=== PATIENT | male | born 1950 | race Caucasian/White ===

== ENCOUNTER 2017-03-28 10:54 | Emergency (ER) | payer MEDICARE ==
[~2017-03-28] VITALS: Ht 182.9 cm; Wt 68.0 kg
[2017-03-28 10:55] VITALS: BP 140/77; PULSE 82; RESP 16; TEMP 98.1; O2SAT 98
[2017-03-28] MEDS ORDERED: ALPR.5 PO (11:28)
[2017-03-28] MEDS ORDERED: CITA20TA4 PO (11:28)
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
[2017-03-28] MEDS ORDERED: CEPH-460 PO (12:33)
[2017-03-28] MEDS ORDERED: IBUP-232 PO (12:39)
[2017-03-28] MEDS ORDERED: TETANUS/DIPHTHERIA TOXOID ADULT 0.5 ML VIAL IM ONE (12:45)
== END 2017-03-28 13:09 | disposition home or self-care (01) ==
LOC: NEPK 10:54
DX: S81.811A Laceration without foreign body, right lower leg, initial encounter (principal); X58.XXXA Exposure to other specified factors, initial encounter; Y93.01 Activity, walking, marching and hiking; Y92.832 Beach as the place of occurrence of the external cause; Z23 Encounter for immunization
CPT/HCPCS: 12002; 90471; 90714

== ENCOUNTER 2017-05-21 07:24 | Emergency (ER) | payer MEDICARE ==
[~2017-05-21 07:24] MED LIST: ALPR.5 PO; CEPH-460 PO; CITA20TA4 PO; IBUP-232 PO
[2017-05-21 07:33] VITALS: BP 134/82; PULSE 87; RESP 18; TEMP 98.7; O2SAT 98
[2017-05-21] MEDS ORDERED: ACETAMINOPHEN/HYDROcodone 325 MG/5 MG TAB PO ONE (08:00)
[2017-05-21] MEDS ORDERED: predniSONE 20 MG TAB PO ONE (08:00)
[2017-05-21] MEDS ORDERED: ORPHENADRINE INJ 60 MG/2 ML AMP IM ONE (08:00)
[2017-05-21] MEDS ORDERED: KETOROLAC TROMETHAMINE 60 MG/2 ML (IM) VIAL IM ONE (08:00)
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
[2017-05-21] MEDS ORDERED: ROBA500T PO (08:11)
[2017-05-21] MEDS ORDERED: IBUP-232 PO (08:11)
[2017-05-21] MEDS ORDERED: CEPH-460 PO (08:11)
[2017-05-21] MEDS ORDERED: MEDR4PAK PO (08:12)
[2017-05-21 09:13] VITALS: BP 132/75
== END 2017-05-21 09:15 | disposition home or self-care (01) ==
LOC: NEPD 07:24
DX: L03.113 Cellulitis of right upper limb (principal)
CPT/HCPCS: 96372; 99284; J1885; J2360; J7512

== ENCOUNTER 2017-05-22 04:09 | Inpatient (IN) | payer MEDICARE ==
[2017-05-22] VITALS (15 sets, daily range): BP systolic 91–173; BP diastolic 52–104; PULSE 72–167; RESP 15–20; TEMP 97–99.4; O2SAT 92–100
[~2017-05-22] VITALS: Ht 182.9 cm; Wt 75.0 kg
[~2017-05-22 04:09] MED LIST changes: +MEDR4PAK PO; +ROBA500T PO
[2017-05-22] MEDS ORDERED: SODIUM CHLOR 0.9% 1000 ML INJ 1,000 ML IV SCH ×2 (04:43→05:52)
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
[2017-05-22 05:08] LABS: AUTOMATED NEUTROPHIL # 13.1 TH/MM3 (1.8-7.7); BASOPHIL % 0.2 % (0.0-2.0); HEMATOCRIT 48.1 % (39.0-51.0); HEMOGLOBIN 16.7 GM/DL (13.0-17.0); LYMPH % 1.6 % (9.0-44.0); LYMPHOCYTE # 0.2 TH/MM3 (1.0-4.8); MEAN CELL VOLUME 95.1 FL (80.0-100.0); MEAN CORPUSCULAR HGB CONC 34.7 % (32.0-36.0); MEAN PLATELET VOLUME 8.2 FL (7.0-11.0); MONO % 5.7 % (0.0-8.0); MONOCYTE # 0.8 TH/MM3 (0-0.9); NEUT % 92.5 % (16.0-70.0); PLATELET COUNT 133 TH/MM3 (150-450); RED BLOOD COUNT 5.06 MIL/MM3 (4.50-5.90); RED CELL DISTRIBUTION WIDTH 13.3 % (11.6-17.2); WHITE BLOOD COUNT 14.2 TH/MM3 (4.0-11.0)
[2017-05-22 05:17] LABS: INTERNATIONAL NORMALIZED RATIO 1.2 RATIO; PROTHROMBIN TIME - PATIENT 11.7 SEC (9.8-11.6)
[2017-05-22 05:30] LABS: ALBUMIN 3.9 GM/DL (3.4-5.0); AST (GOT) 62 U/L (15-37); BICARBONATE 23.8 MEQ/L (21.0-32.0); BLOOD UREA NITROGEN 27 MG/DL (7-18); CALCIUM 9.3 MG/DL (8.5-10.1); CHLORIDE 96 MEQ/L (98-107); CREATININE 1.49 MG/DL (0.60-1.30); GLOMERULAR FILTRATION RATE 47 ML/MIN (>89); GLUCOSE,RANDOM 85 MG/DL (74-106); SODIUM (NA) 133 MEQ/L (136-145)
[2017-05-22 05:31] LABS: LACTIC ACID SEPSIS PROTOCOL 3.4 mmol/L (0.4-2.0)
[2017-05-22 05:32] LABS: ALT (GPT) 74 U/L (12-78)
[2017-05-22 05:33] LABS: ALKALINE PHOSPHATASE 118 U/L (45-117); TOTAL BILIRUBIN ADULT 2.5 MG/DL (0.2-1.0); TOTAL PROTEIN 8.4 GM/DL (6.4-8.2)
--- NOTE | 2017-05-22 05:34 | RADRPT ---
EXAM DATE/TIME: 05/22/2017 05:23 [facility] COMPARISON: No previous studies available for comparison. INDICATIONS : Fever. MEDICAL HISTORY : Unable to obtain. SURGICAL HISTORY : Unable to obtain. ENCOUNTER: Initial ACUITY: 1 day PAIN SCORE: Non-responsive. LOCATION: Bilateral chest FINDINGS: Single AP view of the chest. The lungs are clear. Cardiomediastinal silhouette within normal limits. No evidence of pleural effusion or pneumothorax. CONCLUSION: No acute cardiopulmonary disease identified. Scott Morfin MD on May 22, 2017 at 5:32 Board Certified Radiologist. This report was verified electronically.
--- NOTE | 2017-05-22 05:44 | RADRPT ---
EXAM DATE/TIME: 05/22/2017 05:16 [facility] COMPARISON: No previous studies available for comparison. INDICATIONS : Altered mental status. RADIATION DOSE: 52.13 CTDIvol (mGy) MEDICAL HISTORY : Non-responsive. SURGICAL HISTORY : Non-responsive. ENCOUNTER: Initial ACUITY: 1 day PAIN SCALE: Non-responsive LOCATION: cranial TECHNIQUE: Multiple contiguous axial images were obtained of the head. Using automated exposure control and adj ustment of the mA and/or kV according to patient size, radiation dose was kept as low as reasonably a chievable to obtain optimal diagnostic quality images. DICOM format image data is available electro nically for review and comparison. FINDINGS: CEREBRUM: The ventricles are normal for age. No evidence of midline shift, mass lesion, hemorrhage or acute in farction. No extra-axial fluid collections are seen. POSTERIOR FOSSA: The cerebellum and brainstem are intact. The 4th ventricle is midline. The cerebellopontine angle i s unremarkable. EXTRACRANIAL: The visualized portion of the orbits is intact. SKULL: The calvaria is intact. No evidence of skull fracture. CONCLUSION: No acute intracranial findings. Scott Morfin MD on May 22, 2017 at 5:36 Board Certified Radiologist. This report was verified electronically.
[2017-05-22] MEDS ORDERED: PIPERACIL-TAZO 3.375 GM PREMIX 50 ML IV ONE (05:45)
[2017-05-22] MEDS ORDERED: VANCOMYCIN INJ 1,000 MG in SODIUM CHLOR 0.9% 250 ML INJ 250 ML IV ONE (05:45)
[2017-05-22 05:52] LABS: BANDS 16 % (0-6); LYMPHOCYTES 4 % (9-44); METAMYELOCYTES 14 % (0-1); MONOCYTES 3 % (0-8); NEUTROPHIL # MANUAL DIFF 13.2 TH/MM3 (1.8-7.7); POLYS (SEG NEUTROPHILS) 63 % (16-70)
[2017-05-22 05:54] LABS: TOXIC VACUOLATION PRESENT (NONE SEEN)
[2017-05-22] MEDS ORDERED: MAGNESIUM HYDROXIDE SUSP 30 ML CUP PO PRN (06:15)
[2017-05-22] MEDS ORDERED: BISACODYL 10 MG SUPP RECTAL PRN (06:15)
[2017-05-22] MEDS ORDERED: SENNOSIDES 8.6 MG TAB PO PRN (06:15)
[2017-05-22] MEDS ORDERED: ONDANSETRON HCL 4 MG/2 ML VIAL IVP PRN (06:15)
[2017-05-22] MEDS ORDERED: Vancomycin Consult Pharmacy 1 EA OTHER SCH (06:15)
[2017-05-22] MEDS ORDERED: SODIUM CHLORIDE 0.9% FLUSH 10 ML FLUSH IV FLUSH PRN (06:15)
[2017-05-22] MEDS ORDERED: LACTULOSE SYRUP 20 GM/30 ML CUP PO PRN (06:15)
[2017-05-22 06:30] LABS: BILIRUBIN, URINE NEG (NEG); BLOOD, URINE NEG (NEG); GLUCOSE,URINE NEG (NEG); HYALINE CAST, URINE 1 /lpf (RARE); KETONE, URINE 10 mg/dL (NEG); MUCUS URINE FEW /lpf (OCC); NITRITE,URINE NEG (NEG); URINE COLOR YELLOW (YELLW/STRAW); URINE LEUKOCYTE ESTERASE TRACE (NEG)
[2017-05-22] MEDS: SODIUM CHLOR 0.9% 1000 ML INJ 1,000 ML IV SCH ×2 (07:06→18:39)
[2017-05-22] MEDS ORDERED: MIDAZOLAM HCL 2 MG/2 ML VIAL IV PUSH ONE (07:30)
--- NOTE | 2017-05-22 07:35 | PD ---
Physical Exam Date Seen by Provider: May 22, 2017 Narrative 66-year-old male presents to the department with low back pain altered mental status. Patient was evaluated and admitted. While patient was in the emergency department, he became increasingly anxious and began pulling on IV lines and equipment. I decided to administer Versed 2 mg so that patient may go to MRI to rule out epidural abscess. Pt will be monitored. An MRI screen form was not completed secondary to AMS. We attempted to reach the family for any information, however, we were unable to do so. Pt was being transported for admission prior to obtaining this form. Pt left in stable condition, premedicated for the MRI. Data Data Last Documented VS Vital Signs Date Time Temp Pulse Resp B/P (MAP) Pulse Ox O2 Delivery O2 Flow Rate FiO2 05/22/17 06:05 92 16 146/72 (96) 99 Room Air 05/22/17 04:31 98.0 Orders Orders Sepsis Workup Initiated (05/22/17 ) Electrocardiogram (05/22/17 04:43) Complete Blood Count With Diff (05/22/17 04:43) Comprehensive Metabolic Panel (05/22/17 04:43) Lactic Acid Sepsis Protocol (05/22/17 04:43) Urinalysis - C+S If Indicated (05/22/17 04:43) Blood Culture (05/22/17 04:43) Chest, Single Ap (05/22/17 04:43) Blood Glucose (05/22/17 04:43) Ecg Monitoring (05/22/17 04:43) Iv Access Insert/Monitor (05/22/17 04:43) Oximetry (05/22/17 04:43) Oxygen Administration (05/22/17 04:43) Ct Brain W/O Iv Contrast(Rout) (05/22/17 04:43) Mri L Spine W&W/O Contrast (05/22/17 ) Act Partial Throm Time (Ptt) (05/22/17 04:43) Prothrombin Time / Inr (Pt) (05/22/17 04:43) Drug Screen, Random Urine (05/22/17 04:43) Alcohol (Ethanol) (05/22/17 04:43) Sodium Chlor 0.9% 1000 Ml Inj (Ns 1000 M (05/22/17 04:43) Vancomycin Inj (Vancomycin Inj) (05/22/17 05:45) Piperacil-Tazo 3.375 Gm Premix (Zosyn 3. (05/22/17 05:45) Sodium Chlor 0.9% 1000 Ml Inj (Ns 1000 M (05/22/17 05:52) Admit Order (Ed Use Only) (05/22/17 06:15) Labs Laboratory Tests Test 05/22/17 04:50 05/22/17 05:50 White Blood Count 14.2 TH/MM3 Red Blood Count 5.06 MIL/MM3 Hemoglobin 16.7 GM/DL Hematocrit 48.1 % Mean Corpuscular Volume 95.1 FL Mean Corpuscular Hemoglobin 33.0 PG Mean Corpuscular Hemoglobin Concent 34.7 % Red Cell Distribution Width 13.3 % Platelet Count 133 TH/MM3 Mean Platelet Volume 8.2 FL Neutrophils (%) (Auto) 92.5 % Lymphocytes (%) (Auto) 1.6 % Monocytes (%) (Auto) 5.7 % Eosinophils (%) (Auto) 0.0 % Basophils (%) (Auto) 0.2 % Neutrophils # (Auto) 13.1 TH/MM3 Lymphocytes # (Auto) 0.2 TH/MM3 Monocytes # (Auto) 0.8 TH/MM3 Eosinophils # (Auto) 0.0 TH/MM3 Basophils # (Auto) 0.0 TH/MM3 CBC Comment AUTO DIFF Differential Total Cells Counted 100 Neutrophils % (Manual) 63 % Band Neutrophils % 16 % Lymphocytes % 4 % Monocytes % 3 % Neutrophils # (Manual) 13.2 TH/MM3 Metamyelocytes 14 % Differential Comment FINAL DIFF MANUAL Atypical Lymphocytes % Toxic Vacuolation PRESENT Platelet Estimate LOW Platelet Morphology Comment NORMAL Red Cell Morphology Comment NORMAL Prothrombin Time 11.7 SEC Prothromb Time International Ratio 1.2 RATIO Activated Partial Thromboplast Time 32.3 SEC Blood Urea Nitrogen 27 MG/DL Creatinine 1.49 MG/DL Random Glucose 85 MG/DL Total Protein 8.4 GM/DL Albumin 3.9 GM/DL Calcium Level 9.3 MG/DL Alkaline Phosphatase 118 U/L Aspartate Amino Transf (AST/SGOT) 62 U/L Alanine Aminotransferase (ALT/SGPT) 74 U/L Total Bilirubin 2.5 MG/DL Sodium Level 133 MEQ/L Potassium Level 3.9 MEQ/L Chloride Level 96 MEQ/L Carbon Dioxide Level 23.8 MEQ/L Anion Gap 13 MEQ/L Estimat Glomerular Filtration Rate 47 ML/MIN Lactic Acid Level 3.4 mmol/L Ethyl Alcohol Level LESS THAN 3 MG/DL Urine Color YELLOW Urine Turbidity HAZY Urine pH 5.0 Urine Specific [place] 1.012 Urine Protein TRACE mg/dL Urine Glucose (UA) NEG mg/dL Urine Ketones 10 mg/dL Urine Occult Blood NEG Urine Nitrite NEG Urine Bilirubin NEG Urine Urobilinogen LESS THAN 2.0 MG/DL Urine Leukocyte Esterase TRACE Urine RBC 1 /hpf Urine WBC 2 /hpf Urine Hyaline Casts 1 /lpf Urine Granular Casts 1 /lpf Urine Mucus FEW /lpf Urine Yeast (Budding) FEW Microscopic Urinalysis Comment CATH-CULT NOT IND Urine Opiates Screen NEG Urine Barbiturates Screen NEG Urine Amphetamines Screen NEG Urine Benzodiazepines Screen NEG Urine Cocaine Screen POS Urine Cannabinoids Screen NEG MDM Supervised Visit with BIB: Yes Diagnosis Primary Impression: Altered mental status Additional Impressions: Substance abuse Lower back pain Sepsis Jeanne Heard May 22, 2017 07:35
[2017-05-22] MEDS: DOCUSATE SODIUM 50 MG/SENNA 8.6 MG TAB PO SCH ×2 (09:00→21:00)
[2017-05-22] MEDS: SODIUM CHLORIDE 0.9% FLUSH 10 ML FLUSH IV FLUSH SCH ×2 (09:00→21:00)
[2017-05-22] MEDS ORDERED: LORazepam 1 MG TAB PO PRN (11:30)
[2017-05-22] MEDS ORDERED: FLUMAZENIL 0.5 MG/5 ML VIAL IV PUSH PRN (11:30)
--- NOTE | 2017-05-22 11:30 | HHI.HP ---
HPI Service [facility] Primary Care Physician Unknown Admission Diagnosis sepsis, AMS, lower back pain, IV drug abuse Diagnoses: (1) Sepsis (2) Toxic metabolic encephalopathy (3) Bandemia (4) ARF (acute renal failure) (5) Leukocytosis (6) Acidosis, lactic (7) Polysubstance abuse (8) Lower back pain Chief Complaint: Initial presentation with back pain, AMS Travel History International Travel<30 Days: No Contact w/Intl Traveler <30 Da: No Traveled to Known Affected Are: No Sepsis Criteria SIRS Criteria (2 or more): Heart rate over 90, WBC > 77149, < 4000 or > 10% bands Severe Sepsis (+one): Lactate >2 Criteria Outcome: Meets sepsis criteria History of Present Illness 66 years old male with a history of arthritis was brought to the ED initially for complaint of back pain, mentation change of unknown duration, and patient was found to have UDS positive for cocaine. While in the emergency department apparently patient became increasingly anxious and combative and was trying to pull out his IV lines. Initially MRI of the spine was ordered to rule out epidural abscess, however this hasn't been completed secondary to patient's altered mental status change. Patient was then transported on the floor and admitted to medicine team. Patient continue to be restless and attempted to pull out his IV lines despite soft upper restraints in place. Although patient was alert, and oriented to self but not place and date, he was requested that he will be left alone and discharge out of this place. Abnormal labs included WBC 14.2 with bandemia, initial lactic acid 3.4, BUN/abdomen 27/ 1.49 and a UDS positive for cocaine. Head CT with no acute intracranial abnormality findings and a chest x-ray unremarkable. Unable to obtain an accurate review of organ systems as patient denies ANYTHING Review of Systems ROS Limitations: Altered Mental Status, Combative Except as stated in HPI: all other systems reviewed are Neg Past Family Social History Past Medical History Arthritis Anxiety Past Surgical History Denies any prior surgeries Reported Medications Medrol Dosepak (Methylprednisolone) 4 Mg Dspk 4 Mg PO DIRECTED Per Pharmacist direction Ibuprofen 600 Mg Tab 600 Mg PO TID 5 Days Robaxin (Methocarbamol) 500 Mg Tab 500 Mg PO TID 3 Days Keflex (Cephalexin) 500 Mg Cap 500 Mg PO Q8H 7 Days Ibuprofen 600 Mg Tab 600 Mg PO Q8HR PRN Keflex (Cephalexin) 500 Mg Capsule 500 Mg PO Q6H 7 Days Reported Citalopram (Citalopram Hydrobromide) 20 Mg Tab 20 Mg PO DAILY Xanax (Alprazolam) 0.5 Mg Tab 0.5 Mg PO Q4H PRN Allergies: Coded Allergies: No Known Allergies (Unverified Allergy, Unknown, 05/22/17) Family History He reported that he has no family history of heart disease, cancer Social History Alcohol Use: No Tobacco Use: No Substance Use: No Physical Exam Vital Signs Vital Signs Date Time Temp Pulse Resp B/P (MAP) Pulse Ox O2 Delivery O2 Flow Rate FiO2 05/22/17 08:00 97.0 167 20 155/104 (121) 05/22/17 07:42 97.9 78 16 140/83 (102) 98 05/22/17 07:25 78 16 05/22/17 06:05 92 16 146/72 (96) 99 Room Air 05/22/17 04:57 20 05/22/17 04:57 Room Air 05/22/17 04:31 98.0 05/22/17 04:19 98 15 173/95 (121) 99 Room Air Physical Exam GENERAL: This is a well-nourished, well-developed patient, in no apparent distress. SKIN: No rashes, ecchymoses or lesions. Cool and dry. HEAD: Atraumatic. Normocephalic. No temporal or scalp tenderness. EYES: Pupils equal round and reactive. Extraocular motions intact. No scleral icterus. No injection or drainage. ENT: Nose without bleeding, purulent drainage or septal hematoma. Throat without erythema, tonsillar hypertrophy or exudate. Uvula midline. Airway patent. NECK: Trachea midline. No JVD or lymphadenopathy. Supple, nontender, no meningeal signs. CARDIOVASCULAR: Regular rate and rhythm without murmurs, gallops, or rubs. RESPIRATORY: Clear to auscultation. Breath sounds equal bilaterally. No wheezes , rales, or rhonchi. GASTROINTESTINAL: Abdomen soft, non-tender, nondistended. No hepato-splenomegaly , or palpable masses. No guarding. MUSCULOSKELETAL: Extremities without clubbing, cyanosis, or edema. No joint tenderness, effusion, or edema noted. No calf tenderness. Negative Homans sign bilaterally. NEUROLOGICAL: Awake and alert. Cranial nerves II through XII intact. Motor and sensory grossly within normal limits. Five out of 5 muscle strength in all muscle groups. Normal speech. Laboratory Laboratory Tests Test 05/22/17 04:50 05/22/17 05:50 05/22/17 07:06 White Blood Count 14.2 Red Blood Count 5.06 Hemoglobin 16.7 Hematocrit 48.1 Mean Corpuscular Volume 95.1 Mean Corpuscular Hemoglobin 33.0 Mean Corpuscular Hemoglobin Concent 34.7 Red Cell Distribution Width 13.3 Platelet Count 133 Mean Platelet Volume 8.2 Neutrophils (%) (Auto) 92.5 Lymphocytes (%) (Auto) 1.6 Monocytes (%) (Auto) 5.7 Eosinophils (%) (Auto) 0.0 Basophils (%) (Auto) 0.2 Neutrophils # (Auto) 13.1 Lymphocytes # (Auto) 0.2 Monocytes # (Auto) 0.8 Eosinophils # (Auto) 0.0 Basophils # (Auto) 0.0 CBC Comment AUTO DIFF Differential Total Cells Counted 100 Neutrophils % (Manual) 63 Band Neutrophils % 16 Lymphocytes % 4 Monocytes % 3 Neutrophils # (Manual) 13.2 Metamyelocytes 14 Differential Comment FINAL DIFF MANUAL Atypical Lymphocytes Toxic Vacuolation PRESENT Platelet Estimate LOW Platelet Morphology Comment NORMAL Red Cell Morphology Comment NORMAL Prothrombin Time 11.7 Prothromb Time International Ratio 1.2 Activated Partial Thromboplast Time 32.3 Blood Urea Nitrogen 27 Creatinine 1.49 Random Glucose 85 Total Protein 8.4 Albumin 3.9 Calcium Level 9.3 Alkaline Phosphatase 118 Aspartate Amino Transf (AST/SGOT) 62 Alanine Aminotransferase (ALT/SGPT) 74 Total Bilirubin 2.5 Sodium Level 133 Potassium Level 3.9 Chloride Level 96 Carbon Dioxide Level 23.8 Anion Gap 13 Estimat Glomerular Filtration Rate 47 Lactic Acid Level 3.4 2.7 Ethyl Alcohol Level LESS THAN 3 Urine Color YELLOW Urine Turbidity HAZY Urine pH 5.0 Urine Specific [place] 1.012 Urine Protein TRACE Urine Glucose (UA) NEG Urine Ketones 10 Urine Occult Blood NEG Urine Nitrite NEG Urine Bilirubin NEG Urine Urobilinogen LESS THAN 2.0 Urine Leukocyte Esterase TRACE Urine RBC 1 Urine WBC 2 Urine Hyaline Casts 1 Urine Granular Casts 1 Urine Mucus FEW Urine Yeast (Budding) FEW Microscopic Urinalysis Comment CATH-CULT NOT IND Urine Opiates Screen NEG Urine Barbiturates Screen NEG Urine Amphetamines Screen NEG Urine Benzodiazepines Screen NEG Urine Cocaine Screen POS Urine Cannabinoids Screen NEG Date/Time Source Procedure Growth Status 05/22/17 04:50 Blood Peripheral Aerobic Blood Culture Pending Received 05/22/17 04:50 Blood Peripheral Anaerobic Blood Culture Pending Received Result Diagram: 05/22/1744905/22/17449 Imaging Last Impressions Head CT 05/22/17442 Signed Impressions: Service Date/Time: Monday, May 22, 2017 05:16 - CONCLUSION: No acute intracranial findings. Scott Morfin MD Chest X-Ray 05/22/17442 Signed Impressions: Service Date/Time: Monday, May 22, 2017 05:23 - CONCLUSION: No acute cardiopulmonary disease identified. Scott Morfin MD Caprini VTE Risk Assessment Caprini VTE Risk Assessment: Mod/High Risk (score >= 2) Caprini Risk Assessment Model Point Value = 1 Point Value = 2 Point Value = 3 Point Value = 5 Age 41-60 Minor surgery BMI > 25 kg/m2 Swollen legs Varicose veins or History of unexplained or recurrent spontaneous Oral contraceptives or hormone replacement Sepsis (< 1 month) Serious lung disease, including pneumonia (< 1 month) Abnormal pulmonary function Acute myocardial infarction Congestive heart failure (< 1 month) History of inflammatory bowel disease Medical patient at bed rest Age 61-74 Arthroscopic surgery Major open surgery (> 45 min) Laparoscopic surgery (> 45 min) Malignancy Confined to bed (> 72 hours) Immobilizing plaster cast Central venous access Age >= 75 History of VTE Family history of VTE Factor V Leiden Prothrombin [id number] Lupus anticoagulant Anticardiolipin antibodies Elevated serum homocysteine Heparin-induced thrombocytopenia Other congenital or acquired thrombophilia Stroke (< 1 month) Elective arthroplasty Hip, pelvis, or leg fracture Acute spinal cord injury (< 1 month) Prophylaxis Regimen Total Risk Factor Score Risk Level Prophylaxis Regimen 0-1 Low Early ambulation 2 Moderate Order ONE of the following: *Sequential Compression Device (SCD) *Heparin 5000 units SQ BID 3-4 Higher Order ONE of the following medications: *Heparin 5000 units SQ TID *Enoxaparin/Lovenox 40 mg SQ daily (WT < 150 kg, CrCl > 30 mL/min) *Enoxaparin/Lovenox 30 mg SQ daily (WT < 150 kg, CrCl > 10-29 mL/min) *Enoxaparin/Lovenox 30 mg SQ BID (WT < 150 kg, CrCl > 30 mL/min) AND/OR *Sequential Compression Device (SCD) 5 or more Highest Order ONE of the following medications: *Heparin 5000 units SQ TID (Preferred with Epidurals) *Enoxaparin/Lovenox 40 mg SQ daily (WT < 150 kg, CrCl > 30 mL/min) *Enoxaparin/Lovenox 30 mg SQ daily (WT < 150 kg, CrCl > 10-29 mL/min) *Enoxaparin/Lovenox 30 mg SQ BID (WT < 150 kg, CrCl > 30 mL/min) AND *Sequential Compression Device (SCD) Assessment and Plan Problem List: (1) Sepsis ICD Code: A41.9 - Sepsis, unspecified organism Status: Acute (2) Bandemia ICD Code: D72.825 - Bandemia (3) Toxic metabolic encephalopathy ICD Code: G92 - Toxic encephalopathy (4) Leukocytosis ICD Code: D72.829 - Elevated white blood cell count, unspecified (5) Acidosis, lactic ICD Code: E87.2 - Acidosis (6) Polysubstance abuse ICD Code: F19.10 - Other psychoactive substance abuse, uncomplicated (7) ARF (acute renal failure) ICD Code: N17.9 - Acute kidney failure, unspecified (8) Thrombocytopenia ICD Code: D69.6 - Thrombocytopenia, unspecified (9) Hyponatremia ICD Code: E87.1 - Hypo-osmolality and hyponatremia Assessment and Plan 66 yrs old man with Presumed Sepsis of unknown origin Head CT noted and review by me with no intracranial findings Chest x-ray noted and review by me unremarkable UA negative Check Lumbar puncture, ESR, CRP Check 2 D echo to rule endocarditis 2/2 patient h/o PSA as well as current diagnosis Need to Complete Spine MRI to r/o abscess s/p Zosyn IV x 1 in ED and Currently on Cefepime IV; Will Add Vancomycin IV pending culture reports Infectious disease specialist consultation when necessary Leukocytosis with Bandemia Currently on IV abx Check LP, Spine MRIs Monitor WBC, cultures Lactic acidosis Infectious process ? Continue with IV antibiotics as well as aggressive IVF hydration Monitor lactic acid level Toxic metabolic encephalopathy Head CT noted and review by me with no intracranial findings Chest x-ray noted and review by me unremarkable UDS positive for cocaine Check Ammonia, Lumbar puncture Alcohol abuse/withdrawal Start Precedex drip, CIWA, rally pack Consult CCM Mild Hyponatremia 2/2 Beer potomania vs dehydration vs other Gentle IVF hydration Monitor electrolyte Tachycardia likely 2/2 Alcohol withdrawal vs dehydration vs infectious process vs others However will check ACS per protocol with serial cardiac enzyme and EKG Check 2 D echo Acute renal Failure Patient's baseline unknown Continue with aggressive IVF hydration Check Renal US PRN Avoid all nephrotoxic drugs Monitor Bun/Cr Thrombocytopenia likely 2/2 Liver disease d/t alcohol Liver US PRN Monitor plt Mild Transaminitis 2/2 Liver disease However will check Hepatitis profile Monitor LFTs DVT prophylaxis: B-SCD Keep NPO Code Status Full code Physician Certification 2 Midnight Certification Type: Admission for Inpatient Services Order for Inpatient Services The services are ordered in accordance with Medicare regulations or non- Medicare payer requirements, as applicable. In the case of services not specified as inpatient-only, they are appropriately provided as inpatient services in accordance with the 2-midnight benchmark. Estimated LOS (days): 2 days is the estimated time the patient will need to remain in the hospital, assuming treatment plan goals are met and no additional complications. Post-Hospital Plan: Not yet determined Gm Hamilton MD May 22, 2017 11:30
[2017-05-22] MEDS ORDERED: MORPHINE SULFATE 2 MG/ML INJ ONE (11:56)
[2017-05-22] MEDS ORDERED: MIDAZOLAM HCL 5 MG/ML VIAL (1 ML) ONE (11:56)
[2017-05-22] MEDS ORDERED: RESP: ALBUTEROL 2.5 MG/IPRATROPIUM 0.5 MG NEB (PRN) NEB (12:00)
[2017-05-22] MEDS ORDERED: MORPHINE SULFATE 2 MG/ML INJ IV ONE (12:30)
[2017-05-22] MEDS ORDERED: MIDAZOLAM HCL 2 MG/2 ML VIAL IV ONE (12:30)
[2017-05-22] MEDS: DEXMEDETOMIDINE INJ 200 MCG in SODIUM CHLORIDE 0.9% INJ 50 ML IV PRN ×2 (12:30→23:31)
[2017-05-22] MEDS ORDERED: METOPROLOL TARTRATE 5 MG/5 ML VIAL ONE (12:34)
[2017-05-22] MEDS ORDERED: METOPROLOL TARTRATE 5 MG/5 ML VIAL IV PUSH ONE (13:15)
--- NOTE | 2017-05-22 13:33 | PD.CONS ---
[facility] Service Critical Care Medicine Consult Requested By Dr. Hamilton Reason for Consult Substance abuse with severe withdrawal Severe encephalopathy Atrial fibrillation with RVR Acute kidney injury Lactic acidosis Acute rhabdomyolysis UDS positive for cocaine Primary Care Physician Unknown History of Present Illness Patient is a 66-year-old male with history of anxiety, arthritis, substance abuse who was initially admitted to hospitalist service with altered mentation, and back pain. Found to have UDS positive for cocaine. In the ED patient was anxious and combative. Initially admitted to the medical floor. WBC 14.2 with bandemia, lactic acid 3.4, BUN/abdomen 27/1.49. Patient was given IV fluids, started on Cefepime and vanc but he continued to become more combative restless and altered. Patient was moved to the ICU and I immediately evaluated him. Patient is in four point restraints. He was unable to communicate, very agitated. Heart rate is in 160s rhythm appears to be A. fib with RVR. Patient was given 2 mg IV morphine and 2 mg IV Versed. He still intermittently agitated and started him on Precedex infusion. Patient is intermittently apneic but wakes up to painful stimuli. Because of severe agitation and drug withdrawal I am unable to get any additional history Review of Systems ROS Limitations: Altered Mental Status Past Family Social History Allergies: Coded Allergies: No Known Allergies (Unverified Allergy, Unknown, 05/22/17) Past Medical History Unable to get any history due to severe encephalopathy: Per chart: Arthritis Anxiety Substance abuse Past Surgical History Unable to obtain Reported Medications Medrol Dosepak (Methylprednisolone) 4 Mg Dspk 4 Mg PO DIRECTED Ibuprofen 600 Mg Tab 600 Mg PO TID 5 Days Robaxin (Methocarbamol) 500 Mg Tab 500 Mg PO TID 3 Days Keflex (Cephalexin) 500 Mg Cap 500 Mg PO Q8H 7 Days Ibuprofen 600 Mg Tab 600 Mg PO Q8HR PRN Citalopram (Citalopram Hydrobromide) 20 Mg Tab 20 Mg PO DAILY Xanax (Alprazolam) 0.5 Mg Tab 0.5 Mg PO Q4H PRN Active Ordered Medications Reviewed Family History Unable to obtain due to altered mental status Social History Urine drug screen positive for cocaine Physical Exam Vital Signs Vital Signs Date Time Temp Pulse Resp B/P (MAP) Pulse Ox O2 Delivery O2 Flow Rate FiO2 05/22/17 08:00 97.0 167 20 155/104 (121) 05/22/17 07:42 97.9 78 16 140/83 (102) 98 05/22/17 07:25 78 16 05/22/17 06:05 92 16 146/72 (96) 99 Room Air 05/22/17 04:57 20 05/22/17 04:57 Room Air 05/22/17 04:31 98.0 05/22/17 04:19 98 15 173/95 (121) 99 Room Air Physical Exam GENERAL: This is a well-nourished, well-developed patient, severely agitated tachycardic; intermittently apneic after receiving Versed SKIN: No rashes. Cool and dry. HEAD: Atraumatic. Normocephalic. No temporal or scalp tenderness. EYES: Pupils equal round and reactive. ENT: Uvula midline. Airway patent. NECK: Trachea midline. No JVD or lymphadenopathy. CARDIOVASCULAR: Tachycardic in atrial fibrillation with RVR no murmurs RESPIRATORY: Clear to auscultation. Breath sounds equal bilaterally. GASTROINTESTINAL: Abdomen soft, non-tender, nondistended. MUSCULOSKELETAL: Extremities without clubbing, cyanosis, or edema. NEUROLOGICAL: Patient is in four point restraints severely agitated, does not verbalize. Moves all extremities spontaneously Laboratory Laboratory Tests Test 05/22/17 04:50 05/22/17 05:50 05/22/17 07:06 05/22/17 12:40 White Blood Count 14.2 Red Blood Count 5.06 Hemoglobin 16.7 Hematocrit 48.1 Mean Corpuscular Volume 95.1 Mean Corpuscular Hemoglobin 33.0 Mean Corpuscular Hemoglobin Concent 34.7 Red Cell Distribution Width 13.3 Platelet Count 133 Mean Platelet Volume 8.2 Neutrophils (%) (Auto) 92.5 Lymphocytes (%) (Auto) 1.6 Monocytes (%) (Auto) 5.7 Eosinophils (%) (Auto) 0.0 Basophils (%) (Auto) 0.2 Neutrophils # (Auto) 13.1 Lymphocytes # (Auto) 0.2 Monocytes # (Auto) 0.8 Eosinophils # (Auto) 0.0 Basophils # (Auto) 0.0 CBC Comment AUTO DIFF Differential Total Cells Counted 100 Neutrophils % (Manual) 63 Band Neutrophils % 16 Lymphocytes % 4 Monocytes % 3 Neutrophils # (Manual) 13.2 Metamyelocytes 14 Differential Comment FINAL DIFF MANUAL Atypical Lymphocytes Toxic Vacuolation PRESENT Platelet Estimate LOW Platelet Morphology Comment NORMAL Red Cell Morphology Comment NORMAL Erythrocyte Sedimentation Rate 2 Prothrombin Time 11.7 Prothromb Time International Ratio 1.2 Activated Partial Thromboplast Time 32.3 Blood Urea Nitrogen 27 Creatinine 1.49 Random Glucose 85 Total Protein 8.4 Albumin 3.9 Calcium Level 9.3 Alkaline Phosphatase 118 Aspartate Amino Transf (AST/SGOT) 62 Alanine Aminotransferase (ALT/SGPT) 74 Total Bilirubin 2.5 Sodium Level 133 Potassium Level 3.9 Chloride Level 96 Carbon Dioxide Level 23.8 Anion Gap 13 Estimat Glomerular Filtration Rate 47 Lactic Acid Level 3.4 2.7 Ethyl Alcohol Level LESS THAN 3 Urine Color YELLOW Urine Turbidity HAZY Urine pH 5.0 Urine Specific [place] 1.012 Urine Protein TRACE Urine Glucose (UA) NEG Urine Ketones 10 Urine Occult Blood NEG Urine Nitrite NEG Urine Bilirubin NEG Urine Urobilinogen LESS THAN 2.0 Urine Leukocyte Esterase TRACE Urine RBC 1 Urine WBC 2 Urine Hyaline Casts 1 Urine Granular Casts 1 Urine Mucus FEW Urine Yeast (Budding) FEW Microscopic Urinalysis Comment CATH-CULT NOT IND Urine Opiates Screen NEG Urine Barbiturates Screen NEG Urine Amphetamines Screen NEG Urine Benzodiazepines Screen NEG Urine Cocaine Screen POS Urine Cannabinoids Screen NEG Date/Time Source Procedure Growth Status 05/22/17 04:50 Blood Peripheral Aerobic Blood Culture Pending Received 05/22/17 04:50 Blood Peripheral Anaerobic Blood Culture Pending Received Result Diagram: 05/22/17 0450 05/22/[address] of the head, chest x-ray negative for acute findings Septic Shock Reassessment Septic shock perfusion: reassessment completed Assessment and Plan Assessment and Plan ASSESSMENT: Substance abuse with severe withdrawal Severe encephalopathy Atrial fibrillation with RVR Acute kidney injury Lactic acidosis Acute rhabdomyolysis UDS positive for cocaine PLAN: NEURO: - Urine drug screen positive for cocaine - Use Precedex for sedation and withdrawal symptoms - CIWA protocol. Continue thiamine RESP: - Nasal cannula oxygen - Patient was intermittently apneic after low dose Versed - DuoNeb every 6 hours when necessary CV: - Normal saline IV fluids 2L bolus and 100 ml per hour - Trend lactic acid - IV metoprolol 2.5 mg 1, Cardizem bolus and infusion for A. fib rate control - Atrial fibrillation is most likely from drug withdrawal will not anticoagulate at this time - If persistent check 2-D echo GI: - Nothing by mouth until mental status improved, IV famotidine : - Monitor renal function closely. Aggressive fluid resuscitation - Monitor CPK ID: - Possible sepsis had been started on vancomycin and cefepime - Discontinue vancomycin and monitor cultures HEME: - Leukocytosis most likely stress related. Monitor CBC, CMP ENDO: - Electrolyte replacement per protocol PROPH: - Bilateral lower extremity SCDs. Lovenox, Famotidine LINES: - Utilize peripheral IVs, central line if needed CC time 40 min Code Status Full Geovany Davila MD May 22, 2017 13:33
[2017-05-22 13:44] LABS: TROPONIN I 0.06 NG/ML (0.02-0.05)
[2017-05-22] MEDS ORDERED: DILTIAZEM HCL 25 MG/5 ML VIAL IV PUSH ONE (14:00)
[2017-05-22] MEDS: THIAMINE INJ 100 MG in SODIUM CHLORIDE 0.9% INJ 100 ML IV SCH (14:00)
[2017-05-22] MEDS ORDERED: SODIUM CHLOR 0.9% 1000 ML INJ 1,000 ML IV ONE ×2 (14:15)
--- NOTE | 2017-05-22 15:05 | EKG ---
Date Performed: 05/22/2017 Time Performed: 12:04:13 PTAGE: 66 years EKG: ATRIAL FIBRILLATION WITH RAPID VENTRICULAR RESPONSE NONSPECIFIC ST & T-WAVE ABNORMALITY ABN ORMAL RHYTHM ECG PREVIOUS TRACING : 05/22/2017 04.52 Compared to previous tracing, atrial fibrillation has repla pamela Sinus rhythm , heart rate has increased. DOCTOR: Richard Zafar Interpretating Date/Time 05/22/2017 15:03:48
[2017-05-22] MEDS: CEFEPIME INJ 1,000 MG in SODIUM CHLORIDE 0.9% INJ 100 ML IV SCH (18:00)
[2017-05-22 18:18] LABS: TROPONIN I 0.08 NG/ML (0.02-0.05)
[2017-05-22] MEDS: DILTIAZEM INJ 125 MG in SODIUM CHLORIDE 0.9% INJ 100 ML IV PRN (18:20)
--- NOTE | 2017-05-22 21:30 | EKG ---
Date Performed: 05/22/2017 Time Performed: 17:19:35 PTAGE: 66 years EKG: Sinus rhythm NORMAL ECG PREVIOUS TRACING : 05/22/2017 12.04 Compared to previous tracing, sinus rhythm has replaced atr ial fibrillation, heart rate has slowed, T wave amplitude has increased diffusely. DOCTOR: Richard Zafar Interpretating Date/Time 05/22/2017 21:28:37
[2017-05-23] VITALS (9 sets, daily range): BP systolic 90–168; BP diastolic 58–96; PULSE 64–86; RESP 13–28; TEMP 97.2–100; O2SAT 93–100
[2017-05-23 02:19] LABS: TROPONIN I 0.07 NG/ML (0.02-0.05)
[2017-05-23] MEDS: SODIUM CHLOR 0.9% 1000 ML INJ 1,000 ML IV SCH ×2 (03:07→05:54)
[2017-05-23] MEDS: CEFEPIME INJ 1,000 MG in SODIUM CHLORIDE 0.9% INJ 100 ML IV SCH (05:54)
[2017-05-23] MEDS ORDERED: VANCOMYCIN INJ 1,250 MG in SODIUM CHLOR 0.9% 250 ML INJ 250 ML IV SCH (06:00)
[2017-05-23] MEDS ORDERED: Vancomycin Consult Pharmacy 1 EA OTHER SCH (07:30)
--- NOTE | 2017-05-23 07:42 | HHI.CCPN ---
Subjective Remarks/Hospital Course Patient is a 66-year-old male with history of anxiety, arthritis, substance abuse who was initially admitted to hospitalist service with altered mentation, and back pain. Found to have UDS positive for cocaine. In the ED patient was anxious and combative. Initially admitted to the medical floor. WBC 14.2 with bandemia, lactic acid 3.4, BUN/abdomen 27/1.49. Patient was given IV fluids, started on Cefepime and vanc but he continued to become more combative restless and altered. Patient was moved to the ICU and I immediately evaluated him. Patient is in four point restraints. He was unable to communicate, very agitated. Heart rate is in 160s rhythm appears to be A. fib with RVR. Patient was given 2 mg IV morphine and 2 mg IV Versed. He still intermittently agitated and started him on Precedex infusion. Patient is intermittently apneic but wakes up to painful stimuli. Because of severe agitation and drug withdrawal I am unable to get any additional history 05/23/17: Patient remains confused but intermittently oriented to person and somewhat place. Continues to repeat same words (Echolalia). Blood cultures GPC 3/4 bottles. Echo pending, also will proceed with LP. Change Cefepime to Rocephin, Add ampicillin Objective Vital Signs Date Time Temp Pulse Resp B/P (MAP) Pulse Ox O2 Delivery O2 Flow Rate FiO2 05/23/17 04:00 98.8 64 13 168/74 (105) 93 05/22/17 20:28 Nasal Cannula 2.00 Intake and Output 05/23/17 05/23/17 05/24/17 08:00 16:00 00:00 Intake Total 1574 ml Output Total 300 ml Balance 1274 ml Result Diagram: 05/22/17 0450 05/22/[address] of the head, chest x-ray negative for acute findings Objective Remarks GENERAL: This is a well-nourished, well-developed patient, agitated intermittently confused SKIN: No rashes. Cool and dry. HEAD: Atraumatic. Normocephalic. No temporal or scalp tenderness. EYES: Pupils equal round and reactive. ENT: Uvula midline. Airway patent. NECK: Trachea midline. No JVD or lymphadenopathy. Supple NO neck stiffness CARDIOVASCULAR: NSR no murmurs RESPIRATORY: Clear to auscultation. Breath sounds equal bilaterally. GASTROINTESTINAL: Abdomen soft, non-tender, nondistended. MUSCULOSKELETAL: Extremities without clubbing, cyanosis, or edema. NEUROLOGICAL: Patient is restrained, calmer today, repeats words multiple times. Moves all extremities spontaneously, following commands Urinary Catheter: Yes Assessment to: Continue A/P Assessment and Plan ASSESSMENT: Substance abuse with severe withdrawal Severe encephalopathy GPC bacteremia Severe sepsis Source of sepsis ? meningitis vs infective endocarditis Atrial fibrillation with RVR Acute kidney injury Lactic acidosis Acute rhabdomyolysis UDS positive for cocaine PLAN: NEURO: - Delirium and encephalopathy secondary to severe sepsis and drug withdrawal - Urine drug screen positive for cocaine - Use Precedex for sedation and withdrawal symptoms, PRN Versed for procedures - CIWA protocol. Continue thiamine RESP: - Nasal cannula oxygen - Aggressive pulmonary toilet - DuoNeb every 6 hours when necessary CV: - Normal saline IV fluids s/p 2L bolus and 100 ml per hour, give additional 1L bolus - Trend lactic acid - Currently in NSR, wean to DC Cardizem - Atrial fibrillation is most likely from drug withdrawal will not anticoagulate at this time, and patient needs LP - 2-D echo GI: - Nothing by mouth until mental status improved, IV famotidine : - Monitor renal function closely. Aggressive fluid resuscitation - Monitor CPK ID: - Severe sepsis with 3/4 GPC. Was on vancomycin and cefepime - Discontinue cefepime. Continue vancomycin. Start meningitic doses of Rocephin and ampicillin - ID consulted. LP today, 2 D Echo HEME: - Leukocytosis most likely from sepsis. Monitor CBC, CMP ENDO: - Electrolyte replacement per protocol PROPH: - Bilateral lower extremity SCDs. Lovenox- hold for LP, Famotidine LINES: - Utilize peripheral IVs, central line if needed CC time 40 min Geovany Davila MD May 23, 2017 07:42
[2017-05-23 07:44] LABS: HEMATOCRIT 34.6 % (39.0-51.0); HEMOGLOBIN 11.4 GM/DL (13.0-17.0); MEAN CELL VOLUME 97.5 FL (80.0-100.0); MEAN CORPUSCULAR HGB CONC 32.8 % (32.0-36.0); MEAN PLATELET VOLUME 9.4 FL (7.0-11.0); PLATELET COUNT 112 TH/MM3 (150-450); RED BLOOD COUNT 3.55 MIL/MM3 (4.50-5.90); WHITE BLOOD COUNT 11.4 TH/MM3 (4.0-11.0)
[2017-05-23] MEDS ORDERED: VANCOMYCIN INJ 1,250 MG in SODIUM CHLOR 0.9% 250 ML INJ 250 ML IV ONE (08:00)
--- NOTE | 2017-05-23 08:03 | HHI.CCPN ---
History - Height: 182.88 cm Weight: 80.3 kg Allergies: Coded Allergies: No Known Allergies (Unverified Allergy, Unknown, 05/22/17) Major 24 Hour Events Patient is not capacitated for medical decision-making. Patients sons were contacted but could not be reached. He has altered mental status and sepsis and it is in patient's best interest to proceed with lumbar puncture. Exam Patient Data - Vital Signs Date Time Temp Pulse Resp B/P (MAP) Pulse Ox O2 Delivery O2 Flow Rate FiO2 05/23/17 04:00 98.8 64 13 168/74 (105) 93 05/23/17 04:00 64 05/23/17 02:00 83 05/23/17 00:00 98.8 65 20 90/58 (69) 97 05/23/17 00:00 65 05/22/17 22:00 72 05/22/17 20:28 97 Nasal Cannula 2.00 05/22/17 20:00 100 Nasal Cannula 2.00 05/22/17 20:00 75 05/22/17 20:00 99.0 72 20 99/55 (70) 100 05/22/17 18:20 116 05/22/17 18:20 129 97/66 05/22/17 18:00 127 05/22/17 16:27 96 Nasal Cannula 2.00 05/22/17 16:00 90 05/22/17 16:00 99 Nasal Cannula 2.00 05/22/17 16:00 98.9 90 19 106/68 (81) 99 05/22/17 13:00 90 Nasal Cannula 4.00 05/22/17 12:00 165 05/22/17 12:00 99.2 165 20 123/88 (100) 95 05/22/17 08:00 97.0 167 20 155/104 (121) Results CBC/BMP: 05/23/17 0545 05/22/17 0450 Micro/ID Microbiology Date/Time Source Procedure Growth Status 05/22/17 04:50 Blood Peripheral Aerobic Blood Culture - Preliminary Gram Positive Cocci Resulted 05/22/17 04:50 Anaerobic Blood Culture - Preliminary Gram Positive Cocci Resulted Montserrat Blum MD May 23, 2017 08:03
[2017-05-23 08:13] LABS: ALBUMIN 2.2 GM/DL (3.4-5.0); BICARBONATE 14.9 MEQ/L (21.0-32.0); CALCIUM-PROTEIN CORRECTED 7.7 MG/DL (8.5-10.1); CREATININE 1.41 MG/DL (0.60-1.30); MAGNESIUM 1.8 MG/DL (1.5-2.5); TOTAL BILIRUBIN ADULT 1.1 MG/DL (0.2-1.0); TOTAL PROTEIN 5.7 GM/DL (6.4-8.2)
[2017-05-23] MEDS: AMPICILLIN INJ 2,000 MG in SODIUM CHLORIDE 0.9% INJ 100 ML IV SCH ×3 (08:28→16:29)
[2017-05-23] MEDS ORDERED: SODIUM CHLOR 0.9% 1000 ML INJ 1,000 ML IV ONE (08:30)
[2017-05-23] MEDS: DOCUSATE SODIUM 50 MG/SENNA 8.6 MG TAB PO SCH ×2 (08:38→21:00)
[2017-05-23] MEDS: SODIUM CHLORIDE 0.9% FLUSH 10 ML FLUSH IV FLUSH SCH ×2 (08:38→21:00)
[2017-05-23] MEDS ORDERED: MIDAZOLAM HCL 5 MG/ML VIAL (1 ML) ONE (08:40)
[2017-05-23] MEDS ORDERED: DEXTROSE 50% IN WATER 50 ML SYRINGE ONE (08:44)
[2017-05-23] MEDS: DEXT 5%-NACL 0.9% 1000 ML INJ 1,000 ML IV SCH ×2 (08:45→16:45)
[2017-05-23] MEDS ORDERED: DEXT 5%-NACL 0.9% 1000 ML INJ 1,000 ML IV ONE (08:45)
[2017-05-23] MEDS ORDERED: SODIUM BICARBONATE 8.4% INJ 50 MEQ/50 ML SYR IV PUSH ONE (08:45)
[2017-05-23] MEDS ORDERED: MIDAZOLAM HCL 5 MG/5 ML VIAL IV PUSH ONE ×3 (08:45→21:15)
[2017-05-23] MEDS ORDERED: DEXTROSE 50% IN WATER 50 ML VIAL(D50) IV PUSH ONE (08:45)
--- NOTE | 2017-05-23 09:23 | PD.PROCEDR ---
Procedure Note Procedure Indication: Altered Mental Status, GPC in blood Unable to obtain consent from family, procedure emergently needed. A time-out was completed verifying correct patient, procedure, site, positioning, and special equipment if applicable. The patient was placed in the RIGHT lateral decubitus position in a semi- position with help from the nursing staff. The area was cleansed and draped in usual sterile fashion. 1% lidocaine was used anesthetize the surrounding skin area. A 20-gauge 3.5-inch spinal needle was placed in the L3-L4 interspace. Cloudy yellow cerebral spinal fluid was obtained and the opening pressure not performed. Four tubes were filled with 2 mL of CSF. These were sent for the usual tests, including 1 tube to be held for further analysis if needed. Estimated Blood Loss: <1ml The patient tolerated the procedure well and there were no complications. Geovany Davila MD May 23, 2017 09:22
--- NOTE | 2017-05-23 09:39 | EKG ---
Date Performed: 05/22/2017 Time Performed: 04:52:30 PTAGE: 66 years EKG: Sinus rhythm NORMAL ECG PREVIOUS TRACING : 05/22/2017 04.51 DOCTOR: Naif Blackwell Interpretating Date/Time 05/23/2017 09:38:42
[2017-05-23] MEDS: cefTRIAXone INJ 2,000 MG in SODIUM CHLORIDE 0.9% INJ 100 ML IV SCH ×2 (10:05→20:18)
[2017-05-23] MEDS: THIAMINE INJ 100 MG in SODIUM CHLORIDE 0.9% INJ 100 ML IV SCH (10:05)
[2017-05-23 10:11] LABS: TOTAL PROTEIN,CSF 986.2 MG/DL (15.0-45.0)
[2017-05-23 10:41] LABS: BANDS 27 % (0-6); LYMPHOCYTES 5 % (9-44); METAMYELOCYTES 4 % (0-1); MONOCYTES 6 % (0-8); NEUTROPHIL # MANUAL DIFF 10.1 TH/MM3 (1.8-7.7); POLYS (SEG NEUTROPHILS) 58 % (16-70)
[2017-05-23 10:42] LABS: TOXIC GRANULATION 1+ (NORMAL); TOXIC VACUOLATION PRESENT (NONE SEEN)
[2017-05-23 11:07] LABS: CSF LYMPHOCYTES 2 %; CSF MONOCYTES 9 %; CSF NEUTROPHILS 89 %
[2017-05-23 11:16] LABS: RBC TUBE #1 4813 /MM3; SUPERNATE COLOR TUBE #1 XANTHOCHROMIC (CLEAR); WBC TUBE #1 5299 /MM3 (0-10)
--- NOTE | 2017-05-23 13:26 | MB ---
cc: ANABELL ADAMS MD DATE OF CONSULTATION: 05/23/2017 REQUESTING PHYSICIAN: Dr. Adams REASON FOR CONSULTATION: 1. Gram positive for cocci bacteremia. 2. Altered mental status. HISTORY OF PRESENT ILLNESS This is a 56 year-old white male who was admitted to hospital with altered mental status yesterday. The patient was evaluated in the emergency department and he was complaining of lower back pain. This was noted to have started 2 days ago. The patient is currently extremely somnolent and I am unable to get any history from him. He was just given sedation earlier for a lumbar puncture but prior to that he was not very awake and was slurring his speech per RN report. Blood cultures were obtained and 3/4 bottles have gram-positive cocci. The patient had a lumbar puncture and cerebrospinal fluid has a total protein of 986 and glucose of one. Gram stain shows many white cells but no organisms seen. All the patient's white blood cell count is 11.4. Yesterday's white count was only 14.2. The differential of the gram stain today shows 27% bands. The patient opens his eyes to command that is all I can get him to do. His current temperature 97.6. T-max was reported to be 99 per the R.N. report. The patient had positive, screen of the urine for cocaine. He is a CT scan of the head showed no acute intracranial findings. The lactic acid level is 1.4. PAST MEDICAL HISTORY: 1. Past medical history of arthritis 2. Anxiety. 3. Substance abuse. ALLERGIES NO KNOWN DRUG ALLERGIES. MEDICATIONS 1. Vancomycin. 2. Ceftriaxone. 3. Ampicillin. 4. Thiamine. 5. Duoneb. SOCIAL HISTORY Reportedly no tobacco or alcohol. The patient had positive toxicology screen for cocaine in the urine. REVIEW OF SYSTEMS Review of systems unable to obtain. PHYSICAL EXAMINATION: IN GENERAL: This is a well-developed male who is currently very somnolent. He barely awakens. VITAL SIGNS: Include temperature of 98.8, blood pressure 81/74. Respirations 13, heart rate 64. HEAD, EYES, EARS, NOSE, AND THROAT: The head is atraumatic. Extraocular movements cannot be fully assessed. No icterus. No conjunctival erythema. The oropharynx moist mucosa without lesions. NECK: No swelling. No adenopathy. LUNGS: Clear breath sounds. HEART: Regular S1-S2. No audible murmurs or rubs or gallops. ABDOMEN: Bowel sounds present, soft, unable to appreciate tenderness. No masses. GENITOURINARY: Normal genitalia. RECTUM: A rectal was not performed. EXTREMITIES: No clubbing or cyanosis. Both hands with edema at the dorsum of the hands. There is mild erythema at the dorsum of the right hand. No splinter hemorrhages at the nail beds. No calf tenderness appreciated. No palpable cords. SKIN: No diffuse rashes. NEUROLOGIC: Unable to assess. PSYCHIATRIC: Psych unable to assess. LABORATORY DATA WBC 11.4, platelets 112, 68% neutrophils, 27% bands, 5% lymphocytes. Hemoglobin 11.4. Sedimentation rate 2. Cerebrospinal fluid white blood count not yet available. Differential of the CSF shows 89% neutrophils and 2% lymphocytes and 9% monocytes. IMPRESSION 1. Abnormal cerebrospinal fluid suggesting meningitis and very likely bacterial meningitis. 2. Bacteremia due to gram-positive cocci question of etiology. 3. The patient presented with altered mental status and back pain. 4. Positive toxicology screen for cocaine. RECOMMENDATIONS 1. Continue ceftriaxone for meningitis coverage. 2. Continue Vancomycin. 3. Continue Ampicillin 4. Monitor the cerebrospinal fluid cultures. 5. Monitor blood cultures. 6. Monitor clinical response to the treatment. Thank you for this consultation. The patient's progress will be monitored and further recommendations will be made upon followup if necessary. Anabell Adams MD FD/daiana /11:10 AM /12:12 PM [email or web address]
[2017-05-23] MEDS ORDERED: CEFEPIME INJ 1,000 MG in SODIUM CHLORIDE 0.9% INJ 100 ML IV SCH (14:00)
[2017-05-23] MEDS: LORazepam 2 MG TAB PO PRN (22:46)
[2017-05-24] VITALS (8 sets, daily range): BP systolic 114–162; BP diastolic 69–93; PULSE 74–99; RESP 21–32; TEMP 98.1–99.9; O2SAT 93–99
[2017-05-24] MEDS: LORazepam 2 MG TAB PO PRN ×2 (00:14→08:18)
[2017-05-24] MEDS: DEXT 5%-NACL 0.9% 1000 ML INJ 1,000 ML IV SCH ×3 (05:11→16:35)
[2017-05-24 06:08] LABS: BASOPHIL % 0.2 % (0.0-2.0); EOSINOPHIL # 0.1 TH/MM3 (0-0.4); EOSINOPHIL % 0.8 % (0.0-4.0); HEMATOCRIT 34.4 % (39.0-51.0); HEMOGLOBIN 11.7 GM/DL (13.0-17.0); LYMPH % 4.9 % (9.0-44.0); LYMPHOCYTE # 0.5 TH/MM3 (1.0-4.8); MEAN CELL VOLUME 95.9 FL (80.0-100.0); MEAN CORPUSCULAR HEMOGLOBIN 32.7 PG (27.0-34.0); MEAN CORPUSCULAR HGB CONC 34.1 % (32.0-36.0); MEAN PLATELET VOLUME 9.1 FL (7.0-11.0); MONO % 11.4 % (0.0-8.0); MONOCYTE # 1.2 TH/MM3 (0-0.9); NEUT % 82.7 % (16.0-70.0); PLATELET COUNT 84 TH/MM3 (150-450); RED BLOOD COUNT 3.59 MIL/MM3 (4.50-5.90); RED CELL DISTRIBUTION WIDTH 13.9 % (11.6-17.2); WHITE BLOOD COUNT 10.9 TH/MM3 (4.0-11.0)
[2017-05-24 06:33] LABS: ALBUMIN 1.9 GM/DL (3.4-5.0); BICARBONATE 18.1 MEQ/L (21.0-32.0); CALCIUM 7.4 MG/DL (8.5-10.1); CREATININE 0.86 MG/DL (0.60-1.30); MAGNESIUM 1.9 MG/DL (1.5-2.5); PHOSPHORUS 0.7 MG/DL (2.5-4.9)
[2017-05-24 06:34] LABS: CALCIUM-PROTEIN CORRECTED 8.4 MG/DL (8.5-10.1); TOTAL BILIRUBIN ADULT 0.9 MG/DL (0.2-1.0); TOTAL PROTEIN 5.3 GM/DL (6.4-8.2)
[2017-05-24 08:10] LABS: BANDS 19 % (0-6); LYMPHOCYTES 4 % (9-44); MONOCYTES 4 % (0-8); POLYS (SEG NEUTROPHILS) 73 % (16-70); TOXIC GRANULATION 1+ (NORMAL); TOXIC VACUOLATION PRESENT (NONE SEEN)
[2017-05-24] MEDS ORDERED: MAGNESIUM OXIDE 400 MG TAB PO PRN (08:15)
[2017-05-24] MEDS ORDERED: POTASSIUM CHLOR 40 MEQ PREMIX 100 ML IV PRN ×2 (08:15)
[2017-05-24] MEDS ORDERED: POTASSIUM PHOSPHATE MONOBASIC 500 MG TAB PO PRN (08:15)
[2017-05-24] MEDS ORDERED: MAGNESIUM SULFATE INJ 2 GM in SODIUM CHLORIDE 0.9% INJ 96 ML IV PRN (08:15)
[2017-05-24] MEDS ORDERED: MAGNESIUM SULFATE INJ 4 GM in SODIUM CHLORIDE 0.9% INJ 92 ML IV PRN (08:15)
[2017-05-24] MEDS ORDERED: SODIUM PHOSPHATE INJ 30 MMOL in SODIUM CHLOR 0.9% 250 ML INJ 240 ML IV PRN (08:15)
[2017-05-24] MEDS ORDERED: POTASSIUM PHOSPHATE MONOBASIC 500 MG TAB PO/TUBE PRN (08:15)
[2017-05-24] MEDS: cefTRIAXone INJ 2,000 MG in SODIUM CHLORIDE 0.9% INJ 100 ML IV SCH ×2 (08:17→20:16)
[2017-05-24] MEDS: DEXMEDETOMIDINE INJ 200 MCG in SODIUM CHLORIDE 0.9% INJ 50 ML IV PRN ×2 (08:18→09:46)
[2017-05-24] MEDS: DOCUSATE SODIUM 50 MG/SENNA 8.6 MG TAB PO SCH ×2 (08:23→21:00)
[2017-05-24] MEDS: THIAMINE INJ 100 MG in SODIUM CHLORIDE 0.9% INJ 100 ML IV SCH (08:23)
[2017-05-24] MEDS: SODIUM CHLORIDE 0.9% FLUSH 10 ML FLUSH IV FLUSH SCH ×2 (08:23→21:00)
[2017-05-24] MEDS: VANCOMYCIN INJ 1,250 MG in SODIUM CHLOR 0.9% 250 ML INJ 250 ML IV SCH (08:23)
[2017-05-24] MEDS: HALOPERIDOL LACTATE 5 MG/ML AMP IV PRN ×2 (08:23→21:52)
[2017-05-24] MEDS ORDERED: MIDAZOLAM HCL 5 MG/ML VIAL (1 ML) ONE (09:33)
[2017-05-24] MEDS ORDERED: GADODIAMIDE PF 287 MG/ML 20 ML VIAL (for RAD MRI) IVCONTRAST ONE (10:49)
--- NOTE | 2017-05-24 12:25 | RADRPT ---
EXAM DATE/TIME: 05/24/2017 09:12 [facility] COMPARISON: CT BRAIN W/O CONTRAST, May 22, 2017, 5:16. None. INDICATIONS : Altered mental status. CONTRAST: 16 cc Omniscan (gadodiamide) IV MEDICAL HISTORY : IVDA. SURGICAL HISTORY : None. ENCOUNTER: Initial ACUITY: 1 day PAIN SCORE: 0/10 LOCATION: cranial TECHNIQUE: Multiplanar, multisequence MRI of the brain was performed both prior to and following the administrat ion of paramagnetic contrast. FINDINGS: CEREBRUM: The ventricles are normal for age. No evidence of midline shift, mass lesion, hemorrhage or acute in farction. No extraaxial fluid collections are seen. The pituitary gland and suprasellar cistern are normal in configuration. WHITE MATTER: Mild periventricular white matter small vessel ischemic changes are noted bilaterally. POSTERIOR FOSSA: The cerebellum and brainstem are intact. The 4th ventricle is midline. The cerebellopontine angle is unremarkable. The cerebellar tonsils are normal in position. DIFFUSION IMAGING: No focal areas of restricted diffusion are seen. No evidence of acute infarction. EXTRACRANIAL: The visualized portions of the orbits and paranasal sinuses are unremarkable. POST-CONTRAST: No abnormal areas of parenchymal or dural enhancement. No evidence of blood-brain barrier breakdown. CONCLUSION: 1. Mild periventricular white matter small vessel ischemic changes are noted bilaterally. 2. No acute infarct, acute hemorrhage, mass effect or extra-axial fluid collections. 3. No abnormal enhancing mass lesion. Abilio Eastman MD on May 24, 2017 at 12:20 Board Certified Radiologist. This report was verified electronically.
--- NOTE | 2017-05-24 12:39 | HHI.CCPN ---
Subjective Remarks/Hospital Course Patient is a 66-year-old male with history of anxiety, arthritis, substance abuse who was initially admitted to hospitalist service with altered mentation, and back pain. Found to have UDS positive for cocaine. In the ED patient was anxious and combative. Initially admitted to the medical floor. WBC 14.2 with bandemia, lactic acid 3.4, BUN/abdomen 27/1.49. Patient was given IV fluids, started on Cefepime and vanc but he continued to become more combative restless and altered. Patient was moved to the ICU and I immediately evaluated him. Patient is in four point restraints. He was unable to communicate, very agitated. Heart rate is in 160s rhythm appears to be A. fib with RVR. Patient was given 2 mg IV morphine and 2 mg IV Versed. He still intermittently agitated and started him on Precedex infusion. Patient is intermittently apneic but wakes up to painful stimuli. Because of severe agitation and drug withdrawal I am unable to get any additional history 05/23/17: Patient remains confused but intermittently oriented to person and somewhat place. Continues to repeat same words (Echolalia). Blood cultures GPC 3/4 bottles. Echo pending, also will proceed with LP. Change Cefepime to Rocephin, Add ampicillin 05/24/17: Continues to be septic encephalopathy. Blood cultures growing MRSA. Echo pending, but circled limited I did not see any vegetation. LP findings consistent with bacterial meningitis Objective Vital Signs Date Time Temp Pulse Resp B/P (MAP) Pulse Ox O2 Delivery O2 Flow Rate FiO2 05/24/17 08:06 95 Nasal Cannula 2.00 05/24/17 08:00 98.5 98 32 148/90 (109) Intake and Output 05/24/17 05/24/17 05/25/17 08:00 16:00 00:00 Intake Total 990 ml Output Total 800 ml Balance 190 ml Result Diagram: 05/24/17 0539 05/24/17 0539 Other Results Microbiology Date/Time Source Procedure Growth Status 05/22/17 04:50 Blood Peripheral Aerobic Blood Culture - Final S. Aureus Mrsa Complete 05/22/17 04:50 Anaerobic Blood Culture - Final S. Aureus Mrsa Complete 05/22/17 04:45 Blood Peripheral Aerobic Blood Culture - Final S. Aureus Mrsa Complete 05/22/17 04:45 Anaerobic Blood Culture - Final S. Aureus Mrsa Complete Imaging CT of the head, chest x-ray negative for acute findings Objective Remarks GENERAL: This is a well-nourished, well-developed patient, agitated sedated SKIN: No rashes. Cool and dry. HEAD: Atraumatic. Normocephalic. No temporal or scalp tenderness. EYES: Pupils equal round and reactive. ENT: Uvula midline. Airway patent. NECK: Trachea midline. No JVD or lymphadenopathy. Supple No neck stiffness CARDIOVASCULAR: NSR no murmurs RESPIRATORY: Clear to auscultation. Breath sounds equal bilaterally. GASTROINTESTINAL: Abdomen soft, non-tender, nondistended. MUSCULOSKELETAL: Extremities without clubbing, cyanosis, or edema. NEUROLOGICAL: Patient is restrained, sedated with Precedex and received Versed for MRI. Moves all extremities spontaneously, not following commands due to sedation A/P Assessment and Plan ASSESSMENT: Bacterial meningitis MRSA bacteremia Severe sepsis Substance abuse with severe withdrawal Severe encephalopathy R/o infective endocarditis Atrial fibrillation with RVR- now NSR Acute kidney injury Lactic acidosis Acute rhabdomyolysis UDS positive for cocaine PLAN: NEURO: - Delirium and encephalopathy secondary to severe sepsis and drug withdrawal - Urine drug screen positive for cocaine, history of IV opiate abuse - Use Precedex for sedation and withdrawal symptoms, PRN Versed for procedures, LP - CIWA protocol. Continue thiamine - MRI brain no acute finding. MRI spine pending RESP: - Nasal cannula oxygen - Aggressive pulmonary toilet - DuoNeb every 6 hours when necessary CV: - Normal saline IV fluids s/p 3L bolus and 100 ml per hour - Trend lactic acid, now normalized - Currently in NSR, wean to DC Cardizem - Atrial fibrillation is most likely from drug withdrawal will not anticoagulate at this time. s/p LP - 2-D echo GI: - Nothing by mouth until mental status improved, IV famotidine : - Monitor renal function closely. Aggressive fluid resuscitation - Monitor CPK ID: - Severe sepsis with MRSA bacteremia. - Continue meningitic doses of Vancomycin, Rocephin and ampicillin - ID Dr. Hernandez. LP findings consistent with bacterial meningitis - MRI spine, 2 D Echo pending HEME: - Leukocytosis from sepsis. Monitor CBC, CMP ENDO: - Electrolyte replacement per protocol PROPH: - Bilateral lower extremity SCDs. Lovenox- holding post LP, Famotidine LINES: - Utilize peripheral IVs, central line if needed CC time 35 min Geovany Davila MD May 24, 2017 12:39
--- NOTE | 2017-05-24 12:41 | RADRPT ---
EXAM DATE/TIME: 05/24/2017 09:12 [facility] COMPARISON: No previous studies available for comparison. INDICATIONS : Abscess. CONTRAST: 16 cc Omniscan (gadodiamide) IV MEDICAL HISTORY : IVDA. SURGICAL HISTORY : None. ENCOUNTER: Initial ACUITY: 1 day PAIN SCORE: 0/10 LOCATION: Paraspinal TECHNIQUE: Multiplanar multisequence MRI of the lumbar spine was performed with and without contrast. FINDINGS: Diffuse degenerative disc disease is noted from L1-S1. There is loss of disc height and signal at all lumbar disc spaces. Discogenic endplate changes are also noted to throughout the lumbar spine at all levels. No acute compression fracture or spondylolisthesis is noted. No abscess collection is identi fied. T12-L1: The thecal sac has a normal diameter. No evidence of disc bulge or protrusion. The neural foramina are patent bilaterally. L1-L2: Mild circumferential spinal stenosis is noted secondary to disc osteophyte complex, facet joint hyper trophy and ligamentous laxity. Mild bilateral foraminal narrowing is also noted. L2-L3: Mild circumferential spinal stenosis is noted secondary to diffuse disc osteophyte complex, facet eduardo nt hypertrophy and ligamentous laxity. Mild to moderate bilateral foraminal narrowing is noted. L3-L4: Mild circumferential spinal stenosis is noted secondary to diffuse disc osteophyte complex, facet eduardo nt hypertrophy and ligamentous laxity. Mild to moderate bilateral foraminal narrowing is noted. L4-L5: Mild circumferential spinal stenosis is noted secondary to diffuse disc osteophyte complex, facet eduardo nt hypertrophy and ligamentous laxity. Mild to moderate bilateral foraminal narrowing is noted. L5-S1: Mild diffuse disc osteophyte complex is noted. Mild to moderate left neuroforaminal narrowing and mil d right neural foraminal narrowing are noted. Facet joint hypertrophy is noted bilaterally. CONCLUSION: 1. Mild spinal stenosis and mild to moderate bilateral narrowing at L2-3, L3-4 and L4-5. 2. Mild spinal stenosis and mild bilateral foraminal narrowing at L1-2. 3. Diffuse degenerative disease throughout the lumbar spine. 4. No evidence of enhancing abscess. Abilio Eastman MD on May 24, 2017 at 12:23 Board Certified Radiologist. This report was verified electronically.
--- NOTE | 2017-05-24 12:46 | RADRPT ---
EXAM DATE/TIME: 05/24/2017 09:12 [facility] COMPARISON: No previous studies available for comparison. INDICATIONS : Abscess. CONTRAST: 16 cc Omniscan (gadodiamide) IV MEDICAL HISTORY : IVDA. SURGICAL HISTORY : None. ENCOUNTER: Initial ACUITY: 1 day PAIN SCORE: 0/10 LOCATION: Paraspinal TECHNIQUE: Multiplanar multisequence MRI of the thoracic spine was performed. FINDINGS: VERTEBRA: Normal vertebral body height. Homogeneous marrow signal. ALIGNMENT: Normal. CORD: Normal position and configuration. POST CONTRAST: No abnormal areas of contrast enhancement seen. T1-T2: Normal. T2-T3: The thecal sac has a normal diameter. No evidence of disc bulge or protrusion. T3-T4: The thecal sac has a normal diameter. No evidence of disc bulge or protrusion. T4-T5: The thecal sac has a normal diameter. No evidence of disc bulge or protrusion. T5-T6: The thecal sac has a normal diameter. No evidence of disc bulge or protrusion. T6-T7: The thecal sac has a normal diameter. No evidence of disc bulge or protrusion. T7-T8: Minimal diffuse disc osteophyte complex is noted. No spinal stenosis or neural foraminal narrowing is noted T8-T9: Minimal diffuse disc osteophyte complex is noted. No spinal stenosis or neural foraminal narrowing is noted T9-T10: Minimal diffuse disc osteophyte complex is noted. No spinal stenosis or neural foraminal narrowing is noted T10-T11: The thecal sac has a normal diameter. No evidence of disc bulge or protrusion. T11-T12: The thecal sac has a normal diameter. No evidence of disc bulge or protrusion. T12-L1: The thecal sac has a normal diameter. No evidence of disc bulge or protrusion. CONCLUSION: 1. Minimal disc osteophyte complexes at T7-8, T8-9 and T9-10. 2. No spinal stenosis, focal disc herniation or significant neural foraminal narrowing. 3. No enhancing abscess collection. Abilio Eastman MD on May 24, 2017 at 12:39 Board Certified Radiologist. This report was verified electronically.
--- NOTE | 2017-05-24 12:47 | HHI.IDPN ---
Note Infectious Disease Note Patient is sedated. Moaning. Unable to get responses from him. Afebrile. Blood culture has MRSA. CSF culture no growth. Patient admitted to hospital with altered mental status. The patient was evaluated in the emergency department and he was complaining of lower back pain. The patient had positive, screen of the urine for cocaine. PAST MEDICAL HISTORY: 1. Past medical history of arthritis 2. Anxiety. 3. Substance abuse. ALLERGIES NO KNOWN DRUG ALLERGIES. MEDICATIONS 1. Vancomycin. 2. Ceftriaxone. Current Medications Medications (Trade) Dose Ordered Sig/Frandy Route PRN Reason Start Time Stop Time Status Last Admin Dose Admin Sodium Chloride (NS Flush) 2 ml UNSCH PRN IV FLUSH FLUSH AFTER USING IV ACCESS 05/22/17 06:15 Sodium Chloride (NS Flush) 2 ml BID IV FLUSH 05/22/17 09:00 05/24/17 08:23 Ondansetron HCl (Zofran Inj) 4 mg Q6H PRN IVP NAUSEA OR VOMITING 05/22/17 06:15 Acetaminophen (Tylenol) 650 mg Q6H PRN PO FEVER 05/22/17 06:15 Senna/Docusate Sodium (Sabrina-Colace) 1 tab BID PO 05/22/17 09:00 Magnesium Hydroxide (Milk Of Magnesia Liq) 30 ml Q12H PRN PO Mild constipation 05/22/17 06:15 Sennosides (Senokot) 17.2 mg Q12H PRN PO Moderate constipation 05/22/17 06:15 Bisacodyl (Dulcolax Supp) 10 mg DAILY PRN RECTAL SEVERE CONSITIPATION 05/22/17 06:15 Lactulose (Lactulose Liq) 30 ml DAILY PRN PO SEVERE CONSITIPATION 05/22/17 06:15 Flumazenil (Romazicon Inj) 0.2 mg Q1M PRN IV PUSH SEE LABEL COMMENTS 05/22/17 11:30 Lorazepam (Ativan) 1 mg Q4H PRN PO CIWA 8 - 10 05/22/17 11:30 Lorazepam (Ativan) 2 mg Q2H PRN PO CIWA 11-14 05/22/17 11:30 05/24/17 08:18 Dexmedetomidine HCl 200 mcg/ Sodium Chloride 52 ml @ 3.48 mls/hr TITRATE PRN IV SEDATION 05/22/17 11:30 05/24/17 09:46 Thiamine HCl 100 mg/Sodium Chloride 101 ml @ 101 mls/hr DAILY IV 05/22/17 13:00 05/24/17 08:23 Albuterol/ Ipratropium (Duoneb Neb) 1 ampule Q2HR NEB PRN NEB SOB/WHEEZING 05/22/17 12:00 Diltiazem HCl 125 mg/Sodium Chloride 125 ml @ 5 mls/hr TITRATE PRN IV Tachycardia 05/22/17 16:00 05/22/17 18:20 Pharmacy Profile Note 0 ml @ 0 mls/hr UNSCH OTHER 05/23/17 07:30 Ceftriaxone Sodium 2000 mg/ Sodium Chloride 100 ml @ 200 mls/hr Q12H IV 05/23/17 08:15 05/24/17 08:17 Vancomycin HCl 1250 mg/Sodium Chloride 262.5 ml @ 262.5 mls/ hr Q24H IV 05/24/17 09:00 05/24/17 08:23 Miscellaneous Information SPECIFIC LAB TO BE NARDA... ONCE ONCE .XX 05/25/17 08:45 05/25/17 08:46 Dextrose/Sodium Chloride 1,000 ml @ 125 mls/hr Q8H IV 05/23/17 08:45 05/24/17 05:11 Haloperidol Lactate (Haldol Inj) 5 mg Q4H PRN IV agitation 05/24/17 08:15 05/24/17 08:23 Potassium Chloride 100 ml @ 50 mls/hr Q2H PRN IV For Potassium 2.8 - 3.2 mEq/L 05/24/17 08:15 Potassium Chloride 100 ml @ 50 mls/hr Q2H PRN IV For Potassium 2.8 - 3.2 mEq/L 05/24/17 08:15 Potassium Bicarb/ Potassium Chloride (K-Lyte Cl Eff) 50 meq UNSCH PRN PO For Potassium 3.3 - 3.5 mEq/L 05/24/17 08:15 Potassium Chloride 100 ml @ 25 mls/hr UNSCH PRN IV For Potassium 3.3 - 3.5 mEq/L 05/24/17 08:15 Potassium Chloride 100 ml @ 50 mls/hr Q2H PRN IV For Potassium 3.3 - 3.5 mEq/L 05/24/17 08:15 Magnesium Sulfate 4 gm/Sodium Chloride 100 ml @ 50 mls/hr UNSCH PRN IV For Magnesium 0.9 - 1.1 mg/dL 05/24/17 08:15 Magnesium Oxide (Mag-Ox) 800 mg UNSCH PRN PO For Magnesium 1.2 - 1.6 mg/dL 05/24/17 08:15 Magnesium Sulfate 2 gm/Sodium Chloride 100 ml @ 50 mls/hr UNSCH PRN IV For Magnesium 1.2 - 1.6 mg/dL 05/24/17 08:15 Potassium Phosphate (K-Phos) 2,000 mg Q4H PRN PO For Phosphorus < 2.5 mg/dL 05/24/17 08:15 Sodium Phosphate 30 mmol/Sodium Chloride 250 ml @ 42 mls/hr UNSCH PRN IV For Phosphorus < 2.5 mg/dL 05/24/17 08:15 Potassium Phosphate (K-Phos) 2,000 mg UNSCH PRN PO/TUBE SEE LABEL COMMENTS 05/24/17 08:15 Potassium Phosphate 30 mmol/ Sodium Chloride 260 ml @ 42 mls/hr UNSCH PRN IV SEE LABEL COMMENTS 05/24/17 08:15 OBJECTIVE: Vital Signs Date Time Temp Pulse Resp B/P (MAP) Pulse Ox O2 Delivery O2 Flow Rate FiO2 05/24/17 08:06 95 Nasal Cannula 2.00 05/24/17 08:00 98.5 98 32 148/90 (109) 99 05/24/17 07:00 98 Nasal Cannula 2.00 05/24/17 04:00 99.9 99 21 162/93 (116) 93 05/24/17 00:00 99.7 89 25 147/86 (106) 93 05/23/17 20:39 95 Nasal Cannula 2.00 05/23/17 20:00 100.0 86 19 167/96 (119) 97 05/23/17 20:00 98 Nasal Cannula 2.00 05/23/17 16:00 99.3 78 26 156/85 (108) 96 Laboratory Tests Test 05/23/17 05:45 05/24/17 05:39 White Blood Count 11.4 TH/MM3 10.9 TH/MM3 Red Blood Count 3.55 MIL/MM3 3.59 MIL/MM3 Hemoglobin 11.4 GM/DL 11.7 GM/DL Hematocrit 34.6 % 34.4 % Mean Corpuscular Volume 97.5 FL 95.9 FL Mean Corpuscular Hemoglobin 32.0 PG 32.7 PG Mean Corpuscular Hemoglobin Concent 32.8 % 34.1 % Red Cell Distribution Width 14.0 % 13.9 % Platelet Count 112 TH/MM3 84 TH/MM3 Mean Platelet Volume 9.4 FL 9.1 FL CBC Comment AUTO DIFF AUTO DIFF Differential Total Cells Counted 100 100 Neutrophils % (Manual) 58 % 73 % Band Neutrophils % 27 % 19 % Lymphocytes % 5 % 4 % Monocytes % 6 % 4 % Neutrophils # (Manual) 10.1 TH/MM3 10.0 TH/MM3 Metamyelocytes 4 % Differential Comment FINAL DIFF MANUAL FINAL DIFF MANUAL Atypical Lymphocytes % Toxic Granulation 1+ 1+ Toxic Vacuolation PRESENT PRESENT Platelet Estimate LOW LOW Platelet Morphology Comment NORMAL NORMAL Neutrophils (%) (Auto) 82.7 % Lymphocytes (%) (Auto) 4.9 % Monocytes (%) (Auto) 11.4 % Eosinophils (%) (Auto) 0.8 % Basophils (%) (Auto) 0.2 % Neutrophils # (Auto) 9.0 TH/MM3 Lymphocytes # (Auto) 0.5 TH/MM3 Monocytes # (Auto) 1.2 TH/MM3 Eosinophils # (Auto) 0.1 TH/MM3 Basophils # (Auto) 0.0 TH/MM3 Laboratory Tests Test 05/22/17 12:40 05/22/17 14:30 05/22/17 17:25 05/23/17 00:16 Total Creatine Kinase 884 U/L 833 U/L 809 U/L Creatine Kinase MB 9.0 NG/ML 10.0 NG/ML 13.1 NG/ML Creatine Kinase MB % 1.0 % 1.2 % 1.6 % Troponin I 0.06 NG/ML 0.08 NG/ML 0.07 NG/ML C-Reactive Protein 26.00 MG/DL Ammonia LESS THAN 10 MCMOL/L Test 05/23/17 05:45 05/23/17 10:15 05/24/17 05:39 Blood Urea Nitrogen 40 MG/DL 25 MG/DL Creatinine 1.41 MG/DL 0.86 MG/DL Random Glucose 48 MG/DL 112 MG/DL Total Protein 5.7 GM/DL 5.3 GM/DL Albumin 2.2 GM/DL 1.9 GM/DL Calcium Level 7.0 MG/DL 7.4 MG/DL Magnesium Level 1.8 MG/DL 1.9 MG/DL Alkaline Phosphatase 54 U/L 48 U/L Aspartate Amino Transf (AST/SGOT) 122 U/L 76 U/L Alanine Aminotransferase (ALT/SGPT) 62 U/L 54 U/L Total Bilirubin 1.1 MG/DL 0.9 MG/DL Sodium Level 140 MEQ/L 144 MEQ/L Potassium Level 4.2 MEQ/L 2.8 MEQ/L Chloride Level 112 MEQ/L 115 MEQ/L Carbon Dioxide Level 14.9 MEQ/L 18.1 MEQ/L Anion Gap 13 MEQ/L 11 MEQ/L Estimat Glomerular Filtration Rate 50 ML/MIN 88 ML/MIN Protein Corrected Calcium 7.7 MG/DL 8.4 MG/DL Lactic Acid Level 1.4 mmol/L Phosphorus Level 0.7 MG/DL Microbiology Date/Time Source Procedure Growth Status 05/22/17 04:50 Blood Peripheral Aerobic Blood Culture - Final S. Aureus Mrsa Complete 05/22/17 04:50 Anaerobic Blood Culture - Final S. Aureus Mrsa Complete 05/22/17 04:45 Blood Peripheral Aerobic Blood Culture - Final S. Aureus Mrsa Complete 05/22/17 04:45 Anaerobic Blood Culture - Final S. Aureus Mrsa Complete 05/23/17 09:00 Cerebral Spinal Fluid Lumbar Puncture Fungal Smear - Final NO FUNGAL ELEMENTS SEEN. Resulted 05/23/17 09:00 Cerebral Spinal Fluid Lumbar Puncture Fungal Culture Pending Resulted 05/23/17 09:00 Cerebral Spinal Fluid Lumbar Puncture Acid Fast Stain Pending Received 05/23/17 09:00 Cerebral Spinal Fluid Lumbar Puncture Mycobacterial Culture Pending Received 05/23/17 09:00 Cerebral Spinal Fluid Lumbar Puncture Gram Stain - Final Resulted 05/23/17 09:00 Cerebral Spinal Fluid Lumbar Puncture CSF Culture - Preliminary NO GROWTH IN 24 HOURS. Resulted IMAGING: Head CT 05/22/17442 Signed Impressions: Service Date/Time: Monday, May 22, 2017 05:16 - CONCLUSION: No acute intracranial findings. Scott Morfin MD Chest X-Ray 05/22/17442 Signed Impressions: Service Date/Time: Monday, May 22, 2017 05:23 - CONCLUSION: No acute cardiopulmonary disease identified. Scott Morfin MD PHYSICAL EXAM. HEAD, EYES, EARS, NOSE, AND THROAT: The head is atraumatic. Extraocular movements cannot be fully assessed. No icterus. No conjunctival erythema. The oropharynx moist mucosa without lesions. NECK: No swelling. No adenopathy. LUNGS: Clear breath sounds. HEART: Regular S1-S2. No audible murmurs or rubs or gallops. ABDOMEN: Bowel sounds present, soft, unable to appreciate tenderness. No masses. GENITOURINARY: Normal genitalia. EXTREMITIES: No clubbing or cyanosis. Both hands with edema at the dorsum of the hands. There is mild erythema at the dorsum of the right hand. No splinter hemorrhages at the nail beds. No calf tenderness appreciated. No palpable cords. SKIN: No diffuse rashes. NEUROLOGIC: Unable to assess. PSYCHIATRIC: Psych unable to assess. IMPRESSION 1. Abnormal cerebrospinal fluid suggesting meningitis and very likely bacterial meningitis. 2. Bacteremia MRSA. Unclear etiology. ? related to the back pain. 3. The patient presented with altered mental status and back pain. 4. Positive toxicology screen for cocaine. RECOMMENDATIONS 1. Continue ceftriaxone for meningitis coverage. 2. Continue Vancomycin. 3. Monitor the cerebrospinal fluid cultures. 4. Follow MRI. 5. Repeat blood cultures in am. 6. Monitor clinical response to the treatment. Giovanni Hernandez MD May 24, 2017 12:47
--- NOTE | 2017-05-24 13:01 | RADRPT ---
EXAM DATE/TIME: 05/24/2017 09:12 [facility] COMPARISON: No previous studies available for comparison. INDICATIONS : Abscess. CONTRAST: 16 cc Omniscan (gadodiamide) IV MEDICAL HISTORY : IVDA. SURGICAL HISTORY : None. ENCOUNTER: Initial ACUITY: 1 day PAIN SCORE: 0/10 LOCATION: [facility] TECHNIQUE: Multiplanar, multisequence MRI examination of the cervical spine was performed. FINDINGS: Cervical spondylosis is noted at C3-4, C4-5, C5-6 and C6-7. Facet joint hypertrophy is noted bilatera lly at C5-6 and C6-7. There is no acute compression fracture or prevertebral soft tissue swelling. Th e cervical spinal cord is normal signal intensity and morphology. The craniocervical junction is norm al. Mild bilateral foraminal narrowing is noted at C3-4, C4-5, C5-6 and C6-7. Reversal of the normal cervical lordosis is noted. No enhancing abscess collection is noted. C2-C3: The thecal sac has a normal configuration. There is no evidence of disc herniation or spinal canal stenosis. The neural foramina are patent bilaterally. C3-C4: Mild foraminal narrowing is noted secondary to minimal diffuse disc osteophyte complex and uncoverteb ral joint spurring bilaterally. No focal disc herniation is noted. C4-C5: Mild foraminal narrowing is noted secondary to minimal diffuse disc osteophyte complex and uncoverteb ral joint spurring bilaterally. No focal disc herniation is noted. C5-C6: Mild foraminal narrowing is noted secondary to minimal diffuse disc osteophyte complex and uncoverteb ral joint spurring bilaterally. Mild bilateral facet joint hypertrophy is noted. No focal disc hernia tion is noted. C6-C7: Mild foraminal narrowing is noted secondary to minimal diffuse disc osteophyte complex and uncoverteb ral joint spurring bilaterally. Mild bilateral facet joint hypertrophy is noted. No focal disc hernia tion is noted. C7-T1: The thecal sac has a normal configuration. There is no evidence of disc herniation or spinal canal s tenosis. The neural foramina are patent bilaterally. CONCLUSION: 1. Mild bilateral foraminal narrowing at C3-4, C4-5, C5-6 and C6-7. 2. No enhancing abscess. 3. Reversal of the normal cervical lordosis. 4. Diffuse cervical spondylosis from C3-C7. Abilio Eastman MD on May 24, 2017 at 12:52 Board Certified Radiologist. This report was verified electronically.
[2017-05-24] MEDS: RESP: ALBUTEROL 2.5 MG/IPRATROPIUM 0.5 MG NEB (SCH) NEB ×2 (14:01→21:39)
[2017-05-24] MEDS: POTASSIUM CHLOR 20 MEQ PREMIX 100 ML IV PRN ×4 (14:04→18:08)
[2017-05-24] MEDS: POTASSIUM PHOSPHATE INJ 30 MMOL in SODIUM CHLOR 0.9% 250 ML INJ 250 ML IV PRN (15:17)
--- NOTE | 2017-05-24 15:44 | ECHRPT ---
Indication: CONCLUSIONS Normal left ventricular size and wall thickness. The left ventricular systolic function is normal wi th an estimated ejection fraction of 55%. No definite wall motion abnormalities. Trace mitral valve regurgitation. There is mild tricuspid valve regurgitation. The estimated pulmonary arterial pressure is 33 mmHg. BP: / HR: Rhythm: MEASUREMENTS (Male / Female) Normal Values Technical Quality:Fair 2D ECHO LV Diastolic Diameter PLAX 4.2 cm 4.2 - 5.9 / 3.9 - 5.3 cm LV Systolic Diameter PLAX 3.6 cm IVS Diastolic Thickness 1.1 cm 0.6 - 1.0 / 0.6 - 0.9 cm LVPW Diastolic Thickness 1.0 cm 0.6 - 1.0 / 0.6 - 0.9 cm LV Relative Wall Thickness 0.5 RV Internal Dim ED PLAX 3.0 cm M-MODE Aortic Root Diameter MM 3.6 cm LA Systolic Diameter MM 4.4 cm LA Ao Ratio MM 1.2 AV Cusp Separation MM 1.8 cm DOPPLER Mitral E Point Velocity 60.7 cm/s Mitral A Point Velocity 57.3 cm/s Mitral E to A Ratio 1.1 LV E' Lateral Velocity 10.4 cm/s Mitral E to LV E' Lateral Ratio 5.8 LV E' Septal Velocity 7.4 cm/s Mitral E to LV E' Septal Ratio 8.2 TR Peak Velocity 244.0 cm/s TR Peak Gradient 23.8 mmHg Right Atrial Pressure 10.0 mmHg Pulmonary Artery Systolic Pressu 33.8 mmHg Right Ventricular Systolic Press 33.8 mmHg FINDINGS LEFT VENTRICLE Normal left ventricular size and wall thickness. The left ventricular systolic function is normal wi th an estimated ejection fraction of 55%. No definite wall motion abnormalities. RIGHT VENTRICLE Normal right ventricular size and systolic function. LEFT ATRIUM The left atrial size is normal. RIGHT ATRIUM The right atrial size is normal. ATRIAL SEPTUM Normal atrial septal thickness without atrial level shunting by limited color doppler interrogation. AORTA The aortic root and proximal ascending aorta are normal in size on limited imaging. MITRAL VALVE Structurally normal mitral valve. Trace mitral valve regurgitation. AORTIC VALVE Trileaflet aortic valve. No aortic valve regurgitation. No aortic valve stenosis. TRICUSPID VALVE Structurally normal tricuspid valve. There is mild tricuspid valve regurgitation. The estimated pulmonary arterial pressure is 33 mmHg. PULMONARY VALVE No pulmonary valve regurgitation or stenosis. VESSELS The inferior vena cava is normal in size. PERICARDIUM No pericardial effusion. Richard Zafar MD (Electronically Signed) Final Date:24 May 2017 15:43
[2017-05-24] MEDS: DEXMEDETOMIDINE INJ 400 MCG in SODIUM CHLORIDE 0.9% INJ 96 ML IV PRN (22:46)
[2017-05-25] VITALS (9 sets, daily range): BP systolic 126–197; BP diastolic 80–109; PULSE 71–126; RESP 20–28; TEMP 97.5–100; O2SAT 93–100
[2017-05-25] MEDS: LORazepam 2 MG TAB PO PRN ×2 (02:48→19:19)
[2017-05-25] MEDS: HALOPERIDOL LACTATE 5 MG/ML AMP IV PRN ×4 (02:48→23:08)
[2017-05-25] MEDS: DEXMEDETOMIDINE INJ 400 MCG in SODIUM CHLORIDE 0.9% INJ 96 ML IV PRN ×2 (03:33→11:29)
[2017-05-25] MEDS: RESP: ALBUTEROL 2.5 MG/IPRATROPIUM 0.5 MG NEB (SCH) NEB ×4 (04:00→21:25)
[2017-05-25] MEDS ORDERED: PHARMACY ORDERED LAB ONE ×2 (05:45→08:45)
[2017-05-25 07:29] LABS: AUTOMATED NEUTROPHIL # 10.3 TH/MM3 (1.8-7.7); BASOPHIL % 0.3 % (0.0-2.0); EOSINOPHIL # 0.2 TH/MM3 (0-0.4); EOSINOPHIL % 1.4 % (0.0-4.0); HEMATOCRIT 33.9 % (39.0-51.0); HEMOGLOBIN 11.4 GM/DL (13.0-17.0); LYMPH % 6.5 % (9.0-44.0); LYMPHOCYTE # 0.9 TH/MM3 (1.0-4.8); MEAN CORPUSCULAR HEMOGLOBIN 31.6 PG (27.0-34.0); MEAN CORPUSCULAR HGB CONC 33.6 % (32.0-36.0); MEAN PLATELET VOLUME 8.6 FL (7.0-11.0); MONO % 12.8 % (0.0-8.0); MONOCYTE # 1.7 TH/MM3 (0-0.9); PLATELET COUNT 84 TH/MM3 (150-450); RED BLOOD COUNT 3.61 MIL/MM3 (4.50-5.90); RED CELL DISTRIBUTION WIDTH 14.3 % (11.6-17.2); WHITE BLOOD COUNT 13.1 TH/MM3 (4.0-11.0)
[2017-05-25 07:41] LABS: BICARBONATE 24.1 MEQ/L (21.0-32.0); CALCIUM 7.8 MG/DL (8.5-10.1); CREATININE 0.79 MG/DL (0.60-1.30)
[2017-05-25] MEDS: POTASSIUM CHLOR 20 MEQ PREMIX 100 ML IV PRN (08:00)
[2017-05-25 08:02] LABS: BANDS 4 % (0-6); LYMPHOCYTES 7 % (9-44); METAMYELOCYTES 1 % (0-1); MONOCYTES 11 % (0-8); MYELOCYTES 1 % (0-0); NEUTROPHIL # MANUAL DIFF 10.7 TH/MM3 (1.8-7.7); POLYS (SEG NEUTROPHILS) 76 % (16-70)
[2017-05-25] MEDS: SODIUM CHLORIDE 0.9% FLUSH 10 ML FLUSH IV FLUSH SCH ×2 (09:00→21:00)
[2017-05-25] MEDS: VANCOMYCIN INJ 1,250 MG in SODIUM CHLOR 0.9% 250 ML INJ 250 ML IV SCH (09:51)
[2017-05-25] MEDS: THIAMINE INJ 100 MG in SODIUM CHLORIDE 0.9% INJ 100 ML IV SCH (09:51)
[2017-05-25] MEDS: DOCUSATE SODIUM 50 MG/SENNA 8.6 MG TAB PO SCH ×2 (09:51→21:00)
[2017-05-25] MEDS: cefTRIAXone INJ 2,000 MG in SODIUM CHLORIDE 0.9% INJ 100 ML IV SCH ×2 (09:51→19:20)
--- NOTE | 2017-05-25 11:13 | HHI.IDPN ---
Note Infectious Disease Note Patient is somnolent. Awakened to tactile stimuli. Confused. Asking "where did it happen" and swearing briefly then drifts back to sleep. Afebrile. CSF culture no growth. Patient admitted to hospital with altered mental status. The patient was evaluated in the emergency department and he was complaining of lower back pain. The patient had positive, screen of the urine for cocaine. PAST MEDICAL HISTORY: 1. Arthritis 2. Anxiety. 3. Substance abuse. ALLERGIES NO KNOWN DRUG ALLERGIES. MEDICATIONS 1. Vancomycin. 2. Ceftriaxone. Current Medications Medications (Trade) Dose Ordered Sig/Frandy Route PRN Reason Start Time Stop Time Status Last Admin Dose Admin Sodium Chloride (NS Flush) 2 ml UNSCH PRN IV FLUSH FLUSH AFTER USING IV ACCESS 05/22/17 06:15 Sodium Chloride (NS Flush) 2 ml BID IV FLUSH 05/22/17 09:00 05/25/17 09:00 Ondansetron HCl (Zofran Inj) 4 mg Q6H PRN IVP NAUSEA OR VOMITING 05/22/17 06:15 Acetaminophen (Tylenol) 650 mg Q6H PRN PO FEVER 05/22/17 06:15 Senna/Docusate Sodium (Sabrina-Colace) 1 tab BID PO 05/22/17 09:00 Magnesium Hydroxide (Milk Of Magnesia Liq) 30 ml Q12H PRN PO Mild constipation 05/22/17 06:15 Sennosides (Senokot) 17.2 mg Q12H PRN PO Moderate constipation 05/22/17 06:15 Bisacodyl (Dulcolax Supp) 10 mg DAILY PRN RECTAL SEVERE CONSITIPATION 05/22/17 06:15 Lactulose (Lactulose Liq) 30 ml DAILY PRN PO SEVERE CONSITIPATION 05/22/17 06:15 Flumazenil (Romazicon Inj) 0.2 mg Q1M PRN IV PUSH SEE LABEL COMMENTS 05/22/17 11:30 Lorazepam (Ativan) 1 mg Q4H PRN PO CIWA 8 - 10 05/22/17 11:30 Lorazepam (Ativan) 2 mg Q2H PRN PO CIWA 11-14 05/22/17 11:30 05/25/17 02:48 Thiamine HCl 100 mg/Sodium Chloride 101 ml @ 101 mls/hr DAILY IV 05/22/17 13:00 12/18/17 09:51 Albuterol/ Ipratropium (Duoneb Neb) 1 ampule Q2HR NEB PRN NEB SOB/WHEEZING 05/22/17 12:00 Diltiazem HCl 125 mg/Sodium Chloride 125 ml @ 5 mls/hr TITRATE PRN IV Tachycardia 05/22/17 16:00 05/22/17 18:20 Pharmacy Profile Note 0 ml @ 0 mls/hr UNSCH OTHER 05/23/17 07:30 Ceftriaxone Sodium 2000 mg/ Sodium Chloride 100 ml @ 200 mls/hr Q12H IV 05/23/17 08:15 05/25/17 09:51 Vancomycin HCl 1250 mg/Sodium Chloride 262.5 ml @ 262.5 mls/ hr Q24H IV 05/24/17 09:00 05/25/17 09:51 Dextrose/Sodium Chloride 1,000 ml @ 125 mls/hr Q8H IV 05/23/17 08:45 05/24/17 16:35 Haloperidol Lactate (Haldol Inj) 5 mg Q4H PRN IV agitation 05/24/17 08:15 05/25/17 02:48 Potassium Chloride 100 ml @ 50 mls/hr Q2H PRN IV For Potassium 2.8 - 3.2 mEq/L 05/24/17 08:15 Potassium Chloride 100 ml @ 50 mls/hr Q2H PRN IV For Potassium 2.8 - 3.2 mEq/L 05/24/17 08:15 05/24/17 18:08 Potassium Bicarb/ Potassium Chloride (K-Lyte Cl Eff) 50 meq UNSCH PRN PO For Potassium 3.3 - 3.5 mEq/L 05/24/17 08:15 Potassium Chloride 100 ml @ 25 mls/hr UNSCH PRN IV For Potassium 3.3 - 3.5 mEq/L 05/24/17 08:15 Potassium Chloride 100 ml @ 50 mls/hr Q2H PRN IV For Potassium 3.3 - 3.5 mEq/L 05/24/17 08:15 Magnesium Sulfate 4 gm/Sodium Chloride 100 ml @ 50 mls/hr UNSCH PRN IV For Magnesium 0.9 - 1.1 mg/dL 05/24/17 08:15 Magnesium Oxide (Mag-Ox) 800 mg UNSCH PRN PO For Magnesium 1.2 - 1.6 mg/dL 05/24/17 08:15 Magnesium Sulfate 2 gm/Sodium Chloride 100 ml @ 50 mls/hr UNSCH PRN IV For Magnesium 1.2 - 1.6 mg/dL 05/24/17 08:15 Potassium Phosphate (K-Phos) 2,000 mg Q4H PRN PO For Phosphorus < 2.5 mg/dL 05/24/17 08:15 Sodium Phosphate 30 mmol/Sodium Chloride 250 ml @ 42 mls/hr UNSCH PRN IV For Phosphorus < 2.5 mg/dL 05/24/17 08:15 Potassium Phosphate (K-Phos) 2,000 mg UNSCH PRN PO/TUBE SEE LABEL COMMENTS 05/24/17 08:15 Potassium Phosphate 30 mmol/ Sodium Chloride 260 ml @ 42 mls/hr UNSCH PRN IV SEE LABEL COMMENTS 05/24/17 08:15 05/24/17 15:17 Albuterol/ Ipratropium (Duoneb Neb) 1 ampule Q6HR NEB NEB 05/24/17 16:00 05/25/17 10:26 Dexmedetomidine HCl 400 mcg/ Sodium Chloride 100 ml @ 3.35 mls/hr TITRATE PRN IV SEDATION 05/24/17 22:30 05/25/17 03:33 OBJECTIVE: Vital Signs Date Time Temp Pulse Resp B/P (MAP) Pulse Ox O2 Delivery O2 Flow Rate FiO2 05/25/17 10:27 100 Nasal Cannula 4.00 05/25/17 04:00 98.9 93 27 139/84 (102) 95 05/25/17 00:00 100.0 103 28 148/96 (113) 93 05/24/17 21:39 95 Nasal Cannula 2.00 05/24/17 20:00 99.7 92 25 161/92 (115) 97 05/24/17 20:00 98 Nasal Cannula 2.00 05/24/17 16:00 98.1 78 21 114/72 (86) 99 05/24/17 12:00 99.3 74 21 119/69 (86) 99 Laboratory Tests Test 05/24/17 05:39 05/25/17 07:19 White Blood Count 10.9 TH/MM3 13.1 TH/MM3 Red Blood Count 3.59 MIL/MM3 3.61 MIL/MM3 Hemoglobin 11.7 GM/DL 11.4 GM/DL Hematocrit 34.4 % 33.9 % Mean Corpuscular Volume 95.9 FL 94.0 FL Mean Corpuscular Hemoglobin 32.7 PG 31.6 PG Mean Corpuscular Hemoglobin Concent 34.1 % 33.6 % Red Cell Distribution Width 13.9 % 14.3 % Platelet Count 84 TH/MM3 84 TH/MM3 Mean Platelet Volume 9.1 FL 8.6 FL Neutrophils (%) (Auto) 82.7 % 79.0 % Lymphocytes (%) (Auto) 4.9 % 6.5 % Monocytes (%) (Auto) 11.4 % 12.8 % Eosinophils (%) (Auto) 0.8 % 1.4 % Basophils (%) (Auto) 0.2 % 0.3 % Neutrophils # (Auto) 9.0 TH/MM3 10.3 TH/MM3 Lymphocytes # (Auto) 0.5 TH/MM3 0.9 TH/MM3 Monocytes # (Auto) 1.2 TH/MM3 1.7 TH/MM3 Eosinophils # (Auto) 0.1 TH/MM3 0.2 TH/MM3 Basophils # (Auto) 0.0 TH/MM3 0.0 TH/MM3 CBC Comment AUTO DIFF AUTO DIFF Differential Total Cells Counted 100 100 Neutrophils % (Manual) 73 % 76 % Band Neutrophils % 19 % 4 % Lymphocytes % 4 % 7 % Monocytes % 4 % 11 % Neutrophils # (Manual) 10.0 TH/MM3 10.7 TH/MM3 Differential Comment FINAL DIFF MANUAL FINAL DIFF MANUAL Toxic Granulation 1+ Toxic Vacuolation PRESENT Platelet Estimate LOW LOW Platelet Morphology Comment NORMAL NORMAL Metamyelocytes 1 % Myelocytes 1 % Red Cell Morphology Comment NORMAL Laboratory Tests Test 05/24/17 05:39 05/24/17 13:00 05/25/17 07:19 Blood Urea Nitrogen 25 MG/DL 17 MG/DL Creatinine 0.86 MG/DL 0.79 MG/DL Random Glucose 112 MG/DL 119 MG/DL Total Protein 5.3 GM/DL Albumin 1.9 GM/DL Calcium Level 7.4 MG/DL 7.8 MG/DL Phosphorus Level 0.7 MG/DL 1.1 MG/DL Magnesium Level 1.9 MG/DL Alkaline Phosphatase 48 U/L Aspartate Amino Transf (AST/SGOT) 76 U/L Alanine Aminotransferase (ALT/SGPT) 54 U/L Total Bilirubin 0.9 MG/DL Sodium Level 144 MEQ/L 146 MEQ/L Potassium Level 2.8 MEQ/L 3.2 MEQ/L Chloride Level 115 MEQ/L 115 MEQ/L Carbon Dioxide Level 18.1 MEQ/L 24.1 MEQ/L Anion Gap 11 MEQ/L 7 MEQ/L Estimat Glomerular Filtration Rate 88 ML/MIN 98 ML/MIN Protein Corrected Calcium 8.4 MG/DL Microbiology Date/Time Source Procedure Growth Status 05/25/17 05:25 Blood Peripheral Aerobic Blood Culture Pending Received 05/25/17 05:25 Blood Peripheral Anaerobic Blood Culture Pending Received 05/25/17 05:15 Blood Peripheral Aerobic Blood Culture Pending Received 05/25/17 05:15 Blood Peripheral Anaerobic Blood Culture Pending Received 05/23/17 09:00 Cerebral Spinal Fluid Lumbar Puncture Fungal Smear - Final NO FUNGAL ELEMENTS SEEN. Resulted 05/23/17 09:00 Cerebral Spinal Fluid Lumbar Puncture Fungal Culture Pending Resulted 05/23/17 09:00 Cerebral Spinal Fluid Lumbar Puncture Acid Fast Stain - Final NO ACID FAST BACILLI SEEN Resulted 05/23/17 09:00 Cerebral Spinal Fluid Lumbar Puncture Mycobacterial Culture Pending Resulted 05/23/17 09:00 Cerebral Spinal Fluid Lumbar Puncture Gram Stain - Final Resulted 05/23/17 09:00 Cerebral Spinal Fluid Lumbar Puncture CSF Culture - Preliminary NO GROWTH IN 48 HOURS. Resulted IMAGING: Last 72 hours Impressions Thoracic Spine MRI 05/24/17 0000 Signed Impressions: Service Date/Time: Wednesday, May 24, 2017 09:12 - CONCLUSION: 1. Minimal disc osteophyte complexes at T7-8, T8-9 and T9-10. 2. No spinal stenosis, focal disc herniation or significant neural foraminal narrowing. 3. No enhancing abscess collection. Abilio Eastman MD Lumbar Spine MRI 05/24/17 0000 Signed Impressions: Service Date/Time: Wednesday, May 24, 2017 09:12 - CONCLUSION: 1. Mild spinal stenosis and mild to moderate bilateral narrowing at L2-3, L3-4 and L4- 5. 2. Mild spinal stenosis and mild bilateral foraminal narrowing at L1-2. 3. Diffuse degenerative disease throughout the lumbar spine. 4. No evidence of enhancing abscess. Abilio Eastman MD Cervical Spine MRI 05/24/17 0000 Signed Impressions: Service Date/Time: Wednesday, May 24, 2017 09:12 - CONCLUSION: 1. Mild bilateral foraminal narrowing at C3-4, C4-5, C5-6 and C6-7. 2. No enhancing abscess. 3. Reversal of the normal cervical lordosis. 4. Diffuse cervical spondylosis from C3-C7. Abilio Eastman MD Brain MRI 05/24/17 0000 Signed Impressions: Service Date/Time: Wednesday, May 24, 2017 09:12 - CONCLUSION: 1. Mild periventricular white matter small vessel ischemic changes are noted bilaterally. 2. No acute infarct, acute hemorrhage, mass effect or extra- axial fluid collections. 3. No abnormal enhancing mass lesion. Abilio Eastman MD Head CT 05/22/17 0443 Signed Impressions: Service Date/Time: Monday, May 22, 2017 05:16 - CONCLUSION: No acute intracranial findings. Scott Morfin MD Chest X-Ray 05/22/17 0443 Signed Impressions: Service Date/Time: Monday, May 22, 2017 05:23 - CONCLUSION: No acute cardiopulmonary disease identified. Scott Morfin MD PHYSICAL EXAM. GENERAL: On nasal O2. No distress. HEAD, EYES, EARS, NOSE, AND THROAT: The head is atraumatic. No icterus. No conjunctival erythema. The oropharynx moist mucosa without lesions. NECK: No swelling. No adenopathy. LUNGS: Clear breath sounds. HEART: Regular S1-S2. No audible murmurs or rubs or gallops. ABDOMEN: Bowel sounds present, soft, unable to appreciate tenderness. No masses. GENITOURINARY: Normal genitalia. EXTREMITIES: No clubbing or cyanosis. Both hands with edema at the dorsum of the hands. There is mild erythema at the dorsum of the right hand. No splinter hemorrhages at the nail beds. No calf tenderness appreciated. No palpable cords. SKIN: No diffuse rash. NEUROLOGIC: Unable to assess. PSYCHIATRIC: Psych unable to assess. IMPRESSION 1. Abnormal cerebrospinal fluid suggesting meningitis and very likely bacterial meningitis. CSF culture has no growth. 2. Bacteremia MRSA. Unclear etiology. ? related to the back pain. MRI without spinal abscess. 3. Positive toxicology screen for cocaine. RECOMMENDATIONS 1. Continue ceftriaxone.. 2. Continue Vancomycin. 3. Monitor the cerebrospinal fluid cultures. 4. Repeat blood cultures in am. 5. Monitor clinical response to the treatment. Giovanni Hernandez MD May 25, 2017 11:13
[2017-05-25] MEDS: DEXT 5%-NACL 0.9% 1000 ML INJ 1,000 ML IV SCH (11:58)
[2017-05-25 12:15] LABS: HEPATITIS A AB IGM NEGATIVE (NEGATIVE); HEPATITIS B CORE AB IGM NEGATIVE (NEGATIVE); HEPATITIS B SURFACE ANTIGEN NEGATIVE (NEGATIVE); HEPATITIS C AB IgG REACTIVE (NEGATIVE)
[2017-05-25] MEDS ORDERED: MIDAZOLAM HCL 5 MG/5 ML VIAL IV PUSH ONE (12:30)
--- NOTE | 2017-05-25 12:40 | HHI.CCPN ---
Subjective Remarks/Hospital Course Patient is a 66-year-old male with history of anxiety, arthritis, substance abuse who was initially admitted to hospitalist service with altered mentation, and back pain. Found to have UDS positive for cocaine. In the ED patient was anxious and combative. Initially admitted to the medical floor. WBC 14.2 with bandemia, lactic acid 3.4, BUN/abdomen 27/1.49. Patient was given IV fluids, started on Cefepime and vanc but he continued to become more combative restless and altered. Patient was moved to the ICU and I immediately evaluated him. Patient is in four point restraints. He was unable to communicate, very agitated. Heart rate is in 160s rhythm appears to be A. fib with RVR. Patient was given 2 mg IV morphine and 2 mg IV Versed. He still intermittently agitated and started him on Precedex infusion. Patient is intermittently apneic but wakes up to painful stimuli. Because of severe agitation and drug withdrawal I am unable to get any additional history 05/23/17: Patient remains confused but intermittently oriented to person and somewhat place. Continues to repeat same words (Echolalia). Blood cultures GPC 3/4 bottles. Echo pending, also will proceed with LP. Change Cefepime to Rocephin, Add ampicillin 05/24/17: Continues to be septic encephalopathy. Blood cultures growing MRSA. Echo pending, but circled limited I did not see any vegetation. LP findings consistent with bacterial meningitis 05/25/17: Remains critically ill but stable. Encephalopathy slowly improving, on weaning doses of Precedex. Afib with RVR, re start Cardizem. LEXIE today to rule out endocarditis. Objective Vital Signs Date Time Temp Pulse Resp B/P (MAP) Pulse Ox O2 Delivery O2 Flow Rate FiO2 05/25/17 10:27 100 Nasal Cannula 4.00 05/25/17 04:00 98.9 93 27 139/84 (102) Intake and Output 05/25/17 05/25/17 05/26/17 08:00 16:00 00:00 Intake Total 100 ml Output Total 1000 ml Balance -900 ml Result Diagram: 05/25/1771805/25/[address] of the head, chest x-ray negative for acute findings Objective Remarks GENERAL: This is a well-nourished, well-developed patient, sedated with precedex SKIN: No rashes. Cool and dry. HEAD: Atraumatic. Normocephalic. No temporal or scalp tenderness. EYES: Pupils equal round and reactive. ENT: Airway patent. NECK: Trachea midline. No JVD or lymphadenopathy. Supple No neck stiffness CARDIOVASCULAR: Atrial fibrillation with rapid ventricular response. RESPIRATORY: Clear to auscultation. Breath sounds equal bilaterally. GASTROINTESTINAL: Abdomen soft, non-tender, nondistended. MUSCULOSKELETAL: Extremities without clubbing, cyanosis, or edema. NEUROLOGICAL: Patient is restrained, sedated with Precedex. Moves all extremities spontaneously, intermittently following commands Urinary Catheter: Yes Assessment to: Continue A/P Assessment and Plan ASSESSMENT: Bacterial meningitis MRSA bacteremia Severe sepsis Substance abuse with severe withdrawal Severe encephalopathy R/o infective endocarditis Atrial fibrillation with RVR Acute kidney injury Lactic acidosis Acute rhabdomyolysis UDS positive for cocaine PLAN: NEURO: - Delirium and encephalopathy secondary to severe sepsis and drug withdrawal, slowly improving - Urine drug screen positive for cocaine, history of IV opiate abuse - Use Precedex for sedation and withdrawal symptoms, PRN Versed for procedures, - Wean to DC Precedex after LEXIE - CIWA protocol. Continue thiamine - MRI brain no acute finding. MRI spine no evidence of abscess RESP: - Nasal cannula oxygen - Aggressive pulmonary toilet - DuoNeb every 6 hours when necessary CV: - Normal saline IV fluids s/p 3L bolus and 100 ml per hour - Trend lactic acid, now normalized - Currently atrial fibrillation with RVR. Restart Cardizem infusion - Atrial fibrillation is most likely from drug withdrawal will not anticoagulate at this time. s/p LP - 2-D echo NL EF, Dr. An consulted for LEXIE today GI: - Nothing by mouth for LEXIE. until mental status improved, IV famotidine : - Monitor renal function closely. - Aggressive fluid resuscitation - Monitor CPK ID: - Severe sepsis with MRSA bacteremia. - Continue meningitic doses of Vancomycin, Rocephin - ID Dr. Hernandez. LP findings consistent with bacterial meningitis - CSF cx neg to date, but LP was avitia after 24 hours on ABX - MRI spine, 2 D Echo negative. LEXIE today HEME: - Leukocytosis from sepsis. Monitor CBC, CMP ENDO: - Electrolyte replacement per protocol PROPH: - Bilateral lower extremity SCDs. Lovenox- start 40 mg sq daily, Famotidine LINES: - Utilize peripheral IVs, central line if needed CC time 35 min Geovany Davila MD May 25, 2017 12:40
[2017-05-25] MEDS ORDERED: MIDAZOLAM HCL 5 MG/ML VIAL (1 ML) ONE (13:56)
[2017-05-25 14:19] LABS: PHOSPHORUS 1.7 MG/DL (2.5-4.9)
--- NOTE | 2017-05-25 15:21 | ECHRPT ---
Indication: SEPSIS ENDOCARDITIS CONCLUSIONS Normal LV dimensions and function Estimated Ejection Fraction 50% No significant valvulopathies No vegetations or Masses No masses or clots in RIKY No pericardial effusion BP: / HR: Rhythm: Technical Quality: Medications Complications Proc. Components Quinton Mcgee MD (Electronically Signed) Final Date:25 May 2017 15:21
[2017-05-25] MEDS: POTASSIUM CHLORIDE 25 MEQ EFFERVESCENT TAB PO PRN (19:20)
[2017-05-25] MEDS: DILTIAZEM INJ 125 MG in SODIUM CHLORIDE 0.9% INJ 100 ML IV PRN (20:24)
[2017-05-25] MEDS ORDERED: DILTIAZEM HCL 25 MG/5 ML VIAL IV ONE (20:30)
[2017-05-25] MEDS ORDERED: DEXMEDETOMIDINE INJ 1,000 MCG in SODIUM CHLOR 0.9% 250 ML INJ 240 ML IV PRN (20:30)
--- NOTE | 2017-05-25 23:06 | RADRPT ---
EXAM DATE/TIME: 05/25/2017 19:27 [facility] COMPARISON: No previous studies available for comparison. INDICATIONS : Right arm swelling. MEDICAL HISTORY : Methicillin-resistant Staphylococcus aureus. SURGICAL HISTORY : None. ENCOUNTER: Initial ACUITY: 1 day PAIN SCORE: Non-responsive LOCATION: Right arm. FINDINGS: Tunick from seen in the basilic vein and cephalic vein. Intact flow in the subclavian, axillary, and brachial veins. CONCLUSION: Nonocclusive thrombus of the cephalic and basilic veins without evidence of proximal propagation. Armando Peterson MD on May 25, 2017 at 23:02 Board Certified Radiologist. This report was verified electronically.
[2017-05-26] VITALS (11 sets, daily range): BP systolic 116–190; BP diastolic 66–102; PULSE 81–170; RESP 15–30; TEMP 98.5–99; O2SAT 94–99
[2017-05-26] MEDS: RESP: ALBUTEROL 2.5 MG/IPRATROPIUM 0.5 MG NEB (SCH) NEB ×4 (03:40→20:17)
[2017-05-26] MEDS ORDERED: chlordiazePOXIDE 25 MG CAP PO SCH (06:40)
[2017-05-26] MEDS ORDERED: chlordiazePOXIDE 25 MG CAP PO PRN (06:45)
[2017-05-26] MEDS: DOCUSATE SODIUM 50 MG/SENNA 8.6 MG TAB PO SCH ×2 (08:07→21:00)
[2017-05-26] MEDS: cefTRIAXone INJ 2,000 MG in SODIUM CHLORIDE 0.9% INJ 100 ML IV SCH ×2 (08:07→22:14)
[2017-05-26] MEDS: SODIUM CHLORIDE 0.9% FLUSH 10 ML FLUSH IV FLUSH SCH ×2 (08:07→21:00)
[2017-05-26] MEDS: ENOXAPARIN SODIUM 40 MG/0.4 ML SYRINGE SQ SCH (08:08)
[2017-05-26] MEDS ORDERED: PHARMACY ORDERED LAB ONE (08:45)
[2017-05-26] MEDS: MORPHINE SULFATE 2 MG/ML INJ IV PUSH PRN ×2 (09:58→13:20)
[2017-05-26] MEDS ORDERED: IOHEXOL 350 MG/ML 10 ML VIAL (for RAD DIAG) IVCONTRAST ONE (11:16)
--- NOTE | 2017-05-26 11:32 | RADRPT ---
EXAM DATE/TIME: 05/26/2017 10:55 [facility] COMPARISON: MRI LUMBAR SPINE W & W/O CONTRAST, May 24, 2017, 9:12. INDICATIONS : Evaluate for abscess. IV CONTRAST: 90 cc Omnipaque 350 (iohexol) IV ; Cumulative dose for multiple exams. ORAL CONTRAST: No oral contrast ingested. RADIATION DOSE: 14.88 CTDIvol (mGy) ; Combined studies - Thorax/Abdomen/Pelvis MEDICAL HISTORY : None SURGICAL HISTORY : None. ENCOUNTER: Initial ACUITY: 2 days PAIN SCALE: Non-responsive LOCATION: Abdomen TECHNIQUE: Volumetric scanning of the abdomen and pelvis was performed. Using automated exposure control and ad justment of the mA and/or kV according to patient size, radiation dose was kept as low as reasonably achievable to obtain optimal diagnostic quality images. DICOM format image data is available electro nically for review and comparison. FINDINGS: LOWER LUNGS: To large bilateral pleural effusion with extensive passive atelectasis both lung bases. LIVER: Homogeneous density without lesion. There is no dilation of the biliary tree. No calcified gallston es. SPLEEN: Normal size without lesion. PANCREAS: Within normal limits. KIDNEYS: Normal in size and shape. There is no mass, stone or hydronephrosis. ADRENAL GLANDS: Within normal limits. VASCULAR: There is no aortic aneurysm. BOWEL/MESENTERY: The stomach, small bowel, and colon demonstrate no acute abnormality. There is no free intraperitone al air or fluid. There is some fluid down both paracolic gutters right greater than left. I believe w e can see the appendix (series 601 image 42) without dilatation or obstruction ABDOMINAL WALL: Within normal limits. RETROPERITONEUM: There does be some inflammation in and around the abdominal aorta possibly originating from the lumba r spine. There is cystic change at the T3 endplate initially concerning for discitis. It is not obvio us in the recently performed lumbar spine MRI. There are innumerable small lymph nodes scattered arou nd the retroperitonem. There is some edema extending into the posterior pelvis around the iliopsoas m uscles which are symmetric BLADDER: No wall thickening or mass. REPRODUCTIVE: Within normal limits. INGUINAL: There is no lymphadenopathy or hernia. MUSCULOSKELETAL: Within normal limits for patient age. CONCLUSION: Definite retroperitoneal inflammation around the abdominal aorta as well as extensive small lymph nod es throughout the retroperitoneum. There is also free fluid in both paracolic gutters right greater t candelaria left. I was initially concerning about a possible discitis at L2-3 with some cystic change along the endplates, particularly L2-3. Large bilateral pleural effusion with passive atelectasis. Sean Brown MD on May 26, 2017 at 11:23 Board Certified Radiologist. This report was verified electronically.
[2017-05-26] MEDS: THIAMINE INJ 100 MG in SODIUM CHLORIDE 0.9% INJ 100 ML IV SCH (11:41)
[2017-05-26] MEDS: VANCOMYCIN INJ 1,250 MG in SODIUM CHLOR 0.9% 250 ML INJ 250 ML IV SCH (11:42)
--- NOTE | 2017-05-26 11:53 | RADRPT ---
EXAM DATE/TIME: 05/26/2017 10:55 [facility] COMPARISON: CHEST SINGLE AP, May 22, 2017, 5:23. INDICATIONS : Evaluate infiltrate, fluid collection. IV CONTRAST: 90 cc Omnipaque 350 (iohexol) IV ; Cumulative dose for multiple exams. RADIATION DOSE: 14.88 CTDIvol (mGy) ; Combined studies - Thorax/Abdomen/Pelvis MEDICAL HISTORY : None SURGICAL HISTORY : None. ENCOUNTER: Initial ACUITY: 2 days PAIN SCALE: Non-responsive LOCATION: chest TECHNIQUE: Volumetric scanning of the chest was performed. Using automated exposure control and adjustment of t he mA and/or kV according to patient size, radiation dose was kept as low as reasonably achievable to obtain optimal diagnostic quality images. DICOM format image data is available electronically for review and comparison. Follow-up recommendations for detected pulmonary nodules are based at a minimum on nodule size and pa tient risk factors according to Fleischner Society Guidelines. FINDINGS: There are moderate sized posterior layering pleural effusions bilaterally. There is associated passiv e atelectasis with the adjacent lung parenchyma. Patchy areas of intralobular opacification are seen within the aerated portions of the upper lobes and lower lobes. The heart is normal in size. No adeno ling within the mediastinum. Aorta and pulmonary arteries are normal in caliber. No pericardial effu jluis. CONCLUSION: Moderate sized bilateral pleural effusions with small areas of patchy consolidation as well as passiv e atelectasis. This is a new finding from the prior chest x-ray. Noncardiogenic pulmonary edema versu s infectious etiology. Armando Ennis Jr., MD on May 26, 2017 at 11:48 Board Certified Radiologist. This report was verified electronically.
[2017-05-26 12:34] LABS: MAGNESIUM 2.1 MG/DL (1.5-2.5)
[2017-05-26] MEDS: hydrALAZINE HCL 20 MG/ML VIAL IV PUSH PRN (13:21)
[2017-05-26] MEDS: POTASSIUM PHOSPHATE INJ 30 MMOL in SODIUM CHLOR 0.9% 250 ML INJ 250 ML IV PRN (13:23)
[2017-05-26 13:51] LABS: HSV 1,PCR Negative (Negative)
[2017-05-26] MEDS ORDERED: DILTIAZEM HCL 25 MG/5 ML VIAL IV ONE ×2 (14:00→17:00)
[2017-05-26] MEDS ORDERED: METOPROLOL TARTRATE 5 MG/5 ML VIAL ONE (14:01)
[2017-05-26] MEDS: DILTIAZEM INJ 125 MG in SODIUM CHLORIDE 0.9% INJ 100 ML IV PRN ×2 (14:22→22:30)
[2017-05-26] MEDS ORDERED: ROCURONIUM INJ 50 MG/5 ML VIAL IV ONE (14:30)
[2017-05-26] MEDS ORDERED: MIDAZOLAM HCL 5 MG/5 ML VIAL IV PUSH ONE (14:30)
[2017-05-26] MEDS ORDERED: fentaNYL CITRATE 250 MCG/5 ML AMP IV PUSH ONE (14:30)
--- NOTE | 2017-05-26 14:46 | HHI.CCPN ---
Subjective Remarks/Hospital Course Patient is a 66-year-old male with history of anxiety, arthritis, substance abuse who was initially admitted to hospitalist service with altered mentation, and back pain. Found to have UDS positive for cocaine. In the ED patient was anxious and combative. Initially admitted to the medical floor. WBC 14.2 with bandemia, lactic acid 3.4, BUN/abdomen 27/1.49. Patient was given IV fluids, started on Cefepime and vanc but he continued to become more combative restless and altered. Patient was moved to the ICU and I immediately evaluated him. Patient is in four point restraints. He was unable to communicate, very agitated. Heart rate is in 160s rhythm appears to be A. fib with RVR. Patient was given 2 mg IV morphine and 2 mg IV Versed. He still intermittently agitated and started him on Precedex infusion. Patient is intermittently apneic but wakes up to painful stimuli. Because of severe agitation and drug withdrawal I am unable to get any additional history 05/23/17: Patient remains confused but intermittently oriented to person and somewhat place. Continues to repeat same words (Echolalia). Blood cultures GPC 3/4 bottles. Echo pending, also will proceed with LP. Change Cefepime to Rocephin, Add ampicillin 05/24/17: Continues to be septic encephalopathy. Blood cultures growing MRSA. Echo pending, but circled limited I did not see any vegetation. LP findings consistent with bacterial meningitis 05/25/17: Remains critically ill but stable. Encephalopathy slowly improving, on weaning doses of Precedex. Afib with RVR, re start Cardizem. LEXIE today to rule out endocarditis. 05/26/17: Patient remains intermittently agitated tachycardic tachypneic. Weaned off Precedex. In A. fib with RVR Cardizem IV push and Lopressor IV push given without response. Start Cardizem infusion. CT shows bilateral large pleural effusions because of MRSA bacteremia needs to be drained. CT abdomen pelvis probable L2-L3 discitis. Discussed with radiologist Dr. Brown. Discussed with daughter, will proceed with intubation and possible biopsy Objective Vital Signs Date Time Temp Pulse Resp B/P (MAP) Pulse Ox O2 Delivery O2 Flow Rate FiO2 05/26/17 09:20 98 Nasal Cannula 2.00 05/26/17 04:00 98.5 114 25 161/89 (113) Intake and Output 05/26/17 05/26/17 05/27/17 08:00 16:00 00:00 Output Total 1000 ml Balance -1000 ml Result Diagram: 05/25/17 0719 05/26/[address] of the head, chest x-ray negative for acute findings Objective Remarks GENERAL: This is a well-nourished, well-developed patient, intermittently agitated and tachypneic SKIN: No rashes. Cool and dry. HEAD: Atraumatic. Normocephalic. No temporal or scalp tenderness. EYES: Pupils equal round and reactive. ENT: Airway patent. NECK: Trachea midline. No JVD or lymphadenopathy. Supple No neck stiffness CARDIOVASCULAR: Atrial fibrillation with rapid ventricular response. RESPIRATORY: Bilateral course breath sounds and diminished at the bases GASTROINTESTINAL: Abdomen soft, non-tender, nondistended. MUSCULOSKELETAL: Difficult to asses for back tenderness, due to altered mentation NEUROLOGICAL: Patient is restrained, tachypneic intermittently agitated. Moves all extremities spontaneously, intermittently following commands A/P Assessment and Plan ASSESSMENT: Bacterial meningitis Probable L2-L3 discitis MRSA bacteremia Severe sepsis Substance abuse with severe withdrawal Severe encephalopathy Atrial fibrillation with RVR Acute kidney injury Lactic acidosis Acute rhabdomyolysis UDS positive for cocaine PLAN: NEURO: - Delirium and encephalopathy secondary to severe sepsis and drug withdrawal - Urine drug screen positive for cocaine, history of IV opiate abuse - Use Precedex for sedation and withdrawal symptoms, PRN Versed for procedures, - Librium for agitation, morphine for pain control - CIWA protocol. Continue thiamine - MRI brain no acute finding. MRI spine no evidence of abscess RESP: - Nasal cannula oxygen - Patient is tachypneic and has bilateral large pleural effusions - Intubated for respiratory distress and to facilitate lumbar disc biopsy - DuoNeb every 6 hours when necessary CV: - Normal saline IV fluids 100 ml per hour - Trend lactic acid, now normalized - Currently atrial fibrillation with RVR. Restart Cardizem infusion, after 50 mg IV push and 5 mg metoprolol bolus - Atrial fibrillation is most likely from drug withdrawal will not anticoagulate at this time due to thrombocytopenia and anticipated lumbar disc biopsy - 2-D echo NL EF, Dr. An consulted for LEXIE-negative for vegetation GI: - Nothing by mouth for LEXIE. until mental status improved, IV famotidine : - Monitor renal function closely. - Aggressive fluid resuscitation - Monitor CPK ID: - Severe sepsis with MRSA bacteremia. Probable L2-L3 discitis - Continue meningitic doses of Vancomycin, Rocephin - ID Dr. Hernandez. LP findings consistent with bacterial meningitis - CSF cx neg to date, but LP was done after 24 hours on ABX - MRI spine, [address] abd shows ? L2-L3 discitis. Biopsy ordered HEME: - Leukocytosis from sepsis. Monitor CBC, CMP ENDO: - Electrolyte replacement per protocol PROPH: - Bilateral lower extremity SCDs. Lovenox- 40 mg sq daily-hold for invasive procedures, Famotidine LINES: - Utilize peripheral IVs, central line if needed CC time 45 min Critically ill with severe sepsis and ongoing bacteremia with MRSA. Evidence of L2-L3 discitis and large pleural effusions. Intubate to facilitate biopsy, and also due to respiratory distress. Geovany Davila MD May 26, 2017 14:46
--- NOTE | 2017-05-26 15:05 | PD.PROCEDR ---
Procedure Note Procedure After the risks and benefits were discussed the following procedure was performed: INTUBATION: The patient was put in optimal position for the procedure. Rapid sequence intubation was initiated by me using 5 milligrams of Versed IV and 100 milligrams of Fentanyl IV. Rocuronium 50 mg IV for NM paralysis. Dl with Mac 4 blade grade 1 view. The patient was intubated with a 8 cuffed endotracheal tube. Tube placement was confirmed by visualization of the tube and balloon passing through the cords, capnometry and subsequent chest x-ray. Breath sounds were equal and well aerated bilaterally postintubation. No breath sounds over stomach. Patient tolerated procedure well. Geovany Davila MD May 26, 2017 15:05
--- NOTE | 2017-05-26 15:22 | HHI.IDPN ---
Note Infectious Disease Note Patient was intubated. About to go for L2-3 disc space aspirate. MRI felt to have discitis. Afebrile. Blood culture has gram positive cocci on 05/25, MRSA 05/22. CSF culture no growth. Patient admitted to hospital with altered mental status. The patient was evaluated in the emergency department and he was complaining of lower back pain. The patient had positive, screen of the urine for cocaine. PAST MEDICAL HISTORY: 1. Arthritis 2. Anxiety. 3. Substance abuse. ALLERGIES NO KNOWN DRUG ALLERGIES. MEDICATIONS 1. Vancomycin. 2. Ceftriaxone. Current Medications Medications (Trade) Dose Ordered Sig/Frandy Route PRN Reason Start Time Stop Time Status Last Admin Dose Admin Sodium Chloride (NS Flush) 2 ml UNSCH PRN IV FLUSH FLUSH AFTER USING IV ACCESS 05/22/17 06:15 Sodium Chloride (NS Flush) 2 ml BID IV FLUSH 05/22/17 09:00 05/26/17 08:07 Ondansetron HCl (Zofran Inj) 4 mg Q6H PRN IVP NAUSEA OR VOMITING 05/22/17 06:15 Acetaminophen (Tylenol) 650 mg Q6H PRN PO FEVER 05/22/17 06:15 Senna/Docusate Sodium (Sabrina-Colace) 1 tab BID PO 05/22/17 09:00 Magnesium Hydroxide (Milk Of Magnesia Liq) 30 ml Q12H PRN PO Mild constipation 05/22/17 06:15 Sennosides (Senokot) 17.2 mg Q12H PRN PO Moderate constipation 05/22/17 06:15 Bisacodyl (Dulcolax Supp) 10 mg DAILY PRN RECTAL SEVERE CONSITIPATION 05/22/17 06:15 Lactulose (Lactulose Liq) 30 ml DAILY PRN PO SEVERE CONSITIPATION 05/22/17 06:15 Flumazenil (Romazicon Inj) 0.2 mg Q1M PRN IV PUSH SEE LABEL COMMENTS 05/22/17 11:30 Lorazepam (Ativan) 1 mg Q4H PRN PO CIWA 8 - 10 05/22/17 11:30 Lorazepam (Ativan) 2 mg Q2H PRN PO CIWA 11-14 05/22/17 11:30 05/25/17 19:19 Thiamine HCl 100 mg/Sodium Chloride 101 ml @ 101 mls/hr DAILY IV 05/22/17 13:00 05/26/17 11:41 Albuterol/ Ipratropium (Duoneb Neb) 1 ampule Q2HR NEB PRN NEB SOB/WHEEZING 05/22/17 12:00 Diltiazem HCl 125 mg/Sodium Chloride 125 ml @ 5 mls/hr TITRATE PRN IV Tachycardia 05/22/17 16:00 05/26/17 14:22 Pharmacy Profile Note 0 ml @ 0 mls/hr UNSCH OTHER 05/23/17 07:30 Ceftriaxone Sodium 2000 mg/ Sodium Chloride 100 ml @ 200 mls/hr Q12H IV 05/23/17 08:15 05/26/17 08:07 Haloperidol Lactate (Haldol Inj) 5 mg Q4H PRN IV agitation 05/24/17 08:15 05/25/17 23:08 Potassium Chloride 100 ml @ 50 mls/hr Q2H PRN IV For Potassium 2.8 - 3.2 mEq/L 05/24/17 08:15 Potassium Chloride 100 ml @ 50 mls/hr Q2H PRN IV For Potassium 2.8 - 3.2 mEq/L 05/24/17 08:15 05/25/17 08:00 Potassium Bicarb/ Potassium Chloride (K-Lyte Cl Eff) 50 meq UNSCH PRN PO For Potassium 3.3 - 3.5 mEq/L 05/24/17 08:15 05/25/17 19:20 Potassium Chloride 100 ml @ 25 mls/hr UNSCH PRN IV For Potassium 3.3 - 3.5 mEq/L 05/24/17 08:15 Potassium Chloride 100 ml @ 50 mls/hr Q2H PRN IV For Potassium 3.3 - 3.5 mEq/L 05/24/17 08:15 Magnesium Sulfate 4 gm/Sodium Chloride 100 ml @ 50 mls/hr UNSCH PRN IV For Magnesium 0.9 - 1.1 mg/dL 05/24/17 08:15 Magnesium Oxide (Mag-Ox) 800 mg UNSCH PRN PO For Magnesium 1.2 - 1.6 mg/dL 05/24/17 08:15 Magnesium Sulfate 2 gm/Sodium Chloride 100 ml @ 50 mls/hr UNSCH PRN IV For Magnesium 1.2 - 1.6 mg/dL 05/24/17 08:15 Potassium Phosphate (K-Phos) 2,000 mg Q4H PRN PO For Phosphorus < 2.5 mg/dL 05/24/17 08:15 Sodium Phosphate 30 mmol/Sodium Chloride 250 ml @ 42 mls/hr UNSCH PRN IV For Phosphorus < 2.5 mg/dL 05/24/17 08:15 Potassium Phosphate (K-Phos) 2,000 mg UNSCH PRN PO/TUBE SEE LABEL COMMENTS 05/24/17 08:15 Potassium Phosphate 30 mmol/ Sodium Chloride 260 ml @ 42 mls/hr UNSCH PRN IV SEE LABEL COMMENTS 05/24/17 08:15 05/26/17 13:23 Albuterol/ Ipratropium (Duoneb Neb) 1 ampule Q6HR NEB NEB 05/24/17 16:00 05/26/17 09:17 Chlordiazepoxide (Librium) 25 mg Q6H PRN PO WITHDRAWAL 05/26/17 06:45 Enoxaparin Sodium (Lovenox Inj) 40 mg Q24H SQ 05/26/17 09:00 Future Hold 05/26/17 08:08 Morphine Sulfate (Morphine Inj) 4 mg Q3H PRN IV PUSH pain 5-10 05/26/17 09:30 05/26/17 13:20 Hydralazine HCl (Apresoline Inj) 20 mg Q6H PRN IV PUSH SYS BP GREATER THAN 170 MMHG 05/26/17 13:00 05/26/17 13:21 Vancomycin HCl 1500 mg/Sodium Chloride 515 ml @ 257.5 mls/ hr Q12H IV 05/26/17 23:00 Miscellaneous Information SPECIFIC LAB TO BE DRAWN:VANCO TROUGH DATE TO BE DRFeliz.. ONCE ONCE .XX 05/28/17 10:45 05/28/17 10:46 OBJECTIVE: Vital Signs Date Time Temp Pulse Resp B/P (MAP) Pulse Ox O2 Delivery O2 Flow Rate FiO2 05/26/17 14:22 162 181/93 05/26/17 09:20 98 Nasal Cannula 2.00 05/26/17 04:00 98.5 114 25 161/89 (113) 97 05/26/17 00:00 98.9 81 26 133/72 (92) 95 05/25/17 21:27 98 Nasal Cannula 2.00 05/25/17 21:00 95 Nasal Cannula 2.00 05/25/17 20:24 147 150/89 05/25/17 20:00 99.1 102 25 157/80 (105) 99 05/25/17 16:00 99.7 108 24 197/109 (138) 96 Vital Signs Date Time Temp Pulse Resp B/P (MAP) Pulse Ox O2 Delivery O2 Flow Rate FiO2 05/25/17 10:27 100 Nasal Cannula 4.00 05/25/17 04:00 98.9 93 27 139/84 (102) 95 05/25/17 00:00 100.0 103 28 148/96 (113) 93 05/24/17 21:39 95 Nasal Cannula 2.00 05/24/17 20:00 99.7 92 25 161/92 (115) 97 05/24/17 20:00 98 Nasal Cannula 2.00 05/24/17 16:00 98.1 78 21 114/72 (86) 99 05/24/17 12:00 99.3 74 21 119/69 (86) 99 Laboratory Tests Test 05/25/17 07:19 White Blood Count 13.1 TH/MM3 Red Blood Count 3.61 MIL/MM3 Hemoglobin 11.4 GM/DL Hematocrit 33.9 % Mean Corpuscular Volume 94.0 FL Mean Corpuscular Hemoglobin 31.6 PG Mean Corpuscular Hemoglobin Concent 33.6 % Red Cell Distribution Width 14.3 % Platelet Count 84 TH/MM3 Mean Platelet Volume 8.6 FL Neutrophils (%) (Auto) 79.0 % Lymphocytes (%) (Auto) 6.5 % Monocytes (%) (Auto) 12.8 % Eosinophils (%) (Auto) 1.4 % Basophils (%) (Auto) 0.3 % Neutrophils # (Auto) 10.3 TH/MM3 Lymphocytes # (Auto) 0.9 TH/MM3 Monocytes # (Auto) 1.7 TH/MM3 Eosinophils # (Auto) 0.2 TH/MM3 Basophils # (Auto) 0.0 TH/MM3 CBC Comment AUTO DIFF Differential Total Cells Counted 100 Neutrophils % (Manual) 76 % Band Neutrophils % 4 % Lymphocytes % 7 % Monocytes % 11 % Neutrophils # (Manual) 10.7 TH/MM3 Metamyelocytes 1 % Myelocytes 1 % Differential Comment FINAL DIFF MANUAL Platelet Estimate LOW Platelet Morphology Comment NORMAL Red Cell Morphology Comment NORMAL Laboratory Tests Test 05/25/17 07:19 05/25/17 13:25 12/19/17 11:25 Blood Urea Nitrogen 17 MG/DL Creatinine 0.79 MG/DL Random Glucose 119 MG/DL Calcium Level 7.8 MG/DL Sodium Level 146 MEQ/L Potassium Level 3.2 MEQ/L 3.2 MEQ/L Chloride Level 115 MEQ/L Carbon Dioxide Level 24.1 MEQ/L Anion Gap 7 MEQ/L Estimat Glomerular Filtration Rate 98 ML/MIN Phosphorus Level 1.7 MG/DL 2.0 MG/DL Magnesium Level 2.0 MG/DL 2.1 MG/DL Microbiology Date/Time Source Procedure Growth Status 05/25/17 05:25 Blood Peripheral Aerobic Blood Culture - Preliminary NO GROWTH IN 1 DAY Resulted 05/25/17 05:25 Anaerobic Blood Culture - Preliminary Gram Positive Cocci Resulted 05/25/17 05:15 Blood Peripheral Aerobic Blood Culture - Preliminary Gram Positive Cocci Resulted 05/25/17 05:15 Blood Peripheral Anaerobic Blood Culture - Preliminary NO GROWTH IN 1 DAY Resulted IMAGING: Last [address] 05/26/17 0000 Signed Impressions: Service Date/Time: Friday, May 26, 2017 10:55 - CONCLUSION: Moderate sized bilateral pleural effusions with small areas of patchy consolidation as well as passive atelectasis. This is a new finding from the prior chest x-ray. Noncardiogenic pulmonary edema versus infectious etiology. Armando Ennis Jr., MD Abdomen/Pelvis CT 05/26/17 0000 Signed Impressions: Service Date/Time: Friday, May 26, 2017 10:55 - CONCLUSION: Definite retroperitoneal inflammation around the abdominal aorta as well as extensive small lymph nodes throughout the retroperitoneum. There is also free fluid in both paracolic gutters right greater than left. I was initially concerning about a possible discitis at L2-3 with some cystic change along the endplates, particularly L2-3. Large bilateral pleural effusion with passive atelectasis. Sean Brown MD Upper Extremity Ultrasound 05/25/17 0000 Signed Impressions: Service Date/Time: Thursday, May 25, 2017 19:27 - CONCLUSION: Nonocclusive thrombus of the cephalic and basilic veins without evidence of proximal propagation. Armando Peterson MD Thoracic Spine MRI 05/24/17 0000 Signed Impressions: Service Date/Time: Wednesday, May 24, 2017 09:12 - CONCLUSION: 1. Minimal disc osteophyte complexes at T7-8, T8-9 and T9-10. 2. No spinal stenosis, focal disc herniation or significant neural foraminal narrowing. 3. No enhancing abscess collection. Abilio Eastman MD Lumbar Spine MRI 05/24/17 0000 Signed Impressions: Service Date/Time: Wednesday, May 24, 2017 09:12 - CONCLUSION: 1. Mild spinal stenosis and mild to moderate bilateral narrowing at L2-3, L3-4 and L4- 5. 2. Mild spinal stenosis and mild bilateral foraminal narrowing at L1-2. 3. Diffuse degenerative disease throughout the lumbar spine. 4. No evidence of enhancing abscess. Abilio Eastman MD Cervical Spine MRI 05/24/17 0000 Signed Impressions: Service Date/Time: Wednesday, May 24, 2017 09:12 - CONCLUSION: 1. Mild bilateral foraminal narrowing at C3-4, C4-5, C5-6 and C6-7. 2. No enhancing abscess. 3. Reversal of the normal cervical lordosis. 4. Diffuse cervical spondylosis from C3-C7. Abilio Eastman MD Brain MRI 05/24/17 0000 Signed Impressions: Service Date/Time: Wednesday, May 24, 2017 09:12 - CONCLUSION: 1. Mild periventricular white matter small vessel ischemic changes are noted bilaterally. 2. No acute infarct, acute hemorrhage, mass effect or extra- axial fluid collections. 3. No abnormal enhancing mass lesion. Abilio Eastman MD Head CT 05/22/17 0443 Signed Impressions: Service Date/Time: Monday, May 22, 2017 05:16 - CONCLUSION: No acute intracranial findings. Scott Morfin MD Chest X-Ray 05/22/17 0443 Signed Impressions: Service Date/Time: Monday, May 22, 2017 05:23 - CONCLUSION: No acute cardiopulmonary disease identified. Scott Morfin MD PHYSICAL EXAM. GENERAL: On vent. HEAD, EYES, EARS, NOSE, AND THROAT: The head is atraumatic. No icterus. NECK: No swelling. No adenopathy. LUNGS: Clear breath sounds. HEART: Tachycardic. S1-S2. No audible murmurs or rubs or gallops. ABDOMEN: Bowel sounds present, soft, unable to appreciate tenderness. No masses. GENITOURINARY: Normal genitalia. EXTREMITIES: No clubbing or cyanosis. Both hands with edema at the dorsum of the hands. There is mild erythema at the dorsum of the right hand. No splinter hemorrhages at the nail beds. No calf tenderness appreciated. No palpable cords. SKIN: No diffuse rash. NEUROLOGIC: Unable to assess. PSYCHIATRIC: Psych unable to assess. IMPRESSION 1. Abnormal cerebrospinal fluid suggesting meningitis and very likely bacterial meningitis. CSF culture has no growth. 2. Bacteremia MRSA. Unclear etiology. ? related to the back pain. MRI read no spinal abscess However CT abdomen concerning for L2-3 discitis. I think discitis may well explain the positive blood culture. Extensive small lymph nodes in the abdomen ? etiology. May not be related to infection. 3. Positive toxicology screen for cocaine. RECOMMENDATIONS 1. Continue ceftriaxone. 2. Continue Vancomycin. 3. Monitor the cerebrospinal fluid cultures. 4. Follow repeat blood cultures. 5. Monitor spinal biopsy/aspirate culture. Giovanni Hernandez MD May 26, 2017 15:22
[2017-05-26] MEDS: PROPOFOL 1000 MG/100 ML INJ 100 ML IV PRN (15:30)
[2017-05-26] MEDS: fentaNYL DRIP 250 ML IV PRN (15:30)
[2017-05-26 15:46] LABS: AUTOMATED NEUTROPHIL # 11.3 TH/MM3 (1.8-7.7); BASOPHIL # 0.1 TH/MM3 (0-0.2); BASOPHIL % 0.5 % (0.0-2.0); EOSINOPHIL # 0.1 TH/MM3 (0-0.4); EOSINOPHIL % 0.6 % (0.0-4.0); HEMATOCRIT 36.9 % (39.0-51.0); HEMOGLOBIN 12.4 GM/DL (13.0-17.0); LYMPH % 8.3 % (9.0-44.0); LYMPHOCYTE # 1.2 TH/MM3 (1.0-4.8); MEAN CELL VOLUME 94.1 FL (80.0-100.0); MEAN CORPUSCULAR HEMOGLOBIN 31.7 PG (27.0-34.0); MEAN CORPUSCULAR HGB CONC 33.7 % (32.0-36.0); MEAN PLATELET VOLUME 8.6 FL (7.0-11.0); MONO % 8.5 % (0.0-8.0); MONOCYTE # 1.2 TH/MM3 (0-0.9); NEUT % 82.1 % (16.0-70.0); PLATELET COUNT 107 TH/MM3 (150-450); RED BLOOD COUNT 3.92 MIL/MM3 (4.50-5.90); WHITE BLOOD COUNT 13.8 TH/MM3 (4.0-11.0)
--- NOTE | 2017-05-26 15:55 | RADRPT ---
EXAM DATE/TIME: 05/26/2017 15:27 [facility] COMPARISON: CHEST SINGLE AP, May 22, 2017, 5:23. INDICATIONS : Post intubation. MEDICAL HISTORY : Methicillin-resistant Staphylococcus aureus. SURGICAL HISTORY : None. ENCOUNTER: Subsequent ACUITY: 2 days PAIN SCORE: Non-responsive. LOCATION: Bilateral chest FINDINGS: A single view of the chest demonstrates the endotracheal tube is just above the rhona. There is bila teral perihilar vascular congestion. No visible pneumothorax. The cardiomediastinal contours are unr emarkable. Osseous structures are intact. CONCLUSION: Endotracheal tube is in good position. Mild perihilar basilar congestion. Sean Brown MD on May 26, 2017 at 15:52 Board Certified Radiologist. This report was verified electronically.
[2017-05-26 15:58] LABS: INTERNATIONAL NORMALIZED RATIO 1.2 RATIO; PROTHROMBIN TIME - PATIENT 12.2 SEC (9.8-11.6)
[2017-05-26 16:18] LABS: BANDS 2 % (0-6); DOHLE BODIES PRESENT (NONE SEEN); LYMPHOCYTES 8 % (9-44); MONOCYTES 3 % (0-8); MYELOCYTES 1 % (0-0); NEUTROPHIL # MANUAL DIFF 11.9 TH/MM3 (1.8-7.7); POLYS (SEG NEUTROPHILS) 83 % (16-70); TOXIC GRANULATION 1+ (NORMAL)
[2017-05-26 16:20] LABS: ACANTHOCYTES OCC (NORMAL)
--- NOTE | 2017-05-26 16:31 | EKG ---
Date Performed: 05/25/2017 Time Performed: 20:18:26 PTAGE: 66 years EKG: Atrial fibrillation with rapid ventricular response. Septal T wave changes are nonspecific When compared to previous tracing, atrial fibrillation is new, as Are ST changes, suggesting ischemia . Clinical corrolation is suggested. Abnormal ECG PREVIOUS TRACING : 05/22/2017 17.19 DOCTOR: Sanket Schmitt Interpretating Date/Time 05/26/2017 16:30:33
[2017-05-26] MEDS ORDERED: METOPROLOL TARTRATE 5 MG/5 ML VIAL IV PUSH ONE (16:45)
[2017-05-26] MEDS ORDERED: DIGOXIN 0.5 MG/2 ML VIAL IV PUSH ONE (17:00)
[2017-05-26] MEDS: CHLORHEXIDINE 0.12% (ORAL KIT) 15 ML CUP MT SCH (20:00)
[2017-05-26 20:02] LABS: ENTEROVIRUS PCR RESULT Negative (Negative); ENTEROVIRUS PCR SPEC SOURCE CSF
[2017-05-26] MEDS: METOPROLOL TARTRATE 5 MG/5 ML VIAL IV PUSH SCH (22:00)
[2017-05-26] MEDS: VANCOMYCIN 1,500 MG/NS 500 ML IV SCH ×2 (23:00)
[2017-05-27] VITALS (13 sets, daily range): BP systolic 113–190; BP diastolic 59–100; PULSE 76–102; RESP 16–19; TEMP 98.7–99.4; O2SAT 92–100
[2017-05-27] MEDS ORDERED: DEXTROSE 50% IN WATER 50 ML SYRINGE ONE (00:24)
[2017-05-27] MEDS ORDERED: GLUCAGON 1 MG/ML VIAL OTHER PRN (00:45)
[2017-05-27] MEDS ORDERED: DEXT 5%-NACL 0.45% 1000 ML INJ 1,000 ML IV SCH (00:45)
[2017-05-27 01:25] LABS: PHOSPHORUS 4.6 MG/DL (2.5-4.9)
[2017-05-27] MEDS: INSULIN NovoLIN REGULAR SUPPLEMENTAL SCALE SQ SCH ×5 (04:00→20:00)
[2017-05-27] MEDS: METOPROLOL TARTRATE 5 MG/5 ML VIAL IV PUSH SCH ×4 (04:00→21:13)
[2017-05-27] MEDS: RESP: ALBUTEROL 2.5 MG/IPRATROPIUM 0.5 MG NEB (SCH) NEB ×4 (04:43→20:29)
--- NOTE | 2017-05-27 06:00 | RADRPT ---
EXAM DATE/TIME: 05/27/2017 04:48 [facility] COMPARISON: CHEST SINGLE AP, May 26, 2017, 15:27. INDICATIONS : Shortness of breath. MEDICAL HISTORY : MRSA SURGICAL HISTORY : None. ENCOUNTER: Subsequent ACUITY: 3 days PAIN SCORE: Non-responsive. LOCATION: Bilateral chest FINDINGS: ET tube and NG tube are well placed. The left heart border is silhouetted. There is increased density seen throughout the lungs bilaterally. There is silhouetting of the hemidiaphragms. The increased de nsities worse on the left. CONCLUSION: Diffuse increase density likely representing edema which appears worse. Some degree of effusion needs to be considered especially on the left. Giovanni Gomez MD on May 27, 2017 at 5:57 Board Certified Radiologist. This report was verified electronically.
[2017-05-27 06:08] LABS: ALBUMIN 1.5 GM/DL (3.4-5.0); AST (GOT) 32 U/L (15-37); BICARBONATE 23.7 MEQ/L (21.0-32.0); BLOOD UREA NITROGEN 20 MG/DL (7-18); CALCIUM 7.6 MG/DL (8.5-10.1); CHLORIDE 113 MEQ/L (98-107); CREATININE 0.97 MG/DL (0.60-1.30); GLOMERULAR FILTRATION RATE 77 ML/MIN (>89); GLUCOSE,RANDOM 83 MG/DL (74-106); MAGNESIUM 2.1 MG/DL (1.5-2.5); SODIUM (NA) 146 MEQ/L (136-145)
[2017-05-27 06:10] LABS: ALT (GPT) 36 U/L (12-78); PHOSPHORUS 4.1 MG/DL (2.5-4.9)
[2017-05-27 06:11] LABS: ALKALINE PHOSPHATASE 82 U/L (45-117); TOTAL BILIRUBIN ADULT 0.8 MG/DL (0.2-1.0); TOTAL PROTEIN 5.4 GM/DL (6.4-8.2)
[2017-05-27 06:12] LABS: AUTOMATED NEUTROPHIL # 9.1 TH/MM3 (1.8-7.7); BASOPHIL % 0.3 % (0.0-2.0); EOSINOPHIL # 0.2 TH/MM3 (0-0.4); EOSINOPHIL % 1.5 % (0.0-4.0); HEMATOCRIT 30.3 % (39.0-51.0); HEMOGLOBIN 10.2 GM/DL (13.0-17.0); LYMPH % 11.5 % (9.0-44.0); LYMPHOCYTE # 1.4 TH/MM3 (1.0-4.8); MEAN CORPUSCULAR HGB CONC 33.6 % (32.0-36.0); MEAN PLATELET VOLUME 9.3 FL (7.0-11.0); MONO % 9.3 % (0.0-8.0); MONOCYTE # 1.1 TH/MM3 (0-0.9); NEUT % 77.4 % (16.0-70.0); PLATELET COUNT 112 TH/MM3 (150-450); RED BLOOD COUNT 3.18 MIL/MM3 (4.50-5.90); RED CELL DISTRIBUTION WIDTH 14.3 % (11.6-17.2); WHITE BLOOD COUNT 11.8 TH/MM3 (4.0-11.0)
[2017-05-27] MEDS: fentaNYL DRIP 250 ML IV PRN (07:17)
[2017-05-27] MEDS: PROPOFOL 1000 MG/100 ML INJ 100 ML IV PRN ×3 (07:17→20:47)
--- NOTE | 2017-05-27 08:26 | HHI.CCPN ---
Subjective Remarks/Hospital Course Patient is a 66-year-old male with history of anxiety, arthritis, substance abuse who was initially admitted to hospitalist service with altered mentation, and back pain. Found to have UDS positive for cocaine. In the ED patient was anxious and combative. Initially admitted to the medical floor. WBC 14.2 with bandemia, lactic acid 3.4, BUN/abdomen 27/1.49. Patient was given IV fluids, started on Cefepime and vanc but he continued to become more combative restless and altered. Patient was moved to the ICU and I immediately evaluated him. Patient is in four point restraints. He was unable to communicate, very agitated. Heart rate is in 160s rhythm appears to be A. fib with RVR. Patient was given 2 mg IV morphine and 2 mg IV Versed. He still intermittently agitated and started him on Precedex infusion. Patient is intermittently apneic but wakes up to painful stimuli. Because of severe agitation and drug withdrawal I am unable to get any additional history 05/23/17: Patient remains confused but intermittently oriented to person and somewhat place. Continues to repeat same words (Echolalia). Blood cultures GPC 3/4 bottles. Echo pending, also will proceed with LP. Change Cefepime to Rocephin, Add ampicillin 05/24/17: Continues to be septic encephalopathy. Blood cultures growing MRSA. Echo pending, but circled limited I did not see any vegetation. LP findings consistent with bacterial meningitis 05/25/17: Remains critically ill but stable. Encephalopathy slowly improving, on weaning doses of Precedex. Afib with RVR, re start Cardizem. LEXIE today to rule out endocarditis. 05/26/17: Patient remains intermittently agitated tachycardic tachypneic. Weaned off Precedex. In A. fib with RVR Cardizem IV push and Lopressor IV push given without response. Start Cardizem infusion. CT shows bilateral large pleural effusions because of MRSA bacteremia needs to be drained. CT abdomen pelvis probable L2-L3 discitis. Discussed with radiologist Dr. Brown. Discussed with daughter, will proceed with intubation and possible biopsy 05/27/17: Patient was intubated yesterday for worsening agitation respiratory distress and also to facilitate L2-L3, CT-guided needle biopsy to rule out discitis. Blood cultures from 05/25/17 growing GPC most likely MRSA. Recommend bacteremia could be related to the L2-L3 discitis. Patient remains critically ill. Remains in atrial fibrillation with rate controlled. Cannot anticoagulate due to anticipated procedures (lumbar disc biopsy). Started on D5 1/2NS for hypoglycemia Objective Vital Signs Date Time Temp Pulse Resp B/P (MAP) Pulse Ox O2 Delivery O2 Flow Rate FiO2 05/27/17 04:44 94 50 05/27/17 04:00 98.8 82 16 131/59 (83) 05/26/17 19:00 Mechanical Ventilator 05/26/17 09:20 2.00 Intake and Output 05/27/17 05/27/17 05/28/17 08:00 16:00 00:00 Intake Total 1993 ml Output Total 510 ml Balance 1483 ml Result Diagram: 05/27/1744005/27/[address] of the head, chest x-ray negative for acute findings Objective Remarks GENERAL: This is a well-nourished, well-developed patient, intubated heavily sedated SKIN: Erythema, and warmth on dorsum of right hand HEAD: Atraumatic. Normocephalic. No temporal or scalp tenderness. EYES: Pupils equal round and reactive. ENT: Orotracheally intubated NECK: Trachea midline. No JVD or lymphadenopathy. Supple No neck stiffness CARDIOVASCULAR: Atrial fibrillation with controlled rate. RESPIRATORY: Bilateral course breath sounds and diminished at the bases GASTROINTESTINAL: Abdomen soft, non-tender, nondistended. MUSCULOSKELETAL: Difficult to asses for back tenderness, due to altered mentation. Right hand dorsum is warm with erythema NEUROLOGICAL: Patient is intubated heavily sedated. On lightening sedation most all extremities, does not follows commands A/P Assessment and Plan ASSESSMENT: Bacterial meningitis Probable L2-L3 discitis MRSA bacteremia, high grade Severe sepsis Hypoglycemia Severe encephalopathy Atrial fibrillation with RVR Large bilateral pleural effusions Substance abuse with severe withdrawal Acute kidney injury Lactic acidosis Acute rhabdomyolysis UDS positive for cocaine PLAN: NEURO: - Delirium and encephalopathy secondary to severe sepsis and drug withdrawal - Urine drug screen positive for cocaine, history of IV opiate abuse - Postintubation sedated with propofol and fentanyl - Start sedation vacation after lumbar disc biopsy procedure - CIWA protocol once extubated. Continue thiamine - MRI brain no acute finding. MRI spine no evidence of abscess RESP: - Intubated and placed on mechanical ventilation 12/19/17, due to respiratory distress agitation and also to facilitate biopsy procedure - DuoNeb scheduled and every 2 hours when necessary, vent bundle - Moderate to large bilateral pleural effusions, diagnostic and therapeutic thoracentesis today - Intubated for respiratory distress and to facilitate lumbar disc biopsy - DuoNeb every 6 hours when necessary CV: - D5-1/2NS for hypoglycemia. Give IV Lasix 20 mg 1 - Trend lactic acid, now normalized - Currently atrial fibrillation controlled rate. Cardizem infusion- change to PO in 24 hours - Atrial fibrillation is most likely from drug withdrawal will not anticoagulate at this time due to thrombocytopenia and anticipated lumbar disc biopsy - 2-D echo NL EF, Dr. An consulted for LEXIE-negative for vegetation, clot GI: - Nothing by mouth for L2-L3 disc needle bx. IV famotidine : - Monitor renal function closely. - Aggressive fluid resuscitation - Monitor CPK ID: - Severe sepsis with MRSA bacteremia. Probable L2-L3 discitis - Continue meningitic doses of Vancomycin, Rocephin - ML antibiotic regimen should cover for right hand cellulitis/thrombophlebitis - ID Dr. Hernandez. LP findings consistent with bacterial meningitis - CSF cx neg to date, but LP was done after 24 hours on ABX - MRI spine, [address] abd shows ? L2-L3 discitis. Biopsy ordered HEME: - Leukocytosis from sepsis. Monitor CBC, CMP ENDO: - Electrolyte replacement per protocol PROPH: - Bilateral lower extremity SCDs. Lovenox- 40 mg sq daily-holding for invasive procedures, Famotidine LINES: - Utilize peripheral IVs, central line if needed CC time 45 min Critically ill with severe sepsis and ongoing bacteremia with MRSA. Evidence of L2-L3 discitis and large pleural effusions. Intubated for respiratory failure and facilitate biopsy. Geovany Davila MD May 27, 2017 08:26
[2017-05-27] MEDS ORDERED: FUROSEMIDE 20 MG/2 ML VIAL IV PUSH ONE (08:30)
[2017-05-27] MEDS: SODIUM CHLORIDE 0.9% FLUSH 10 ML FLUSH IV FLUSH SCH ×2 (08:31→20:48)
[2017-05-27] MEDS: cefTRIAXone INJ 2,000 MG in SODIUM CHLORIDE 0.9% INJ 100 ML IV SCH (08:31)
[2017-05-27] MEDS: DOCUSATE SODIUM 50 MG/SENNA 8.6 MG TAB PO SCH ×2 (08:32→20:48)
[2017-05-27] MEDS: CHLORHEXIDINE 0.12% (ORAL KIT) 15 ML CUP MT SCH ×2 (08:32→19:43)
[2017-05-27] MEDS: POTASSIUM CHLORIDE 25 MEQ EFFERVESCENT TAB PO SCH (09:00)
[2017-05-27] MEDS ORDERED: SODIUM CHLORIDE 0.9% INJ 10 ML ONE (11:01)
--- NOTE | 2017-05-27 11:23 | PD.RAD ---
Post Procedure Progress Note Pre Procedure Diagnosis: (1) Lower back pain (2) Substance abuse Post Procedure Diagnosis: (1) Substance abuse (2) Lower back pain Procedure Date: May 27, 2017 Supervising Radiologist: Armando Ennis JR Proceduralist/Assist: Leilani Wright, RT(R)(), Aramis Banuelos RT(R) Anesthesia: Other Plan of Activity Patient to Unit: Critical Care Patient Condition: Fair See PACS Report for procedural detail/treatment Spinal Procedure Disc Aspiration L2-L3 Findings: L2-3 disc aspiration yielded no fluid. 5mL of sterile saline instilled with 0.1mL return. Sent for cx. Jr. Raymon,Armando Gao MD May 27, 2017 11:23
--- NOTE | 2017-05-27 12:02 | RADRPT ---
EXAM DATE/TIME: 05/27/2017 12:01 [facility] COMPARISON: No previous studies available for comparison. INDICATIONS : Patient with a history of L2/3 Discitis. MEDICAL HISTORY : IV drug abuse Arthritis Anxiety SURGICAL HISTORY : None ENCOUNTER: Initial ACUITY: 4 - 6days PAIN SCORE: Non-responsive FLUORO TIME: 1.8 minutes IMAGE SERIES: 3 DEVICE(S): 1.) 22 gauge 5" spinal needle Core specimen(s) was obtained and submitted to laboratory for pathologic evaluation. PROCEDURE : 1. Fluoroscopically guided disc aspiration. 2. Conscious sedation with continuous EKG and Oximetry monitoring. The risks, benefits and alternatives to the procedure were explained and verbal and written consent w as obtained. The site was prepped in sterile fashion. Full sterile technique was used, including cap, mask, steri le gloves and gown and a large sterile sheet. Hand hygiene and 2% chlorhexidine and/or betadine/alco hol prep was utilized per protocol for cutaneous antisepsis. The skin and subcutaneous tissues were infiltrated with local anesthetic solution. With fluoroscopic guidance and utilizing a right posterior oblique approach a 22 gauge spinal needle was passed into the L2-L3 disc space. Aspiration yielded no fluid. 5 mL of sterile saline was therefo re instilled and aspiration returned a 0.1 mL. Conscious sedation was performed with the prescribed dosages and duration as above in the presence of an independent trained radiology nurse to assist in the monitoring of the patient. EKG and oximetry remained stable throughout the procedure. CONCLUSION: Uncomplicated L2-L3 disc aspiration as above. Armando Ennis Jr., MD on May 27, 2017 at 11:57 Board Certified Radiologist. This report was verified electronically.
--- NOTE | 2017-05-27 12:33 | PD.PROCEDR ---
Procedure Note Procedure Procedure: Ultrasound-guided left pigtail chest tube placement Indication: large left pleural effusion, MRSA bacteremia Informed consent was obtained from the patient's daughter. A time-out was completed verifying correct patient, procedure, site, positioning, and special equipment if applicable. The patient was positioned appropriately for chest tube placement. US sound was used to jodee the insertion site. The patients left chest was prepped and draped in sterile fashion. 1% Lidocaine was used to anesthetize the surrounding skin area. A small skin incision was made at the insertion site. 18 G access needle was introduced into the pleural fluid and, pleural fluid was withdrawn. Syringe was removed and a guidewire was placed through the access needle. After this the access needle was removed, a dilator was used to dilate the track. Using Seldinger technique 10 [place] pigtail catheter was inserted into the pleural space. 50 ml Pleural fluid was collected for lab studies. Pleural fluid appeared cloudy, slightly yellow tinged, initial output was 650 mL after connection to the PleuroVac and -40 wall suction. A chest x-ray is pending at this time. Estimated Blood Loss: <3 ml The patient tolerated the procedure well and there were no complications. Geovany Davila MD May 27, 2017 12:33
[2017-05-27] MEDS: THIAMINE INJ 100 MG in SODIUM CHLORIDE 0.9% INJ 100 ML IV SCH (12:41)
--- NOTE | 2017-05-27 13:24 | RADRPT ---
EXAM DATE/TIME: 05/27/2017 13:04 [facility] COMPARISON: CHEST SINGLE AP, May 27, 2017, 4:48. INDICATIONS : Post chest tube placement. MEDICAL HISTORY : None. SURGICAL HISTORY : None. ENCOUNTER: Subsequent ACUITY: 1 day PAIN SCORE: Non-responsive. LOCATION: Bilateral chest FINDINGS: A single portable frontal view the chest shows interval placement of a small caliber chest tube on th e left. There is a kink involving the catheter proximal to the distal sideholes. Tip of endotracheal tube 3 cm proximal to rhona. Nasogastric tube courses off the inferior margin of the film. Parenchym al opacity remains within the right lung base. Minimal linear atelectasis within the left base. No pn eumothorax. Heart is normal in size. CONCLUSION: 1. Interval left thoracostomy tube placement. There is a kink involving the catheter proximal to the distal sideholes which could reduce or completely obstruct the drainage capability of the tube. 2. Mild left basilar atelectasis. 3. Unchanged right lower lobe infiltrate/effusion. Armando Ennis Jr., MD on May 27, 2017 at 13:19 Board Certified Radiologist. This report was verified electronically.
[2017-05-27 13:38] LABS: TOTAL PROTEIN,PLEURAL FLUID 1.7 GM/DL
[2017-05-27] MEDS: POTASSIUM CHLOR 20 MEQ PREMIX 100 ML IV PRN ×2 (14:13→16:55)
[2017-05-27 14:36] LABS: PLEURAL FLUID LYMPHS 7 %; PLEURAL FLUID MESOTHELIAL 3 %; PLEURAL FLUID MONOS 5 %; PLEURAL FLUID POLYS (SEGS) 85 %; PLEURAL FLUID RBC 7155 /MM3 (0-0); PLEURAL FLUID WBC 1879 /MM3 (0-10)
--- NOTE | 2017-05-27 14:46 | HHI.IDPN ---
Note Infectious Disease Note Patient on the vent. Post L2-3 disc space aspirate. Had left thoracentesis. Sedated. Afebrile. Blood culture has MRSA 05/25, MRSA 05/22. CSF culture no growth. Patient admitted to hospital with altered mental status. The patient was evaluated in the emergency department and he was complaining of lower back pain. The patient had positive, screen of the urine for cocaine. PAST MEDICAL HISTORY: 1. Arthritis 2. Anxiety. 3. Substance abuse. ALLERGIES NO KNOWN DRUG ALLERGIES. MEDICATIONS 1. Vancomycin. 2. Ceftriaxone. Current Medications Medications (Trade) Dose Ordered Sig/Frandy Route PRN Reason Start Time Stop Time Status Last Admin Dose Admin Sodium Chloride (NS Flush) 2 ml UNSCH PRN IV FLUSH FLUSH AFTER USING IV ACCESS 05/22/17 06:15 Sodium Chloride (NS Flush) 2 ml BID IV FLUSH 05/22/17 09:00 05/27/17 08:31 Ondansetron HCl (Zofran Inj) 4 mg Q6H PRN IVP NAUSEA OR VOMITING 05/22/17 06:15 Acetaminophen (Tylenol) 650 mg Q6H PRN PO FEVER 05/22/17 06:15 Senna/Docusate Sodium (Sabrina-Colace) 1 tab BID PO 05/22/17 09:00 Magnesium Hydroxide (Milk Of Magnesia Liq) 30 ml Q12H PRN PO Mild constipation 05/22/17 06:15 Sennosides (Senokot) 17.2 mg Q12H PRN PO Moderate constipation 05/22/17 06:15 Bisacodyl (Dulcolax Supp) 10 mg DAILY PRN RECTAL SEVERE CONSITIPATION 05/22/17 06:15 Lactulose (Lactulose Liq) 30 ml DAILY PRN PO SEVERE CONSITIPATION 05/22/17 06:15 Flumazenil (Romazicon Inj) 0.2 mg Q1M PRN IV PUSH SEE LABEL COMMENTS 05/22/17 11:30 Lorazepam (Ativan) 1 mg Q4H PRN PO CIWA 8 - 10 05/22/17 11:30 Lorazepam (Ativan) 2 mg Q2H PRN PO CIWA 11-14 05/22/17 11:30 05/25/17 19:19 Thiamine HCl 100 mg/Sodium Chloride 101 ml @ 101 mls/hr DAILY IV 05/22/17 13:00 05/27/17 12:41 Albuterol/ Ipratropium (Duoneb Neb) 1 ampule Q2HR NEB PRN NEB SOB/WHEEZING 05/22/17 12:00 Diltiazem HCl 125 mg/Sodium Chloride 125 ml @ 5 mls/hr TITRATE PRN IV Tachycardia 05/22/17 16:00 05/26/17 22:30 Pharmacy Profile Note 0 ml @ 0 mls/hr UNSCH OTHER 05/23/17 07:30 Ceftriaxone Sodium 2000 mg/ Sodium Chloride 100 ml @ 200 mls/hr Q12H IV 05/23/17 08:15 05/27/17 08:31 Haloperidol Lactate (Haldol Inj) 5 mg Q4H PRN IV agitation 05/24/17 08:15 05/25/17 23:08 Potassium Chloride 100 ml @ 50 mls/hr Q2H PRN IV For Potassium 2.8 - 3.2 mEq/L 05/24/17 08:15 Potassium Chloride 100 ml @ 50 mls/hr Q2H PRN IV For Potassium 2.8 - 3.2 mEq/L 05/24/17 08:15 05/25/17 08:00 Potassium Bicarb/ Potassium Chloride (K-Lyte Cl Eff) 50 meq UNSCH PRN PO For Potassium 3.3 - 3.5 mEq/L 05/24/17 08:15 05/25/17 19:20 Potassium Chloride 100 ml @ 25 mls/hr UNSCH PRN IV For Potassium 3.3 - 3.5 mEq/L 05/24/17 08:15 Potassium Chloride 100 ml @ 50 mls/hr Q2H PRN IV For Potassium 3.3 - 3.5 mEq/L 05/24/17 08:15 05/27/17 14:13 Magnesium Sulfate 4 gm/Sodium Chloride 100 ml @ 50 mls/hr UNSCH PRN IV For Magnesium 0.9 - 1.1 mg/dL 05/24/17 08:15 Magnesium Oxide (Mag-Ox) 800 mg UNSCH PRN PO For Magnesium 1.2 - 1.6 mg/dL 05/24/17 08:15 Magnesium Sulfate 2 gm/Sodium Chloride 100 ml @ 50 mls/hr UNSCH PRN IV For Magnesium 1.2 - 1.6 mg/dL 05/24/17 08:15 Potassium Phosphate (K-Phos) 2,000 mg Q4H PRN PO For Phosphorus < 2.5 mg/dL 05/24/17 08:15 Sodium Phosphate 30 mmol/Sodium Chloride 250 ml @ 42 mls/hr UNSCH PRN IV For Phosphorus < 2.5 mg/dL 05/24/17 08:15 Potassium Phosphate (K-Phos) 2,000 mg UNSCH PRN PO/TUBE SEE LABEL COMMENTS 05/24/17 08:15 Potassium Phosphate 30 mmol/ Sodium Chloride 260 ml @ 42 mls/hr UNSCH PRN IV SEE LABEL COMMENTS 05/24/17 08:15 05/26/17 13:23 Albuterol/ Ipratropium (Duoneb Neb) 1 ampule Q6HR NEB NEB 05/24/17 16:00 05/27/17 09:23 Chlordiazepoxide (Librium) 25 mg Q6H PRN PO WITHDRAWAL 05/26/17 06:45 Enoxaparin Sodium (Lovenox Inj) 40 mg Q24H SQ 05/26/17 09:00 Future Hold 05/26/17 08:08 Morphine Sulfate (Morphine Inj) 4 mg Q3H PRN IV PUSH pain 5-10 05/26/17 09:30 05/26/17 13:20 Hydralazine HCl (Apresoline Inj) 20 mg Q6H PRN IV PUSH SYS BP GREATER THAN 170 MMHG 05/26/17 13:00 05/26/17 13:21 Vancomycin HCl 1500 mg/Sodium Chloride 515 ml @ 257.5 mls/ hr Q12H IV 05/26/17 23:00 05/26/17 23:00 Miscellaneous Information SPECIFIC LAB TO BE DRAWN:CONNIEO TROUGH DATE TO BE DRFeliz.. ONCE ONCE .XX 05/28/17 10:45 05/28/17 10:46 Chlorhexidine Gluconate (Peridex 0.12% Liq) 15 ml BID@08,20 MT 05/26/17 20:00 05/27/17 08:32 Propofol 100 ml @ 2.379 mls/ hr TITRATE PRN IV SEDATION 05/26/17 15:15 05/27/17 12:47 Fentanyl Citrate 250 ml @ 5 mls/hr TITRATE PRN IV SEDATION 05/26/17 15:15 05/27/17 07:17 Metoprolol Tartrate (Lopressor Inj) 2.5 mg Q6H IV PUSH 05/26/17 22:00 05/27/17 08:55 Dextrose (D50w (Vial) Inj) 50 ml UNSCH PRN IV PUSH HYPOGLYCEMIA-SEE COMMENTS 05/27/17 00:45 Glucagon (Glucagon Inj) 1 mg UNSCH PRN OTHER HYPOGLYCEMIA-SEE COMMENTS 05/27/17 00:45 Insulin Human Regular (NovoLIN R SUPPLEMENTAL SCALE) 1 Q4HR SQ 05/27/17 04:00 Potassium Bicarb/ Potassium Chloride (K-Lyte Cl Eff) 25 meq DAILY PO 05/27/17 09:00 Rifampin 600 mg/ Sodium Chloride 100 ml @ 100 mls/hr Q24H IV 05/27/17 15:00 Dextrose/Sodium Chloride 1,000 ml @ 100 mls/hr Q10H IV 05/27/17 14:15 UNV OBJECTIVE: Vital Signs Date Time Temp Pulse Resp B/P (MAP) Pulse Ox O2 Delivery O2 Flow Rate FiO2 05/26/17 14:22 162 181/93 05/26/17 09:20 98 Nasal Cannula 2.00 05/26/17 04:00 98.5 114 25 161/89 (113) 97 05/26/17 00:00 98.9 81 26 133/72 (92) 95 05/25/17 21:27 98 Nasal Cannula 2.00 05/25/17 21:00 95 Nasal Cannula 2.00 05/25/17 20:24 147 150/89 05/25/17 20:00 99.1 102 25 157/80 (105) 99 05/25/17 16:00 99.7 108 24 197/109 (138) 96 Vital Signs Date Time Temp Pulse Resp B/P (MAP) Pulse Ox O2 Delivery O2 Flow Rate FiO2 05/25/17 10:27 100 Nasal Cannula 4.00 05/25/17 04:00 98.9 93 27 139/84 (102) 95 05/25/17 00:00 100.0 103 28 148/96 (113) 93 05/24/17 21:39 95 Nasal Cannula 2.00 05/24/17 20:00 99.7 92 25 161/92 (115) 97 05/24/17 20:00 98 Nasal Cannula 2.00 05/24/17 16:00 98.1 78 21 114/72 (86) 99 05/24/17 12:00 99.3 74 21 119/69 (86) 99 Laboratory Tests Test 05/25/17 07:19 White Blood Count 13.1 TH/MM3 Red Blood Count 3.61 MIL/MM3 Hemoglobin 11.4 GM/DL Hematocrit 33.9 % Mean Corpuscular Volume 94.0 FL Mean Corpuscular Hemoglobin 31.6 PG Mean Corpuscular Hemoglobin Concent 33.6 % Red Cell Distribution Width 14.3 % Platelet Count 84 TH/MM3 Mean Platelet Volume 8.6 FL Neutrophils (%) (Auto) 79.0 % Lymphocytes (%) (Auto) 6.5 % Monocytes (%) (Auto) 12.8 % Eosinophils (%) (Auto) 1.4 % Basophils (%) (Auto) 0.3 % Neutrophils # (Auto) 10.3 TH/MM3 Lymphocytes # (Auto) 0.9 TH/MM3 Monocytes # (Auto) 1.7 TH/MM3 Eosinophils # (Auto) 0.2 TH/MM3 Basophils # (Auto) 0.0 TH/MM3 CBC Comment AUTO DIFF Differential Total Cells Counted 100 Neutrophils % (Manual) 76 % Band Neutrophils % 4 % Lymphocytes % 7 % Monocytes % 11 % Neutrophils # (Manual) 10.7 TH/MM3 Metamyelocytes 1 % Myelocytes 1 % Differential Comment FINAL DIFF MANUAL Platelet Estimate LOW Platelet Morphology Comment NORMAL Red Cell Morphology Comment NORMAL Laboratory Tests Test 05/25/17 07:19 05/25/17 13:25 05/26/17 11:25 Blood Urea Nitrogen 17 MG/DL Creatinine 0.79 MG/DL Random Glucose 119 MG/DL Calcium Level 7.8 MG/DL Sodium Level 146 MEQ/L Potassium Level 3.2 MEQ/L 3.2 MEQ/L Chloride Level 115 MEQ/L Carbon Dioxide Level 24.1 MEQ/L Anion Gap 7 MEQ/L Estimat Glomerular Filtration Rate 98 ML/MIN Phosphorus Level 1.7 MG/DL 2.0 MG/DL Magnesium Level 2.0 MG/DL 2.1 MG/DL Microbiology Date/Time Source Procedure Growth Status 05/25/17 05:25 Blood Peripheral Aerobic Blood Culture - Preliminary NO GROWTH IN 1 DAY Resulted 05/25/17 05:25 Anaerobic Blood Culture - Preliminary Gram Positive Cocci Resulted 05/25/17 05:15 Blood Peripheral Aerobic Blood Culture - Preliminary Gram Positive Cocci Resulted 05/25/17 05:15 Blood Peripheral Anaerobic Blood Culture - Preliminary NO GROWTH IN 1 DAY Resulted IMAGING: Chest X-Ray 05/27/17 0600 Signed Impressions: Service Date/Time: Saturday, May 27, 2017 04:48 - CONCLUSION: Diffuse increase density likely representing edema which appears worse. Some degree of effusion needs to be considered especially on the left. Giovanni Gomez MD Needle Biopsy/Aspiration X-Ray 05/27/17 0000 Signed Impressions: Service Date/Time: Saturday, May 27, 2017 12:01 - CONCLUSION: Uncomplicated L2-L3 disc aspiration as above. Armando Ennis Jr., MD Chest X-Ray 05/27/17 0000 Signed Impressions: Service Date/Time: Saturday, May 27, 2017 13:04 - CONCLUSION: 1. Interval left thoracostomy tube placement. There is a kink involving the catheter proximal to the distal sideholes which could reduce or completely obstruct the drainage capability of the tube. 2. Mild left basilar atelectasis. 3. Unchanged right lower lobe infiltrate/effusion. Armando Ennis Jr., MD Chest CT 05/26/17 0000 Signed Impressions: Service Date/Time: Friday, May 26, 2017 10:55 - CONCLUSION: Moderate sized bilateral pleural effusions with small areas of patchy consolidation as well as passive atelectasis. This is a new finding from the prior chest x-ray. Noncardiogenic pulmonary edema versus infectious etiology. Armando Ennis Jr., MD Abdomen/Pelvis CT 05/26/17 0000 Signed Impressions: Service Date/Time: Friday, May 26, 2017 10:55 - CONCLUSION: Definite retroperitoneal inflammation around the abdominal aorta as well as extensive small lymph nodes throughout the retroperitoneum. There is also free fluid in both paracolic gutters right greater than left. I was initially concerning about a possible discitis at L2-3 with some cystic change along the endplates, particularly L2-3. Large bilateral pleural effusion with passive atelectasis. Sean Brown MD Upper Extremity Ultrasound 05/25/17 0000 Signed Impressions: Service Date/Time: Thursday, May 25, 2017 19:27 - CONCLUSION: Nonocclusive thrombus of the cephalic and basilic veins without evidence of proximal propagation. Armando Peterson MD Thoracic Spine MRI 05/24/17 0000 Signed Impressions: Service Date/Time: Wednesday, May 24, 2017 09:12 - CONCLUSION: 1. Minimal disc osteophyte complexes at T7-8, T8-9 and T9-10. 2. No spinal stenosis, focal disc herniation or significant neural foraminal narrowing. 3. No enhancing abscess collection. Abilio Eastman MD Lumbar Spine MRI 05/24/17 0000 Signed Impressions: Service Date/Time: Wednesday, May 24, 2017 09:12 - CONCLUSION: 1. Mild spinal stenosis and mild to moderate bilateral narrowing at L2-3, L3-4 and L4- 5. 2. Mild spinal stenosis and mild bilateral foraminal narrowing at L1-2. 3. Diffuse degenerative disease throughout the lumbar spine. 4. No evidence of enhancing abscess. Abilio Eastman MD Cervical Spine MRI 05/24/17 0000 Signed Impressions: Service Date/Time: Wednesday, May 24, 2017 09:12 - CONCLUSION: 1. Mild bilateral foraminal narrowing at C3-4, C4-5, C5-6 and C6-7. 2. No enhancing abscess. 3. Reversal of the normal cervical lordosis. 4. Diffuse cervical spondylosis from C3-C7. Abilio Eastman MD Brain MRI 05/24/17 0000 Signed Impressions: Service Date/Time: Wednesday, May 24, 2017 09:12 - CONCLUSION: 1. Mild periventricular white matter small vessel ischemic changes are noted bilaterally. 2. No acute infarct, acute hemorrhage, mass effect or extra- axial fluid collections. 3. No abnormal enhancing mass lesion. Abilio Eastman MD Head CT 05/22/17 0443 Signed Impressions: Service Date/Time: Monday, May 22, 2017 05:16 - CONCLUSION: No acute intracranial findings. Scott Morfin MD Chest X-Ray 05/22/17 0443 Signed Impressions: Service Date/Time: Monday, May 22, 2017 05:23 - CONCLUSION: No acute cardiopulmonary disease identified. Scott Morfin MD PHYSICAL EXAM. GENERAL: On vent. HEENT: The head is atraumatic. No icterus. NECK: No swelling. No adenopathy. LUNGS: Decreased breath sounds. HEART: Tachycardic. S1-S2. No audible murmurs or rubs or gallops. ABDOMEN: Bowel sounds present, soft, unable to appreciate tenderness. GENITOURINARY: Normal genitalia. EXTREMITIES: No clubbing or cyanosis. Both hands with edema at the dorsum of the hands. There is erythema at the dorsum of the right hand. No splinter hemorrhages at the nail beds. No calf tenderness appreciated. No palpable cords. SKIN: No diffuse rash. NEUROLOGIC: Unable to assess. PSYCHIATRIC: Psych unable to assess. IMPRESSION 1. Abnormal cerebrospinal fluid suggesting meningitis and very likely bacterial meningitis. CSF culture has no growth. 2. Bacteremia MRSA. Unclear etiology. ? related to the back pain. 3. discitis lumbar spine L 1 -2. Extensive small lymph nodes in the abdomen ? etiology. May not be related to infection. 4. Positive toxicology screen for cocaine. RECOMMENDATIONS 1. Stop ceftriaxone. 2. Continue Vancomycin. Trough low. Needs higher trough. 3. Add Daptomycin. 4. Stop Rifampin. Interaction with Cardizem levels. 4. Monitor spinal aspirate cultures. 5. Follow repeat blood cultures. 6. Change isolation to contact. Giovanni Hernandez MD May 27, 2017 14:46
[2017-05-27] MEDS ORDERED: RIFAMPIN INJ 600 MG in SODIUM CHLORIDE 0.9% INJ 100 ML IV SCH (15:00)
[2017-05-27] MEDS: hydrALAZINE HCL 20 MG/ML VIAL IV PUSH PRN (15:11)
[2017-05-27] MEDS: DILTIAZEM INJ 125 MG in SODIUM CHLORIDE 0.9% INJ 100 ML IV PRN (15:12)
[2017-05-27] MEDS: DEXT 5%-NACL 0.45% 1000 ML INJ 1,000 ML IV SCH (15:56)
--- NOTE | 2017-05-27 16:25 | PD.PROCEDR ---
Procedure Note Procedure Procedure: Ultrasound-guided right pigtail chest tube placement Indication: large right pleural effusion, MRSA bacteremia Informed consent was obtained from the patient's daughter. A time-out was completed verifying correct patient, procedure, site, positioning, and special equipment if applicable. The patient was positioned appropriately for chest tube placement. US sound was used to jodee the insertion site. The patients right chest was prepped and draped in sterile fashion. 1% Lidocaine was used to anesthetize the surrounding skin area. A small skin incision was made at the insertion site. 18 G access needle was introduced into the pleural fluid and, pleural fluid was withdrawn. Syringe was removed and a guidewire was placed through the access needle. The access needle was removed, a dilator was used to dilate the track. Using Seldinger technique 10 Green[place]ic pigtail catheter was inserted into the pleural space. Again 50 ml Pleural fluid was collected for lab studies. Pleural fluid appeared yellow tinged, but free flowing initial output was 700 mL after connection to the PleuroVac and -40 wall suction. A chest x-ray is pending at this time. Estimated Blood Loss: <1 ml The patient tolerated the procedure well and there were no complications. Geovany Davila MD May 27, 2017 16:25
--- NOTE | 2017-05-27 16:30 | PD.PROCEDR ---
Central Line Procedure REASON FOR PROCEDURE Central venous access PROCEDURE PERFORMED Central line placement: Left subclavian central line CONSENT Informed consent for procedure was obtained from daughter. The risks and benefits of the procedure were discussed to include but limited to bleeding, clot formation, infection, and even . ANESTHESIA Local injection of 1% Lidocaine DESCRIPTION OF THE PROCEDURE The patient was placed in supine, mild Trendelenburg position. The area was exposed and cleansed with ChloraPrep, times two. Large sterile drape was used to cover the patient, with the site exposed, under sterile conditions including cap, face mask, sterile gown, and sterile gloves. On single attempt, the introducer needle was inserted with negative pressure in syringe and venous flash was obtained. The guide wire was then advanced without any restriction and the needle was removed. The dilator was used without any complications. Using Seldinger technique the 20 CM 7F triple lumen catheter was advanced over the guide wire to a depth of 18 centimeters. The guide wire was removed. All ports were aspirated with dark venous blood return and flushed easily with sterile saline. All ports were capped. Antibiotic disc was placed around central line at puncture site. The central line was secured to the skin with two interrupted 2.0 silk sutures. The area was bandaged with sterile see- through central line bandage. COMPLICATIONS: No apparent complications ESTIMATED BLOOD LOSS: Less than 1 cc. Geovany Davila MD May 27, 2017 16:30
[2017-05-27] MEDS: VANCOMYCIN 1,500 MG/NS 500 ML IV SCH ×4 (17:04→22:12)
--- NOTE | 2017-05-27 17:13 | RADRPT ---
EXAM DATE/TIME: 05/27/2017 16:41 [facility] COMPARISON: CHEST SINGLE AP, May 27, 2017, 13:04. INDICATIONS : Right chest tube placement and subclavian line placement. MEDICAL HISTORY : None. SURGICAL HISTORY : None. ENCOUNTER: Subsequent ACUITY: 1 day PAIN SCORE: Non-responsive. LOCATION: Bilateral chest FINDINGS: Stable ETT and NGT coursing to the GE junction. Interval placement of left subclavian central line. T here is also a stable left-sided chest tube in place again, sharply angulated at the pigtail. Interva l placement of a right-sided chest tube in good position. Near interval resolution of right-sided ple ural effusion with minimal residual airspace disease noted in the lower lobes bilaterally. Cardiomedi astinal contours are stable. Remainder of the exam is unchanged. CONCLUSION: 1. Interval placement left subclavian central line without pneumothorax. 2. Stable left-sided chest tube which remains sharply angulated at the pigtail. 3. Interval placement of right sided chest tube in good position. Near resolution of right pleural ef fusion. 4. Minimal bilateral lower lobe airspace disease, likely atelectasis. Michel Dawn MD on May 27, 2017 at 17:09 Board Certified Radiologist. This report was verified electronically.
[2017-05-27 17:51] LABS: TOTAL PROTEIN,PLEURAL FLUID 1.6 GM/DL
[2017-05-27] MEDS ORDERED: DAPTOmycin INJ 500 MG in SODIUM CHLORIDE 0.9% INJ 100 ML IV SCH (18:00)
[2017-05-27 18:33] LABS: PLEURAL FLUID HISTIOCYTES 2 %; PLEURAL FLUID LYMPHS 5 %; PLEURAL FLUID MESOTHELIAL 2 %; PLEURAL FLUID POLYS (SEGS) 91 %; PLEURAL FLUID RBC 320 /MM3 (0-0); PLEURAL FLUID WBC 520 /MM3 (0-10)
[2017-05-27] MEDS ORDERED: DILTIAZEM HCL 25 MG/5 ML VIAL IV ONE (23:45)
[2017-05-28] VITALS (16 sets, daily range): BP systolic 99–169; BP diastolic 56–88; PULSE 74–121; RESP 16–20; TEMP 97.9–99.2; O2SAT 94–100
[2017-05-28] MEDS: DEXT 5%-NACL 0.45% 1000 ML INJ 1,000 ML IV SCH ×2 (00:23→16:59)
--- NOTE | 2017-05-28 01:55 | RADRPT ---
EXAM DATE/TIME: 05/28/2017 01:16 [facility] COMPARISON: CT BRAIN W/O CONTRAST, May 22, 2017, 5:16. INDICATIONS : New onset of unequal pupils. RADIATION DOSE: 43.73 CTDIvol (mGy) MEDICAL HISTORY : Non-responsive. SURGICAL HISTORY : Non-responsive. ENCOUNTER: Initial ACUITY: 1 day PAIN SCALE: Non-responsive LOCATION: cranial TECHNIQUE: Multiple contiguous axial images were obtained of the head. Using automated exposure control and adj ustment of the mA and/or kV according to patient size, radiation dose was kept as low as reasonably a chievable to obtain optimal diagnostic quality images. DICOM format image data is available electro nically for review and comparison. FINDINGS: CEREBRUM: The ventricles are normal for age. No evidence of midline shift, mass lesion, hemorrhage or acute in farction. No extra-axial fluid collections are seen. POSTERIOR FOSSA: The cerebellum and brainstem are intact. The 4th ventricle is midline. The cerebellopontine angle i s unremarkable. EXTRACRANIAL: The visualized portion of the orbits is intact. There is ethmoid and sphenoid sinus disease. SKULL: The calvaria is intact. No evidence of skull fracture. CONCLUSION: 1. No intracranial abnormality is seen. 2. Ethmoid and sphenoid sinus disease. Giovanni Gomez MD on May 28, 2017 at 1:51 Board Certified Radiologist. This report was verified electronically.
[2017-05-28] MEDS: PROPOFOL 1000 MG/100 ML INJ 100 ML IV PRN (02:47)
[2017-05-28] MEDS: fentaNYL DRIP 250 ML IV PRN (02:48)
[2017-05-28] MEDS: RESP: ALBUTEROL 2.5 MG/IPRATROPIUM 0.5 MG NEB (SCH) NEB ×4 (02:49→22:15)
[2017-05-28] MEDS: METOPROLOL TARTRATE 5 MG/5 ML VIAL IV PUSH SCH ×4 (04:00→22:00)
[2017-05-28] MEDS: INSULIN NovoLIN REGULAR SUPPLEMENTAL SCALE SQ SCH ×6 (04:00→20:00)
--- NOTE | 2017-05-28 05:24 | RADRPT ---
EXAM DATE/TIME: 05/28/2017 04:34 [facility] COMPARISON: CHEST SINGLE AP, May 27, 2017, 4:48. CHEST SINGLE AP, May 27, 2017, 13:04. CT THORAX W CO NTRAST, May 26, 2017, 10:55. CHEST SINGLE AP, May 27, 2017, 16:41. INDICATIONS : Respiratory disease. MEDICAL HISTORY : None. SURGICAL HISTORY : None. ENCOUNTER: Subsequent ACUITY: 4 - 6 days PAIN SCORE: Non-responsive. LOCATION: Bilateral chest FINDINGS: The ET tube and NG tube and left subclavian line are well placed. There are bilateral pleural drains in place. The heart size is normal. There is indistinctness of the central pulmonary vessels. CONCLUSION: Bilateral pleural drains. There is indistinctness of the central pulmonary vessels which may represent pulmonary venous hyperte nsion. Giovanni Gomez MD on May 28, 2017 at 5:19 Board Certified Radiologist. This report was verified electronically.
[2017-05-28 06:32] LABS: ALBUMIN 1.6 GM/DL (3.4-5.0); ALT (GPT) 31 U/L (12-78); AST (GOT) 23 U/L (15-37); BICARBONATE 23.4 MEQ/L (21.0-32.0); BLOOD UREA NITROGEN 18 MG/DL (7-18); CALCIUM 7.9 MG/DL (8.5-10.1); CHLORIDE 111 MEQ/L (98-107); CREATININE 0.94 MG/DL (0.60-1.30); GLOMERULAR FILTRATION RATE 80 ML/MIN (>89); GLUCOSE,RANDOM 126 MG/DL (74-106); MAGNESIUM 2.1 MG/DL (1.5-2.5); PHOSPHORUS 3.5 MG/DL (2.5-4.9); SODIUM (NA) 143 MEQ/L (136-145)
[2017-05-28 06:51] LABS: ALKALINE PHOSPHATASE 83 U/L (45-117); TOTAL BILIRUBIN ADULT 0.9 MG/DL (0.2-1.0); TOTAL PROTEIN 5.9 GM/DL (6.4-8.2)
--- NOTE | 2017-05-28 06:58 | HHI.CCPN ---
Subjective Remarks/Hospital Course Patient is a 66-year-old male with history of anxiety, arthritis, substance abuse who was initially admitted to hospitalist service with altered mentation, and back pain. Found to have UDS positive for cocaine. In the ED patient was anxious and combative. Initially admitted to the medical floor. WBC 14.2 with bandemia, lactic acid 3.4, BUN/abdomen 27/1.49. Patient was given IV fluids, started on Cefepime and vanc but he continued to become more combative restless and altered. Patient was moved to the ICU and I immediately evaluated him. Patient is in four point restraints. He was unable to communicate, very agitated. Heart rate is in 160s rhythm appears to be A. fib with RVR. Patient was given 2 mg IV morphine and 2 mg IV Versed. He still intermittently agitated and started him on Precedex infusion. Patient is intermittently apneic but wakes up to painful stimuli. Because of severe agitation and drug withdrawal I am unable to get any additional history 05/23/17: Patient remains confused but intermittently oriented to person and somewhat place. Continues to repeat same words (Echolalia). Blood cultures GPC 3/4 bottles. Echo pending, also will proceed with LP. Change Cefepime to Rocephin, Add ampicillin 05/24/17: Continues to be septic encephalopathy. Blood cultures growing MRSA. Echo pending, but circled limited I did not see any vegetation. LP findings consistent with bacterial meningitis 05/25/17: Remains critically ill but stable. Encephalopathy slowly improving, on weaning doses of Precedex. Afib with RVR, re start Cardizem. LEXIE today to rule out endocarditis. 05/26/17: Patient remains intermittently agitated tachycardic tachypneic. Weaned off Precedex. In A. fib with RVR Cardizem IV push and Lopressor IV push given without response. Start Cardizem infusion. CT shows bilateral large pleural effusions because of MRSA bacteremia needs to be drained. CT abdomen pelvis probable L2-L3 discitis. Discussed with radiologist Dr. Brown. Discussed with daughter, will proceed with intubation and possible biopsy 05/27/17: Patient was intubated yesterday for worsening agitation respiratory distress and also to facilitate L2-L3, CT-guided needle biopsy to rule out discitis. Blood cultures from 05/25/17 growing GPC most likely MRSA. Recommend bacteremia could be related to the L2-L3 discitis. Patient remains critically ill. Remains in atrial fibrillation with rate controlled. Cannot anticoagulate due to anticipated procedures (lumbar disc biopsy). Started on D5 1/2NS for hypoglycemia 05/28/17: Remains intubated sedated, not following commands while on sedation. CT of the head done overnight for unequal pupils-no acute findings. Had bilateral chest tubes placed yesterday 1.6 L output combined. Urine output excellent 3 L. Daptomycin added yesterday by ID, continue vancomycin. WBC count 16.4 today from 11.8. No fever. Repeat blood cultures sent today Objective Vital Signs Date Time Temp Pulse Resp B/P (MAP) Pulse Ox O2 Delivery O2 Flow Rate FiO2 05/28/17 04:05 100 40 05/28/17 04:00 99.0 88 16 117/56 (76) 05/27/17 19:00 Mechanical Ventilator 05/26/17 09:20 2.00 Result Diagram: 05/27/17 0441 05/28/[address] of the head, chest x-ray negative for acute findings Objective Remarks GENERAL: This is a well-nourished, well-developed patient, intubated sedated SKIN: Erythema, and warmth on dorsum of right hand HEAD: Atraumatic. Normocephalic. No temporal or scalp tenderness. EYES: Pupils equal round and reactive. ENT: Orotracheally intubated NECK: Trachea midline. No JVD or lymphadenopathy. Supple No neck stiffness CARDIOVASCULAR: NSR now, intermittent A fib RESPIRATORY: Bilateral course breath sounds and diminished at the bases. Bilateral pigtails with 1.6 L combined output since placement GASTROINTESTINAL: Abdomen soft, non-tender, nondistended. MUSCULOSKELETAL: Difficult to asses for back tenderness, due to altered mentation. Right hand dorsum is warm with erythema NEUROLOGICAL: Patient is intubated heavily sedated. Withdraws lower extremities to pain, does not follows commands. Pupils are equal round reactive Urinary Catheter: Yes Assessment to: Continue Vascular Central Line Catheter: Yes Assessment to: Continue Date of Insertion: May 27, 2017 Line: Central Venous Catheter Side: Left Location: Subclavian A/P Assessment and Plan ASSESSMENT: Bacterial meningitis Severe encephalopathy Probable L2-L3 discitis Persistent MRSA bacteremia, high grade Severe sepsis Acute Respiratory failure Atrial fibrillation with RVR Large bilateral pleural effusions s/p pigtail chest tube placement Hypoglycemia Substance abuse with severe withdrawal Acute kidney injury Lactic acidosis Acute rhabdomyolysis UDS positive for cocaine PLAN: NEURO: - Delirium and encephalopathy secondary to severe sepsis and drug withdrawal - Urine drug screen positive for cocaine, history of IV opiate abuse - Postintubation sedated with propofol and fentanyl - Start Precedex today and start vent weaning - Follow-up on lumbar disc biopsy - CIMT protocol once extubated. Continue thiamine - MRI brain no acute finding. MRI spine no evidence of abscess, but CT abdomen showed possible L2-L3 discitis RESP: - Intubated and placed on mechanical ventilation 05/26/17, due to respiratory distress agitation and also to facilitate biopsy procedure - DuoNeb scheduled q6 and every 2 hours when necessary, vent bundle - Moderate to large bilateral pleural effusions,s/p bilateral chest tube placement 05/27/17, 1.6 L output - After starting Precedex initiate weaning trial - Sputum culture pleural fluid culture negative to date CV: - D5-1/2NS for hypoglycemia, reduce to 30 ml per hour. Give IV Lasix 40 mg 1 - Trend lactic acid, now normalized - Currently atrial fibrillation controlled rate. Cardizem infusion- change to PO in 24 hours - Atrial fibrillation is most likely from drug withdrawal will not anticoagulate due to lumbar disc biopsy 05/27, and patient is a poor candidate for long anticoagulation due to alcohol and drug dependence - Start low-dose aspirin if okay with invasive radiology - 2-D echo NL EF, Dr. An consulted for LEXIE-negative for vegetation, clot GI: - Tube feeds with Jevity, hold for weaning trials. IV famotidine : - Monitor renal function closely. - Aggressive fluid resuscitation - Monitor CPK ID: - Severe sepsis with MRSA bacteremia. Probable L2-L3 discitis - Continue meningitic doses of Vancomycin, Rocephin. Daptomycin added 05/27 due to vanc DASHAWN 2 - ID Dr. Hernandez. LP findings consistent with bacterial meningitis - CSF cx neg to date, but LP was done after 24 hours on ABX - [address] abd shows ? L2-L3 discitis. f/u lumbar disc biopsy, culture HEME: - Leukocytosis from sepsis. Monitor CBC, CMP ENDO: - Electrolyte replacement per protocol PROPH: - Bilateral lower extremity SCDs. Lovenox 40 mg sq daily-restart if ok with IR, Famotidine LINES: - Utilize peripheral IVs, central line if needed CC time 35 min Critically ill with severe sepsis and ongoing bacteremia with MRSA. Evidence of L2-L3 discitis and large pleural effusions. Intubated for respiratory failure and facilitate biopsy. Increasing WBC count concerning. Follow-up on blood cultures to ensure clearance of bacteremia Geovany Davila MD May 28, 2017 06:58
[2017-05-28] MEDS ORDERED: DEXMEDETOMIDINE INJ 200 MCG in SODIUM CHLORIDE 0.9% INJ 50 ML IV PRN (07:00)
[2017-05-28 07:03] LABS: AUTOMATED NEUTROPHIL # 13.5 TH/MM3 (1.8-7.7); BASOPHIL % 0.2 % (0.0-2.0); EOSINOPHIL # 0.3 TH/MM3 (0-0.4); EOSINOPHIL % 1.9 % (0.0-4.0); HEMATOCRIT 33.4 % (39.0-51.0); HEMOGLOBIN 11.1 GM/DL (13.0-17.0); LYMPH % 7.2 % (9.0-44.0); LYMPHOCYTE # 1.2 TH/MM3 (1.0-4.8); MEAN CELL VOLUME 94.6 FL (80.0-100.0); MEAN CORPUSCULAR HEMOGLOBIN 31.6 PG (27.0-34.0); MEAN CORPUSCULAR HGB CONC 33.4 % (32.0-36.0); MEAN PLATELET VOLUME 8.8 FL (7.0-11.0); MONO % 8.6 % (0.0-8.0); MONOCYTE # 1.4 TH/MM3 (0-0.9); NEUT % 82.1 % (16.0-70.0); PLATELET COUNT 129 TH/MM3 (150-450); RED BLOOD COUNT 3.53 MIL/MM3 (4.50-5.90); RED CELL DISTRIBUTION WIDTH 14.4 % (11.6-17.2); WHITE BLOOD COUNT 16.4 TH/MM3 (4.0-11.0)
[2017-05-28] MEDS ORDERED: DEXMEDETOMIDINE INJ 1,000 MCG in SODIUM CHLOR 0.9% 250 ML INJ 240 ML IV PRN (07:30)
[2017-05-28] MEDS ORDERED: POTASSIUM CHLORIDE 25 MEQ EFFERVESCENT TAB PO ONE (07:30)
[2017-05-28] MEDS ORDERED: FUROSEMIDE 40 MG/4 ML VIAL IV PUSH ONE (07:30)
[2017-05-28] MEDS: CHLORHEXIDINE 0.12% (ORAL KIT) 15 ML CUP MT SCH ×2 (08:00→20:00)
[2017-05-28] MEDS: SODIUM CHLORIDE 0.9% FLUSH 10 ML FLUSH IV FLUSH SCH ×2 (08:37→21:00)
[2017-05-28] MEDS: THIAMINE INJ 100 MG in SODIUM CHLORIDE 0.9% INJ 100 ML IV SCH (08:37)
[2017-05-28] MEDS: DOCUSATE SODIUM 50 MG/SENNA 8.6 MG TAB PO SCH ×2 (08:37→21:00)
[2017-05-28] MEDS: POTASSIUM CHLORIDE 25 MEQ EFFERVESCENT TAB PO SCH (08:37)
[2017-05-28] MEDS: DILTIAZEM INJ 125 MG in SODIUM CHLORIDE 0.9% INJ 100 ML IV PRN ×2 (08:38→19:49)
[2017-05-28] MEDS: DILTIAZEM HCL 90 MG TAB PO SCH ×4 (09:00→21:00)
[2017-05-28] MEDS ORDERED: PHARMACY ORDERED LAB ONE (10:45)
[2017-05-28] MEDS: VANCOMYCIN 1,500 MG/NS 500 ML IV SCH ×2 (10:57)
--- NOTE | 2017-05-28 10:58 | HHI.IDPN ---
Note Infectious Disease Note Patient on the vent. Now on CPAP. Eyes open and thrashing around. Post L2-3 disc space aspirate. culture pending. Sedated. Afebrile. Has bilateral chest tubes. Blood culture has MRSA 05/25, MRSA 05/22. CSF culture no growth. WBC elevated. Patient admitted to hospital with altered mental status. The patient was evaluated in the emergency department and he was complaining of lower back pain. The patient had positive, screen of the urine for cocaine. PAST MEDICAL HISTORY: 1. Arthritis 2. Anxiety. 3. Substance abuse. ALLERGIES NO KNOWN DRUG ALLERGIES. MEDICATIONS 1. Vancomycin. 2. Daptomycin. Current Medications Medications (Trade) Dose Ordered Sig/Frandy Route PRN Reason Start Time Stop Time Status Last Admin Dose Admin Sodium Chloride (NS Flush) 2 ml UNSCH PRN IV FLUSH FLUSH AFTER USING IV ACCESS 05/22/17 06:15 Sodium Chloride (NS Flush) 2 ml BID IV FLUSH 05/22/17 09:00 05/28/17 08:37 Ondansetron HCl (Zofran Inj) 4 mg Q6H PRN IVP NAUSEA OR VOMITING 05/22/17 06:15 Acetaminophen (Tylenol) 650 mg Q6H PRN PO FEVER 05/22/17 06:15 Senna/Docusate Sodium (Sabrina-Colace) 1 tab BID PO 05/22/17 09:00 05/28/17 08:37 Magnesium Hydroxide (Milk Of Magnesia Liq) 30 ml Q12H PRN PO Mild constipation 05/22/17 06:15 Sennosides (Senokot) 17.2 mg Q12H PRN PO Moderate constipation 05/22/17 06:15 Bisacodyl (Dulcolax Supp) 10 mg DAILY PRN RECTAL SEVERE CONSITIPATION 05/22/17 06:15 Lactulose (Lactulose Liq) 30 ml DAILY PRN PO SEVERE CONSITIPATION 05/22/17 06:15 Flumazenil (Romazicon Inj) 0.2 mg Q1M PRN IV PUSH SEE LABEL COMMENTS 05/22/17 11:30 Lorazepam (Ativan) 1 mg Q4H PRN PO CIWA 8 - 10 05/22/17 11:30 Lorazepam (Ativan) 2 mg Q2H PRN PO CIWA 11-14 05/22/17 11:30 05/25/17 19:19 Thiamine HCl 100 mg/Sodium Chloride 101 ml @ 101 mls/hr DAILY IV 05/22/17 13:00 05/28/17 08:37 Albuterol/ Ipratropium (Duoneb Neb) 1 ampule Q2HR NEB PRN NEB SOB/WHEEZING 05/22/17 12:00 Diltiazem HCl 125 mg/Sodium Chloride 125 ml @ 5 mls/hr TITRATE PRN IV Tachycardia 05/22/17 16:00 05/28/17 08:38 Pharmacy Profile Note 0 ml @ 0 mls/hr UNSCH OTHER 05/23/17 07:30 Haloperidol Lactate (Haldol Inj) 5 mg Q4H PRN IV agitation 05/24/17 08:15 05/25/17 23:08 Potassium Chloride 100 ml @ 50 mls/hr Q2H PRN IV For Potassium 2.8 - 3.2 mEq/L 05/24/17 08:15 Potassium Chloride 100 ml @ 50 mls/hr Q2H PRN IV For Potassium 2.8 - 3.2 mEq/L 05/24/17 08:15 05/25/17 08:00 Potassium Bicarb/ Potassium Chloride (K-Lyte Cl Eff) 50 meq UNSCH PRN PO For Potassium 3.3 - 3.5 mEq/L 05/24/17 08:15 05/25/17 19:20 Potassium Chloride 100 ml @ 25 mls/hr UNSCH PRN IV For Potassium 3.3 - 3.5 mEq/L 05/24/17 08:15 Potassium Chloride 100 ml @ 50 mls/hr Q2H PRN IV For Potassium 3.3 - 3.5 mEq/L 05/24/17 08:15 05/27/17 16:55 Magnesium Sulfate 4 gm/Sodium Chloride 100 ml @ 50 mls/hr UNSCH PRN IV For Magnesium 0.9 - 1.1 mg/dL 05/24/17 08:15 Magnesium Oxide (Mag-Ox) 800 mg UNSCH PRN PO For Magnesium 1.2 - 1.6 mg/dL 05/24/17 08:15 Magnesium Sulfate 2 gm/Sodium Chloride 100 ml @ 50 mls/hr UNSCH PRN IV For Magnesium 1.2 - 1.6 mg/dL 05/24/17 08:15 Potassium Phosphate (K-Phos) 2,000 mg Q4H PRN PO For Phosphorus < 2.5 mg/dL 05/24/17 08:15 Sodium Phosphate 30 mmol/Sodium Chloride 250 ml @ 42 mls/hr UNSCH PRN IV For Phosphorus < 2.5 mg/dL 05/24/17 08:15 Potassium Phosphate (K-Phos) 2,000 mg UNSCH PRN PO/TUBE SEE LABEL COMMENTS 05/24/17 08:15 Potassium Phosphate 30 mmol/ Sodium Chloride 260 ml @ 42 mls/hr UNSCH PRN IV SEE LABEL COMMENTS 05/24/17 08:15 05/26/17 13:23 Enoxaparin Sodium (Lovenox Inj) 40 mg Q24H SQ 05/26/17 09:00 Future Hold 05/26/17 08:08 Hydralazine HCl (Apresoline Inj) 20 mg Q6H PRN IV PUSH SYS BP GREATER THAN 170 MMHG 05/26/17 13:00 05/27/17 15:11 Vancomycin HCl 1500 mg/Sodium Chloride 515 ml @ 257.5 mls/ hr Q12H IV 05/26/17 23:00 05/27/17 22:12 Chlorhexidine Gluconate (Peridex 0.12% Liq) 15 ml BID@08,20 MT 05/26/17 20:00 05/28/17 08:00 Dextrose (D50w (Vial) Inj) 50 ml UNSCH PRN IV PUSH HYPOGLYCEMIA-SEE COMMENTS 05/27/17 00:45 Glucagon (Glucagon Inj) 1 mg UNSCH PRN OTHER HYPOGLYCEMIA-SEE COMMENTS 05/27/17 00:45 Insulin Human Regular (NovoLIN R SUPPLEMENTAL SCALE) 1 Q4HR SQ 05/27/17 04:00 Potassium Bicarb/ Potassium Chloride (K-Lyte Cl Eff) 25 meq DAILY PO 05/27/17 09:00 05/28/17 08:37 Dextrose/Sodium Chloride 1,000 ml @ 30 mls/hr Q24H IV 05/27/17 15:00 05/28/17 00:23 Daptomycin 500 mg/ Sodium Chloride 100 ml @ 200 mls/hr Q24H IV 05/27/17 18:00 05/27/17 19:42 Albuterol/ Ipratropium (Duoneb Neb) 1 ampule Q6HR NEB NEB 05/27/17 22:00 05/28/17 08:49 Metoprolol Tartrate (Lopressor Inj) 5 mg Q6H IV PUSH 05/28/17 04:00 05/28/17 10:00 Diltiazem HCl (Cardizem) 90 mg QID PO 05/28/17 09:00 Dexmedetomidine HCl 1000 mcg/ Sodium Chloride 250 ml @ 3.92 mls/hr TITRATE PRN IV SEDATION 05/28/17 07:30 05/28/17 08:38 Morphine Sulfate (Morphine Inj) 2 mg Q3H PRN IV PUSH pain 5-10 05/28/17 09:30 OBJECTIVE: Vital Signs Date Time Temp Pulse Resp B/P (MAP) Pulse Ox O2 Delivery O2 Flow Rate FiO2 05/28/17 09:50 40 05/28/17 08:50 100 40 05/28/17 08:38 75 123/70 05/28/17 04:05 100 40 05/28/17 04:00 99.0 88 16 117/56 (76) 100 05/28/17 04:00 40 05/28/17 01:05 100 100 05/28/17 00:00 98.4 74 16 99/59 (72) 98 05/28/17 00:00 40 05/27/17 23:26 99 40 05/27/17 20:25 99 40 05/27/17 20:00 99.4 90 16 156/80 (105) 100 05/27/17 20:00 40 05/27/17 19:00 100 Mechanical Ventilator 40 05/27/17 16:31 97 40 05/27/17 16:00 98.9 100 19 113/61 (78) 93 05/27/17 16:00 50 05/27/17 15:12 19 191/93 05/27/17 13:23 95 40 05/27/17 12:00 99.1 102 16 190/100 (130) 93 05/27/17 12:00 50 Laboratory Tests Test 05/26/17 15:37 05/27/17 04:41 05/28/17 06:35 White Blood Count 13.8 TH/MM3 11.8 TH/MM3 16.4 TH/MM3 Red Blood Count 3.92 MIL/MM3 3.18 MIL/MM3 3.53 MIL/MM3 Hemoglobin 12.4 GM/DL 10.2 GM/DL 11.1 GM/DL Hematocrit 36.9 % 30.3 % 33.4 % Mean Corpuscular Volume 94.1 FL 95.0 FL 94.6 FL Mean Corpuscular Hemoglobin 31.7 PG 32.0 PG 31.6 PG Mean Corpuscular Hemoglobin Concent 33.7 % 33.6 % 33.4 % Red Cell Distribution Width 14.0 % 14.3 % 14.4 % Platelet Count 107 TH/MM3 112 TH/MM3 129 TH/MM3 Mean Platelet Volume 8.6 FL 9.3 FL 8.8 FL Neutrophils (%) (Auto) 82.1 % 77.4 % 82.1 % Lymphocytes (%) (Auto) 8.3 % 11.5 % 7.2 % Monocytes (%) (Auto) 8.5 % 9.3 % 8.6 % Eosinophils (%) (Auto) 0.6 % 1.5 % 1.9 % Basophils (%) (Auto) 0.5 % 0.3 % 0.2 % Neutrophils # (Auto) 11.3 TH/MM3 9.1 TH/MM3 13.5 TH/MM3 Lymphocytes # (Auto) 1.2 TH/MM3 1.4 TH/MM3 1.2 TH/MM3 Monocytes # (Auto) 1.2 TH/MM3 1.1 TH/MM3 1.4 TH/MM3 Eosinophils # (Auto) 0.1 TH/MM3 0.2 TH/MM3 0.3 TH/MM3 Basophils # (Auto) 0.1 TH/MM3 0.0 TH/MM3 0.0 TH/MM3 CBC Comment AUTO DIFF DIFF FINAL DIFF FINAL Differential Total Cells Counted 100 Neutrophils % (Manual) 83 % Band Neutrophils % 2 % Lymphocytes % 8 % Monocytes % 3 % Eosinophils % 3 % Neutrophils # (Manual) 11.9 TH/MM3 Myelocytes 1 % Differential Comment FINAL DIFF MANUAL Toxic Granulation 1+ Dohle Bodies PRESENT Platelet Estimate LOW Platelet Morphology Comment NORMAL Basophilic Stippling FAINT Acanthocytes OCC Laboratory Tests Test 05/26/17 11:25 05/27/17 00:35 05/27/17 04:41 05/28/17 01:40 Potassium Level 3.2 MEQ/L 3.7 MEQ/L 3.3 MEQ/L 3.7 MEQ/L Phosphorus Level 2.0 MG/DL 4.6 MG/DL 4.1 MG/DL Magnesium Level 2.1 MG/DL 2.1 MG/DL Blood Urea Nitrogen 20 MG/DL Creatinine 0.97 MG/DL Random Glucose 83 MG/DL Total Protein 5.4 GM/DL Albumin 1.5 GM/DL Calcium Level 7.6 MG/DL Alkaline Phosphatase 82 U/L Aspartate Amino Transf (AST/SGOT) 32 U/L Alanine Aminotransferase (ALT/SGPT) 36 U/L Total Bilirubin 0.8 MG/DL Sodium Level 146 MEQ/L Chloride Level 113 MEQ/L Carbon Dioxide Level 23.7 MEQ/L Anion Gap 9 MEQ/L Estimat Glomerular Filtration Rate 77 ML/MIN Test 05/28/17 05:22 Blood Urea Nitrogen 18 MG/DL Creatinine 0.94 MG/DL Random Glucose 126 MG/DL Total Protein 5.9 GM/DL Albumin 1.6 GM/DL Calcium Level 7.9 MG/DL Phosphorus Level 3.5 MG/DL Magnesium Level 2.1 MG/DL Alkaline Phosphatase 83 U/L Aspartate Amino Transf (AST/SGOT) 23 U/L Alanine Aminotransferase (ALT/SGPT) 31 U/L Total Bilirubin 0.9 MG/DL Sodium Level 143 MEQ/L Potassium Level 3.6 MEQ/L Chloride Level 111 MEQ/L Carbon Dioxide Level 23.4 MEQ/L Anion Gap 9 MEQ/L Estimat Glomerular Filtration Rate 80 ML/MIN Microbiology Date/Time Source Procedure Growth Status 05/28/17 05:22 Blood Peripheral Aerobic Blood Culture Pending Received 05/28/17 05:22 Blood Peripheral Anaerobic Blood Culture Pending Received 05/28/17 05:15 Blood Peripheral Aerobic Blood Culture Pending Received 05/28/17 05:15 Blood Peripheral Anaerobic Blood Culture Pending Received 05/27/17 15:45 Fluid Pleural Fluid Fungal Smear - Final NO FUNGAL ELEMENTS SEEN. Resulted 05/27/17 15:45 Fluid Pleural Fluid Fungal Culture Pending Resulted 05/27/17 15:45 Fluid Pleural Fluid Acid Fast Stain Pending Received 05/27/17 15:45 Fluid Pleural Fluid Mycobacterial Culture Pending Received 05/27/17 15:45 Fluid Pleural Fluid Gram Stain - Final Resulted 05/27/17 15:45 Fluid Pleural Fluid Body Fluid Culture Pending Resulted 05/27/17 12:30 Fluid Pleural Fluid Fungal Smear - Final NO FUNGAL ELEMENTS SEEN. Resulted 05/27/17 12:30 Fluid Pleural Fluid Fungal Culture Pending Resulted 05/27/17 12:30 Fluid Pleural Fluid Acid Fast Stain Pending Received 05/27/17 12:30 Fluid Pleural Fluid Mycobacterial Culture Pending Received 05/27/17 12:30 Fluid Pleural Fluid Gram Stain - Final Resulted 05/27/17 12:30 Fluid Pleural Fluid Body Fluid Culture Pending Resulted 05/27/17 11:05 Abscess Back Fungal Smear - Final NO FUNGAL ELEMENTS SEEN. Resulted 05/27/17 11:05 Abscess Back Fungal Culture Pending Resulted 05/27/17 11:05 Abscess Back Acid Fast Stain Pending Received 05/27/17 11:05 Abscess Back Mycobacterial Culture Pending Received 05/27/17 11:05 Abscess Back Gram Stain - Final Resulted 05/27/17 11:05 Abscess Back Wound Culture Pending Resulted IMAGING: Chest X-Ray 05/28/17 0600 Signed Impressions: Service Date/Time: May 04:34 - CONCLUSION: Bilateral pleural drains. There is indistinctness of the central pulmonary vessels which may represent pulmonary venous hypertension. Giovanni Gomez MD Head CT 05/28/17 0000 Signed Impressions: Service Date/Time: May 01:16 - CONCLUSION: 1. No intracranial abnormality is seen. 2. Ethmoid and sphenoid sinus disease. Giovanni Gomez MD Chest X-Ray 05/27/17 0600 Signed Impressions: Service Date/Time: Saturday, May 27, 2017 04:48 - CONCLUSION: Diffuse increase density likely representing edema which appears worse. Some degree of effusion needs to be considered especially on the left. Giovanni Gomez MD Needle Biopsy/Aspiration X-Ray 05/27/17 0000 Signed Impressions: Service Date/Time: Saturday, May 27, 2017 12:01 - CONCLUSION: Uncomplicated L2-L3 disc aspiration as above. Armando Ennis Jr., MD Chest X-Ray 05/27/17 0000 Signed Impressions: Service Date/Time: Saturday, May 27, 2017 13:04 - CONCLUSION: 1. Interval left thoracostomy tube placement. There is a kink involving the catheter proximal to the distal sideholes which could reduce or completely obstruct the drainage capability of the tube. 2. Mild left basilar atelectasis. 3. Unchanged right lower lobe infiltrate/effusion. Armando Ennis Jr., MD Chest CT 05/26/17 0000 Signed Impressions: Service Date/Time: Friday, May 26, 2017 10:55 - CONCLUSION: Moderate sized bilateral pleural effusions with small areas of patchy consolidation as well as passive atelectasis. This is a new finding from the prior chest x-ray. Noncardiogenic pulmonary edema versus infectious etiology. Armando Ennis Jr., MD Abdomen/Pelvis CT 05/26/17 0000 Signed Impressions: Service Date/Time: Friday, May 26, 2017 10:55 - CONCLUSION: Definite retroperitoneal inflammation around the abdominal aorta as well as extensive small lymph nodes throughout the retroperitoneum. There is also free fluid in both paracolic gutters right greater than left. I was initially concerning about a possible discitis at L2-3 with some cystic change along the endplates, particularly L2-3. Large bilateral pleural effusion with passive atelectasis. Sean Brown MD Upper Extremity Ultrasound 05/25/17 0000 Signed Impressions: Service Date/Time: Thursday, May 25, 2017 19:27 - CONCLUSION: Nonocclusive thrombus of the cephalic and basilic veins without evidence of proximal propagation. Armando Peterson MD Thoracic Spine MRI 05/24/17 0000 Signed Impressions: Service Date/Time: Wednesday, May 24, 2017 09:12 - CONCLUSION: 1. Minimal disc osteophyte complexes at T7-8, T8-9 and T9-10. 2. No spinal stenosis, focal disc herniation or significant neural foraminal narrowing. 3. No enhancing abscess collection. Abilio Eastman MD Lumbar Spine MRI 05/24/17 0000 Signed Impressions: Service Date/Time: Wednesday, May 24, 2017 09:12 - CONCLUSION: 1. Mild spinal stenosis and mild to moderate bilateral narrowing at L2-3, L3-4 and L4- 5. 2. Mild spinal stenosis and mild bilateral foraminal narrowing at L1-2. 3. Diffuse degenerative disease throughout the lumbar spine. 4. No evidence of enhancing abscess. Abilio Eastman MD Cervical Spine MRI 05/24/17 0000 Signed Impressions: Service Date/Time: Wednesday, May 24, 2017 09:12 - CONCLUSION: 1. Mild bilateral foraminal narrowing at C3-4, C4-5, C5-6 and C6-7. 2. No enhancing abscess. 3. Reversal of the normal cervical lordosis. 4. Diffuse cervical spondylosis from C3-C7. Abilio Eastman MD Brain MRI 05/24/17 0000 Signed Impressions: Service Date/Time: Wednesday, May 24, 2017 09:12 - CONCLUSION: 1. Mild periventricular white matter small vessel ischemic changes are noted bilaterally. 2. No acute infarct, acute hemorrhage, mass effect or extra- axial fluid collections. 3. No abnormal enhancing mass lesion. Abilio Eastman MD PHYSICAL EXAM. GENERAL: On vent. HEENT: The head is atraumatic. No icterus. NECK: No swelling. No adenopathy. LUNGS: Decreased breath sounds. HEART: Tachycardic. S1-S2. No audible murmurs or rubs or gallops. ABDOMEN: Bowel sounds present, soft, no tenderness appreciated. GENITOURINARY: Normal genitalia. EXTREMITIES: No clubbing or cyanosis. Both hands with edema at the dorsum of the hands. There is erythema still present at the dorsum of the right hand. No splinter hemorrhages at the nail beds. No calf tenderness appreciated. No palpable cords. SKIN: No diffuse rash. NEUROLOGIC: Unable to assess. PSYCHIATRIC: Psych unable to assess. IMPRESSION 1. Abnormal cerebrospinal fluid suggesting meningitis and very likely bacterial meningitis. CSF culture has no growth. 2. Bacteremia MRSA. Unclear etiology. ? related to the back pain. ? IV drug use. 3. Discitis lumbar spine L 1 -2. Extensive small lymph nodes in the abdomen ? etiology. May not be related to infection. 4. Positive toxicology screen for cocaine. RECOMMENDATIONS 1. Continue Daptomycin. 2. Continue Vancomycin. Trough low. Needs higher trough. 3. Monitor spinal aspirate cultures. 4. Monitor repeat blood cultures. 5. Follow pleural fluid culture. Addendum: Lumbar disc aspirate culture has MRSA (sensitivity pending). Vancomycin trough level now higher. Bacteremia not yet cleared per cultures. In light of meningitis/discitis I will continue the Vancomycin and stop the Daptomycin and watch for response. Aim for 15- 20 vanco trough. Giovanni Hernandez MD May 28, 2017 10:58
[2017-05-28] MEDS: MORPHINE SULFATE 2 MG/ML INJ IV PUSH PRN ×3 (13:17→22:19)
[2017-05-28] MEDS: hydrALAZINE HCL 20 MG/ML VIAL IV PUSH PRN (14:39)
[2017-05-28 14:50] LABS: AMYLASE BODY FLUID 16 U/L; AMYLASE BODY FLUID TYPE PLEURAL
[2017-05-28] MEDS ORDERED: DIGOXIN 0.5 MG/2 ML VIAL IV PUSH ONE (17:30)
[2017-05-29] VITALS (12 sets, daily range): BP systolic 151–172; BP diastolic 67–86; PULSE 84–114; RESP 20–31; TEMP 98.3–100.4; O2SAT 93–100
[2017-05-29] MEDS: LABETALOL HCL 100 MG/20 ML VIAL IV PRN ×4 (00:25→23:48)
[2017-05-29] MEDS: MORPHINE SULFATE 2 MG/ML INJ IV PUSH PRN ×7 (01:01→23:48)
[2017-05-29] MEDS: DILTIAZEM INJ 125 MG in SODIUM CHLORIDE 0.9% INJ 100 ML IV PRN (03:10)
[2017-05-29 03:51] LABS: HAEMOPHILUS FLU AG TYPE B Not Detected (Not Detected)
[2017-05-29] MEDS: METOPROLOL TARTRATE 5 MG/5 ML VIAL IV PUSH SCH ×4 (04:00→20:58)
[2017-05-29] MEDS: INSULIN NovoLIN REGULAR SUPPLEMENTAL SCALE SQ SCH ×6 (04:00→20:00)
[2017-05-29 04:24] LABS: AUTOMATED NEUTROPHIL # 21.9 TH/MM3 (1.8-7.7); BASOPHIL # 0.1 TH/MM3 (0-0.2); BASOPHIL % 0.4 % (0.0-2.0); EOSINOPHIL # 0.1 TH/MM3 (0-0.4); EOSINOPHIL % 0.5 % (0.0-4.0); HEMATOCRIT 34.5 % (39.0-51.0); HEMOGLOBIN 11.6 GM/DL (13.0-17.0); LYMPH % 5.8 % (9.0-44.0); LYMPHOCYTE # 1.5 TH/MM3 (1.0-4.8); MEAN CELL VOLUME 92.4 FL (80.0-100.0); MEAN CORPUSCULAR HEMOGLOBIN 31.2 PG (27.0-34.0); MEAN CORPUSCULAR HGB CONC 33.7 % (32.0-36.0); MEAN PLATELET VOLUME 8.6 FL (7.0-11.0); NEUT % 85.3 % (16.0-70.0); PLATELET COUNT 185 TH/MM3 (150-450); RED BLOOD COUNT 3.74 MIL/MM3 (4.50-5.90); RED CELL DISTRIBUTION WIDTH 13.8 % (11.6-17.2); WHITE BLOOD COUNT 25.6 TH/MM3 (4.0-11.0)
[2017-05-29] MEDS: RESP: ALBUTEROL 2.5 MG/IPRATROPIUM 0.5 MG NEB (SCH) NEB ×4 (04:44→20:46)
[2017-05-29 04:50] LABS: ALBUMIN 1.8 GM/DL (3.4-5.0); ALKALINE PHOSPHATASE 109 U/L (45-117); ALT (GPT) 25 U/L (12-78); AST (GOT) 25 U/L (15-37); BLOOD UREA NITROGEN 15 MG/DL (7-18); CALCIUM 8.3 MG/DL (8.5-10.1); CHLORIDE 101 MEQ/L (98-107); GLOMERULAR FILTRATION RATE 84 ML/MIN (>89); GLUCOSE,RANDOM 90 MG/DL (74-106); SODIUM (NA) 137 MEQ/L (136-145); TOTAL BILIRUBIN ADULT 1.6 MG/DL (0.2-1.0); TOTAL PROTEIN 6.4 GM/DL (6.4-8.2)
[2017-05-29] MEDS ORDERED: PHARMACY ORDERED LAB ONE ×2 (05:45)
[2017-05-29] MEDS: VANCOMYCIN 1,500 MG/NS 500 ML IV SCH ×4 (05:57→23:47)
[2017-05-29] MEDS ORDERED: VANCOMYCIN 1,500 MG/NS 500 ML IV SCH ×2 (06:00)
--- NOTE | 2017-05-29 06:41 | RADRPT ---
EXAM DATE/TIME: 05/29/2017 04:44 [facility] COMPARISON: CHEST SINGLE AP, May 28, 2017, 4:34. INDICATIONS : Respiratory disease. MEDICAL HISTORY : None. SURGICAL HISTORY : None. ENCOUNTER: Subsequent ACUITY: 1 week PAIN SCORE: Non-responsive. LOCATION: Bilateral chest FINDINGS: There has been interval extubation and removal of nasogastric tube. Left subclavian central catheter is stable in position. Bilateral pigtail thoracostomy tubes are again noted. The lungs are symmetrica lly aerated and grossly clear. Cardiac contours are stable accounting for differences in technique an d projection. CONCLUSION: Interval extubation. Stable aeration. Giovanni Hernandez MD on May 29, 2017 at 6:38 Board Certified Radiologist. This report was verified electronically.
[2017-05-29] MEDS: CHLORHEXIDINE 0.12% (ORAL KIT) 15 ML CUP MT SCH ×2 (08:00→20:00)
[2017-05-29] MEDS: DOCUSATE SODIUM 50 MG/SENNA 8.6 MG TAB PO SCH ×2 (08:52→20:55)
[2017-05-29] MEDS: DILTIAZEM HCL 90 MG TAB PO SCH ×4 (08:52→20:55)
[2017-05-29] MEDS: POTASSIUM CHLORIDE 25 MEQ EFFERVESCENT TAB PO SCH (08:53)
[2017-05-29] MEDS: DIGOXIN 0.5 MG/2 ML VIAL IV PUSH SCH (08:53)
[2017-05-29] MEDS: SODIUM CHLORIDE 0.9% FLUSH 10 ML FLUSH IV FLUSH SCH ×2 (08:53→20:55)
[2017-05-29] MEDS: ENOXAPARIN SODIUM 40 MG/0.4 ML SYRINGE SQ SCH (08:54)
[2017-05-29] MEDS: THIAMINE INJ 100 MG in SODIUM CHLORIDE 0.9% INJ 100 ML IV SCH (08:54)
[2017-05-29] MEDS ORDERED: ASPIRIN 81 MG CHEW TAB CHEW SCH (09:00)
--- NOTE | 2017-05-29 11:22 | HHI.IDPN ---
Note Infectious Disease Note Patient was extubated yesterday. Now on Nasal O2. Calm and responsive. Repeating himself. Post L2-3 disc space aspirate. Culture MRSA Low grade fever. Has bilateral chest tubes. WBC is higher. Blood culture has MRSA 05/25, 05/22. CSF culture no growth. WBC elevated. Patient admitted to hospital with altered mental status. The patient was evaluated in the emergency department and he was complaining of lower back pain. The patient had positive, screen of the urine for cocaine. PAST MEDICAL HISTORY: 1. Arthritis 2. Anxiety. 3. Substance abuse. ALLERGIES NO KNOWN DRUG ALLERGIES. ANTIBIOTICS Vancomycin. Current Medications Medications (Trade) Dose Ordered Sig/Frandy Route PRN Reason Start Time Stop Time Status Last Admin Dose Admin Sodium Chloride (NS Flush) 2 ml UNSCH PRN IV FLUSH FLUSH AFTER USING IV ACCESS 05/22/17 06:15 Sodium Chloride (NS Flush) 2 ml BID IV FLUSH 05/22/17 09:00 05/29/17 08:53 Ondansetron HCl (Zofran Inj) 4 mg Q6H PRN IVP NAUSEA OR VOMITING 05/22/17 06:15 Acetaminophen (Tylenol) 650 mg Q6H PRN PO FEVER 05/22/17 06:15 Senna/Docusate Sodium (Sabrina-Colace) 1 tab BID PO 05/22/17 09:00 05/29/17 08:52 Magnesium Hydroxide (Milk Of Magnesia Liq) 30 ml Q12H PRN PO Mild constipation 05/22/17 06:15 Sennosides (Senokot) 17.2 mg Q12H PRN PO Moderate constipation 05/22/17 06:15 Bisacodyl (Dulcolax Supp) 10 mg DAILY PRN RECTAL SEVERE CONSITIPATION 05/22/17 06:15 Lactulose (Lactulose Liq) 30 ml DAILY PRN PO SEVERE CONSITIPATION 05/22/17 06:15 Flumazenil (Romazicon Inj) 0.2 mg Q1M PRN IV PUSH SEE LABEL COMMENTS 05/22/17 11:30 Lorazepam (Ativan) 1 mg Q4H PRN PO CIWA 8 - 10 05/22/17 11:30 Lorazepam (Ativan) 2 mg Q2H PRN PO CIWA 11-14 05/22/17 11:30 05/25/17 19:19 Thiamine HCl 100 mg/Sodium Chloride 101 ml @ 101 mls/hr DAILY IV 05/22/17 13:00 05/29/17 08:54 Albuterol/ Ipratropium (Duoneb Neb) 1 ampule Q2HR NEB PRN NEB SOB/WHEEZING 05/22/17 12:00 Diltiazem HCl 125 mg/Sodium Chloride 125 ml @ 5 mls/hr TITRATE PRN IV Tachycardia 05/22/17 16:00 05/29/17 03:10 Pharmacy Profile Note 0 ml @ 0 mls/hr UNSCH OTHER 05/23/17 07:30 Future hold Haloperidol Lactate (Haldol Inj) 5 mg Q4H PRN IV agitation 05/24/17 08:15 05/25/17 23:08 Potassium Chloride 100 ml @ 50 mls/hr Q2H PRN IV For Potassium 2.8 - 3.2 mEq/L 05/24/17 08:15 Potassium Chloride 100 ml @ 50 mls/hr Q2H PRN IV For Potassium 2.8 - 3.2 mEq/L 05/24/17 08:15 05/25/17 08:00 Potassium Bicarb/ Potassium Chloride (K-Lyte Cl Eff) 50 meq UNSCH PRN PO For Potassium 3.3 - 3.5 mEq/L 05/24/17 08:15 05/25/17 19:20 Potassium Chloride 100 ml @ 25 mls/hr UNSCH PRN IV For Potassium 3.3 - 3.5 mEq/L 05/24/17 08:15 Potassium Chloride 100 ml @ 50 mls/hr Q2H PRN IV For Potassium 3.3 - 3.5 mEq/L 05/24/17 08:15 05/27/17 16:55 Magnesium Sulfate 4 gm/Sodium Chloride 100 ml @ 50 mls/hr UNSCH PRN IV For Magnesium 0.9 - 1.1 mg/dL 05/24/17 08:15 Magnesium Oxide (Mag-Ox) 800 mg UNSCH PRN PO For Magnesium 1.2 - 1.6 mg/dL 05/24/17 08:15 Magnesium Sulfate 2 gm/Sodium Chloride 100 ml @ 50 mls/hr UNSCH PRN IV For Magnesium 1.2 - 1.6 mg/dL 05/24/17 08:15 Potassium Phosphate (K-Phos) 2,000 mg Q4H PRN PO For Phosphorus < 2.5 mg/dL 05/24/17 08:15 Sodium Phosphate 30 mmol/Sodium Chloride 250 ml @ 42 mls/hr UNSCH PRN IV For Phosphorus < 2.5 mg/dL 05/24/17 08:15 Potassium Phosphate (K-Phos) 2,000 mg UNSCH PRN PO/TUBE SEE LABEL COMMENTS 05/24/17 08:15 Potassium Phosphate 30 mmol/ Sodium Chloride 260 ml @ 42 mls/hr UNSCH PRN IV SEE LABEL COMMENTS 05/24/17 08:15 05/26/17 13:23 Enoxaparin Sodium (Lovenox Inj) 40 mg Q24H SQ 05/26/17 09:00 Future hold 05/29/17 08:54 Hydralazine HCl (Apresoline Inj) 20 mg Q6H PRN IV PUSH SYS BP GREATER THAN 170 MMHG 05/26/17 13:00 05/28/17 14:39 Chlorhexidine Gluconate (Peridex 0.12% Liq) 15 ml BID@08,20 MT 05/26/17 20:00 05/28/17 08:00 Dextrose (D50w (Vial) Inj) 50 ml UNSCH PRN IV PUSH HYPOGLYCEMIA-SEE COMMENTS 05/27/17 00:45 Glucagon (Glucagon Inj) 1 mg UNSCH PRN OTHER HYPOGLYCEMIA-SEE COMMENTS 05/27/17 00:45 Insulin Human Regular (NovoLIN R SUPPLEMENTAL SCALE) 1 Q4HR SQ 05/27/17 04:00 Potassium Bicarb/ Potassium Chloride (K-Lyte Cl Eff) 25 meq DAILY PO 05/27/17 09:00 05/29/17 08:53 Dextrose/Sodium Chloride 1,000 ml @ 30 mls/hr Q24H IV 05/27/17 15:00 05/28/17 16:59 Albuterol/ Ipratropium (Duoneb Neb) 1 ampule Q6HR NEB NEB 05/27/17 22:00 05/29/17 09:04 Metoprolol Tartrate (Lopressor Inj) 5 mg Q6H IV PUSH 05/28/17 04:00 05/29/17 10:02 Diltiazem HCl (Cardizem) 90 mg QID PO 05/28/17 09:00 05/29/17 08:52 Dexmedetomidine HCl 1000 mcg/ Sodium Chloride 250 ml @ 3.92 mls/hr TITRATE PRN IV SEDATION 05/28/17 07:30 05/28/17 08:38 Morphine Sulfate (Morphine Inj) 2 mg Q3H PRN IV PUSH pain 5-10 05/28/17 09:30 05/29/17 07:10 Vancomycin HCl 1500 mg/Sodium Chloride 515 ml @ 257.5 mls/ hr Q18H IV 05/29/17 06:00 05/29/17 05:57 Aspirin (Aspirin Chew) 81 mg DAILY CHEW 05/29/17 09:00 05/29/17 08:52 Digoxin (Lanoxin Inj) 0.125 mg DAILY IV PUSH 05/29/17 09:00 05/29/17 08:53 Labetalol HCl (Trandate Inj) 10 mg Q2H PRN IV SBP > 160 05/28/17 17:45 05/29/17 00:25 Vital Signs Date Time Temp Pulse Resp B/P (MAP) Pulse Ox O2 Delivery O2 Flow Rate FiO2 05/29/17 10:00 114 05/29/17 08:00 100.0 102 23 171/80 (110) 98 05/29/17 08:00 102 05/29/17 08:00 98 Nasal Cannula 2.00 05/29/17 06:00 98 05/29/17 04:00 99.3 106 24 166/72 (103) 100 05/29/17 04:00 92 05/29/17 03:10 95 159/73 05/29/17 02:00 95 05/29/17 00:00 98.3 109 23 162/67 (98) 98 05/29/17 00:00 109 05/28/17 22:15 96 Nasal Cannula 2.00 05/28/17 22:15 94 Nasal Cannula 2.00 05/28/17 22:00 107 05/28/17 20:00 96 Nasal Cannula 2.00 05/28/17 20:00 112 05/28/17 20:00 97.9 121 20 155/88 (110) 96 05/28/17 19:49 112 160/78 05/28/17 18:00 112 05/28/17 17:37 12 05/28/17 16:00 99.2 120 19 166/77 (106) 97 05/28/17 16:00 120 05/28/17 14:00 100 05/28/17 12:00 97 05/28/17 12:00 99.0 97 16 169/80 (109) 98 05/28/17 11:40 99 Nasal Cannula 2.00 Laboratory Tests Test 05/28/17 06:35 05/29/17 04:00 White Blood Count 16.4 TH/MM3 25.6 TH/MM3 Red Blood Count 3.53 MIL/MM3 3.74 MIL/MM3 Hemoglobin 11.1 GM/DL 11.6 GM/DL Hematocrit 33.4 % 34.5 % Mean Corpuscular Volume 94.6 FL 92.4 FL Mean Corpuscular Hemoglobin 31.6 PG 31.2 PG Mean Corpuscular Hemoglobin Concent 33.4 % 33.7 % Red Cell Distribution Width 14.4 % 13.8 % Platelet Count 129 TH/MM3 185 TH/MM3 Mean Platelet Volume 8.8 FL 8.6 FL Neutrophils (%) (Auto) 82.1 % 85.3 % Lymphocytes (%) (Auto) 7.2 % 5.8 % Monocytes (%) (Auto) 8.6 % 8.0 % Eosinophils (%) (Auto) 1.9 % 0.5 % Basophils (%) (Auto) 0.2 % 0.4 % Neutrophils # (Auto) 13.5 TH/MM3 21.9 TH/MM3 Lymphocytes # (Auto) 1.2 TH/MM3 1.5 TH/MM3 Monocytes # (Auto) 1.4 TH/MM3 2.0 TH/MM3 Eosinophils # (Auto) 0.3 TH/MM3 0.1 TH/MM3 Basophils # (Auto) 0.0 TH/MM3 0.1 TH/MM3 CBC Comment DIFF FINAL AUTO DIFF Differential Comment AUTO DIFF CONFIRMED Laboratory Tests Test 05/28/17 01:40 05/28/17 05:22 05/29/17 04:00 Potassium Level 3.7 MEQ/L 3.6 MEQ/L 3.6 MEQ/L Blood Urea Nitrogen 18 MG/DL 15 MG/DL Creatinine 0.94 MG/DL 0.90 MG/DL Random Glucose 126 MG/DL 90 MG/DL Total Protein 5.9 GM/DL 6.4 GM/DL Albumin 1.6 GM/DL 1.8 GM/DL Calcium Level 7.9 MG/DL 8.3 MG/DL Phosphorus Level 3.5 MG/DL Magnesium Level 2.1 MG/DL Alkaline Phosphatase 83 U/L 109 U/L Aspartate Amino Transf (AST/SGOT) 23 U/L 25 U/L Alanine Aminotransferase (ALT/SGPT) 31 U/L 25 U/L Total Bilirubin 0.9 MG/DL 1.6 MG/DL Sodium Level 143 MEQ/L 137 MEQ/L Chloride Level 111 MEQ/L 101 MEQ/L Carbon Dioxide Level 23.4 MEQ/L 28.0 MEQ/L Anion Gap 9 MEQ/L 8 MEQ/L Estimat Glomerular Filtration Rate 80 ML/MIN 84 ML/MIN Microbiology Date/Time Source Procedure Growth Status 05/28/17 05:22 Blood Peripheral Aerobic Blood Culture - Preliminary NO GROWTH IN 1 DAY Resulted 05/28/17 05:22 Blood Peripheral Anaerobic Blood Culture - Preliminary NO GROWTH IN 1 DAY Resulted 05/28/17 05:15 Blood Peripheral Aerobic Blood Culture - Preliminary NO GROWTH IN 1 DAY Resulted 05/28/17 05:15 Blood Peripheral Anaerobic Blood Culture - Preliminary NO GROWTH IN 1 DAY Resulted 05/27/17 15:45 Fluid Pleural Fluid Fungal Smear - Final NO FUNGAL ELEMENTS SEEN. Resulted 05/27/17 15:45 Fluid Pleural Fluid Fungal Culture Pending Resulted 05/27/17 15:45 Fluid Pleural Fluid Acid Fast Stain Pending Received 05/27/17 15:45 Fluid Pleural Fluid Mycobacterial Culture Pending Received 05/27/17 15:45 Fluid Pleural Fluid Gram Stain - Final Resulted 05/27/17 15:45 Fluid Pleural Fluid Body Fluid Culture - Preliminary NO GROWTH IN 48 HOURS. Resulted 05/27/17 12:30 Fluid Pleural Fluid Fungal Smear - Final NO FUNGAL ELEMENTS SEEN. Resulted 05/27/17 12:30 Fluid Pleural Fluid Fungal Culture Pending Resulted 05/27/17 12:30 Fluid Pleural Fluid Acid Fast Stain - Final NO ACID FAST BACILLI SEEN Resulted 05/27/17 12:30 Fluid Pleural Fluid Mycobacterial Culture Pending Resulted 05/27/17 12:30 Fluid Pleural Fluid Gram Stain - Final Resulted 05/27/17 12:30 Fluid Pleural Fluid Body Fluid Culture - Preliminary NO GROWTH IN 48 HOURS. Resulted 05/27/17 11:05 Abscess Back Fungal Smear - Final NO FUNGAL ELEMENTS SEEN. Resulted 05/27/17 11:05 Abscess Back Fungal Culture Pending Resulted 05/27/17 11:05 Abscess Back Acid Fast Stain - Final NO ACID FAST BACILLI SEEN Resulted 05/27/17 11:05 Abscess Back Mycobacterial Culture Pending Resulted 05/27/17 11:05 Abscess Back Gram Stain - Final Resulted 05/27/17 11:05 Wound Culture - Preliminary S. Aureus Mrsa Resulted IMAGING: Chest X-Ray 05/29/17 0600 Signed Impressions: Service Date/Time: Monday, May 29, 2017 04:44 - CONCLUSION: Interval extubation. Stable aeration. Giovanni Hernandez MD Chest X-Ray 05/28/17 0600 Signed Impressions: Service Date/Time: May 04:34 - CONCLUSION: Bilateral pleural drains. There is indistinctness of the central pulmonary vessels which may represent pulmonary venous hypertension. Giovanni Gomez MD Head CT 05/28/17 0000 Signed Impressions: Service Date/Time: May 01:16 - CONCLUSION: 1. No intracranial abnormality is seen. 2. Ethmoid and sphenoid sinus disease. Giovanni Gomez MD Chest X-Ray 05/27/17 0600 Signed Impressions: Service Date/Time: Saturday, May 27, 2017 04:48 - CONCLUSION: Diffuse increase density likely representing edema which appears worse. Some degree of effusion needs to be considered especially on the left. Giovanni Gomez MD Needle Biopsy/Aspiration X-Ray 05/27/17 0000 Signed Impressions: Service Date/Time: Saturday, May 27, 2017 12:01 - CONCLUSION: Uncomplicated L2-L3 disc aspiration as above. Armando Ennis Jr., MD Chest X-Ray 05/27/17 0000 Signed Impressions: Service Date/Time: Saturday, May 27, 2017 13:04 - CONCLUSION: 1. Interval left thoracostomy tube placement. There is a kink involving the catheter proximal to the distal sideholes which could reduce or completely obstruct the drainage capability of the tube. 2. Mild left basilar atelectasis. 3. Unchanged right lower lobe infiltrate/effusion. Armando Ennis Jr., MD Chest CT 05/26/17 0000 Signed Impressions: Service Date/Time: Friday, May 26, 2017 10:55 - CONCLUSION: Moderate sized bilateral pleural effusions with small areas of patchy consolidation as well as passive atelectasis. This is a new finding from the prior chest x-ray. Noncardiogenic pulmonary edema versus infectious etiology. Armando Ennis Jr., MD Abdomen/Pelvis CT 05/26/17 0000 Signed Impressions: Service Date/Time: Friday, May 26, 2017 10:55 - CONCLUSION: Definite retroperitoneal inflammation around the abdominal aorta as well as extensive small lymph nodes throughout the retroperitoneum. There is also free fluid in both paracolic gutters right greater than left. I was initially concerning about a possible discitis at L2-3 with some cystic change along the endplates, particularly L2-3. Large bilateral pleural effusion with passive atelectasis. Sean Bronw MD Upper Extremity Ultrasound 05/25/17 0000 Signed Impressions: Service Date/Time: Thursday, May 25, 2017 19:27 - CONCLUSION: Nonocclusive thrombus of the cephalic and basilic veins without evidence of proximal propagation. Armando Peterson MD Thoracic Spine MRI 05/24/17 0000 Signed Impressions: Service Date/Time: Wednesday, May 24, 2017 09:12 - CONCLUSION: 1. Minimal disc osteophyte complexes at T7-8, T8-9 and T9-10. 2. No spinal stenosis, focal disc herniation or significant neural foraminal narrowing. 3. No enhancing abscess collection. Abilio Eastman MD Lumbar Spine MRI 05/24/17 0000 Signed Impressions: Service Date/Time: Wednesday, May 24, 2017 09:12 - CONCLUSION: 1. Mild spinal stenosis and mild to moderate bilateral narrowing at L2-3, L3-4 and L4- 5. 2. Mild spinal stenosis and mild bilateral foraminal narrowing at L1-2. 3. Diffuse degenerative disease throughout the lumbar spine. 4. No evidence of enhancing abscess. Abilio Eastman MD Cervical Spine MRI 05/24/17 0000 Signed Impressions: Service Date/Time: Wednesday, May 24, 2017 09:12 - CONCLUSION: 1. Mild bilateral foraminal narrowing at C3-4, C4-5, C5-6 and C6-7. 2. No enhancing abscess. 3. Reversal of the normal cervical lordosis. 4. Diffuse cervical spondylosis from C3-C7. Abilio Eastman MD Brain MRI 05/24/17 0000 Signed Impressions: Service Date/Time: Wednesday, May 24, 2017 09:12 - CONCLUSION: 1. Mild periventricular white matter small vessel ischemic changes are noted bilaterally. 2. No acute infarct, acute hemorrhage, mass effect or extra- axial fluid collections. 3. No abnormal enhancing mass lesion. Abilio Eastman MD PHYSICAL EXAM. GENERAL: Awake and alert. HEENT: The head is atraumatic. No icterus. NECK: No swelling. No adenopathy. LUNGS: Clear breath sounds. HEART: Tachycardic. S1-S2. No audible murmurs or rubs or gallops. ABDOMEN: Bowel sounds present, soft, no tenderness. EXTREMITIES: No clubbing or cyanosis. Both hands with edema at the dorsum of the hands. Erythema at the dorsum of the right hand. No splinter hemorrhages at the nail beds. No calf tenderness appreciated. No palpable cords. SKIN: No diffuse rash. NEUROLOGIC: Non focal PSYCHIATRIC: Psych unable to assess. IMPRESSION 1. Abnormal cerebrospinal fluid suggesting meningitis and very likely bacterial meningitis. CSF culture has no growth. 2. Bacteremia MRSA. Unclear etiology. ? related to the back pain. ? IV drug use. Blood culture was persistently positive but vancomycin level was sub therapeutic. 3. Discitis lumbar spine L 1 -2. MRSA. Extensive small lymph nodes in the abdomen ? etiology. May not be related to infection. 4. Positive toxicology screen for cocaine. Appears clinically stable. RECOMMENDATIONS 1. Continue Vancomycin. Aim for 15- 20 vanco trough. 2. Monitor repeat blood cultures. 3. Follow pleural fluid culture. 4. Monitor the WBC. 5. Monitor clinical status. In light of discitis we need to aim for IV antibiotic x 6 to 8 weeks. Giovanni Hernandez MD May 29, 2017 11:22
[2017-05-29] MEDS ORDERED: RESP: ALBUTEROL 2.5 MG/3 ML NEB (PRN) NEB (15:15)
--- NOTE | 2017-05-29 15:24 | HHI.CCPN ---
Subjective Remarks/Hospital Course Patient is a 66-year-old male with history of anxiety, arthritis, substance abuse who was initially admitted to hospitalist service with altered mentation, and back pain. Found to have UDS positive for cocaine. In the ED patient was anxious and combative. Initially admitted to the medical floor. WBC 14.2 with bandemia, lactic acid 3.4, BUN/abdomen 27/1.49. Patient was given IV fluids, started on Cefepime and vanc but he continued to become more combative restless and altered. Patient was moved to the ICU and I immediately evaluated him. Patient is in four point restraints. He was unable to communicate, very agitated. Heart rate is in 160s rhythm appears to be A. fib with RVR. Patient was given 2 mg IV morphine and 2 mg IV Versed. He still intermittently agitated and started him on Precedex infusion. Patient is intermittently apneic but wakes up to painful stimuli. Because of severe agitation and drug withdrawal I am unable to get any additional history 05/23/17: Patient remains confused but intermittently oriented to person and somewhat place. Continues to repeat same words (Echolalia). Blood cultures GPC 3/4 bottles. Echo pending, also will proceed with LP. Change Cefepime to Rocephin, Add ampicillin 05/24/17: Continues to be septic encephalopathy. Blood cultures growing MRSA. Echo pending, but circled limited I did not see any vegetation. LP findings consistent with bacterial meningitis 05/25/17: Remains critically ill but stable. Encephalopathy slowly improving, on weaning doses of Precedex. Afib with RVR, re start Cardizem. LEXIE today to rule out endocarditis. 05/26/17: Patient remains intermittently agitated tachycardic tachypneic. Weaned off Precedex. In A. fib with RVR Cardizem IV push and Lopressor IV push given without response. Start Cardizem infusion. CT shows bilateral large pleural effusions because of MRSA bacteremia needs to be drained. CT abdomen pelvis probable L2-L3 discitis. Discussed with radiologist Dr. Brown. Discussed with daughter, will proceed with intubation and possible biopsy 05/27/17: Patient was intubated yesterday for worsening agitation respiratory distress and also to facilitate L2-L3, CT-guided needle biopsy to rule out discitis. Blood cultures from 05/25/17 growing GPC most likely MRSA. Recommend bacteremia could be related to the L2-L3 discitis. Patient remains critically ill. Remains in atrial fibrillation with rate controlled. Cannot anticoagulate due to anticipated procedures (lumbar disc biopsy). Started on D5 1/2NS for hypoglycemia 05/28/17: Remains intubated sedated, not following commands while on sedation. CT of the head done overnight for unequal pupils-no acute findings. Had bilateral chest tubes placed yesterday 1.6 L output combined. Urine output excellent 3 L. Daptomycin added yesterday by ID, continue vancomycin. WBC count 16.4 today from 11.8. No fever. Repeat blood cultures sent today Subjective 05/29: Extubated without competition. Currently on nasal cannula. Currently vancomycin for MRSA/discitis. Neurosurgery was consulted. Bilateral chest tubes in place Objective Vital Signs Date Time Temp Pulse Resp B/P (MAP) Pulse Ox O2 Delivery O2 Flow Rate FiO2 05/29/17 14:00 94 05/29/17 12:00 99.4 24 153/72 (99) 96 05/29/17 08:00 Nasal Cannula 2.00 05/28/17 11:11 40 Intake and Output 05/29/17 05/29/17 05/30/17 08:00 16:00 00:00 Intake Total 1920 ml Output Total 2750 ml Balance -830 ml Result Diagram: 05/29/17 0400 05/29/17 0400 Other Results Microbiology Date/Time Source Procedure Growth Status 05/28/17 05:22 Blood Peripheral Aerobic Blood Culture - Preliminary NO GROWTH IN 1 DAY Resulted 05/28/17 05:22 Blood Peripheral Anaerobic Blood Culture - Preliminary NO GROWTH IN 1 DAY Resulted 05/27/17 15:45 Fluid Pleural Fluid Fungal Smear - Final NO FUNGAL ELEMENTS SEEN. Resulted 05/27/17 15:45 Fluid Pleural Fluid Fungal Culture Pending Resulted 05/27/17 11:05 Abscess Back Fungal Smear - Final NO FUNGAL ELEMENTS SEEN. Resulted 05/27/17 11:05 Abscess Back Fungal Culture Pending Resulted Imaging Last Impressions Chest X-Ray 05/29/17 0600 Signed Impressions: Service Date/Time: Monday, May 29, 2017 04:44 - CONCLUSION: Interval extubation. Stable aeration. Giovanni Hernandez MD Head CT 05/28/17 0000 Signed Impressions: Service Date/Time: May 01:16 - CONCLUSION: 1. No intracranial abnormality is seen. 2. Ethmoid and sphenoid sinus disease. Giovanni Gomez MD Needle Biopsy/Aspiration X-Ray 05/27/17 0000 Signed Impressions: Service Date/Time: Saturday, May 27, 2017 12:01 - CONCLUSION: Uncomplicated L2-L3 disc aspiration as above. Armando Ennis Jr., MD Chest CT 05/26/17 0000 Signed Impressions: Service Date/Time: Friday, May 26, 2017 10:55 - CONCLUSION: Moderate sized bilateral pleural effusions with small areas of patchy consolidation as well as passive atelectasis. This is a new finding from the prior chest x-ray. Noncardiogenic pulmonary edema versus infectious etiology. Armando Ennis Jr., MD Abdomen/Pelvis CT 05/26/17 0000 Signed Impressions: Service Date/Time: Friday, May 26, 2017 10:55 - CONCLUSION: Definite retroperitoneal inflammation around the abdominal aorta as well as extensive small lymph nodes throughout the retroperitoneum. There is also free fluid in both paracolic gutters right greater than left. I was initially concerning about a possible discitis at L2-3 with some cystic change along the endplates, particularly L2-3. Large bilateral pleural effusion with passive atelectasis. Sean Brown MD Upper Extremity Ultrasound 05/25/17 0000 Signed Impressions: Service Date/Time: Thursday, May 25, 2017 19:27 - CONCLUSION: Nonocclusive thrombus of the cephalic and basilic veins without evidence of proximal propagation. Armando Peterson MD Thoracic Spine MRI 05/24/17 0000 Signed Impressions: Service Date/Time: Wednesday, May 24, 2017 09:12 - CONCLUSION: 1. Minimal disc osteophyte complexes at T7-8, T8-9 and T9-10. 2. No spinal stenosis, focal disc herniation or significant neural foraminal narrowing. 3. No enhancing abscess collection. Abilio Eastman MD Lumbar Spine MRI 05/24/17 0000 Signed Impressions: Service Date/Time: Wednesday, May 24, 2017 09:12 - CONCLUSION: 1. Mild spinal stenosis and mild to moderate bilateral narrowing at L2-3, L3-4 and L4- 5. 2. Mild spinal stenosis and mild bilateral foraminal narrowing at L1-2. 3. Diffuse degenerative disease throughout the lumbar spine. 4. No evidence of enhancing abscess. Abilio Eastman MD Cervical Spine MRI 05/24/17 0000 Signed Impressions: Service Date/Time: Wednesday, May 24, 2017 09:12 - CONCLUSION: 1. Mild bilateral foraminal narrowing at C3-4, C4-5, C5-6 and C6-7. 2. No enhancing abscess. 3. Reversal of the normal cervical lordosis. 4. Diffuse cervical spondylosis from C3-C7. Abilio Eastman MD Brain MRI 05/24/17 0000 Signed Impressions: Service Date/Time: Wednesday, May 24, 2017 09:12 - CONCLUSION: 1. Mild periventricular white matter small vessel ischemic changes are noted bilaterally. 2. No acute infarct, acute hemorrhage, mass effect or extra- axial fluid collections. 3. No abnormal enhancing mass lesion. Abilio Eastman MD Objective Remarks GENERAL: 66-year-old male, currently resting in bed on nasal cannula in no acute distress SKIN: Well-perfused HEAD: Atraumatic. Normocephalic. No temporal or scalp tenderness. EYES: Pupils equal round and reactive about 3 Herrmann's bilaterally and reactive. ENT: Orotracheally intubated NECK: Trachea midline. No JVD or lymphadenopathy. Supple No neck stiffness CARDIOVASCULAR: RRR. S1, S2 no S4. RESPIRATORY: Bilateral course breath sounds and diminished at the bases. Bilateral pigtails with 0.23 L combined overnight GASTROINTESTINAL: Abdomen soft, non-tender, nondistended. MUSCULOSKELETAL: Difficult to asses for back tenderness, due to altered mentation. Right hand dorsum is warm with erythema NEUROLOGICAL: Cranial nerves II through XII grossly intact. Wiggles toes bilateral. Follows commands with upper extremities. Pupils are equal round reactive Vascular Central Line Catheter: Yes Assessment to: Continue Date of Insertion: May 27, 2017 Line: Central Venous Catheter Side: Left Location: Subclavian A/P Assessment and Plan NEURO/PSYCH: Bacterial meningitis Severe encephalopathy UDS positive for cocaine MRSA L2-L3 discitis Substance abuse with severe withdrawal - Delirium and encephalopathy secondary to severe sepsis and drug withdrawal - Urine drug screen positive for cocaine, history of IV opiate abuse - Currently on haloperidol 5 mg IV every 6 hours when necessary agitation - Currently morphine sulfate 2 mg every 3 hours. Pain 6 or 10 Neurosurgery consultation for discitis - [facility] protocol Continue thiamine - MRI brain no acute finding. MRI spine no evidence of abscess, but CT abdomen showed possible L2-L3 discitis RESP: Large bilateral transudative pleural effusions s/p pigtail chest tube placement - Intubated and placed on mechanical ventilation 05/26/17, due to respiratory distress agitation and also to facilitate biopsy procedure. Extubated 05/28 - Nasal cannula to maintain saturations greater than equal to 92% Incentive spirometry while awake -Albuterol/ipratropium aerosols scheduled q6 and albuterol aerosols every 2 hours when necessary dyspnea - Moderate to large bilateral pleural effusions,s/p bilateral chest tube placement 05/27/17, 0.23 L output CV: A. fib with RVR - normal sinus rhythm - D5-1/2NS for hypoglycemia, reduce to 30 ml per hour. - Trend lactic acid, now normalized - Currently on digoxin 0.125 mg IV daily and metoprolol 5 mg IV every 6 hours for rate control. Also diltiazem 60 mg every 6 hours. Intermittently normal sinus rhythm. - Atrial fibrillation is most likely from drug withdrawal will not anticoagulate due to lumbar disc biopsy 05/27, and patient is a poor candidate for long anticoagulation due to alcohol and drug dependence - Start low-dose aspirin when okay with invasive radiology - 2-D echo NL EF, Dr. An consulted for LEXIE-negative for vegetation, clot GI: Hepatitis C antibody positive Hypoalbuminemia Elevated total bilirubin -Clear liquid diet -. IV pantoprazole - Docusate sodium/senna 1 tablet twice a day bowel regimen Renal/: - Monitor renal function closely. - Aggressive fluid resuscitation - Monitor CPK ID: Severe sepsis with MRSA bacteremia. L2-L3 discitis - Continue meningitic doses of Vancomycin, Daptomycin added 05/27 due to vanc DASHAWN 2 - ID Dr. Hernandez. LP findings consistent with bacterial meningitis - CSF cx neg to date, but LP was done after 24 hours on ABX - [address] abd shows ? L2-L3 discitis. f/u lumbar disc biopsy, culture HEME: Leukocytosis Normocytic anemia - Leukocytosis from sepsis. Monitor CBC, CMP ENDO: Hyperglycemia of critical illness SSI with Accu-Cheks every 4 hours to maintain euglycemia/low regimen Novulog Currently on D5 1/2 normal saline - Electrolyte replacement per protocol PROPH: - Bilateral lower extremity SCDs. Enoxaparin 40 mg sq daily-restart if ok with IR, Famotidine LINES: -CVL left subclavian 05/27 Level II follow-up Discussed with Dr. Ennis/anthony. Okay to resume pharmacological prophylaxis for DVT and baby aspirin 81 mg daily Ehsan Holland MD May 29, 2017 15:24
[2017-05-29] MEDS ORDERED: POTASSIUM CHLORIDE 20 MEQ CONTROLLED RELEASE TAB PO ONE (16:00)
--- NOTE | 2017-05-29 18:59 | PD.CONS ---
History of Present Illness Service Neurosurgery Consult Requested By Medicine service Reason for Consult Lumbar Discitis Primary Care Physician Unknown Diagnoses: History of Present Illness 66-year-old male who presented to the emergency room on 2017 with complaint of back pain. He was also noted to have altered mental status and confusion per his significant other which reportedly prompted a call to EMS. There is a note in his initial emergency room record that he may have received a heroin injection in his right arm a couple of days prior to presenting to the emergency room. His drug screen was positive for cocaine. He states that he developed progressive severe back pain approximately 1 week ago. He denies previous history of significant back pain, but does have a history of arthritis. He has not had any neck pain or stiffness. Denies any fevers or chills. Review of his records indicate that he was very agitated upon initial admission. He has remained rather confused during the hospitalization. Review of Systems ROS Limitations: Altered Mental Status Constitutional: DENIES: Fatigue, Fever Eyes: DENIES: Blurred vision, Diplopia Ears, nose, mouth, throat: DENIES: Hearing loss, Throat pain Respiratory: DENIES: Cough, Shortness of breath Cardiovascular: DENIES: Chest pain, Palpitations Gastrointestinal: DENIES: Abdominal pain, Diarrhea, Nausea Musculoskeletal: COMPLAINS OF: Joint pain, Muscle aches, Stiffness, Back pain, DENIES: Neck pain Hematologic/lymphatic: DENIES: Bruising Neurologic: COMPLAINS OF: Headache, Speech Problems, Tremor, DENIES: Abnormal gait, Seizures Psychiatric: COMPLAINS OF: Confusion Past Family Social History Allergies: Coded Allergies: No Known Allergies (Unverified Allergy, Unknown, 05/22/17) Past Medical History Anxiety disorder Arthritis Past Surgical History No major surgeries reported Reported Medications Reported Meds & Active Scripts Active Medrol Dosepak (Methylprednisolone) 4 Mg Dspk 4 Mg PO DIRECTED Per Pharmacist direction Ibuprofen 600 Mg Tab 600 Mg PO TID 5 Days Robaxin (Methocarbamol) 500 Mg Tab 500 Mg PO TID 3 Days Keflex (Cephalexin) 500 Mg Cap 500 Mg PO Q8H 7 Days Ibuprofen 600 Mg Tab 600 Mg PO Q8HR PRN Keflex (Cephalexin) 500 Mg Capsule 500 Mg PO Q6H 7 Days Reported Citalopram (Citalopram Hydrobromide) 20 Mg Tab 20 Mg PO DAILY Xanax (Alprazolam) 0.5 Mg Tab 0.5 Mg PO Q4H PRN Family History States no history of cardiac or pulmonary disease, diabetes or cancer in the family Social History Denies alcohol or tobacco use. Illicit drug use is noted above Physical Exam Vital Signs Vital Signs Date Time Temp Pulse Resp B/P (MAP) Pulse Ox O2 Delivery O2 Flow Rate FiO2 05/29/17 18:00 100 05/29/17 16:00 89 05/29/17 16:00 98.8 89 20 172/86 (114) 93 05/29/17 14:00 94 05/29/17 12:00 84 05/29/17 12:00 99.4 84 24 153/72 (99) 96 05/29/17 10:00 114 05/29/17 08:00 100.0 102 23 171/80 (110) 98 05/29/17 08:00 102 05/29/17 08:00 98 Nasal Cannula 2.00 05/29/17 06:00 98 05/29/17 04:00 99.3 106 24 166/72 (103) 100 05/29/17 04:00 92 05/29/17 03:10 95 159/73 05/29/17 02:00 95 05/29/17 00:00 98.3 109 23 162/67 (98) 98 05/29/17 00:00 109 05/28/17 22:15 96 Nasal Cannula 2.00 05/28/17 22:15 94 Nasal Cannula 2.00 05/28/17 22:00 107 05/28/17 20:00 96 Nasal Cannula 2.00 05/28/17 20:00 112 05/28/17 20:00 97.9 121 20 155/88 (110) 96 05/28/17 19:49 112 160/78 Physical Exam GENERAL: This is a well-nourished, well-developed patient, no apparent distress. SKIN: No abrasions, contusion, rash noted. Skin warm and dry. HEAD: Atraumatic. Normocephalic. No temporal or scalp tenderness. EYES: Sclerae are clear and nonicteric ENT: No facial edema or ecchymosis. No periorbital edema. No CSF otorrhea or rhinorrhea. No palpable facial fracture or deformity. NECK: Trachea midline. No cervical spine tenderness. CARDIOVASCULAR: Regular rate and rhythm without murmurs, gallops, or rubs. RESPIRATORY: Clear to auscultation. Breath sounds equal bilaterally. No wheezes , rales, or rhonchi. GASTROINTESTINAL: Abdomen soft, non-tender, nondistended. No hepato-splenomegaly , or palpable masses. No guarding. MUSCULOSKELETAL: Extremities without cyanosis, or edema. No joint tenderness, or edema noted. No calf tenderness. Dorsalis pedis pulses 2+ bilateral NEUROLOGICAL: Mild lethargy Oriented X person and month. He seems to know that he is in the hospital but cannot tell me what city or which hospital. Speech is slow but clear Conversant and appropriate Follow simple commands well Answers questions appropriately Appears to have diminished judgment and insight Moderately diminished remote and recent memory No evidence of anxiety or depression Pupils are equal and reactive to accommodation. Extra-ocular movements, visual thao to confrontation, facial sensorimotor, tongue, palate, sternocleidomastoid testing, hearing to finger rub testing, and bilateral shoulder shrug are all intact. Sensation is intact to light touch in all extremities Strength is somewhat difficult to accurately test. He has a fine tremor throughout the upper and lower extremities and appears to be giving somewhat poor effort with motor testing. Strength is grossly 4/5 diffuse in the upper extremities, 3/5 in the lower extremities with complaint of some low back pain with lower extremity motor testing.. Lucía's absent bilaterally No ankle clonus Plantar responses absent bilateral Fine motor movements moderately impaired in the upper extremities Laboratory Laboratory Tests Test 05/29/17 04:00 05/29/17 06:00 White Blood Count 25.6 Red Blood Count 3.74 Hemoglobin 11.6 Hematocrit 34.5 Mean Corpuscular Volume 92.4 Mean Corpuscular Hemoglobin 31.2 Mean Corpuscular Hemoglobin Concent 33.7 Red Cell Distribution Width 13.8 Platelet Count 185 Mean Platelet Volume 8.6 Neutrophils (%) (Auto) 85.3 Lymphocytes (%) (Auto) 5.8 Monocytes (%) (Auto) 8.0 Eosinophils (%) (Auto) 0.5 Basophils (%) (Auto) 0.4 Neutrophils # (Auto) 21.9 Lymphocytes # (Auto) 1.5 Monocytes # (Auto) 2.0 Eosinophils # (Auto) 0.1 Basophils # (Auto) 0.1 CBC Comment AUTO DIFF Differential Comment AUTO DIFF CONFIRMED Blood Urea Nitrogen 15 Creatinine 0.90 Random Glucose 90 Total Protein 6.4 Albumin 1.8 Calcium Level 8.3 Alkaline Phosphatase 109 Aspartate Amino Transf (AST/SGOT) 25 Alanine Aminotransferase (ALT/SGPT) 25 Total Bilirubin 1.6 Sodium Level 137 Potassium Level 3.6 Chloride Level 101 Carbon Dioxide Level 28.0 Anion Gap 8 Estimat Glomerular Filtration Rate 84 Vancomycin Level Trough 16.1 Date/Time Source Procedure Growth Status 05/28/17 05:22 Blood Peripheral Aerobic Blood Culture - Preliminary NO GROWTH IN 1 DAY Resulted 05/28/17 05:22 Blood Peripheral Anaerobic Blood Culture - Preliminary NO GROWTH IN 1 DAY Resulted 05/27/17 15:45 Fluid Pleural Fluid Fungal Smear - Final NO FUNGAL ELEMENTS SEEN. Resulted 05/27/17 15:45 Fluid Pleural Fluid Fungal Culture Pending Resulted 05/27/17 11:05 Abscess Back Fungal Smear - Final NO FUNGAL ELEMENTS SEEN. Resulted 05/27/17 11:05 Abscess Back Fungal Culture Pending Resulted Result Diagram: 05/29/17 0400 05/29/17 0400 Imaging The patient's MRI of the brain, cervical/thoracic/lumbar spine images as well as CT scan head images have all been reviewed by the undersigned. He appears to have some inflammatory changes with some endplate changes at the L2-3 level without definite epidural abscess. No significant canal stenosis. Otherwise agree with findings as noted below: Chest X-Ray 05/29/17 0600 Signed Impressions: Service Date/Time: Monday, May 29, 2017 04:44 - CONCLUSION: Interval extubation. Stable aeration. Giovanni Hernandez MD Head CT 05/28/17 0000 Signed Impressions: Service Date/Time: May 01:16 - CONCLUSION: 1. No intracranial abnormality is seen. 2. Ethmoid and sphenoid sinus disease. Giovanni Gomez MD Needle Biopsy/Aspiration X-Ray 05/27/17 0000 Signed Impressions: Service Date/Time: Saturday, May 27, 2017 12:01 - CONCLUSION: Uncomplicated L2-L3 disc aspiration as above. Armando Ennis Jr., MD Chest CT 05/26/17 0000 Signed Impressions: Service Date/Time: Friday, May 26, 2017 10:55 - CONCLUSION: Moderate sized bilateral pleural effusions with small areas of patchy consolidation as well as passive atelectasis. This is a new finding from the prior chest x-ray. Noncardiogenic pulmonary edema versus infectious etiology. Armando Ennis Jr., MD Abdomen/Pelvis CT 05/26/17 0000 Signed Impressions: Service Date/Time: Friday, May 26, 2017 10:55 - CONCLUSION: Definite retroperitoneal inflammation around the abdominal aorta as well as extensive small lymph nodes throughout the retroperitoneum. There is also free fluid in both paracolic gutters right greater than left. I was initially concerning about a possible discitis at L2-3 with some cystic change along the endplates, particularly L2-3. Large bilateral pleural effusion with passive atelectasis. Sean Brown MD Upper Extremity Ultrasound 05/25/17 0000 Signed Impressions: Service Date/Time: Thursday, May 25, 2017 19:27 - CONCLUSION: Nonocclusive thrombus of the cephalic and basilic veins without evidence of proximal propagation. Armando Peterson MD Thoracic Spine MRI 05/24/17 0000 Signed Impressions: Service Date/Time: Wednesday, May 24, 2017 09:12 - CONCLUSION: 1. Minimal disc osteophyte complexes at T7-8, T8-9 and T9-10. 2. No spinal stenosis, focal disc herniation or significant neural foraminal narrowing. 3. No enhancing abscess collection. Abilio Eastman MD Lumbar Spine MRI 05/24/17 0000 Signed Impressions: Service Date/Time: Wednesday, May 24, 2017 09:12 - CONCLUSION: 1. Mild spinal stenosis and mild to moderate bilateral narrowing at L2-3, L3-4 and L4- 5. 2. Mild spinal stenosis and mild bilateral foraminal narrowing at L1-2. 3. Diffuse degenerative disease throughout the lumbar spine. 4. No evidence of enhancing abscess. Abilio Eastman MD Cervical Spine MRI 05/24/17 0000 Signed Impressions: Service Date/Time: Wednesday, May 24, 2017 09:12 - CONCLUSION: 1. Mild bilateral foraminal narrowing at C3-4, C4-5, C5-6 and C6-7. 2. No enhancing abscess. 3. Reversal of the normal cervical lordosis. 4. Diffuse cervical spondylosis from C3-C7. Abilio Eastman MD Brain MRI 05/24/17 0000 Signed Impressions: Service Date/Time: Wednesday, May 24, 2017 09:12 - CONCLUSION: 1. Mild periventricular white matter small vessel ischemic changes are noted bilaterally. 2. No acute infarct, acute hemorrhage, mass effect or extra- axial fluid collections. 3. No abnormal enhancing mass lesion. Abilio Eastman MD Assessment and Plan Assessment and Plan Impression: 1. Findings consistent with MRSA L2-3 discitis. No definite evidence of epidural abscess formation 2. Altered mental status. Possibly related to sepsis, meningitis, substance abuse with secondary encephalopathy. 3. Large bilateral pleural effusions-status post chest tube placement 4. Atrial fibrillation. Recommendations: Findings were discussed with the patient. He appears to have somewhat limited judgment and insight with impaired comprehension. Infectious disease notes reviewed. Continuing intravenous antibiotics for infections as noted above. Cardiac echo without evidence of significant abnormality. LEXIE negative for vegetation per report. No surgical intervention for discitis anticipated at this point. May mobilize out of bed without a brace from neurosurgical standpoint. Plan follow-up imaging studies in the next 7-10 days to monitor evolution of the discitis. No contraindication for anticoagulation from neurosurgery standpoint José Antonio Krause MD May 29, 2017 18:59
[2017-05-29] MEDS: DEXT 5%-NACL 0.45% 1000 ML INJ 1,000 ML IV SCH (20:55)
[2017-05-29] MEDS: HEPARIN SODIUM - SQ 10,000 UNITS/ML VIAL SQ SCH (20:56)
[2017-05-30] VITALS (14 sets, daily range): BP systolic 125–164; BP diastolic 62–84; PULSE 74–100; RESP 15–33; TEMP 98.3–100.4; O2SAT 93–100
[2017-05-30] MEDS: METOPROLOL TARTRATE 5 MG/5 ML VIAL IV PUSH SCH ×4 (04:00→21:46)
[2017-05-30] MEDS: INSULIN NovoLIN REGULAR SUPPLEMENTAL SCALE SQ SCH ×6 (04:00→20:00)
[2017-05-30] MEDS: MORPHINE SULFATE 2 MG/ML INJ IV PUSH PRN ×2 (05:14→17:12)
[2017-05-30] MEDS: HEPARIN SODIUM - SQ 10,000 UNITS/ML VIAL SQ SCH ×4 (05:14→23:43)
[2017-05-30] MEDS: RESP: ALBUTEROL 2.5 MG/IPRATROPIUM 0.5 MG NEB (SCH) NEB ×4 (05:24→20:40)
[2017-05-30 06:24] LABS: AUTOMATED NEUTROPHIL # 15.7 TH/MM3 (1.8-7.7); BASOPHIL % 0.2 % (0.0-2.0); EOSINOPHIL # 0.2 TH/MM3 (0-0.4); EOSINOPHIL % 0.8 % (0.0-4.0); HEMATOCRIT 32.9 % (39.0-51.0); HEMOGLOBIN 10.9 GM/DL (13.0-17.0); LYMPH % 7.8 % (9.0-44.0); LYMPHOCYTE # 1.5 TH/MM3 (1.0-4.8); MEAN CELL VOLUME 92.8 FL (80.0-100.0); MEAN CORPUSCULAR HEMOGLOBIN 30.9 PG (27.0-34.0); MEAN CORPUSCULAR HGB CONC 33.3 % (32.0-36.0); MEAN PLATELET VOLUME 8.3 FL (7.0-11.0); MONO % 10.5 % (0.0-8.0); NEUT % 80.7 % (16.0-70.0); PLATELET COUNT 216 TH/MM3 (150-450); RED BLOOD COUNT 3.55 MIL/MM3 (4.50-5.90); RED CELL DISTRIBUTION WIDTH 14.1 % (11.6-17.2); WHITE BLOOD COUNT 19.4 TH/MM3 (4.0-11.0)
--- NOTE | 2017-05-30 06:25 | RADRPT ---
EXAM DATE/TIME: 05/30/2017 04:45 [facility] COMPARISON: CT THORAX W CONTRAST, May 26, 2017, 10:55. CHEST SINGLE AP, May 29, 2017, 4:44. INDICATIONS : Pneumonia MEDICAL HISTORY : None. SURGICAL HISTORY : None. ENCOUNTER: Subsequent ACUITY: 1 week PAIN SCORE: Non-responsive. LOCATION: Bilateral chest FINDINGS: Left subclavian central line and pigtail thoracostomy tubes remain in place. Minimal basilar parenchy mal opacities persist. Cardiac contour is grossly unchanged. CONCLUSION: Stable chest appearance. Giovanni Hernandez MD on May 30, 2017 at 6:21 Board Certified Radiologist. This report was verified electronically.
[2017-05-30] MEDS: hydrALAZINE HCL 20 MG/ML VIAL IV PUSH PRN (06:42)
[2017-05-30 06:50] LABS: ALBUMIN 1.6 GM/DL (3.4-5.0); AST (GOT) 25 U/L (15-37); BICARBONATE 25.9 MEQ/L (21.0-32.0); BLOOD UREA NITROGEN 19 MG/DL (7-18); CALCIUM 8.2 MG/DL (8.5-10.1); CHLORIDE 99 MEQ/L (98-107); CREATININE 0.92 MG/DL (0.60-1.30); GLOMERULAR FILTRATION RATE 82 ML/MIN (>89); GLUCOSE,RANDOM 75 MG/DL (74-106); MAGNESIUM 2.1 MG/DL (1.5-2.5); SODIUM (NA) 133 MEQ/L (136-145)
[2017-05-30 06:51] LABS: ALT (GPT) 19 U/L (12-78)
[2017-05-30 07:05] LABS: ALKALINE PHOSPHATASE 113 U/L (45-117); DIGOXIN 0.7 NG/ML (0.8-2.0); PHOSPHORUS 3.9 MG/DL (2.5-4.9); TOTAL BILIRUBIN ADULT 1.3 MG/DL (0.2-1.0); TOTAL PROTEIN 6.2 GM/DL (6.4-8.2)
--- NOTE | 2017-05-30 07:28 | HHI.CCPN ---
Subjective Remarks/Hospital Course Patient is a 66-year-old male with history of anxiety, arthritis, substance abuse who was initially admitted to hospitalist service with altered mentation, and back pain. Found to have UDS positive for cocaine. In the ED patient was anxious and combative. Initially admitted to the medical floor. WBC 14.2 with bandemia, lactic acid 3.4, BUN/abdomen 27/1.49. Patient was given IV fluids, started on Cefepime and vanc but he continued to become more combative restless and altered. Patient was moved to the ICU and I immediately evaluated him. Patient is in four point restraints. He was unable to communicate, very agitated. Heart rate is in 160s rhythm appears to be A. fib with RVR. Patient was given 2 mg IV morphine and 2 mg IV Versed. He still intermittently agitated and started him on Precedex infusion. Patient is intermittently apneic but wakes up to painful stimuli. Because of severe agitation and drug withdrawal I am unable to get any additional history 05/23/17: Patient remains confused but intermittently oriented to person and somewhat place. Continues to repeat same words (Echolalia). Blood cultures GPC 3/4 bottles. Echo pending, also will proceed with LP. Change Cefepime to Rocephin, Add ampicillin 05/24/17: Continues to be septic encephalopathy. Blood cultures growing MRSA. Echo pending, but circled limited I did not see any vegetation. LP findings consistent with bacterial meningitis 05/25/17: Remains critically ill but stable. Encephalopathy slowly improving, on weaning doses of Precedex. Afib with RVR, re start Cardizem. LEXIE today to rule out endocarditis. 05/26/17: Patient remains intermittently agitated tachycardic tachypneic. Weaned off Precedex. In A. fib with RVR Cardizem IV push and Lopressor IV push given without response. Start Cardizem infusion. CT shows bilateral large pleural effusions because of MRSA bacteremia needs to be drained. CT abdomen pelvis probable L2-L3 discitis. Discussed with radiologist Dr. Brown. Discussed with daughter, will proceed with intubation and possible biopsy 05/27/17: Patient was intubated yesterday for worsening agitation respiratory distress and also to facilitate L2-L3, CT-guided needle biopsy to rule out discitis. Blood cultures from 05/25/17 growing GPC most likely MRSA. Recommend bacteremia could be related to the L2-L3 discitis. Patient remains critically ill. Remains in atrial fibrillation with rate controlled. Cannot anticoagulate due to anticipated procedures (lumbar disc biopsy). Started on D5 1/2NS for hypoglycemia 05/28/17: Remains intubated sedated, not following commands while on sedation. CT of the head done overnight for unequal pupils-no acute findings. Had bilateral chest tubes placed yesterday 1.6 L output combined. Urine output excellent 3 L. Daptomycin added yesterday by ID, continue vancomycin. WBC count 16.4 today from 11.8. No fever. Repeat blood cultures sent today 05/29: Extubated without competition. Currently on nasal cannula. Currently vancomycin for MRSA/discitis. Neurosurgery was consulted. Bilateral chest tubes in place Subjective 05/30: Resting comfortable in bed in no acute distress. MAXIMUM TEMPERATURE 100.4. White blood cell count decreasing. Neurosurgery recommended no surgical intervention at this time. Okay from a bed. Decreased output from chest tubes. On nasal cannula. More awake and attentive today. Objective Vital Signs Date Time Temp Pulse Resp B/P (MAP) Pulse Ox O2 Delivery O2 Flow Rate FiO2 05/30/17 02:00 90 05/30/17 00:00 100.4 33 163/78 (106) 93 05/29/17 19:00 Room Air 05/29/17 08:00 2.00 05/28/17 11:11 40 Result Diagram: 05/30/17 0600 05/30/17 0600 Other Results Microbiology Date/Time Source Procedure Growth Status 05/28/17 05:22 Blood Peripheral Aerobic Blood Culture - Preliminary NO GROWTH IN 1 DAY Resulted 05/28/17 05:22 Blood Peripheral Anaerobic Blood Culture - Preliminary NO GROWTH IN 1 DAY Resulted 05/27/17 15:45 Fluid Pleural Fluid Fungal Smear - Final NO FUNGAL ELEMENTS SEEN. Resulted 05/27/17 15:45 Fluid Pleural Fluid Fungal Culture Pending Resulted 05/27/17 11:05 Abscess Back Fungal Smear - Final NO FUNGAL ELEMENTS SEEN. Resulted 05/27/17 11:05 Abscess Back Fungal Culture Pending Resulted Imaging Last Impressions Chest X-Ray 05/30/17 0600 Signed Impressions: Service Date/Time: Tuesday, May 30, 2017 04:45 - CONCLUSION: Stable chest appearance. Giovanni Hernandez MD Head CT 05/28/17 0000 Signed Impressions: Service Date/Time: May 01:16 - CONCLUSION: 1. No intracranial abnormality is seen. 2. Ethmoid and sphenoid sinus disease. Giovanni Gomez MD Needle Biopsy/Aspiration X-Ray 05/27/17 0000 Signed Impressions: Service Date/Time: Saturday, May 27, 2017 12:01 - CONCLUSION: Uncomplicated L2-L3 disc aspiration as above. Armando Ennis Jr., MD Chest CT 05/26/17 0000 Signed Impressions: Service Date/Time: Friday, May 26, 2017 10:55 - CONCLUSION: Moderate sized bilateral pleural effusions with small areas of patchy consolidation as well as passive atelectasis. This is a new finding from the prior chest x-ray. Noncardiogenic pulmonary edema versus infectious etiology. Armando Ennis Jr., MD Abdomen/Pelvis CT 05/26/17 0000 Signed Impressions: Service Date/Time: Friday, May 26, 2017 10:55 - CONCLUSION: Definite retroperitoneal inflammation around the abdominal aorta as well as extensive small lymph nodes throughout the retroperitoneum. There is also free fluid in both paracolic gutters right greater than left. I was initially concerning about a possible discitis at L2-3 with some cystic change along the endplates, particularly L2-3. Large bilateral pleural effusion with passive atelectasis. Sean Brown MD Upper Extremity Ultrasound 05/25/17 0000 Signed Impressions: Service Date/Time: Thursday, May 25, 2017 19:27 - CONCLUSION: Nonocclusive thrombus of the cephalic and basilic veins without evidence of proximal propagation. Armando Peterson MD Thoracic Spine MRI 05/24/17 0000 Signed Impressions: Service Date/Time: Wednesday, May 24, 2017 09:12 - CONCLUSION: 1. Minimal disc osteophyte complexes at T7-8, T8-9 and T9-10. 2. No spinal stenosis, focal disc herniation or significant neural foraminal narrowing. 3. No enhancing abscess collection. Abilio Eastman MD Lumbar Spine MRI 05/24/17 0000 Signed Impressions: Service Date/Time: Wednesday, May 24, 2017 09:12 - CONCLUSION: 1. Mild spinal stenosis and mild to moderate bilateral narrowing at L2-3, L3-4 and L4- 5. 2. Mild spinal stenosis and mild bilateral foraminal narrowing at L1-2. 3. Diffuse degenerative disease throughout the lumbar spine. 4. No evidence of enhancing abscess. Abilio Eastman MD Cervical Spine MRI 05/24/17 0000 Signed Impressions: Service Date/Time: Wednesday, May 24, 2017 09:12 - CONCLUSION: 1. Mild bilateral foraminal narrowing at C3-4, C4-5, C5-6 and C6-7. 2. No enhancing abscess. 3. Reversal of the normal cervical lordosis. 4. Diffuse cervical spondylosis from C3-C7. Abilio Eastman MD Brain MRI 05/24/17 0000 Signed Impressions: Service Date/Time: Wednesday, May 24, 2017 09:12 - CONCLUSION: 1. Mild periventricular white matter small vessel ischemic changes are noted bilaterally. 2. No acute infarct, acute hemorrhage, mass effect or extra- axial fluid collections. 3. No abnormal enhancing mass lesion. Abilio Eastman MD Objective Remarks GENERAL: 66-year-old male, currently resting in bed on nasal cannula in no acute distress SKIN: Well-perfused HEAD: Atraumatic. Normocephalic. No temporal or scalp tenderness. EYES: Pupils equal round and reactive about 3 Herrmann's bilaterally and reactive. ENT: Orotracheally intubated NECK: Trachea midline. No JVD or lymphadenopathy. Supple No neck stiffness CARDIOVASCULAR: RRR. S1, S2 no S4. RESPIRATORY: Bilateral course breath sounds and diminished at the bases. Bilateral pigtails with 0.06 L combined overnight GASTROINTESTINAL: Abdomen soft, non-tender, nondistended. MUSCULOSKELETAL: Difficult to asses for back tenderness, due to altered mentation. Right hand dorsum is warm with erythema NEUROLOGICAL: Cranial nerves II through XII grossly intact. Wiggles toes bilateral. Follows commands with upper extremities. Pupils are equal round reactive Urinary Catheter: Yes Assessment to: Continue Beauchamp insert reason: Prolonged Immobilization Vascular Central Line Catheter: Yes Assessment to: Continue Date of Insertion: May 27, 2017 Line: Central Venous Catheter Side: Left Location: Subclavian A/P Assessment and Plan NEURO/PSYCH: Bacterial meningitis Severe encephalopathy UDS positive for cocaine MRSA L2-L3 discitis Substance abuse with severe withdrawal - Delirium and encephalopathy secondary to severe sepsis and drug withdrawal - Urine drug screen positive for cocaine, history of IV opiate abuse - Currently on haloperidol 5 mg IV every 6 hours when necessary agitation - Currently morphine sulfate 2 mg every 3 hours. Pain 6 or 10 Neurosurgery consultation for discitis recommended no surgical intervention. Okay out of bed. - [facility] protocol Continue thiamine - MRI brain no acute finding. MRI spine no evidence of abscess, but CT abdomen showed possible L2-L3 discitis RESP: Large bilateral transudative pleural effusions s/p pigtail chest tube placement - Intubated and placed on mechanical ventilation 05/26/17, due to respiratory distress agitation and also to facilitate biopsy procedure. Extubated 05/28 - Nasal cannula to maintain saturations greater than equal to 92% Incentive spirometry while awake -Albuterol/ipratropium aerosols scheduled q6 and albuterol aerosols every 2 hours when necessary dyspnea - Moderate to large bilateral pleural effusions,s/p bilateral chest tube placement 05/27/17, 0.06 L output CV: A. fib with RVR - normal sinus rhythm - D5-1/2NS for hypoglycemia @ 30 ml per hour. - Currently on digoxin 0.125 mg IV daily and metoprolol 5 mg IV every 6 hours for rate control. Also diltiazem 60 mg every 6 hours. Intermittently normal sinus rhythm.. Level 0.7 this AM - Atrial fibrillation is most likely from drug withdrawal will not anticoagulate due to lumbar disc biopsy 05/27, and patient is a poor candidate for long anticoagulation due to alcohol and drug dependence -Okayed low-dose aspirin per invasive radiology - 2-D echo NL EF, Dr. An consulted for LEXIE-negative for vegetation, clot GI: Hepatitis C antibody positive Hypoalbuminemia Elevated total bilirubin -Clear liquid diet. Advance as tolerated per speech therapy -. IV pantoprazole - Docusate sodium/senna 1 tablet twice a day bowel regimen Renal/: - Monitor renal function closely. - Aggressive fluid resuscitation - Monitor CPK ID: Severe sepsis with MRSA bacteremia. L2-L3 discitis - Continue meningitic doses of Vancomycin, Daptomycin added 05/27 due to vanc DASHAWN 2 - ID Dr. Hernandez. LP findings consistent with bacterial meningitis - CSF cx neg to date, but LP was done after 24 hours on ABX - [address] abd shows ? L2-L3 discitis. f/u lumbar disc biopsy, culture HEME: Leukocytosis Normocytic anemia - Leukocytosis from sepsis. Monitor CBC, CMP ENDO/FEN: Hypoglycemia Hyponatremia SSI with Accu-Cheks every 4 hours to maintain euglycemia/low regimen Novulog Currently on D5 normal saline - Electrolyte replacement per protocol PROPH: - Bilateral lower extremity SCDs. Heparin subcutaneous/pantoprazole LINES: -CVL left subclavian 05/27 Level II follow-up Ehsan Holland MD May 30, 2017 07:28
[2017-05-30] MEDS: CHLORHEXIDINE 0.12% (ORAL KIT) 15 ML CUP MT SCH ×2 (08:00→20:00)
[2017-05-30] MEDS: D5-NS + KCL 20 MEQ INJ 1,000 ML IV SCH (10:06)
[2017-05-30] MEDS: PANTOPRAZOLE SOD 20 MG DELAYED RELEASE TAB PO SCH (10:08)
[2017-05-30] MEDS: DIGOXIN 0.5 MG/2 ML VIAL IV PUSH SCH (10:08)
[2017-05-30] MEDS: DOCUSATE SODIUM 50 MG/SENNA 8.6 MG TAB PO SCH ×2 (10:08→21:40)
[2017-05-30] MEDS: ASPIRIN 81 MG CHEW TAB CHEW SCH (10:08)
[2017-05-30] MEDS: ENOXAPARIN SODIUM 40 MG/0.4 ML SYRINGE SQ SCH (10:09)
[2017-05-30] MEDS: SODIUM CHLORIDE 0.9% FLUSH 10 ML FLUSH IV FLUSH SCH ×2 (10:09→21:46)
[2017-05-30] MEDS: DILTIAZEM HCL 90 MG TAB PO SCH ×4 (10:12→21:40)
[2017-05-30] MEDS: THIAMINE INJ 100 MG in SODIUM CHLORIDE 0.9% INJ 100 ML IV SCH (10:13)
--- NOTE | 2017-05-30 13:42 | PD.PROCEDR ---
Procedure Note Procedure DATE: 05/30/2017 PROCEDURE: Right femoral arterial catheter placement INDICATION: Hemodynamic access DETAILS OF PROCEDURE The patient was placed in supine position. The skin was cleansed with Chloraprep. Additional barrier precautions included large sterile drape, sterile gloves, sterile gown, face mask, and hat. 1% lidocaine was used for local anesthesia. Under direct ultrasound guidance and on the second attempt, the artery was accessed with an introducer needle. The guide wire was advanced. Using Seldinger technique 20 gauge arterial catheter was placed. The guide wire was removed. The catheter was connected to a transducer line and flushed with saline. The video monitor displayed normal arterial wave forms. The catheter was secured with 2-0 silk. A sterile dressing with antibiotic disc was applied. ESTIMATED BLOOD LOSS: minimal COMPLICATIONS: None Ehsan Holland MD May 30, 2017 13:42
[2017-05-30] MEDS: VANCOMYCIN 1,500 MG/NS 500 ML IV SCH ×2 (17:06)
[2017-05-30] MEDS ORDERED: ALTEPLASE RECOMBINANT 2 MG VIAL INTRACATH ONE (17:45)
[2017-05-30] MEDS: LABETALOL HCL 100 MG/20 ML VIAL IV PRN (17:59)
[2017-05-30] MEDS: DEXTROSE 50% IN WATER 50 ML VIAL(D50) IV PUSH PRN (21:41)
[2017-05-31] VITALS (14 sets, daily range): BP systolic 119–173; BP diastolic 58–81; PULSE 70–94; RESP 20–25; TEMP 97.9–101.2; O2SAT 93–97
[2017-05-31] MEDS: RESP: ALBUTEROL 2.5 MG/IPRATROPIUM 0.5 MG NEB (SCH) NEB ×4 (03:06→20:35)
[2017-05-31] MEDS: METOPROLOL TARTRATE 5 MG/5 ML VIAL IV PUSH SCH ×4 (03:46→21:43)
[2017-05-31] MEDS: INSULIN NovoLIN REGULAR SUPPLEMENTAL SCALE SQ SCH ×6 (03:55→20:00)
[2017-05-31 04:18] LABS: AUTOMATED NEUTROPHIL # 12.9 TH/MM3 (1.8-7.7); BASOPHIL # 0.1 TH/MM3 (0-0.2); BASOPHIL % 0.5 % (0.0-2.0); EOSINOPHIL # 0.2 TH/MM3 (0-0.4); EOSINOPHIL % 1.2 % (0.0-4.0); HEMATOCRIT 30.3 % (39.0-51.0); HEMOGLOBIN 10.1 GM/DL (13.0-17.0); LYMPH % 7.9 % (9.0-44.0); LYMPHOCYTE # 1.3 TH/MM3 (1.0-4.8); MEAN CELL VOLUME 93.9 FL (80.0-100.0); MEAN CORPUSCULAR HEMOGLOBIN 31.3 PG (27.0-34.0); MEAN CORPUSCULAR HGB CONC 33.4 % (32.0-36.0); MEAN PLATELET VOLUME 8.4 FL (7.0-11.0); MONO % 12.6 % (0.0-8.0); MONOCYTE # 2.1 TH/MM3 (0-0.9); NEUT % 77.8 % (16.0-70.0); PLATELET COUNT 262 TH/MM3 (150-450); RED BLOOD COUNT 3.23 MIL/MM3 (4.50-5.90); RED CELL DISTRIBUTION WIDTH 13.5 % (11.6-17.2); WHITE BLOOD COUNT 16.5 TH/MM3 (4.0-11.0)
[2017-05-31 04:45] LABS: ALBUMIN 1.5 GM/DL (3.4-5.0); ALKALINE PHOSPHATASE 116 U/L (45-117); ALT (GPT) 17 U/L (12-78); AST (GOT) 27 U/L (15-37); BICARBONATE 26.9 MEQ/L (21.0-32.0); BLOOD UREA NITROGEN 20 MG/DL (7-18); CALCIUM 7.6 MG/DL (8.5-10.1); CHLORIDE 101 MEQ/L (98-107); CREATININE 0.95 MG/DL (0.60-1.30); GLOMERULAR FILTRATION RATE 79 ML/MIN (>89); GLUCOSE,RANDOM 325 MG/DL (74-106); MAGNESIUM 2.2 MG/DL (1.5-2.5); PHOSPHORUS 3.6 MG/DL (2.5-4.9); SODIUM (NA) 135 MEQ/L (136-145); TOTAL BILIRUBIN ADULT 0.9 MG/DL (0.2-1.0)
[2017-05-31] MEDS: D5-NS + KCL 20 MEQ INJ 1,000 ML IV SCH ×2 (05:52→12:37)
[2017-05-31] MEDS: LABETALOL HCL 100 MG/20 ML VIAL IV PRN (06:03)
--- NOTE | 2017-05-31 06:20 | RADRPT ---
EXAM DATE/TIME: 05/31/2017 04:04 [facility] COMPARISON: CHEST SINGLE AP, May 30, 2017, 4:45. INDICATIONS : Respiratory failure. MEDICAL HISTORY : None. SURGICAL HISTORY : None. ENCOUNTER: Subsequent ACUITY: 1 week PAIN SCORE: Non-responsive. LOCATION: Bilateral chest FINDINGS: Bilateral pigtail thoracostomy tubes and left subclavian central line remain in place. Aeration is st able with mild probable atelectasis in the bases. Cardiac contours are unchanged. CONCLUSION: No significant interval change Giovanni Hernandez MD on May 31, 2017 at 6:18 Board Certified Radiologist. This report was verified electronically.
[2017-05-31] MEDS: CHLORHEXIDINE 0.12% (ORAL KIT) 15 ML CUP MT SCH (08:00)
[2017-05-31] MEDS: MORPHINE SULFATE 2 MG/ML INJ IV PUSH PRN ×2 (08:23→12:46)
[2017-05-31] MEDS: DIGOXIN 0.5 MG/2 ML VIAL IV PUSH SCH (08:24)
[2017-05-31] MEDS: DILTIAZEM HCL 90 MG TAB PO SCH ×4 (08:24→20:19)
[2017-05-31] MEDS: ASPIRIN 81 MG CHEW TAB CHEW SCH (08:24)
[2017-05-31] MEDS: SODIUM CHLORIDE 0.9% FLUSH 10 ML FLUSH IV FLUSH SCH ×2 (08:25→20:19)
[2017-05-31] MEDS: DOCUSATE SODIUM 50 MG/SENNA 8.6 MG TAB PO SCH ×2 (08:25→20:19)
[2017-05-31] MEDS: PANTOPRAZOLE SOD 20 MG DELAYED RELEASE TAB PO SCH (08:25)
[2017-05-31] MEDS: THIAMINE INJ 100 MG in SODIUM CHLORIDE 0.9% INJ 100 ML IV SCH (09:09)
[2017-05-31] MEDS ORDERED: PHARMACY ORDERED LAB ONE (11:45)
[2017-05-31] MEDS: VANCOMYCIN 1,500 MG/NS 500 ML IV SCH ×2 (12:37)
[2017-05-31] MEDS: HEPARIN SODIUM - SQ 10,000 UNITS/ML VIAL SQ SCH ×2 (14:40→21:43)
[2017-05-31] MEDS: LORazepam 2 MG TAB PO PRN (14:40)
--- NOTE | 2017-05-31 15:38 | HHI.CCPN ---
Subjective Remarks/Hospital Course Patient is a 66-year-old male with history of anxiety, arthritis, substance abuse who was initially admitted to hospitalist service with altered mentation, and back pain. Found to have UDS positive for cocaine. In the ED patient was anxious and combative. Initially admitted to the medical floor. WBC 14.2 with bandemia, lactic acid 3.4, BUN/abdomen 27/1.49. Patient was given IV fluids, started on Cefepime and vanc but he continued to become more combative restless and altered. Patient was moved to the ICU and I immediately evaluated him. Patient is in four point restraints. He was unable to communicate, very agitated. Heart rate is in 160s rhythm appears to be A. fib with RVR. Patient was given 2 mg IV morphine and 2 mg IV Versed. He still intermittently agitated and started him on Precedex infusion. Patient is intermittently apneic but wakes up to painful stimuli. Because of severe agitation and drug withdrawal I am unable to get any additional history 05/23/17: Patient remains confused but intermittently oriented to person and somewhat place. Continues to repeat same words (Echolalia). Blood cultures GPC 3/4 bottles. Echo pending, also will proceed with LP. Change Cefepime to Rocephin, Add ampicillin 05/24/17: Continues to be septic encephalopathy. Blood cultures growing MRSA. Echo pending, but circled limited I did not see any vegetation. LP findings consistent with bacterial meningitis 05/25/17: Remains critically ill but stable. Encephalopathy slowly improving, on weaning doses of Precedex. Afib with RVR, re start Cardizem. LEXIE today to rule out endocarditis. 05/26/17: Patient remains intermittently agitated tachycardic tachypneic. Weaned off Precedex. In A. fib with RVR Cardizem IV push and Lopressor IV push given without response. Start Cardizem infusion. CT shows bilateral large pleural effusions because of MRSA bacteremia needs to be drained. CT abdomen pelvis probable L2-L3 discitis. Discussed with radiologist Dr. Brown. Discussed with daughter, will proceed with intubation and possible biopsy 05/27/17: Patient was intubated yesterday for worsening agitation respiratory distress and also to facilitate L2-L3, CT-guided needle biopsy to rule out discitis. Blood cultures from 05/25/17 growing GPC most likely MRSA. Recommend bacteremia could be related to the L2-L3 discitis. Patient remains critically ill. Remains in atrial fibrillation with rate controlled. Cannot anticoagulate due to anticipated procedures (lumbar disc biopsy). Started on D5 1/2NS for hypoglycemia 05/28/17: Remains intubated sedated, not following commands while on sedation. CT of the head done overnight for unequal pupils-no acute findings. Had bilateral chest tubes placed yesterday 1.6 L output combined. Urine output excellent 3 L. Daptomycin added yesterday by ID, continue vancomycin. WBC count 16.4 today from 11.8. No fever. Repeat blood cultures sent today 05/29: Extubated without competition. Currently on nasal cannula. Currently vancomycin for MRSA/discitis. Neurosurgery was consulted. Bilateral chest tubes in place 05/30: Resting comfortable in bed in no acute distress. MAXIMUM TEMPERATURE 100.4. White blood cell count decreasing. Neurosurgery recommended no surgical intervention at this time. Okay out of bed. Decreased output from chest tubes. On nasal cannula. More awake and attentive today. Subjective 05/31: Tmax 99.2. Currently afebrile. Head fecal containment device placed due to diarrhea. Elevated blood sugar today. Objective Vital Signs Date Time Temp Pulse Resp B/P (MAP) Pulse Ox O2 Delivery O2 Flow Rate FiO2 05/31/17 13:00 20 05/31/17 12:00 97.9 80 137/67 (90) 97 05/31/17 09:51 21 05/31/17 08:00 Room Air 05/30/17 19:00 2.00 Intake and Output 05/31/17 05/31/17 06/01/17 08:00 16:00 00:00 Intake Total 1000 ml 350 ml Output Total 1710 ml Balance -710 ml 350 ml Result Diagram: 05/31/17 0342 05/31/17 0342 Other Results Microbiology Date/Time Source Procedure Growth Status 05/28/17 05:22 Blood Peripheral Aerobic Blood Culture - Preliminary NO GROWTH IN 3 DAYS Resulted 05/28/17 05:22 Blood Peripheral Anaerobic Blood Culture - Preliminary NO GROWTH IN 3 DAYS Resulted 05/27/17 15:45 Fluid Pleural Fluid Fungal Smear - Final NO FUNGAL ELEMENTS SEEN. Resulted 05/27/17 15:45 Fluid Pleural Fluid Fungal Culture Pending Resulted 05/27/17 11:05 Abscess Back Fungal Smear - Final NO FUNGAL ELEMENTS SEEN. Resulted 05/27/17 11:05 Abscess Back Fungal Culture Pending Resulted Imaging Last Impressions Chest X-Ray 05/31/17 0600 Signed Impressions: Service Date/Time: Wednesday, May 31, 2017 04:04 - CONCLUSION: No significant interval change Giovanni Hernandez MD Head CT 05/28/17 0000 Signed Impressions: Service Date/Time: May 01:16 - CONCLUSION: 1. No intracranial abnormality is seen. 2. Ethmoid and sphenoid sinus disease. Giovanni Gomez MD Needle Biopsy/Aspiration X-Ray 05/27/17 0000 Signed Impressions: Service Date/Time: Saturday, May 27, 2017 12:01 - CONCLUSION: Uncomplicated L2-L3 disc aspiration as above. Armando Ennis Jr., MD Chest CT 05/26/17 0000 Signed Impressions: Service Date/Time: Friday, May 26, 2017 10:55 - CONCLUSION: Moderate sized bilateral pleural effusions with small areas of patchy consolidation as well as passive atelectasis. This is a new finding from the prior chest x-ray. Noncardiogenic pulmonary edema versus infectious etiology. Armando Ennis Jr., MD Abdomen/Pelvis CT 05/26/17 0000 Signed Impressions: Service Date/Time: Friday, May 26, 2017 10:55 - CONCLUSION: Definite retroperitoneal inflammation around the abdominal aorta as well as extensive small lymph nodes throughout the retroperitoneum. There is also free fluid in both paracolic gutters right greater than left. I was initially concerning about a possible discitis at L2-3 with some cystic change along the endplates, particularly L2-3. Large bilateral pleural effusion with passive atelectasis. Sean Brown MD Upper Extremity Ultrasound 05/25/17 0000 Signed Impressions: Service Date/Time: Thursday, May 25, 2017 19:27 - CONCLUSION: Nonocclusive thrombus of the cephalic and basilic veins without evidence of proximal propagation. Armando Peterson MD Thoracic Spine MRI 05/24/17 0000 Signed Impressions: Service Date/Time: Wednesday, May 24, 2017 09:12 - CONCLUSION: 1. Minimal disc osteophyte complexes at T7-8, T8-9 and T9-10. 2. No spinal stenosis, focal disc herniation or significant neural foraminal narrowing. 3. No enhancing abscess collection. Abilio Eastman MD Lumbar Spine MRI 05/24/17 0000 Signed Impressions: Service Date/Time: Wednesday, May 24, 2017 09:12 - CONCLUSION: 1. Mild spinal stenosis and mild to moderate bilateral narrowing at L2-3, L3-4 and L4- 5. 2. Mild spinal stenosis and mild bilateral foraminal narrowing at L1-2. 3. Diffuse degenerative disease throughout the lumbar spine. 4. No evidence of enhancing abscess. Abilio Eastman MD Cervical Spine MRI 05/24/17 0000 Signed Impressions: Service Date/Time: Wednesday, May 24, 2017 09:12 - CONCLUSION: 1. Mild bilateral foraminal narrowing at C3-4, C4-5, C5-6 and C6-7. 2. No enhancing abscess. 3. Reversal of the normal cervical lordosis. 4. Diffuse cervical spondylosis from C3-C7. Abilio Eastman MD Brain MRI 05/24/17 0000 Signed Impressions: Service Date/Time: Wednesday, May 24, 2017 09:12 - CONCLUSION: 1. Mild periventricular white matter small vessel ischemic changes are noted bilaterally. 2. No acute infarct, acute hemorrhage, mass effect or extra- axial fluid collections. 3. No abnormal enhancing mass lesion. Abilio Eastman MD Objective Remarks GENERAL: 66-year-old male, currently resting in bed on nasal cannula in no acute distress SKIN: Well-perfused HEAD: Atraumatic. Normocephalic. No temporal or scalp tenderness. EYES: Pupils equal round and reactive about 3 Herrmann's bilaterally and reactive. ENT: Orotracheally intubated NECK: Trachea midline. No JVD or lymphadenopathy. Supple No neck stiffness CARDIOVASCULAR: RRR. S1, S2 no S4. RESPIRATORY: Bilateral course breath sounds and diminished at the bases. Bilateral pigtails with 0.11 L combined overnight GASTROINTESTINAL: Abdomen soft, non-tender, nondistended. MUSCULOSKELETAL: Difficult to asses for back tenderness, due to altered mentation. Right hand dorsum is warm with erythema NEUROLOGICAL: Cranial nerves II through XII grossly intact. Wiggles toes bilateral. Follows commands with upper extremities. Pupils are equal round reactive Vascular Central Line Catheter: Yes Assessment to: Continue Date of Insertion: May 27, 2017 Line: Central Venous Catheter Side: Left Location: Subclavian A/P Assessment and Plan NEURO/PSYCH: Bacterial meningitis Severe encephalopathy UDS positive for cocaine MRSA L2-L3 discitis Substance abuse with severe withdrawal - Delirium and encephalopathy secondary to severe sepsis and drug withdrawal - Urine drug screen positive for cocaine, history of IV opiate abuse - Currently on haloperidol 5 mg IV every 6 hours when necessary agitation - Currently morphine sulfate 2 mg every 3 hours. Pain 6 or 10 Neurosurgery consultation for discitis recommended no surgical intervention. Okay out of bed. - [facility] protocol Continue thiamine - MRI brain no acute finding. MRI spine no evidence of abscess, but CT abdomen showed possible L2-L3 discitis RESP: Large bilateral transudative pleural effusions s/p pigtail chest tube placement - Intubated and placed on mechanical ventilation 05/26/17, due to respiratory distress agitation and also to facilitate biopsy procedure. Extubated 05/28 - Nasal cannula to maintain saturations greater than equal to 92% Incentive spirometry while awake -Albuterol/ipratropium aerosols scheduled q6 and albuterol aerosols every 2 hours when necessary dyspnea - Moderate to large bilateral pleural effusions,s/p bilateral chest tube placement 05/27/17, 60 cc right, 50 cc left. CV: A. fib with RVR - normal sinus rhythm - D5-1/2NS for hypoglycemia @ 30 ml per hour. Discontinue today. - Currently on digoxin 0.125 mg IV daily and metoprolol 5 mg IV every 6 hours for rate control. Also diltiazem 60 mg every 6 hours. Intermittently normal sinus rhythm.. Level 0.7 this AM - Atrial fibrillation is most likely from drug withdrawal will not anticoagulate due to lumbar disc biopsy 05/27, and patient is a poor candidate for long anticoagulation due to alcohol and drug dependence -Okayed low-dose aspirin per invasive radiology - 2-D echo NL EF, Dr. An consulted for LEXIE-negative for vegetation, clot GI: Hepatitis C antibody positive Hypoalbuminemia Elevated total bilirubin -Clear liquid diet. Advance as tolerated per speech therapy -. IV pantoprazole - Docusate sodium/senna 1 tablet twice a day bowel regimen Renal/: - Monitor renal function closely. - Aggressive fluid resuscitation - Monitor CPK ID: Severe sepsis with MRSA bacteremia. L2-L3 discitis - Continue meningitic doses of Vancomycin, Daptomycin added 05/27 due to vanc DASHAWN 2 - ID Dr. Hernandez. LP findings consistent with bacterial meningitis - CSF cx neg to date, but LP was done after 24 hours on ABX - [address] abd shows ? L2-L3 discitis. f/u lumbar disc biopsy, culture HEME: Leukocytosis Normocytic anemia - Leukocytosis from sepsis. Monitor CBC, CMP ENDO/FEN: Hypoglycemia now hyperglycemic Hyponatremia SSI with Accu-Cheks every 4 hours to maintain euglycemia/low regimen Novulog Currently on D5 normal saline - Electrolyte replacement per protocol PROPH: - Bilateral lower extremity SCDs. Heparin subcutaneous/pantoprazole LINES: -CVL left subclavian 05/27 Level II follow-up Ehsan Holland MD May 31, 2017 15:38
[2017-06-01] VITALS (14 sets, daily range): BP systolic 129–159; BP diastolic 65–105; PULSE 76–99; RESP 11–24; TEMP 98.3–99.7; O2SAT 94–100
[2017-06-01] MEDS: MORPHINE SULFATE 2 MG/ML INJ IV PUSH PRN ×5 (01:46→20:55)
[2017-06-01] MEDS: RESP: ALBUTEROL 2.5 MG/IPRATROPIUM 0.5 MG NEB (SCH) NEB ×4 (03:22→20:28)
[2017-06-01] MEDS: INSULIN NovoLIN REGULAR SUPPLEMENTAL SCALE SQ SCH ×6 (04:00→21:00)
[2017-06-01] MEDS: METOPROLOL TARTRATE 5 MG/5 ML VIAL IV PUSH SCH ×2 (04:08→09:11)
[2017-06-01 04:48] LABS: HEMATOCRIT 28.9 % (39.0-51.0); HEMOGLOBIN 9.9 GM/DL (13.0-17.0); MEAN CORPUSCULAR HGB CONC 34.4 % (32.0-36.0); MEAN PLATELET VOLUME 8.7 FL (7.0-11.0); PLATELET COUNT 299 TH/MM3 (150-450); RED BLOOD COUNT 3.11 MIL/MM3 (4.50-5.90); RED CELL DISTRIBUTION WIDTH 13.9 % (11.6-17.2); WHITE BLOOD COUNT 14.7 TH/MM3 (4.0-11.0)
[2017-06-01 05:26] LABS: BICARBONATE 28.5 MEQ/L (21.0-32.0); CALCIUM 8.7 MG/DL (8.5-10.1); CREATININE 0.94 MG/DL (0.60-1.30); DIGOXIN 0.9 NG/ML (0.8-2.0); RANDOM VANCOMYCIN 18.4 COMMENT
[2017-06-01] MEDS: HEPARIN SODIUM - SQ 10,000 UNITS/ML VIAL SQ SCH ×3 (05:53→20:54)
[2017-06-01] MEDS: SODIUM CHLORIDE 0.9% FLUSH 10 ML FLUSH IV FLUSH SCH ×2 (09:00→21:00)
[2017-06-01] MEDS: THIAMINE INJ 100 MG in SODIUM CHLORIDE 0.9% INJ 100 ML IV SCH (09:10)
[2017-06-01] MEDS: PANTOPRAZOLE SOD 20 MG DELAYED RELEASE TAB PO SCH (09:10)
[2017-06-01] MEDS: ASPIRIN 81 MG CHEW TAB CHEW SCH (09:10)
[2017-06-01] MEDS: DILTIAZEM HCL 90 MG TAB PO SCH ×4 (09:10→20:56)
[2017-06-01] MEDS: DOCUSATE SODIUM 50 MG/SENNA 8.6 MG TAB PO SCH (09:10)
--- NOTE | 2017-06-01 09:57 | HHI.NSPN ---
(Onur [place]) History Chief Complaint: Low back pain, slightly better. (Onur [place]) Interval History 05/29: 66-year-old male who presented to the emergency room on 2016 with complaint of back pain. He was also noted to have altered mental status and confusion per his significant other which reportedly prompted a call to EMS. There is a note in his initial emergency room record that he may have received a heroin injection in his right arm a couple of days prior to presenting to the emergency room. His drug screen was positive for cocaine. He states that he developed progressive severe back pain approximately 1 week ago. He denies previous history of significant back pain, but does have a history of arthritis. He has not had any neck pain or stiffness. Denies any fevers or chills. Review of his records indicate that he was very agitated upon initial admission. He has remained rather confused during the hospitalization. 06/01: This morning the patient is awake and alert, visiting with a friend. He states his low back is painful but better and he feels he is doing better overall. He also states that his family and friends tell him the same thing. (Onur Montana) Exam Results 05/30/17 05/30/17 05/31/17 05/31/17 06/01/17 06/01/17 06:00 18:00 06:00 18:00 06:00 18:00 Intake Total 400 ml 600 ml 1000 ml 2048 ml 200 ml Output Total 2110 ml 1750 ml 1710 ml 1450 ml 1525 ml Balance -1710 ml -1150 ml -710 ml 598 ml -1325 ml Intake Oral 400 ml 600 ml 1060 ml 200 ml IV Total 1000 ml 988 ml Output Urine Total 2000 ml 1650 ml 1700 ml 1300 ml 1425 ml Stool Total 50 ml 50 ml Chest Tube Drainage Total 110 ml 100 ml 10 ml 100 ml 50 ml # Bowel Movements 0 2 1 Vital Signs Date Time Temp Pulse Resp B/P (MAP) Pulse Ox O2 Delivery O2 Flow Rate FiO2 06/01/17 07:43 98 21 06/01/17 06:00 92 06/01/17 04:00 83 06/01/17 04:00 98.3 83 21 129/65 (86) 95 06/01/17 02:00 79 06/01/17 00:00 99.7 80 23 132/65 (87) 95 06/01/17 00:00 80 05/31/17 22:00 76 05/31/17 20:36 97 21 05/31/17 20:00 86 05/31/17 20:00 99.0 91 25 140/71 (94) 96 05/31/17 19:00 95 Room Air 05/31/17 18:00 80 05/31/17 16:00 70 05/31/17 16:00 98.2 70 21 119/58 (78) 94 05/31/17 14:00 88 05/31/17 13:00 20 05/31/17 12:00 97.9 80 20 137/67 (90) 97 05/31/17 12:00 80 05/31/17 10:00 88 05/31/17 09:51 95 21 05/31/17 08:00 93 Room Air 05/31/17 08:00 78 05/31/17 08:00 99.2 78 24 131/80 (97) 93 05/31/17 06:00 92 05/31/17 04:00 90 05/31/17 04:00 99.0 90 25 173/81 (111) 96 05/31/17 02:00 94 05/31/17 00:00 92 05/31/17 00:00 101.2 92 21 162/79 (106) 95 05/30/17 22:00 94 05/30/17 20:40 96 21 05/30/17 20:00 84 05/30/17 20:00 100.4 84 23 158/84 (108) 96 05/30/17 19:00 Nasal Cannula 2.00 05/30/17 18:00 80 05/30/17 16:00 80 05/30/17 16:00 98.3 80 29 164/74 (104) 100 05/30/17 14:00 80 05/30/17 12:00 74 05/30/17 12:00 99.9 74 29 125/62 (83) 100 05/30/17 10:00 90 05/30/17 09:50 96 21 05/30/17 08:00 99.9 78 15 154/72 (99) 98 05/30/17 08:00 78 05/30/17 07:00 94 Nasal Cannula 2.00 05/30/17 06:00 100 05/30/17 04:00 89 05/30/17 04:00 98.6 94 32 150/70 (96) 96 05/30/17 02:00 90 05/30/17 00:00 87 05/30/17 00:00 100.4 98 33 163/78 (106) 93 05/29/17 22:00 102 05/29/17 20:00 99 05/29/17 20:00 100.4 98 31 151/70 (97) 98 05/29/17 19:00 Room Air 05/29/17 18:00 100 05/29/17 16:00 89 05/29/17 16:00 98.8 89 20 172/86 (114) 93 05/29/17 14:00 94 05/29/17 12:00 84 05/29/17 12:00 99.4 84 24 153/72 (99) 96 05/29/17 10:00 114 (Onur Montana) Physical Examination GENERAL: Awake & alert, readily interacts, affect essentially normal, no apparent distress. NECK: Midline cervical spine NTTP, no JVD, trachea midline. MUSCULOSKELETAL: Moves all extremities, no evident clubbing or deformity. Thoracic spine NTTP but lumbar spine is. NEUROLOGICAL: Awake & alert, oriented to person, place and day but not month. Speech is clear & appropriate but slow. Follows simple commands w/o difficulty. Sensation is intact to light touch to all extremities. Strength is 4 to 4+/5 to the upper extremities and 3+ to 4/5 to the lower extremities. Fine motor to hand moderately impaired. (Onur Montana) Lab, Micro, Other Results Recent Impressions Chest X-Ray 05/31/17599 Signed Impressions: Service Date/Time: Wednesday, May 31, 2017 04:04 - CONCLUSION: No significant interval change Giovanni Hernandez MD Chest X-Ray 05/30/17599 Signed Impressions: Service Date/Time: Tuesday, May 30, 2017 04:45 - CONCLUSION: Stable chest appearance. Giovanni Hernandez MD Laboratory Tests Test 05/30/17 05:20 05/30/17 06:00 05/30/17 22:13 05/31/17 01:25 White Blood Count 19.4 TH/MM3 Red Blood Count 3.55 MIL/MM3 Hemoglobin 10.9 GM/DL Hematocrit 32.9 % Mean Corpuscular Volume 92.8 FL Mean Corpuscular Hemoglobin 30.9 PG Mean Corpuscular Hemoglobin Concent 33.3 % Red Cell Distribution Width 14.1 % Platelet Count 216 TH/MM3 Mean Platelet Volume 8.3 FL Neutrophils (%) (Auto) 80.7 % Lymphocytes (%) (Auto) 7.8 % Monocytes (%) (Auto) 10.5 % Eosinophils (%) (Auto) 0.8 % Basophils (%) (Auto) 0.2 % Neutrophils # (Auto) 15.7 TH/MM3 Lymphocytes # (Auto) 1.5 TH/MM3 Monocytes # (Auto) 2.0 TH/MM3 Eosinophils # (Auto) 0.2 TH/MM3 Basophils # (Auto) 0.0 TH/MM3 CBC Comment DIFF FINAL Differential Comment Blood Urea Nitrogen 19 MG/DL Creatinine 0.92 MG/DL Random Glucose 75 MG/DL Total Protein 6.2 GM/DL Albumin 1.6 GM/DL Calcium Level 8.2 MG/DL Phosphorus Level 3.9 MG/DL Magnesium Level 2.1 MG/DL Alkaline Phosphatase 113 U/L Aspartate Amino Transf (AST/SGOT) 25 U/L Alanine Aminotransferase (ALT/SGPT) 19 U/L Total Bilirubin 1.3 MG/DL Sodium Level 133 MEQ/L Potassium Level 3.8 MEQ/L Chloride Level 99 MEQ/L Carbon Dioxide Level 25.9 MEQ/L Anion Gap 8 MEQ/L Estimat Glomerular Filtration Rate 82 ML/MIN Total Creatine Kinase 37 U/L Digoxin Level 0.7 NG/ML Lactic Acid Level 1.3 mmol/L 0.8 mmol/L Test 05/31/17 03:42 05/31/17 12:30 05/31/17 16:00 06/01/17 04:15 White Blood Count 16.5 TH/MM3 14.7 TH/MM3 Red Blood Count 3.23 MIL/MM3 3.11 MIL/MM3 Hemoglobin 10.1 GM/DL 9.9 GM/DL Hematocrit 30.3 % 28.9 % Mean Corpuscular Volume 93.9 FL 93.0 FL Mean Corpuscular Hemoglobin 31.3 PG 32.0 PG Mean Corpuscular Hemoglobin Concent 33.4 % 34.4 % Red Cell Distribution Width 13.5 % 13.9 % Platelet Count 262 TH/MM3 299 TH/MM3 Mean Platelet Volume 8.4 FL 8.7 FL Neutrophils (%) (Auto) 77.8 % Lymphocytes (%) (Auto) 7.9 % Monocytes (%) (Auto) 12.6 % Eosinophils (%) (Auto) 1.2 % Basophils (%) (Auto) 0.5 % Neutrophils # (Auto) 12.9 TH/MM3 Lymphocytes # (Auto) 1.3 TH/MM3 Monocytes # (Auto) 2.1 TH/MM3 Eosinophils # (Auto) 0.2 TH/MM3 Basophils # (Auto) 0.1 TH/MM3 CBC Comment DIFF FINAL Differential Comment Blood Urea Nitrogen 20 MG/DL 19 MG/DL Creatinine 0.95 MG/DL 0.94 MG/DL Random Glucose 325 MG/DL 103 MG/DL Total Protein 6.0 GM/DL Albumin 1.5 GM/DL Calcium Level 7.6 MG/DL 8.7 MG/DL Phosphorus Level 3.6 MG/DL Magnesium Level 2.2 MG/DL Alkaline Phosphatase 116 U/L Aspartate Amino Transf (AST/SGOT) 27 U/L Alanine Aminotransferase (ALT/SGPT) 17 U/L Total Bilirubin 0.9 MG/DL Sodium Level 135 MEQ/L 138 MEQ/L Potassium Level 3.9 MEQ/L 3.6 MEQ/L Chloride Level 101 MEQ/L 103 MEQ/L Carbon Dioxide Level 26.9 MEQ/L 28.5 MEQ/L Anion Gap 7 MEQ/L 7 MEQ/L Estimat Glomerular Filtration Rate 79 ML/MIN 80 ML/MIN Vancomycin Level Trough 23.5 MCG/ML Stool C. difficile Toxin (PCR) NEGATIVE Stl C. difficile Toxin Epiderm 027 PRESUMPTIVE NEGATIVE Random Vancomycin Level 18.4 COMMENT Digoxin Level 0.9 NG/ML (Onur [place]) Medical Decision Making Impression and Plan Impression: 1. Findings consistent with MRSA L2-3 discitis. No definite evidence of epidural abscess formation 2. Altered mental status. Possibly related to sepsis, meningitis, substance abuse with secondary encephalopathy. 3. Large bilateral pleural effusions-status post chest tube placement 4. Atrial fibrillation. Patient is doing well this morning and seems to have some improvement in his motor strength. Reviewed labs for today. Continued improvement in leukocytosis. Haemaglobin stable. Cardiac echo without evidence of significant abnormality. LEXIE negative for vegetation per report. Plan: Antibiotics per Infectious Disease. No surgical intervention for discitis anticipated at this point. May mobilize out of bed without a brace from neurosurgical standpoint. Plan follow-up imaging studies in the next 7-10 days to monitor evolution of the discitis. No contraindication for anticoagulation from neurosurgery standpoint (Onur Montana) Attending Statement Patient remains relatively awake and alert. Mild to moderate confusion and agitation Sensorimotor function mostly intact in the bilateral extremities Stable lower extremity neurologic exam (José Antonio Krause MD) Onur Montana Jun 01, 2017 09:57 José Antonio Krause MD Jun 05, 2017 20:18
--- NOTE | 2017-06-01 10:32 | HHI.IDPN ---
Note Infectious Disease Note Patient is sedated. Received morphine for pain. RN reports he was awake and alert and communicating before the morphine. On Nasal O2. Low grade fever. Has bilateral chest tubes. Post L2-3 disc space aspirate. Culture MRSA Blood culture has MRSA 05/25, 05/22. Blood culture 05/28 - no growth. CSF culture no growth. WBC elevated. Patient admitted to hospital with altered mental status. The patient was evaluated in the emergency department and he was complaining of lower back pain. The patient had positive, screen of the urine for cocaine. PAST MEDICAL HISTORY: 1. Arthritis 2. Anxiety. 3. Substance abuse. ALLERGIES NO KNOWN DRUG ALLERGIES. ANTIBIOTICS Vancomycin. Current Medications Medications (Trade) Dose Ordered Sig/Frandy Route PRN Reason Start Time Stop Time Status Last Admin Dose Admin Sodium Chloride (NS Flush) 2 ml UNSCH PRN IV FLUSH FLUSH AFTER USING IV ACCESS 05/22/17 06:15 Sodium Chloride (NS Flush) 2 ml BID IV FLUSH 05/22/17 09:00 06/01/17 09:00 Ondansetron HCl (Zofran Inj) 4 mg Q6H PRN IVP NAUSEA OR VOMITING 05/22/17 06:15 Acetaminophen (Tylenol) 650 mg Q6H PRN PO FEVER 05/22/17 06:15 Magnesium Hydroxide (Milk Of Magnesia Liq) 30 ml Q12H PRN PO Mild constipation 05/22/17 06:15 Sennosides (Senokot) 17.2 mg Q12H PRN PO Moderate constipation 05/22/17 06:15 Bisacodyl (Dulcolax Supp) 10 mg DAILY PRN RECTAL SEVERE CONSITIPATION 05/22/17 06:15 Lactulose (Lactulose Liq) 30 ml DAILY PRN PO SEVERE CONSITIPATION 05/22/17 06:15 Flumazenil (Romazicon Inj) 0.2 mg Q1M PRN IV PUSH SEE LABEL COMMENTS 05/22/17 11:30 Lorazepam (Ativan) 1 mg Q4H PRN PO CIWA 8 - 10 05/22/17 11:30 Lorazepam (Ativan) 2 mg Q2H PRN PO CIWA 11-14 05/22/17 11:30 05/31/17 14:40 Thiamine HCl 100 mg/Sodium Chloride 101 ml @ 101 mls/hr DAILY IV 05/22/17 13:00 06/01/17 09:10 Diltiazem HCl 125 mg/Sodium Chloride 125 ml @ 5 mls/hr TITRATE PRN IV Tachycardia 05/22/17 16:00 05/29/17 03:10 Pharmacy Profile Note 0 ml @ 0 mls/hr UNSCH OTHER 05/23/17 07:30 Future hold Haloperidol Lactate (Haldol Inj) 5 mg Q4H PRN IV agitation 05/24/17 08:15 05/25/17 23:08 Potassium Chloride 100 ml @ 50 mls/hr Q2H PRN IV For Potassium 2.8 - 3.2 mEq/L 05/24/17 08:15 Potassium Chloride 100 ml @ 50 mls/hr Q2H PRN IV For Potassium 2.8 - 3.2 mEq/L 05/24/17 08:15 05/25/17 08:00 Potassium Bicarb/ Potassium Chloride (K-Lyte Cl Eff) 50 meq UNSCH PRN PO For Potassium 3.3 - 3.5 mEq/L 05/24/17 08:15 05/25/17 19:20 Potassium Chloride 100 ml @ 25 mls/hr UNSCH PRN IV For Potassium 3.3 - 3.5 mEq/L 05/24/17 08:15 Potassium Chloride 100 ml @ 50 mls/hr Q2H PRN IV For Potassium 3.3 - 3.5 mEq/L 05/24/17 08:15 05/27/17 16:55 Magnesium Sulfate 4 gm/Sodium Chloride 100 ml @ 50 mls/hr UNSCH PRN IV For Magnesium 0.9 - 1.1 mg/dL 05/24/17 08:15 Magnesium Oxide (Mag-Ox) 800 mg UNSCH PRN PO For Magnesium 1.2 - 1.6 mg/dL 05/24/17 08:15 Magnesium Sulfate 2 gm/Sodium Chloride 100 ml @ 50 mls/hr UNSCH PRN IV For Magnesium 1.2 - 1.6 mg/dL 05/24/17 08:15 Potassium Phosphate (K-Phos) 2,000 mg Q4H PRN PO For Phosphorus < 2.5 mg/dL 05/24/17 08:15 Sodium Phosphate 30 mmol/Sodium Chloride 250 ml @ 42 mls/hr UNSCH PRN IV For Phosphorus < 2.5 mg/dL 05/24/17 08:15 Potassium Phosphate (K-Phos) 2,000 mg UNSCH PRN PO/TUBE SEE LABEL COMMENTS 05/24/17 08:15 Potassium Phosphate 30 mmol/ Sodium Chloride 260 ml @ 42 mls/hr UNSCH PRN IV SEE LABEL COMMENTS 05/24/17 08:15 05/26/17 13:23 Hydralazine HCl (Apresoline Inj) 20 mg Q6H PRN IV PUSH SYS BP GREATER THAN 170 MMHG 05/26/17 13:00 05/30/17 06:42 Dextrose (D50w (Vial) Inj) 50 ml UNSCH PRN IV PUSH HYPOGLYCEMIA-SEE COMMENTS 05/27/17 00:45 05/30/17 21:41 Glucagon (Glucagon Inj) 1 mg UNSCH PRN OTHER HYPOGLYCEMIA-SEE COMMENTS 05/27/17 00:45 Insulin Human Regular (NovoLIN R SUPPLEMENTAL SCALE) 1 Q4HR SQ 05/27/17 04:00 Metoprolol Tartrate (Lopressor Inj) 5 mg Q6H IV PUSH 05/28/17 04:00 06/01/17 09:11 Diltiazem HCl (Cardizem) 90 mg QID PO 05/28/17 09:00 06/01/17 09:10 Dexmedetomidine HCl 1000 mcg/ Sodium Chloride 250 ml @ 3.92 mls/hr TITRATE PRN IV SEDATION 05/28/17 07:30 05/28/17 08:38 Morphine Sulfate (Morphine Inj) 2 mg Q3H PRN IV PUSH pain 5-10 05/28/17 09:30 06/01/17 09:00 Labetalol HCl (Trandate Inj) 10 mg Q2H PRN IV SBP > 160 05/28/17 17:45 05/31/17 06:03 Albuterol Sulfate (Albuterol Neb) 2.5 mg Q2HR NEB PRN NEB DYSPNEA 05/29/17 15:15 Senna/Docusate Sodium (Sabrina-Colace) 1 tab BID PO 05/29/17 21:00 06/01/17 09:10 Pantoprazole Sodium (Protonix) 20 mg DAILY PO 05/30/17 09:00 06/01/17 09:10 Aspirin (Aspirin Chew) 81 mg DAILY CHEW 05/30/17 09:00 06/01/17 09:10 Heparin Sodium (Porcine) (Heparin Inj) 5,000 units Q8HR SQ 05/29/17 22:00 06/01/17 05:53 Acetaminophen/ Hydrocodone Bitart (Wendel 5-325 Mg) 1 tab Q4H PRN PO pain 1-5 05/30/17 17:30 Vancomycin HCl 1500 mg/Sodium Chloride 515 ml @ 257.5 mls/ hr Q24H IV 06/01/17 12:00 Albuterol/ Ipratropium (Duoneb Neb) 1 ampule Q6HR NEB NEB 05/31/17 16:00 06/01/17 08:41 OBJECTIVE. Vital Signs Date Time Temp Pulse Resp B/P (MAP) Pulse Ox O2 Delivery O2 Flow Rate FiO2 06/01/17 08:00 80 06/01/17 08:00 99.0 92 24 147/105 (119) 99 06/01/17 07:43 98 21 06/01/17 07:00 100 Room Air 06/01/17 06:00 92 06/01/17 04:00 83 06/01/17 04:00 98.3 83 21 129/65 (86) 95 06/01/17 02:00 79 06/01/17 00:00 99.7 80 23 132/65 (87) 95 06/01/17 00:00 80 05/31/17 22:00 76 05/31/17 20:36 97 21 05/31/17 20:00 86 05/31/17 20:00 99.0 91 25 140/71 (94) 96 05/31/17 19:00 95 Room Air 05/31/17 18:00 80 05/31/17 16:00 70 05/31/17 16:00 98.2 70 21 119/58 (78) 94 05/31/17 14:00 88 05/31/17 13:00 20 05/31/17 12:00 97.9 80 20 137/67 (90) 97 05/31/17 12:00 80 Laboratory Tests Test 05/31/17 03:42 06/01/17 04:15 White Blood Count 16.5 TH/MM3 14.7 TH/MM3 Red Blood Count 3.23 MIL/MM3 3.11 MIL/MM3 Hemoglobin 10.1 GM/DL 9.9 GM/DL Hematocrit 30.3 % 28.9 % Mean Corpuscular Volume 93.9 FL 93.0 FL Mean Corpuscular Hemoglobin 31.3 PG 32.0 PG Mean Corpuscular Hemoglobin Concent 33.4 % 34.4 % Red Cell Distribution Width 13.5 % 13.9 % Platelet Count 262 TH/MM3 299 TH/MM3 Mean Platelet Volume 8.4 FL 8.7 FL Neutrophils (%) (Auto) 77.8 % Lymphocytes (%) (Auto) 7.9 % Monocytes (%) (Auto) 12.6 % Eosinophils (%) (Auto) 1.2 % Basophils (%) (Auto) 0.5 % Neutrophils # (Auto) 12.9 TH/MM3 Lymphocytes # (Auto) 1.3 TH/MM3 Monocytes # (Auto) 2.1 TH/MM3 Eosinophils # (Auto) 0.2 TH/MM3 Basophils # (Auto) 0.1 TH/MM3 CBC Comment DIFF FINAL Differential Comment Laboratory Tests Test 05/30/17 22:13 05/31/17 01:25 05/31/17 03:42 06/01/17 04:15 Lactic Acid Level 1.3 mmol/L 0.8 mmol/L Blood Urea Nitrogen 20 MG/DL 19 MG/DL Creatinine 0.95 MG/DL 0.94 MG/DL Random Glucose 325 MG/DL 103 MG/DL Total Protein 6.0 GM/DL Albumin 1.5 GM/DL Calcium Level 7.6 MG/DL 8.7 MG/DL Phosphorus Level 3.6 MG/DL Magnesium Level 2.2 MG/DL Alkaline Phosphatase 116 U/L Aspartate Amino Transf (AST/SGOT) 27 U/L Alanine Aminotransferase (ALT/SGPT) 17 U/L Total Bilirubin 0.9 MG/DL Sodium Level 135 MEQ/L 138 MEQ/L Potassium Level 3.9 MEQ/L 3.6 MEQ/L Chloride Level 101 MEQ/L 103 MEQ/L Carbon Dioxide Level 26.9 MEQ/L 28.5 MEQ/L Anion Gap 7 MEQ/L 7 MEQ/L Estimat Glomerular Filtration Rate 79 ML/MIN 80 ML/MIN Microbiology Date/Time Source Procedure Growth Status 05/28/17 05:22 Blood Peripheral Aerobic Blood Culture - Preliminary NO GROWTH IN 1 DAY Resulted 05/28/17 05:22 Blood Peripheral Anaerobic Blood Culture - Preliminary NO GROWTH IN 1 DAY Resulted 05/28/17 05:15 Blood Peripheral Aerobic Blood Culture - Preliminary NO GROWTH IN 1 DAY Resulted 05/28/17 05:15 Blood Peripheral Anaerobic Blood Culture - Preliminary NO GROWTH IN 1 DAY Resulted 05/27/17 15:45 Fluid Pleural Fluid Fungal Smear - Final NO FUNGAL ELEMENTS SEEN. Resulted 05/27/17 15:45 Fluid Pleural Fluid Fungal Culture Pending Resulted 05/27/17 15:45 Fluid Pleural Fluid Acid Fast Stain Pending Received 05/27/17 15:45 Fluid Pleural Fluid Mycobacterial Culture Pending Received 05/27/17 15:45 Fluid Pleural Fluid Gram Stain - Final Resulted 05/27/17 15:45 Fluid Pleural Fluid Body Fluid Culture - Preliminary NO GROWTH IN 48 HOURS. Resulted 05/27/17 12:30 Fluid Pleural Fluid Fungal Smear - Final NO FUNGAL ELEMENTS SEEN. Resulted 05/27/17 12:30 Fluid Pleural Fluid Fungal Culture Pending Resulted 05/27/17 12:30 Fluid Pleural Fluid Acid Fast Stain - Final NO ACID FAST BACILLI SEEN Resulted 05/27/17 12:30 Fluid Pleural Fluid Mycobacterial Culture Pending Resulted 05/27/17 12:30 Fluid Pleural Fluid Gram Stain - Final Resulted 05/27/17 12:30 Fluid Pleural Fluid Body Fluid Culture - Preliminary NO GROWTH IN 48 HOURS. Resulted 05/27/17 11:05 Abscess Back Fungal Smear - Final NO FUNGAL ELEMENTS SEEN. Resulted 05/27/17 11:05 Abscess Back Fungal Culture Pending Resulted 05/27/17 11:05 Abscess Back Acid Fast Stain - Final NO ACID FAST BACILLI SEEN Resulted 05/27/17 11:05 Abscess Back Mycobacterial Culture Pending Resulted 05/27/17 11:05 Abscess Back Gram Stain - Final Resulted 05/27/17 11:05 Wound Culture - Preliminary S. Aureus Mrsa Resulted IMAGING: Last 72 hours Impressions Chest X-Ray 05/31/17599 Signed Impressions: Service Date/Time: Wednesday, May 31, 2017 04:04 - CONCLUSION: No significant interval change Giovanni Hernandez MD Chest X-Ray [id number]/17599 Signed Impressions: Service Date/Time: Tuesday, May 30, 2017 04:45 - CONCLUSION: Stable chest appearance. Giovanni Hernandez MD Chest X-Ray [id number]/17599 Signed Impressions: Service Date/Time: Saturday, May 27, 2017 04:48 - CONCLUSION: Diffuse increase density likely representing edema which appears worse. Some degree of effusion needs to be considered especially on the left. Giovanni Gomez MD Needle Biopsy/Aspiration X-Ray 05/27/17 0000 Signed Impressions: Service Date/Time: Saturday, May 27, 2017 12:01 - CONCLUSION: Uncomplicated L2-L3 disc aspiration as above. Armando Ennis Jr., MD Chest X-Ray 05/27/17 0000 Signed Impressions: Service Date/Time: Saturday, May 27, 2017 13:04 - CONCLUSION: 1. Interval left thoracostomy tube placement. There is a kink involving the catheter proximal to the distal sideholes which could reduce or completely obstruct the drainage capability of the tube. 2. Mild left basilar atelectasis. 3. Unchanged right lower lobe infiltrate/effusion. Armando Ennis Jr., MD Chest CT 05/26/17 0000 Signed Impressions: Service Date/Time: Friday, May 26, 2017 10:55 - CONCLUSION: Moderate sized bilateral pleural effusions with small areas of patchy consolidation as well as passive atelectasis. This is a new finding from the prior chest x-ray. Noncardiogenic pulmonary edema versus infectious etiology. Armando Ennis Jr., MD Abdomen/Pelvis CT 05/26/17 0000 Signed Impressions: Service Date/Time: Friday, May 26, 2017 10:55 - CONCLUSION: Definite retroperitoneal inflammation around the abdominal aorta as well as extensive small lymph nodes throughout the retroperitoneum. There is also free fluid in both paracolic gutters right greater than left. I was initially concerning about a possible discitis at L2-3 with some cystic change along the endplates, particularly L2-3. Large bilateral pleural effusion with passive atelectasis. Sean Brown MD Upper Extremity Ultrasound 05/25/17 0000 Signed Impressions: Service Date/Time: Thursday, May 25, 2017 19:27 - CONCLUSION: Nonocclusive thrombus of the cephalic and basilic veins without evidence of proximal propagation. Armando Peterson MD Thoracic Spine MRI 05/24/17 0000 Signed Impressions: Service Date/Time: Wednesday, May 24, 2017 09:12 - CONCLUSION: 1. Minimal disc osteophyte complexes at T7-8, T8-9 and T9-10. 2. No spinal stenosis, focal disc herniation or significant neural foraminal narrowing. 3. No enhancing abscess collection. Abilio Eastman MD Lumbar Spine MRI 05/24/17 0000 Signed Impressions: Service Date/Time: Wednesday, May 24, 2017 09:12 - CONCLUSION: 1. Mild spinal stenosis and mild to moderate bilateral narrowing at L2-3, L3-4 and L4- 5. 2. Mild spinal stenosis and mild bilateral foraminal narrowing at L1-2. 3. Diffuse degenerative disease throughout the lumbar spine. 4. No evidence of enhancing abscess. Abilio Eastman MD Cervical Spine MRI 05/24/17 0000 Signed Impressions: Service Date/Time: Wednesday, May 24, 2017 09:12 - CONCLUSION: 1. Mild bilateral foraminal narrowing at C3-4, C4-5, C5-6 and C6-7. 2. No enhancing abscess. 3. Reversal of the normal cervical lordosis. 4. Diffuse cervical spondylosis from C3-C7. Abilio Eastman MD Brain MRI 05/24/17 0000 Signed Impressions: Service Date/Time: Wednesday, May 24, 2017 09:12 - CONCLUSION: 1. Mild periventricular white matter small vessel ischemic changes are noted bilaterally. 2. No acute infarct, acute hemorrhage, mass effect or extra- axial fluid collections. 3. No abnormal enhancing mass lesion. Abilio Eastman MD PHYSICAL EXAM. GENERAL: No acute distress. calm. HEENT: The head is atraumatic. No icterus. NECK: No swelling. No adenopathy. LUNGS: Clear breath sounds. HEART: Tachycardic. S1-S2. No audible murmurs or rubs or gallops. ABDOMEN: Bowel sounds present, soft. EXTREMITIES: No clubbing or cyanosis trace edema at feet. SKIN: No diffuse rash. NEUROLOGIC: Non focal IMPRESSION 1. Abnormal cerebrospinal fluid suggesting meningitis and very likely bacterial meningitis. CSF culture has no growth. 2. Bacteremia MRSA. Persistently positive blood culture now negative. Vancomycin initially was sub therapeutic. 3. Discitis lumbar spine L 1 -2. due to MRSA. probable source of bacteremia. Extensive small lymph nodes in the abdomen ? etiology. May not be related to infection. 4. Positive toxicology screen for cocaine. Appears clinically stable. RECOMMENDATIONS 1. Continue Vancomycin. Aim for 15- 20 vanco trough. 2. Monitor the WBC. 3. Monitor temp. 4. Monitor clinical status. In light of discitis we need to aim for IV antibiotic x 6 to 8 weeks. Giovanni Hernandez MD Jun 01, 2017 10:31
--- NOTE | 2017-06-01 10:49 | HHI.CCPN ---
Subjective Remarks/Hospital Course Patient is a 66-year-old male with history of anxiety, arthritis, substance abuse who was initially admitted to hospitalist service with altered mentation, and back pain. Found to have UDS positive for cocaine. In the ED patient was anxious and combative. Initially admitted to the medical floor. WBC 14.2 with bandemia, lactic acid 3.4, BUN/abdomen 27/1.49. Patient was given IV fluids, started on Cefepime and vanc but he continued to become more combative restless and altered. Patient was moved to the ICU and I immediately evaluated him. Patient is in four point restraints. He was unable to communicate, very agitated. Heart rate is in 160s rhythm appears to be A. fib with RVR. Patient was given 2 mg IV morphine and 2 mg IV Versed. He still intermittently agitated and started him on Precedex infusion. Patient is intermittently apneic but wakes up to painful stimuli. Because of severe agitation and drug withdrawal I am unable to get any additional history 05/23/17: Patient remains confused but intermittently oriented to person and somewhat place. Continues to repeat same words (Echolalia). Blood cultures GPC 3/4 bottles. Echo pending, also will proceed with LP. Change Cefepime to Rocephin, Add ampicillin 05/24/17: Continues to be septic encephalopathy. Blood cultures growing MRSA. Echo pending, but circled limited I did not see any vegetation. LP findings consistent with bacterial meningitis 05/25/17: Remains critically ill but stable. Encephalopathy slowly improving, on weaning doses of Precedex. Afib with RVR, re start Cardizem. LEXIE today to rule out endocarditis. 05/26/17: Patient remains intermittently agitated tachycardic tachypneic. Weaned off Precedex. In A. fib with RVR Cardizem IV push and Lopressor IV push given without response. Start Cardizem infusion. CT shows bilateral large pleural effusions because of MRSA bacteremia needs to be drained. CT abdomen pelvis probable L2-L3 discitis. Discussed with radiologist Dr. Brown. Discussed with daughter, will proceed with intubation and possible biopsy 05/27/17: Patient was intubated yesterday for worsening agitation respiratory distress and also to facilitate L2-L3, CT-guided needle biopsy to rule out discitis. Blood cultures from 05/25/17 growing GPC most likely MRSA. Recommend bacteremia could be related to the L2-L3 discitis. Patient remains critically ill. Remains in atrial fibrillation with rate controlled. Cannot anticoagulate due to anticipated procedures (lumbar disc biopsy). Started on D5 1/2NS for hypoglycemia 05/28/17: Remains intubated sedated, not following commands while on sedation. CT of the head done overnight for unequal pupils-no acute findings. Had bilateral chest tubes placed yesterday 1.6 L output combined. Urine output excellent 3 L. Daptomycin added yesterday by ID, continue vancomycin. WBC count 16.4 today from 11.8. No fever. Repeat blood cultures sent today 05/29: Extubated without competition. Currently on nasal cannula. Currently vancomycin for MRSA/discitis. Neurosurgery was consulted. Bilateral chest tubes in place 05/30: Resting comfortable in bed in no acute distress. MAXIMUM TEMPERATURE 100.4. White blood cell count decreasing. Neurosurgery recommended no surgical intervention at this time. Okay out of bed. Decreased output from chest tubes. On nasal cannula. More awake and attentive today. 05/31: Tmax 99.2. Currently afebrile. Had fecal containment device placed due to diarrhea. Elevated blood sugar today. Subjective 06/01: Tmax 99.7. Currently 99. Still intermittently confused. IV fluids discontinued. Currently resting in bed on nasal cannula in no acute distress. Objective Vital Signs Date Time Temp Pulse Resp B/P (MAP) Pulse Ox O2 Delivery O2 Flow Rate FiO2 06/01/17 10:00 79 06/01/17 08:00 99.0 24 147/105 (119) 99 06/01/17 07:43 21 06/01/17 07:00 Room Air 05/30/17 19:00 2.00 Intake and Output 06/01/17 06/01/17 06/02/17 08:00 16:00 00:00 Intake Total 200 ml Output Total 1525 ml Balance -1325 ml Result Diagram: 06/01/17 0415 06/01/17 0415 Other Results Microbiology Date/Time Source Procedure Growth Status 05/28/17 05:22 Blood Peripheral Aerobic Blood Culture - Preliminary NO GROWTH IN 3 DAYS Resulted 05/28/17 05:22 Blood Peripheral Anaerobic Blood Culture - Preliminary NO GROWTH IN 3 DAYS Resulted 05/27/17 15:45 Fluid Pleural Fluid Fungal Smear - Final NO FUNGAL ELEMENTS SEEN. Resulted 05/27/17 15:45 Fluid Pleural Fluid Fungal Culture Pending Resulted 05/27/17 11:05 Abscess Back Fungal Smear - Final NO FUNGAL ELEMENTS SEEN. Resulted 05/27/17 11:05 Abscess Back Fungal Culture Pending Resulted Imaging Last Impressions Chest X-Ray 05/31/17 0600 Signed Impressions: Service Date/Time: Wednesday, May 31, 2017 04:04 - CONCLUSION: No significant interval change Giovanni Hernandez MD Head CT 05/28/17 0000 Signed Impressions: Service Date/Time: May 01:16 - CONCLUSION: 1. No intracranial abnormality is seen. 2. Ethmoid and sphenoid sinus disease. Giovanni Gomez MD Needle Biopsy/Aspiration X-Ray 05/27/17 0000 Signed Impressions: Service Date/Time: Saturday, May 27, 2017 12:01 - CONCLUSION: Uncomplicated L2-L3 disc aspiration as above. Armando Ennis Jr., MD Chest CT 05/26/17 0000 Signed Impressions: Service Date/Time: Friday, May 26, 2017 10:55 - CONCLUSION: Moderate sized bilateral pleural effusions with small areas of patchy consolidation as well as passive atelectasis. This is a new finding from the prior chest x-ray. Noncardiogenic pulmonary edema versus infectious etiology. Armando Ennis Jr., MD Abdomen/Pelvis CT 05/26/17 0000 Signed Impressions: Service Date/Time: Friday, May 26, 2017 10:55 - CONCLUSION: Definite retroperitoneal inflammation around the abdominal aorta as well as extensive small lymph nodes throughout the retroperitoneum. There is also free fluid in both paracolic gutters right greater than left. I was initially concerning about a possible discitis at L2-3 with some cystic change along the endplates, particularly L2-3. Large bilateral pleural effusion with passive atelectasis. Sean Brown MD Upper Extremity Ultrasound 05/25/17 0000 Signed Impressions: Service Date/Time: Thursday, May 25, 2017 19:27 - CONCLUSION: Nonocclusive thrombus of the cephalic and basilic veins without evidence of proximal propagation. Armando Peterson MD Thoracic Spine MRI 05/24/17 0000 Signed Impressions: Service Date/Time: Wednesday, May 24, 2017 09:12 - CONCLUSION: 1. Minimal disc osteophyte complexes at T7-8, T8-9 and T9-10. 2. No spinal stenosis, focal disc herniation or significant neural foraminal narrowing. 3. No enhancing abscess collection. Abilio Eastman MD Lumbar Spine MRI 05/24/17 0000 Signed Impressions: Service Date/Time: Wednesday, May 24, 2017 09:12 - CONCLUSION: 1. Mild spinal stenosis and mild to moderate bilateral narrowing at L2-3, L3-4 and L4- 5. 2. Mild spinal stenosis and mild bilateral foraminal narrowing at L1-2. 3. Diffuse degenerative disease throughout the lumbar spine. 4. No evidence of enhancing abscess. Abilio Eastman MD Cervical Spine MRI 05/24/17 0000 Signed Impressions: Service Date/Time: Wednesday, May 24, 2017 09:12 - CONCLUSION: 1. Mild bilateral foraminal narrowing at C3-4, C4-5, C5-6 and C6-7. 2. No enhancing abscess. 3. Reversal of the normal cervical lordosis. 4. Diffuse cervical spondylosis from C3-C7. Abilio Eastman MD Brain MRI 05/24/17 0000 Signed Impressions: Service Date/Time: Wednesday, May 24, 2017 09:12 - CONCLUSION: 1. Mild periventricular white matter small vessel ischemic changes are noted bilaterally. 2. No acute infarct, acute hemorrhage, mass effect or extra- axial fluid collections. 3. No abnormal enhancing mass lesion. Abilio Eastman MD Objective Remarks GENERAL: 66-year-old male, currently resting in bed on nasal cannula in no acute distress SKIN: Well-perfused HEAD: Atraumatic. Normocephalic. No temporal or scalp tenderness. EYES: Pupils equal round and reactive about 3 Herrmann's bilaterally and reactive. ENT: Orotracheally intubated NECK: Trachea midline. No JVD or lymphadenopathy. Supple No neck stiffness CARDIOVASCULAR: RRR. S1, S2 no S4. RESPIRATORY: Bilateral course breath sounds and diminished at the bases. Bilateral pigtails with 0.15 L combined overnight GASTROINTESTINAL: Abdomen soft, non-tender, nondistended. MUSCULOSKELETAL: Difficult to asses for back tenderness, due to altered mentation. Right hand dorsum is warm with erythema NEUROLOGICAL: Cranial nerves II through XII grossly intact. Wiggles toes bilateral. Follows commands with upper extremities. Pupils are equal round reactive Urinary Catheter: No Assessment to: Continue Vascular Central Line Catheter: Yes Assessment to: Continue Date of Insertion: May 27, 2017 Line: Central Venous Catheter Side: Left Location: Subclavian A/P Assessment and Plan NEURO/PSYCH: Bacterial meningitis Severe encephalopathy UDS positive for cocaine MRSA L2-L3 discitis Substance abuse with severe withdrawal - Delirium and encephalopathy secondary to severe sepsis and drug withdrawal - Urine drug screen positive for cocaine, history of IV opiate abuse - Currently on haloperidol 5 mg IV every 6 hours when necessary agitation - Currently morphine sulfate 2 mg every 3 hours. Pain 6 or 10 Neurosurgery consultation for discitis recommended no surgical intervention at this time. Okay out of bed. Reimage area of concern within next 3-6 days - CIWA protocol Continue thiamine - MRI brain no acute finding. MRI spine no evidence of abscess, but CT abdomen showed possible L2-L3 discitis RESP: Large bilateral transudative pleural effusions s/p pigtail chest tube placement - Intubated and placed on mechanical ventilation 05/26/17, due to respiratory distress agitation and also to facilitate biopsy procedure. Extubated 05/28 - Nasal cannula to maintain saturations greater than equal to 92% Incentive spirometry while awake -Albuterol/ipratropium aerosols scheduled q6 and albuterol aerosols every 2 hours when necessary dyspnea - Moderate to large bilateral pleural effusions,s/p bilateral chest tube placement 05/27/17, 50 cc right, 100 cc left. CV: A. fib with RVR - normal sinus rhythm - Currently on digoxin 0.125 mg IV daily over to by mouth and metoprolol 5 mg IV every 6 hours for rate control.- -Convert metoprolol 25 every 8- - Also diltiazem 90 mg every 6 hours. Intermittently normal sinus rhythm.. Level 0.9 this AM - Atrial fibrillation is most likely from drug withdrawal will not anticoagulate due to lumbar disc biopsy 05/27, and patient is a poor candidate for long anticoagulation due to alcohol and drug dependence -Okayed low-dose aspirin per invasive radiology - 2-D echo NL EF, Dr. An consulted for LEXIE-negative for vegetation, clot GI: Hepatitis C antibody positive Hypoalbuminemia Elevated total bilirubin -Clear liquid diet. Advance as tolerated per speech therapy -. IV pantoprazole - Docusate sodium/senna 1 tablet twice a day bowel regimen Renal/: - Monitor renal function closely. - Aggressive fluid resuscitation - Monitor CPK ID: Severe sepsis with MRSA bacteremia. L2-L3 discitis - Continue meningitic doses of Vancomycin, Daptomycin added 05/27 due to vanc DASHAWN 2 - ID Dr. Hernandez. LP findings consistent with bacterial meningitis - CSF cx neg to date, but LP was done after 24 hours on ABX - [address] abd shows ? L2-L3 discitis. f/u lumbar disc biopsy, culture HEME: Leukocytosis Normocytic anemia - Leukocytosis from sepsis. Monitor CBC, CMP ENDO/FEN: Hypoglycemia now hyperglycemic Hyponatremia SSI with Accu-Cheks every 4 hours to maintain euglycemia/low regimen Novulog Currently on D5 normal saline - Electrolyte replacement per protocol PROPH: - Bilateral lower extremity SCDs. Heparin subcutaneous/pantoprazole LINES: -CVL left subclavian 05/27 Level II follow-up Ehsan Holland MD Jun 01, 2017 10:49
[2017-06-01] MEDS: VANCOMYCIN 1,500 MG/NS 500 ML IV SCH ×2 (12:00)
[2017-06-01] MEDS: DEXTROSE 50% IN WATER 50 ML VIAL(D50) IV PUSH PRN (12:10)
[2017-06-01] MEDS: ACETAMINOPHEN/HYDROcodone 325 MG/5 MG TAB PO PRN (13:00)
[2017-06-01] MEDS: METOPROLOL TARTRATE 25 MG TAB PO SCH ×2 (13:42→20:53)
[2017-06-01] MEDS: LABETALOL HCL 100 MG/20 ML VIAL IV PRN (13:42)
[2017-06-02] VITALS (14 sets, daily range): BP systolic 120–165; BP diastolic 64–79; PULSE 71–88; RESP 12–20; TEMP 98.6–98.8; O2SAT 95–97
[2017-06-02] MEDS: ACETAMINOPHEN/HYDROcodone 325 MG/5 MG TAB PO PRN ×2 (00:05→08:36)
[2017-06-02] MEDS: MORPHINE SULFATE 2 MG/ML INJ IV PUSH PRN ×6 (00:39→20:39)
[2017-06-02] MEDS: RESP: ALBUTEROL 2.5 MG/IPRATROPIUM 0.5 MG NEB (SCH) NEB ×4 (03:29→20:36)
[2017-06-02 04:23] LABS: AUTOMATED NEUTROPHIL # 8.9 TH/MM3 (1.8-7.7); BASOPHIL % 0.3 % (0.0-2.0); EOSINOPHIL # 0.3 TH/MM3 (0-0.4); EOSINOPHIL % 2.4 % (0.0-4.0); HEMATOCRIT 27.6 % (39.0-51.0); HEMOGLOBIN 9.5 GM/DL (13.0-17.0); LYMPH % 13.8 % (9.0-44.0); LYMPHOCYTE # 1.7 TH/MM3 (1.0-4.8); MEAN CORPUSCULAR HEMOGLOBIN 32.1 PG (27.0-34.0); MEAN CORPUSCULAR HGB CONC 34.5 % (32.0-36.0); MEAN PLATELET VOLUME 8.5 FL (7.0-11.0); MONO % 12.3 % (0.0-8.0); MONOCYTE # 1.5 TH/MM3 (0-0.9); NEUT % 71.2 % (16.0-70.0); PLATELET COUNT 329 TH/MM3 (150-450); RED BLOOD COUNT 2.97 MIL/MM3 (4.50-5.90); RED CELL DISTRIBUTION WIDTH 13.2 % (11.6-17.2); WHITE BLOOD COUNT 12.4 TH/MM3 (4.0-11.0)
[2017-06-02 05:12] LABS: ALBUMIN 1.6 GM/DL (3.4-5.0); ALKALINE PHOSPHATASE 92 U/L (45-117); ALT (GPT) 19 U/L (12-78); AST (GOT) 24 U/L (15-37); BICARBONATE 27.7 MEQ/L (21.0-32.0); BLOOD UREA NITROGEN 19 MG/DL (7-18); CALCIUM 8.4 MG/DL (8.5-10.1); CHLORIDE 99 MEQ/L (98-107); CREATININE 0.86 MG/DL (0.60-1.30); DIGOXIN 0.8 NG/ML (0.8-2.0); GLOMERULAR FILTRATION RATE 88 ML/MIN (>89); GLUCOSE,RANDOM 69 MG/DL (74-106); MAGNESIUM 1.6 MG/DL (1.5-2.5); SODIUM (NA) 134 MEQ/L (136-145); TOTAL BILIRUBIN ADULT 0.7 MG/DL (0.2-1.0); TOTAL PROTEIN 6.3 GM/DL (6.4-8.2)
[2017-06-02] MEDS: METOPROLOL TARTRATE 25 MG TAB PO SCH ×3 (05:53→21:21)
[2017-06-02] MEDS: hydrALAZINE HCL 20 MG/ML VIAL IV PUSH PRN (05:53)
[2017-06-02] MEDS: HEPARIN SODIUM - SQ 10,000 UNITS/ML VIAL SQ SCH ×3 (05:53→21:21)
--- NOTE | 2017-06-02 06:22 | RADRPT ---
EXAM DATE/TIME: 06/02/2017 05:32 [facility] COMPARISON: CHEST SINGLE AP, May 31, 2017, 4:04. INDICATIONS : Short of breath. MEDICAL HISTORY : None. SURGICAL HISTORY : None. ENCOUNTER: Subsequent ACUITY: 1 week PAIN SCORE: Non-responsive. LOCATION: Bilateral chest FINDINGS: The lungs are clear without infiltrate, nodule, or mass except for slight linear atelectasis left low er lung. There is no appreciable pleural effusion for technique. Heart and mediastinum are unremark able. Left subclavian line is present with tip overlapping the expected region of the SVC. Chest tube is present on the right side. No definite pneumothorax is seen for technique. CONCLUSION: Minimal left lung base atelectasis. Liat Hirsch MD on June 02, 2017 at 6:20 Board Certified Radiologist. This report was verified electronically.
[2017-06-02] MEDS: THIAMINE HCL 100 MG TAB PO SCH (08:10)
[2017-06-02] MEDS: MULTIVITAMIN TAB PO SCH (08:10)
[2017-06-02] MEDS: DIGOXIN 0.125 MG TAB PO SCH (08:10)
[2017-06-02] MEDS: FOLIC ACID 1 MG TAB PO SCH (08:10)
[2017-06-02] MEDS: SODIUM CHLORIDE 0.9% FLUSH 10 ML FLUSH IV FLUSH SCH ×2 (08:10→20:43)
[2017-06-02] MEDS: DILTIAZEM HCL 90 MG TAB PO SCH ×4 (08:10→20:43)
[2017-06-02] MEDS: ASPIRIN 81 MG CHEW TAB CHEW SCH (08:10)
[2017-06-02] MEDS: PANTOPRAZOLE SOD 20 MG DELAYED RELEASE TAB PO SCH (08:10)
[2017-06-02] MEDS: INSULIN NovoLIN REGULAR SUPPLEMENTAL SCALE SQ SCH ×4 (08:31→20:58)
--- NOTE | 2017-06-02 11:00 | HHI.CCPN ---
Subjective Remarks/Hospital Course Patient is a 66-year-old male with history of anxiety, arthritis, substance abuse who was initially admitted to hospitalist service with altered mentation, and back pain. Found to have UDS positive for cocaine. In the ED patient was anxious and combative. Initially admitted to the medical floor. WBC 14.2 with bandemia, lactic acid 3.4, BUN/abdomen 27/1.49. Patient was given IV fluids, started on Cefepime and vanc but he continued to become more combative restless and altered. Patient was moved to the ICU and I immediately evaluated him. Patient is in four point restraints. He was unable to communicate, very agitated. Heart rate is in 160s rhythm appears to be A. fib with RVR. Patient was given 2 mg IV morphine and 2 mg IV Versed. He still intermittently agitated and started him on Precedex infusion. Patient is intermittently apneic but wakes up to painful stimuli. Because of severe agitation and drug withdrawal I am unable to get any additional history 05/23/17: Patient remains confused but intermittently oriented to person and somewhat place. Continues to repeat same words (Echolalia). Blood cultures GPC 3/4 bottles. Echo pending, also will proceed with LP. Change Cefepime to Rocephin, Add ampicillin 05/24/17: Continues to be septic encephalopathy. Blood cultures growing MRSA. Echo pending, but circled limited I did not see any vegetation. LP findings consistent with bacterial meningitis 05/25/17: Remains critically ill but stable. Encephalopathy slowly improving, on weaning doses of Precedex. Afib with RVR, re start Cardizem. LEXIE today to rule out endocarditis. 05/26/17: Patient remains intermittently agitated tachycardic tachypneic. Weaned off Precedex. In A. fib with RVR Cardizem IV push and Lopressor IV push given without response. Start Cardizem infusion. CT shows bilateral large pleural effusions because of MRSA bacteremia needs to be drained. CT abdomen pelvis probable L2-L3 discitis. Discussed with radiologist Dr. Brown. Discussed with daughter, will proceed with intubation and possible biopsy 05/27/17: Patient was intubated yesterday for worsening agitation respiratory distress and also to facilitate L2-L3, CT-guided needle biopsy to rule out discitis. Blood cultures from 05/25/17 growing GPC most likely MRSA. Recommend bacteremia could be related to the L2-L3 discitis. Patient remains critically ill. Remains in atrial fibrillation with rate controlled. Cannot anticoagulate due to anticipated procedures (lumbar disc biopsy). Started on D5 1/2NS for hypoglycemia 05/28/17: Remains intubated sedated, not following commands while on sedation. CT of the head done overnight for unequal pupils-no acute findings. Had bilateral chest tubes placed yesterday 1.6 L output combined. Urine output excellent 3 L. Daptomycin added yesterday by ID, continue vancomycin. WBC count 16.4 today from 11.8. No fever. Repeat blood cultures sent today 05/29: Extubated without competition. Currently on nasal cannula. Currently vancomycin for MRSA/discitis. Neurosurgery was consulted. Bilateral chest tubes in place 05/30: Resting comfortable in bed in no acute distress. MAXIMUM TEMPERATURE 100.4. White blood cell count decreasing. Neurosurgery recommended no surgical intervention at this time. Okay out of bed. Decreased output from chest tubes. On nasal cannula. More awake and attentive today. 05/31: Tmax 99.2. Currently afebrile. Had fecal containment device placed due to diarrhea. Elevated blood sugar today. 06/01: Tmax 99.7. Currently 99. Still intermittently confused. IV fluids discontinued. Currently resting in bed on nasal cannula in no acute distress Subjective 06/02: Tmax 99.3. Currently 98.6. Episodic hypoglycemia this morning resolved. Currently placing chested waterseal we'll attempt to remove today. Intermittently confused still. Objective Vital Signs Date Time Temp Pulse Resp B/P (MAP) Pulse Ox O2 Delivery O2 Flow Rate FiO2 06/02/17 10:00 85 06/02/17 08:03 97 21 06/02/17 08:00 98.6 12 134/67 (89) 06/02/17 07:00 Room Air 05/30/17 19:00 2.00 Intake and Output 06/02/17 06/02/17 06/02/17 07:59 15:59 23:59 Intake Total 400 ml Output Total 900 ml Balance -500 ml Result Diagram: 06/02/17 0335 06/02/17 0335 Other Results Microbiology Date/Time Source Procedure Growth Status 05/28/17 05:22 Blood Peripheral Aerobic Blood Culture - Final NO GROWTH IN 5 DAYS Complete 05/28/17 05:22 Blood Peripheral Anaerobic Blood Culture - Final NO GROWTH IN 5 DAYS Complete 05/27/17 15:45 Fluid Pleural Fluid Fungal Smear - Final NO FUNGAL ELEMENTS SEEN. Resulted 05/27/17 15:45 Fluid Pleural Fluid Fungal Culture Pending Resulted 05/27/17 11:05 Abscess Back Fungal Smear - Final NO FUNGAL ELEMENTS SEEN. Resulted 05/27/17 11:05 Abscess Back Fungal Culture Pending Resulted Imaging Last Impressions Chest X-Ray 06/02/17 0600 Signed Impressions: Service Date/Time: Friday, June 02, 2017 05:32 - CONCLUSION: Minimal left lung base atelectasis. Liat Hirsch MD Head CT 05/28/17 0000 Signed Impressions: Service Date/Time: May 01:16 - CONCLUSION: 1. No intracranial abnormality is seen. 2. Ethmoid and sphenoid sinus disease. Giovanni Gomez MD Needle Biopsy/Aspiration X-Ray 05/27/17 0000 Signed Impressions: Service Date/Time: Saturday, May 27, 2017 12:01 - CONCLUSION: Uncomplicated L2-L3 disc aspiration as above. Armando Ennis Jr., MD Chest CT 05/26/17 0000 Signed Impressions: Service Date/Time: Friday, May 26, 2017 10:55 - CONCLUSION: Moderate sized bilateral pleural effusions with small areas of patchy consolidation as well as passive atelectasis. This is a new finding from the prior chest x-ray. Noncardiogenic pulmonary edema versus infectious etiology. Armando Ennis Jr., MD Abdomen/Pelvis CT 05/26/17 0000 Signed Impressions: Service Date/Time: Friday, May 26, 2017 10:55 - CONCLUSION: Definite retroperitoneal inflammation around the abdominal aorta as well as extensive small lymph nodes throughout the retroperitoneum. There is also free fluid in both paracolic gutters right greater than left. I was initially concerning about a possible discitis at L2-3 with some cystic change along the endplates, particularly L2-3. Large bilateral pleural effusion with passive atelectasis. Sean Brown MD Upper Extremity Ultrasound 05/25/17 0000 Signed Impressions: Service Date/Time: Thursday, May 25, 2017 19:27 - CONCLUSION: Nonocclusive thrombus of the cephalic and basilic veins without evidence of proximal propagation. Armando Peterson MD Thoracic Spine MRI 05/24/17 0000 Signed Impressions: Service Date/Time: Wednesday, May 24, 2017 09:12 - CONCLUSION: 1. Minimal disc osteophyte complexes at T7-8, T8-9 and T9-10. 2. No spinal stenosis, focal disc herniation or significant neural foraminal narrowing. 3. No enhancing abscess collection. Abilio Eastman MD Lumbar Spine MRI 05/24/17 0000 Signed Impressions: Service Date/Time: Wednesday, May 24, 2017 09:12 - CONCLUSION: 1. Mild spinal stenosis and mild to moderate bilateral narrowing at L2-3, L3-4 and L4- 5. 2. Mild spinal stenosis and mild bilateral foraminal narrowing at L1-2. 3. Diffuse degenerative disease throughout the lumbar spine. 4. No evidence of enhancing abscess. Abilio Eastman MD Cervical Spine MRI 05/24/17 0000 Signed Impressions: Service Date/Time: Wednesday, May 24, 2017 09:12 - CONCLUSION: 1. Mild bilateral foraminal narrowing at C3-4, C4-5, C5-6 and C6-7. 2. No enhancing abscess. 3. Reversal of the normal cervical lordosis. 4. Diffuse cervical spondylosis from C3-C7. Abilio Eastman MD Brain MRI 05/24/17 0000 Signed Impressions: Service Date/Time: Wednesday, May 24, 2017 09:12 - CONCLUSION: 1. Mild periventricular white matter small vessel ischemic changes are noted bilaterally. 2. No acute infarct, acute hemorrhage, mass effect or extra- axial fluid collections. 3. No abnormal enhancing mass lesion. Abilio Eastman MD Objective Remarks GENERAL: 66-year-old male, currently resting in bed on nasal cannula in no acute distress SKIN: Well-perfused HEAD: Atraumatic. Normocephalic. No temporal or scalp tenderness. EYES: Pupils equal round and reactive about 3 millimeters bilaterally and reactive. ENT: Orotracheally intubated NECK: Trachea midline. No JVD or lymphadenopathy. Supple No neck stiffness CARDIOVASCULAR: RRR. S1, S2 no S4. RESPIRATORY: Bilateral course breath sounds and diminished at the bases. Bilateral pigtails with 0 no output overnight. GASTROINTESTINAL: Abdomen soft, non-tender, nondistended. MUSCULOSKELETAL: Difficult to asses for back tenderness, due to altered mentation. Right hand dorsum is warm with erythema NEUROLOGICAL: Cranial nerves II through XII grossly intact. Moves bilateral lower extremities to command.. Follows commands with upper extremities. Pupils are equal round reactive Vascular Central Line Catheter: Yes Assessment to: Continue Date of Insertion: May 27, 2017 Line: Central Venous Catheter Side: Left Location: Subclavian A/P Assessment and Plan NEURO/PSYCH: Bacterial meningitis Severe encephalopathy UDS positive for cocaine MRSA L2-L3 discitis Substance abuse with severe withdrawal - Delirium and encephalopathy secondary to severe sepsis and drug withdrawal - Urine drug screen positive for cocaine, history of IV opiate abuse - Currently on haloperidol 5 mg IV every 6 hours when necessary agitation - Currently morphine sulfate 2 mg every 3 hours. Pain 6 or 10 Neurosurgery consultation for discitis recommended no surgical intervention at this time. Okay out of bed. Reimage area of concern within next 2-5 days - CIWA protocol Continue thiamine - MRI brain no acute finding. MRI spine no evidence of abscess, but CT abdomen showed possible L2-L3 discitis RESP: Large bilateral transudative pleural effusions s/p pigtail chest tube placement - Intubated and placed on mechanical ventilation 05/26/17, due to respiratory distress agitation and also to facilitate biopsy procedure. Extubated 05/28 - Nasal cannula to maintain saturations greater than equal to 92% Incentive spirometry while awake -Albuterol/ipratropium aerosols scheduled q6 and albuterol aerosols every 2 hours when necessary dyspnea - Moderate to large bilateral pleural effusions,s/p bilateral chest tube placement 05/27/17, no output overnight bilaterally. Will is to waterseal. Recheck x-ray this afternoon removed no pneumothorax CV: A. fib with RVR - normal sinus rhythm - Currently on digoxin 0.125 mg po daily metoprolol 25 every 8- - Also diltiazem 90 mg every 6 hours. Intermittently normal sinus rhythm.. Level 0.9 this AM - Atrial fibrillation is most likely from drug withdrawal will not anticoagulate due to lumbar disc biopsy 05/27, and patient is a poor candidate for long anticoagulation due to alcohol and drug dependence -Okayed low-dose aspirin per invasive radiology - 2-D echo NL EF, Dr. An consulted for LEXIE-negative for vegetation, clot GI: Hepatitis C antibody positive Hypoalbuminemia Elevated total bilirubin -Clear liquid diet. Advance as tolerated per speech therapy -. Pantoprazole 20 mg by mouth daily - Docusate sodium/senna 1 tablet twice a day bowel regimen Renal/: - Monitor renal function closely. - Aggressive fluid resuscitation - Monitor CPK ID: Severe sepsis with MRSA bacteremia. L2-L3 discitis - Continue meningitic doses of Vancomycin, Daptomycin added 05/27 due to vanc DASHAWN 2 - ID Dr. Hernandez. LP findings consistent with bacterial meningitis - CSF cx neg to date, but LP was done after 24 hours on ABX - [address] abd shows ? L2-L3 discitis. f/u lumbar disc biopsy, culture HEME: Leukocytosis Normocytic anemia - Leukocytosis from sepsis. Monitor CBC, CMP ENDO/FEN: Hypoglycemia Hyponatremia Hypo-magnesium SSI with Accu-Cheks every 4 hours to maintain euglycemia/low regimen Novulog - Electrolyte replacement per protocol receiving 2 g mag sulfate IV 1 today. PROPH: - Bilateral lower extremity SCDs. Heparin subcutaneous/pantoprazole LINES: -CVL left subclavian 05/27 Level II follow-up Ehsan Holland MD Jun 02, 2017 10:59
[2017-06-02] MEDS: VANCOMYCIN 1,500 MG/NS 500 ML IV SCH ×2 (12:31)
[2017-06-02] MEDS: MAGNESIUM SULFATE 1 GM PREMIX 100 ML IV SCH ×2 (12:31→13:00)
--- NOTE | 2017-06-02 13:31 | HHI.IDPN ---
Note Infectious Disease Note Patient is very alert and awake. No complaints. Notes very slight SANTANA. Afebrile. Has bilateral chest tubes. Post L2-3 disc space aspirate. Culture MRSA Blood culture has MRSA 05/25, 05/22. Blood culture 05/28 - no growth. CSF culture no growth. WBC elevated. Patient admitted to hospital with altered mental status. The patient was evaluated in the emergency department and he was complaining of lower back pain. The patient had positive, screen of the urine for cocaine. PAST MEDICAL HISTORY: 1. Arthritis 2. Anxiety. 3. Substance abuse. ALLERGIES NO KNOWN DRUG ALLERGIES. ANTIBIOTICS Vancomycin. Current Medications Medications (Trade) Dose Ordered Sig/Frandy Route PRN Reason Start Time Stop Time Status Last Admin Dose Admin Sodium Chloride (NS Flush) 2 ml UNSCH PRN IV FLUSH FLUSH AFTER USING IV ACCESS 05/22/17 06:15 Sodium Chloride (NS Flush) 2 ml BID IV FLUSH 05/22/17 09:00 06/02/17 08:10 Ondansetron HCl (Zofran Inj) 4 mg Q6H PRN IVP NAUSEA OR VOMITING 05/22/17 06:15 06/02/17 06:01 Acetaminophen (Tylenol) 650 mg Q6H PRN PO FEVER 05/22/17 06:15 Magnesium Hydroxide (Milk Of Magnesia Liq) 30 ml Q12H PRN PO Mild constipation 05/22/17 06:15 Sennosides (Senokot) 17.2 mg Q12H PRN PO Moderate constipation 05/22/17 06:15 Bisacodyl (Dulcolax Supp) 10 mg DAILY PRN RECTAL SEVERE CONSITIPATION 05/22/17 06:15 Lactulose (Lactulose Liq) 30 ml DAILY PRN PO SEVERE CONSITIPATION 05/22/17 06:15 Flumazenil (Romazicon Inj) 0.2 mg Q1M PRN IV PUSH SEE LABEL COMMENTS 05/22/17 11:30 Pharmacy Profile Note 0 ml @ 0 mls/hr UNSCH OTHER 05/23/17 07:30 Future hold Haloperidol Lactate (Haldol Inj) 5 mg Q4H PRN IV agitation 05/24/17 08:15 05/25/17 23:08 Potassium Chloride 100 ml @ 50 mls/hr Q2H PRN IV For Potassium 2.8 - 3.2 mEq/L 05/24/17 08:15 Potassium Chloride 100 ml @ 50 mls/hr Q2H PRN IV For Potassium 2.8 - 3.2 mEq/L 05/24/17 08:15 05/25/17 08:00 Potassium Bicarb/ Potassium Chloride (K-Lyte Cl Eff) 50 meq UNSCH PRN PO For Potassium 3.3 - 3.5 mEq/L 05/24/17 08:15 05/25/17 19:20 Potassium Chloride 100 ml @ 25 mls/hr UNSCH PRN IV For Potassium 3.3 - 3.5 mEq/L 05/24/17 08:15 Potassium Chloride 100 ml @ 50 mls/hr Q2H PRN IV For Potassium 3.3 - 3.5 mEq/L 05/24/17 08:15 05/27/17 16:55 Magnesium Sulfate 4 gm/Sodium Chloride 100 ml @ 50 mls/hr UNSCH PRN IV For Magnesium 0.9 - 1.1 mg/dL 05/24/17 08:15 Magnesium Oxide (Mag-Ox) 800 mg UNSCH PRN PO For Magnesium 1.2 - 1.6 mg/dL 05/24/17 08:15 Magnesium Sulfate 2 gm/Sodium Chloride 100 ml @ 50 mls/hr UNSCH PRN IV For Magnesium 1.2 - 1.6 mg/dL 05/24/17 08:15 Potassium Phosphate (K-Phos) 2,000 mg Q4H PRN PO For Phosphorus < 2.5 mg/dL 05/24/17 08:15 Sodium Phosphate 30 mmol/Sodium Chloride 250 ml @ 42 mls/hr UNSCH PRN IV For Phosphorus < 2.5 mg/dL 05/24/17 08:15 Potassium Phosphate (K-Phos) 2,000 mg UNSCH PRN PO/TUBE SEE LABEL COMMENTS 05/24/17 08:15 Potassium Phosphate 30 mmol/ Sodium Chloride 260 ml @ 42 mls/hr UNSCH PRN IV SEE LABEL COMMENTS 05/24/17 08:15 05/26/17 13:23 Hydralazine HCl (Apresoline Inj) 20 mg Q6H PRN IV PUSH SYS BP GREATER THAN 170 MMHG 05/26/17 13:00 06/02/17 05:53 Dextrose (D50w (Vial) Inj) 50 ml UNSCH PRN IV PUSH HYPOGLYCEMIA-SEE COMMENTS 05/27/17 00:45 06/01/17 12:10 Glucagon (Glucagon Inj) 1 mg UNSCH PRN OTHER HYPOGLYCEMIA-SEE COMMENTS 05/27/17 00:45 Diltiazem HCl (Cardizem) 90 mg QID PO 05/28/17 09:00 06/02/17 12:31 Morphine Sulfate (Morphine Inj) 2 mg Q3H PRN IV PUSH pain 5-10 05/28/17 09:30 06/02/17 10:05 Labetalol HCl (Trandate Inj) 10 mg Q2H PRN IV SBP > 160 05/28/17 17:45 06/01/17 13:42 Albuterol Sulfate (Albuterol Neb) 2.5 mg Q2HR NEB PRN NEB DYSPNEA 05/29/17 15:15 Pantoprazole Sodium (Protonix) 20 mg DAILY PO 05/30/17 09:00 06/02/17 08:10 Aspirin (Aspirin Chew) 81 mg DAILY CHEW 05/30/17 09:00 06/02/17 08:10 Heparin Sodium (Porcine) (Heparin Inj) 5,000 units Q8HR SQ 05/29/17 22:00 06/02/17 05:53 Acetaminophen/ Hydrocodone Bitart ([place] 5-325 Mg) 1 tab Q4H PRN PO pain 1-5 05/30/17 17:30 06/02/17 08:36 Vancomycin HCl 1500 mg/Sodium Chloride 515 ml @ 257.5 mls/ hr Q24H IV 06/01/17 12:00 06/02/17 12:31 Albuterol/ Ipratropium (Duoneb Neb) 1 ampule Q6HR NEB NEB 05/31/17 16:00 06/02/17 08:02 Insulin Human Regular (NovoLIN R SUPPLEMENTAL SCALE) 1 ACHS SQ 06/01/17 12:00 Thiamine HCl (Vitamin B1) 100 mg DAILY PO 06/02/17 09:00 06/02/17 08:10 Folic Acid (Folate) 1 mg DAILY PO 06/02/17 09:00 06/02/17 08:10 Multivitamins (Theragran) 1 tab DAILY PO 06/02/17 09:00 06/02/17 08:10 Metoprolol Tartrate (Lopressor) 25 mg Q8HR PO 06/01/17 14:00 06/02/17 05:53 Digoxin (Lanoxin) 0.125 mg DAILY PO 06/02/17 09:00 06/02/17 08:10 Miscellaneous Information SPECIFIC LAB TO BE NARDA... ONCE ONCE .XX 06/03/17 11:45 06/03/17 11:46 Magnesium Sulfate/ Dextrose 100 ml @ 100 mls/hr Q1H IV 06/02/17 12:00 06/02/17 13:59 06/02/17 12:31 OBJECTIVE. Vital Signs Date Time Temp Pulse Resp B/P (MAP) Pulse Ox O2 Delivery O2 Flow Rate FiO2 06/02/17 12:00 86 06/02/17 12:00 98.6 76 15 120/64 (82) 95 06/02/17 10:00 85 06/02/17 08:03 97 21 06/02/17 08:00 86 06/02/17 08:00 98.6 87 12 134/67 (89) 97 06/02/17 07:00 96 Room Air 06/02/17 06:00 88 06/02/17 04:00 77 06/02/17 04:00 98.8 77 15 160/79 (106) 97 06/02/17 02:00 80 06/02/17 00:00 79 06/02/17 00:00 98.8 79 12 136/72 (93) 96 06/01/17 22:00 94 06/01/17 21:00 15 06/01/17 20:28 96 21 06/01/17 20:00 99 06/01/17 20:00 99.0 94 11 149/77 (101) 94 06/01/17 20:00 96 Room Air 06/01/17 18:00 97 06/01/17 16:00 99.3 81 13 134/71 (92) 98 06/01/17 16:00 77 06/01/17 14:00 76 Laboratory Tests Test 06/01/17 04:15 06/02/17 03:35 White Blood Count 14.7 TH/MM3 12.4 TH/MM3 Red Blood Count 3.11 MIL/MM3 2.97 MIL/MM3 Hemoglobin 9.9 GM/DL 9.5 GM/DL Hematocrit 28.9 % 27.6 % Mean Corpuscular Volume 93.0 FL 93.0 FL Mean Corpuscular Hemoglobin 32.0 PG 32.1 PG Mean Corpuscular Hemoglobin Concent 34.4 % 34.5 % Red Cell Distribution Width 13.9 % 13.2 % Platelet Count 299 TH/MM3 329 TH/MM3 Mean Platelet Volume 8.7 FL 8.5 FL Neutrophils (%) (Auto) 71.2 % Lymphocytes (%) (Auto) 13.8 % Monocytes (%) (Auto) 12.3 % Eosinophils (%) (Auto) 2.4 % Basophils (%) (Auto) 0.3 % Neutrophils # (Auto) 8.9 TH/MM3 Lymphocytes # (Auto) 1.7 TH/MM3 Monocytes # (Auto) 1.5 TH/MM3 Eosinophils # (Auto) 0.3 TH/MM3 Basophils # (Auto) 0.0 TH/MM3 CBC Comment DIFF FINAL Differential Comment Laboratory Tests Test 06/01/17 04:15 06/02/17 03:35 Blood Urea Nitrogen 19 MG/DL 19 MG/DL Creatinine 0.94 MG/DL 0.86 MG/DL Random Glucose 103 MG/DL 69 MG/DL Calcium Level 8.7 MG/DL 8.4 MG/DL Sodium Level 138 MEQ/L 134 MEQ/L Potassium Level 3.6 MEQ/L 3.6 MEQ/L Chloride Level 103 MEQ/L 99 MEQ/L Carbon Dioxide Level 28.5 MEQ/L 27.7 MEQ/L Anion Gap 7 MEQ/L 7 MEQ/L Estimat Glomerular Filtration Rate 80 ML/MIN 88 ML/MIN Total Protein 6.3 GM/DL Albumin 1.6 GM/DL Phosphorus Level 4.0 MG/DL Magnesium Level 1.6 MG/DL Alkaline Phosphatase 92 U/L Aspartate Amino Transf (AST/SGOT) 24 U/L Alanine Aminotransferase (ALT/SGPT) 19 U/L Total Bilirubin 0.7 MG/DL Microbiology Date/Time Source Procedure Growth Status 05/28/17 05:22 Blood Peripheral Aerobic Blood Culture - Preliminary NO GROWTH IN 1 DAY Resulted 05/28/17 05:22 Blood Peripheral Anaerobic Blood Culture - Preliminary NO GROWTH IN 1 DAY Resulted 05/28/17 05:15 Blood Peripheral Aerobic Blood Culture - Preliminary NO GROWTH IN 1 DAY Resulted 05/28/17 05:15 Blood Peripheral Anaerobic Blood Culture - Preliminary NO GROWTH IN 1 DAY Resulted 05/27/17 15:45 Fluid Pleural Fluid Fungal Smear - Final NO FUNGAL ELEMENTS SEEN. Resulted 05/27/17 15:45 Fluid Pleural Fluid Fungal Culture Pending Resulted 05/27/17 15:45 Fluid Pleural Fluid Acid Fast Stain Pending Received 05/27/17 15:45 Fluid Pleural Fluid Mycobacterial Culture Pending Received 05/27/17 15:45 Fluid Pleural Fluid Gram Stain - Final Resulted 05/27/17 15:45 Fluid Pleural Fluid Body Fluid Culture - Preliminary NO GROWTH IN 48 HOURS. Resulted 05/27/17 12:30 Fluid Pleural Fluid Fungal Smear - Final NO FUNGAL ELEMENTS SEEN. Resulted 05/27/17 12:30 Fluid Pleural Fluid Fungal Culture Pending Resulted 05/27/17 12:30 Fluid Pleural Fluid Acid Fast Stain - Final NO ACID FAST BACILLI SEEN Resulted 05/27/17 12:30 Fluid Pleural Fluid Mycobacterial Culture Pending Resulted 05/27/17 12:30 Fluid Pleural Fluid Gram Stain - Final Resulted 05/27/17 12:30 Fluid Pleural Fluid Body Fluid Culture - Preliminary NO GROWTH IN 48 HOURS. Resulted 05/27/17 11:05 Abscess Back Fungal Smear - Final NO FUNGAL ELEMENTS SEEN. Resulted 05/27/17 11:05 Abscess Back Fungal Culture Pending Resulted 05/27/17 11:05 Abscess Back Acid Fast Stain - Final NO ACID FAST BACILLI SEEN Resulted 05/27/17 11:05 Abscess Back Mycobacterial Culture Pending Resulted 05/27/17 11:05 Abscess Back Gram Stain - Final Resulted 05/27/17 11:05 Wound Culture - Preliminary S. Aureus Mrsa Resulted IMAGING: Last 72 hours Impressions Chest X-Ray 05/31/17 0600 Signed Impressions: Service Date/Time: Wednesday, May 31, 2017 04:04 - CONCLUSION: No significant interval change Giovanni Hernandez MD Chest X-Ray 05/30/17 0600 Signed Impressions: Service Date/Time: Tuesday, May 30, 2017 04:45 - CONCLUSION: Stable chest appearance. Giovanni Hernandez MD Chest X-Ray 05/27/17 0600 Signed Impressions: Service Date/Time: Saturday, May 27, 2017 04:48 - CONCLUSION: Diffuse increase density likely representing edema which appears worse. Some degree of effusion needs to be considered especially on the left. Giovanni Gomez MD Needle Biopsy/Aspiration X-Ray 05/27/17 0000 Signed Impressions: Service Date/Time: Saturday, May 27, 2017 12:01 - CONCLUSION: Uncomplicated L2-L3 disc aspiration as above. Armando Ennis Jr., MD Chest X-Ray 05/27/17 0000 Signed Impressions: Service Date/Time: Saturday, May 27, 2017 13:04 - CONCLUSION: 1. Interval left thoracostomy tube placement. There is a kink involving the catheter proximal to the distal sideholes which could reduce or completely obstruct the drainage capability of the tube. 2. Mild left basilar atelectasis. 3. Unchanged right lower lobe infiltrate/effusion. Armando Ennis Jr., MD Chest CT 05/26/17 0000 Signed Impressions: Service Date/Time: Friday, May 26, 2017 10:55 - CONCLUSION: Moderate sized bilateral pleural effusions with small areas of patchy consolidation as well as passive atelectasis. This is a new finding from the prior chest x-ray. Noncardiogenic pulmonary edema versus infectious etiology. Armando Ennis Jr., MD Abdomen/Pelvis CT 05/26/17 0000 Signed Impressions: Service Date/Time: Friday, May 26, 2017 10:55 - CONCLUSION: Definite retroperitoneal inflammation around the abdominal aorta as well as extensive small lymph nodes throughout the retroperitoneum. There is also free fluid in both paracolic gutters right greater than left. I was initially concerning about a possible discitis at L2-3 with some cystic change along the endplates, particularly L2-3. Large bilateral pleural effusion with passive atelectasis. Sean Brown MD Upper Extremity Ultrasound 05/25/17 0000 Signed Impressions: Service Date/Time: Thursday, May 25, 2017 19:27 - CONCLUSION: Nonocclusive thrombus of the cephalic and basilic veins without evidence of proximal propagation. Armando Peterson MD Thoracic Spine MRI 05/24/17 0000 Signed Impressions: Service Date/Time: Wednesday, May 24, 2017 09:12 - CONCLUSION: 1. Minimal disc osteophyte complexes at T7-8, T8-9 and T9-10. 2. No spinal stenosis, focal disc herniation or significant neural foraminal narrowing. 3. No enhancing abscess collection. Abilio Eastman MD Lumbar Spine MRI 05/24/17 0000 Signed Impressions: Service Date/Time: Wednesday, May 24, 2017 09:12 - CONCLUSION: 1. Mild spinal stenosis and mild to moderate bilateral narrowing at L2-3, L3-4 and L4- 5. 2. Mild spinal stenosis and mild bilateral foraminal narrowing at L1-2. 3. Diffuse degenerative disease throughout the lumbar spine. 4. No evidence of enhancing abscess. Abilio Eastman MD Cervical Spine MRI 05/24/17 0000 Signed Impressions: Service Date/Time: Wednesday, May 24, 2017 09:12 - CONCLUSION: 1. Mild bilateral foraminal narrowing at C3-4, C4-5, C5-6 and C6-7. 2. No enhancing abscess. 3. Reversal of the normal cervical lordosis. 4. Diffuse cervical spondylosis from C3-C7. Abilio Eastman MD Brain MRI 05/24/17 0000 Signed Impressions: Service Date/Time: Wednesday, May 24, 2017 09:12 - CONCLUSION: 1. Mild periventricular white matter small vessel ischemic changes are noted bilaterally. 2. No acute infarct, acute hemorrhage, mass effect or extra- axial fluid collections. 3. No abnormal enhancing mass lesion. Abilio Eastman MD PHYSICAL EXAM. GENERAL: No acute distress. HEENT: The head is atraumatic. EOMI, No icterus. NECK: No swelling. No adenopathy. LUNGS: Clear breath sounds. HEART: Tachycardic. S1-S2. No audible murmurs or rubs or gallops. ABDOMEN: Bowel sounds present, soft. Non tender. EXTREMITIES: No clubbing or cyanosis or edema. SKIN: No diffuse rash. NEUROLOGIC: Non focal IMPRESSION 1. Abnormal cerebrospinal fluid suggesting meningitis and very likely bacterial meningitis. CSF culture has no growth. 2. Bacteremia MRSA. Persistently positive blood culture now negative. Vancomycin initially was sub therapeutic. 3. Discitis lumbar spine L 1 -2. due to MRSA. probable source of bacteremia. Extensive small lymph nodes in the abdomen ? etiology. May not be related to infection. 4. Positive toxicology screen for cocaine. Appears clinically stable. RECOMMENDATIONS 1. Continue Vancomycin. Aim for 15- 20 vanco trough. 2. Monitor the WBC. decreasing. 3. Monitor temp. 4. Monitor clinical status. In light of discitis we need to aim for IV antibiotic x 6 to 8 weeks. Giovanni Hernandez MD Jun 02, 2017 13:31
--- NOTE | 2017-06-02 16:29 | RADRPT ---
EXAM DATE/TIME: 06/02/2017 16:05 [facility] COMPARISON: CHEST SINGLE AP, June 02, 2017, 5:32. INDICATIONS : Bilateral chest tubes. MEDICAL HISTORY : Methicillin-resistant Staphylococcus aureus. SURGICAL HISTORY : None. ENCOUNTER: Subsequent ACUITY: 2 weeks PAIN SCORE: 5/10 LOCATION: Bilateral chest FINDINGS: Bilateral thoracostomy tubes are stable in position. Left subclavian central catheter is stable. Lung s remain stable with minimal parenchymal opacity in the bases. Cardiac contours are unchanged. CONCLUSION: Stable chest appearance Giovanni Hernandez MD on June 02, 2017 at 16:27 Board Certified Radiologist. This report was verified electronically.
--- NOTE | 2017-06-02 18:27 | RADRPT ---
EXAM DATE/TIME: 06/02/2017 18:04 [facility] COMPARISON: CHEST SINGLE AP, June 02, 2017, 16:05. INDICATIONS : Status post left chest tube removal. MEDICAL HISTORY : Methicillin-resistant Staphylococcus aureus SURGICAL HISTORY : None. ENCOUNTER: Subsequent ACUITY: 2 weeks PAIN SCORE: 6/10 LOCATION: Left chest FINDINGS: Mild patchy atelectasis seen at both bases. Left chest tube has been removed. There is a tiny left ap ical pneumothorax. Small caliber right chest tube remains in place. No pneumothorax. Left subclavian central venous catheter are again noted, tip in the superior vena cava. No significant pleural effusion. Heart size stable, normal. CONCLUSION: Left chest out. Tiny left apical pneumothorax. Giovanni Banda MD on June 02, 2017 at 18:24 Board Certified Radiologist. This report was verified electronically.
[2017-06-03] VITALS (13 sets, daily range): BP systolic 146–172; BP diastolic 77–84; PULSE 79–105; RESP 14–21; TEMP 98.9–99.3; O2SAT 96–100
[2017-06-03] MEDS: HALOPERIDOL LACTATE 5 MG/ML AMP IV PRN ×2 (01:09→23:10)
[2017-06-03] MEDS: MORPHINE SULFATE 2 MG/ML INJ IV PUSH PRN ×4 (03:18→19:59)
--- NOTE | 2017-06-03 03:28 | RADRPT ---
EXAM DATE/TIME: 06/03/2017 02:53 [facility] COMPARISON: CHEST SINGLE AP, June 02, 2017, 18:04. INDICATIONS : Shortness of breath. MEDICAL HISTORY : Methicillin-resistant Staphylococcus aureus SURGICAL HISTORY : None. ENCOUNTER: Subsequent ACUITY: 2 weeks PAIN SCORE: 5/10 LOCATION: Bilateral chest FINDINGS: Chest tube is present on the right side. Left subclavian line is present with tip overlapping the exp ected region of the SVC. Mild left lung base atelectasis and/or infiltrate is seen. Heart and mediast inum are unremarkable for technique. CONCLUSION: Mild left lung base atelectasis and/or infiltrate is seen. Liat Hirsch MD on June 03, 2017 at 3:26 Board Certified Radiologist. This report was verified electronically.
[2017-06-03 05:55] LABS: AUTOMATED NEUTROPHIL # 10.1 TH/MM3 (1.8-7.7); BASOPHIL # 0.1 TH/MM3 (0-0.2); BASOPHIL % 0.6 % (0.0-2.0); EOSINOPHIL # 0.2 TH/MM3 (0-0.4); EOSINOPHIL % 1.3 % (0.0-4.0); HEMATOCRIT 28.5 % (39.0-51.0); HEMOGLOBIN 9.7 GM/DL (13.0-17.0); LYMPHOCYTE # 1.3 TH/MM3 (1.0-4.8); MEAN CELL VOLUME 92.2 FL (80.0-100.0); MEAN CORPUSCULAR HEMOGLOBIN 31.5 PG (27.0-34.0); MEAN CORPUSCULAR HGB CONC 34.2 % (32.0-36.0); MEAN PLATELET VOLUME 7.9 FL (7.0-11.0); MONO % 10.9 % (0.0-8.0); MONOCYTE # 1.4 TH/MM3 (0-0.9); NEUT % 77.2 % (16.0-70.0); PLATELET COUNT 351 TH/MM3 (150-450); RED BLOOD COUNT 3.09 MIL/MM3 (4.50-5.90); RED CELL DISTRIBUTION WIDTH 13.2 % (11.6-17.2); WHITE BLOOD COUNT 13.1 TH/MM3 (4.0-11.0)
[2017-06-03] MEDS: HEPARIN SODIUM - SQ 10,000 UNITS/ML VIAL SQ SCH ×3 (06:02→21:09)
[2017-06-03] MEDS: METOPROLOL TARTRATE 25 MG TAB PO SCH ×3 (06:02→21:09)
[2017-06-03 06:22] LABS: ALBUMIN 1.7 GM/DL (3.4-5.0); ALT (GPT) 16 U/L (12-78); AST (GOT) 24 U/L (15-37); BICARBONATE 26.8 MEQ/L (21.0-32.0); BLOOD UREA NITROGEN 16 MG/DL (7-18); CALCIUM 8.8 MG/DL (8.5-10.1); CHLORIDE 98 MEQ/L (98-107); CREATININE 0.82 MG/DL (0.60-1.30); GLOMERULAR FILTRATION RATE 93 ML/MIN (>89); GLUCOSE,RANDOM 67 MG/DL (74-106); PHOSPHORUS 3.7 MG/DL (2.5-4.9); SODIUM (NA) 133 MEQ/L (136-145)
[2017-06-03 06:36] LABS: ALKALINE PHOSPHATASE 90 U/L (45-117); DIGOXIN 0.7 NG/ML (0.8-2.0); TOTAL BILIRUBIN ADULT 0.6 MG/DL (0.2-1.0); TOTAL PROTEIN 6.7 GM/DL (6.4-8.2)
[2017-06-03] MEDS: POTASSIUM CHLORIDE 25 MEQ EFFERVESCENT TAB PO PRN (06:36)
[2017-06-03] MEDS: INSULIN NovoLIN REGULAR SUPPLEMENTAL SCALE SQ SCH ×4 (08:00→20:18)
[2017-06-03] MEDS: RESP: ALBUTEROL 2.5 MG/IPRATROPIUM 0.5 MG NEB (SCH) NEB ×3 (08:45→21:20)
[2017-06-03] MEDS: SODIUM CHLORIDE 0.9% FLUSH 10 ML FLUSH IV FLUSH SCH ×2 (09:00→19:59)
[2017-06-03] MEDS: THIAMINE HCL 100 MG TAB PO SCH (09:28)
[2017-06-03] MEDS: FOLIC ACID 1 MG TAB PO SCH (09:28)
[2017-06-03] MEDS: PANTOPRAZOLE SOD 20 MG DELAYED RELEASE TAB PO SCH (09:29)
[2017-06-03] MEDS: ASPIRIN 81 MG CHEW TAB CHEW SCH (09:29)
[2017-06-03] MEDS: DIGOXIN 0.125 MG TAB PO SCH (09:29)
[2017-06-03] MEDS: MULTIVITAMIN TAB PO SCH (09:29)
[2017-06-03] MEDS: DILTIAZEM HCL 90 MG TAB PO SCH ×4 (11:04→19:59)
--- NOTE | 2017-06-03 11:37 | HHI.CCPN ---
Subjective Remarks/Hospital Course Patient is a 66-year-old male with history of anxiety, arthritis, substance abuse who was initially admitted to hospitalist service with altered mentation, and back pain. Found to have UDS positive for cocaine. In the ED patient was anxious and combative. Initially admitted to the medical floor. WBC 14.2 with bandemia, lactic acid 3.4, BUN/abdomen 27/1.49. Patient was given IV fluids, started on Cefepime and vanc but he continued to become more combative restless and altered. Patient was moved to the ICU and I immediately evaluated him. Patient is in four point restraints. He was unable to communicate, very agitated. Heart rate is in 160s rhythm appears to be A. fib with RVR. Patient was given 2 mg IV morphine and 2 mg IV Versed. He still intermittently agitated and started him on Precedex infusion. Patient is intermittently apneic but wakes up to painful stimuli. Because of severe agitation and drug withdrawal I am unable to get any additional history 05/23/17: Patient remains confused but intermittently oriented to person and somewhat place. Continues to repeat same words (Echolalia). Blood cultures GPC 3/4 bottles. Echo pending, also will proceed with LP. Change Cefepime to Rocephin, Add ampicillin 05/24/17: Continues to be septic encephalopathy. Blood cultures growing MRSA. Echo pending, but circled limited I did not see any vegetation. LP findings consistent with bacterial meningitis 05/25/17: Remains critically ill but stable. Encephalopathy slowly improving, on weaning doses of Precedex. Afib with RVR, re start Cardizem. LEXIE today to rule out endocarditis. 05/26/17: Patient remains intermittently agitated tachycardic tachypneic. Weaned off Precedex. In A. fib with RVR Cardizem IV push and Lopressor IV push given without response. Start Cardizem infusion. CT shows bilateral large pleural effusions because of MRSA bacteremia needs to be drained. CT abdomen pelvis probable L2-L3 discitis. Discussed with radiologist Dr. Brown. Discussed with daughter, will proceed with intubation and possible biopsy 05/27/17: Patient was intubated yesterday for worsening agitation respiratory distress and also to facilitate L2-L3, CT-guided needle biopsy to rule out discitis. Blood cultures from 05/25/17 growing GPC most likely MRSA. Recommend bacteremia could be related to the L2-L3 discitis. Patient remains critically ill. Remains in atrial fibrillation with rate controlled. Cannot anticoagulate due to anticipated procedures (lumbar disc biopsy). Started on D5 1/2NS for hypoglycemia 05/28/17: Remains intubated sedated, not following commands while on sedation. CT of the head done overnight for unequal pupils-no acute findings. Had bilateral chest tubes placed yesterday 1.6 L output combined. Urine output excellent 3 L. Daptomycin added yesterday by ID, continue vancomycin. WBC count 16.4 today from 11.8. No fever. Repeat blood cultures sent today 05/29: Extubated without competition. Currently on nasal cannula. Currently vancomycin for MRSA/discitis. Neurosurgery was consulted. Bilateral chest tubes in place 05/30: Resting comfortable in bed in no acute distress. MAXIMUM TEMPERATURE 100.4. White blood cell count decreasing. Neurosurgery recommended no surgical intervention at this time. Okay out of bed. Decreased output from chest tubes. On nasal cannula. More awake and attentive today. 05/31: Tmax 99.2. Currently afebrile. Had fecal containment device placed due to diarrhea. Elevated blood sugar today. 06/01: Tmax 99.7. Currently 99. Still intermittently confused. IV fluids discontinued. Currently resting in bed on nasal cannula in no acute distress Subjective 06/02: Tmax 99.3. Currently 98.6. Episodic hypoglycemia this morning resolved. Currently placing chested waterseal we'll attempt to remove today. Intermittently confused still. 06/03: Will remove right chest tube today. Objective Vital Signs Date Time Temp Pulse Resp B/P (MAP) Pulse Ox O2 Delivery O2 Flow Rate FiO2 06/03/17 10:00 105 06/03/17 08:00 99.2 14 156/84 (108) 97 06/03/17 07:00 Room Air 06/02/17 08:03 21 05/30/17 19:00 2.00 Intake and Output 06/03/17 06/03/17 06/04/17 08:00 16:00 00:00 Intake Total 500 ml Output Total 550 ml Balance -50 ml Result Diagram: 06/03/17 0534 06/03/17 0534 Imaging Last Impressions Chest X-Ray 06/02/17 0600 Signed Impressions: Service Date/Time: Friday, June 02, 2017 05:32 - CONCLUSION: Minimal left lung base atelectasis. Liat Hirsch MD Head CT 05/28/17 0000 Signed Impressions: Service Date/Time: May 01:16 - CONCLUSION: 1. No intracranial abnormality is seen. 2. Ethmoid and sphenoid sinus disease. Giovanni Gomez MD Needle Biopsy/Aspiration X-Ray 05/27/17 0000 Signed Impressions: Service Date/Time: Saturday, May 27, 2017 12:01 - CONCLUSION: Uncomplicated L2-L3 disc aspiration as above. Armando Ennis Jr., MD Chest CT 05/26/17 0000 Signed Impressions: Service Date/Time: Friday, May 26, 2017 10:55 - CONCLUSION: Moderate sized bilateral pleural effusions with small areas of patchy consolidation as well as passive atelectasis. This is a new finding from the prior chest x-ray. Noncardiogenic pulmonary edema versus infectious etiology. Armando Ennis Jr., MD Abdomen/Pelvis CT 05/26/17 0000 Signed Impressions: Service Date/Time: Friday, May 26, 2017 10:55 - CONCLUSION: Definite retroperitoneal inflammation around the abdominal aorta as well as extensive small lymph nodes throughout the retroperitoneum. There is also free fluid in both paracolic gutters right greater than left. I was initially concerning about a possible discitis at L2-3 with some cystic change along the endplates, particularly L2-3. Large bilateral pleural effusion with passive atelectasis. Sean Brown MD Upper Extremity Ultrasound 05/25/17 0000 Signed Impressions: Service Date/Time: Thursday, May 25, 2017 19:27 - CONCLUSION: Nonocclusive thrombus of the cephalic and basilic veins without evidence of proximal propagation. Armando Peterson MD Thoracic Spine MRI 05/24/17 0000 Signed Impressions: Service Date/Time: Wednesday, May 24, 2017 09:12 - CONCLUSION: 1. Minimal disc osteophyte complexes at T7-8, T8-9 and T9-10. 2. No spinal stenosis, focal disc herniation or significant neural foraminal narrowing. 3. No enhancing abscess collection. Abilio Eastman MD Lumbar Spine MRI 05/24/17 0000 Signed Impressions: Service Date/Time: Wednesday, May 24, 2017 09:12 - CONCLUSION: 1. Mild spinal stenosis and mild to moderate bilateral narrowing at L2-3, L3-4 and L4- 5. 2. Mild spinal stenosis and mild bilateral foraminal narrowing at L1-2. 3. Diffuse degenerative disease throughout the lumbar spine. 4. No evidence of enhancing abscess. Abilio Eastman MD Cervical Spine MRI 05/24/17 0000 Signed Impressions: Service Date/Time: Wednesday, May 24, 2017 09:12 - CONCLUSION: 1. Mild bilateral foraminal narrowing at C3-4, C4-5, C5-6 and C6-7. 2. No enhancing abscess. 3. Reversal of the normal cervical lordosis. 4. Diffuse cervical spondylosis from C3-C7. Abliio Eastman MD Brain MRI 05/24/17 0000 Signed Impressions: Service Date/Time: Wednesday, May 24, 2017 09:12 - CONCLUSION: 1. Mild periventricular white matter small vessel ischemic changes are noted bilaterally. 2. No acute infarct, acute hemorrhage, mass effect or extra- axial fluid collections. 3. No abnormal enhancing mass lesion. Abilio Eastman MD Objective Remarks GENERAL: 66-year-old male, currently resting in bed on nasal cannula in no acute distress SKIN: Well-perfused HEAD: Atraumatic. Normocephalic. No temporal or scalp tenderness. EYES: Pupils equal round and reactive about 3 millimeters bilaterally and reactive. ENT: Orotracheally intubated NECK: Trachea midline. No JVD or lymphadenopathy. Supple No neck stiffness CARDIOVASCULAR: RRR. S1, S2 no S4. RESPIRATORY: Bilateral course breath sounds and diminished at the bases. Bilateral pigtails with 0 no output overnight. GASTROINTESTINAL: Abdomen soft, non-tender, nondistended. MUSCULOSKELETAL: Difficult to asses for back tenderness, due to altered mentation. Right hand dorsum is warm with erythema NEUROLOGICAL: Cranial nerves II through XII grossly intact. Moves bilateral lower extremities to command.. Follows commands with upper extremities. Pupils are equal round reactive Date of Insertion: May 27, 2017 Line: Central Venous Catheter Side: Left Location: Subclavian A/P Assessment and Plan NEURO/PSYCH: Bacterial meningitis Severe encephalopathy UDS positive for cocaine MRSA L2-L3 discitis Substance abuse with severe withdrawal - Delirium and encephalopathy secondary to severe sepsis and drug withdrawal - Urine drug screen positive for cocaine, history of IV opiate abuse - Currently on haloperidol 5 mg IV every 6 hours when necessary agitation - Currently morphine sulfate 2 mg every 3 hours. Pain 6 or 10 Neurosurgery consultation for discitis recommended no surgical intervention at this time. Okay out of bed. Re-image area of concern within next 2-5 days - CIKS protocol Continue thiamine - MRI brain no acute finding. MRI spine no evidence of abscess, but CT abdomen showed possible L2-L3 discitis RESP: Large bilateral transudative pleural effusions s/p pigtail chest tube placement - Intubated and placed on mechanical ventilation 05/26/17, due to respiratory distress agitation and also to facilitate biopsy procedure. Extubated 05/28 - Nasal cannula to maintain saturations greater than equal to 92% Incentive spirometry while awake -Albuterol/ipratropium aerosols scheduled q6 and albuterol aerosols every 2 hours when necessary dyspnea - Moderate to large bilateral pleural effusions,s/p bilateral chest tube placement 05/27/17, no output overnight bilaterally. Will is to waterseal. Recheck x-ray this afternoon removed no pneumothorax CV: A. fib with RVR - normal sinus rhythm - Currently on digoxin 0.125 mg po daily metoprolol 25 every 8- - Also diltiazem 90 mg every 6 hours. Intermittently normal sinus rhythm.. Level 0.9 this AM - Atrial fibrillation is most likely from drug withdrawal will not anticoagulate due to lumbar disc biopsy 05/27, and patient is a poor candidate for long anticoagulation due to alcohol and drug dependence -Okayed low-dose aspirin per invasive radiology - 2-D echo NL EF, Dr. An consulted for LEXIE-negative for vegetation, clot GI: Hepatitis C antibody positive Hypoalbuminemia Elevated total bilirubin -Clear liquid diet. Advance as tolerated per speech therapy -. Pantoprazole 20 mg by mouth daily - Docusate sodium/senna 1 tablet twice a day bowel regimen Renal/: - Monitor renal function closely. - Aggressive fluid resuscitation - Monitor CPK ID: Severe sepsis with MRSA bacteremia. L2-L3 discitis - Continue meningitic doses of Vancomycin, Daptomycin added 05/27 due to vanc DASHAWN 2 - ID Dr. Hernandez. LP findings consistent with bacterial meningitis - CSF cx neg to date, but LP was done after 24 hours on ABX - [address] abd shows ? L2-L3 discitis. f/u lumbar disc biopsy, culture HEME: Leukocytosis Normocytic anemia - Leukocytosis from sepsis. Monitor CBC, CMP ENDO/FEN: Hypoglycemia Hyponatremia Hypo-magnesium SSI with Accu-Cheks every 4 hours to maintain euglycemia/low regimen Novulog - Electrolyte replacement per protocol receiving 2 g mag sulfate IV 1 today. PROPH: - Bilateral lower extremity SCDs. Heparin subcutaneous/pantoprazole LINES: -CVL left subclavian 05/27 Level II follow-up Choco Harman MD Jun 03, 2017 11:37
[2017-06-03] MEDS ORDERED: PHARMACY ORDERED LAB ONE (11:45)
[2017-06-03] MEDS: VANCOMYCIN 1,500 MG/NS 500 ML IV SCH ×2 (13:52)
[2017-06-04] VITALS (12 sets, daily range): BP systolic 132–182; BP diastolic 66–84; PULSE 71–152; RESP 14–26; TEMP 97.7–98.6; O2SAT 95–98
[2017-06-04] MEDS: ACETAMINOPHEN/HYDROcodone 325 MG/5 MG TAB PO PRN ×2 (00:40→10:46)
[2017-06-04] MEDS: MORPHINE SULFATE 2 MG/ML INJ IV PUSH PRN (00:40)
[2017-06-04] MEDS: LABETALOL HCL 100 MG/20 ML VIAL IV PRN (00:43)
[2017-06-04] MEDS ORDERED: MELATONIN 5 MG TAB PO ONE (01:30)
[2017-06-04 02:05] LABS: AUTOMATED NEUTROPHIL # 7.8 TH/MM3 (1.8-7.7); BASOPHIL # 0.1 TH/MM3 (0-0.2); BASOPHIL % 0.7 % (0.0-2.0); EOSINOPHIL # 0.2 TH/MM3 (0-0.4); EOSINOPHIL % 1.8 % (0.0-4.0); HEMATOCRIT 26.5 % (39.0-51.0); LYMPH % 12.2 % (9.0-44.0); LYMPHOCYTE # 1.4 TH/MM3 (1.0-4.8); MEAN CELL VOLUME 91.8 FL (80.0-100.0); MEAN CORPUSCULAR HEMOGLOBIN 31.4 PG (27.0-34.0); MEAN CORPUSCULAR HGB CONC 34.1 % (32.0-36.0); MEAN PLATELET VOLUME 8.4 FL (7.0-11.0); MONO % 14.8 % (0.0-8.0); MONOCYTE # 1.7 TH/MM3 (0-0.9); NEUT % 70.5 % (16.0-70.0); PLATELET COUNT 395 TH/MM3 (150-450); RED BLOOD COUNT 2.89 MIL/MM3 (4.50-5.90); RED CELL DISTRIBUTION WIDTH 13.3 % (11.6-17.2); WHITE BLOOD COUNT 11.1 TH/MM3 (4.0-11.0)
[2017-06-04 02:15] LABS: BICARBONATE 28.8 MEQ/L (21.0-32.0); CALCIUM 8.9 MG/DL (8.5-10.1); CREATININE 0.85 MG/DL (0.60-1.30); MAGNESIUM 1.9 MG/DL (1.5-2.5)
[2017-06-04] MEDS: RESP: ALBUTEROL 2.5 MG/IPRATROPIUM 0.5 MG NEB (SCH) NEB ×2 (04:33→09:40)
[2017-06-04] MEDS: HEPARIN SODIUM - SQ 10,000 UNITS/ML VIAL SQ SCH ×3 (05:39→21:27)
[2017-06-04] MEDS: METOPROLOL TARTRATE 25 MG TAB PO SCH ×3 (05:39→21:27)
[2017-06-04] MEDS: VANCOMYCIN 1,500 MG/NS 500 ML IV SCH ×2 (06:49)
[2017-06-04] MEDS: INSULIN NovoLIN REGULAR SUPPLEMENTAL SCALE SQ SCH ×4 (08:00→20:17)
[2017-06-04] MEDS: THIAMINE HCL 100 MG TAB PO SCH (08:44)
[2017-06-04] MEDS: MULTIVITAMIN TAB PO SCH (08:44)
[2017-06-04] MEDS: DILTIAZEM HCL 90 MG TAB PO SCH ×4 (08:44→21:27)
[2017-06-04] MEDS: FOLIC ACID 1 MG TAB PO SCH (08:44)
[2017-06-04] MEDS: ASPIRIN 81 MG CHEW TAB CHEW SCH (08:44)
[2017-06-04] MEDS: DIGOXIN 0.125 MG TAB PO SCH (08:45)
[2017-06-04] MEDS: SODIUM CHLORIDE 0.9% FLUSH 10 ML FLUSH IV FLUSH SCH ×2 (08:45→21:00)
[2017-06-04] MEDS: PANTOPRAZOLE SOD 20 MG DELAYED RELEASE TAB PO SCH (08:45)
--- NOTE | 2017-06-04 11:32 | HHI.CCPN ---
Subjective Remarks/Hospital Course Patient is a 66-year-old male with history of anxiety, arthritis, substance abuse who was initially admitted to hospitalist service with altered mentation, and back pain. Found to have UDS positive for cocaine. In the ED patient was anxious and combative. Initially admitted to the medical floor. WBC 14.2 with bandemia, lactic acid 3.4, BUN/abdomen 27/1.49. Patient was given IV fluids, started on Cefepime and vanc but he continued to become more combative restless and altered. Patient was moved to the ICU and I immediately evaluated him. Patient is in four point restraints. He was unable to communicate, very agitated. Heart rate is in 160s rhythm appears to be A. fib with RVR. Patient was given 2 mg IV morphine and 2 mg IV Versed. He still intermittently agitated and started him on Precedex infusion. Patient is intermittently apneic but wakes up to painful stimuli. Because of severe agitation and drug withdrawal I am unable to get any additional history 05/23/17: Patient remains confused but intermittently oriented to person and somewhat place. Continues to repeat same words (Echolalia). Blood cultures GPC 3/4 bottles. Echo pending, also will proceed with LP. Change Cefepime to Rocephin, Add ampicillin 05/24/17: Continues to be septic encephalopathy. Blood cultures growing MRSA. Echo pending, but circled limited I did not see any vegetation. LP findings consistent with bacterial meningitis 05/25/17: Remains critically ill but stable. Encephalopathy slowly improving, on weaning doses of Precedex. Afib with RVR, re start Cardizem. LEXIE today to rule out endocarditis. 05/26/17: Patient remains intermittently agitated tachycardic tachypneic. Weaned off Precedex. In A. fib with RVR Cardizem IV push and Lopressor IV push given without response. Start Cardizem infusion. CT shows bilateral large pleural effusions because of MRSA bacteremia needs to be drained. CT abdomen pelvis probable L2-L3 discitis. Discussed with radiologist Dr. Brown. Discussed with daughter, will proceed with intubation and possible biopsy 05/27/17: Patient was intubated yesterday for worsening agitation respiratory distress and also to facilitate L2-L3, CT-guided needle biopsy to rule out discitis. Blood cultures from 05/25/17 growing GPC most likely MRSA. Recommend bacteremia could be related to the L2-L3 discitis. Patient remains critically ill. Remains in atrial fibrillation with rate controlled. Cannot anticoagulate due to anticipated procedures (lumbar disc biopsy). Started on D5 1/2NS for hypoglycemia 05/28/17: Remains intubated sedated, not following commands while on sedation. CT of the head done overnight for unequal pupils-no acute findings. Had bilateral chest tubes placed yesterday 1.6 L output combined. Urine output excellent 3 L. Daptomycin added yesterday by ID, continue vancomycin. WBC count 16.4 today from 11.8. No fever. Repeat blood cultures sent today 05/29: Extubated without competition. Currently on nasal cannula. Currently vancomycin for MRSA/discitis. Neurosurgery was consulted. Bilateral chest tubes in place 05/30: Resting comfortable in bed in no acute distress. MAXIMUM TEMPERATURE 100.4. White blood cell count decreasing. Neurosurgery recommended no surgical intervention at this time. Okay out of bed. Decreased output from chest tubes. On nasal cannula. More awake and attentive today. 05/31: Tmax 99.2. Currently afebrile. Had fecal containment device placed due to diarrhea. Elevated blood sugar today. 06/01: Tmax 99.7. Currently 99. Still intermittently confused. IV fluids discontinued. Currently resting in bed on nasal cannula in no acute distress Subjective 06/02: Tmax 99.3. Currently 98.6. Episodic hypoglycemia this morning resolved. Currently placing chested waterseal we'll attempt to remove today. Intermittently confused still. 06/03: Will remove right chest tube today. 06/04: On vancomycin for MRSA discitis. Long history of drug abuse. Objective Vital Signs Date Time Temp Pulse Resp B/P (MAP) Pulse Ox O2 Delivery O2 Flow Rate FiO2 06/04/17 10:00 77 06/04/17 09:44 96 06/04/17 08:00 98.3 19 158/82 (107) 06/04/17 07:00 Room Air 06/03/17 21:20 21 Intake and Output 06/04/17 06/04/17 06/05/17 08:00 16:00 00:00 Intake Total 500 ml Output Total 100 ml Balance 400 ml Result Diagram: 06/04/17 0138 06/04/17 0138 Other Results Laboratory Tests Test 12/28/17 01:35 Blood Gas Puncture Site RT RADIAL Blood Gas Patient Temperature 98.6 Blood Gas HCO3 26 mmol/L (22-26) Blood Gas Base Excess 2.9 mmol/L (-2-2) Blood Gas Oxygen Saturation 94 % (90-100) Arterial Blood pH 7.47 (7.380-7.420) Arterial Blood Partial Pressure CO2 37 mmHg (38-42) Arterial Blood Partial Pressure O2 85 mmHg (61-120) Arterial Blood Oxygen Content 12.4 Vol % (12.0-20.0) Arterial Blood Carboxyhemoglobin 1.3 % (0-4) Arterial Blood Methemoglobin 1.1 % (0-2) Blood Gas Hemoglobin 9.2 G/DL (12.0-16.0) Oxygen Delivery Device ROOM AIR Blood Gas Inspired Oxygen 21 % Imaging Last Impressions Chest X-Ray 06/02/17 0600 Signed Impressions: Service Date/Time: Friday, June 02, 2017 05:32 - CONCLUSION: Minimal left lung base atelectasis. KFeliz Hirsch MD Head CT 05/28/17 0000 Signed Impressions: Service Date/Time: May 01:16 - CONCLUSION: 1. No intracranial abnormality is seen. 2. Ethmoid and sphenoid sinus disease. Giovanni Gomez MD Needle Biopsy/Aspiration X-Ray 05/27/17 0000 Signed Impressions: Service Date/Time: Saturday, May 27, 2017 12:01 - CONCLUSION: Uncomplicated L2-L3 disc aspiration as above. Armando Ennis Jr., MD Chest CT 05/26/17 0000 Signed Impressions: Service Date/Time: Friday, May 26, 2017 10:55 - CONCLUSION: Moderate sized bilateral pleural effusions with small areas of patchy consolidation as well as passive atelectasis. This is a new finding from the prior chest x-ray. Noncardiogenic pulmonary edema versus infectious etiology. Armando Ennis Jr., MD Abdomen/Pelvis CT 05/26/17 0000 Signed Impressions: Service Date/Time: Friday, May 26, 2017 10:55 - CONCLUSION: Definite retroperitoneal inflammation around the abdominal aorta as well as extensive small lymph nodes throughout the retroperitoneum. There is also free fluid in both paracolic gutters right greater than left. I was initially concerning about a possible discitis at L2-3 with some cystic change along the endplates, particularly L2-3. Large bilateral pleural effusion with passive atelectasis. Sean Brown MD Upper Extremity Ultrasound 05/25/17 0000 Signed Impressions: Service Date/Time: Thursday, May 25, 2017 19:27 - CONCLUSION: Nonocclusive thrombus of the cephalic and basilic veins without evidence of proximal propagation. Armando Peterson MD Thoracic Spine MRI 05/24/17 0000 Signed Impressions: Service Date/Time: Wednesday, May 24, 2017 09:12 - CONCLUSION: 1. Minimal disc osteophyte complexes at T7-8, T8-9 and T9-10. 2. No spinal stenosis, focal disc herniation or significant neural foraminal narrowing. 3. No enhancing abscess collection. Abilio Eastman MD Lumbar Spine MRI 05/24/17 0000 Signed Impressions: Service Date/Time: Wednesday, May 24, 2017 09:12 - CONCLUSION: 1. Mild spinal stenosis and mild to moderate bilateral narrowing at L2-3, L3-4 and L4- 5. 2. Mild spinal stenosis and mild bilateral foraminal narrowing at L1-2. 3. Diffuse degenerative disease throughout the lumbar spine. 4. No evidence of enhancing abscess. Abilio Eastman MD Cervical Spine MRI 05/24/17 0000 Signed Impressions: Service Date/Time: Wednesday, May 24, 2017 09:12 - CONCLUSION: 1. Mild bilateral foraminal narrowing at C3-4, C4-5, C5-6 and C6-7. 2. No enhancing abscess. 3. Reversal of the normal cervical lordosis. 4. Diffuse cervical spondylosis from C3-C7. Abilio Eastman MD Brain MRI 05/24/17 0000 Signed Impressions: Service Date/Time: Wednesday, May 24, 2017 09:12 - CONCLUSION: 1. Mild periventricular white matter small vessel ischemic changes are noted bilaterally. 2. No acute infarct, acute hemorrhage, mass effect or extra- axial fluid collections. 3. No abnormal enhancing mass lesion. Abilio Eastman MD Objective Remarks GENERAL: 66-year-old male, active when not sleeping. SKIN: Well-perfused HEAD: Atraumatic. Normocephalic. EYES: Pupils equal round and reactive about 3 millimeters bilaterally and reactive. ENT: Airway widely patent. NECK: Trachea midline. Supple. No neck stiffness CARDIOVASCULAR: RRR. S1, S2 no S4. RESPIRATORY: Bilateral course breath sounds and diminished at the bases. Bilateral pigtail drains removed. GASTROINTESTINAL: Abdomen soft, non-tender, nondistended. No guarding, BS active. MUSCULOSKELETAL: Difficult to asses for back tenderness, due to altered mentation. Right hand dorsum is warm with erythema, largely resolved. NEUROLOGICAL: Cranial nerves II through XII grossly intact. Moves bilateral lower extremities to command.. Follows commands with upper extremities. Pupils are equal round reactive Date of Insertion: May 27, 2017 Line: Central Venous Catheter Side: Left Location: Subclavian A/P Assessment and Plan NEURO/PSYCH: Bacterial meningitis Severe encephalopathy UDS positive for cocaine MRSA L2-L3 discitis Substance abuse with severe withdrawal - Delirium and encephalopathy secondary to severe sepsis and drug withdrawal - Urine drug screen positive for cocaine, history of IV opiate abuse - Currently on haloperidol 5 mg IV every 6 hours when necessary agitation - Currently morphine sulfate 2 mg every 3 hours. Pain 6 or 10 Neurosurgery consultation for discitis recommended no surgical intervention at this time. Okay out of bed. Re-image area of concern within next 2-5 days - [facility] protocol Continue thiamine - MRI brain no acute finding. MRI spine no evidence of abscess, but CT abdomen showed possible L2-L3 discitis RESP: Large bilateral transudative pleural effusions s/p pigtail chest tube placement - Intubated and placed on mechanical ventilation 05/26/17, due to respiratory distress agitation and also to facilitate biopsy procedure. Extubated 05/28 - Nasal cannula to maintain saturations greater than equal to 92% Incentive spirometry while awake -Albuterol/ipratropium aerosols scheduled q6 and albuterol aerosols every 2 hours when necessary dyspnea - Moderate to large bilateral pleural effusions,s/p bilateral chest tube placement 05/27/17, no output overnight bilaterally. Will is to waterseal. Recheck x-ray this afternoon removed no pneumothorax CV: A. fib with RVR - normal sinus rhythm - Currently on digoxin 0.125 mg po daily metoprolol 25 every 8- - Also diltiazem 90 mg every 6 hours. Intermittently normal sinus rhythm.. Level 0.9 this AM - Atrial fibrillation is most likely from drug withdrawal will not anticoagulate due to lumbar disc biopsy 05/27, and patient is a poor candidate for long anticoagulation due to alcohol and drug dependence -Okayed low-dose aspirin per invasive radiology - 2-D echo NL EF, Dr. An consulted for LEXIE-negative for vegetation, clot GI: Hepatitis C antibody positive Hypoalbuminemia Elevated total bilirubin -Clear liquid diet. Advance as tolerated per speech therapy -. Pantoprazole 20 mg by mouth daily - Docusate sodium/senna 1 tablet twice a day bowel regimen Renal/: - Monitor renal function closely. - Aggressive fluid resuscitation - Monitor CPK ID: Severe sepsis with MRSA bacteremia. L2-L3 discitis - Continue meningitic doses of Vancomycin, Daptomycin added 05/27 due to vanc DASHAWN 2 - ID Dr. Hernandez. LP findings consistent with bacterial meningitis - CSF cx neg to date, but LP was done after 24 hours on ABX - [address] abd shows ? L2-L3 discitis. f/u lumbar disc biopsy, culture HEME: Leukocytosis Normocytic anemia - Leukocytosis from sepsis. Monitor CBC, CMP ENDO/FEN: Hypoglycemia Hyponatremia Hypo-magnesium SSI with Accu-Cheks every 4 hours to maintain euglycemia/low regimen Novulog - Electrolyte replacement per protocol receiving 2 g mag sulfate IV 1 today. PROPH: - Bilateral lower extremity SCDs. Heparin subcutaneous/pantoprazole LINES: -CVL left subclavian 05/27 Overall impression: Sepsis largely controlled on Vancomycin. Mentation improving , periodically confused. Choco Harman MD Jun 04, 2017 11:32
--- NOTE | 2017-06-04 12:17 | RADRPT ---
EXAM DATE/TIME: 06/04/2017 11:33 [facility] COMPARISON: CHEST SINGLE AP, June 03, 2017, 2:53. INDICATIONS : Evaluate pneumothorax. Post chest tube removal. MEDICAL HISTORY : None. SURGICAL HISTORY : None. ENCOUNTER: Initial ACUITY: 1 day PAIN SCORE: Non-responsive. LOCATION: Bilateral chest FINDINGS: There has been interval removal of a right chest pigtail thoracostomy tube. No evidence of pneumothor ax. Minimal residual apical pleural thickening. Lungs are otherwise symmetrically aerated and grossly clear. Cardiac contours are stable. Left subclavian central line remains in good position. CONCLUSION: Interval right thoracostomy tube removal without complication. Giovanni Hernandez MD on June 04, 2017 at 12:15 Board Certified Radiologist. This report was verified electronically.
--- NOTE | 2017-06-04 14:26 | HHI.IDPN ---
Note Infectious Disease Note Patient is drowsy. No complaints. Notes some back pain. Afebrile. Post L2-3 disc space aspirate. Culture MRSA Blood culture has MRSA 05/25, 05/22. Blood culture 05/28 - no growth. Patient admitted to hospital with altered mental status. The patient was evaluated in the emergency department and he was complaining of lower back pain. The patient had positive screen of the urine for cocaine. PAST MEDICAL HISTORY: 1. Arthritis 2. Anxiety. 3. Substance abuse. ALLERGIES NO KNOWN DRUG ALLERGIES. ANTIBIOTICS Vancomycin. OBJECTIVE. Vital Signs Date Time Temp Pulse Resp B/P (MAP) Pulse Ox O2 Delivery O2 Flow Rate FiO2 06/04/17 12:00 98.5 78 14 139/66 (90) 98 06/04/17 12:00 78 06/04/17 10:00 77 06/04/17 09:44 96 06/04/17 08:00 81 06/04/17 08:00 98.3 88 19 158/82 (107) 98 06/04/17 07:00 98 Room Air 06/04/17 06:00 91 06/04/17 04:00 81 20 160/77 (104) 95 06/04/17 04:00 81 06/04/17 02:00 74 06/04/17 01:30 152 06/04/17 00:00 71 06/04/17 00:00 98.6 71 26 182/84 (116) 97 06/03/17 22:00 91 06/03/17 21:20 98 21 06/03/17 20:00 99.3 91 21 164/81 (108) 100 06/03/17 20:00 91 06/03/17 19:00 Room Air 98 06/03/17 18:00 92 06/03/17 16:00 83 06/03/17 16:00 98.9 84 17 158/77 (104) 98 Laboratory Tests Test 06/03/17 05:34 06/04/17 01:38 White Blood Count 13.1 TH/MM3 11.1 TH/MM3 Red Blood Count 3.09 MIL/MM3 2.89 MIL/MM3 Hemoglobin 9.7 GM/DL 9.0 GM/DL Hematocrit 28.5 % 26.5 % Mean Corpuscular Volume 92.2 FL 91.8 FL Mean Corpuscular Hemoglobin 31.5 PG 31.4 PG Mean Corpuscular Hemoglobin Concent 34.2 % 34.1 % Red Cell Distribution Width 13.2 % 13.3 % Platelet Count 351 TH/MM3 395 TH/MM3 Mean Platelet Volume 7.9 FL 8.4 FL Neutrophils (%) (Auto) 77.2 % 70.5 % Lymphocytes (%) (Auto) 10.0 % 12.2 % Monocytes (%) (Auto) 10.9 % 14.8 % Eosinophils (%) (Auto) 1.3 % 1.8 % Basophils (%) (Auto) 0.6 % 0.7 % Neutrophils # (Auto) 10.1 TH/MM3 7.8 TH/MM3 Lymphocytes # (Auto) 1.3 TH/MM3 1.4 TH/MM3 Monocytes # (Auto) 1.4 TH/MM3 1.7 TH/MM3 Eosinophils # (Auto) 0.2 TH/MM3 0.2 TH/MM3 Basophils # (Auto) 0.1 TH/MM3 0.1 TH/MM3 CBC Comment DIFF FINAL DIFF FINAL Differential Comment Laboratory Tests Test 06/03/17 05:34 06/04/17 01:38 Blood Urea Nitrogen 16 MG/DL 17 MG/DL Creatinine 0.82 MG/DL 0.85 MG/DL Random Glucose 67 MG/DL 87 MG/DL Total Protein 6.7 GM/DL Albumin 1.7 GM/DL Calcium Level 8.8 MG/DL 8.9 MG/DL Phosphorus Level 3.7 MG/DL Magnesium Level 2.0 MG/DL 1.9 MG/DL Alkaline Phosphatase 90 U/L Aspartate Amino Transf (AST/SGOT) 24 U/L Alanine Aminotransferase (ALT/SGPT) 16 U/L Total Bilirubin 0.6 MG/DL Sodium Level 133 MEQ/L 132 MEQ/L Potassium Level 3.5 MEQ/L 3.6 MEQ/L Chloride Level 98 MEQ/L 97 MEQ/L Carbon Dioxide Level 26.8 MEQ/L 28.8 MEQ/L Anion Gap 8 MEQ/L 6 MEQ/L Estimat Glomerular Filtration Rate 93 ML/MIN 90 ML/MIN Microbiology Date/Time Source Procedure Growth Status 05/28/17 05:22 Blood Peripheral Aerobic Blood Culture - Preliminary NO GROWTH IN 1 DAY Resulted 05/28/17 05:22 Blood Peripheral Anaerobic Blood Culture - Preliminary NO GROWTH IN 1 DAY Resulted 05/28/17 05:15 Blood Peripheral Aerobic Blood Culture - Preliminary NO GROWTH IN 1 DAY Resulted 05/28/17 05:15 Blood Peripheral Anaerobic Blood Culture - Preliminary NO GROWTH IN 1 DAY Resulted 05/27/17 15:45 Fluid Pleural Fluid Fungal Smear - Final NO FUNGAL ELEMENTS SEEN. Resulted 05/27/17 15:45 Fluid Pleural Fluid Fungal Culture Pending Resulted 05/27/17 15:45 Fluid Pleural Fluid Acid Fast Stain Pending Received 05/27/17 15:45 Fluid Pleural Fluid Mycobacterial Culture Pending Received 05/27/17 15:45 Fluid Pleural Fluid Gram Stain - Final Resulted 05/27/17 15:45 Fluid Pleural Fluid Body Fluid Culture - Preliminary NO GROWTH IN 48 HOURS. Resulted 05/27/17 12:30 Fluid Pleural Fluid Fungal Smear - Final NO FUNGAL ELEMENTS SEEN. Resulted 05/27/17 12:30 Fluid Pleural Fluid Fungal Culture Pending Resulted 05/27/17 12:30 Fluid Pleural Fluid Acid Fast Stain - Final NO ACID FAST BACILLI SEEN Resulted 05/27/17 12:30 Fluid Pleural Fluid Mycobacterial Culture Pending Resulted 05/27/17 12:30 Fluid Pleural Fluid Gram Stain - Final Resulted 05/27/17 12:30 Fluid Pleural Fluid Body Fluid Culture - Preliminary NO GROWTH IN 48 HOURS. Resulted 05/27/17 11:05 Abscess Back Fungal Smear - Final NO FUNGAL ELEMENTS SEEN. Resulted 05/27/17 11:05 Abscess Back Fungal Culture Pending Resulted 05/27/17 11:05 Abscess Back Acid Fast Stain - Final NO ACID FAST BACILLI SEEN Resulted 05/27/17 11:05 Abscess Back Mycobacterial Culture Pending Resulted 05/27/17 11:05 Abscess Back Gram Stain - Final Resulted 05/27/17 11:05 Wound Culture - Preliminary S. Aureus Mrsa Resulted IMAGING: Chest X-Ray 06/04/17 0000 Signed Impressions: Service Date/Time: May 11:33 - CONCLUSION: Interval right thoracostomy tube removal without complication. Giovanni Hernandez MD Chest X-Ray 06/03/17 0600 Signed Impressions: Service Date/Time: Saturday, June 03, 2017 02:53 - CONCLUSION: Mild left lung base atelectasis and/or infiltrate is seen. Liat Hirsch MD Chest X-Ray 06/02/17 1800 Signed Impressions: Service Date/Time: Friday, June 02, 2017 18:04 - CONCLUSION: Left chest out. Tiny left apical pneumothorax. Giovanni Banda MD Chest X-Ray 06/02/17 1600 Signed Impressions: Service Date/Time: Friday, June 02, 2017 16:05 - CONCLUSION: Stable chest appearance Giovanni Hernandez MD Chest CT 05/26/17 0000 Signed Impressions: Service Date/Time: Friday, May 26, 2017 10:55 - CONCLUSION: Moderate sized bilateral pleural effusions with small areas of patchy consolidation as well as passive atelectasis. This is a new finding from the prior chest x-ray. Noncardiogenic pulmonary edema versus infectious etiology. Armando Ennis Jr., MD Abdomen/Pelvis CT 05/26/17 0000 Signed Impressions: Service Date/Time: Friday, May 26, 2017 10:55 - CONCLUSION: Definite retroperitoneal inflammation around the abdominal aorta as well as extensive small lymph nodes throughout the retroperitoneum. There is also free fluid in both paracolic gutters right greater than left. I was initially concerning about a possible discitis at L2-3 with some cystic change along the endplates, particularly L2-3. Large bilateral pleural effusion with passive atelectasis. Sean Brown MD Upper Extremity Ultrasound 05/25/17 0000 Signed Impressions: Service Date/Time: Thursday, May 25, 2017 19:27 - CONCLUSION: Nonocclusive thrombus of the cephalic and basilic veins without evidence of proximal propagation. Armando Peterson MD Thoracic Spine MRI 05/24/17 0000 Signed Impressions: Service Date/Time: Wednesday, May 24, 2017 09:12 - CONCLUSION: 1. Minimal disc osteophyte complexes at T7-8, T8-9 and T9-10. 2. No spinal stenosis, focal disc herniation or significant neural foraminal narrowing. 3. No enhancing abscess collection. Abilio Eastman MD Lumbar Spine MRI 05/24/17 0000 Signed Impressions: Service Date/Time: Wednesday, May 24, 2017 09:12 - CONCLUSION: 1. Mild spinal stenosis and mild to moderate bilateral narrowing at L2-3, L3-4 and L4- 5. 2. Mild spinal stenosis and mild bilateral foraminal narrowing at L1-2. 3. Diffuse degenerative disease throughout the lumbar spine. 4. No evidence of enhancing abscess. Abilio Eastman MD Cervical Spine MRI 05/24/17 0000 Signed Impressions: Service Date/Time: Wednesday, May 24, 2017 09:12 - CONCLUSION: 1. Mild bilateral foraminal narrowing at C3-4, C4-5, C5-6 and C6-7. 2. No enhancing abscess. 3. Reversal of the normal cervical lordosis. 4. Diffuse cervical spondylosis from C3-C7. Abilio Eastman MD Brain MRI 05/24/17 0000 Signed Impressions: Service Date/Time: Wednesday, May 24, 2017 09:12 - CONCLUSION: 1. Mild periventricular white matter small vessel ischemic changes are noted bilaterally. 2. No acute infarct, acute hemorrhage, mass effect or extra- axial fluid collections. 3. No abnormal enhancing mass lesion. Abilio Eastman MD PHYSICAL EXAM. GENERAL: No acute distress. HEENT: The head is atraumatic. EOMI, No icterus. NECK: No swelling. No adenopathy. LUNGS: Clear decreased breath sounds. HEART: Tachycardic. S1-S2. No audible murmurs or rubs or gallops. ABDOMEN: Bowel sounds present, soft. Non tender. EXTREMITIES: No clubbing or cyanosis or edema. SKIN: No diffuse rash. NEUROLOGIC: Non focal IMPRESSION 1. Abnormal cerebrospinal fluid suggesting meningitis and very likely bacterial meningitis. CSF culture has no growth. 2. Bacteremia MRSA. Persistently positive blood culture now negative. Vancomycin initially was sub therapeutic. 3. Discitis lumbar spine L 1 -2. due to MRSA. probable source of bacteremia. Extensive small lymph nodes in the abdomen ? etiology. May not be related to infection. 4. Positive toxicology screen for cocaine. Appears clinically stable. RECOMMENDATIONS 1. Continue Vancomycin. Aim for 15- 20 vanco trough. 2. Monitor the WBC. decreasing. 3. Monitor temp. 4. Monitor clinical status. In light of discitis we need to aim for IV antibiotic until Jul 20, 2017. He will need arrangement for outpatient and follow up with ID. Giovanni Hernandez MD Jun 04, 2017 14:26
[2017-06-04 15:53] LABS: HCV RNA PCR IU/ML 3290 IU/mL (0-14)
[2017-06-05] VITALS (8 sets, daily range): BP systolic 105–180; BP diastolic 58–77; PULSE 71–110; RESP 17–21; TEMP 98.1–102.6; O2SAT 77–96
[2017-06-05] MEDS: VANCOMYCIN 1,500 MG/NS 500 ML IV SCH ×4 (00:53→17:37)
[2017-06-05] MEDS: HALOPERIDOL LACTATE 5 MG/ML AMP IV PRN (01:29)
[2017-06-05] MEDS: ACETAMINOPHEN 325 MG TAB PO PRN ×2 (04:54→22:21)
[2017-06-05] MEDS: HEPARIN SODIUM - SQ 10,000 UNITS/ML VIAL SQ SCH ×3 (05:03→22:23)
[2017-06-05] MEDS: METOPROLOL TARTRATE 25 MG TAB PO SCH ×3 (05:03→22:21)
--- NOTE | 2017-06-05 06:49 | RADRPT ---
EXAM DATE/TIME: 06/05/2017 06:38 [facility] COMPARISON: CHEST SINGLE AP, June 04, 2017, 11:33. INDICATIONS : Shortness of breath MEDICAL HISTORY : None. SURGICAL HISTORY : None. ENCOUNTER: Subsequent ACUITY: 2 weeks PAIN SCORE: 8/10 LOCATION: Bilateral chest FINDINGS: Single AP view of the chest. Minimal patchy opacity at the left lung base. Lungs otherwise clear. Car diomediastinal silhouette within normal limits. No evidence of pleural effusion or pneumothorax. CONCLUSION: Minimal patchy opacity left lung base likely representing atelectasis. No other acute cardiopulmonary disease identified. Scott Morfin MD on June 05, 2017 at 6:42 Board Certified Radiologist. This report was verified electronically.
[2017-06-05 07:17] LABS: AUTOMATED NEUTROPHIL # 12.1 TH/MM3 (1.8-7.7); BASOPHIL # 0.1 TH/MM3 (0-0.2); BASOPHIL % 0.5 % (0.0-2.0); EOSINOPHIL # 0.2 TH/MM3 (0-0.4); EOSINOPHIL % 1.4 % (0.0-4.0); HEMATOCRIT 29.3 % (39.0-51.0); HEMOGLOBIN 9.9 GM/DL (13.0-17.0); LYMPH % 12.7 % (9.0-44.0); LYMPHOCYTE # 2.1 TH/MM3 (1.0-4.8); MEAN CORPUSCULAR HEMOGLOBIN 31.1 PG (27.0-34.0); MEAN CORPUSCULAR HGB CONC 33.8 % (32.0-36.0); MEAN PLATELET VOLUME 8.5 FL (7.0-11.0); MONO % 13.9 % (0.0-8.0); MONOCYTE # 2.4 TH/MM3 (0-0.9); NEUT % 71.5 % (16.0-70.0); PLATELET COUNT 544 TH/MM3 (150-450); RED BLOOD COUNT 3.18 MIL/MM3 (4.50-5.90); RED CELL DISTRIBUTION WIDTH 13.4 % (11.6-17.2); WHITE BLOOD COUNT 16.9 TH/MM3 (4.0-11.0)
[2017-06-05] MEDS: DILTIAZEM HCL 90 MG TAB PO SCH ×4 (08:14→22:21)
[2017-06-05] MEDS: MULTIVITAMIN TAB PO SCH (08:14)
[2017-06-05] MEDS: ASPIRIN 81 MG CHEW TAB CHEW SCH (08:14)
[2017-06-05] MEDS: PANTOPRAZOLE SOD 20 MG DELAYED RELEASE TAB PO SCH (08:14)
[2017-06-05] MEDS: THIAMINE HCL 100 MG TAB PO SCH (08:14)
[2017-06-05] MEDS: ACETAMINOPHEN/HYDROcodone 325 MG/5 MG TAB PO PRN (08:15)
[2017-06-05] MEDS: INSULIN NovoLIN REGULAR SUPPLEMENTAL SCALE SQ SCH ×4 (08:15→21:00)
[2017-06-05] MEDS: DIGOXIN 0.125 MG TAB PO SCH (08:15)
[2017-06-05] MEDS: FOLIC ACID 1 MG TAB PO SCH (08:15)
[2017-06-05] MEDS: SODIUM CHLORIDE 0.9% FLUSH 10 ML FLUSH IV FLUSH SCH ×2 (08:16→21:00)
[2017-06-05 08:47] LABS: LYMPHOCYTES 6 % (9-44); MONOCYTES 13 % (0-8); NEUTROPHIL # MANUAL DIFF 13.7 TH/MM3 (1.8-7.7); POLYS (SEG NEUTROPHILS) 81 % (16-70)
[2017-06-05] MEDS ORDERED: IOHEXOL 350 MG/ML 10 ML VIAL (for RAD DIAG) IVCONTRAST ONE (09:43)
--- NOTE | 2017-06-05 09:57 | RADRPT ---
EXAM DATE/TIME: 06/05/2017 08:40 [facility] COMPARISON: No previous studies available for comparison. INDICATIONS : Neck pain and stiffness, sepsis; evaluate for abscess. IV CONTRAST: 69 cc Omnipaque 350 (iohexol) IV ; Cumulative dose for multiple exams. RADIATION DOSE: 20.81 CTDIvol (mGy) MEDICAL HISTORY : Methicillin-resistant Staphylococcus aureus. SURGICAL HISTORY : None. ENCOUNTER: Initial ACUITY: 1 week PAIN SCALE: 5/10 LOCATION: Bilateral neck TECHNIQUE: Volumetric scanning of the cervical spine was performed. Multiplanar reconstructions in the sagittal, coronal and oblique axial planes were performed. Using automated exposure control a nd adjustment of the mA and/or kV according to patient size, radiation dose was kept as low as reason ably achievable to obtain optimal diagnostic quality images. DICOM format image data is available el ectronically for review and comparison. FINDINGS: The sagittal reconstructions demonstrate normal vertebral body height and normal prevertebral soft ti ssues. The dens is intact and there is a normal atlantoaxial relationship. There is mild retrolisthes is of C5 on C6 of approximately 3-4 mm with degenerative disc change noted at the C5-6 and C6-7 level s with disc space narrowing and mild hypertrophic change. The axial images demonstrate that the vertebral bodies and posterior elements are intact. The soft ti ssues are within normal limits. There is no evidence of acute fracture. Degenerative changes are note d involving the uncovertebral joints. CONCLUSION: Negative trauma CT. There is mild retrolisthesis of C5 on C6 which appears chron ic. Martin Desouza MD on June 05, 2017 at 9:53 Board Certified Radiologist. This report was verified electronically.
--- NOTE | 2017-06-05 10:50 | RADRPT ---
EXAM DATE/TIME: 06/05/2017 08:45 [facility] COMPARISON: No previous studies available for comparison. INDICATIONS : Back pain, sepsis; evaluate for abscess. IV CONTRAST: 69 cc Omnipaque 350 (iohexol) IV ; Cumulative dose for multiple exams. RADIATION DOSE: 35.53 CTDIvol (mGy) ; Combined studies MEDICAL HISTORY : Methicillin-resistant Staphylococcus aureus. SURGICAL HISTORY : None. ENCOUNTER: Initial ACUITY: 1 week PAIN SCALE: 6/10 LOCATION: thoracic spine. TECHNIQUE: Volumetric scanning of the thoracic spine was performed. Multiplanar reconstructions in the sagittal , coronal and oblique axial planes were performed. Using automated exposure control and adjustment o f the mA and/or kV according to patient size, radiation dose was kept as low as reasonably achievable to obtain optimal diagnostic quality images. DICOM format image data is available electronically fo r review and comparison. FINDINGS: The sagittal and coronal reconstructions demonstrate normal mineralization and alignment. There is mi ld scoliosis. Mild degenerative disc changes are present. The vertebral bodies are intact and in norm al alignment. No destructive changes identified. The axial images demonstrate that the vertebral bodies and posterior elements are intact with no evid ence of fracture. The paraspinous soft tissues appear unremarkable with no evidence of an abscess. Th ere is consolidation noted in the left lower lobe. Visualized portions of the ribs appear intact. CONCLUSION: 1. The thoracic vertebrae are intact with no evidence to suggest osteomyelitis. There is no evidence of an abscess. 2. Mild scoliosis and degenerative change. 3. Consolidation in the left lower lobe. Martin Desouza MD on June 05, 2017 at 10:45 Board Certified Radiologist. This report was verified electronically.
--- NOTE | 2017-06-05 11:24 | HHI.PR ---
Subjective Remarks Follow-up for sepsis, bacteremia, discitis, and acute respiratory failure. Nursing reports that the patient did have some neck stiffness that developed overnight. Patient also did spike a fever. Patient himself denies having any new pain. He says the morphine helps his occasional headaches the best. He denies having any neck pain and claims that he can move his neck around but has obvious limitation on both active and passive range of motion assessment. Objective Vital Signs Date Time Temp Pulse Resp B/P (MAP) Pulse Ox O2 Delivery O2 Flow Rate FiO2 06/05/17 08:23 Room Air 06/05/17 07:45 98.2 71 17 105/58 (74) 93 06/05/17 04:00 101.1 110 20 131/60 (83) 95 06/05/17 00:52 95 Nasal Cannula 2.00 06/05/17 00:51 94 Nasal Cannula 2.00 06/05/17 00:00 98.9 92 18 172/77 (108) 92 06/04/17 20:00 97.7 84 18 152/75 (100) 96 06/04/17 16:00 98.5 82 16 132/67 (88) 97 06/04/17 15:37 97 Room Air 06/04/17 14:00 84 06/04/17 12:00 98.5 78 14 139/66 (90) 98 06/04/17 12:00 78 I/O 06/04/17 06/04/17 06/04/17 06/05/17 06/05/17 06/05/17 07:00 15:00 23:00 07:00 15:00 23:00 Intake Total 500 ml 515 ml Output Total 100 ml 200 ml 1800 ml Balance 400 ml -200 ml 515 ml -1800 ml Intake Oral 500 ml IV Total 515 ml Output Urine Total 100 ml 200 ml 1800 ml Chest Tube Drainage Total 0 ml # Bowel Movements 0 Result Diagram: 06/05/17 0551 06/04/17 0138 Objective Remarks Unable to actively nor passively flex his chin to his neck; able to externally rotate his neck to the left well actively and passively but only has about 45 range of motion on the right side. As 5 out of 5 strength in proximal upper and lower extremities bilaterally Unlabored breathing, clear lungs bilaterally A/P Assessment and Plan Patient is a 66-year-old male with history of anxiety, arthritis, substance abuse who was initially admitted to hospitalist service with altered mentation, and back pain. Found to have UDS positive for cocaine. In the ED patient was anxious and combative. Initially admitted to the medical floor. WBC 14.2 with bandemia, lactic acid 3.4, BUN/abdomen 27/1.49. Patient was given IV fluids, started on Cefepime and vanc but he continued to become more combative restless and altered. Patient was moved to the ICU and I immediately evaluated him. Patient is in four point restraints. Underwent spinal bx for discitis, has confirmed MRSA bacteremia. Afib titrated with cardizem, lopressor , and digoxin. Has possible sepsis again with newly occurring fever and tachycardia and worsening tachycardia - Continue vancomycin, will touch base again with infectious disease before drawing any new cultures New neck stiffness - CT C-spine studies are pending; ? From infection - We'll start PT and OT MRSA Bacteremia and discitis - To receive vancomycin until July. fib - Digoxin, Cardizem and Lopressor Addendum: Discussed with infectious disease, we'll hold off on another lumbar puncture and obtaining blood cultures unless fever becomes more persistent. Has had stiffness could be a manifestation acute dystonia secondary to the Haldol he received - will monitor. Toñito Tejada MD Jun 05, 2017 11:24
[2017-06-05] MEDS ORDERED: MORPHINE SULFATE 2 MG/ML INJ IV PUSH PRN (11:30)
--- NOTE | 2017-06-05 12:07 | RADRPT ---
EXAM DATE/TIME: 06/05/2017 08:45 [facility] COMPARISON: CT ABDOMEN & PELVIS W CONTRAST, May 26, 2017, 10:55. MRI LUMBAR SPINE W & W/O CONTRAST, Norma r 2016, 9:12. DISC ASPIRATION/BIOPSY, May 27, 2017, 12:01. INDICATIONS : Lower back pain, sepsis; evaluate for abscess. IV CONTRAST: 69 cc Omnipaque 350 (iohexol) IV ; Cumulative dose for multiple exams. RADIATION DOSE: 35.53 CTDIvol (mGy) ; Combined studies MEDICAL HISTORY : Methicillin-resistant Staphylococcus aureus. SURGICAL HISTORY : None. ENCOUNTER: Initial ACUITY: 1 week PAIN SCALE: 7/10 LOCATION: Bilateral lower back. TECHNIQUE: Volumetric scanning of the lumbar spine was performed. Multiplanar reconstructions in the sagittal, coronal and oblique axial planes were performed. Using automated exposure control and adjustment of the mA and/or kV according to patient size, radiation dose was kept as low as reasonably achievable t o obtain optimal diagnostic quality images. DICOM format image data is available electronically for review and comparison. FINDINGS: Degenerative disc changes with significant endplate eburnation, subcortical cyst formation along the endplates and significant sclerosis is again identified at the L1-2, L2-3, L3-4 and L4-5 levels. Marginal cortical erosion identified along the endplates at the L2-3 level on the left and along the right anterolateral disc margin are slightly worse compared to the previous study on 05/26/2017. Multiple small low density loculated fluid collections have developed in the psoas muscles especially on the left. Small right-sided psoas collection measuring 1 x 1.3 cm is located at the L3-4 disc int erspace. Multiple collections are present throughout the left psoas muscle with the largest identifie d at the L4-5 level measuring 4 x 1.9 cm in size. Reactive inflammatory tissue is identified surrounding the L2-3 disc space. There is significant epid ural thickening with moderate compression of the thecal sac. CONCLUSION: 1. Slowly progressive erosive/sclerotic endplate changes at the L2-3 level characteristic of progress ing discitis. 2. Interval development of multiple small psoas muscle loculations bilaterally as described character istic of psoas abscesses 3. Significant peridiscal reactive inflammatory changes and epidural fullness at the L2-3 level with suspected compression of the thecal sac. Griffin Gamez MD on June 05, 2017 at 10:26 Board Certified Radiologist. This report was verified electronically.
[2017-06-05 13:44] LABS: BACTERIA, URINE MOD /hpf; BILIRUBIN, URINE NEG (NEG); BLOOD, URINE SMALL (NEG); GLUCOSE,URINE NEG (NEG); HYALINE CAST, URINE 1 /lpf (RARE); KETONE, URINE NEG (NEG); MUCUS URINE FEW /lpf (OCC); NITRITE,URINE NEG (NEG); PH, URINE 7.5 (5.0-8.5); SQUAMOUS EPITHELIAL CELL URINE 5 /hpf (0-5); URINE COLOR YELLOW (YELLW/STRAW); URINE LEUKOCYTE ESTERASE LARGE (NEG)
--- NOTE | 2017-06-05 15:18 | HHI.IDPN ---
Note Infectious Disease Note Patient is very drowsy and confused. Lethargic. Received Haldol. Denies SANTANA. Denies neck or back pain. Fever and increased WBC. Neck appears to be somewhat stiff. Post L2-3 disc space aspirate. Culture MRSA Blood culture has MRSA 05/25, 05/22. Blood culture 05/28 - no growth. Patient admitted to hospital with altered mental status. The patient was evaluated in the emergency department and he was complaining of lower back pain. The patient had positive screen of the urine for cocaine. PAST MEDICAL HISTORY: 1. Arthritis 2. Anxiety. 3. Substance abuse. ALLERGIES NO KNOWN DRUG ALLERGIES. ANTIBIOTICS Vancomycin. OBJECTIVE. Vital Signs Date Time Temp Pulse Resp B/P (MAP) Pulse Ox O2 Delivery O2 Flow Rate FiO2 06/05/17 11:35 98.1 77 18 130/72 (91) 93 06/05/17 08:23 Room Air 06/05/17 07:45 98.2 71 17 105/58 (74) 93 06/05/17 04:00 101.1 110 20 131/60 (83) 95 06/05/17 00:52 95 Nasal Cannula 2.00 06/05/17 00:51 94 Nasal Cannula 2.00 06/05/17 00:00 98.9 92 18 172/77 (108) 92 06/04/17 20:00 97.7 84 18 152/75 (100) 96 06/04/17 16:00 98.5 82 16 132/67 (88) 97 06/04/17 15:37 97 Room Air Laboratory Tests Test 06/04/17 01:38 06/05/17 05:51 White Blood Count 11.1 TH/MM3 16.9 TH/MM3 Red Blood Count 2.89 MIL/MM3 3.18 MIL/MM3 Hemoglobin 9.0 GM/DL 9.9 GM/DL Hematocrit 26.5 % 29.3 % Mean Corpuscular Volume 91.8 FL 92.0 FL Mean Corpuscular Hemoglobin 31.4 PG 31.1 PG Mean Corpuscular Hemoglobin Concent 34.1 % 33.8 % Red Cell Distribution Width 13.3 % 13.4 % Platelet Count 395 TH/MM3 544 TH/MM3 Mean Platelet Volume 8.4 FL 8.5 FL Neutrophils (%) (Auto) 70.5 % 71.5 % Lymphocytes (%) (Auto) 12.2 % 12.7 % Monocytes (%) (Auto) 14.8 % 13.9 % Eosinophils (%) (Auto) 1.8 % 1.4 % Basophils (%) (Auto) 0.7 % 0.5 % Neutrophils # (Auto) 7.8 TH/MM3 12.1 TH/MM3 Lymphocytes # (Auto) 1.4 TH/MM3 2.1 TH/MM3 Monocytes # (Auto) 1.7 TH/MM3 2.4 TH/MM3 Eosinophils # (Auto) 0.2 TH/MM3 0.2 TH/MM3 Basophils # (Auto) 0.1 TH/MM3 0.1 TH/MM3 CBC Comment DIFF FINAL AUTO DIFF Differential Comment FINAL DIFF MANUAL Differential Total Cells Counted 100 Neutrophils % (Manual) 81 % Lymphocytes % 6 % Monocytes % 13 % Neutrophils # (Manual) 13.7 TH/MM3 Platelet Estimate HIGH Platelet Morphology Comment NORMAL Red Cell Morphology Comment NORMAL Laboratory Tests Test 06/04/17 01:38 Blood Urea Nitrogen 17 MG/DL Creatinine 0.85 MG/DL Random Glucose 87 MG/DL Calcium Level 8.9 MG/DL Magnesium Level 1.9 MG/DL Sodium Level 132 MEQ/L Potassium Level 3.6 MEQ/L Chloride Level 97 MEQ/L Carbon Dioxide Level 28.8 MEQ/L Anion Gap 6 MEQ/L Estimat Glomerular Filtration Rate 90 ML/MIN Microbiology Date/Time Source Procedure Growth Status 06/05/17 11:22 Blood Peripheral Aerobic Blood Culture Pending Received 06/05/17 11:22 Blood Peripheral Anaerobic Blood Culture Pending Received 06/05/17 11:15 Blood Peripheral Aerobic Blood Culture Pending Received 06/05/17 11:15 Blood Peripheral Anaerobic Blood Culture Pending Received 06/05/17 13:20 Urine Clean Catch Urine Culture Pending Received IMAGING: Thoracic Spine CT 06/05/17 0000 Signed Impressions: Service Date/Time: Monday, June 05, 2017 08:45 - CONCLUSION: 1. The thoracic vertebrae are intact with no evidence to suggest osteomyelitis. There is no evidence of an abscess. 2. Mild scoliosis and degenerative change. 3. Consolidation in the left lower lobe. Martin Desouza MD Lumbar Spine CT 06/05/17 0000 Signed Impressions: Service Date/Time: Monday, June 05, 2017 08:45 - CONCLUSION: 1. Slowly progressive erosive/sclerotic endplate changes at the L2-3 level characteristic of progressing discitis. 2. Interval development of multiple small psoas muscle loculations bilaterally as described characteristic of psoas abscesses 3. Significant peridiscal reactive inflammatory changes and epidural fullness at the L2-3 level with suspected compression of the thecal sac. Griffin Gamez MD Chest X-Ray 06/05/17 0000 Signed Impressions: Service Date/Time: Monday, June 05, 2017 06:38 - CONCLUSION: Minimal patchy opacity left lung base likely representing atelectasis. No other acute cardiopulmonary disease identified. Scott Morfin MD Cervical Spine CT 06/05/17 0000 Signed Impressions: Service Date/Time: Monday, June 05, 2017 08:40 - CONCLUSION: Negative trauma CT. There is mild retrolisthesis of C5 on C6 which appears chronic. Martin Desouza MD Chest X-Ray 06/04/17 0000 Signed Impressions: Service Date/Time: May 11:33 - CONCLUSION: Interval right thoracostomy tube removal without complication. Giovanni Hernandez MD Chest X-Ray 06/03/17 0600 Signed Impressions: Service Date/Time: Saturday, June 03, 2017 02:53 - CONCLUSION: Mild left lung base atelectasis and/or infiltrate is seen. Liat Hirsch MD Chest X-Ray 06/02/17 1800 Signed Impressions: Service Date/Time: Friday, June 02, 2017 18:04 - CONCLUSION: Left chest out. Tiny left apical pneumothorax. Giovanni Banda MD Chest X-Ray 06/02/17 1600 Signed Impressions: Service Date/Time: Friday, June 02, 2017 16:05 - CONCLUSION: Stable chest appearance Giovanni Hernandez MD IMAGING: Chest X-Ray 06/04/17 0000 Signed Impressions: Service Date/Time: May 11:33 - CONCLUSION: Interval right thoracostomy tube removal without complication. Giovanni Hernandez MD Chest X-Ray 06/03/17 0600 Signed Impressions: Service Date/Time: Saturday, June 03, 2017 02:53 - CONCLUSION: Mild left lung base atelectasis and/or infiltrate is seen. Liat Hirsch MD Chest X-Ray 06/02/17 1800 Signed Impressions: Service Date/Time: Friday, June 02, 2017 18:04 - CONCLUSION: Left chest out. Tiny left apical pneumothorax. Giovanni Banda MD Chest X-Ray 06/02/17 1600 Signed Impressions: Service Date/Time: Friday, June 02, 2017 16:05 - CONCLUSION: Stable chest appearance Giovanni Hernandez MD Chest CT 05/26/17 0000 Signed Impressions: Service Date/Time: Friday, May 26, 2017 10:55 - CONCLUSION: Moderate sized bilateral pleural effusions with small areas of patchy consolidation as well as passive atelectasis. This is a new finding from the prior chest x-ray. Noncardiogenic pulmonary edema versus infectious etiology. Armando Ennis Jr., MD Abdomen/Pelvis CT 05/26/17 0000 Signed Impressions: Service Date/Time: Friday, May 26, 2017 10:55 - CONCLUSION: Definite retroperitoneal inflammation around the abdominal aorta as well as extensive small lymph nodes throughout the retroperitoneum. There is also free fluid in both paracolic gutters right greater than left. I was initially concerning about a possible discitis at L2-3 with some cystic change along the endplates, particularly L2-3. Large bilateral pleural effusion with passive atelectasis. Sean Brown MD Upper Extremity Ultrasound 05/25/17 0000 Signed Impressions: Service Date/Time: Thursday, May 25, 2017 19:27 - CONCLUSION: Nonocclusive thrombus of the cephalic and basilic veins without evidence of proximal propagation. Armando Peterson MD Thoracic Spine MRI 05/24/17 0000 Signed Impressions: Service Date/Time: Wednesday, May 24, 2017 09:12 - CONCLUSION: 1. Minimal disc osteophyte complexes at T7-8, T8-9 and T9-10. 2. No spinal stenosis, focal disc herniation or significant neural foraminal narrowing. 3. No enhancing abscess collection. Abilio Eastman MD Lumbar Spine MRI 05/24/17 0000 Signed Impressions: Service Date/Time: Wednesday, May 24, 2017 09:12 - CONCLUSION: 1. Mild spinal stenosis and mild to moderate bilateral narrowing at L2-3, L3-4 and L4- 5. 2. Mild spinal stenosis and mild bilateral foraminal narrowing at L1-2. 3. Diffuse degenerative disease throughout the lumbar spine. 4. No evidence of enhancing abscess. Abilio Eastman MD Cervical Spine MRI 05/24/17 0000 Signed Impressions: Service Date/Time: Wednesday, May 24, 2017 09:12 - CONCLUSION: 1. Mild bilateral foraminal narrowing at C3-4, C4-5, C5-6 and C6-7. 2. No enhancing abscess. 3. Reversal of the normal cervical lordosis. 4. Diffuse cervical spondylosis from C3-C7. Abilio Eastman MD Brain MRI 05/24/17 0000 Signed Impressions: Service Date/Time: Wednesday, May 24, 2017 09:12 - CONCLUSION: 1. Mild periventricular white matter small vessel ischemic changes are noted bilaterally. 2. No acute infarct, acute hemorrhage, mass effect or extra- axial fluid collections. 3. No abnormal enhancing mass lesion. Abilio Eastman MD PHYSICAL EXAM. GENERAL: No acute distress. Confused. HEENT: The head is atraumatic. EOMI, No icterus. NECK: No swelling. No adenopathy. LUNGS: Clear decreased breath sounds bilaterally. HEART: Nl S1-S2. No audible murmurs or rubs or gallops. ABDOMEN: Bowel sounds present, soft. Non tender. EXTREMITIES: No clubbing or cyanosis or edema. SKIN: No diffuse rash. NEUROLOGIC: Non focal PSYCH: Calm. IMPRESSION 1. Abnormal cerebrospinal fluid suggesting meningitis and very likely bacterial meningitis. CSF culture has no growth. 2. Bacteremia MRSA. Persistently positive blood culture now negative. Vancomycin initially was sub therapeutic. 3. Discitis lumbar spine L 1 -2. due to MRSA. probable source of bacteremia. Extensive small lymph nodes in the abdomen ? etiology. May not be related to infection. 4. Positive toxicology screen for cocaine. 5. Decreased mental status ? meds. Haldol. RECOMMENDATIONS 1. Continue Vancomycin. Aim for 15- 20 vanco trough. 2. Monitor the WBC. 3. Monitor temp. 4. Monitor cultures. Blood and urine. 5. Repeat sed rate. Vancomycin level has been low. I spoke to pharmacy about the vancomycin dosing. In light of discitis we need to aim for IV antibiotic until Jul 20, 2017. He will need arrangement for outpatient and follow up with ID when discharged. Giovanni Hernandez MD Jun 05, 2017 15:18
--- NOTE | 2017-06-05 20:57 | HHI.NSPN ---
History Chief Complaint: Low back pain, slightly better. Interval History Nursing staff states that within approximately 2 hour period time last evening the patient developed significant muscular stiffness, particularly in the neck. He did receive Haldol last evening for agitation. Has been quiet without agitation or combative behavior today. Patient complains of significant neck stiffness with some pain. He has been alert most of the day according to nursing staff was some persistent confusion. Positive temperature to 101.1 early this morning Exam Results Vital Signs Date Time Temp Pulse Resp B/P (MAP) Pulse Ox O2 Delivery O2 Flow Rate FiO2 06/05/17 15:42 98.4 76 18 130/63 (85) 95 06/05/17 08:23 Room Air 06/05/17 00:52 2.00 06/03/17 21:20 21 Intake and Output 06/05/17 06/05/17 06/06/17 08:00 16:00 00:00 Intake Total 515 ml Output Total 1800 ml 300 ml Balance -1285 ml -300 ml Physical Examination GENERAL: Awake & alert, readily interacts, affect essentially normal, no apparent distress. NECK: Neck is turned far to the left. Quite rigid. Complains of significant neck discomfort was slow manual return of neck to the midline. MUSCULOSKELETAL: Moderate neck discomfort. Some stiffness in the upper and lower extremities without significant pain with motion NEUROLOGICAL: He has relatively alert. Speech is clear but soft and somewhat slow. Follows simple commands slowly Sensation is intact to light touch to all extremities. Strength is mostly normal throughout the upper and lower extremities. He is slow to move his right lower extremity Fine motor to hand moderately impaired. Lab, Micro, Other Results Laboratory Tests Test 06/05/17 05:51 06/05/17 13:20 06/05/17 16:46 White Blood Count 16.9 TH/MM3 Red Blood Count 3.18 MIL/MM3 Hemoglobin 9.9 GM/DL Hematocrit 29.3 % Mean Corpuscular Volume 92.0 FL Mean Corpuscular Hemoglobin 31.1 PG Mean Corpuscular Hemoglobin Concent 33.8 % Red Cell Distribution Width 13.4 % Platelet Count 544 TH/MM3 Mean Platelet Volume 8.5 FL Neutrophils (%) (Auto) 71.5 % Lymphocytes (%) (Auto) 12.7 % Monocytes (%) (Auto) 13.9 % Eosinophils (%) (Auto) 1.4 % Basophils (%) (Auto) 0.5 % Neutrophils # (Auto) 12.1 TH/MM3 Lymphocytes # (Auto) 2.1 TH/MM3 Monocytes # (Auto) 2.4 TH/MM3 Eosinophils # (Auto) 0.2 TH/MM3 Basophils # (Auto) 0.1 TH/MM3 CBC Comment AUTO DIFF Differential Total Cells Counted 100 Neutrophils % (Manual) 81 % Lymphocytes % 6 % Monocytes % 13 % Neutrophils # (Manual) 13.7 TH/MM3 Differential Comment FINAL DIFF MANUAL Platelet Estimate HIGH Platelet Morphology Comment NORMAL Red Cell Morphology Comment NORMAL Urine Color YELLOW Urine Turbidity HAZY Urine pH 7.5 Urine Specific [place] 1.032 Urine Protein TRACE mg/dL Urine Glucose (UA) NEG mg/dL Urine Ketones NEG mg/dL Urine Occult Blood SMALL Urine Nitrite NEG Urine Bilirubin NEG Urine Urobilinogen LESS THAN 2.0 MG/DL Urine Leukocyte Esterase LARGE Urine RBC 3 /hpf Urine WBC 16 /hpf Urine Squamous Epithelial Cells 5 /hpf Urine Bacteria MOD /hpf Urine Hyaline Casts 1 /lpf Urine Mucus FEW /lpf Microscopic Urinalysis Comment CULTURE INDICATED Erythrocyte Sedimentation Rate GREATER THAN 140 mm/hr 06/05/17 CT scan cervical, thoracic, lumbar spine images reviewed by the undersigned. Agree with findings as noted below: Thoracic Spine CT 06/05/17 0000 Signed Impressions: Service Date/Time: Monday, June 05, 2017 08:45 - CONCLUSION: 1. The thoracic vertebrae are intact with no evidence to suggest osteomyelitis. There is no evidence of an abscess. 2. Mild scoliosis and degenerative change. 3. Consolidation in the left lower lobe. Martin Desouza MD Lumbar Spine CT 06/05/17 0000 Signed Impressions: Service Date/Time: Monday, June 05, 2017 08:45 - CONCLUSION: 1. Slowly progressive erosive/sclerotic endplate changes at the L2-3 level characteristic of progressing discitis. 2. Interval development of multiple small psoas muscle loculations bilaterally as described characteristic of psoas abscesses 3. Significant peridiscal reactive inflammatory changes and epidural fullness at the L2-3 level with suspected compression of the thecal sac. Griffin Gamez MD Chest X-Ray 06/05/17 0000 Signed Impressions: Service Date/Time: Monday, June 05, 2017 06:38 - CONCLUSION: Minimal patchy opacity left lung base likely representing atelectasis. No other acute cardiopulmonary disease identified. Scott Morfin MD Cervical Spine CT 06/05/17 0000 Signed Impressions: Service Date/Time: Monday, June 05, 2017 08:40 - CONCLUSION: Negative trauma CT. There is mild retrolisthesis of C5 on C6 which appears chronic. Martin Desouza MD Medical Decision Making Impression and Plan Impression: 1. L2-3 discitis. Progressive destruction of the L2-3 disc and vertebral bodies on follow-up CT scan 06/05/17. Possible persistent infection versus evolution of previous destructive changes. 2. Encephalopathy. 3. New onset of increased muscular rigidity, primarily in the neck. Possibly related to persistent sepsis, UTI. Possible secondary to Haldol. Doubt meningitis given his otherwise stable mental status and neurologic exam. Plan: Findings were discussed with the patient Discussed with nursing staff. Hold Haldol unless necessary for severe agitation or combative behavior. Infectious disease notes reviewed. UA C&S pending José Antonio Krause MD Jun 05, 2017 20:56
[2017-06-06] VITALS (10 sets, daily range): BP systolic 106–141; BP diastolic 56–89; PULSE 69–98; RESP 16–20; TEMP 97.3–99; O2SAT 94–98
[2017-06-06] MEDS: METOPROLOL TARTRATE 25 MG TAB PO SCH ×3 (05:10→22:02)
[2017-06-06] MEDS: HEPARIN SODIUM - SQ 10,000 UNITS/ML VIAL SQ SCH ×3 (05:11→22:02)
[2017-06-06] MEDS: INSULIN NovoLIN REGULAR SUPPLEMENTAL SCALE SQ SCH ×4 (07:55→21:00)
[2017-06-06] MEDS: PANTOPRAZOLE SOD 20 MG DELAYED RELEASE TAB PO SCH (08:31)
[2017-06-06] MEDS: MULTIVITAMIN TAB PO SCH (08:31)
[2017-06-06] MEDS: FOLIC ACID 1 MG TAB PO SCH (08:31)
[2017-06-06] MEDS: DILTIAZEM HCL 90 MG TAB PO SCH ×4 (08:31→22:01)
[2017-06-06] MEDS: THIAMINE HCL 100 MG TAB PO SCH (08:31)
[2017-06-06] MEDS: ASPIRIN 81 MG CHEW TAB CHEW SCH (08:31)
[2017-06-06] MEDS: DIGOXIN 0.125 MG TAB PO SCH (08:31)
[2017-06-06] MEDS: SODIUM CHLORIDE 0.9% FLUSH 10 ML FLUSH IV FLUSH SCH ×2 (08:32→21:00)
[2017-06-06] MEDS: ACETAMINOPHEN/HYDROcodone 325 MG/5 MG TAB PO PRN ×3 (08:32→22:02)
[2017-06-06 11:16] LABS: AUTOMATED NEUTROPHIL # 9.7 TH/MM3 (1.8-7.7); BASOPHIL % 0.3 % (0.0-2.0); EOSINOPHIL # 0.3 TH/MM3 (0-0.4); EOSINOPHIL % 2.6 % (0.0-4.0); HEMATOCRIT 28.1 % (39.0-51.0); HEMOGLOBIN 9.5 GM/DL (13.0-17.0); LYMPH % 10.3 % (9.0-44.0); LYMPHOCYTE # 1.3 TH/MM3 (1.0-4.8); MEAN CELL VOLUME 91.1 FL (80.0-100.0); MEAN CORPUSCULAR HEMOGLOBIN 30.8 PG (27.0-34.0); MEAN CORPUSCULAR HGB CONC 33.8 % (32.0-36.0); MEAN PLATELET VOLUME 7.8 FL (7.0-11.0); MONO % 11.5 % (0.0-8.0); MONOCYTE # 1.5 TH/MM3 (0-0.9); NEUT % 75.3 % (16.0-70.0); PLATELET COUNT 447 TH/MM3 (150-450); RED BLOOD COUNT 3.09 MIL/MM3 (4.50-5.90); RED CELL DISTRIBUTION WIDTH 13.2 % (11.6-17.2); WHITE BLOOD COUNT 12.9 TH/MM3 (4.0-11.0)
--- NOTE | 2017-06-06 11:21 | HHI.PR ---
Subjective Remarks Follow-up for sepsis, bacteremia, discitis, and acute respiratory failure. Nursing reports that the patient have another fever overnight with persistent neck stiffness. Yet the patient says he feels okay although nursing states that he is having some confusion and the CLINICAL DATA ABSTRACTOR just told me the patient had a bowel movement in the bed. Nursing related to me that neurosurgery came by and considered performing another lumbar puncture on the patient. Objective Vital Signs Date Time Temp Pulse Resp B/P (MAP) Pulse Ox O2 Delivery O2 Flow Rate FiO2 06/06/17 08:30 97.3 93 20 141/67 (91) 96 06/06/17 07:56 Room Air 06/06/17 03:30 98.2 69 18 118/59 (78) 95 06/06/17 01:29 Room Air 06/06/17 00:00 98.4 79 19 117/56 (76) 94 06/05/17 21:45 102.6 106 21 180/75 (110) 96 06/05/17 15:42 98.4 76 18 130/63 (85) 95 06/05/17 11:35 98.1 77 18 130/72 (91) 93 I/O 06/05/17 06/05/17 06/05/17 06/06/17 06/06/17 06/06/17 07:00 15:00 23:00 07:00 15:00 23:00 Intake Total 515 ml 515 ml 400 ml Output Total 1800 ml 700 ml 500 ml Balance 515 ml -1800 ml -185 ml -100 ml Intake Oral 0 ml 400 ml IV Total 515 ml 515 ml Output Urine Total 1800 ml 700 ml 500 ml # Voids 1 # Bowel Movements 1 0 Result Diagram: 06/06/17 1055 06/04/17 0138 Objective Remarks Lying in bed, Awake, alert, conversive, no facial droop, no slurred speech still patient is Unable to actively nor passively flex his chin to his neck Unlabored breathing, clear lungs bilaterally Is able to slowly move all 4 proximal extremities when prompted A/P Assessment and Plan Patient is a 66-year-old male with history of anxiety, arthritis, substance abuse who was initially admitted to hospitalist service with altered mentation, and back pain. Found to have UDS positive for cocaine. In the ED patient was anxious and combative. Initially admitted to the medical floor. WBC 14.2 with bandemia, lactic acid 3.4, BUN/abdomen 27/1.49. Patient was given IV fluids, started on Cefepime and vanc but he continued to become more combative restless and altered. Patient was moved to the ICU. Had workup involving lumbar LP (negative) and L2-L3 disc aspiration (MRSA discitis). Confirmed to have MRSA bacteremia and discitis. Afib titrated with cardizem, lopressor, and digoxin. Pt transitioned to med-surg floor with initial improvement; however is now spiking fevers again. Afib titrated with cardizem, lopressor, and digoxin. Still having persistent and worsening fevers - still septic with white count elevated - Continue vancomycin; repeat cultures were actually drawn on 06/05 - CT lumbar spine showing new psoas muscle abscess in conjunction with ongoing discitis - Discussed case with radiologist Dr. Pelayo - feels that only the left psoas abscess would be at best only one that could possibly be drained; relayed findings and elevated temp to Dr. Krause who then felt that infectious disease should dictate decision as to whether or not abx should be modified and/or if abscesses should be drained MRSA Bacteremia and discitis - To receive IV vancomycin until July New neck stiffness - CT C-spine studies are pending; ? From infection - PT and OT - minimize Haldol use A. fib - Digoxin, Cardizem and Lopressor heparin Toñito Tejada MD Jun 06, 2017 11:21
[2017-06-06 11:43] LABS: BICARBONATE 28.1 MEQ/L (21.0-32.0); CALCIUM 9.1 MG/DL (8.5-10.1); CREATININE 1.12 MG/DL (0.60-1.30)
[2017-06-06] MEDS ORDERED: PHARMACY ORDERED LAB ONE (11:45)
[2017-06-06] MEDS: VANCOMYCIN 1,500 MG/NS 500 ML IV SCH ×2 (12:17)
--- NOTE | 2017-06-06 14:46 | HHI.IDPN ---
Note Infectious Disease Note ID COVERAGE Patient admitted to hospital with altered mental status. The patient was evaluated in the emergency department and he was complaining of lower back pain. The patient had positive screen of the urine for cocaine. Post L2-3 disc space aspirate. Culture MRSA Blood culture has MRSA 05/25, 05/22. Blood culture 05/28 - no growth. Notes reviewed Patient is up in chair Had fever yesterday, none today UC with PSAE Has condom cath Had some diarrhea CXR with atelectasis Lumbarspine MRI now with psoas abscess PAST MEDICAL HISTORY: 1. Arthritis 2. Anxiety. 3. Substance abuse. ALLERGIES NO KNOWN DRUG ALLERGIES. MEDICATIONS Current Medications Vancomycin Medications (Trade) Dose Ordered Sig/Frandy Route Start Time Stop Time Status Last Admin (NS Flush) 2 ml UNSCH PRN IV FLUSH 05/22/17 06:15 (NS Flush) 2 ml BID IV FLUSH 05/22/17 09:00 06/06/17 08:32 (Zofran Inj) 4 mg Q6H PRN IVP 05/22/17 06:15 06/02/17 06:01 (Tylenol) 650 mg Q6H PRN PO 05/22/17 06:15 06/05/17 22:21 (Milk Of Magnesia Liq) 30 ml Q12H PRN PO 05/22/17 06:15 (Senokot) 17.2 mg Q12H PRN PO 05/22/17 06:15 (Dulcolax Supp) 10 mg DAILY PRN RECTAL 05/22/17 06:15 (Lactulose Liq) 30 ml DAILY PRN PO 05/22/17 06:15 (Romazicon Inj) 0.2 mg Q1M PRN IV PUSH 05/22/17 11:30 Pharmacy Profile Note 0 ml @ 0 mls/hr UNSCH OTHER 05/23/17 07:30 Future hold (Haldol Inj) 5 mg Q4H PRN IV 05/24/17 08:15 06/05/17 01:29 (Apresoline Inj) 20 mg Q6H PRN IV PUSH 05/26/17 13:00 06/02/17 05:53 (D50w (Vial) Inj) 50 ml UNSCH PRN IV PUSH 05/27/17 00:45 06/01/17 12:10 (Glucagon Inj) 1 mg UNSCH PRN OTHER 05/27/17 00:45 (Cardizem) 90 mg QID PO 05/28/17 09:00 06/06/17 12:17 (Morphine Inj) 2 mg Q3H PRN IV PUSH 05/28/17 09:30 06/04/17 00:40 (Trandate Inj) 10 mg Q2H PRN IV 05/28/17 17:45 06/04/17 00:43 (Albuterol Neb) 2.5 mg Q2HR NEB PRN NEB 05/29/17 15:15 06/05/17 00:50 (Protonix) 20 mg DAILY PO 05/30/17 09:00 06/06/17 08:31 (Aspirin Chew) 81 mg DAILY CHEW 05/30/17 09:00 06/06/17 08:31 (Heparin Inj) 5,000 units Q8HR SQ 05/29/17 22:00 06/06/17 14:03 ([place] 5-325 Mg) 1 tab Q4H PRN PO 05/30/17 17:30 06/06/17 12:17 (NovoLIN R SUPPLEMENTAL SCALE) 1 ACHS SQ 06/01/17 12:00 (Vitamin B1) 100 mg DAILY PO 06/02/17 09:00 06/06/17 08:31 (Folate) 1 mg DAILY PO 06/02/17 09:00 06/06/17 08:31 (Theragran) 1 tab DAILY PO 06/02/17 09:00 06/06/17 08:31 (Lopressor) 25 mg Q8HR PO 06/01/17 14:00 06/06/17 14:03 (Lanoxin) 0.125 mg DAILY PO 06/02/17 09:00 06/06/17 08:31 Vancomycin HCl 1500 mg/Sodium Chloride 515 ml @ 257.5 mls/ hr Q18H IV 06/04/17 06:00 06/06/17 12:17 (Morphine Inj) 2 mg Q3H PRN IV PUSH 06/05/17 11:30 OBJECTIVE. Vital Signs Date Time Temp Pulse Resp B/P (MAP) Pulse Ox O2 Delivery O2 Flow Rate FiO2 06/06/17 11:47 98.0 88 20 118/62 (80) 95 06/06/17 08:30 97.3 93 20 141/67 (91) 96 06/06/17 07:56 Room Air 06/06/17 03:30 98.2 69 18 118/59 (78) 95 06/06/17 01:29 Room Air 06/06/17 00:00 98.4 79 19 117/56 (76) 94 06/05/17 21:45 102.6 106 21 180/75 (110) 96 06/05/17 15:42 98.4 76 18 130/63 (85) 95 Vital Signs Date Time Temp Pulse Resp B/P (MAP) Pulse Ox O2 Delivery O2 Flow Rate FiO2 06/05/17 11:35 98.1 77 18 130/72 (91) 93 06/05/17 08:23 Room Air 06/05/17 07:45 98.2 71 17 105/58 (74) 93 06/05/17 04:00 101.1 110 20 131/60 (83) 95 06/05/17 00:52 95 Nasal Cannula 2.00 06/05/17 00:51 94 Nasal Cannula 2.00 06/05/17 00:00 98.9 92 18 172/77 (108) 92 06/04/17 20:00 97.7 84 18 152/75 (100) 96 06/04/17 16:00 98.5 82 16 132/67 (88) 97 06/04/17 15:37 97 Room Air Laboratory Tests Test 06/05/17 05:51 06/05/17 16:46 06/06/17 10:55 White Blood Count 16.9 TH/MM3 12.9 TH/MM3 Red Blood Count 3.18 MIL/MM3 3.09 MIL/MM3 Hemoglobin 9.9 GM/DL 9.5 GM/DL Hematocrit 29.3 % 28.1 % Mean Corpuscular Volume 92.0 FL 91.1 FL Mean Corpuscular Hemoglobin 31.1 PG 30.8 PG Mean Corpuscular Hemoglobin Concent 33.8 % 33.8 % Red Cell Distribution Width 13.4 % 13.2 % Platelet Count 544 TH/MM3 447 TH/MM3 Mean Platelet Volume 8.5 FL 7.8 FL Neutrophils (%) (Auto) 71.5 % 75.3 % Lymphocytes (%) (Auto) 12.7 % 10.3 % Monocytes (%) (Auto) 13.9 % 11.5 % Eosinophils (%) (Auto) 1.4 % 2.6 % Basophils (%) (Auto) 0.5 % 0.3 % Neutrophils # (Auto) 12.1 TH/MM3 9.7 TH/MM3 Lymphocytes # (Auto) 2.1 TH/MM3 1.3 TH/MM3 Monocytes # (Auto) 2.4 TH/MM3 1.5 TH/MM3 Eosinophils # (Auto) 0.2 TH/MM3 0.3 TH/MM3 Basophils # (Auto) 0.1 TH/MM3 0.0 TH/MM3 CBC Comment AUTO DIFF DIFF FINAL Differential Total Cells Counted 100 Neutrophils % (Manual) 81 % Lymphocytes % 6 % Monocytes % 13 % Neutrophils # (Manual) 13.7 TH/MM3 Differential Comment FINAL DIFF MANUAL Platelet Estimate HIGH Platelet Morphology Comment NORMAL Red Cell Morphology Comment NORMAL Erythrocyte Sedimentation Rate GREATER THAN 140 mm/hr Laboratory Tests Test 06/06/17 10:55 Blood Urea Nitrogen 23 MG/DL Creatinine 1.12 MG/DL Random Glucose 104 MG/DL Calcium Level 9.1 MG/DL Sodium Level 137 MEQ/L Potassium Level 3.7 MEQ/L Chloride Level 100 MEQ/L Carbon Dioxide Level 28.1 MEQ/L Anion Gap 9 MEQ/L Estimat Glomerular Filtration Rate 65 ML/MIN Lactic Acid Level 1.3 mmol/L Microbiology Date/Time Source Procedure Growth Status 06/05/17 11:22 Blood Peripheral Aerobic Blood Culture - Preliminary NO GROWTH IN 1 DAY Resulted 06/05/17 11:22 Blood Peripheral Anaerobic Blood Culture - Preliminary NO GROWTH IN 1 DAY Resulted 06/05/17 11:15 Blood Peripheral Aerobic Blood Culture - Preliminary NO GROWTH IN 1 DAY Resulted 06/05/17 11:15 Blood Peripheral Anaerobic Blood Culture - Preliminary NO GROWTH IN 1 DAY Resulted 06/05/17 13:20 Urine Clean Catch Urine Culture - Preliminary Pseudomonas Aeruginosa Resulted IMAGING: Thoracic Spine CT 06/05/17 0000 Signed Impressions: Service Date/Time: Monday, June 05, 2017 08:45 - CONCLUSION: 1. The thoracic vertebrae are intact with no evidence to suggest osteomyelitis. There is no evidence of an abscess. 2. Mild scoliosis and degenerative change. 3. Consolidation in the left lower lobe. Martin Desouza MD Lumbar Spine CT 06/05/17 0000 Signed Impressions: Service Date/Time: Monday, June 05, 2017 08:45 - CONCLUSION: 1. Slowly progressive erosive/sclerotic endplate changes at the L2-3 level characteristic of progressing discitis. 2. Interval development of multiple small psoas muscle loculations bilaterally as described characteristic of psoas abscesses 3. Significant peridiscal reactive inflammatory changes and epidural fullness at the L2-3 level with suspected compression of the thecal sac. Griffin Gamez MD Chest X-Ray 06/05/17 0000 Signed Impressions: Service Date/Time: Monday, June 05, 2017 06:38 - CONCLUSION: Minimal patchy opacity left lung base likely representing atelectasis. No other acute cardiopulmonary disease identified. Scott Morfin MD Cervical Spine CT 06/05/17 0000 Signed Impressions: Service Date/Time: Monday, June 05, 2017 08:40 - CONCLUSION: Negative trauma CT. There is mild retrolisthesis of C5 on C6 which appears chronic. Martin Desouza MD Chest X-Ray 06/04/17 0000 Signed Impressions: Service Date/Time: May 11:33 - CONCLUSION: Interval right thoracostomy tube removal without complication. Giovanni Hernandez MD Chest X-Ray 06/03/17 0600 Signed Impressions: Service Date/Time: Saturday, June 03, 2017 02:53 - CONCLUSION: Mild left lung base atelectasis and/or infiltrate is seen. Liat Hirsch MD Chest X-Ray 06/02/17 1800 Signed Impressions: Service Date/Time: Friday, June 02, 2017 18:04 - CONCLUSION: Left chest out. Tiny left apical pneumothorax. Giovanni Banda MD Chest X-Ray 06/02/17 1600 Signed Impressions: Service Date/Time: Friday, June 02, 2017 16:05 - CONCLUSION: Stable chest appearance Giovanni Hernandez MD IMAGING: Chest X-Ray 06/04/17 0000 Signed Impressions: Service Date/Time: May 11:33 - CONCLUSION: Interval right thoracostomy tube removal without complication. Giovanni Hernandez MD Chest X-Ray 06/03/17 0600 Signed Impressions: Service Date/Time: Saturday, June 03, 2017 02:53 - CONCLUSION: Mild left lung base atelectasis and/or infiltrate is seen. Liat Hirsch MD Chest X-Ray 06/02/17 1800 Signed Impressions: Service Date/Time: Friday, June 02, 2017 18:04 - CONCLUSION: Left chest out. Tiny left apical pneumothorax. Giovanni Banda MD Chest X-Ray 06/02/17 1600 Signed Impressions: Service Date/Time: Friday, June 02, 2017 16:05 - CONCLUSION: Stable chest appearance Giovanni Hernandez MD Chest CT 05/26/17 0000 Signed Impressions: Service Date/Time: Friday, May 26, 2017 10:55 - CONCLUSION: Moderate sized bilateral pleural effusions with small areas of patchy consolidation as well as passive atelectasis. This is a new finding from the prior chest x-ray. Noncardiogenic pulmonary edema versus infectious etiology. Armando Ennis Jr., MD Abdomen/Pelvis CT 05/26/17 0000 Signed Impressions: Service Date/Time: Friday, May 26, 2017 10:55 - CONCLUSION: Definite retroperitoneal inflammation around the abdominal aorta as well as extensive small lymph nodes throughout the retroperitoneum. There is also free fluid in both paracolic gutters right greater than left. I was initially concerning about a possible discitis at L2-3 with some cystic change along the endplates, particularly L2-3. Large bilateral pleural effusion with passive atelectasis. Sean Brown MD Upper Extremity Ultrasound 05/25/17 0000 Signed Impressions: Service Date/Time: Thursday, May 25, 2017 19:27 - CONCLUSION: Nonocclusive thrombus of the cephalic and basilic veins without evidence of proximal propagation. Armando Peterson MD Thoracic Spine MRI 05/24/17 0000 Signed Impressions: Service Date/Time: Wednesday, May 24, 2017 09:12 - CONCLUSION: 1. Minimal disc osteophyte complexes at T7-8, T8-9 and T9-10. 2. No spinal stenosis, focal disc herniation or significant neural foraminal narrowing. 3. No enhancing abscess collection. Abilio Eastman MD Lumbar Spine MRI 05/24/17 0000 Signed Impressions: Service Date/Time: Wednesday, May 24, 2017 09:12 - CONCLUSION: 1. Mild spinal stenosis and mild to moderate bilateral narrowing at L2-3, L3-4 and L4- 5. 2. Mild spinal stenosis and mild bilateral foraminal narrowing at L1-2. 3. Diffuse degenerative disease throughout the lumbar spine. 4. No evidence of enhancing abscess. Abilio Eastman MD Cervical Spine MRI 05/24/17 0000 Signed Impressions: Service Date/Time: Wednesday, May 24, 2017 09:12 - CONCLUSION: 1. Mild bilateral foraminal narrowing at C3-4, C4-5, C5-6 and C6-7. 2. No enhancing abscess. 3. Reversal of the normal cervical lordosis. 4. Diffuse cervical spondylosis from C3-C7. Abilio Eastman MD Brain MRI 05/24/17 0000 Signed Impressions: Service Date/Time: Wednesday, May 24, 2017 09:12 - CONCLUSION: 1. Mild periventricular white matter small vessel ischemic changes are noted bilaterally. 2. No acute infarct, acute hemorrhage, mass effect or extra- axial fluid collections. 3. No abnormal enhancing mass lesion. Abilio Eastman MD PHYSICAL EXAM. GENERAL: No acute distress. Awake and alert HEENT: The head is atraumatic. EOMI, No icterus. No petechia, no injection NECK: No swelling. No adenopathy. LUNGS: Clear decreased breath sounds bilaterally. HEART: Nl S1-S2. No audible murmurs or rubs or gallops. ABDOMEN: Bowel sounds present, soft. Non tender. EXTREMITIES: No clubbing or cyanosis or edema. SKIN: No diffuse rash. NEUROLOGIC: Non focal PSYCH: Calm. IMPRESSION MRSA bacteremia Discitis lumbar spine L 1 -2. due to MRSA. probable source of bacteremia. - showing progression Abnormal cerebrospinal fluid suggesting meningitis, C/S negative, ? parameningeal due to his lumbar discitis Extensive small lymph nodes in the abdomen ? etiology. May not be related to infection. Positive toxicology screen for cocaine. PSAE UTI Fever, prob due to UTI RECOMMENDATIONS Continue Vancomycin. Aim for 15- 20 vanco trough. Add Cefepime to cover PSAE Follow temps Monitor progress Patient had a lot of questions - and I answered all his questions as best as I can Lizbeth Pitt MD Jun 06, 2017 14:46
--- NOTE | 2017-06-06 16:57 | HHI.NSPN ---
History Chief Complaint: Low back pain, slightly better. Interval History Nursing staff states that within approximately 2 hour period time on the evening of 06/04/17 the patient developed significant muscular stiffness, particularly in the neck. He did receive Haldol for agitation. Has been quiet without agitation or combative behavior today. Patient states the pain diminished today compared to 06/05/17 Persistent low back pain. No complaint of pain weakness or numbness in the lower extremities. Occasional low back spasm. Exam Results Vital Signs Date Time Temp Pulse Resp B/P (MAP) Pulse Ox O2 Delivery O2 Flow Rate FiO2 06/06/17 15:58 97.8 80 20 106/62 (77) 96 06/06/17 07:56 Room Air 06/05/17 00:52 2.00 06/03/17 21:20 21 Intake and Output 06/06/17 06/06/17 06/07/17 08:00 16:00 00:00 Intake Total 400 ml 600 ml Output Total 500 ml 725 ml Balance -100 ml -125 ml Physical Examination GENERAL: Sitting up in chair, appears reasonably comfortable NECK: Mild tenderness left cervical paraspinous musculature. Limitation of right cervical rotation with some discomfort in the left side of the neck. No rigidity MUSCULOSKELETAL: No significant spasm or muscle tenderness in the upper and lower extremities NEUROLOGICAL: He has relatively alert. Mild confusion. Somewhat diminished judgment and insight Speech is clear but soft and somewhat slow. Follows simple commands slowly Sensation is intact to light touch to all extremities. Strength is mostly normal throughout the upper and lower extremities. Fine motor to hand moderately impaired. Lab, Micro, Other Results Laboratory Tests Test 06/06/17 10:55 06/06/17 11:55 White Blood Count 12.9 TH/MM3 Red Blood Count 3.09 MIL/MM3 Hemoglobin 9.5 GM/DL Hematocrit 28.1 % Mean Corpuscular Volume 91.1 FL Mean Corpuscular Hemoglobin 30.8 PG Mean Corpuscular Hemoglobin Concent 33.8 % Red Cell Distribution Width 13.2 % Platelet Count 447 TH/MM3 Mean Platelet Volume 7.8 FL Neutrophils (%) (Auto) 75.3 % Lymphocytes (%) (Auto) 10.3 % Monocytes (%) (Auto) 11.5 % Eosinophils (%) (Auto) 2.6 % Basophils (%) (Auto) 0.3 % Neutrophils # (Auto) 9.7 TH/MM3 Lymphocytes # (Auto) 1.3 TH/MM3 Monocytes # (Auto) 1.5 TH/MM3 Eosinophils # (Auto) 0.3 TH/MM3 Basophils # (Auto) 0.0 TH/MM3 CBC Comment DIFF FINAL Differential Comment Blood Urea Nitrogen 23 MG/DL Creatinine 1.12 MG/DL Random Glucose 104 MG/DL Calcium Level 9.1 MG/DL Sodium Level 137 MEQ/L Potassium Level 3.7 MEQ/L Chloride Level 100 MEQ/L Carbon Dioxide Level 28.1 MEQ/L Anion Gap 9 MEQ/L Estimat Glomerular Filtration Rate 65 ML/MIN Lactic Acid Level 1.3 mmol/L Vancomycin Level Trough 18.3 MCG/ML Medical Decision Making Impression and Plan Impression: 1. L2-3 discitis. Progressive destruction of the L2-3 disc and vertebral bodies on follow-up CT scan 06/05/17. Possible persistent infection versus evolution of previous destructive changes. 2. Encephalopathy. 3. Left neck pain and spasm improved compared to 06/05/17. Remained somewhat confused but more alert today. Plan: Findings were discussed with the patient Discussed with medicine service Infectious disease notes reviewed. His neurologic exam in the lower extremities remains stable. Continue close neurologic checks. Plan to repeat MRI of the lumbar spine early this week as long as his clinical status remains stable. At this point no definite indication for surgical intervention. He may require CT-guided aspiration of the left psoas abscess if this continues to progress. No definite epidural abscess on CT scan. José Antonio Krause MD Jun 06, 2017 16:57
[2017-06-06] MEDS ORDERED: SODIUM CHLOR 0.9% 1000 ML INJ 1,000 ML IV ONE (17:00)
[2017-06-06] MEDS: SODIUM CHLOR 0.9% 1000 ML INJ 1,000 ML IV ONE ×2 (17:17→19:52)
[2017-06-06] MEDS: SODIUM CHLOR 0.9% 1000 ML INJ 1,000 ML IV SCH (22:03)
[2017-06-07] VITALS: BP 118/90; PULSE 100; RESP 19; TEMP 98.8; O2SAT 96
[2017-06-07 04:20] VITALS: BP 120/64; PULSE 80; RESP 23; TEMP 97.9; O2SAT 96
[2017-06-07] MEDS: SODIUM CHLOR 0.9% 1000 ML INJ 1,000 ML IV SCH ×2 (04:55→18:00)
[2017-06-07] MEDS: VANCOMYCIN INJ 1,250 MG in SODIUM CHLOR 0.9% 250 ML INJ 250 ML IV SCH ×2 (05:45→23:35)
[2017-06-07] MEDS: METOPROLOL TARTRATE 25 MG TAB PO SCH ×3 (05:45→23:23)
[2017-06-07] MEDS: HEPARIN SODIUM - SQ 10,000 UNITS/ML VIAL SQ SCH ×3 (05:46→23:23)
[2017-06-07 08:17] VITALS: BP 149/74; PULSE 83; RESP 20; TEMP 99.5; O2SAT 97
[2017-06-07] MEDS: INSULIN NovoLIN REGULAR SUPPLEMENTAL SCALE SQ SCH ×5 (08:28→20:21)
[2017-06-07] MEDS: ASPIRIN 81 MG CHEW TAB CHEW SCH (09:35)
[2017-06-07] MEDS: DILTIAZEM HCL 90 MG TAB PO SCH ×4 (09:35→20:22)
[2017-06-07] MEDS: MULTIVITAMIN TAB PO SCH (09:35)
[2017-06-07] MEDS: THIAMINE HCL 100 MG TAB PO SCH (09:35)
[2017-06-07] MEDS: DIGOXIN 0.125 MG TAB PO SCH (09:35)
[2017-06-07] MEDS: FOLIC ACID 1 MG TAB PO SCH (09:35)
[2017-06-07] MEDS: PANTOPRAZOLE SOD 20 MG DELAYED RELEASE TAB PO SCH (09:35)
[2017-06-07] MEDS: SODIUM CHLORIDE 0.9% FLUSH 10 ML FLUSH IV FLUSH SCH ×2 (09:48→20:22)
[2017-06-07 11:55] VITALS: BP 152/78; PULSE 90; RESP 20; TEMP 97.4; O2SAT 95
--- NOTE | 2017-06-07 15:14 | HHI.PR ---
Subjective Remarks Follow-up for sepsis, bacteremia, discitis, and acute respiratory failure. Nursing reports that the patient appears to be somewhat more confused this morning. No other deteriorations overnight. Fever spikes stopped. Patient himself is not oriented this morning. Objective Vital Signs Date Time Temp Pulse Resp B/P (MAP) Pulse Ox O2 Delivery O2 Flow Rate FiO2 06/07/17 11:55 97.4 90 20 152/78 (102) 95 06/07/17 08:17 99.5 83 20 149/74 (99) 97 06/07/17 04:20 97.9 80 23 120/64 (82) 96 06/07/17 00:00 98.8 100 19 118/90 (99) 96 06/06/17 23:45 98.8 88 18 130/73 (92) 94 06/06/17 22:45 98.9 88 16 135/82 (99) 96 06/06/17 21:40 98.4 98 16 122/65 (84) 95 06/06/17 20:35 99.0 89 17 130/89 (103) 98 06/06/17 20:30 Room Air 06/06/17 15:58 97.8 80 20 106/62 (77) 96 I/O 06/06/17 06/06/17 06/06/17 06/07/17 06/07/17 06/07/17 07:00 15:00 23:00 07:00 15:00 23:00 Intake Total 400 ml 600 ml 3250 ml 400 ml Output Total 500 ml 725 ml 800 ml 1200 ml Balance -100 ml -125 ml 2450 ml -800 ml Intake Oral 400 ml 600 ml 800 ml 400 ml IV Total 2450 ml Output Urine Total 500 ml 725 ml 800 ml 1200 ml # Bowel Movements 0 3 0 0 Result Diagram: 06/06/17 1055 06/06/17 1055 Objective Remarks Lying in bed, Awake, alert, conversive, no facial droop, no slurred speech still patient is Unable to actively nor passively flex his chin to his neck - now reports having pain with having his neck manipulated Unlabored breathing, clear lungs bilaterally A/P Assessment and Plan Patient is a 66-year-old male with history of anxiety, arthritis, substance abuse who was initially admitted to hospitalist service with altered mentation, and back pain. Found to have UDS positive for cocaine. In the ED patient was anxious and combative. Initially admitted to the medical floor. WBC 14.2 with bandemia, lactic acid 3.4, BUN/abdomen 27/1.49. Patient was given IV fluids, started on Cefepime and vanc but he continued to become more combative restless and altered. Patient was moved to the ICU. Had workup involving lumbar LP (negative) and L2-L3 disc aspiration (MRSA discitis). Confirmed to have MRSA bacteremia and discitis. Afib titrated with cardizem, lopressor, and digoxin. Pt transitioned to med-surg floor with initial improvement; however is now spiking fevers again. Afib titrated with cardizem, lopressor, and digoxin. No fever recurrence even since cefepime had not been actually added/ administered. - Continue vancomycin; repeat cultures are negative - CT lumbar spine showing new psoas muscle abscess in conjunction with ongoing discitis. PSAE UTI - cefepime per ID MRSA Bacteremia and discitis - IV vancomycin until July neck stiffness - CT C-spine studies are pending; ? From infection. Neurosurgery aware - PT and OT - minimize Haldol use Hep C is + - may 2/2 from possible IV drug use (cocaine in UDS) Confusion - Infectious versus hospital induced delirium - will repeat CMP and ammonia level stacie since Hep C is + A. fib - stable, continue Digoxin, Cardizem and Lopressor heparin Toñito Tejada MD Jun 07, 2017 15:14
[2017-06-07] MEDS: CEFEPIME INJ 1,000 MG in SODIUM CHLORIDE 0.9% INJ 100 ML IV SCH ×2 (16:12→23:00)
[2017-06-07 16:21] VITALS: BP 126/65; PULSE 85; RESP 20; TEMP 97.9; O2SAT 97
[2017-06-07 16:32] LABS: ALBUMIN 1.9 GM/DL (3.4-5.0); AST (GOT) 51 U/L (15-37); BICARBONATE 29.1 MEQ/L (21.0-32.0); BLOOD UREA NITROGEN 19 MG/DL (7-18); CHLORIDE 101 MEQ/L (98-107); GLOMERULAR FILTRATION RATE 60 ML/MIN (>89); GLUCOSE,RANDOM 94 MG/DL (74-106); SODIUM (NA) 136 MEQ/L (136-145)
[2017-06-07 16:33] LABS: ALT (GPT) 26 U/L (12-78)
[2017-06-07 16:35] LABS: ALKALINE PHOSPHATASE 107 U/L (45-117); TOTAL BILIRUBIN ADULT 0.3 MG/DL (0.2-1.0); TOTAL PROTEIN 7.1 GM/DL (6.4-8.2)
[2017-06-07] MEDS: ACETAMINOPHEN/HYDROcodone 325 MG/5 MG TAB PO PRN (20:25)
[2017-06-07 20:30] VITALS: BP 130/57; PULSE 85; RESP 17; TEMP 99.5; O2SAT 97
[2017-06-08] VITALS (7 sets, daily range): BP systolic 112–158; BP diastolic 57–80; PULSE 69–85; RESP 16–18; TEMP 95.1–98.9; O2SAT 95–99
[2017-06-08] MEDS: SODIUM CHLOR 0.9% 1000 ML INJ 1,000 ML IV SCH ×2 (04:45→15:13)
[2017-06-08] MEDS: METOPROLOL TARTRATE 25 MG TAB PO SCH ×3 (05:47→22:15)
[2017-06-08] MEDS: HEPARIN SODIUM - SQ 10,000 UNITS/ML VIAL SQ SCH ×3 (05:48→22:16)
[2017-06-08] MEDS: CEFEPIME INJ 1,000 MG in SODIUM CHLORIDE 0.9% INJ 100 ML IV SCH ×3 (05:48→22:17)
[2017-06-08] MEDS: ACETAMINOPHEN/HYDROcodone 325 MG/5 MG TAB PO PRN ×2 (05:49→10:02)
[2017-06-08 07:50] LABS: AUTOMATED NEUTROPHIL # 4.3 TH/MM3 (1.8-7.7); BASOPHIL % 0.3 % (0.0-2.0); EOSINOPHIL # 0.4 TH/MM3 (0-0.4); EOSINOPHIL % 5.9 % (0.0-4.0); HEMATOCRIT 26.5 % (39.0-51.0); HEMOGLOBIN 9.1 GM/DL (13.0-17.0); LYMPH % 16.3 % (9.0-44.0); LYMPHOCYTE # 1.2 TH/MM3 (1.0-4.8); MEAN CELL VOLUME 91.2 FL (80.0-100.0); MEAN CORPUSCULAR HEMOGLOBIN 31.4 PG (27.0-34.0); MEAN CORPUSCULAR HGB CONC 34.4 % (32.0-36.0); MEAN PLATELET VOLUME 8.1 FL (7.0-11.0); MONO % 17.5 % (0.0-8.0); MONOCYTE # 1.3 TH/MM3 (0-0.9); PLATELET COUNT 348 TH/MM3 (150-450); RED BLOOD COUNT 2.91 MIL/MM3 (4.50-5.90); RED CELL DISTRIBUTION WIDTH 13.5 % (11.6-17.2); WHITE BLOOD COUNT 7.2 TH/MM3 (4.0-11.0)
[2017-06-08] MEDS: INSULIN NovoLIN REGULAR SUPPLEMENTAL SCALE SQ SCH ×4 (08:00→21:00)
[2017-06-08 08:15] LABS: CREATININE 1.02 MG/DL (0.60-1.30)
[2017-06-08] MEDS: PANTOPRAZOLE SOD 20 MG DELAYED RELEASE TAB PO SCH (08:34)
[2017-06-08] MEDS: THIAMINE HCL 100 MG TAB PO SCH (08:34)
[2017-06-08] MEDS: DILTIAZEM HCL 90 MG TAB PO SCH ×4 (08:34→22:15)
[2017-06-08] MEDS: ASPIRIN 81 MG CHEW TAB CHEW SCH (08:34)
[2017-06-08] MEDS: MULTIVITAMIN TAB PO SCH (08:34)
[2017-06-08] MEDS: DIGOXIN 0.125 MG TAB PO SCH (08:35)
[2017-06-08] MEDS: FOLIC ACID 1 MG TAB PO SCH (08:35)
[2017-06-08] MEDS: SODIUM CHLORIDE 0.9% FLUSH 10 ML FLUSH IV FLUSH SCH ×2 (08:35→21:00)
--- NOTE | 2017-06-08 09:01 | HHI.PR ---
Subjective Remarks In the chair. No headache, however reports slow mentation. No fever or chills overnight. No n/v/d/c. Denies chest pain or sob. Objective Vitals Vital Signs Date Time Temp Pulse Resp B/P (MAP) Pulse Ox O2 Delivery O2 Flow Rate FiO2 06/08/17 08:13 97.0 70 18 118/57 (77) 97 06/08/17 05:00 98.9 75 17 145/69 (94) 99 06/08/17 00:40 97.6 69 17 130/63 (85) 99 06/07/17 20:30 99.5 85 17 130/57 (81) 97 06/07/17 16:21 97.9 85 20 126/65 (85) 97 06/07/17 11:55 97.4 90 20 152/78 (102) 95 I/O 06/07/17 06/07/17 06/07/17 06/08/17 06/08/17 06/08/17 06:59 14:59 22:59 06:59 14:59 22:59 Intake Total 400 ml 480 ml 1697.5 ml Output Total 1200 ml 1200 ml 1750 ml Balance -800 ml -720 ml -52.5 ml Intake Oral 400 ml 480 ml 240 ml IV Total 1457.5 ml Output Urine Total 1200 ml 1200 ml 1750 ml # Bowel Movements 0 1 Result Diagram: 06/08/17 0608 06/08/17 0618 Imaging Last Impressions Thoracic Spine CT 06/05/17 0000 Signed Impressions: Service Date/Time: Monday, June 05, 2017 08:45 - CONCLUSION: 1. The thoracic vertebrae are intact with no evidence to suggest osteomyelitis. There is no evidence of an abscess. 2. Mild scoliosis and degenerative change. 3. Consolidation in the left lower lobe. Martin Desouza MD Lumbar Spine CT 06/05/17 0000 Signed Impressions: Service Date/Time: Monday, June 05, 2017 08:45 - CONCLUSION: 1. Slowly progressive erosive/sclerotic endplate changes at the L2-3 level characteristic of progressing discitis. 2. Interval development of multiple small psoas muscle loculations bilaterally as described characteristic of psoas abscesses 3. Significant peridiscal reactive inflammatory changes and epidural fullness at the L2-3 level with suspected compression of the thecal sac. Griffin Gamez MD Chest X-Ray 06/05/17 0000 Signed Impressions: Service Date/Time: Monday, June 05, 2017 06:38 - CONCLUSION: Minimal patchy opacity left lung base likely representing atelectasis. No other acute cardiopulmonary disease identified. Scott Morfin MD Cervical Spine CT 06/05/17 0000 Signed Impressions: Service Date/Time: Monday, June 05, 2017 08:40 - CONCLUSION: Negative trauma CT. There is mild retrolisthesis of C5 on C6 which appears chronic. Martin Desouza MD Head CT 05/28/17 0000 Signed Impressions: Service Date/Time: May 01:16 - CONCLUSION: 1. No intracranial abnormality is seen. 2. Ethmoid and sphenoid sinus disease. Giovanni Gomez MD Needle Biopsy/Aspiration X-Ray 05/27/17 0000 Signed Impressions: Service Date/Time: Saturday, May 27, 2017 12:01 - CONCLUSION: Uncomplicated L2-L3 disc aspiration as above. Armando Ennis Jr., MD Chest CT 05/26/17 0000 Signed Impressions: Service Date/Time: Friday, May 26, 2017 10:55 - CONCLUSION: Moderate sized bilateral pleural effusions with small areas of patchy consolidation as well as passive atelectasis. This is a new finding from the prior chest x-ray. Noncardiogenic pulmonary edema versus infectious etiology. Armando Ennis Jr., MD Abdomen/Pelvis CT 05/26/17 0000 Signed Impressions: Service Date/Time: Friday, May 26, 2017 10:55 - CONCLUSION: Definite retroperitoneal inflammation around the abdominal aorta as well as extensive small lymph nodes throughout the retroperitoneum. There is also free fluid in both paracolic gutters right greater than left. I was initially concerning about a possible discitis at L2-3 with some cystic change along the endplates, particularly L2-3. Large bilateral pleural effusion with passive atelectasis. Sean Brown MD Upper Extremity Ultrasound 05/25/17 0000 Signed Impressions: Service Date/Time: Thursday, May 25, 2017 19:27 - CONCLUSION: Nonocclusive thrombus of the cephalic and basilic veins without evidence of proximal propagation. Armando Peterson MD Thoracic Spine MRI 05/24/17 0000 Signed Impressions: Service Date/Time: Wednesday, May 24, 2017 09:12 - CONCLUSION: 1. Minimal disc osteophyte complexes at T7-8, T8-9 and T9-10. 2. No spinal stenosis, focal disc herniation or significant neural foraminal narrowing. 3. No enhancing abscess collection. Abilio Eastman MD Lumbar Spine MRI 05/24/17 0000 Signed Impressions: Service Date/Time: Wednesday, May 24, 2017 09:12 - CONCLUSION: 1. Mild spinal stenosis and mild to moderate bilateral narrowing at L2-3, L3-4 and L4- 5. 2. Mild spinal stenosis and mild bilateral foraminal narrowing at L1-2. 3. Diffuse degenerative disease throughout the lumbar spine. 4. No evidence of enhancing abscess. Abilio Eastman MD Cervical Spine MRI 05/24/17 0000 Signed Impressions: Service Date/Time: Wednesday, May 24, 2017 09:12 - CONCLUSION: 1. Mild bilateral foraminal narrowing at C3-4, C4-5, C5-6 and C6-7. 2. No enhancing abscess. 3. Reversal of the normal cervical lordosis. 4. Diffuse cervical spondylosis from C3-C7. Abilio Eastman MD Brain MRI 05/24/17 0000 Signed Impressions: Service Date/Time: Wednesday, May 24, 2017 09:12 - CONCLUSION: 1. Mild periventricular white matter small vessel ischemic changes are noted bilaterally. 2. No acute infarct, acute hemorrhage, mass effect or extra- axial fluid collections. 3. No abnormal enhancing mass lesion. Abilio Eastman MD Objective Remarks GENERAL: Lying in bed, Awake, alert, conversive, no facial droop, no slurred speech. SKIN: Warm and dry. HEAD: Atraumatic. Normocephalic. EYES: Pupils equal and round. No scleral icterus. No injection or drainage. ENT: No nasal bleeding or discharge. Mucous membranes pink and moist. NECK: Trachea midline. No JVD. CARDIOVASCULAR: Regular rate and rhythm. RESPIRATORY: No accessory muscle use. Clear to auscultation. Breath sounds equal bilaterally. GASTROINTESTINAL: Abdomen soft, non-tender, nondistended. Hepatic and splenic margins not palpable. MUSCULOSKELETAL: Extremities without clubbing, cyanosis, or edema. No obvious deformities. NEUROLOGICAL: Awake and alert. Patient is unable to actively nor passively flex his chin to his neck due to pain PSYCHIATRIC: Appropriate mood and affect; insight and judgment normal Date of Insertion: May 27, 2017 Line: Central Venous Catheter Side: Left Location: Subclavian A/P Problem List: (1) Sepsis ICD Code: A41.9 - Sepsis, unspecified organism Status: Acute (2) Bandemia ICD Code: D72.825 - Bandemia (3) Toxic metabolic encephalopathy ICD Code: G92 - Toxic encephalopathy (4) Leukocytosis ICD Code: D72.829 - Elevated white blood cell count, unspecified (5) Acidosis, lactic ICD Code: E87.2 - Acidosis (6) Polysubstance abuse ICD Code: F19.10 - Other psychoactive substance abuse, uncomplicated (7) ARF (acute renal failure) ICD Code: N17.9 - Acute kidney failure, unspecified (8) Thrombocytopenia ICD Code: D69.6 - Thrombocytopenia, unspecified (9) Hyponatremia ICD Code: E87.1 - Hypo-osmolality and hyponatremia Assessment and Plan Patient is a 66-year-old male with history of anxiety, arthritis, substance abuse who was initially admitted to hospitalist service with altered mentation, and back pain. Found to have UDS positive for cocaine. In the ED patient was anxious and combative. Initially admitted to the medical floor. WBC 14.2 with bandemia, lactic acid 3.4, BUN/abdomen 27/1.49. Patient was given IV fluids, started on Cefepime and vanc but he continued to become more combative restless and altered. Patient was moved to the ICU. Had workup involving lumbar LP (negative) and L2-L3 disc aspiration (MRSA discitis). Confirmed to have MRSA bacteremia and discitis. Afib titrated with cardizem, lopressor, and digoxin. Pt transitioned to med-surg floor with initial improvement; however is now spiking fevers again. Afib titrated with cardizem, lopressor, and digoxin. PSAE UTI - cefepime per ID MRSA Bacteremia and discitis - IV vancomycin until July Meningitis bacterial CSF consistent with bacterial meningitis, neck stiffness improving - CT C-spine studies are pending; ? From infection. Neurosurgery aware - PT and OT - minimize Haldol use Hep C is + - october 2/2 from possible IV drug use (cocaine in UDS) Encephalopathy acute delirium - Infectious versus hospital induced delirium and meningitis - will repeat CMP and ammonia level stacie since Hep C is + No fever recurrence even since cefepime had not been actually added/ administered. - Continue vancomycin; repeat cultures are negative - CT lumbar spine showing new psoas muscle abscess in conjunction with ongoing discitis. A. fib - stable, continue Digoxin, Cardizem and Lopressor DVT ppx: heparin DVT ppx: SCD DC when improved and cleared by consultants Sumaya Sutherland MD Jun 08, 2017 09:01
--- NOTE | 2017-06-08 12:05 | HHI.IDPN ---
Note Infectious Disease Note Notes reviewed. Patient is very alert and awake. Has back pain. Started on cefepime for UTI. Neck appears to be somewhat stiff. Post L2-3 disc space aspirate. Culture MRSA Blood culture has MRSA 05/25, 05/22. Blood culture 05/28 - no growth. Patient admitted to hospital with altered mental status. The patient was evaluated in the emergency department and he was complaining of lower back pain. The patient had positive screen of the urine for cocaine. PAST MEDICAL HISTORY: 1. Arthritis 2. Anxiety. 3. Substance abuse. ALLERGIES NO KNOWN DRUG ALLERGIES. ANTIBIOTICS Vancomycin. Cefepime. OBJECTIVE. Vital Signs Date Time Temp Pulse Resp B/P (MAP) Pulse Ox O2 Delivery O2 Flow Rate FiO2 06/08/17 08:13 97.0 70 18 118/57 (77) 97 06/08/17 05:00 98.9 75 17 145/69 (94) 99 06/08/17 00:40 97.6 69 17 130/63 (85) 99 06/07/17 20:30 99.5 85 17 130/57 (81) 97 06/07/17 16:21 97.9 85 20 126/65 (85) 97 Laboratory Tests Test 06/08/17 06:08 White Blood Count 7.2 TH/MM3 Red Blood Count 2.91 MIL/MM3 Hemoglobin 9.1 GM/DL Hematocrit 26.5 % Mean Corpuscular Volume 91.2 FL Mean Corpuscular Hemoglobin 31.4 PG Mean Corpuscular Hemoglobin Concent 34.4 % Red Cell Distribution Width 13.5 % Platelet Count 348 TH/MM3 Mean Platelet Volume 8.1 FL Neutrophils (%) (Auto) 60.0 % Lymphocytes (%) (Auto) 16.3 % Monocytes (%) (Auto) 17.5 % Eosinophils (%) (Auto) 5.9 % Basophils (%) (Auto) 0.3 % Neutrophils # (Auto) 4.3 TH/MM3 Lymphocytes # (Auto) 1.2 TH/MM3 Monocytes # (Auto) 1.3 TH/MM3 Eosinophils # (Auto) 0.4 TH/MM3 Basophils # (Auto) 0.0 TH/MM3 CBC Comment DIFF FINAL Differential Comment Laboratory Tests Test 06/07/17 16:00 06/08/17 06:18 Blood Urea Nitrogen 19 MG/DL Creatinine 1.20 MG/DL 1.02 MG/DL Random Glucose 94 MG/DL Total Protein 7.1 GM/DL Albumin 1.9 GM/DL Calcium Level 9.0 MG/DL Alkaline Phosphatase 107 U/L Aspartate Amino Transf (AST/SGOT) 51 U/L Alanine Aminotransferase (ALT/SGPT) 26 U/L Total Bilirubin 0.3 MG/DL Sodium Level 136 MEQ/L Potassium Level 3.9 MEQ/L Chloride Level 101 MEQ/L Carbon Dioxide Level 29.1 MEQ/L Anion Gap 6 MEQ/L Estimat Glomerular Filtration Rate 60 ML/MIN 73 ML/MIN Ammonia 21 MCMOL/L Microbiology Date/Time Source Procedure Growth Status 06/05/17 13:20 Urine Clean Catch Urine Culture - Final Pseudomonas Aeruginosa Complete IMAGING: Thoracic Spine CT 06/05/17 0000 Signed Impressions: Service Date/Time: Monday, June 05, 2017 08:45 - CONCLUSION: 1. The thoracic vertebrae are intact with no evidence to suggest osteomyelitis. There is no evidence of an abscess. 2. Mild scoliosis and degenerative change. 3. Consolidation in the left lower lobe. Martin Desouza MD Lumbar Spine CT 06/05/17 0000 Signed Impressions: Service Date/Time: Monday, June 05, 2017 08:45 - CONCLUSION: 1. Slowly progressive erosive/sclerotic endplate changes at the L2-3 level characteristic of progressing discitis. 2. Interval development of multiple small psoas muscle loculations bilaterally as described characteristic of psoas abscesses 3. Significant peridiscal reactive inflammatory changes and epidural fullness at the L2-3 level with suspected compression of the thecal sac. Griffin Gamez MD Chest X-Ray 06/05/17 0000 Signed Impressions: Service Date/Time: Monday, June 05, 2017 06:38 - CONCLUSION: Minimal patchy opacity left lung base likely representing atelectasis. No other acute cardiopulmonary disease identified. Scott Morfin MD Cervical Spine CT 06/05/17 0000 Signed Impressions: Service Date/Time: Monday, June 05, 2017 08:40 - CONCLUSION: Negative trauma CT. There is mild retrolisthesis of C5 on C6 which appears chronic. Martin Desouza MD Chest X-Ray 06/04/17 0000 Signed Impressions: Service Date/Time: May 11:33 - CONCLUSION: Interval right thoracostomy tube removal without complication. Giovanni Hernandez MD Chest X-Ray 06/03/17 0600 Signed Impressions: Service Date/Time: Saturday, June 03, 2017 02:53 - CONCLUSION: Mild left lung base atelectasis and/or infiltrate is seen. Liat Hirsch MD Chest X-Ray 06/02/17 1800 Signed Impressions: Service Date/Time: Friday, June 02, 2017 18:04 - CONCLUSION: Left chest out. Tiny left apical pneumothorax. Giovanni Banda MD Chest X-Ray 06/02/17 1600 Signed Impressions: Service Date/Time: Friday, June 02, 2017 16:05 - CONCLUSION: Stable chest appearance Giovanni Hernandez MD Chest CT 05/26/17 0000 Signed Impressions: Service Date/Time: Friday, May 26, 2017 10:55 - CONCLUSION: Moderate sized bilateral pleural effusions with small areas of patchy consolidation as well as passive atelectasis. This is a new finding from the prior chest x-ray. Noncardiogenic pulmonary edema versus infectious etiology. Armando Ennis Jr., MD Abdomen/Pelvis CT 05/26/17 0000 Signed Impressions: Service Date/Time: Friday, May 26, 2017 10:55 - CONCLUSION: Definite retroperitoneal inflammation around the abdominal aorta as well as extensive small lymph nodes throughout the retroperitoneum. There is also free fluid in both paracolic gutters right greater than left. I was initially concerning about a possible discitis at L2-3 with some cystic change along the endplates, particularly L2-3. Large bilateral pleural effusion with passive atelectasis. Sean Brown MD Upper Extremity Ultrasound 05/25/17 0000 Signed Impressions: Service Date/Time: Thursday, May 25, 2017 19:27 - CONCLUSION: Nonocclusive thrombus of the cephalic and basilic veins without evidence of proximal propagation. Armando Peterson MD Thoracic Spine MRI 05/24/17 0000 Signed Impressions: Service Date/Time: Wednesday, May 24, 2017 09:12 - CONCLUSION: 1. Minimal disc osteophyte complexes at T7-8, T8-9 and T9-10. 2. No spinal stenosis, focal disc herniation or significant neural foraminal narrowing. 3. No enhancing abscess collection. Abilio Eastman MD Lumbar Spine MRI 05/24/17 0000 Signed Impressions: Service Date/Time: Wednesday, May 24, 2017 09:12 - CONCLUSION: 1. Mild spinal stenosis and mild to moderate bilateral narrowing at L2-3, L3-4 and L4- 5. 2. Mild spinal stenosis and mild bilateral foraminal narrowing at L1-2. 3. Diffuse degenerative disease throughout the lumbar spine. 4. No evidence of enhancing abscess. Abilio Eastman MD Cervical Spine MRI 05/24/17 0000 Signed Impressions: Service Date/Time: Wednesday, May 24, 2017 09:12 - CONCLUSION: 1. Mild bilateral foraminal narrowing at C3-4, C4-5, C5-6 and C6-7. 2. No enhancing abscess. 3. Reversal of the normal cervical lordosis. 4. Diffuse cervical spondylosis from C3-C7. Abilio Eastman MD Brain MRI 05/24/17 0000 Signed Impressions: Service Date/Time: Wednesday, May 24, 2017 09:12 - CONCLUSION: 1. Mild periventricular white matter small vessel ischemic changes are noted bilaterally. 2. No acute infarct, acute hemorrhage, mass effect or extra- axial fluid collections. 3. No abnormal enhancing mass lesion. Abilio Eastman MD PHYSICAL EXAM. GENERAL: No acute distress. HEENT: The head is atraumatic. EOMI, No icterus. NECK: No swelling. No adenopathy. LUNGS: Clear decreased breath sounds. HEART: Nl S1-S2. No audible murmurs or rubs or gallops. ABDOMEN: Bowel sounds present, soft. Non tender. EXTREMITIES: No clubbing or cyanosis or edema. SKIN: No diffuse rash. NEUROLOGIC: Non focal PSYCH: Calm and cooperative. IMPRESSION 1. Abnormal cerebrospinal fluid suggesting meningitis and very likely bacterial meningitis. CSF culture has no growth. 2. Bacteremia MRSA. Persistently positive blood culture now negative. Vancomycin initially was sub therapeutic. 3. Discitis lumbar spine L 1 -2. due to MRSA. probable source of bacteremia. CT shows psoas abscesses, progression of discitis. 4. Positive toxicology screen for cocaine. 5. Decreased mental status ? meds. Haldol. Improved. 6. UTI pseudomonas. RECOMMENDATIONS 1. Continue Vancomycin. Aim for 15- 20 vanco trough. 2. Monitor Sed rate weekly during therapy 3. Monitor temp. Vancomycin level has been low. I spoke to pharmacy about the vancomycin dosing. In light of discitis we need to aim for IV antibiotic until Jul 20, 2017 tentative. He will need arrangement for outpatient and follow up with ID when discharged. Giovanni Hernandez MD Jun 08, 2017 12:05
[2017-06-08] MEDS: VANCOMYCIN INJ 1,250 MG in SODIUM CHLOR 0.9% 250 ML INJ 250 ML IV SCH (16:58)
[2017-06-09] VITALS: BP 136/73; PULSE 76; RESP 18; TEMP 98.5; O2SAT 98
[2017-06-09 04:00] VITALS: BP 137/78; PULSE 96; RESP 18; TEMP 97.5; O2SAT 95
[2017-06-09] MEDS: SODIUM CHLOR 0.9% 1000 ML INJ 1,000 ML IV SCH ×2 (04:45→15:40)
[2017-06-09] MEDS: CEFEPIME INJ 1,000 MG in SODIUM CHLORIDE 0.9% INJ 100 ML IV SCH (06:15)
[2017-06-09] MEDS: METOPROLOL TARTRATE 25 MG TAB PO SCH ×2 (06:15→12:55)
[2017-06-09] MEDS: HEPARIN SODIUM - SQ 10,000 UNITS/ML VIAL SQ SCH ×2 (06:17→12:55)
[2017-06-09] MEDS: INSULIN NovoLIN REGULAR SUPPLEMENTAL SCALE SQ SCH ×3 (07:42→16:25)
[2017-06-09 08:13] VITALS: BP 153/81; PULSE 80; RESP 18; TEMP 99.1; O2SAT 94
[2017-06-09] MEDS: ASPIRIN 81 MG CHEW TAB CHEW SCH (08:37)
[2017-06-09] MEDS: FOLIC ACID 1 MG TAB PO SCH (08:37)
[2017-06-09] MEDS: DILTIAZEM HCL 90 MG TAB PO SCH ×3 (08:37→16:26)
[2017-06-09] MEDS: THIAMINE HCL 100 MG TAB PO SCH (08:38)
[2017-06-09] MEDS: MULTIVITAMIN TAB PO SCH (08:39)
[2017-06-09] MEDS: PANTOPRAZOLE SOD 20 MG DELAYED RELEASE TAB PO SCH (08:40)
[2017-06-09] MEDS: DIGOXIN 0.125 MG TAB PO SCH (08:40)
[2017-06-09] MEDS: SODIUM CHLORIDE 0.9% FLUSH 10 ML FLUSH IV FLUSH SCH (08:40)
[2017-06-09] MEDS ORDERED: PHARMACY ORDERED LAB ONE (11:45)
[2017-06-09] MEDS: ACETAMINOPHEN/HYDROcodone 325 MG/5 MG TAB PO PRN ×2 (11:55→16:26)
[2017-06-09] MEDS ORDERED: DILT90TA PO (12:02)
[2017-06-09] MEDS ORDERED: THERTAB15 PO (12:02)
[2017-06-09] MEDS ORDERED: NORC5TAB PO (12:02)
[2017-06-09] MEDS ORDERED: FOLI1TAB6 PO (12:02)
[2017-06-09] MEDS ORDERED: PANT20 PO (12:02)
[2017-06-09] MEDS ORDERED: DIGO0.12 PO (12:02)
[2017-06-09] MEDS ORDERED: METO25TA3 PO (12:02)
[2017-06-09] MEDS ORDERED: SENN187 PO (12:02)
[2017-06-09] MEDS ORDERED: ASPI81 CHEW (12:02)
[2017-06-09] MEDS ORDERED: THIA100 PO (12:02)
--- NOTE | 2017-06-09 12:03 | HHI.DS ---
Discharge Summary Admission Date May 22, 2017 at 06:18 Discharge Date: Jun 09, 2017 Admitting Diagnosis sepsis, AMS, lower back pain, IV drug abuse (1) Sepsis ICD Code: A41.9 - Sepsis, unspecified organism Status: Acute (2) Bandemia ICD Code: D72.825 - Bandemia Status: Resolved (3) Toxic metabolic encephalopathy ICD Code: G92 - Toxic encephalopathy Status: Acute (4) Leukocytosis ICD Code: D72.829 - Elevated white blood cell count, unspecified Status: Acute (5) Acidosis, lactic ICD Code: E87.2 - Acidosis Status: Resolved (6) Polysubstance abuse ICD Code: F19.10 - Other psychoactive substance abuse, uncomplicated Status: Chronic (7) ARF (acute renal failure) ICD Code: N17.9 - Acute kidney failure, unspecified Status: Resolved (8) Thrombocytopenia ICD Code: D69.6 - Thrombocytopenia, unspecified (9) Hyponatremia ICD Code: E87.1 - Hypo-osmolality and hyponatremia Procedures none Brief History - From Admission 66 years old male with a history of arthritis was brought to the ED initially for complaint of back pain, mentation change of unknown duration, and patient was found to have UDS positive for cocaine. While in the emergency department apparently patient became increasingly anxious and combative and was trying to pull out his IV lines. Initially MRI of the spine was ordered to rule out epidural abscess, however this hasn't been completed secondary to patient's altered mental status change. Patient was then transported on the floor and admitted to medicine team. Patient continue to be restless and attempted to pull out his IV lines despite soft upper restraints in place. Although patient was alert, and oriented to self but not place and date, he was requested that he will be left alone and discharge out of this place. Abnormal labs included WBC 14.2 with bandemia, initial lactic acid 3.4, BUN/abdomen 27/ 1.49 and a UDS positive for cocaine. Head CT with no acute intracranial abnormality findings and a chest x-ray unremarkable. Unable to obtain an accurate review of organ systems as patient denies ANYTHING CBC/BMP: 06/08/17 0608 06/08/17 0618 Significant Findings Laboratory Tests Test 06/07/17 16:00 06/08/17 06:08 06/08/17 06:18 Blood Urea Nitrogen 19 MG/DL (7-18) Albumin 1.9 GM/DL (3.4-5.0) Aspartate Amino Transf (AST/SGOT) 51 U/L (15-37) Estimat Glomerular Filtration Rate 60 ML/MIN (>89) 73 ML/MIN (>89) Red Blood Count 2.91 MIL/MM3 (4.50-5.90) Hemoglobin 9.1 GM/DL (13.0-17.0) Hematocrit 26.5 % (39.0-51.0) Monocytes (%) (Auto) 17.5 % (0.0-8.0) Eosinophils (%) (Auto) 5.9 % (0.0-4.0) Monocytes # (Auto) 1.3 TH/MM3 (0-0.9) Imaging Last Impressions Chest X-Ray 06/09/17 0000 Signed Impressions: Service Date/Time: Friday, June 09, 2017 16:15 - CONCLUSION: Uncomplicated PICC line placement. Baljit Rojo MD Thoracic Spine CT 06/05/17 0000 Signed Impressions: Service Date/Time: Monday, June 05, 2017 08:45 - CONCLUSION: 1. The thoracic vertebrae are intact with no evidence to suggest osteomyelitis. There is no evidence of an abscess. 2. Mild scoliosis and degenerative change. 3. Consolidation in the left lower lobe. Martin Desouza MD Lumbar Spine CT 06/05/17 0000 Signed Impressions: Service Date/Time: Monday, June 05, 2017 08:45 - CONCLUSION: 1. Slowly progressive erosive/sclerotic endplate changes at the L2-3 level characteristic of progressing discitis. 2. Interval development of multiple small psoas muscle loculations bilaterally as described characteristic of psoas abscesses 3. Significant peridiscal reactive inflammatory changes and epidural fullness at the L2-3 level with suspected compression of the thecal sac. Griffin Gamez MD Cervical Spine CT 06/05/17 0000 Signed Impressions: Service Date/Time: Monday, June 05, 2017 08:40 - CONCLUSION: Negative trauma CT. There is mild retrolisthesis of C5 on C6 which appears chronic. Martin Desouza MD Head CT 05/28/17 0000 Signed Impressions: Service Date/Time: May 01:16 - CONCLUSION: 1. No intracranial abnormality is seen. 2. Ethmoid and sphenoid sinus disease. Giovanni Gomez MD Needle Biopsy/Aspiration X-Ray 05/27/17 0000 Signed Impressions: Service Date/Time: Saturday, May 27, 2017 12:01 - CONCLUSION: Uncomplicated L2-L3 disc aspiration as above. Armando Ennis Jr., MD Chest CT 05/26/17 0000 Signed Impressions: Service Date/Time: Friday, May 26, 2017 10:55 - CONCLUSION: Moderate sized bilateral pleural effusions with small areas of patchy consolidation as well as passive atelectasis. This is a new finding from the prior chest x-ray. Noncardiogenic pulmonary edema versus infectious etiology. Armando Ennis Jr., MD Abdomen/Pelvis CT 05/26/17 0000 Signed Impressions: Service Date/Time: Friday, May 26, 2017 10:55 - CONCLUSION: Definite retroperitoneal inflammation around the abdominal aorta as well as extensive small lymph nodes throughout the retroperitoneum. There is also free fluid in both paracolic gutters right greater than left. I was initially concerning about a possible discitis at L2-3 with some cystic change along the endplates, particularly L2-3. Large bilateral pleural effusion with passive atelectasis. Sean Brown MD Upper Extremity Ultrasound 05/25/17 0000 Signed Impressions: Service Date/Time: Thursday, May 25, 2017 19:27 - CONCLUSION: Nonocclusive thrombus of the cephalic and basilic veins without evidence of proximal propagation. Armando Peterson MD Thoracic Spine MRI 05/24/17 0000 Signed Impressions: Service Date/Time: Wednesday, May 24, 2017 09:12 - CONCLUSION: 1. Minimal disc osteophyte complexes at T7-8, T8-9 and T9-10. 2. No spinal stenosis, focal disc herniation or significant neural foraminal narrowing. 3. No enhancing abscess collection. Abilio Eastman MD Lumbar Spine MRI 05/24/17 0000 Signed Impressions: Service Date/Time: Wednesday, May 24, 2017 09:12 - CONCLUSION: 1. Mild spinal stenosis and mild to moderate bilateral narrowing at L2-3, L3-4 and L4- 5. 2. Mild spinal stenosis and mild bilateral foraminal narrowing at L1-2. 3. Diffuse degenerative disease throughout the lumbar spine. 4. No evidence of enhancing abscess. Abilio Eastman MD Cervical Spine MRI 05/24/17 0000 Signed Impressions: Service Date/Time: Wednesday, May 24, 2017 09:12 - CONCLUSION: 1. Mild bilateral foraminal narrowing at C3-4, C4-5, C5-6 and C6-7. 2. No enhancing abscess. 3. Reversal of the normal cervical lordosis. 4. Diffuse cervical spondylosis from C3-C7. Abilio Eastman MD Brain MRI 05/24/17 0000 Signed Impressions: Service Date/Time: Wednesday, May 24, 2017 09:12 - CONCLUSION: 1. Mild periventricular white matter small vessel ischemic changes are noted bilaterally. 2. No acute infarct, acute hemorrhage, mass effect or extra- axial fluid collections. 3. No abnormal enhancing mass lesion. Abilio Eastman MD PE at Discharge GENERAL: Lying in bed, Awake, alert, conversive, no facial droop, no slurred speech. SKIN: Warm and dry. HEAD: Atraumatic. Normocephalic. EYES: Pupils equal and round. No scleral icterus. No injection or drainage. ENT: No nasal bleeding or discharge. Mucous membranes pink and moist. NECK: Trachea midline. No JVD. CARDIOVASCULAR: Regular rate and rhythm. RESPIRATORY: No accessory muscle use. Clear to auscultation. Breath sounds equal bilaterally. GASTROINTESTINAL: Abdomen soft, non-tender, nondistended. Hepatic and splenic margins not palpable. MUSCULOSKELETAL: Extremities without clubbing, cyanosis, or edema. No obvious deformities. NEUROLOGICAL: Awake and alert. Patient is unable to actively nor passively flex his chin to his neck due to pain PSYCHIATRIC: Appropriate mood and affect; insight and judgment normal Hospital Course Patient is a 66-year-old male with history of anxiety, arthritis, substance abuse who was initially admitted to hospitalist service with altered mentation, and back pain. Found to have UDS positive for cocaine. In the ED patient was anxious and combative. Initially admitted to the medical floor. WBC 14.2 with bandemia, lactic acid 3.4, BUN/abdomen 27/1.49. Patient was given IV fluids, started on Cefepime and vanc but he continued to become more combative restless and altered. Patient was moved to the ICU. Had workup involving lumbar LP (negative) and L2-L3 disc aspiration (MRSA discitis). Confirmed to have MRSA bacteremia and discitis. Afib titrated with cardizem, lopressor, and digoxin. Pt transitioned to med-surg floor with initial improvement; however is now spiking fevers again. Afib titrated with cardizem, lopressor, and digoxin. PSAE UTI - cefepime per ID finished course of abx MRSA Bacteremia and discitis - IV vancomycin until July Meningitis bacterial CSF consistent with bacterial meningitis, neck stiffness improving - CT C-spine studies are pending; ? From infection. Neurosurgery aware - PT and OT - minimize Haldol use Hep C is + - october 2/2 from possible IV drug use (cocaine in UDS) Encephalopathy acute delirium - Infectious versus hospital induced delirium and meningitis - will repeat CMP and ammonia level stacie since Hep C is + No fever recurrence even since cefepime had not been actually added/ administered. - Continue vancomycin; repeat cultures are negative - CT lumbar spine showing new psoas muscle abscess in conjunction with ongoing discitis. A. fib - stable, continue Digoxin, Cardizem and Lopressor DVT ppx: heparin DVT ppx: SCD DC to [facility] inpatient rehabilitation. Plan to discharge to rehabilitation discussed with neurosurgeon, infectious disease and family Laury his daughter also updated per patient request. Antibiotics at discharge: vancomycin 1200 every 18 hours stop date 07/26/17. Per Dr. Krause patient can be discharged to rehabilitation, to have MRI as outpatient ordered by him. Patient to follow-up as outpatient in 1 week. Also patient to follow-up follow-up with infectious disease as outpatient, PCP and other consultants. Antibiotic at DC; Vancomycin 1250mg IV Q18 hours. Stop Treatment: Jul 26, 2017 PICC Line placed 06/09/17 Weekly Labs: SED Rate, Vancomycin Trough, BMP Q 3 days while on vancomycin. Call with creatinine > 2.0 or vancomycin level > 20.[address] Hernandez. [phone] Hernandez [phone]. Pt Condition on Discharge: Stable Discharge Disposition: Rehab Inpatient Discharge Time: > 30 minutes Discharge Instructions DIET: Follow Instructions for: Heart Healthy Diet Activities you can perform: Regular-No Restrictions Follow up Referrals: Infectious Disease - 1 Week Neurosurgery - 1 Week with José Antonio Krause MD PCP Follow-up - 2-3 Days New Medications: Hydrocodone-Acetaminophen ([place]) 5 Mg-325 Mg Tab 1 TAB PO Q4H PRN for PAIN, #20 TAB 0 Refills Vancomycin Inj (Vancomycin Inj) 1 Gram Inj 1200 MG IV Q18 hrs for Infection for 46 Days, BAG 0 Refills stop date 07/26/17 Aspirin (Tgt Aspirin) 81 Mg Chw 81 MG CHEW DAILY for Blood Clot Prevention, #30 EA Digoxin (Digoxin) 0.125 Mg Tab 0.125 MG PO DAILY for arrhythmia , #30 TAB Diltiazem (Diltiazem) 90 Mg Tab 90 MG PO QID for arrhythmia , #90 TAB Folic Acid (Folic Acid) 1 Mg Tablet 1 MG PO DAILY for mvt, #30 MG Metoprolol Tartrate (Metoprolol Tartrate) 25 Mg Tab 25 MG PO Q8HR for Blood Pressure Management, #90 TAB Multivitamin with Folic Acid (Thera Tablet) 400 Mcg Tablet 1 TAB PO DAILY for Nutritional Supplement, #30 MG Pantoprazole (Protonix) 20 Mg Tab 20 MG PO DAILY for Dyspepsia, #30 TAB Sennosides (Senna-Lax) 8.6 Mg Tab 17.2 MG PO Q12H PRN for CONSTIPATION, #30 TAB Thiamine HCl (Gnp Vitamin B-1) 100 Mg Tab 100 MG PO DAILY for mvt, #30 TAB Continued Medications: Alprazolam (Xanax) 0.5 Mg Tab 0.5 MG PO Q4H PRN for ANXIETY, TAB 0 Refills Citalopram (Citalopram) 20 Mg Tab 20 MG PO DAILY for Control Depression, #30 TAB 0 Refills Methocarbamol (Robaxin) 500 Mg Tab 500 MG PO TID for Muscle Spasm for 3 Days, TAB 0 Refills Discontinued Medications: Cephalexin (Keflex) 500 Mg Capsule 500 MG PO Q6H for Infection for 7 Days, #28 CAP 0 Refills Cephalexin (Keflex) 500 Mg Cap 500 MG PO Q8H for Infection for 7 Days, #21 CAP 0 Refills Ibuprofen (Ibuprofen) 600 Mg Tab 600 MG PO Q8HR PRN for PAIN, #15 TAB 0 Refills Ibuprofen (Ibuprofen) 600 Mg Tab 600 MG PO TID for Arthritis Pain for 5 Days, TAB 0 Refills Methylprednisolone Dosepak (Medrol Dosepak) 4 Mg Dspk 4 MG PO DIRECTED, #1 DSPK 0 Refills Per Pharmacist direction Sumaya Sutherland MD Jun 09, 2017 12:03
[2017-06-09 12:14] VITALS: BP 115/69; PULSE 85; RESP 18; TEMP 97.5; O2SAT 98
[2017-06-09] MEDS: VANCOMYCIN INJ 1,250 MG in SODIUM CHLOR 0.9% 250 ML INJ 250 ML IV SCH (12:55)
--- NOTE | 2017-06-09 13:50 | HHI.IDPN ---
Note Infectious Disease Note Patient is very drowsy and sleepy. No pain. Denies SANTANA. Afebrile. Post L2-3 disc space aspirate. Culture MRSA Blood culture has MRSA 05/25, 05/22. Blood culture 05/28 - no growth. Patient admitted to hospital with altered mental status. The patient was evaluated in the emergency department and he was complaining of lower back pain. The patient had positive screen of the urine for cocaine. PAST MEDICAL HISTORY: 1. Arthritis 2. Anxiety. 3. Substance abuse. ALLERGIES NO KNOWN DRUG ALLERGIES. ANTIBIOTICS Vancomycin. Cefepime. OBJECTIVE. Vital Signs Date Time Temp Pulse Resp B/P (MAP) Pulse Ox O2 Delivery O2 Flow Rate FiO2 06/09/17 12:14 97.5 85 18 115/69 (84) 98 06/09/17 08:13 99.1 80 18 153/81 (105) 94 06/09/17 04:00 97.5 96 18 137/78 (97) 95 06/09/17 00:00 98.5 76 18 136/73 (94) 98 06/08/17 20:00 98.9 85 18 158/80 (106) 95 06/08/17 17:49 99 21 06/08/17 16:25 96.9 79 16 146/73 (97) 99 Laboratory Tests Test 06/08/17 06:08 White Blood Count 7.2 TH/MM3 Red Blood Count 2.91 MIL/MM3 Hemoglobin 9.1 GM/DL Hematocrit 26.5 % Mean Corpuscular Volume 91.2 FL Mean Corpuscular Hemoglobin 31.4 PG Mean Corpuscular Hemoglobin Concent 34.4 % Red Cell Distribution Width 13.5 % Platelet Count 348 TH/MM3 Mean Platelet Volume 8.1 FL Neutrophils (%) (Auto) 60.0 % Lymphocytes (%) (Auto) 16.3 % Monocytes (%) (Auto) 17.5 % Eosinophils (%) (Auto) 5.9 % Basophils (%) (Auto) 0.3 % Neutrophils # (Auto) 4.3 TH/MM3 Lymphocytes # (Auto) 1.2 TH/MM3 Monocytes # (Auto) 1.3 TH/MM3 Eosinophils # (Auto) 0.4 TH/MM3 Basophils # (Auto) 0.0 TH/MM3 CBC Comment DIFF FINAL Differential Comment Laboratory Tests Test 06/07/17 16:00 06/08/17 06:18 Blood Urea Nitrogen 19 MG/DL Creatinine 1.20 MG/DL 1.02 MG/DL Random Glucose 94 MG/DL Total Protein 7.1 GM/DL Albumin 1.9 GM/DL Calcium Level 9.0 MG/DL Alkaline Phosphatase 107 U/L Aspartate Amino Transf (AST/SGOT) 51 U/L Alanine Aminotransferase (ALT/SGPT) 26 U/L Total Bilirubin 0.3 MG/DL Sodium Level 136 MEQ/L Potassium Level 3.9 MEQ/L Chloride Level 101 MEQ/L Carbon Dioxide Level 29.1 MEQ/L Anion Gap 6 MEQ/L Estimat Glomerular Filtration Rate 60 ML/MIN 73 ML/MIN Ammonia 21 MCMOL/L Microbiology Date/Time Source Procedure Growth Status 06/05/17 13:20 Urine Clean Catch Urine Culture - Final Pseudomonas Aeruginosa Complete IMAGING: Thoracic Spine CT 06/05/17 0000 Signed Impressions: Service Date/Time: Monday, June 05, 2017 08:45 - CONCLUSION: 1. The thoracic vertebrae are intact with no evidence to suggest osteomyelitis. There is no evidence of an abscess. 2. Mild scoliosis and degenerative change. 3. Consolidation in the left lower lobe. Martin Desouza MD Lumbar Spine CT 06/05/17 0000 Signed Impressions: Service Date/Time: Monday, June 05, 2017 08:45 - CONCLUSION: 1. Slowly progressive erosive/sclerotic endplate changes at the L2-3 level characteristic of progressing discitis. 2. Interval development of multiple small psoas muscle loculations bilaterally as described characteristic of psoas abscesses 3. Significant peridiscal reactive inflammatory changes and epidural fullness at the L2-3 level with suspected compression of the thecal sac. Griffin Gamez MD Chest X-Ray 06/05/17 0000 Signed Impressions: Service Date/Time: Monday, June 05, 2017 06:38 - CONCLUSION: Minimal patchy opacity left lung base likely representing atelectasis. No other acute cardiopulmonary disease identified. Scott Morfin MD Cervical Spine CT 06/05/17 0000 Signed Impressions: Service Date/Time: Monday, June 05, 2017 08:40 - CONCLUSION: Negative trauma CT. There is mild retrolisthesis of C5 on C6 which appears chronic. Martin Desouza MD Chest X-Ray 06/04/17 0000 Signed Impressions: Service Date/Time: May 11:33 - CONCLUSION: Interval right thoracostomy tube removal without complication. Giovanni Hernandez MD Chest X-Ray 06/03/17 0600 Signed Impressions: Service Date/Time: Saturday, June 03, 2017 02:53 - CONCLUSION: Mild left lung base atelectasis and/or infiltrate is seen. Liat Hirsch MD Chest X-Ray 06/02/17 1800 Signed Impressions: Service Date/Time: Friday, June 02, 2017 18:04 - CONCLUSION: Left chest out. Tiny left apical pneumothorax. Giovanni Banda MD Chest X-Ray 06/02/17 1600 Signed Impressions: Service Date/Time: Friday, June 02, 2017 16:05 - CONCLUSION: Stable chest appearance Giovanni Hernandez MD Chest CT 05/26/17 0000 Signed Impressions: Service Date/Time: Friday, May 26, 2017 10:55 - CONCLUSION: Moderate sized bilateral pleural effusions with small areas of patchy consolidation as well as passive atelectasis. This is a new finding from the prior chest x-ray. Noncardiogenic pulmonary edema versus infectious etiology. Armando Ennis Jr., MD Abdomen/Pelvis CT 05/26/17 0000 Signed Impressions: Service Date/Time: Friday, May 26, 2017 10:55 - CONCLUSION: Definite retroperitoneal inflammation around the abdominal aorta as well as extensive small lymph nodes throughout the retroperitoneum. There is also free fluid in both paracolic gutters right greater than left. I was initially concerning about a possible discitis at L2-3 with some cystic change along the endplates, particularly L2-3. Large bilateral pleural effusion with passive atelectasis. Sean Brown MD Upper Extremity Ultrasound 05/25/17 0000 Signed Impressions: Service Date/Time: Thursday, May 25, 2017 19:27 - CONCLUSION: Nonocclusive thrombus of the cephalic and basilic veins without evidence of proximal propagation. Armando Peterson MD Thoracic Spine MRI 05/24/17 0000 Signed Impressions: Service Date/Time: Wednesday, May 24, 2017 09:12 - CONCLUSION: 1. Minimal disc osteophyte complexes at T7-8, T8-9 and T9-10. 2. No spinal stenosis, focal disc herniation or significant neural foraminal narrowing. 3. No enhancing abscess collection. Abilio Eastman MD Lumbar Spine MRI 05/24/17 0000 Signed Impressions: Service Date/Time: Wednesday, May 24, 2017 09:12 - CONCLUSION: 1. Mild spinal stenosis and mild to moderate bilateral narrowing at L2-3, L3-4 and L4- 5. 2. Mild spinal stenosis and mild bilateral foraminal narrowing at L1-2. 3. Diffuse degenerative disease throughout the lumbar spine. 4. No evidence of enhancing abscess. Abilio Eastman MD Cervical Spine MRI 05/24/17 0000 Signed Impressions: Service Date/Time: Wednesday, May 24, 2017 09:12 - CONCLUSION: 1. Mild bilateral foraminal narrowing at C3-4, C4-5, C5-6 and C6-7. 2. No enhancing abscess. 3. Reversal of the normal cervical lordosis. 4. Diffuse cervical spondylosis from C3-C7. Abilio Eastman MD Brain MRI 05/24/17 0000 Signed Impressions: Service Date/Time: Wednesday, May 24, 2017 09:12 - CONCLUSION: 1. Mild periventricular white matter small vessel ischemic changes are noted bilaterally. 2. No acute infarct, acute hemorrhage, mass effect or extra- axial fluid collections. 3. No abnormal enhancing mass lesion. Abilio Eastman MD PHYSICAL EXAM. GENERAL: No acute distress. Somnolent. HEENT: The head is atraumatic. EOMI, No icterus. NECK: No swelling. No adenopathy. LUNGS: Clear breath sounds. HEART: Nl S1-S2. No audible murmurs or rubs or gallops. ABDOMEN: Bowel sounds present, soft. EXTREMITIES: No clubbing or cyanosis or edema. SKIN: No diffuse rash. NEUROLOGIC: Non focal PSYCH: Calm. IMPRESSION 1. Abnormal cerebrospinal fluid suggesting meningitis and very likely bacterial meningitis. CSF culture has no growth. 2. Bacteremia MRSA. Persistently positive blood culture now negative. Vancomycin initially was sub therapeutic. 3. Discitis lumbar spine L 1 -2. due to MRSA. probable source of bacteremia. CT shows psoas abscesses, progression of discitis. 4. Positive toxicology screen for cocaine. 5. Decreased mental status fluctuating. 6. UTI pseudomonas. RECOMMENDATIONS 1. Continue Vancomycin. Aim for 15- 20 vanco trough. 2. Monitor Sed rate weekly during therapy 3. Monitor temp. 4. In light of discitis we need to aim for IV Vancomycin until Jul 20, 2017. 5. Change Cefepime to Levaquin x 3 more days. He will need arrangement for outpatient follow up with ID when discharged. Additional 10 mins spent filling out antibiotic forms. Giovanni Hernandez MD Jun 09, 2017 13:49
--- NOTE | 2017-06-09 13:56 | HHI.FF ---
Infusion Therapy Location of Infusion Therapy: [facility] Infusion Therapy Order Patient Information Patient Weight 75 kg Diagnosis: (1) Diskitis Coded Allergies: No Known Allergies (Unverified Allergy, Unknown, 05/22/17) Administer Medication Vancomycin 1250mg IV Q18 hours Stop Treatment: Jul 26, 2017 Additional Information Venous access: PICC Line Additional Instructions [x] Peripheral flush and dressing changes per protocol [x] Implanted port and central lineman a class: * Implanted port: 10 ml Normal Saline followed by 5 ml Heparin 100 units/ml Heparin flush after each use and monthly to maintain. [] May leave port accessed during therapy. [] May leave peripheral site accessed for duration of therapy. [x] If patient has SOB or respiratory distress, check oxygen saturation. If less than 90% or clinical signs of respiratory distress, administer oxygen at 2 L/min. via nasal cannula and notify physician. [x] Anaphylaxis/Reaction orders: * Stop infusion. * Keep IV line open with saline flush. * Notify physician. * Monitor vital signs every 15 minutes until symptoms resolve. * Check Oxygen saturation; Oxygen at 2 L/min. via nasal cannula if less than 90% or clinical signs of respiratory distress. * Administer diphenhydramine (Benadryl) 25 mg IV STAT, (unless patient has received as pre-med). May repeat once, if necessary. * Solu-Cortef 250 mg IVP over 30-60 seconds, use 100 mg vials for each dissolution. * Epinephrine (1mg/1 ml) 0.3 mg subcutaneously or IVP now with any signs of respiratory distress. * Check with physician for new additional pre-med orders if patient is re- challenged or re-treated. [x] May remove PICC line when treatment complete, after confirming with Physician. [x] If the patient is admitted to the hospital, the ED, or transferred via [facility] , complete transfer form including medication reconciliation order sheet. Laboratory Tests Weekly Labs: SED Rate, Vancomycin Trough Additional Information BMP Q 3 days while on vancomycin. Call with creatinine > 2.0 or vancomycin level > 20.[address] Hernandez. Fax labs to Dr. Hernandez [phone]. Schedule follow up with Dr Kiki Snyder upon discharge. Giovanni Hernandez MD Jun 09, 2017 13:55
[2017-06-09] MEDS ORDERED: LEVOFLOXACIN 500 MG TAB PO SCH (14:00)
[2017-06-09] MEDS ORDERED: SODIUM CHLORIDE 0.9% FLUSH 10 ML FLUSH IV FLUSH PRN (15:30)
--- NOTE | 2017-06-09 16:41 | RADRPT ---
EXAM DATE/TIME: 06/09/2017 16:15 [facility] COMPARISON: CHEST SINGLE AP, June 05, 2017, 6:38. INDICATIONS : PICC line placement MEDICAL HISTORY : MRSA SURGICAL HISTORY : None. ENCOUNTER: Subsequent ACUITY: 1 day PAIN SCORE: Non-responsive. LOCATION: Right chest FINDINGS: The cardiac silhouette is normal in transverse diameter. There is left lower lobe atelectasis versus pneumonia. A PICC line is in place via right-sided approach with its tip in the region of the right b rachiocephalic vein. No pleural effusions are identified. CONCLUSION: Uncomplicated PICC line placement. Baljit oRjo MD on June 09, 2017 at 16:38 Board Certified Radiologist. This report was verified electronically.
--- NOTE | 2017-06-09 17:25 | HHI.PR ---
Subjective Remarks The patient was seen earlier today. She feels sleepy. No fever or chills overnight. Says he would like to do more physical therapy. Back Pain is fairly controlled by medications. No nausea or vomiting no diarrhea or constipation. Denies chest pain or shortness of breath. One do more physical therapy. Plan to discharge to rehabilitation discussed with neurosurgeon, infectious disease and family also updated. Objective Vitals Vital Signs Date Time Temp Pulse Resp B/P (MAP) Pulse Ox O2 Delivery O2 Flow Rate FiO2 06/09/17 12:14 97.5 85 18 115/69 (84) 98 06/09/17 08:13 99.1 80 18 153/81 (105) 94 06/09/17 04:00 97.5 96 18 137/78 (97) 95 06/09/17 00:00 98.5 76 18 136/73 (94) 98 06/08/17 20:00 98.9 85 18 158/80 (106) 95 06/08/17 17:49 99 21 I/O 06/08/17 06/08/17 06/08/17 06/09/17 06/09/17 06/09/17 07:00 15:00 23:00 07:00 15:00 23:00 Intake Total 1697.5 ml 340 ml 710.5 ml 652 ml 502.5 ml Output Total 1750 ml 750 ml 1100 ml 750 ml 1000 ml Balance -52.5 ml -410 ml -389.5 ml -98 ml -497.5 ml Intake Oral 240 ml 240 ml 240 ml IV Total 1457.5 ml 100 ml 710.5 ml 652 ml 262.5 ml Output Urine Total 1750 ml 750 ml 1100 ml 750 ml 1000 ml # Bowel Movements 1 0 1 1 Result Diagram: 06/08/17 0608 06/08/17 0618 Objective Remarks GENERAL: Lying in bed, Awake, alert, conversive, no facial droop, no slurred speech. SKIN: Warm and dry. HEAD: Atraumatic. Normocephalic. EYES: Pupils equal and round. No scleral icterus. No injection or drainage. ENT: No nasal bleeding or discharge. Mucous membranes pink and moist. NECK: Trachea midline. No JVD. CARDIOVASCULAR: Regular rate and rhythm. RESPIRATORY: No accessory muscle use. Clear to auscultation. Breath sounds equal bilaterally. GASTROINTESTINAL: Abdomen soft, non-tender, nondistended. Hepatic and splenic margins not palpable. MUSCULOSKELETAL: Extremities without clubbing, cyanosis, or edema. No obvious deformities. NEUROLOGICAL: Awake and alert. Patient is unable to actively nor passively flex his chin to his neck due to pain PSYCHIATRIC: Appropriate mood and affect; insight and judgment normal Date of Insertion: May 27, 2017 Line: Central Venous Catheter Side: Left Location: Subclavian A/P Problem List: (1) Sepsis ICD Code: A41.9 - Sepsis, unspecified organism Status: Acute (2) Bandemia ICD Code: D72.825 - Bandemia (3) Toxic metabolic encephalopathy ICD Code: G92 - Toxic encephalopathy (4) Leukocytosis ICD Code: D72.829 - Elevated white blood cell count, unspecified (5) Acidosis, lactic ICD Code: E87.2 - Acidosis (6) Polysubstance abuse ICD Code: F19.10 - Other psychoactive substance abuse, uncomplicated (7) ARF (acute renal failure) ICD Code: N17.9 - Acute kidney failure, unspecified (8) Thrombocytopenia ICD Code: D69.6 - Thrombocytopenia, unspecified (9) Hyponatremia ICD Code: E87.1 - Hypo-osmolality and hyponatremia Assessment and Plan Patient is a 66-year-old male with history of anxiety, arthritis, substance abuse who was initially admitted to hospitalist service with altered mentation, and back pain. Found to have UDS positive for cocaine. In the ED patient was anxious and combative. Initially admitted to the medical floor. WBC 14.2 with bandemia, lactic acid 3.4, BUN/abdomen 27/1.49. Patient was given IV fluids, started on Cefepime and vanc but he continued to become more combative restless and altered. Patient was moved to the ICU. Had workup involving lumbar LP (negative) and L2-L3 disc aspiration (MRSA discitis). Confirmed to have MRSA bacteremia and discitis. Afib titrated with cardizem, lopressor, and digoxin. Pt transitioned to med-surg floor with initial improvement; however is now spiking fevers again. Afib titrated with cardizem, lopressor, and digoxin. PSAE UTI - cefepime per ID finished course of abx MRSA Bacteremia and discitis - IV vancomycin until July Meningitis bacterial CSF consistent with bacterial meningitis, neck stiffness improving - CT C-spine studies are pending; ? From infection. Neurosurgery aware - PT and OT - minimize Haldol use Hep C is + - may 2/2 from possible IV drug use (cocaine in UDS) Encephalopathy acute delirium - Infectious versus hospital induced delirium and meningitis - will repeat CMP and ammonia level stacie since Hep C is + No fever recurrence even since cefepime had not been actually added/ administered. - Continue vancomycin; repeat cultures are negative - CT lumbar spine showing new psoas muscle abscess in conjunction with ongoing discitis. A. fib - stable, continue Digoxin, Cardizem and Lopressor DVT ppx: heparin DVT ppx: SCD DC to [place] inpatient rehabilitation. Plan to discharge to rehabilitation discussed with neurosurgeon, infectious disease and family Laury his daughter also updated per patient request. Antibiotics at discharge: vancomycin 1200 every 18 hours stop date 07/26/17. Per Dr. Krause patient can be discharged to rehabilitation, to have MRI as outpatient ordered by him. Patient to follow-up as outpatient in 1 week. Also patient to follow-up follow-up with infectious disease as outpatient, PCP and other consultants. Sumaya Sutherland MD Jun 09, 2017 17:25
[2017-06-09] MEDS ORDERED: VANC1000P IV (17:30)
[2017-06-10] MEDS ORDERED: SODIUM CHLORIDE 0.9% FLUSH 10 ML FLUSH IV FLUSH SCH (09:00)
== END 2017-06-09 17:54 | DRG 871 ==
LOC: NEPD 04:09 → NEDA 06:18 → N07A 07:53 → N03A 11:49 → N05B 06-04 15:30
PROVIDERS: ADMIT Hospitalist; ATTEND Hospitalist
PROC: 009U3ZX Drainage of Spinal Canal, Percutaneous Approach, Diagnostic (ICD-10-PCS; 2017-05-23)
PROC: B246ZZ4 Ultrasonography of Right and Left Heart, Transesophageal (ICD-10-PCS; 2017-05-25)
PROC: 5A1945Z Respiratory Ventilation, 24-96 Consecutive Hours (ICD-10-PCS; 2017-05-26)
PROC: 0BH17EZ Insertion of Endotracheal Airway into Trachea, Via Natural or Artificial Opening (ICD-10-PCS; 2017-05-26)
PROC: 0SB23ZX Excision of Lumbar Vertebral Disc, Percutaneous Approach, Diagnostic (ICD-10-PCS; principal; 2017-05-27)
PROC: 0W9B30Z Drainage of Left Pleural Cavity with Drainage Device, Percutaneous Approach (ICD-10-PCS; 2017-05-27)
PROC: 0W9930Z Drainage of Right Pleural Cavity with Drainage Device, Percutaneous Approach (ICD-10-PCS; 2017-05-27)
PROC: 05H633Z Insertion of Infusion Device into Left Subclavian Vein, Percutaneous Approach (ICD-10-PCS; 2017-05-27)
PROC: 04HY32Z Insertion of Monitoring Device into Lower Artery, Percutaneous Approach (ICD-10-PCS; 2017-05-30)
PROC: 4A133B1 Monitoring of Arterial Pressure, Peripheral, Percutaneous Approach (ICD-10-PCS; 2017-05-30)
PROC: 4A133J1 Monitoring of Arterial Pulse, Peripheral, Percutaneous Approach (ICD-10-PCS; 2017-05-30)
DX: A41.02 Sepsis due to Methicillin resistant Staphylococcus aureus (principal); J96.00 Acute respiratory failure, unspecified whether with hypoxia or hypercapnia; G00.9 Bacterial meningitis, unspecified; N17.9 Acute kidney failure, unspecified; J90 Pleural effusion, not elsewhere classified; G92 Toxic encephalopathy; E87.2 Acidosis; K68.12 Psoas muscle abscess; M62.82 Rhabdomyolysis; E87.1 Hypo-osmolality and hyponatremia; F10.239 Alcohol dependence with withdrawal, unspecified; F19.239 Other psychoactive substance dependence with withdrawal, unspecified; N39.0 Urinary tract infection, site not specified; M46.46 Discitis, unspecified, lumbar region; R65.20 Severe sepsis without septic shock; D69.6 Thrombocytopenia, unspecified; Z78.1 Physical restraint status; M19.90 Unspecified osteoarthritis, unspecified site; F14.90 Cocaine use, unspecified, uncomplicated; F41.9 Anxiety disorder, unspecified; E16.2 Hypoglycemia, unspecified; E88.09 Other disorders of plasma-protein metabolism, not elsewhere classified; R00.0 Tachycardia, unspecified; I48.91 Unspecified atrial fibrillation; B19.20 Unspecified viral hepatitis C without hepatic coma; B96.5 Pseudomonas (aeruginosa) (mallei) (pseudomallei) as the cause of diseases classified elsewhere; R19.7 Diarrhea, unspecified; M62.830 Muscle spasm of back
CPT/HCPCS: 31500; 32551; 36556; 36569; 36600; 62267; 70450; 70553; 71010; 71045; 71260; 72126; 72129; 72132; 72156; 72157; 72158; 74177; 76937; 77003; 80048; 80053; 80074; 80162; 80202; 80307; 81001; 82140; 82150; 82550; 82552; 82565; 82805; 82945; 82948; 83605; 83615; 83735; 83986; 84100; 84132; 84157; 84484; 85007; 85025; 85027; 85610; 85652; 85730; 86140; 86403; 87015; 87040; 87070; 87077; 87086; 87102; 87116; 87147; 87176; 87186; 87205; 87206; 87493; 87498; 87522; 87529; 87536; 87902; 88108; 88112; 88305; 89051; 93005; 93306; 93312; 93320; 93325; 93971; 94002; 94003; 94150; 94640; 94664; 96361; 96374; 96375; A9579; J0290; J0360; J0692; J0696; J0878; J1160; J1630; J1644; J1650; J1940; J2250; J2270; J2405; J2543; J2997; J3010; J3370; J3411; J3475; J3480; J7030; J7040; J7042; J7050; J7613; Q9967

== ENCOUNTER 2017-06-16 10:03 | Inpatient (IN) | payer MEDICARE ==
[~2017-06-16] VITALS: Ht 182.9 cm; Wt 61.9 kg
[~2017-06-16 10:03] MED LIST changes: -ALPR.5 PO; +ASPI81 CHEW; -CEPH-460 PO; +DIGO0.12 PO; +DILT90TA PO; +FOLI1TAB6 PO; -IBUP-232 PO; -MEDR4PAK PO; +METO25TA3 PO; +NORC5TAB PO; +PANT20 PO; +THERTAB15 PO; +THIA100 PO; +VANC1000P IV
[2017-06-16] MEDS ORDERED: CELE20TA PO (11:18)
[2017-06-16] MEDS ORDERED: THIA100 PO (11:18)
[2017-06-16] MEDS ORDERED: METH500T3 PO (11:18)
[2017-06-16] MEDS ORDERED: ACET325T15 PO (11:18)
[2017-06-16] MEDS ORDERED: PANT20 PO (11:18)
[2017-06-16] MEDS ORDERED: DILT90TA PO (11:18)
[2017-06-16] MEDS ORDERED: THERTAB15 PO (11:18)
[2017-06-16] MEDS ORDERED: Petrolat-Zinc Barrier Oint TOPICAL (11:18)
[2017-06-16] MEDS ORDERED: METO25TA3 PO (11:18)
[2017-06-16] MEDS ORDERED: LIDO1ADH4 T-DERMAL (11:18)
[2017-06-16] MEDS ORDERED: FERR325T20 PO (11:18)
[2017-06-16] MEDS ORDERED: Albuterol-Ipratropium Neb NEB (11:18)
[2017-06-16] MEDS ORDERED: DIGO0.12 PO (11:18)
[2017-06-16] MEDS ORDERED: FOLI1TAB6 PO (11:18)
[2017-06-16 14:15] VITALS: BP 138/73; PULSE 64; RESP 18; O2SAT 98
[2017-06-16 14:45] VITALS: BP 122/47; PULSE 65; RESP 18; O2SAT 97
[2017-06-16 15:15] VITALS: BP 138/74; PULSE 62; RESP 20; O2SAT 97
[2017-06-16 16:15] VITALS: BP 138/71; PULSE 66; RESP 16; O2SAT 97
--- NOTE | 2017-06-16 18:28 | HHI.PR ---
Subjective Remarks Patient is a 66-year-old male with primary medical history of arthritis, anxiety , hep C, EtOH, history of IVDA came into the hospital initially for complaints of back pain with altered mental status. Patient was diagnosed with septic encephalopathy with white cell count of 14.2, lactic acid 3.4, bandemia. Patient required ICU admission secondary to intubation and sedation due to agitation and combativeness related to withdrawals. Patient also found to have an A. fib with RVR was treated with Cardizem and IV metoprolol. CT showed L2 to L3 discitis, blood cultures were positive for MRSA. Status post LP culture negative, status post CT-guided needle biopsy on May 27 the L2 to L3 disc space aspirate grew MRSA. He was followed by infectious disease DrFeliz Hernandez started him on IV vancomycin (stop date July 20, 2017. Vanco trough goal is 15-20), patient was also treated with IV cefepime and ampicillin. He was also found to have a left psoas abscess and was being followed by Dr. Krause, neurosurgery. He went to [place] for comprehensive rehabilitation. MRI of the lumbar spine showed 1. In comparison with prior study there is significant worsening of the marrow edema no involvement from L1 to L4 with small epidural abscess L2 to L3. 2. There is no enhancement as well as nerve root enhancement characteristic of infectious radiculitis. 3. Multilocular left psoas abscess. As per recommendation of neurosurgery patient need CT-guided abscess drainage. Plan is to transfer to inpatient for closer monitoring. Seen this AM in rehab. Follow-up visit L2 to L3 discitis, meningitis, MRSA bacteremia, A. fib with RVR. Patient seen and examined today sitting in chair. TLSO brace in place. States he is going to do the procedure today possibly at noontime. Discussed with patient nothing by mouth as recommended by neurosurgery. Denies fevers, chills, nausea, vomiting, diarrhea. Denies any chest pain, headaches, dizziness, palpitations, shortness of breath or dyspnea. Objective Vitals Vital Signs Date Time Temp Pulse Resp B/P (MAP) Pulse Ox O2 Delivery O2 Flow Rate FiO2 06/16/17 16:15 66 16 138/71 (93) 97 06/16/17 15:15 62 20 138/74 (95) 97 06/16/17 14:45 65 18 122/47 (72) 97 06/16/17 14:15 64 18 138/73 (24) 98 Objective Remarks GENERAL: This is a well-nourished, well-developed patient, in no apparent distress. SKIN: Warm and dry HEENT: Normocephalic. Pupils equal round and reactive. Nose without bleeding. Airway patent. NECK: Trachea midline. No JVD. Supple. CARDIOVASCULAR: Regular rate and rhythm without murmurs, gallops, or rubs. RESPIRATORY: Clear to auscultation. Breath sounds equal bilaterally. No wheezes , rales, or rhonchi. GASTROINTESTINAL: Abdomen soft, non-tender, nondistended. Bowel Sounds normoactive x4. MUSCULOSKELETAL: Extremities without clubbing, cyanosis, or edema. TLSO brace in place NEUROLOGICAL: Awake and alert. Oriented to place, person. Moves all extremities. Normal speech. A/P Problem List: (1) Major neurocognitive disorder due to another medical condition ICD Code: F02.80 - Dementia in other diseases classified elsewhere without behavioral disturbance (2) Toxic metabolic encephalopathy ICD Code: G92 - Toxic encephalopathy Status: Acute (3) Decubitus ulcer of buttock, stage 2 ICD Code: L89.302 - Pressure ulcer of unspecified buttock, stage 2 Status: Acute (4) MRSA bacteremia ICD Code: R78.81 - Bacteremia Status: Acute (5) Depression ICD Code: F32.9 - Major depressive disorder, single episode, unspecified Status: Chronic (6) Stage II pressure ulcer of buttock ICD Code: L89.302 - Pressure ulcer of unspecified buttock, stage 2 Status: Acute (7) Polysubstance abuse ICD Code: F19.10 - Other psychoactive substance abuse, uncomplicated Status: Chronic (8) Septic discitis of lumbar region ICD Code: M46.46 - Discitis, unspecified, lumbar region Status: Acute (9) Psoas abscess, left ICD Code: K68.12 - Psoas muscle abscess Status: Acute Assessment and Plan Patient is a 66-year-old recently hospitalized and treated for L2-L3 discitis, meningitis, MRSA bacteremia, A. fib with RVR, and respiratory failure. Patient has been admitted to [place] rehab and medical team consulted for ongoing medical management. Mobility secondary to discitis/prolonged hospitalization - Rehabilitation by primary team L3-L3 discitis with MRSA bacteremia Bacterial meningitis - Patient with a history of IV heroin use prior to hospitalization - Echo negative for vegetation - MRSA L2-L3 discitis positive on biopsy - Bacterial meningitis proven by CSF studies. CSF cultures are negative since patient was treated on antibiotics 24 hours prior to CSF studies. - Severe encephalopathy secondary to drug withdrawal/meningitis. Improving although has some trouble with memory impairment. - Continue recommendations from ID. Continue IV vancomycin aim for 15-20 trough, monitor said rate weekly during therapy, temps, will need IV Vanco until 07/20/17 - Continue Levaquin with end date 06/14/17 - Continue neuro checks - Patient continues to be afebrile, WBC count stable. - Lidoderm patch ordered by primary team, when necessary [place]. - MRI of the lumbar spine showed 1. In comparison with a prior study there is a significant worsening of the marrow edema and no involvement from L1 to L4 with small epidural abscess L2 to L3. 2. There is dural enhancement as well as nerve root enhancement characteristic of infectious radiculitis. 3. Multilocular left psoas abscess. Neurosurgery is following patient. Recommend CT drainage of the abscess. This has been discussed with patient. Continues to have pain on his lumbar area. - TLSO brace when out of bed to chair recommended by neurosurgery. - Plan for CT drainage of the abscess today. NPO. Discuss with Dr. raza and Dr. Saxena patient will be transferred out to the inpatient unit as per recommendation of MD. patient will need closer monitoring post CT drainage. Plan for transfer to inpatient. A. fib with RVR - Continue metoprolol 25 mg Q8hrs, diltiazem 90 mg 4 times a day, and digoxin 0.125mg daily - No full anticoagulation as A. fib is most likely due to drug withdrawal. - Continue ASA - Monitor trend. Controlled rate. Anemia/ANA - Hemoglobin 9.9, hematocrit 26.4 - Iron studies with iron 21, TIBC 175, percent saturation 12.0 - Continue iron supplements. Alcohol/Xanax withdrawal - Patient also with history of IV heroin use, toxicology positive for cocaine on admission - Respiratory failure due to withdrawal intubated from 05/26-05/29 - No acute withdrawal symptoms noted. Hepatitis C - Patient will need outpatient treatment once discharged DVT prophylaxis SCD, restart heparin subcutaneous post procedure Chin Dumont Jun 16, 2017 18:28
[2017-06-16] MEDS ORDERED: Vancomycin Consult Pharmacy 1 EA OTHER SCH (18:45)
[2017-06-16 20:00] VITALS: BP 134/77; PULSE 79; RESP 16; TEMP 96.3; O2SAT 98
[2017-06-16] MEDS: PETROLATUM 49%/ZINC OXIDE 15% 4 OUNCE TUBE TOPICAL SCH (21:00)
[2017-06-16] MEDS ORDERED: VANCOMYCIN INJ 1,250 MG in SODIUM CHLOR 0.9% 250 ML INJ 250 ML IV SCH (22:00)
[2017-06-16] MEDS: METOPROLOL TARTRATE 25 MG TAB PO SCH (22:25)
[2017-06-16] MEDS: DILTIAZEM HCL 90 MG TAB PO SCH (22:25)
[2017-06-16] MEDS: METHOCARBAMOL 500 MG TAB PO PRN (22:25)
[2017-06-17] VITALS: BP 131/69; PULSE 73; RESP 16; TEMP 97.2; O2SAT 96
[2017-06-17] MEDS: METHOCARBAMOL 500 MG TAB PO PRN (04:26)
[2017-06-17] MEDS: METOPROLOL TARTRATE 25 MG TAB PO SCH ×3 (06:23→21:47)
[2017-06-17 08:00] VITALS: BP 147/80; PULSE 69; RESP 19; TEMP 98.2; O2SAT 98
--- NOTE | 2017-06-17 08:53 | RADRPT ---
EXAM DATE/TIME: 06/16/2017 13:16 [facility] COMPARISON: No previous studies available for comparison. INDICATIONS : Paraspinal abscess. SEDATION TIME: 30 minutes MEDICATION(S): 1.) 3 mg midazolam (Versed) IV 2.) 150 mcg fentanyl (Sublimaze) IV DEVICE(S): 1.) 8 Austrian locking skater pigtail FLUID: Total volume of 3 cc of cloudy, yellow fluid was removed. Fluid was sent for laboratory ordered studies. MEDICAL HISTORY : Hypertension. SURGICAL HISTORY : None. ENCOUNTER: Initial ACUITY: 1 day PAIN SCORE: 6/10 LOCATION: lower back PROCEDURE: 1.) Conscious sedation with continuous EKG and oximetry monitoring. 2.) EKG and oximetry remained stable throughout the procedure. PROCEDURE : 1. CT guided drainage of the left iliopsoas abscess 2. Conscious sedation with continuous EKG and oximetry monitoring. The risks, benefits and alternatives to the procedure were explained and verbal and written consent w as obtained. Using automated exposure control and adjustment of the mA and/or kV according to patient size, radiation dose was kept as low as reasonably achievable to obtain optimal diagnostic quality i mages. The site was prepped in sterile fashion. Full sterile technique was used, including cap, ma sk, sterile gloves and gown and a large sterile sheet. Hand hygiene and 2% chlorhexidine and/or beta dine/alcohol prep was utilized per protocol for cutaneous antisepsis. The skin and subcutaneous tiss ues were infiltrated with local anesthetic solution. DICOM format image data is available electronic ally for review and comparison. Using CT guidance the prescribed site was localized. Drainage was performed using the prescribed cat heter The patient tolerated the procedure well and there were no complications. Conscious sedation was per formed with the prescribed dosages and duration as above in the presence of an independent trained ra diology nurse to assist in the monitoring of the patient. EKG and oximetry remained stable throughou t the procedure. The patient tolerated the procedure well and there were no complications. The patient was sent to pos t anesthesia recovery in stable condition. CONCLUSION: Uncomplicated CT guided drainage. Giovanni Hernandez MD on June 16, 2017 at 14:26 Board Certified Radiologist. This report was verified electronically.
[2017-06-17] MEDS: CITALOPRAM HYDROBROMIDE 20 MG TAB PO SCH (09:00)
[2017-06-17] MEDS: PETROLATUM 49%/ZINC OXIDE 15% 4 OUNCE TUBE TOPICAL SCH ×2 (09:00→21:00)
[2017-06-17] MEDS: MULTIVITAMIN TAB PO SCH (09:00)
[2017-06-17] MEDS: THIAMINE HCL 100 MG TAB PO SCH (09:01)
[2017-06-17] MEDS: FOLIC ACID 1 MG TAB PO SCH (09:01)
[2017-06-17] MEDS: PANTOPRAZOLE SOD 20 MG DELAYED RELEASE TAB PO SCH (09:01)
[2017-06-17] MEDS: DILTIAZEM HCL 90 MG TAB PO SCH ×4 (09:02→21:47)
[2017-06-17] MEDS: ASPIRIN 81 MG CHEW TAB CHEW SCH (09:02)
[2017-06-17] MEDS: DIGOXIN 0.125 MG TAB PO SCH (09:02)
[2017-06-17 09:17] LABS: HEMATOCRIT 28.1 % (39.0-51.0); HEMOGLOBIN 9.4 GM/DL (13.0-17.0); MEAN CELL VOLUME 89.5 FL (80.0-100.0); MEAN CORPUSCULAR HEMOGLOBIN 30.1 PG (27.0-34.0); MEAN CORPUSCULAR HGB CONC 33.6 % (32.0-36.0); MEAN PLATELET VOLUME 7.1 FL (7.0-11.0); PLATELET COUNT 328 TH/MM3 (150-450); RED BLOOD COUNT 3.13 MIL/MM3 (4.50-5.90); RED CELL DISTRIBUTION WIDTH 13.7 % (11.6-17.2); WHITE BLOOD COUNT 10.6 TH/MM3 (4.0-11.0)
[2017-06-17 09:47] LABS: ALBUMIN 2.5 GM/DL (3.4-5.0); ALKALINE PHOSPHATASE 82 U/L (45-117); ALT (GPT) 14 U/L (12-78); AST (GOT) 16 U/L (15-37); BICARBONATE 24.8 MEQ/L (21.0-32.0); BLOOD UREA NITROGEN 16 MG/DL (7-18); CALCIUM 9.6 MG/DL (8.5-10.1); CHLORIDE 98 MEQ/L (98-107); CREATININE 1.79 MG/DL (0.60-1.30); GLOMERULAR FILTRATION RATE 38 ML/MIN (>89); SODIUM (NA) 135 MEQ/L (136-145); TOTAL BILIRUBIN ADULT 0.6 MG/DL (0.2-1.0); TOTAL PROTEIN 7.2 GM/DL (6.4-8.2)
[2017-06-17 09:52] LABS: GLUCOSE,RANDOM 40 MG/DL (74-106)
[2017-06-17 12:00] VITALS: BP 121/65; PULSE 61; RESP 17; TEMP 98.4; O2SAT 97
[2017-06-17] MEDS ORDERED: MAGNESIUM HYDROXIDE SUSP 30 ML CUP PO PRN (12:15)
[2017-06-17] MEDS: oxyCODONE/ACETAMINOPHEN 10 MG/325 MG TAB PO PRN ×3 (13:23→23:08)
[2017-06-17] MEDS: FERROUS SULFATE 325 MG (65 MG ELEMENTAL IRON) TAB PO SCH ×2 (13:23→18:42)
[2017-06-17] MEDS: LACTOBACILLUS ACIDOPHILUS TAB PO SCH ×2 (13:23→18:42)
--- NOTE | 2017-06-17 15:18 | HHI.HP ---
[facility] Admission Diagnosis Diagnoses: (1) Major neurocognitive disorder due to another medical condition (2) Toxic metabolic encephalopathy (3) Decubitus ulcer of buttock, stage 2 (4) MRSA bacteremia (5) Depression (6) Stage II pressure ulcer of buttock (7) Polysubstance abuse (8) Septic discitis of lumbar region (9) Psoas abscess, left Travel History International Travel<30 Days: No Contact w/Intl Traveler <30 Da: No History of Present Illness Mr. Hamlin is a 66-year-old male. He has a medical history of osteoarthritis, anxiety, hepatitis C, alcohol use, and history of IV drug abuse. He originally came into the hospital with back pain and altered mental status. At that time he was diagnosed with sepsis and encephalopathy. His condition was treated with start of treatment in the ICU. He developed agitation and combativeness related to withdrawals. A. fib RVR was also present and transient responded to Cardizem and metoprolol. CT showed discitis at L2 and L3. Blood cultures were positive for MRSA. LP culture was negative. Needle biopsy performed at L2 to L3 disc space grew MRSA. IV vancomycin was selected by ID as a treatment. IV vancomycin was in addition to the IV cefepime and ampicillin. He also was found to have a psoas abscess at the left. Once treatments caused him to improve he transitioned to [place] inpatient rehabilitation. Follow-up imaging after he was at [place] showed recurrence of psoas abscess. He is transitioned back to inpatient hospital care. Psoas muscle has had a drain placed into the abscess. Presently patient' s primary complaint is pain. No other complaints. Review of Systems Constitutional: DENIES: Fever, Chills, Night Sweats Eyes: DENIES: Blurred vision, Diplopia, Eye inflammation, Eye pain Ears, nose, mouth, throat: DENIES: Tinnitus, Hearing loss, Vertigo Respiratory: DENIES: Cough, Wheezing, Shortness of breath Cardiovascular: DENIES: Chest pain, Palpitations, Syncope Gastrointestinal: DENIES: Abdominal pain, Black stools, Bloody stools, Constipation, Diarrhea, Nausea Musculoskeletal: COMPLAINS OF: Back pain, DENIES: Joint pain, Muscle aches, Stiffness Integumentary: DENIES: Abnormal pigmentation, Nail changes, Pruritus, Rash Hematologic/lymphatic: DENIES: Bruising, Lymphadenopathy Immunologic/allergic: DENIES: Eczema, Urticaria Neurologic: DENIES: Abnormal gait, Headache, Paresthesias Psychiatric: DENIES: Anxiety, Confusion, Hallucinations Past Family Social History Past Medical History Osteoarthritis Gen. anxiety disorder Hepatitis C Past Surgical History No prior history of surgeries Reported Medications Reported Meds & Active Scripts Active Thera Tablet (Multivitamin with Folic Acid) 400 Mcg Tablet 1 Tab PO DAILY 30 Days Gnp Vitamin B-1 (Thiamine HCl) 100 Mg Tab 100 Mg PO DAILY 30 Days Folic Acid 1 Mg Tablet 1 Mg PO DAILY 30 Days Lidoderm (Lidocaine) 5 % Adh..patch 1 Patch T-DERMAL DAILY 30 Days Protonix (Pantoprazole Sodium) 20 Mg Tab 20 Mg PO DAILY 30 Days [Petrolat-Zinc Barrier Oint] 120 APPLIC/120 GM Oint 1 Applic TOPICAL BID 30 Days Celexa (Citalopram Hydrobromide) 20 Mg Tab 20 Mg PO DAILY 30 Days Eq Acetaminophen (Acetaminophen) 325 Mg Tab 650 Mg PO Q4H PRN 30 Days Diltiazem (Diltiazem HCl) 90 Mg Tab 90 Mg PO QID 30 Days Metoprolol Tartrate 25 Mg Tab 25 Mg PO Q8HR 30 Days Digoxin 0.125 Mg Tab 0.125 Mg PO DAILY 30 Days Ferosul (Ferrous Sulfate) 325 Mg (65 Mg Iron) Tablet 325 Mg PO BID@12,17 30 Days Methocarbamol 500 Mg Tab 500 Mg PO TID PRN 30 Days [Albuterol-Ipratropium Neb] 1 AMPULE Nebu 1 Ampule NEB Q4HR NEB PRN 30 Days Vancomycin Inj (Vancomycin HCl) 1 Gram Inj 1,200 Mg IV Q18 HRS 46 Days stop date 07/26/17 [place] (Hydrocodone-Acetaminophen) 5 Mg-325 Mg Tab 1 Tab PO Q4H PRN Thera Tablet (Multivitamin with Folic Acid) 400 Mcg Tablet 1 Tab PO DAILY Gnp Vitamin B-1 (Thiamine HCl) 100 Mg Tab 100 Mg PO DAILY Folic Acid 1 Mg Tablet 1 Mg PO DAILY Protonix (Pantoprazole Sodium) 20 Mg Tab 20 Mg PO DAILY Tgt Aspirin (Aspirin) 81 Mg Chw 81 Mg CHEW DAILY Diltiazem (Diltiazem HCl) 90 Mg Tab 90 Mg PO QID Metoprolol Tartrate 25 Mg Tab 25 Mg PO Q8HR Digoxin 0.125 Mg Tab 0.125 Mg PO DAILY Robaxin (Methocarbamol) 500 Mg Tab 500 Mg PO TID 3 Days Reported Citalopram (Citalopram Hydrobromide) 20 Mg Tab 20 Mg PO DAILY Allergies: Coded Allergies: No Known Allergies (Unverified Allergy, Unknown, 05/22/17) Active Ordered Medications Administered Medications Medications (Trade) Dose Ordered Sig/Frandy Route PRN Reason Start Time Stop Time Status Last Admin Dose Admin Aspirin (Aspirin Chew) 81 mg DAILY CHEW 06/17/17 09:00 06/17/17 09:02 Citalopram Hydrobromide (CeleXA) 20 mg DAILY PO 06/17/17 09:00 06/17/17 09:00 Digoxin (Lanoxin) 0.125 mg DAILY PO 06/17/17 09:00 06/17/17 09:02 Diltiazem HCl (Cardizem) 90 mg QID PO 06/16/17 21:00 06/17/17 09:02 Ferrous Sulfate (Ferrous Sulfate) 325 mg BID@12,17 PO 06/17/17 12:00 06/17/17 13:23 Folic Acid (Folate) 1 mg DAILY PO 06/17/17 09:00 06/17/17 09:01 Methocarbamol (Robaxin) 500 mg TID PRN PO MUSCLE SPASM 06/16/17 18:30 06/17/17 04:26 Metoprolol Tartrate (Lopressor) 25 mg Q8HR PO 06/16/17 22:00 06/17/17 13:23 Multivitamins (Theragran) 1 tab DAILY PO 06/17/17 09:00 06/17/17 09:00 Pantoprazole Sodium (Protonix) 20 mg DAILY PO 06/17/17 09:00 06/17/17 09:01 Thiamine HCl (Vitamin B1) 100 mg DAILY PO 06/17/17 09:00 06/17/17 09:01 Vancomycin HCl 1250 mg/Sodium Chloride 262.5 ml @ 262.5 mls/ hr Q24H IV 06/16/17 22:00 06/16/17 22:33 Oxycodone/ Acetaminophen (Percocet 10-325 Mg) 1 tab Q4H PRN PO Pain 7 to 10 06/17/17 12:15 06/17/17 13:23 Lactobacillus Acidophilus (Lactinex) 1 tab TID PO 06/17/17 13:00 06/17/17 13:23 Family History Coronary artery disease and cancer runs in his family Social History History of alcohol abuse History of IV drug abuse No reports of smoking Physical Exam Vital Signs Vital Signs Date Time Temp Pulse Resp B/P (MAP) Pulse Ox O2 Delivery O2 Flow Rate FiO2 06/17/17 12:00 98.4 61 17 121/65 (83) 97 06/17/17 08:00 98.2 69 19 147/80 (102) 98 06/17/17 00:00 97.2 06/17/17 00:00 97.2 73 16 131/69 (89) 96 06/16/17 20:00 96.3 79 16 134/77 (96) 98 06/16/17 16:15 66 16 138/71 (93) 97 06/16/17 15:15 62 20 138/74 (95) 97 Physical Exam GENERAL: NAD, A&Ox3 HEAD: Normocephalic. NECK: Supple, trachea midline. No lymphadenopathy. EYES: No scleral icterus. No injection or drainage. CARDIOVASCULAR: Regular rate and rhythm without murmurs, gallops, or rubs. RESPIRATORY: Breath sounds equal bilaterally. No accessory muscle use. GASTROINTESTINAL: Abdomen soft, non-tender, nondistended. MUSCULOSKELETAL: No cyanosis, or edema. Patient's left back has psoas muscle abscess drain present SKIN: Warm and dry. NEURO: No focal neurological deficitis. Laboratory Laboratory Tests Test 06/17/17 07:20 White Blood Count 10.6 Red Blood Count 3.13 Hemoglobin 9.4 Hematocrit 28.1 Mean Corpuscular Volume 89.5 Mean Corpuscular Hemoglobin 30.1 Mean Corpuscular Hemoglobin Concent 33.6 Red Cell Distribution Width 13.7 Platelet Count 328 Mean Platelet Volume 7.1 Blood Urea Nitrogen 16 Creatinine 1.79 Random Glucose 40 Total Protein 7.2 Albumin 2.5 Calcium Level 9.6 Alkaline Phosphatase 82 Aspartate Amino Transf (AST/SGOT) 16 Alanine Aminotransferase (ALT/SGPT) 14 Total Bilirubin 0.6 Sodium Level 135 Potassium Level 4.1 Chloride Level 98 Carbon Dioxide Level 24.8 Anion Gap 12 Estimat Glomerular Filtration Rate 38 Date/Time Source Procedure Growth Status 06/16/17 14:05 Fluid Other Gram Stain - Final Resulted 06/16/17 14:05 Body Fluid Culture - Preliminary Staphylococcus Species Resulted Result Diagram: 06/17/1771906/17/1720 Nancy VTE Risk Assessment Caprini VTE Risk Assessment: Mod/High Risk (score >= 2) Caprini Risk Assessment Model Point Value = 1 Point Value = 2 Point Value = 3 Point Value = 5 Age 41-60 Minor surgery BMI > 25 kg/m2 Swollen legs Varicose veins or History of unexplained or recurrent spontaneous Oral contraceptives or hormone replacement Sepsis (< 1 month) Serious lung disease, including pneumonia (< 1 month) Abnormal pulmonary function Acute myocardial infarction Congestive heart failure (< 1 month) History of inflammatory bowel disease Medical patient at bed rest Age 61-74 Arthroscopic surgery Major open surgery (> 45 min) Laparoscopic surgery (> 45 min) Malignancy Confined to bed (> 72 hours) Immobilizing plaster cast Central venous access Age >= 75 History of VTE Family history of VTE Factor V Leiden Prothrombin [id number] Lupus anticoagulant Anticardiolipin antibodies Elevated serum homocysteine Heparin-induced thrombocytopenia Other congenital or acquired thrombophilia Stroke (< 1 month) Elective arthroplasty Hip, pelvis, or leg fracture Acute spinal cord injury (< 1 month) Prophylaxis Regimen Total Risk Factor Score Risk Level Prophylaxis Regimen 0-1 Low Early ambulation 2 Moderate Order ONE of the following: *Sequential Compression Device (SCD) *Heparin 5000 units SQ BID 3-4 Higher Order ONE of the following medications: *Heparin 5000 units SQ TID *Enoxaparin/Lovenox 40 mg SQ daily (WT < 150 kg, CrCl > 30 mL/min) *Enoxaparin/Lovenox 30 mg SQ daily (WT < 150 kg, CrCl > 10-29 mL/min) *Enoxaparin/Lovenox 30 mg SQ BID (WT < 150 kg, CrCl > 30 mL/min) AND/OR *Sequential Compression Device (SCD) 5 or more Highest Order ONE of the following medications: *Heparin 5000 units SQ TID (Preferred with Epidurals) *Enoxaparin/Lovenox 40 mg SQ daily (WT < 150 kg, CrCl > 30 mL/min) *Enoxaparin/Lovenox 30 mg SQ daily (WT < 150 kg, CrCl > 10-29 mL/min) *Enoxaparin/Lovenox 30 mg SQ BID (WT < 150 kg, CrCl > 30 mL/min) AND *Sequential Compression Device (SCD) Assessment and Plan Problem List: (1) Major neurocognitive disorder due to another medical condition ICD Code: F02.80 - Dementia in other diseases classified elsewhere without behavioral disturbance (2) Toxic metabolic encephalopathy ICD Code: G92 - Toxic encephalopathy Status: Acute (3) Decubitus ulcer of buttock, stage 2 ICD Code: L89.302 - Pressure ulcer of unspecified buttock, stage 2 Status: Acute (4) MRSA bacteremia ICD Code: R78.81 - Bacteremia Status: Acute (5) Depression ICD Code: F32.9 - Major depressive disorder, single episode, unspecified Status: Chronic (6) Stage II pressure ulcer of buttock ICD Code: L89.302 - Pressure ulcer of unspecified buttock, stage 2 Status: Acute (7) Polysubstance abuse ICD Code: F19.10 - Other psychoactive substance abuse, uncomplicated Status: Chronic (8) Septic discitis of lumbar region ICD Code: M46.46 - Discitis, unspecified, lumbar region Status: Acute (9) Psoas abscess, left ICD Code: K68.12 - Psoas muscle abscess Status: Acute Assessment and Plan 66-year-old recently hospitalized and treated for L2-L3 discitis, meningitis, MRSA bacteremia, A. fib with RVR, and respiratory failure. Patient has returned from inpatient rehabilitation secondary to recurrence of psoas abscess. Psoas muscle abscess, left Subacute L3-L3 discitis with MRSA bacteremia Subacute Bacterial meningitis Interventional radiology has placed to drain Follow cultures Continue to monitor output History of MRSA discitis recently would place MRSA as a grade is suspect Patient previously completed treatment with Levaquin Follow CBC TLSO brace Mobility secondary to discitis/prolonged hospitalization Continue physical therapy A. fib with RVR Continue metoprolol Continue diltiazem Continue digoxin Continue aspirin Patient is presently rate controlled Anemia Continue iron supplement Follow hemoglobin and hematocrit Alcohol abuse History of IV heroin drug abuse History of cocaine abuse No active withdrawal Outpatient therapy recommended Hepatitis C Standard precautions Consider treatment as an outpatient DVT prophylaxis SCDs Heparin Physician Certification 2 Midnight Certification Type: Admission for Inpatient Services Order for Inpatient Services The services are ordered in accordance with Medicare regulations or non- Medicare payer requirements, as applicable. In the case of services not specified as inpatient-only, they are appropriately provided as inpatient services in accordance with the 2-midnight benchmark. Estimated LOS (days): 4 days is the estimated time the patient will need to remain in the hospital, assuming treatment plan goals are met and no additional complications. Post-Hospital Plan: SNF Greyson Herrmann MD Jun 17, 2017 15:18
[2017-06-17 16:00] VITALS: BP 117/67; PULSE 57; RESP 20; TEMP 98; O2SAT 98
[2017-06-17] MEDS: ENOXAPARIN SODIUM 40 MG/0.4 ML SYRINGE SQ SCH (18:42)
[2017-06-17 20:00] VITALS: BP 128/70; PULSE 59; RESP 14; TEMP 97.1; O2SAT 96
[2017-06-17] MEDS ORDERED: VANCOMYCIN 1,000 MG/NS 250 ML IV ONE ×2 (21:00)
[2017-06-17] MEDS: DOCUSATE SODIUM 100 MG CAP PO SCH (21:47)
[2017-06-18] VITALS (7 sets, daily range): BP systolic 117–142; BP diastolic 60–72; PULSE 49–64; RESP 17–21; TEMP 96–97.8; O2SAT 95–99
[2017-06-18] MEDS: METOPROLOL TARTRATE 25 MG TAB PO SCH ×3 (05:40→21:15)
[2017-06-18] MEDS: oxyCODONE/ACETAMINOPHEN 10 MG/325 MG TAB PO PRN ×4 (08:35→21:13)
[2017-06-18] MEDS: FOLIC ACID 1 MG TAB PO SCH (08:35)
[2017-06-18] MEDS: DOCUSATE SODIUM 100 MG CAP PO SCH ×2 (08:35→21:14)
[2017-06-18] MEDS: CITALOPRAM HYDROBROMIDE 20 MG TAB PO SCH (08:35)
[2017-06-18] MEDS: DILTIAZEM HCL 90 MG TAB PO SCH ×4 (08:35→21:13)
[2017-06-18] MEDS: MULTIVITAMIN TAB PO SCH (08:36)
[2017-06-18] MEDS: ASPIRIN 81 MG CHEW TAB CHEW SCH (08:36)
[2017-06-18] MEDS: LACTOBACILLUS ACIDOPHILUS TAB PO SCH ×3 (08:36→18:37)
[2017-06-18] MEDS: DIGOXIN 0.125 MG TAB PO SCH (08:37)
[2017-06-18] MEDS: THIAMINE HCL 100 MG TAB PO SCH (08:42)
[2017-06-18] MEDS: PANTOPRAZOLE SOD 20 MG DELAYED RELEASE TAB PO SCH (08:42)
[2017-06-18 09:00] LABS: AUTOMATED NEUTROPHIL # 6.4 TH/MM3 (1.8-7.7); BASOPHIL # 0.1 TH/MM3 (0-0.2); BASOPHIL % 0.5 % (0.0-2.0); EOSINOPHIL # 0.3 TH/MM3 (0-0.4); EOSINOPHIL % 3.4 % (0.0-4.0); HEMATOCRIT 28.2 % (39.0-51.0); HEMOGLOBIN 9.8 GM/DL (13.0-17.0); LYMPH % 12.5 % (9.0-44.0); LYMPHOCYTE # 1.2 TH/MM3 (1.0-4.8); MEAN CELL VOLUME 88.8 FL (80.0-100.0); MEAN CORPUSCULAR HEMOGLOBIN 30.9 PG (27.0-34.0); MEAN CORPUSCULAR HGB CONC 34.8 % (32.0-36.0); MEAN PLATELET VOLUME 7.2 FL (7.0-11.0); MONO % 15.5 % (0.0-8.0); MONOCYTE # 1.5 TH/MM3 (0-0.9); NEUT % 68.1 % (16.0-70.0); PLATELET COUNT 329 TH/MM3 (150-450); RED BLOOD COUNT 3.17 MIL/MM3 (4.50-5.90); RED CELL DISTRIBUTION WIDTH 13.6 % (11.6-17.2); WHITE BLOOD COUNT 9.4 TH/MM3 (4.0-11.0)
[2017-06-18 09:14] LABS: ALBUMIN 2.5 GM/DL (3.4-5.0); AST (GOT) 17 U/L (15-37); BICARBONATE 23.8 MEQ/L (21.0-32.0); BLOOD UREA NITROGEN 16 MG/DL (7-18); CALCIUM 9.3 MG/DL (8.5-10.1); CHLORIDE 97 MEQ/L (98-107); CREATININE 1.77 MG/DL (0.60-1.30); GLOMERULAR FILTRATION RATE 38 ML/MIN (>89); GLUCOSE,RANDOM 63 MG/DL (74-106); SODIUM (NA) 131 MEQ/L (136-145)
[2017-06-18 09:15] LABS: ALT (GPT) 14 U/L (12-78)
[2017-06-18 09:18] LABS: ALKALINE PHOSPHATASE 83 U/L (45-117); TOTAL BILIRUBIN ADULT 0.6 MG/DL (0.2-1.0); TOTAL PROTEIN 7.3 GM/DL (6.4-8.2)
[2017-06-18] MEDS: FERROUS SULFATE 325 MG (65 MG ELEMENTAL IRON) TAB PO SCH ×2 (13:11→18:38)
--- NOTE | 2017-06-18 14:25 | HHI.PR ---
Subjective Remarks No new complaints from the patient today. Cultures are growing staph aureus thus far. Hypoglycemia present again this morning but not as severe as previous morning. Objective Vital Signs Date Time Temp Pulse Resp B/P (MAP) Pulse Ox O2 Delivery O2 Flow Rate FiO2 06/18/17 12:00 96.2 53 19 118/65 (82) 99 06/18/17 08:00 97.8 54 17 130/72 (91) 95 06/18/17 05:42 64 06/18/17 00:00 97.7 53 17 127/60 (82) 96 06/17/17 20:00 97.1 59 14 128/70 (89) 96 06/17/17 16:00 98.0 57 20 117/67 (84) 98 I/O 06/17/17 06/17/17 06/17/17 06/18/17 06/18/17 06/18/17 07:00 15:00 23:00 07:00 15:00 23:00 Intake Total 262.5 ml 195 ml 830 ml Output Total 1000 ml 300 ml 800 ml Balance -737.5 ml -105 ml 30 ml Intake Oral 195 ml 580 ml IV Total 262.5 ml 250 ml Output Urine Total 1000 ml 300 ml 800 ml # Voids 1 # Bowel Movements 0 Result Diagram: 06/18/1708 06/18/17 0808 Objective Remarks GENERAL: NAD, A&Ox3 HEAD: Normocephalic. NECK: Supple, trachea midline. No lymphadenopathy. EYES: No scleral icterus. No injection or drainage. CARDIOVASCULAR: Regular rate and rhythm without murmurs, gallops, or rubs. RESPIRATORY: Breath sounds equal bilaterally. No accessory muscle use. GASTROINTESTINAL: Abdomen soft, non-tender, nondistended. MUSCULOSKELETAL: No cyanosis, or edema. Left middle back has drain present. SKIN: Warm and dry. NEURO: No focal neurological deficitis. A/P Problem List: (1) Psoas abscess, left ICD Code: K68.12 - Psoas muscle abscess Status: Acute Assessment and Plan 66-year-old recently hospitalized and treated for L2-L3 discitis, meningitis, MRSA bacteremia, A. fib with RVR, and respiratory failure. Patient has returned from inpatient rehabilitation secondary to recurrence of psoas abscess. Symptoms are clinically improving. Staph aureus is growing out on cultures thus far. We'll continue to monitor cultures until final culture present. Continue to monitor blood work to check blood sugars and renal function. Labs ordered for further monitoring. Psoas muscle abscess, left Subacute L3-L3 discitis with MRSA bacteremia Subacute Bacterial meningitis Interventional radiology has placed to drain Follow cultures Continue to monitor output History of MRSA discitis recently would place MRSA as a grade is suspect Patient previously completed treatment with Levaquin Follow CBC TLSO brace Mobility secondary to discitis/prolonged hospitalization Continue physical therapy A. fib with RVR Continue metoprolol Continue diltiazem Continue digoxin Continue aspirin Patient is presently rate controlled Anemia Continue iron supplement Follow hemoglobin and hematocrit Alcohol abuse History of IV heroin drug abuse History of cocaine abuse No active withdrawal Outpatient therapy recommended Hepatitis C Standard precautions Consider treatment as an outpatient DVT prophylaxis SCDs Heparin Greyson Herrmann MD Jun 18, 2017 14:25
[2017-06-18] MEDS: ENOXAPARIN SODIUM 40 MG/0.4 ML SYRINGE SQ SCH (18:41)
[2017-06-18] MEDS: PETROLATUM 49%/ZINC OXIDE 15% 4 OUNCE TUBE TOPICAL SCH (19:26)
[2017-06-19] VITALS: BP 139/52; PULSE 59; RESP 17; TEMP 97.9; O2SAT 98
[2017-06-19] MEDS: oxyCODONE/ACETAMINOPHEN 10 MG/325 MG TAB PO PRN ×4 (02:54→18:10)
[2017-06-19 05:05] VITALS: BP 126/63; PULSE 58; RESP 17; TEMP 95.8; O2SAT 96
[2017-06-19] MEDS: METOPROLOL TARTRATE 25 MG TAB PO SCH ×3 (05:11→22:00)
[2017-06-19 06:03] LABS: CALCIUM 9.2 MG/DL (8.5-10.1); CREATININE 1.96 MG/DL (0.60-1.30)
[2017-06-19 08:00] VITALS: BP 119/66; PULSE 51; RESP 17; TEMP 96.4; O2SAT 96
[2017-06-19] MEDS: PETROLATUM 49%/ZINC OXIDE 15% 4 OUNCE TUBE TOPICAL SCH ×2 (09:00→21:00)
[2017-06-19] MEDS: LACTOBACILLUS ACIDOPHILUS TAB PO SCH ×3 (09:02→18:10)
[2017-06-19] MEDS: MULTIVITAMIN TAB PO SCH (09:02)
[2017-06-19] MEDS: PANTOPRAZOLE SOD 20 MG DELAYED RELEASE TAB PO SCH (09:02)
[2017-06-19] MEDS: DOCUSATE SODIUM 100 MG CAP PO SCH (09:02)
[2017-06-19] MEDS: THIAMINE HCL 100 MG TAB PO SCH (09:03)
[2017-06-19] MEDS: DILTIAZEM HCL 90 MG TAB PO SCH ×3 (09:03→18:10)
[2017-06-19] MEDS: CITALOPRAM HYDROBROMIDE 20 MG TAB PO SCH (09:03)
[2017-06-19] MEDS: ASPIRIN 81 MG CHEW TAB CHEW SCH (09:03)
[2017-06-19] MEDS: DIGOXIN 0.125 MG TAB PO SCH (09:03)
[2017-06-19] MEDS: FOLIC ACID 1 MG TAB PO SCH (09:03)
[2017-06-19 12:00] VITALS: BP 121/60; PULSE 52; RESP 16; TEMP 96.3; O2SAT 100
--- NOTE | 2017-06-19 12:20 | HHI.PR ---
Subjective Remarks Cultures have been finalized and showed MRSA as the cause of his psoas abscess. This matches his L-spine discitis infection. No significant output at the drain for the past 2 days. Drain in process of removal today. PT evaluation pending. IV therapy has really been arranged and he has approximately 36 days left of vancomycin IV. Possibility for discharge soon, location will be based on physical therapy evaluation. Objective Vital Signs Date Time Temp Pulse Resp B/P (MAP) Pulse Ox O2 Delivery O2 Flow Rate FiO2 06/19/17 12:00 96.3 52 16 121/60 (80) 100 06/19/17 08:00 96.4 51 17 119/66 (83) 96 06/19/17 00:00 97.9 59 17 139/52 (81) 98 06/18/17 21:16 62 06/18/17 20:00 96.0 58 17 142/68 (92) 99 06/18/17 16:00 97.5 49 21 117/61 (79) 96 I/O 06/18/17 06/18/17 06/18/17 06/19/17 06/19/17 06/19/17 06:59 14:59 22:59 06:59 14:59 22:59 Intake Total 830 ml 375 ml 240 ml Output Total 800 ml 300 ml 400 ml Balance 30 ml 75 ml 240 ml -400 ml Intake Oral 580 ml 375 ml 240 ml IV Total 250 ml Output Urine Total 800 ml 300 ml 400 ml # Voids 3 1 # Bowel Movements 0 0 Result Diagram: 06/18/17 0808 06/19/17 0505 Objective Remarks GENERAL: NAD, A&Ox3 HEAD: Normocephalic. NECK: Supple, trachea midline. No lymphadenopathy. EYES: No scleral icterus. No injection or drainage. CARDIOVASCULAR: Regular rate and rhythm without murmurs, gallops, or rubs. RESPIRATORY: Breath sounds equal bilaterally. No accessory muscle use. GASTROINTESTINAL: Abdomen soft, non-tender, nondistended. MUSCULOSKELETAL: No cyanosis, or edema. Left middle back has drain present. SKIN: Warm and dry. NEURO: No focal neurological deficitis. A/P Problem List: (1) Psoas abscess, left ICD Code: K68.12 - Psoas muscle abscess Status: Acute Assessment and Plan 66-year-old recently hospitalized and treated for L2-L3 discitis, meningitis, MRSA bacteremia, A. fib with RVR, and respiratory failure. Patient has returned from inpatient rehabilitation secondary to recurrence of psoas abscess. Symptoms are clinically improving. Cultures positive for MRSA. Coverage with vancomycin is already present. Approximately 36 more days of vancomycin remains on his previous treatment plan. Psoas muscle abscess, left (MRSA) Subacute L3-L3 discitis with MRSA bacteremia Subacute Bacterial meningitis Interventional radiology has placed to drain Final cultures show MRSA Continue to monitor output Continue Vancomycin Follow CBC TLSO brace Mobility secondary to discitis/prolonged hospitalization Continue physical therapy A. fib with RVR Continue metoprolol Continue diltiazem Continue digoxin Continue aspirin Patient is presently rate controlled Anemia Continue iron supplement Follow hemoglobin and hematocrit Alcohol abuse History of IV heroin drug abuse History of cocaine abuse No active withdrawal Outpatient therapy recommended Hepatitis C Standard precautions Consider treatment as an outpatient DVT prophylaxis SCDs Heparin Greyson Herrmann MD Jun 19, 2017 12:20
[2017-06-19] MEDS: METHOCARBAMOL 500 MG TAB PO PRN (13:58)
[2017-06-19] MEDS: FERROUS SULFATE 325 MG (65 MG ELEMENTAL IRON) TAB PO SCH ×2 (13:59→18:10)
[2017-06-19 16:00] VITALS: BP 125/61; PULSE 55; RESP 18; TEMP 96; O2SAT 97
[2017-06-19] MEDS: VANCOMYCIN 1,000 MG/NS 250 ML IV SCH ×2 (18:09)
[2017-06-19] MEDS: ENOXAPARIN SODIUM 40 MG/0.4 ML SYRINGE SQ SCH (18:10)
[2017-06-19 20:00] VITALS: BP 146/78; PULSE 57; RESP 17; TEMP 96.7; O2SAT 98
[2017-06-19] MEDS ORDERED: VANCOMYCIN HCL 1000 MG VIAL IV SCH (21:00)
[2017-06-20] MEDS: DILTIAZEM HCL 90 MG TAB PO SCH ×5 (00:03→19:56)
[2017-06-20] MEDS: oxyCODONE/ACETAMINOPHEN 10 MG/325 MG TAB PO PRN ×3 (00:05→23:56)
[2017-06-20] MEDS: DOCUSATE SODIUM 100 MG CAP PO SCH ×3 (00:06→19:57)
[2017-06-20 00:07] VITALS: BP 125/62; PULSE 50; RESP 17; TEMP 95.8; O2SAT 96
[2017-06-20] MEDS: METOPROLOL TARTRATE 25 MG TAB PO SCH ×4 (06:00→22:29)
[2017-06-20 06:58] LABS: AUTOMATED NEUTROPHIL # 5.3 TH/MM3 (1.8-7.7); BASOPHIL % 0.3 % (0.0-2.0); EOSINOPHIL # 0.3 TH/MM3 (0-0.4); EOSINOPHIL % 3.7 % (0.0-4.0); HEMATOCRIT 26.2 % (39.0-51.0); HEMOGLOBIN 9.3 GM/DL (13.0-17.0); LYMPH % 15.1 % (9.0-44.0); LYMPHOCYTE # 1.3 TH/MM3 (1.0-4.8); MEAN CELL VOLUME 87.7 FL (80.0-100.0); MEAN CORPUSCULAR HEMOGLOBIN 31.1 PG (27.0-34.0); MEAN CORPUSCULAR HGB CONC 35.4 % (32.0-36.0); MEAN PLATELET VOLUME 7.4 FL (7.0-11.0); MONO % 16.8 % (0.0-8.0); MONOCYTE # 1.4 TH/MM3 (0-0.9); NEUT % 64.1 % (16.0-70.0); PLATELET COUNT 326 TH/MM3 (150-450); RED BLOOD COUNT 2.98 MIL/MM3 (4.50-5.90); RED CELL DISTRIBUTION WIDTH 13.5 % (11.6-17.2); WHITE BLOOD COUNT 8.3 TH/MM3 (4.0-11.0)
[2017-06-20] MEDS: oxyCODONE/ACETAMINOPHEN 5 MG/325 MG TAB PO PRN ×3 (07:14→16:12)
[2017-06-20 07:31] LABS: ALBUMIN 2.5 GM/DL (3.4-5.0); AST (GOT) 16 U/L (15-37); BICARBONATE 28.2 MEQ/L (21.0-32.0); BLOOD UREA NITROGEN 17 MG/DL (7-18); CHLORIDE 97 MEQ/L (98-107); CREATININE 1.83 MG/DL (0.60-1.30); GLOMERULAR FILTRATION RATE 37 ML/MIN (>89); GLUCOSE,RANDOM 70 MG/DL (74-106); SODIUM (NA) 133 MEQ/L (136-145)
[2017-06-20 07:32] LABS: ALT (GPT) 12 U/L (12-78)
[2017-06-20 07:34] LABS: ALKALINE PHOSPHATASE 86 U/L (45-117); TOTAL BILIRUBIN ADULT 0.5 MG/DL (0.2-1.0); TOTAL PROTEIN 7.1 GM/DL (6.4-8.2)
[2017-06-20 08:00] VITALS: BP 137/68; PULSE 64; RESP 18; TEMP 96.9; O2SAT 100
[2017-06-20] MEDS: PETROLATUM 49%/ZINC OXIDE 15% 4 OUNCE TUBE TOPICAL SCH ×2 (09:00→20:02)
[2017-06-20] MEDS: PANTOPRAZOLE SOD 20 MG DELAYED RELEASE TAB PO SCH (10:41)
[2017-06-20] MEDS: LACTOBACILLUS ACIDOPHILUS TAB PO SCH ×3 (10:41→16:13)
[2017-06-20] MEDS: CITALOPRAM HYDROBROMIDE 20 MG TAB PO SCH (10:42)
[2017-06-20] MEDS: DIGOXIN 0.125 MG TAB PO SCH (10:42)
[2017-06-20] MEDS: MULTIVITAMIN TAB PO SCH (10:42)
[2017-06-20] MEDS: ASPIRIN 81 MG CHEW TAB CHEW SCH (10:42)
[2017-06-20] MEDS: FOLIC ACID 1 MG TAB PO SCH (10:42)
[2017-06-20] MEDS: THIAMINE HCL 100 MG TAB PO SCH (10:43)
[2017-06-20] MEDS: METHOCARBAMOL 500 MG TAB PO PRN ×2 (11:00→22:29)
[2017-06-20] MEDS: FERROUS SULFATE 325 MG (65 MG ELEMENTAL IRON) TAB PO SCH ×2 (11:55→16:12)
[2017-06-20 12:00] VITALS: BP 143/79; PULSE 66; RESP 18; TEMP 97.7; O2SAT 95
[2017-06-20] MEDS ORDERED: METH500T3 PO (14:27)
[2017-06-20] MEDS ORDERED: OXYC1TAB63 PO (14:27)
[2017-06-20] MEDS ORDERED: LACT PO (14:27)
[2017-06-20] MEDS ORDERED: VANC1000P IV (14:27)
--- NOTE | 2017-06-20 14:32 | HHI.DS ---
Discharge Summary Admission Date Jun 16, 2017 at 14:24 Discharge Date: Jun 21, 2017 Admitting Diagnosis (1) Major neurocognitive disorder due to another medical condition ICD Code: F02.80 - Dementia in other diseases classified elsewhere without behavioral disturbance Diagnosis: Secondary (2) Toxic metabolic encephalopathy ICD Code: G92 - Toxic encephalopathy Diagnosis: Secondary Status: Acute (3) Decubitus ulcer of buttock, stage 2 ICD Code: L89.302 - Pressure ulcer of unspecified buttock, stage 2 Diagnosis: Secondary Status: Acute (4) MRSA bacteremia ICD Code: R78.81 - Bacteremia Diagnosis: Principal Status: Acute (5) Depression ICD Code: F32.9 - Major depressive disorder, single episode, unspecified Diagnosis: Secondary Status: Chronic (6) Stage II pressure ulcer of buttock ICD Code: L89.302 - Pressure ulcer of unspecified buttock, stage 2 Diagnosis: Secondary Status: Acute (7) Polysubstance abuse ICD Code: F19.10 - Other psychoactive substance abuse, uncomplicated Diagnosis: Secondary Status: Chronic (8) Septic discitis of lumbar region ICD Code: M46.46 - Discitis, unspecified, lumbar region Diagnosis: Principal Status: Acute (9) Psoas abscess, left ICD Code: K68.12 - Psoas muscle abscess Status: Acute (10) Psoas abscess, left ICD Code: K68.12 - Psoas muscle abscess Diagnosis: Principal Procedures IR Drainage of Left Psoas Muscle Abscess Brief History - From Admission Mr. Hamlin is a 66-year-old male. He has a medical history of osteoarthritis, anxiety, hepatitis C, alcohol use, and history of IV drug abuse. He originally came into the hospital with back pain and altered mental status. At that time he was diagnosed with sepsis and encephalopathy. His condition was treated with start of treatment in the ICU. He developed agitation and combativeness related to withdrawals. A. fib RVR was also present and transient responded to Cardizem and metoprolol. CT showed discitis at L2 and L3. Blood cultures were positive for MRSA. LP culture was negative. Needle biopsy performed at L2 to L3 disc space grew MRSA. IV vancomycin was selected by ID as a treatment. IV vancomycin was in addition to the IV cefepime and ampicillin. He also was found to have a psoas abscess at the left. Once treatments caused him to improve he transitioned to [facility] inpatient rehabilitation. Follow-up imaging after he was at [facility] showed recurrence of psoas abscess. He is transitioned back to inpatient hospital care. Psoas muscle has had a drain placed into the abscess. Presently patient' s primary complaint is pain. No other complaints. CBC/BMP: 06/20/17 0506 06/20/17 0506 Significant Findings Laboratory Tests Test 06/18/17 08:08 06/19/17 05:05 06/20/17 05:06 Red Blood Count 3.17 MIL/MM3 (4.50-5.90) 2.98 MIL/MM3 (4.50-5.90) Hemoglobin 9.8 GM/DL (13.0-17.0) 9.3 GM/DL (13.0-17.0) Hematocrit 28.2 % (39.0-51.0) 26.2 % (39.0-51.0) Monocytes (%) (Auto) 15.5 % (0.0-8.0) 16.8 % (0.0-8.0) Monocytes # (Auto) 1.5 TH/MM3 (0-0.9) 1.4 TH/MM3 (0-0.9) Creatinine 1.77 MG/DL (0.60-1.30) 1.96 MG/DL (0.60-1.30) 1.83 MG/DL (0.60-1.30) Random Glucose 63 MG/DL (74-106) 70 MG/DL (74-106) 70 MG/DL (74-106) Albumin 2.5 GM/DL (3.4-5.0) 2.5 GM/DL (3.4-5.0) Sodium Level 131 MEQ/L (136-145) 134 MEQ/L (136-145) 133 MEQ/L (136-145) Chloride Level 97 MEQ/L (98-107) 97 MEQ/L (98-107) Estimat Glomerular Filtration Rate 38 ML/MIN (>89) 34 ML/MIN (>89) 37 ML/MIN (>89) PE at Discharge GENERAL: This is a well-nourished, well-developed patient, in no apparent distress. SKIN: Warm and dry HEENT: Normocephalic. Pupils equal round and reactive. Nose without bleeding. Airway patent. NECK: Trachea midline. No JVD. Supple. CARDIOVASCULAR: Regular rate and rhythm without murmurs, gallops, or rubs. RESPIRATORY: Clear to auscultation. Breath sounds equal bilaterally. No wheezes , rales, or rhonchi. GASTROINTESTINAL: Abdomen soft, non-tender, nondistended. Bowel Sounds normoactive x4. MUSCULOSKELETAL: Extremities without clubbing, cyanosis, or edema. TLSO brace in place NEUROLOGICAL: Awake and alert. Oriented to place, person. Moves all extremities. Normal speech. Hospital Course Mr. Hamlin is a 66 year old male. He was readmitted to this hospital with cell last muscle abscess of the left. He had been admitted for encephalopathy, MRSA bacteremia, and an L-spine discitis at last admit. Global debility resulted in him being discharged to inpatient rehabilitation. Discovery of the psoas muscle abscess prompted readmission and treatment. During this stay he has had the abscess drained. Good initial output and resolution of drainage prior to removal of drain. Drain has now been removed. Patient is slowly recovering but will need continued physical therapy. Hemoglobin are qualifies for inpatient rehabilitation. Medically [facility], in process of antibiotic arrangements which are to continue for 36 more days, specifically regarding his MRSA spinal discitis, but also covering his psoas muscle abscess which also grew MRSA. Pt Condition on Discharge: Stable Discharge Disposition: Discharge to SNF Discharge Time: > 30 minutes Discharge Instructions DIET: Follow Instructions for: As Tolerated, No Restrictions Activities you can perform: Regular-No Restrictions Follow up Referrals: PCP Follow-up - 2 Weeks New Medications: Lactobacillus Acidophilus (Acidophilus/l-Sporogenes) 35 Million Cell-25 Million Cell Tab 1 TAB PO TID for Probiotic, #180 TAB Oxycodone HCl/Acetaminophen (Oxycodone-Acetaminophen 5-325) 5 Mg-325 Mg Tablet 1 TAB PO Q6H PRN for Pain, #60 TAB Continued Medications: Aspirin (Tgt Aspirin) 81 Mg Chw 81 MG CHEW DAILY for Blood Clot Prevention, #30 EA Citalopram (Celexa) 20 Mg Tab 20 MG PO DAILY for 30 Days, TAB Digoxin (Digoxin) 0.125 Mg Tab 0.125 MG PO DAILY for 30 Days, TAB Diltiazem (Diltiazem) 90 Mg Tab 90 MG PO QID for 30 Days, TAB Ferrous Sulfate (Ferosul) 325 Mg (65 Mg Iron) Tablet 325 MG PO BID@12,17 for 30 Days Folic Acid (Folic Acid) 1 Mg Tablet 1 MG PO DAILY for 30 Days Methocarbamol (Methocarbamol) 500 Mg Tab 500 MG PO TID PRN for MUSCLE SPASM, #60 TAB (This prescription has been renewed) Metoprolol Tartrate (Metoprolol Tartrate) 25 Mg Tab 25 MG PO Q8HR for 30 Days, TAB Multivitamin with Folic Acid (Thera Tablet) 400 Mcg Tablet 1 TAB PO DAILY for 30 Days Pantoprazole (Protonix) 20 Mg Tab 20 MG PO DAILY for 30 Days, TAB Thiamine HCl (Gnp Vitamin B-1) 100 Mg Tab 100 MG PO DAILY for 30 Days, TAB Vancomycin Inj (Vancomycin Inj) 1 Gram Inj 1200 MG IV Q18 hrs for Infection, #36 BAG 0 Refills (This prescription has been renewed) stop date 07/26/17 [Albuterol-Ipratropium Neb] () 1 AMPULE NEBU 1 AMPULE NEB Q4HR NEB PRN for SHORTNESS OF BREATH for 30 Days [Petrolat-Zinc Barrier Oint] () 120 APPLIC/120 GM OINT 1 APPLIC TOPICAL BID for 30 Days Discontinued Medications: Acetaminophen (Eq Acetaminophen) 325 Mg Tab 650 MG PO Q4H PRN for Fever for 30 Days, #360 TAB Citalopram (Citalopram) 20 Mg Tab 20 MG PO DAILY for Control Depression, #30 TAB 0 Refills Digoxin (Digoxin) 0.125 Mg Tab 0.125 MG PO DAILY for arrhythmia , #30 TAB Diltiazem (Diltiazem) 90 Mg Tab 90 MG PO QID for arrhythmia , #90 TAB Folic Acid (Folic Acid) 1 Mg Tablet 1 MG PO DAILY for mvt, #30 MG Hydrocodone-Acetaminophen ([place]) 5 Mg-325 Mg Tab 1 TAB PO Q4H PRN for PAIN, #20 TAB 0 Refills Lidocaine (Lidoderm) 5 % Adh..patch 1 PATCH T-DERMAL DAILY for 30 Days Methocarbamol (Robaxin) 500 Mg Tab 500 MG PO TID for Muscle Spasm for 3 Days, TAB 0 Refills Metoprolol Tartrate (Metoprolol Tartrate) 25 Mg Tab 25 MG PO Q8HR for Blood Pressure Management, #90 TAB Multivitamin with Folic Acid (Thera Tablet) 400 Mcg Tablet 1 TAB PO DAILY for Nutritional Supplement, #30 MG Pantoprazole (Protonix) 20 Mg Tab 20 MG PO DAILY for Dyspepsia, #30 TAB Thiamine HCl (Gnp Vitamin B-1) 100 Mg Tab 100 MG PO DAILY for mvt, #30 TAB Greyson Herrmann MD Jun 20, 2017 14:32
[2017-06-20 16:00] VITALS: BP 118/64; PULSE 55; RESP 19; TEMP 97; O2SAT 96
[2017-06-20] MEDS: ENOXAPARIN SODIUM 40 MG/0.4 ML SYRINGE SQ SCH (16:13)
[2017-06-20] MEDS ORDERED: PHARMACY ORDERED LAB ONE (17:45)
[2017-06-20] MEDS: VANCOMYCIN 1,000 MG/NS 250 ML IV SCH ×2 (17:54)
[2017-06-20 20:00] VITALS: BP 129/63; PULSE 58; RESP 19; TEMP 96; O2SAT 96
[2017-06-21 00:02] VITALS: BP 143/74; PULSE 62; RESP 19; TEMP 96.7; O2SAT 97
[2017-06-21] MEDS: METOPROLOL TARTRATE 25 MG TAB PO SCH ×3 (06:10→20:05)
[2017-06-21] MEDS: oxyCODONE/ACETAMINOPHEN 10 MG/325 MG TAB PO PRN ×4 (06:10→20:05)
[2017-06-21 08:00] VITALS: BP 115/61; PULSE 60; RESP 20; TEMP 97.2; O2SAT 96
[2017-06-21] MEDS: PETROLATUM 49%/ZINC OXIDE 15% 4 OUNCE TUBE TOPICAL SCH ×2 (09:00→19:24)
[2017-06-21] MEDS: FOLIC ACID 1 MG TAB PO SCH (09:30)
[2017-06-21] MEDS: LACTOBACILLUS ACIDOPHILUS TAB PO SCH ×3 (09:30→18:01)
[2017-06-21] MEDS: DILTIAZEM HCL 90 MG TAB PO SCH ×4 (09:30→19:23)
[2017-06-21] MEDS: PANTOPRAZOLE SOD 20 MG DELAYED RELEASE TAB PO SCH (09:30)
[2017-06-21] MEDS: DOCUSATE SODIUM 100 MG CAP PO SCH ×2 (09:30→19:23)
[2017-06-21] MEDS: CITALOPRAM HYDROBROMIDE 20 MG TAB PO SCH (09:30)
[2017-06-21] MEDS: DIGOXIN 0.125 MG TAB PO SCH (09:31)
[2017-06-21] MEDS: THIAMINE HCL 100 MG TAB PO SCH (09:31)
[2017-06-21] MEDS: MULTIVITAMIN TAB PO SCH (09:31)
[2017-06-21] MEDS: ASPIRIN 81 MG CHEW TAB CHEW SCH (09:31)
[2017-06-21 12:00] VITALS: BP 131/72; PULSE 62; RESP 20; TEMP 97.2; O2SAT 95
[2017-06-21] MEDS: FERROUS SULFATE 325 MG (65 MG ELEMENTAL IRON) TAB PO SCH ×2 (12:45→17:20)
--- NOTE | 2017-06-21 14:33 | HHI.PR ---
Subjective Remarks Plan for discharge to care home facility today. 36 more days of vancomycin plan. Arrangements for outpatient IV antibiotics and PT at a care home facility are in process today. Objective Vital Signs Date Time Temp Pulse Resp B/P (MAP) Pulse Ox O2 Delivery O2 Flow Rate FiO2 06/21/17 12:00 97.2 62 20 131/72 (91) 95 06/21/17 08:00 97.2 60 20 115/61 (79) 96 06/21/17 00:02 96.7 62 19 143/74 (97) 97 06/20/17 20:00 96.0 58 19 129/63 (85) 96 06/20/17 16:00 97.0 55 19 118/64 (82) 96 I/O 06/20/17 06/20/17 06/20/17 06/21/17 06/21/17 06/21/17 07:00 15:00 23:00 07:00 15:00 23:00 Intake Total 240 ml 240 ml 1210 ml 600 ml 970 ml Output Total 125 ml 900 ml 4 ml 600 ml Balance 115 ml 240 ml 310 ml 596 ml 370 ml Intake Oral 240 ml 240 ml 960 ml 600 ml 970 ml IV Total 250 ml Output Urine Total 125 ml 900 ml 4 ml 600 ml Result Diagram: 06/20/17 0506 06/20/17 0506 Objective Remarks GENERAL: NAD, A&Ox3 HEAD: Normocephalic. NECK: Supple, trachea midline. No lymphadenopathy. EYES: No scleral icterus. No injection or drainage. CARDIOVASCULAR: Regular rate and rhythm without murmurs, gallops, or rubs. RESPIRATORY: Breath sounds equal bilaterally. No accessory muscle use. GASTROINTESTINAL: Abdomen soft, non-tender, nondistended. MUSCULOSKELETAL: No cyanosis, or edema. Left middle back has drain present. SKIN: Warm and dry. NEURO: No focal neurological deficitis. A/P Problem List: (1) Psoas abscess, left ICD Code: K68.12 - Psoas muscle abscess Status: Acute Assessment and Plan 66-year-old recently hospitalized and treated for L2-L3 discitis, meningitis, MRSA bacteremia, A. fib with RVR, and respiratory failure. Patient has returned from inpatient rehabilitation secondary to recurrence of psoas abscess. Symptoms are clinically improving. Cultures positive for MRSA. Coverage with vancomycin is already present. Approximately 36 more days of vancomycin remains on his previous treatment plan. Psoas muscle abscess, left (MRSA) Subacute L3-L3 discitis with MRSA bacteremia Subacute Bacterial meningitis Interventional radiology has placed to drain Final cultures show MRSA Continue to monitor output Continue Vancomycin Follow CBC TLSO brace Mobility secondary to discitis/prolonged hospitalization Continue physical therapy A. fib with RVR Continue metoprolol Continue diltiazem Continue digoxin Continue aspirin Patient is presently rate controlled Anemia Continue iron supplement Follow hemoglobin and hematocrit Alcohol abuse History of IV heroin drug abuse History of cocaine abuse No active withdrawal Outpatient therapy recommended Hepatitis C Standard precautions Consider treatment as an outpatient DVT prophylaxis SCDs Heparin Greyson Herrmann MD Jun 21, 2017 14:33
[2017-06-21] MEDS: ENOXAPARIN SODIUM 40 MG/0.4 ML SYRINGE SQ SCH (15:18)
[2017-06-21 16:00] VITALS: BP 122/62; PULSE 50; RESP 19; TEMP 97.6; O2SAT 96
[2017-06-21] MEDS ORDERED: PHARMACY ORDERED LAB ONE (17:45)
[2017-06-21] MEDS: VANCOMYCIN 1,000 MG/NS 250 ML IV SCH ×2 (18:01)
[2017-06-21 20:00] VITALS: BP 126/66; PULSE 55; RESP 20; TEMP 96; O2SAT 98
[2017-06-22] VITALS: BP 109/57; PULSE 52; RESP 17; TEMP 96.1; O2SAT 96
[2017-06-22] MEDS: oxyCODONE/ACETAMINOPHEN 10 MG/325 MG TAB PO PRN ×4 (05:46→22:03)
[2017-06-22] MEDS: METOPROLOL TARTRATE 25 MG TAB PO SCH ×2 (05:46→12:57)
[2017-06-22 08:00] VITALS: BP 129/69; PULSE 60; RESP 16; TEMP 96.8; O2SAT 97
[2017-06-22] MEDS: PETROLATUM 49%/ZINC OXIDE 15% 4 OUNCE TUBE TOPICAL SCH ×2 (09:00→21:00)
[2017-06-22] MEDS: MULTIVITAMIN TAB PO SCH (09:00)
[2017-06-22] MEDS: DIGOXIN 0.125 MG TAB PO SCH (09:52)
[2017-06-22] MEDS: CITALOPRAM HYDROBROMIDE 20 MG TAB PO SCH (09:52)
[2017-06-22] MEDS: LACTOBACILLUS ACIDOPHILUS TAB PO SCH ×3 (09:53→17:43)
[2017-06-22] MEDS: FOLIC ACID 1 MG TAB PO SCH (09:53)
[2017-06-22] MEDS: THIAMINE HCL 100 MG TAB PO SCH (09:53)
[2017-06-22] MEDS: DOCUSATE SODIUM 100 MG CAP PO SCH ×2 (09:53→22:03)
[2017-06-22] MEDS: PANTOPRAZOLE SOD 20 MG DELAYED RELEASE TAB PO SCH (09:53)
[2017-06-22] MEDS: DILTIAZEM HCL 90 MG TAB PO SCH ×4 (09:53→22:03)
[2017-06-22] MEDS: ASPIRIN 81 MG CHEW TAB CHEW SCH (09:53)
[2017-06-22 12:00] VITALS: BP 113/54; PULSE 56; RESP 14; TEMP 97.3; O2SAT 98
--- NOTE | 2017-06-22 12:05 | HHI.NSPN ---
History Chief Complaint: back pain Interval History 66-year-old male, history IV drug abuse, presented with L2-3 osteomyelitis, discitis, paraspinous abscess formation. Discharge recently to inpatient rehabilitation, readmitted after follow-up spinal imaging studies revealed progression of discitis to the L1 and L4 vertebral bodies with progressive so as abscess formation, focal epidural abscess without significant mass effect. 06/16/2017: CT-guided drain placement into the left psoas abscess. Exam Results Vital Signs Date Time Temp Pulse Resp B/P (MAP) Pulse Ox O2 Delivery O2 Flow Rate FiO2 06/22/17 11:33 20 06/22/17 08:00 96.8 60 129/69 (89) 97 Intake and Output 06/22/17 06/22/17 06/23/17 08:00 16:00 00:00 Intake Total 600 ml Output Total 400 ml Balance 200 ml Physical Examination Awake and alert Continues to have at least mild confusion. Question regarding his baseline mental status and overall judgment and insight. Sensation intact to light touch all extremities Strength within normal limits major flexion and extension groups all extremities Lucía's absent bilateral No ankle clonus Lab, Micro, Other Results Last Impressions Abscess Drainage CT 06/16/17 0000 Signed Impressions: Service Date/Time: Friday, June 16, 2017 13:16 - CONCLUSION: Uncomplicated CT guided drainage. Giovanni Hernandez MD Medical Decision Making Impression and Plan Impression: 1. Stable neurologic exam and patient with progressive osteomyelitis, so as abscess despite intravenous antibiotic. Plan: Discussed with the patient Continue out of bed with LSO brace Antibiotics per infectious disease Plan follow-up MRI lumbar spine in approximately 1 week as long as his neurologic exam remained stable. José Antonio Krause MD Jun 22, 2017 12:05
[2017-06-22] MEDS: FERROUS SULFATE 325 MG (65 MG ELEMENTAL IRON) TAB PO SCH ×2 (12:57→17:43)
--- NOTE | 2017-06-22 15:39 | HHI.FF ---
Infusion Therapy Location of Infusion Therapy: [facility] Infusion Therapy Order Patient Information Patient Weight 64 kg Diagnosis: (1) Septic discitis of lumbar region (2) Psoas abscess, left (3) ARF (acute renal failure) Coded Allergies: No Known Allergies (Unverified Allergy, Unknown, 05/22/17) Administer Medication Daptomycin 300mg IV q 24 hours Stop Treatment: Jul 26, 2017 Additional Information Venous access: PICC Line Additional Instructions [x] Peripheral flush and dressing changes per protocol [x] Implanted port and central offline cutter: * Implanted port: 10 ml Normal Saline followed by 5 ml Heparin 100 units/ml Heparin flush after each use and monthly to maintain. [] May leave port accessed during therapy. [] May leave peripheral site accessed for duration of therapy. [x] If patient has SOB or respiratory distress, check oxygen saturation. If less than 90% or clinical signs of respiratory distress, administer oxygen at 2 L/min. via nasal cannula and notify physician. [x] Anaphylaxis/Reaction orders: * Stop infusion. * Keep IV line open with saline flush. * Notify physician. * Monitor vital signs every 15 minutes until symptoms resolve. * Check Oxygen saturation; Oxygen at 2 L/min. via nasal cannula if less than 90% or clinical signs of respiratory distress. * Administer diphenhydramine (Benadryl) 25 mg IV STAT, (unless patient has received as pre-med). May repeat once, if necessary. * Solu-Cortef 250 mg IVP over 30-60 seconds, use 100 mg vials for each dissolution. * Epinephrine (1mg/1 ml) 0.3 mg subcutaneously or IVP now with any signs of respiratory distress. * Check with physician for new additional pre-med orders if patient is re- challenged or re-treated. [x] May remove PICC line when treatment complete, after confirming with Physician. [x] If the patient is admitted to the hospital, the ED, or transferred via [facility] , complete transfer form including medication reconciliation order sheet. Laboratory Tests Weekly Labs: BMP, CBC w/diff, SED Rate, Serum CK Levels Additional Information Follow up with Dr Kiki Snyder in 2 weeks. fax lab results to Dr. Hernandez [phone]. Giovanni Hernandez MD Jun 22, 2017 15:39
--- NOTE | 2017-06-22 15:57 | HHI.PR ---
Subjective Remarks Follow-up for psoas abscess. Patient is currently doing well. No fever or chills. Objective Vitals Vital Signs Date Time Temp Pulse Resp B/P (MAP) Pulse Ox O2 Delivery O2 Flow Rate FiO2 06/22/17 12:00 97.3 56 14 113/54 (73) 98 06/22/17 11:33 20 06/22/17 08:00 96.8 60 16 129/69 (89) 97 06/22/17 00:00 96.1 52 17 109/57 (74) 96 06/21/17 20:00 96.0 55 20 126/66 (86) 98 06/21/17 16:00 97.6 50 19 122/62 (82) 96 I/O 06/21/17 06/21/17 06/21/17 06/22/17 06/22/17 06/22/17 07:00 15:00 23:00 07:00 15:00 23:00 Intake Total 600 ml 970 ml 960 ml 600 ml Output Total 4 ml 600 ml 1000 ml 400 ml Balance 596 ml 370 ml -40 ml 200 ml Intake Oral 600 ml 970 ml 960 ml 600 ml Output Urine Total 4 ml 600 ml 1000 ml 400 ml # Voids 2 # Bowel Movements 1 Result Diagram: 06/20/17 0506 06/20/17 0506 Imaging Last Impressions Abscess Drainage CT 06/16/17 0000 Signed Impressions: Service Date/Time: Friday, June 16, 2017 13:16 - CONCLUSION: Uncomplicated CT guided drainage. Giovanni Hernandez MD Objective Remarks GENERAL: Alert, oriented 3, NAD. SKIN: Warm and dry. HEAD: Normocephalic. EYES: No scleral icterus. No injection or drainage. NECK: Supple, trachea midline. No JVD or lymphadenopathy. CARDIOVASCULAR: Regular rate and rhythm without murmurs, gallops, or rubs. RESPIRATORY: Breath sounds equal bilaterally. No accessory muscle use. GASTROINTESTINAL: Abdomen soft, non-tender, nondistended. MUSCULOSKELETAL: No cyanosis, or edema. BACK: Nontender without obvious deformity. No CVA tenderness. Procedures IR Drainage of Left Psoas Muscle Abscess A/P Problem List: (1) Major neurocognitive disorder due to another medical condition ICD Code: F02.80 - Dementia in other diseases classified elsewhere without behavioral disturbance (2) Toxic metabolic encephalopathy ICD Code: G92 - Toxic encephalopathy Status: Acute (3) Decubitus ulcer of buttock, stage 2 ICD Code: L89.302 - Pressure ulcer of unspecified buttock, stage 2 Status: Acute (4) MRSA bacteremia ICD Code: R78.81 - Bacteremia Status: Acute (5) Depression ICD Code: F32.9 - Major depressive disorder, single episode, unspecified Status: Chronic (6) Stage II pressure ulcer of buttock ICD Code: L89.302 - Pressure ulcer of unspecified buttock, stage 2 Status: Acute (7) Polysubstance abuse ICD Code: F19.10 - Other psychoactive substance abuse, uncomplicated Status: Chronic (8) Septic discitis of lumbar region ICD Code: M46.46 - Discitis, unspecified, lumbar region Status: Acute (9) Psoas abscess, left ICD Code: K68.12 - Psoas muscle abscess Status: Acute (10) Psoas abscess, left ICD Code: K68.12 - Psoas muscle abscess Assessment and Plan 66-year-old recently hospitalized and treated for L2-L3 discitis, meningitis, MRSA bacteremia, A. fib with RVR, and respiratory failure. Patient has returned from inpatient rehabilitation secondary to recurrence of psoas abscess. Psoas muscle abscess, left (MRSA) Subacute L3-L3 discitis with MRSA bacteremia (bacteremia in previous admission) Subacute Bacterial meningitis - Per ID, Vancomycin until 07/26/2017. - Consulted ID again on 06/22/2017 to provide post hospital infusion orders and appropriate follow ups. - If abx arranged, patient can be discharged today. Atrial fibrillation - Continue digoxin 0.125 mg daily, diltiazem 90 mg by mouth 4 times a day, metoprolol 25 mg every 12 hours (reduced from every 8 hours) - [id number] score 1 (Age) - continue aspirin 81 mg daily. Alcohol abuse History of IV heroin drug abuse History of cocaine abuse - Patient has received counseling. Hepatitis C - outpatient treatment Full code. Lovenox. Discussed with Infectious Disease. Marissa Saxena DO Jun 22, 2017 3:57 pm
[2017-06-22 16:00] VITALS: BP 118/56; PULSE 54; RESP 14; TEMP 96.9; O2SAT 96
--- NOTE | 2017-06-22 17:19 | MB ---
cc: ANABELL ADAMS MD DATE OF CONSULTATION 06/22/[address] Mohini Saxena REASON FOR CONSULTATION Epidural abscess. HISTORY OF PRESENT ILLNESS This is a 66-year-old white male who has been treated for epidural abscess. The patient was previously admitted on May 22 with lower back pain and he was diagnosed with sepsis and spinal epidural abscess due to MRSA. The patient had the epidural abscess involving the L2-L3 disc. He was also treated for sepsis due to MRSA. He was discharged to [facility] on June 09. He was subsequently noted to have a psoas abscess on the left and this was drained on 06/16/2017. He was transferred to [facility] on 06/16 and is currently receiving continued IV antibiotics via a PIC line in the right upper extremity. He is afebrile. He has no chills or shortness of breath. He does note that he gets pain when he ambulates but is moving more except for certain movements causing pain. He sometimes gets occasional pain as high as a 8/10 scale. Otherwise he is alert and he is in no distress. This consultation is requested for antibiotic recommendations and to order antibiotics for discharge to a custodial facility for continued treatment. PAST MEDICAL HISTORY Significant for: 1. Arthritis. 2. Anxiety disorder. 3. Spinal epidural abscess at the L1-L2. 4. MRSA bacteremia. ALLERGIES NO KNOWN DRUG ALLERGIES. MEDICATIONS 1. Vancomycin. 2. Colace. 3. Lovenox. 4. Lactinex. 5. Percocet 5 p.r.n. 6. Aspirin. 7. Celexa. 8. Lanoxin. 9. Folate. 10. Theragran. 11. Protonix. 12. Vitamin B1. 13. Lopressor. 14. Cardizem. SOCIAL HISTORY No tobacco, no alcohol. Positive for substance abuse. REVIEW OF SYSTEMS Significant for pain in the lower back. Otherwise negative on 10-point review. PHYSICAL EXAMINATION GENERAL: This is a slender male who is in no acute distress. He is awake and alert and oriented. VITAL SIGNS: Include temperature 97.3, BP 113/54, respirations 14, heart rate 56. HEENT: The head is atraumatic. Extraocular movements grossly intact, pupils reactive to light. No icterus. Oropharynx moist mucosa without lesions. NECK: Supple without adenopathy. LUNGS: Decreased clear breath sounds throughout. HEART: Regular S1-S2 without murmurs, rubs or gallops. ABDOMEN: Bowel sounds present, soft, nontender. BACK: No tenderness appreciated. RECTAL: Not performed. EXTREMITIES: No clubbing or cyanosis or edema. The patient has a PIC at the right upper extremity which appears intact. SKIN: No rash. NEUROLOGIC: Nonfocal. PSYCHIATRIC: The patient is pleasant, calm and cooperative. LABORATORY DATA WBC 8.3, platelets 326, hemoglobin 9.3, 64% neutrophils, 15% lymphocytes, 60% monocytes. Creatinine 1.83, BUN 17, estimated GFR 37, sodium 133. Vancomycin trough on 06/21 was 19.2. IMPRESSION 1. Epidural abscess due to MRSA. 2. Psoas abscess due to MRSA. Status post drainage. 3. Acute kidney disease with current estimated GFR of 37. RECOMMENDATIONS 1. Discontinue vancomycin in light of the patient's worsening renal function and the DASHAWN to vancomycin being equal to 2.0. 2. Begin daptomycin 300 milligrams IV q 24h and continue IV treatment until July 26, 2017. 3. Follow sedimentation rate and CPK and white blood cell count and kidney function weekly while on antibiotics. 4. Arrange followup with Dr. Kiki Brewer upon discharge from the custodial facility. See also antibiotic instructions written on the infusion form which will be filled out for the patient's IV antibiotics. Thank you for this consultation. The patient is also due to follow up with Dr. Krause from neurology neurosurgery. Anabell Adams MD FD/NIDA /3:08 PM /4:46 PM FROY
[2017-06-22] MEDS: VANCOMYCIN 1,000 MG/NS 250 ML IV SCH ×2 (17:43)
[2017-06-22] MEDS: ENOXAPARIN SODIUM 40 MG/0.4 ML SYRINGE SQ SCH (17:43)
[2017-06-22 20:00] VITALS: BP 130/61; PULSE 53; RESP 18; TEMP 96.5; O2SAT 100
[2017-06-23] VITALS: BP 124/62; PULSE 55; RESP 18; TEMP 96.9; O2SAT 99
[2017-06-23] MEDS: METOPROLOL TARTRATE 25 MG TAB PO SCH ×2 (02:00→12:18)
[2017-06-23] MEDS: oxyCODONE/ACETAMINOPHEN 10 MG/325 MG TAB PO PRN ×3 (02:24→12:59)
[2017-06-23 08:00] VITALS: BP 142/70; PULSE 55; RESP 18; TEMP 96.9; O2SAT 97
[2017-06-23] MEDS: MULTIVITAMIN TAB PO SCH (08:57)
[2017-06-23] MEDS: DOCUSATE SODIUM 100 MG CAP PO SCH (08:57)
[2017-06-23] MEDS: ASPIRIN 81 MG CHEW TAB CHEW SCH (08:58)
[2017-06-23] MEDS: LACTOBACILLUS ACIDOPHILUS TAB PO SCH ×2 (08:58→12:18)
[2017-06-23] MEDS: THIAMINE HCL 100 MG TAB PO SCH (08:58)
[2017-06-23] MEDS: PETROLATUM 49%/ZINC OXIDE 15% 4 OUNCE TUBE TOPICAL SCH (08:58)
[2017-06-23] MEDS: DIGOXIN 0.125 MG TAB PO SCH (08:58)
[2017-06-23] MEDS: FOLIC ACID 1 MG TAB PO SCH (08:58)
[2017-06-23] MEDS: CITALOPRAM HYDROBROMIDE 20 MG TAB PO SCH (08:58)
[2017-06-23] MEDS: PANTOPRAZOLE SOD 20 MG DELAYED RELEASE TAB PO SCH (08:58)
--- NOTE | 2017-06-23 10:05 | HHI.PR ---
Subjective Remarks Follow-up for psoas abscess. Patient is doing well. No acute concerns. No fever , chills. Objective Vitals Vital Signs Date Time Temp Pulse Resp B/P (MAP) Pulse Ox O2 Delivery O2 Flow Rate FiO2 06/23/17 08:00 96.9 55 18 142/70 (94) 97 06/23/17 00:00 96.9 55 18 124/62 (82) 99 06/22/17 20:00 96.5 53 18 130/61 (84) 100 06/22/17 16:00 96.9 54 14 118/56 (76) 96 06/22/17 12:00 97.3 56 14 113/54 (73) 98 06/22/17 11:33 20 I/O 06/22/17 06/22/17 06/22/17 06/23/17 06/23/17 06/23/17 07:00 15:00 23:00 07:00 15:00 23:00 Intake Total 600 ml 1200 ml 360 ml 120 ml Output Total 400 ml 950 ml 450 ml Balance 200 ml 250 ml -90 ml 120 ml Intake Oral 600 ml 1200 ml 360 ml 120 ml Output Urine Total 400 ml 950 ml 450 ml # Voids 2 # Bowel Movements 0 0 Result Diagram: 06/20/17 0506 06/20/17 0506 Objective Remarks GENERAL: Alert, oriented 3, NAD. SKIN: Warm and dry. HEAD: Normocephalic. EYES: No scleral icterus. No injection or drainage. NECK: Supple, trachea midline. No JVD or lymphadenopathy. CARDIOVASCULAR: Regular rate and rhythm without murmurs, gallops, or rubs. RESPIRATORY: Breath sounds equal bilaterally. No accessory muscle use. GASTROINTESTINAL: Abdomen soft, non-tender, nondistended. MUSCULOSKELETAL: No cyanosis, or edema. BACK: Nontender without obvious deformity. No CVA tenderness. Procedures IR Drainage of Left Psoas Muscle Abscess A/P Problem List: (1) Major neurocognitive disorder due to another medical condition ICD Code: F02.80 - Dementia in other diseases classified elsewhere without behavioral disturbance (2) Toxic metabolic encephalopathy ICD Code: G92 - Toxic encephalopathy Status: Acute (3) Decubitus ulcer of buttock, stage 2 ICD Code: L89.302 - Pressure ulcer of unspecified buttock, stage 2 Status: Acute (4) MRSA bacteremia ICD Code: R78.81 - Bacteremia Status: Acute (5) Depression ICD Code: F32.9 - Major depressive disorder, single episode, unspecified Status: Chronic (6) Stage II pressure ulcer of buttock ICD Code: L89.302 - Pressure ulcer of unspecified buttock, stage 2 Status: Acute (7) Polysubstance abuse ICD Code: F19.10 - Other psychoactive substance abuse, uncomplicated Status: Chronic (8) Septic discitis of lumbar region ICD Code: M46.46 - Discitis, unspecified, lumbar region Status: Acute (9) Psoas abscess, left ICD Code: K68.12 - Psoas muscle abscess Status: Acute (10) Psoas abscess, left ICD Code: K68.12 - Psoas muscle abscess Assessment and Plan 66-year-old recently hospitalized and treated for L2-L3 discitis, meningitis, MRSA bacteremia, A. fib with RVR, and respiratory failure. Patient has returned from inpatient rehabilitation secondary to recurrence of psoas abscess. Psoas muscle abscess, left (MRSA) Subacute L3-L3 discitis with MRSA bacteremia (bacteremia in previous admission) Subacute Bacterial meningitis - Per ID, Daptomycin until 07/26/2017. - Consulted ID again on 06/22/2017 to provide post hospital infusion orders and appropriate follow ups. - Likely discharge today. Atrial fibrillation - Continue digoxin 0.125 mg daily, diltiazem 90 mg by mouth 4 times a day, metoprolol 25 mg every 12 hours (reduced from every 8 hours) - [id number] score 1 (Age) - continue aspirin 81 mg daily. Alcohol abuse History of IV heroin drug abuse History of cocaine abuse - Patient has received counseling. Hepatitis C - outpatient treatment Full code. Jorge A. Marissa Saxena DO Jun 23, 2017 10:05
[2017-06-23 12:00] VITALS: BP 143/70; PULSE 58; RESP 19; TEMP 96.9; O2SAT 98
[2017-06-23] MEDS: FERROUS SULFATE 325 MG (65 MG ELEMENTAL IRON) TAB PO SCH (12:18)
[2017-06-23] MEDS: DILTIAZEM HCL 90 MG TAB PO SCH (12:18)
[2017-06-23] MEDS ORDERED: PHARMACY ORDERED LAB ONE (17:45)
== END 2017-06-23 14:43 | DRG 373 ==
LOC: N07B 14:24
PROVIDERS: ADMIT Hospitalist; ATTEND Hospitalist
PROC: 0K9 Muscles, Drainage (ICD-10-PCS; principal; 2017-06-16)
DX: K68.12 Psoas muscle abscess (principal); B95.62 Methicillin resistant Staphylococcus aureus infection as the cause of diseases classified elsewhere; I48.91 Unspecified atrial fibrillation; F41.9 Anxiety disorder, unspecified; B19.20 Unspecified viral hepatitis C without hepatic coma; D64.9 Anemia, unspecified; F10.10 Alcohol abuse, uncomplicated
CPT/HCPCS: 75989; 80048; 80053; 80202; 82948; 85025; 85027; 87070; 87077; 87186; 87205; C1729; C1769; J1650; J3370; J7050

== ENCOUNTER 2017-09-12 18:33 | Inpatient (IN) | payer MEDICARE ==
[~2017-09-12] VITALS: Ht 182.9 cm; Wt 64.0 kg
[~2017-09-12 18:33] MED LIST changes: +Albuterol-Ipratropium Neb NEB; +CELE20TA PO; -CITA20TA4 PO; +FERR325T20 PO; +LACT PO; +METH500T3 PO; -NORC5TAB PO; +OXYC1TAB63 PO; +Petrolat-Zinc Barrier Oint TOPICAL; -ROBA500T PO; -VANC1000P IV
[2017-09-12 19:09] VITALS: BP 152/86; PULSE 93; RESP 16; TEMP 98.6; O2SAT 99
[2017-09-12] MEDS ORDERED: SODIUM CHLORIDE 0.9% FLUSH 10 ML FLUSH IV FLUSH PRN (21:15)
[2017-09-12] MEDS ORDERED: SODIUM CHLOR 0.9% 1000 ML INJ 1,000 ML IV SCH (21:15)
[2017-09-12 22:01] LABS: AUTOMATED NEUTROPHIL # 14.1 TH/MM3 (1.8-7.7); BASOPHIL # 0.1 TH/MM3 (0-0.2); BASOPHIL % 0.4 % (0.0-2.0); EOSINOPHIL # 0.1 TH/MM3 (0-0.4); EOSINOPHIL % 0.3 % (0.0-4.0); HEMOGLOBIN 11.5 GM/DL (13.0-17.0); LYMPH % 12.4 % (9.0-44.0); LYMPHOCYTE # 2.4 TH/MM3 (1.0-4.8); MEAN CELL VOLUME 91.3 FL (80.0-100.0); MEAN CORPUSCULAR HEMOGLOBIN 31.7 PG (27.0-34.0); MEAN CORPUSCULAR HGB CONC 34.7 % (32.0-36.0); MEAN PLATELET VOLUME 8.2 FL (7.0-11.0); MONO % 12.7 % (0.0-8.0); MONOCYTE # 2.4 TH/MM3 (0-0.9); NEUT % 74.2 % (16.0-70.0); PLATELET COUNT 189 TH/MM3 (150-450); RED BLOOD COUNT 3.62 MIL/MM3 (4.50-5.90); RED CELL DISTRIBUTION WIDTH 15.2 % (11.6-17.2)
[2017-09-12 22:11] LABS: INTERNATIONAL NORMALIZED RATIO 1.1 RATIO; PROTHROMBIN TIME - PATIENT 10.9 SEC (9.8-11.6)
[2017-09-12 22:17] LABS: ALBUMIN 3.4 GM/DL (3.4-5.0); AST (GOT) 89 U/L (15-37); BICARBONATE 26.1 MEQ/L (21.0-32.0); BLOOD UREA NITROGEN 29 MG/DL (7-18); CALCIUM 8.9 MG/DL (8.5-10.1); CHLORIDE 102 MEQ/L (98-107); CREATININE 1.48 MG/DL (0.60-1.30); GLOMERULAR FILTRATION RATE 47 ML/MIN (>89); GLUCOSE,RANDOM 134 MG/DL (74-106); SODIUM (NA) 135 MEQ/L (136-145)
[2017-09-12 22:18] LABS: ALT (GPT) 85 U/L (12-78)
[2017-09-12 22:21] LABS: ALKALINE PHOSPHATASE 108 U/L (45-117); TOTAL PROTEIN 7.2 GM/DL (6.4-8.2)
[2017-09-12 22:33] LABS: BACTERIA, URINE RARE /hpf; BILIRUBIN, URINE NEG (NEG); BLOOD, URINE TRACE (NEG); GLUCOSE,URINE NEG (NEG); KETONE, URINE NEG (NEG); MUCUS URINE FEW /lpf (OCC); NITRITE,URINE NEG (NEG); PH, URINE 5.5 (5.0-8.5); SQUAMOUS EPITHELIAL CELL URINE <1 /hpf (0-5); URINE COLOR YELLOW (YELLW/STRAW); URINE LEUKOCYTE ESTERASE SMALL (NEG)
[2017-09-12] MEDS ORDERED: CEFEPIME INJ 2,000 MG in SODIUM CHLORIDE 0.9% INJ 100 ML IV ONE (22:45)
[2017-09-12] MEDS ORDERED: CLINDAMYCIN 600 MG/NS PREMIX 50 ML IV ONE (22:45)
[2017-09-12] MEDS ORDERED: VANCOMYCIN INJ 1,750 MG in SODIUM CHLORID 0.9% 500 ML INJ 500 ML IV ONE (22:45)
--- NOTE | 2017-09-12 22:54 | PD ---
HPI Chief Complaint: Pain: Acute or Chronic Time Seen by Provider: 20:54 Travel History International Travel<30 days: No Contact w/Intl Traveler<30days: No Traveled to known affect area: No History of Present Illness HPI 66-year-old male presents emergency department for evaluation of worsening back pain that has occurred over the last several days. Says he had 'bad legs' with trouble walking this morning and decided to come into the ED today. Patient is a poor historian but states that he was here May 22 for MRSA of the low back. Says he was admitted and then went to rehab for approximately 1 month. Says he has been following up with a neurologist and infectious disease. Says he followed up with infectious disease physician approximately 2 weeks ago and had "normal labs" and was due to follow-up with labs Thursday with an MRI on Thursday. Patient says that he went to his primary care physician Dr. Hwang' s office on Thursday for reevaluation of his pain medication and he was placed on tramadol in lieu of Percocet. States this medication has not helped with his low back pain and did try to call his primary care physician this morning but was unable to get ahold of them. As a side, patient states that he has some right flank pain that radiates to the groin but is not extremely concerned about this pain. He does not characterize this pain further. Denies fever, chills, loss of bowel or bladder function, weakness, saddle anesthesia, cancer, recent IV drug use. States last time he used IV drugs was in May 2017. PFSH Past Medical History Arthritis: Yes Asthma: No Atrial Fibrillation: Yes Autoimmune Disease: No Anxiety: Yes Depression: Yes Heart Rhythm Problems: Yes Cancer: No Cardiovascular Problems: No Chemotherapy: No Chest Pain: No Congestive Heart Failure: No COPD: No Cerebrovascular Accident: No Diabetes: No Diminished Hearing: No Endocrine: No GERD: No Genitourinary: No Hiatal Hernia: No Hypertension: Yes Immune Disorder: No Kidney Stones: No Musculoskeletal: No Neurologic: No Psychiatric: Yes Reproductive: No Respiratory: No Immunizations Current: Yes Migraines: No Radiation Therapy: No Renal Failure: Yes Seizures: No Sickle Cell Disease: No Sleep Apnea: No Thyroid Disease: No Ulcer: No Tetanus Vaccination: < 5 Years Influenza Vaccination: Yes Past Surgical History Surgical History: No Previous Surgery Abdominal Surgery: No AICD: No Arteriovenous Shunt: No Cardiac Surgery: No Ear Surgery: No Endocrine Surgery: No Eye Surgery: No Genitourinary Surgery: No Gynecologic Surgery: No Insulin Pump: No Joint Replacement: No Oral Surgery: No Pacemaker: No Thoracic Surgery: No Social History Alcohol Use: Yes (DAILY) Tobacco Use: No Substance Use: Yes (cocaine and heroin) Allergies-Medications (Allergen,Severity, Reaction): Coded Allergies: No Known Allergies (Unverified Allergy, Unknown, 09/12/17) Reported Meds & Prescriptions Reported Meds & Active Scripts Active Acidophilus/l-Sporogenes (Lactobacillus Acidophilus) 35 Million Cell-25 Million Cell Tab 1 Tab PO TID Oxycodone-Acetaminophen 5-325 (Oxycodone HCl/Acetaminophen) 5 Mg-325 Mg Tablet 1 Tab PO Q6H PRN Methocarbamol 500 Mg Tab 500 Mg PO TID PRN Thera Tablet (Multivitamin with Folic Acid) 400 Mcg Tablet 1 Tab PO DAILY 30 Days Gnp Vitamin B-1 (Thiamine HCl) 100 Mg Tab 100 Mg PO DAILY 30 Days Folic Acid 1 Mg Tablet 1 Mg PO DAILY 30 Days Protonix (Pantoprazole Sodium) 20 Mg Tab 20 Mg PO DAILY 30 Days [Petrolat-Zinc Barrier Oint] 120 APPLIC/120 GM Oint 1 Applic TOPICAL BID 30 Days Celexa (Citalopram Hydrobromide) 20 Mg Tab 20 Mg PO DAILY 30 Days Diltiazem (Diltiazem HCl) 90 Mg Tab 90 Mg PO QID 30 Days Metoprolol Tartrate 25 Mg Tab 25 Mg PO Q8HR 30 Days Digoxin 0.125 Mg Tab 0.125 Mg PO DAILY 30 Days Ferosul (Ferrous Sulfate) 325 Mg (65 Mg Iron) Tablet 325 Mg PO BID@12,17 30 Days [Albuterol-Ipratropium Neb] 1 AMPULE Nebu 1 Ampule NEB Q4HR NEB PRN 30 Days Tgt Aspirin (Aspirin) 81 Mg Chw 81 Mg CHEW DAILY Review of Systems Except as stated in HPI: all other systems reviewed are Neg Physical Exam Narrative GENERAL: WD, WN in NAD SKIN: Focused skin assessment warm/dry. HEAD: Atraumatic. Normocephalic. EYES: Pupils equal and round. No scleral icterus. No injection or drainage. ENT: No nasal bleeding or discharge. Mucous membranes pink and moist. NECK: Trachea midline. No JVD. No lymphadenopathy CARDIOVASCULAR: Regular rate and rhythm. No murmur appreciated. RESPIRATORY: No accessory muscle use. Clear to auscultation. Breath sounds equal bilaterally. GASTROINTESTINAL: Abdomen soft, non-tender, nondistended. Hepatic and splenic margins not palpable. MUSCULOSKELETAL: No obvious deformities. No clubbing. No cyanosis. No edema. BACK: No CVA tenderness. No rash. No point tenderness on palpation of the spine. No erythema. NEUROLOGICAL: Awake and alert. No obvious cranial nerve deficits. Motor grossly within normal limits. Normal speech. Bilateral lower extremities-grade 5/5 strength, DTRs 2+, Homans sign negative, neurovascularly intact PSYCHIATRIC: Appropriate mood and affect; insight and judgment normal. Data Data Last Documented VS Vital Signs Date Time Temp Pulse Resp B/P (MAP) Pulse Ox O2 Delivery O2 Flow Rate FiO2 09/13/17 02:00 95 16 165/94 (117) 98 Room Air 09/12/17 19:09 98.6 Orders Orders Complete Blood Count With Diff (09/12/17 21:15) Comprehensive Metabolic Panel (09/12/17 21:15) Prothrombin Time / Inr (Pt) (09/12/17 21:15) Act Partial Throm Time (Ptt) (09/12/17 21:15) Urinalysis - C+S If Indicated (09/12/17 21:15) Ct Abd/Pel W/O Iv Contrast (09/12/17 21:15) Iv Access Insert/Monitor (09/12/17 21:15) Ecg Monitoring (09/12/17 21:15) Oximetry (09/12/17 21:15) Sodium Chlor 0.9% 1000 Ml Inj (Ns 1000 M (09/12/17 21:15) Sodium Chloride 0.9% Flush (Ns Flush) (09/12/17 21:15) Electrocardiogram (09/12/17 ) Lactic Acid Sepsis Protocol (09/12/17 22:33) Blood Culture (09/12/17 22:33) Mri L Spine W&W/O Contrast (09/12/17 ) Mri T Spine W & W/O Contrast (09/12/17 ) Vancomycin Inj (Vancomycin Inj) (09/12/17 22:45) Clindamycin 600 Mg/Ns Premix (Cleocin 60 (09/12/17 22:45) Cefepime Inj (Maxipime Inj) (09/12/17 22:45) Morphine Inj (Morphine Inj) (09/12/17 23:30) Gadodiamide Pf Inj (Omniscan Pf Inj) (09/13/17 00:30) Oxycodone-Acetamin 5-325 Mg (Percocet (09/13/17 01:15) Alprazolam (Xanax) (09/13/17 02:00) Admit Order (Ed Use Only) (09/13/17 ) Labs Laboratory Tests Test 09/12/17 21:20 09/12/17 21:30 09/12/17 22:40 White Blood Count 19.0 TH/MM3 Red Blood Count 3.62 MIL/MM3 Hemoglobin 11.5 GM/DL Hematocrit 33.0 % Mean Corpuscular Volume 91.3 FL Mean Corpuscular Hemoglobin 31.7 PG Mean Corpuscular Hemoglobin Concent 34.7 % Red Cell Distribution Width 15.2 % Platelet Count 189 TH/MM3 Mean Platelet Volume 8.2 FL Neutrophils (%) (Auto) 74.2 % Lymphocytes (%) (Auto) 12.4 % Monocytes (%) (Auto) 12.7 % Eosinophils (%) (Auto) 0.3 % Basophils (%) (Auto) 0.4 % Neutrophils # (Auto) 14.1 TH/MM3 Lymphocytes # (Auto) 2.4 TH/MM3 Monocytes # (Auto) 2.4 TH/MM3 Eosinophils # (Auto) 0.1 TH/MM3 Basophils # (Auto) 0.1 TH/MM3 CBC Comment DIFF FINAL Differential Comment Prothrombin Time 10.9 SEC Prothromb Time International Ratio 1.1 RATIO Activated Partial Thromboplast Time 35.7 SEC Blood Urea Nitrogen 29 MG/DL Creatinine 1.48 MG/DL Random Glucose 134 MG/DL Total Protein 7.2 GM/DL Albumin 3.4 GM/DL Calcium Level 8.9 MG/DL Alkaline Phosphatase 108 U/L Aspartate Amino Transf (AST/SGOT) 89 U/L Alanine Aminotransferase (ALT/SGPT) 85 U/L Total Bilirubin 1.0 MG/DL Sodium Level 135 MEQ/L Potassium Level 3.4 MEQ/L Chloride Level 102 MEQ/L Carbon Dioxide Level 26.1 MEQ/L Anion Gap 7 MEQ/L Estimat Glomerular Filtration Rate 47 ML/MIN Urine Color YELLOW Urine Turbidity HAZY Urine pH 5.5 Urine Specific [place] 1.031 Urine Protein 30 mg/dL Urine Glucose (UA) NEG mg/dL Urine Ketones NEG mg/dL Urine Occult Blood TRACE Urine Nitrite NEG Urine Bilirubin NEG Urine Urobilinogen 2.0 MG/DL Urine Leukocyte Esterase SMALL Urine RBC 6 /hpf Urine WBC 6 /hpf Urine Squamous Epithelial Cells <1 /hpf Urine Bacteria RARE /hpf Urine Mucus FEW /lpf Microscopic Urinalysis Comment CULT NOT INDICATED Lactic Acid Level 0.7 mmol/L MDM Medical Decision Making Medical Screen Exam Complete: Yes Emergency Medical Condition: Yes Differential Diagnosis Epidural abscess, urinary tract infection, pyelonephritis, sepsis Narrative Course 66-year-old male presents emergency department for evaluation of worsening back pain that has occurred over the last several days. Says he had 'bad legs' with trouble walking this morning and decided to come into the ED today. Patient is a poor historian but states that he was here May 22 for MRSA of the low back. Says he was admitted and then went to rehab for approximately 1 month. Says he has been following up with a neurologist and infectious disease. Says he followed up with infectious disease physician approximately 2 weeks ago and had "normal labs" and was due to follow-up with labs Thursday with an MRI on Thursday. Patient says that he went to his primary care physician Dr. Hwang' s office on Thursday for reevaluation of his pain medication and he was placed on tramadol in lieu of Percocet. States this medication has not helped with his low back pain and did try to call his primary care physician this morning but was unable to get ahold of them. As a side, patient states that he has some right flank pain that radiates to the groin but is not extremely concerned about this pain. He does not characterize this pain further. Denies fever, chills, loss of bowel or bladder function, weakness, saddle anesthesia, cancer, recent IV drug use. States last time he used IV drugs was in May 2017. vital signs stable. Labs and imaging studies ordered. Review the EMR: Patient had an epidural abscess and psoas abscess that required admission with IV antibiotic use. Staph aureus abscess. Patient had a Pseudomonas urinary tract infection in May 2017. After initial labs returned, initiated sepsis workup. Pt will receive vancomycin , clindamycin for abscess coverage, based off of previous C&S. Cefepime for UTI/ potential pseudomonas UTI, based off of previous C&S. Abdominal CT suggestive of acute process along lumbar spine. Lumbar and Thoracic MRI ordered. Imaging pending as of transfer of care to Dr. Padilla. Condition: Stable Jeanne Heard Sep 12, 2017 22:54
--- NOTE | 2017-09-12 23:06 | RADRPT ---
EXAM DATE/TIME: 09/12/2017 22:42 [facility] COMPARISON: CT LUMBAR SPINE W CONTRAST, June 05, 2017, 8:45. CT THORACIC SPINE W CONTRAST, June 05, 2017 , 8:45. INDICATIONS : Right flank and groin pain. History of paraspinal abscess. ORAL CONTRAST: No oral contrast ingested. RADIATION DOSE: 5.98 CTDIvol (mGy) MEDICAL HISTORY : Cardiovascular disease. Hypertension. Hepatitis C.Renal failure Substance abuse SURGICAL HISTORY : None. ENCOUNTER: Initial ACUITY: 1 day PAIN SCALE: 10/10 LOCATION: Right flank TECHNIQUE: Volumetric scanning of the abdomen and pelvis was performed. Using automated exposure control and ad justment of the mA and/or kV according to patient size, radiation dose was kept as low as reasonably achievable to obtain optimal diagnostic quality images. DICOM format image data is available electro nically for review and comparison. FINDINGS: LOWER LUNGS: The visualized lower lungs are clear. LIVER: Homogeneous density without lesion. There is no dilation of the biliary tree. No calcified gallston es. SPLEEN: Normal size without lesion. PANCREAS: Within normal limits. KIDNEYS: Normal in size and shape. There is no mass, stone, or hydronephrosis. ADRENAL GLANDS: Within normal limits. VASCULAR: There is no aortic aneurysm. BOWEL/MESENTERY: There are colonic diverticula without inflammatory change. ABDOMINAL WALL: Within normal limits. RETROPERITONEUM: There is hazy density seen in the retroperitoneum surrounding the aorta and IVC at the level of the u pper lumbar spine in the region of the destructive endplate changes. Retroperitoneal adenopathy is se en. There is inflammatory change extending into the left pelvic sidewall. BLADDER: No wall thickening or mass. REPRODUCTIVE: Within normal limits. INGUINAL: There is no lymphadenopathy or hernia. MUSCULOSKELETAL: There is progressive destruction at the L2-L3 and L3at L4 disc spaces. There is increased density in the paraspinous and psoas regions in this area. There is some endplate changes seen at the left L1-L2 level. CONCLUSION: Progressive endplate and vertebral body destruction at the L2-L3 and L3-L4 levels with increased soft tissue density in the paraspinous regions and retroperitoneum with adenopathy all concerning for on going infection and discitis. The patient is scheduled for MRI examinations of the thoracic and lumba r spines. Giovanni Gomez MD on September 12, 2017 at 22:57 Board Certified Radiologist. This report was verified electronically.
[2017-09-12] MEDS ORDERED: MORPHINE SULFATE 2 MG/ML SYRINGE IV PUSH ONE (23:30)
[2017-09-13] VITALS (9 sets, daily range): BP systolic 119–170; BP diastolic 59–94; PULSE 67–95; RESP 16–18; TEMP 97.8–100; O2SAT 97–99
[2017-09-13] MEDS ORDERED: GADODIAMIDE PF 287 MG/ML 5 ML VIAL (for RAD MRI) IVCONTRAST ONE (00:30)
--- NOTE | 2017-09-13 00:53 | RADRPT ---
EXAM DATE/TIME: 09/13/2017 00:02 [facility] COMPARISON: MRI THORACIC SPINE W & W/O CONTRAST, May 24, 2017, 9:12. INDICATIONS : Abscess. Back pain. CONTRAST: 13 cc Omniscan (gadodiamide) IV MEDICAL HISTORY : IVDU SURGICAL HISTORY : Drain in lumbar area for prior abscess. ENCOUNTER: Subsequent ACUITY: 1 day PAIN SCORE: 8/10 LOCATION: back. TECHNIQUE: Multiplanar multisequence MRI of the thoracic spine was performed. FINDINGS: VERTEBRA: Normal vertebral body height. Homogeneous marrow signal. ALIGNMENT: Normal. CORD: Normal position and configuration. POST CONTRAST: No abnormal areas of contrast enhancement seen. Minimal disc bulges at T3-4, T7-8, T8-9, T9-T10, and T10-11. Central canal diameter within normal villa its at all levels. Neural foraminal diameters within normal limits at all levels. CONCLUSION: No significant interval change. No evidence of abscess in the thoracic spine region. Scott Morfin MD on September 13, 2017 at 0:48 Board Certified Radiologist. This report was verified electronically.
[2017-09-13] MEDS ORDERED: oxyCODONE/ACETAMINOPHEN 5 MG/325 MG TAB PO ONE (01:15)
--- NOTE | 2017-09-13 01:18 | RADRPT ---
EXAM DATE/TIME: 09/13/2017 00:02 [facility] COMPARISON: MRI LUMBAR SPINE W & W/O CONTRAST, June 12, 2017, 16:15. INDICATIONS : Abscess. Back pain. CONTRAST: 13 cc Omniscan (gadodiamide) IV MEDICAL HISTORY : IVDU. SURGICAL HISTORY : Drain in lumbar area for prior abscess. ENCOUNTER: Subsequent ACUITY: 1 day PAIN SCORE: 8/10 LOCATION: low back. TECHNIQUE: Multiplanar multisequence MRI of the lumbar spine was performed with and without contrast. FINDINGS: Ill-defined bony edema and enhancement is again identified in the lumbar spine from the inferior endp late of L1to the superior half of L4 with paravertebral soft tissue enhancement circumferentially at these levels. There is also circumferential soft tissue enhancement about the thecal sac from L1-2 t o L3-4. Nonenhancing fluid is again seen within the L1-2, L2-3, and L3-4 discs indicating discitis. T he nonenhancing fluid component of epidural abscess L2-3 anterior to the thecal sac is less prominent than on the comparison study. However the thickness of the enhancing soft tissue at the anterior asp ect of the thecal sac is more prominent resulting in increased severity of central canal narrowing at L2-3. Thecal sac measures 4 mm in AP diameter at this level. There is increased circumferential enha ncement about the thecal sac at L3-4 resulting in mild central canal narrowing. Thecal sac measures 7 mm in AP dimension at this level. There is also increased size in contiguous left-sided psoas abscess, now measuring 2.9 x 1.3 cm in ax ial dimensions compared to 2.1 x 1.1 cm on the prior study. There is also now a right-sided psoas abs cess at L2-3 level measuring 1.7 x 0.9 cm on the axial images. Conus medullaris within normal limits. L4-5 and L5-S1 levels are unchanged. CONCLUSION: Evidence of osteomyelitis/discitis of the lumbar spine again seen. The defined anterior epidural flui d collection/abscess at L2-3 has decreased in size. However the ill-defined circumferential epidural soft tissue enhancement has increased in severity and extent. This results in increased central canal stenosis, most severe at L2-3. Slight increase in size of left psoas abscess and new small right pso as abscess also noted. Scott Morfin MD on September 13, 2017 at 1:03 Board Certified Radiologist. This report was verified electronically.
--- NOTE | 2017-09-13 01:45 | PD ---
Physical Exam Narrative I, Dr. Padilla, have reviewed the advance practice practitioner's documentation and am in agreement, met with the patient face to face, made the diagnosis, and the medical decision making was done by me. *My assessment and Findings: Patient is a 66 year old male who comes in complaining of back pain. He has history of discitis and psoas muscle abscess. He completed a long coarse of antibiotics about 1-2 weeks ago. He is moving his lower extremities without issue. Data Data Last Documented VS Vital Signs Date Time Temp Pulse Resp B/P (MAP) Pulse Ox O2 Delivery O2 Flow Rate FiO2 09/13/17 02:00 95 16 165/94 (117) 98 Room Air 09/12/17 19:09 98.6 Orders Orders Complete Blood Count With Diff (09/12/17 21:15) Comprehensive Metabolic Panel (09/12/17 21:15) Prothrombin Time / Inr (Pt) (09/12/17 21:15) Act Partial Throm Time (Ptt) (09/12/17 21:15) Urinalysis - C+S If Indicated (09/12/17 21:15) Ct Abd/Pel W/O Iv Contrast (09/12/17 21:15) Iv Access Insert/Monitor (09/12/17 21:15) Ecg Monitoring (09/12/17 21:15) Oximetry (09/12/17 21:15) Sodium Chlor 0.9% 1000 Ml Inj (Ns 1000 M (09/12/17 21:15) Sodium Chloride 0.9% Flush (Ns Flush) (09/12/17 21:15) Electrocardiogram (09/12/17 ) Lactic Acid Sepsis Protocol (09/12/17 22:33) Blood Culture (09/12/17 22:33) Mri L Spine W&W/O Contrast (09/12/17 ) Mri T Spine W & W/O Contrast (09/12/17 ) Vancomycin Inj (Vancomycin Inj) (09/12/17 22:45) Clindamycin 600 Mg/Ns Premix (Cleocin 60 (09/12/17 22:45) Cefepime Inj (Maxipime Inj) (09/12/17 22:45) Morphine Inj (Morphine Inj) (09/12/17 23:30) Gadodiamide Pf Inj (Omniscan Pf Inj) (09/13/17 00:30) Oxycodone-Acetamin 5-325 Mg (Percocet (09/13/17 01:15) Alprazolam (Xanax) (09/13/17 02:00) Admit Order (Ed Use Only) (09/13/17 ) Labs Laboratory Tests Test 09/12/17 21:20 09/12/17 21:30 09/12/17 22:40 White Blood Count 19.0 TH/MM3 Red Blood Count 3.62 MIL/MM3 Hemoglobin 11.5 GM/DL Hematocrit 33.0 % Mean Corpuscular Volume 91.3 FL Mean Corpuscular Hemoglobin 31.7 PG Mean Corpuscular Hemoglobin Concent 34.7 % Red Cell Distribution Width 15.2 % Platelet Count 189 TH/MM3 Mean Platelet Volume 8.2 FL Neutrophils (%) (Auto) 74.2 % Lymphocytes (%) (Auto) 12.4 % Monocytes (%) (Auto) 12.7 % Eosinophils (%) (Auto) 0.3 % Basophils (%) (Auto) 0.4 % Neutrophils # (Auto) 14.1 TH/MM3 Lymphocytes # (Auto) 2.4 TH/MM3 Monocytes # (Auto) 2.4 TH/MM3 Eosinophils # (Auto) 0.1 TH/MM3 Basophils # (Auto) 0.1 TH/MM3 CBC Comment DIFF FINAL Differential Comment Prothrombin Time 10.9 SEC Prothromb Time International Ratio 1.1 RATIO Activated Partial Thromboplast Time 35.7 SEC Blood Urea Nitrogen 29 MG/DL Creatinine 1.48 MG/DL Random Glucose 134 MG/DL Total Protein 7.2 GM/DL Albumin 3.4 GM/DL Calcium Level 8.9 MG/DL Alkaline Phosphatase 108 U/L Aspartate Amino Transf (AST/SGOT) 89 U/L Alanine Aminotransferase (ALT/SGPT) 85 U/L Total Bilirubin 1.0 MG/DL Sodium Level 135 MEQ/L Potassium Level 3.4 MEQ/L Chloride Level 102 MEQ/L Carbon Dioxide Level 26.1 MEQ/L Anion Gap 7 MEQ/L Estimat Glomerular Filtration Rate 47 ML/MIN Urine Color YELLOW Urine Turbidity HAZY Urine pH 5.5 Urine Specific [place] 1.031 Urine Protein 30 mg/dL Urine Glucose (UA) NEG mg/dL Urine Ketones NEG mg/dL Urine Occult Blood TRACE Urine Nitrite NEG Urine Bilirubin NEG Urine Urobilinogen 2.0 MG/DL Urine Leukocyte Esterase SMALL Urine RBC 6 /hpf Urine WBC 6 /hpf Urine Squamous Epithelial Cells <1 /hpf Urine Bacteria RARE /hpf Urine Mucus FEW /lpf Microscopic Urinalysis Comment CULT NOT INDICATED Lactic Acid Level 0.7 mmol/L MDM Supervised Visit with BIB: Yes Narrative Course MRI shows worsening discitis and psoas muscle abscesses. Given antibiotics and pain medicine. Dr. Freeman of neurosurgery consulted, suggests medical management. Admitted for further management. Diagnosis Primary Impression: Septic discitis of lumbar region Additional Impression: Psoas abscess Admitting Information Admitting Physician Requests: Admit Condition: Stable Luz Padilla MD Sep 13, 2017 01:45
[2017-09-13] MEDS ORDERED: ALPRAZolam 0.5 MG TAB PO ONE (02:00)
[2017-09-13] MEDS ORDERED: ACETAMINOPHEN/HYDROcodone 325 MG/5 MG TAB PO PRN (02:30)
[2017-09-13] MEDS ORDERED: LACTULOSE SYRUP 20 GM/30 ML CUP PO PRN (02:30)
[2017-09-13] MEDS ORDERED: Vancomycin Consult Pharmacy 1 EA OTHER SCH (02:30)
[2017-09-13] MEDS ORDERED: ONDANSETRON HCL 4 MG/2 ML VIAL IVP PRN (02:30)
[2017-09-13] MEDS ORDERED: ACETAMINOPHEN 325 MG TAB PO PRN (02:30)
[2017-09-13] MEDS ORDERED: BISACODYL 10 MG SUPP RECTAL PRN (02:30)
[2017-09-13] MEDS ORDERED: MAGNESIUM HYDROXIDE SUSP 30 ML CUP PO PRN (02:30)
[2017-09-13] MEDS ORDERED: RESP: ALBUTEROL 2.5 MG/IPRATROPIUM 0.5 MG NEB (PRN) NEB (03:00)
[2017-09-13] MEDS: SODIUM CHLOR 0.9% 1000 ML INJ 1,000 ML IV SCH ×3 (03:50→15:34)
--- NOTE | 2017-09-13 04:09 | HHI.HP ---
[facility] Quan Hwang, DO Admission Diagnosis discitis, psoas muscle abscess Diagnoses: (1) Discitis of lumbar region Diagnosis: Principal (2) Psoas abscess Diagnosis: Principal (3) Intractable pain Diagnosis: Principal (4) Renal insufficiency Diagnosis: Principal (5) IVDU (intravenous drug user) Diagnosis: Principal (6) A-fib Diagnosis: Principal Travel History International Travel<30 Days: No Contact w/Intl Traveler <30 Da: No Traveled to Known Affected Are: No History of Present Illness This is a 66-year-old male with a PMH of Anxiety, Depression, IVDU and h/o L- Spine Discitis w/ Psoas Abscess who presented to the ER w/ complaints of severe back pain x1 wk. Notes pain is constant, severe, 10/10, worse w/ movement, radiation down right leg. Denies incontinence or weakness. Previous admit 2017 w/ prolonged hospitalization for L-Spine Discitis and Left Psoas Abscess s/ p CT-guided drainage, followed by Dr. Hernandez and Dr. Krause. States he completed antibiotics recently and was seen by ID approx 2wks ago w/ normal lab work. Presented to PCP's office earlier this week for pain complaints and given Tramadol which he states has given him no relief, was told to return to office on Thursday, however states pain was too severe and decided to come to the ER. Denies fever, chills, chest pain or cough. Denies recent IVDU, last use was May 2017. On arrival, BP 152/86, HR 93, O2 sat 99% RA, Afebrile. WBC 19.0. Chemistry essentially at baseline. LFTs mildly elevated in comparison to previous labs from 06/20/2017. INR 1.1. UA with small LE, mild bacteriuria. CT Abdomen/Pelvis with progressive endplate and vertebral body destruction at L2-L3 and L3-L4 with increased soft tissue density paraspinous regions and retroperitoneum with adenopathy concerning for ongoing infection and discitis. MRI T-spine with no significant change, no evidence of abscess in thoracic spine region. MRI L-spine with evidence of osteomyelitis/discitis of lumbar spine, L2-L3 collection decreased in size however epidural soft tissue enhancement has increased in severity and extent, with increased central canal stenosis. Slight increase in size of left psoas abscess and new small right psoas abscess. s/p Blood Cultures and Vanco/Clinda/Cefepime in ER. Review of Systems Except as stated in HPI: all other systems reviewed are Neg ROS: 14 point review of systems otherwise negative. Past Family Social History Past Medical History PMH: Anxiety, Depression, IVDU and h/o L-Spine Discitis w/ Psoas Abscess Past Surgical History PAST SURGICAL HISTORY: None Allergies: Coded Allergies: No Known Allergies (Unverified Allergy, Unknown, 09/12/17) Family History PAST FAMILY HISTORY: Reviewed. No h/o DM or CAD Social History PAST SOCIAL HISTORY: Positive for alcohol. Negative for tobacco. +IVDU w/ Cocaine and Heroin, denies recent use. Physical Exam Vital Signs Vital Signs Date Time Temp Pulse Resp B/P (MAP) Pulse Ox O2 Delivery O2 Flow Rate FiO2 09/13/17 03:10 09/13/17 02:00 95 16 165/94 (117) 98 Room Air 09/13/17 00:55 90 16 170/90 (116) 97 Room Air 09/12/17 19:09 98.6 93 16 152/86 (108) 99 Physical Exam GENERAL: This is a well-nourished, well-developed patient, in no apparent distress. SKIN: No rashes, ecchymoses or lesions. Cool and dry. HEAD: Atraumatic. Normocephalic. No temporal or scalp tenderness. EYES: Pupils equal round and reactive. Extraocular motions intact. No scleral icterus. No injection or drainage. ENT: Nose without bleeding, purulent drainage or septal hematoma. Throat without erythema, tonsillar hypertrophy or exudate. Uvula midline. Airway patent. NECK: Trachea midline. No JVD or lymphadenopathy. Supple, nontender, no meningeal signs. CARDIOVASCULAR: Regular rate and rhythm without murmurs, gallops, or rubs. RESPIRATORY: Clear to auscultation. Breath sounds equal bilaterally. No wheezes , rales, or rhonchi. GASTROINTESTINAL: Abdomen soft, non-tender, nondistended. No hepato-splenomegaly , or palpable masses. No guarding. MUSCULOSKELETAL: Extremities without clubbing, cyanosis, or edema. No joint tenderness, effusion, or edema noted. No calf tenderness. Negative Homans sign bilaterally. NEUROLOGICAL: Awake and alert. Cranial nerves II through XII intact. Motor and sensory grossly within normal limits. Five out of 5 muscle strength in all muscle groups. Normal speech. Laboratory Laboratory Tests Test 09/12/17 21:20 09/12/17 21:30 09/12/17 22:40 White Blood Count 19.0 Red Blood Count 3.62 Hemoglobin 11.5 Hematocrit 33.0 Mean Corpuscular Volume 91.3 Mean Corpuscular Hemoglobin 31.7 Mean Corpuscular Hemoglobin Concent 34.7 Red Cell Distribution Width 15.2 Platelet Count 189 Mean Platelet Volume 8.2 Neutrophils (%) (Auto) 74.2 Lymphocytes (%) (Auto) 12.4 Monocytes (%) (Auto) 12.7 Eosinophils (%) (Auto) 0.3 Basophils (%) (Auto) 0.4 Neutrophils # (Auto) 14.1 Lymphocytes # (Auto) 2.4 Monocytes # (Auto) 2.4 Eosinophils # (Auto) 0.1 Basophils # (Auto) 0.1 CBC Comment DIFF FINAL Differential Comment Prothrombin Time 10.9 Prothromb Time International Ratio 1.1 Activated Partial Thromboplast Time 35.7 Blood Urea Nitrogen 29 Creatinine 1.48 Random Glucose 134 Total Protein 7.2 Albumin 3.4 Calcium Level 8.9 Alkaline Phosphatase 108 Aspartate Amino Transf (AST/SGOT) 89 Alanine Aminotransferase (ALT/SGPT) 85 Total Bilirubin 1.0 Sodium Level 135 Potassium Level 3.4 Chloride Level 102 Carbon Dioxide Level 26.1 Anion Gap 7 Estimat Glomerular Filtration Rate 47 Urine Color YELLOW Urine Turbidity HAZY Urine pH 5.5 Urine Specific [place] 1.031 Urine Protein 30 Urine Glucose (UA) NEG Urine Ketones NEG Urine Occult Blood TRACE Urine Nitrite NEG Urine Bilirubin NEG Urine Urobilinogen 2.0 Urine Leukocyte Esterase SMALL Urine RBC 6 Urine WBC 6 Urine Squamous Epithelial Cells <1 Urine Bacteria RARE Urine Mucus FEW Microscopic Urinalysis Comment CULT NOT INDICATED Lactic Acid Level 0.7 Date/Time Source Procedure Growth Status 09/12/17 22:40 Blood Peripheral Aerobic Blood Culture Pending Received 09/12/17 22:40 Blood Peripheral Anaerobic Blood Culture Pending Received Result Diagram: 09/12/17211909/12/172119 Caprini VTE Risk Assessment Caprini VTE Risk Assessment: No/Low Risk (score <= 1) Caprini Risk Assessment Model Point Value = 1 Point Value = 2 Point Value = 3 Point Value = 5 Age 41-60 Minor surgery BMI > 25 kg/m2 Swollen legs Varicose veins or History of unexplained or recurrent spontaneous Oral contraceptives or hormone replacement Sepsis (< 1 month) Serious lung disease, including pneumonia (< 1 month) Abnormal pulmonary function Acute myocardial infarction Congestive heart failure (< 1 month) History of inflammatory bowel disease Medical patient at bed rest Age 61-74 Arthroscopic surgery Major open surgery (> 45 min) Laparoscopic surgery (> 45 min) Malignancy Confined to bed (> 72 hours) Immobilizing plaster cast Central venous access Age >= 75 History of VTE Family history of VTE Factor V Leiden Prothrombin [id number] Lupus anticoagulant Anticardiolipin antibodies Elevated serum homocysteine Heparin-induced thrombocytopenia Other congenital or acquired thrombophilia Stroke (< 1 month) Elective arthroplasty Hip, pelvis, or leg fracture Acute spinal cord injury (< 1 month) Prophylaxis Regimen Total Risk Factor Score Risk Level Prophylaxis Regimen 0-1 Low Early ambulation 2 Moderate Order ONE of the following: *Sequential Compression Device (SCD) *Heparin 5000 units SQ BID 3-4 Higher Order ONE of the following medications: *Heparin 5000 units SQ TID *Enoxaparin/Lovenox 40 mg SQ daily (WT < 150 kg, CrCl > 30 mL/min) *Enoxaparin/Lovenox 30 mg SQ daily (WT < 150 kg, CrCl > 10-29 mL/min) *Enoxaparin/Lovenox 30 mg SQ BID (WT < 150 kg, CrCl > 30 mL/min) AND/OR *Sequential Compression Device (SCD) 5 or more Highest Order ONE of the following medications: *Heparin 5000 units SQ TID (Preferred with Epidurals) *Enoxaparin/Lovenox 40 mg SQ daily (WT < 150 kg, CrCl > 30 mL/min) *Enoxaparin/Lovenox 30 mg SQ daily (WT < 150 kg, CrCl > 10-29 mL/min) *Enoxaparin/Lovenox 30 mg SQ BID (WT < 150 kg, CrCl > 30 mL/min) AND *Sequential Compression Device (SCD) Assessment and Plan Problem List: (1) Discitis of lumbar region ICD Code: M46.46 - Discitis, unspecified, lumbar region (2) Psoas abscess ICD Code: K68.12 - Psoas muscle abscess (3) Intractable pain ICD Code: R52 - Pain, unspecified (4) Renal insufficiency ICD Code: N28.9 - Disorder of kidney and ureter, unspecified (5) A-fib ICD Code: I48.91 - Unspecified atrial fibrillation (6) IVDU (intravenous drug user) ICD Code: F19.90 - Other psychoactive substance use, unspecified, uncomplicated Assessment and Plan A/P: 1. L-Spine Discitis/Osteomyelitis: Recurrent. H/o similar findings 06/2017, s/ p eval by ID and Dr. Krause, recently completed antibiotics, now w/ worsening back pain. Denies recent IVDU. L-Spine MRI w/ osteomyelitis/discitis of the lumbar spine with increased central canal stenosis most severe at L2-L3, images reviewed by me. S/p Blood Cultures and IV Abx. Follow up cultures, continue IV Abx. 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 Consult ID for further evaluation/recommendations. Will also consult NxSx for eval and possible intervention. 2. Psoas Abscess: Previous Left Psoas Abscess s/p CT-guided drainage, now increase in size w/ new small right psoas abscess. NxSx eval, likely IR for CT- Guided drainage 3. Intractable Pain: secondary to above, reports no relief w/ Tramadol, will continue PO/IV as needed, caution w/ h/o drug-seeking behavior/drug abuse. 4. Renal Insufficiency: Creatinine 1.48, previously one-point 01/08 and 06/20/17. IVF for hydration, repeat labs in a.m. 5. A. fib: Resume home Digoxin, Metoprolol and Diltiazem. 6. IVDU: Denies recent use, last use May 2017 per patient, Ativan prn if needed. 7. DVT Prophylaxis: SCD/Teds 8. Social work for d/c planning as needed. 9. Case discussed w/ ER physician at length, labs/records/imaging reviewed by me. Physician Certification 2 Midnight Certification Type: Admission for Inpatient Services Order for Inpatient Services The services are ordered in accordance with Medicare regulations or non- Medicare payer requirements, as applicable. In the case of services not specified as inpatient-only, they are appropriately provided as inpatient services in accordance with the 2-midnight benchmark. Estimated LOS (days): 2 days is the estimated time the patient will need to remain in the hospital, assuming treatment plan goals are met and no additional complications. Post-Hospital Plan: Not yet determined Sarah Beach MD Sep 13, 2017 04:09
[2017-09-13] MEDS: METOPROLOL TARTRATE 25 MG TAB PO SCH ×3 (06:04→21:16)
[2017-09-13] MEDS: SENNOSIDES 8.6 MG TAB PO PRN (06:04)
[2017-09-13] MEDS: THIAMINE HCL 100 MG TAB PO SCH (08:16)
[2017-09-13] MEDS: PANTOPRAZOLE SOD 20 MG DELAYED RELEASE TAB PO SCH (08:16)
[2017-09-13] MEDS: FOLIC ACID 1 MG TAB PO SCH (08:16)
[2017-09-13] MEDS: DOCUSATE SODIUM 50 MG/SENNA 8.6 MG TAB PO SCH ×2 (08:16→21:17)
[2017-09-13] MEDS: DIGOXIN 0.125 MG TAB PO SCH (08:17)
[2017-09-13] MEDS: SODIUM CHLORIDE 0.9% FLUSH 10 ML FLUSH IV FLUSH SCH ×2 (08:17→21:17)
[2017-09-13] MEDS: MULTIVITAMIN TAB PO SCH (08:17)
[2017-09-13] MEDS: CITALOPRAM HYDROBROMIDE 20 MG TAB PO SCH (08:17)
[2017-09-13] MEDS: MORPHINE SULFATE 2 MG/ML SYRINGE IV PUSH PRN ×4 (08:18→23:11)
[2017-09-13] MEDS ORDERED: CEFEPIME INJ 1,000 MG in SODIUM CHLORIDE 0.9% INJ 100 ML IV SCH (09:00)
--- NOTE | 2017-09-13 09:21 | PD.ID.CON ---
History of Present Illness Service Infectious disease Consult Requested By Dr. Beach - Hospitalist service Reason for Consult Lumbar osteomyelitis/discitis Primary Care Physician Quan Hwang, Diagnoses: History of Present Illness Patient seen and examined with Dr. Del Real This is a 66-year-old male past medical history significant for IVDU, MRSA bacteremia, MRSA L2-L3 discitis, Hep C and A. fib with RVR secondary to withdrawal who was admitted May 22, 2017 with altered mental status and complaints of left-sided back pain. MRI of the thoracic and lumbar spine revealed degenerative changes but no evidence for abscess or fluid collection.. Blood cultures were obtained at that time and 4/4 bottles grew MRSA. Patient was seen in consultation by Dr. Hernandez. Patient had a lumbar puncture and CSF revealed total protein of 986 and glucose of 1. Gram stain revealed many white cells but no organisms were seen. Additionally, patient's drug screen was positive for cocaine. Due to concern for possible bacterial meningitis, patient was treated with IV ceftriaxone, vancomycin and ampicillin. CSF culture failed to show any growth. CT of the chest revealed moderate size bilateral pleural effusions with small areas of patchy consolidation concerning for infection. He underwent bilateral chest tube placement with pleural fluid analysis suggestive of transudative effusion. CT of abdomen and pelvis showed retroperitoneal inflammation around the abdominal aorta as well as extensive small lymph nodes throughout the retroperitoneum free fluid in both pericolic gutters right greater than left possible discitis at L2-3 with cystic changes noted in the endplates. He underwent a CT guided needle biopsy Dec 20 of the L2L3 disc space aspirate grew MRSA which was resistant to penicillin and ceftriaxone but sensitive to vancomycin therefore, patient was continued on vancomycin alone. ESR was 140 and CRP was 26. CT thoracic and lumbar spine obtained June 05 revealed progression of L2-3 discitis and interval development of multiple small psoas muscle loculations bilaterally characteristic abscesses with compression of the thecal sac. Patient was seen in consultation by Dr. Krause of neurosurgery who did not feel surgical intervention was warranted at that time. On 06/09/17, patient was admitted to [facility] for comprehensive rehabilitation. On 06/12/17, repeat MRI lumbar spine revealed worsening of marrow edema now involving L1 to L4 and a small epidural abscess at L2 to L3 as well as dural enhancement and nerve root enhancement character significant infectious radiculitis and multi-locular left psoas abscess. On 06/16/17, patient underwent CT-guided aspiration of left psoas abscess which was positive for MRSA. Repeat blood cultures 05/28 and 06/05 were negative. Patient underwent echocardiogram and LEXIE which failed to show any evidence of infectious endocarditis. Patient also had Pseudomonas UTI that was treated with IV cefepime and changed to Levaquin. Patient developed acute renal failure likely due to vancomycin which was discontinued and he was treated with daptomycin with an end date of 07/26/17. Patient was discharged from [facility] to [facility] where he continued another month of IV antibiotic treatment. He then followed with Dr. Snyder as an outpatient and continued to be managed with oral antibiotics the names of which he is not sure of but thinks one may have been Bactrim. He was seen in Dr. Snyder's office two weeks ago and was told he had normal labs and had completed his antibiotic treatment course. This past Thursday, patient went to see his PCP Dr. Hwang with complaints of "not feeling well" and increased low back pain. Patient states that Thursday he began having new right- sided back pain with extension into the right buttock and right inguinal area as well as numbness and tingling down the front of the right leg and an increase in left-sided back pain prompting him to come into the ED for further evaluation. Patient states he last used IV drugs May 2017. In the ED, patient is afebrile. White count is elevated at 19. Lactic acid is 0.7. He is tachycardic with heart rate of 95. Blood cultures are pending. MRI thoracic and lumbar spine shows evidence of osteomyelitis/discitis of lumbar spine, anterior epidural fluid collection/abscess at L2-3 that has decreased in size however circumferential epidural soft tissue enhancement has increased in severity and extent resulting in increased central canal stenosis most severe at L2-3. Also noted is a slight increase in size of left psoas abscess and new small right psoas abscess. CT of abdomen and pelvis reveals progressive endplate vertebral body destruction at L2-3 and L3 4 with increased soft tissue density paraspinous regions and retroperitoneum with adenopathy concerning for ongoing infections and discitis. Infectious disease has been consulted for evaluation and management of lumbar osteomyelitis/discitis. He was evaluated in CDU. He is asleep but easily awakens to voice. Appears comfortable while lying supine. He has no complaints of fever, chills, nausea, vomiting, dysuria or diarrhea. He denies any weakness of bilateral lower extremities, bowel or bladder incontinence or saddle anesthesia. He does report difficulty sitting up and turning over secondary to increase back and buttock pain. Neurosurgery has been consulted as well. (Sarai Larson) Review of Systems Except as stated in HPI: all other systems reviewed are Neg (Sarai Larson) Past Family Social History Allergies: Coded Allergies: No Known Allergies (Unverified Allergy, Unknown, 09/12/17) Past Medical History IVDU MRSA bacteremia MRSA discitis/osteomyelitis L23 L34 MRSA left psoas abscess Hep C History of A. fib with RVR while going through withdrawal Past Surgical History Removal of knee cyst at the age of 3 Reported Medications Acidophilus/l-Sporogenes (Lactobacillus Acidophilus) 35 Million Cell-25 Million Cell Tab 1 Tab PO TID Oxycodone-Acetaminophen 5-325 (Oxycodone HCl/Acetaminophen) 5 Mg-325 Mg Tablet 1 Tab PO Q6H PRN Methocarbamol 500 Mg Tab 500 Mg PO TID PRN Thera Tablet (Multivitamin with Folic Acid) 400 Mcg Tablet 1 Tab PO DAILY 30 Days Gnp Vitamin B-1 (Thiamine HCl) 100 Mg Tab 100 Mg PO DAILY 30 Days Folic Acid 1 Mg Tablet 1 Mg PO DAILY 30 Days Protonix (Pantoprazole Sodium) 20 Mg Tab 20 Mg PO DAILY 30 Days [Petrolat-Zinc Barrier Oint] 120 APPLIC/120 GM Oint 1 Applic TOPICAL BID 30 Days Celexa (Citalopram Hydrobromide) 20 Mg Tab 20 Mg PO DAILY 30 Days Diltiazem (Diltiazem HCl) 90 Mg Tab 90 Mg PO QID 30 Days Metoprolol Tartrate 25 Mg Tab 25 Mg PO Q8HR 30 Days Digoxin 0.125 Mg Tab 0.125 Mg PO DAILY 30 Days Ferosul (Ferrous Sulfate) 325 Mg (65 Mg Iron) Tablet 325 Mg PO BID@12,17 30 Days [Albuterol-Ipratropium Neb] 1 AMPULE Nebu 1 Ampule NEB Q4HR NEB PRN 30 Days Tgt Aspirin (Aspirin) 81 Mg Chw 81 Mg CHEW DAILY Active Ordered Medications Current Medications Medications (Trade) Dose Ordered Sig/Frandy Route Start Time Stop Time Status Last Admin Pharmacy Profile Note 0 ml @ 0 mls/hr UNSCH OTHER 09/13/17 02:30 Cefepime HCl 1000 mg/Sodium Chloride 100 ml @ 200 mls/hr Q12H IV 09/13/17 09:00 Sodium Chloride 1,000 ml @ 100 mls/hr Q10H IV 09/13/17 02:24 09/13/17 03:50 (NS Flush) 2 ml UNSCH PRN IV FLUSH 09/13/17 02:30 (NS Flush) 2 ml BID IV FLUSH 09/13/17 09:00 (Zofran Inj) 4 mg Q6H PRN IVP 09/13/17 02:30 (Tylenol) 650 mg Q6H PRN PO 09/13/17 02:30 ([place] 5-325 Mg) 1 tab Q4H PRN PO 09/13/17 02:30 (Morphine Inj) 2 mg Q3H PRN IV PUSH 09/13/17 02:30 (Sabrina-Colace) 1 tab BID PO 09/13/17 09:00 (Milk Of Magnesia Liq) 30 ml Q12H PRN PO 09/13/17 02:30 (Senokot) 17.2 mg Q12H PRN PO 09/13/17 02:30 09/13/17 06:04 (Dulcolax Supp) 10 mg DAILY PRN RECTAL 09/13/17 02:30 (Lactulose Liq) 30 ml DAILY PRN PO 09/13/17 02:30 (CeleXA) 20 mg DAILY PO 09/13/17 09:00 (Lanoxin) 0.125 mg DAILY PO 09/13/17 09:00 (Cardizem) 90 mg QID PO 09/13/17 09:00 (Folate) 1 mg DAILY PO 09/13/17 09:00 (Robaxin) 500 mg TID PRN PO 09/13/17 02:30 (Lopressor) 25 mg Q8HR PO 09/13/17 06:00 09/13/17 06:04 (Theragran) 1 tab DAILY PO 09/13/17 09:00 (Protonix) 20 mg DAILY PO 09/13/17 09:00 (Vitamin B1) 100 mg DAILY PO 09/13/17 09:00 (Duoneb Neb) 1 ampule Q4HR NEB PRN NEB 09/13/17 03:00 (Xanax) 0.5 mg Q8H PRN PO 09/13/17 03:00 Family History Mother at age 93, no medical issues. Father at age 61, specifics unknown Social History Patient has a previous history of tobacco use but quit at the age of 28. Admits to daily alcohol use. Has a previous IV drug use history of cocaine and heroin but states he has not used since May 2017. (Sarai Larson) Physical Exam Vital Signs Vital Signs Date Time Temp Pulse Resp B/P (MAP) Pulse Ox O2 Delivery O2 Flow Rate FiO2 09/13/17 04:53 87 09/13/17 04:09 97.8 79 18 123/65 (84) 98 09/13/17 03:10 09/13/17 02:00 95 16 165/94 (117) 98 Room Air 09/13/17 00:55 90 16 170/90 (116) 97 Room Air 09/12/17 19:09 98.6 93 16 152/86 (108) 99 Physical Exam GENERAL: This is a well-nourished, well-developed male patient, in no apparent distress. SKIN: No rashes, ecchymoses or lesions. Cool and dry. HEAD: Atraumatic. Normocephalic. No temporal or scalp tenderness. EYES: Pupils equal round and reactive. Extraocular motions intact. No scleral icterus. No injection or drainage. ENT: Nose without bleeding or purulent drainage. Throat without erythema, tonsillar hypertrophy or exudate. Uvula midline. Airway patent. No oral thrush. NECK: Trachea midline. No lymphadenopathy. Supple, nontender, no meningeal signs. CARDIOVASCULAR: Regular rate and rhythm without murmurs, gallops, or rubs. RESPIRATORY: Clear to auscultation. Breath sounds equal bilaterally. No wheezes , rales, or rhonchi. GASTROINTESTINAL: Abdomen soft, non-tender, nondistended. No hepato-splenomegaly , or palpable masses. No guarding. MUSCULOSKELETAL: Extremities without clubbing, cyanosis, or edema. No joint tenderness, effusion, or edema noted. No calf tenderness. Thoracic and lumbar spine nontender to palpation. Decreased range of motion lumbar spine surgery to pain. Pain elicited in the back and right inguinal area with knee flexion. NEUROLOGICAL: Awake and. Cranial nerves II through XII grossly intact. Motor and sensory grossly within normal limits. Five out of 5 muscle strength in all muscle groups. Normal speech. Laboratory Laboratory Tests Test 09/12/17 21:20 09/12/17 21:30 09/12/17 22:40 White Blood Count 19.0 Red Blood Count 3.62 Hemoglobin 11.5 Hematocrit 33.0 Mean Corpuscular Volume 91.3 Mean Corpuscular Hemoglobin 31.7 Mean Corpuscular Hemoglobin Concent 34.7 Red Cell Distribution Width 15.2 Platelet Count 189 Mean Platelet Volume 8.2 Neutrophils (%) (Auto) 74.2 Lymphocytes (%) (Auto) 12.4 Monocytes (%) (Auto) 12.7 Eosinophils (%) (Auto) 0.3 Basophils (%) (Auto) 0.4 Neutrophils # (Auto) 14.1 Lymphocytes # (Auto) 2.4 Monocytes # (Auto) 2.4 Eosinophils # (Auto) 0.1 Basophils # (Auto) 0.1 CBC Comment DIFF FINAL Differential Comment Prothrombin Time 10.9 Prothromb Time International Ratio 1.1 Activated Partial Thromboplast Time 35.7 Blood Urea Nitrogen 29 Creatinine 1.48 Random Glucose 134 Total Protein 7.2 Albumin 3.4 Calcium Level 8.9 Alkaline Phosphatase 108 Aspartate Amino Transf (AST/SGOT) 89 Alanine Aminotransferase (ALT/SGPT) 85 Total Bilirubin 1.0 Sodium Level 135 Potassium Level 3.4 Chloride Level 102 Carbon Dioxide Level 26.1 Anion Gap 7 Estimat Glomerular Filtration Rate 47 Urine Color YELLOW Urine Turbidity HAZY Urine pH 5.5 Urine Specific [place] 1.031 Urine Protein 30 Urine Glucose (UA) NEG Urine Ketones NEG Urine Occult Blood TRACE Urine Nitrite NEG Urine Bilirubin NEG Urine Urobilinogen 2.0 Urine Leukocyte Esterase SMALL Urine RBC 6 Urine WBC 6 Urine Squamous Epithelial Cells <1 Urine Bacteria RARE Urine Mucus FEW Microscopic Urinalysis Comment CULT NOT INDICATED Lactic Acid Level 0.7 Date/Time Source Procedure Growth Status 09/12/17 22:40 Blood Peripheral Aerobic Blood Culture Pending Received 09/12/17 22:40 Blood Peripheral Anaerobic Blood Culture Pending Received (Sarai Larson) Result Diagram: 09/12/17211909/12/172119 Imaging Last Impressions Abdomen/Pelvis CT 09/12/172114 Signed Impressions: Service Date/Time: Tuesday, September 12, 2017 22:42 - CONCLUSION: Progressive endplate and vertebral body destruction at the L2-L3 and L3-L4 levels with increased soft tissue density in the paraspinous regions and retroperitoneum with adenopathy all concerning for ongoing infection and discitis. The patient is scheduled for MRI examinations of the thoracic and lumbar spines. Giovanni Gomez MD Thoracic Spine MRI 09/12/17 0000 Signed Impressions: Service Date/Time: Wednesday, September 13, 2017 00:02 - CONCLUSION: No significant interval change. No evidence of abscess in the thoracic spine region. Scott Morfin MD Lumbar Spine MRI 09/12/17 0000 Signed Impressions: Service Date/Time: Wednesday, September 13, 2017 00:02 - CONCLUSION: Evidence of osteomyelitis/discitis of the lumbar spine again seen. The defined anterior epidural fluid collection/abscess at L2-3 has decreased in size. However the ill-defined circumferential epidural soft tissue enhancement has increased in severity and extent. This results in increased central canal stenosis, most severe at L2-3. Slight increase in size of left psoas abscess and new small right psoas abscess also noted. Scott Morfin MD (Sarai Larson) Assessment and Plan Assessment and Plan ASSESSMENT: Discitis/osteomyelitis L2 - L4 with subsequent central canal stenosis most severe L23 Hx of MRSA bacteremia Hx of MRSA discitis Hx of MRSA left psoas abscess Hep C Hx of IVDU Atrial fibrillation Daily EtOH use Hx of renal failure while on Vancomycin RECOMMENDATIONS: Follow up on blood culture results Will discuss with Neurosurgery Will hold systemic antibiotics for now Further recommendations to follow (Sarai Larson) Assessment and Plan The exam, history, and the medical decision-making described in the above note were completed with the assistance of the mid-level provider. I reviewed and agree with the findings presented. I attest that I had a [id number] encounter with the patient on the same day, and personally performed and documented my assessment and findings in the medical record. Patient seen,examined, history obtained. Reviewed chart. Patient seen by in May 2017. Assessment/Plan: Discitis: H/o MRSA Psoas muscle abscess. Acute renal failure: prerenal, sepsis. Abnormal LFts: Hepatitis, sepsis. Hyperglycemia uncontrolled DM, sepsis related. Elevated CRP Now with recurrence of back pain. Imaging reviewed by me. Surgery by Patient wanted to wait for opinion. Informed him that source control is essential and needs to be done at the earliest. Continue Cefepime IV DC Vanco IV Start Daptomycin IV (ASP: failed Vanco, was on Dapto, may need further change based on cultures) (Felicia Del Real MD) Sarai Larson Sep 13, 2017 09:14 Felicia Del Real MD Sep 13, 2017 17:06
[2017-09-13] MEDS: DILTIAZEM HCL 90 MG TAB PO SCH ×4 (09:29→21:16)
--- NOTE | 2017-09-13 10:43 | HHI.PR ---
Subjective Remarks Patient reports pain in right side of back with radiation down right lower extremity Objective Vitals Vital Signs Date Time Temp Pulse Resp B/P (MAP) Pulse Ox O2 Delivery O2 Flow Rate FiO2 09/13/17 08:00 97.9 88 16 163/92 (115) 98 09/13/17 04:53 87 09/13/17 04:09 97.8 79 18 123/65 (84) 98 09/13/17 03:10 09/13/17 02:00 95 16 165/94 (117) 98 Room Air 09/13/17 00:55 90 16 170/90 (116) 97 Room Air 09/12/17 19:09 98.6 93 16 152/86 (108) 99 09/13/17 09/13/17 09/14/17 15:00 23:00 07:00 Intake Total 100 ml Balance 100 ml Intake IV Total 100 ml Result Diagram: 09/12/17211909/12/172119 Other Results Laboratory Tests Test 09/12/17 21:20 09/12/17 21:30 09/12/17 22:40 White Blood Count 19.0 TH/MM3 Red Blood Count 3.62 MIL/MM3 Hemoglobin 11.5 GM/DL Hematocrit 33.0 % Mean Corpuscular Volume 91.3 FL Mean Corpuscular Hemoglobin 31.7 PG Mean Corpuscular Hemoglobin Concent 34.7 % Red Cell Distribution Width 15.2 % Platelet Count 189 TH/MM3 Mean Platelet Volume 8.2 FL Neutrophils (%) (Auto) 74.2 % Lymphocytes (%) (Auto) 12.4 % Monocytes (%) (Auto) 12.7 % Eosinophils (%) (Auto) 0.3 % Basophils (%) (Auto) 0.4 % Neutrophils # (Auto) 14.1 TH/MM3 Lymphocytes # (Auto) 2.4 TH/MM3 Monocytes # (Auto) 2.4 TH/MM3 Eosinophils # (Auto) 0.1 TH/MM3 Basophils # (Auto) 0.1 TH/MM3 CBC Comment DIFF FINAL Differential Comment Prothrombin Time 10.9 SEC Prothromb Time International Ratio 1.1 RATIO Activated Partial Thromboplast Time 35.7 SEC Blood Urea Nitrogen 29 MG/DL Creatinine 1.48 MG/DL Random Glucose 134 MG/DL Total Protein 7.2 GM/DL Albumin 3.4 GM/DL Calcium Level 8.9 MG/DL Alkaline Phosphatase 108 U/L Aspartate Amino Transf (AST/SGOT) 89 U/L Alanine Aminotransferase (ALT/SGPT) 85 U/L Total Bilirubin 1.0 MG/DL Sodium Level 135 MEQ/L Potassium Level 3.4 MEQ/L Chloride Level 102 MEQ/L Carbon Dioxide Level 26.1 MEQ/L Anion Gap 7 MEQ/L Estimat Glomerular Filtration Rate 47 ML/MIN Urine Color YELLOW Urine Turbidity HAZY Urine pH 5.5 Urine Specific [place] 1.031 Urine Protein 30 mg/dL Urine Glucose (UA) NEG mg/dL Urine Ketones NEG mg/dL Urine Occult Blood TRACE Urine Nitrite NEG Urine Bilirubin NEG Urine Urobilinogen 2.0 MG/DL Urine Leukocyte Esterase SMALL Urine RBC 6 /hpf Urine WBC 6 /hpf Urine Squamous Epithelial Cells <1 /hpf Urine Bacteria RARE /hpf Urine Mucus FEW /lpf Microscopic Urinalysis Comment CULT NOT INDICATED Lactic Acid Level 0.7 mmol/L Imaging Last Impressions Abdomen/Pelvis CT 09/12/172114 Signed Impressions: Service Date/Time: Tuesday, September 12, 2017 22:42 - CONCLUSION: Progressive endplate and vertebral body destruction at the L2-L3 and L3-L4 levels with increased soft tissue density in the paraspinous regions and retroperitoneum with adenopathy all concerning for ongoing infection and discitis. The patient is scheduled for MRI examinations of the thoracic and lumbar spines. Giovanni Gomez MD Thoracic Spine MRI 09/12/17 0000 Signed Impressions: Service Date/Time: Wednesday, September 13, 2017 00:02 - CONCLUSION: No significant interval change. No evidence of abscess in the thoracic spine region. Scott Morfin MD Lumbar Spine MRI 09/12/17 Signed Impressions: Service Date/Time: Wednesday, September 13, 2017 00:02 - CONCLUSION: Evidence of osteomyelitis/discitis of the lumbar spine again seen. The defined anterior epidural fluid collection/abscess at L2-3 has decreased in size. However the ill-defined circumferential epidural soft tissue enhancement has increased in severity and extent. This results in increased central canal stenosis, most severe at L2-3. Slight increase in size of left psoas abscess and new small right psoas abscess also noted. Scott Morfin MD Objective Remarks GENERAL: This is a well-nourished, well-developed patient, in no apparent distress. CARDIOVASCULAR: Regular rate and rhythm RESPIRATORY: Clear to auscultation. Breath sounds equal bilaterally. GASTROINTESTINAL: Abdomen soft, non-tender, nondistended. Normal active bowel sounds MUSCULOSKELETAL: Extremities without clubbing, cyanosis, or edema. Thoracic and lumbar spine nontender to palpation NEURO: Alert & Oriented x4 to person, place, time, situation. Moves all ext x4 A/P Problem List: (1) Discitis of lumbar region ICD Codes: M46.46 - Discitis, unspecified, lumbar region Plan: 1. L-Spine Discitis/Osteomyelitis: Recurrent. Patient was recently admitted 06/2017, followed by ID and Dr. Krause, recently completed antibiotics, presented again to ER 09/12 with worsening back pain. L-Spine MRI w/ osteomyelitis/discitis of the lumbar spine with increased central canal stenosis most severe at L2-L3. Blood Cultures obtained and pending IV Abx initially Cefepime and Vancomycin - DC 'd by ID 09/13 Follow up cultures, continue IV Abx. H/o MRSA from previous cultures Consult ID for further evaluation/recommendations. recommending holding systemic abx and follow cultures consult NxSx for eval and possible intervention. 2. Psoas Abscess: Previous Left Psoas Abscess s/p CT-guided drainage, now increase in size w/ new small right psoas abscess. Neurosurgery consulted for evaluation 3. Intractable Pain: secondary to above, reports no relief w/ Tramadol, will continue PO/IV as needed, caution with h/o drug-seeking behavior/drug abuse. 4. Renal Insufficiency: Creatinine 1.48. IVF for hydration, repeat labs in a.m. 5. A. fib: Resume home Digoxin, Metoprolol and Diltiazem. 6. IVDU: Denies recent use, last use May 2017 per patient, Ativan prn if needed. 7. DVT Prophylaxis: SCD/Teds 8. Social work for d/c planning as needed. Case discussed with Dr. Gómez (2) Psoas abscess ICD Codes: K68.12 - Psoas muscle abscess (3) Intractable pain ICD Codes: R52 - Pain, unspecified (4) Renal insufficiency ICD Codes: N28.9 - Disorder of kidney and ureter, unspecified (5) A-fib ICD Codes: I48.91 - Unspecified atrial fibrillation (6) IVDU (intravenous drug user) ICD Codes: F19.90 - Other psychoactive substance use, unspecified, uncomplicated Aranza Braga Sep 13, 2017 10:43
--- NOTE | 2017-09-13 13:34 | PD.CONS ---
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 He has been followed by Dr. Krause from neurosurgery and infectious disease on inpatient and outpatient setting. Complains of recurrent and worsening back pain with intermittent pain rating down to the right leg and thigh and calf with intermittent numbness. Denies any weakness or incontinence. It is placed on tramadol but states this is not helping control his pain and therefore was scheduled to see a pain specialist later next week as well as a follow-up MRI scan. His back pain worsened and he presented to the emergency room last evening and MRI scan of the thoracic and lumbar spine obtained reveals extensive L1-2, L2-3 and L3-4 discitis with osteomyelitis along with a moderate spinal stenosis from epidural abscess along with psoas abscesses. When compared to the MRI scan in June of the stenosis appears to have progressed especially at the L2-3 level. He has been receiving Percocet and morphine for pain and appears to be comfortable with this regimen. Review of Systems Constitutional: DENIES: Diaphoretic episodes, Fatigue, Fever, Weight gain, Weight loss, Chills, Dizziness, Change in appetite, Night Sweats Endocrine: DENIES: Heat/cold intolerance, Polydipsia, Polyuria, Polyphagia Eyes: DENIES: Blurred vision, Diplopia, Eye inflammation, Eye pain, Vision loss , Photosensitivity, Double Vision Ears, nose, mouth, throat: DENIES: Tinnitus, Hearing loss, Vertigo, Nasal discharge, Oral lesions, Throat pain, Hoarseness, Ear Pain, Running Nose, Epistaxis, Sinus Pain, Toothache, Odynophagia Respiratory: DENIES: Apneas, Cough, Snoring, Wheezing, Hemoptysis, Sputum production, Shortness of breath Cardiovascular: DENIES: Chest pain, Palpitations, Syncope, Dyspnea on Exertion , PND, Lower Extremity Edema, Orthopnea, Claudication Gastrointestinal: DENIES: Abdominal pain, Black stools, Bloody stools, Constipation, Diarrhea, Nausea, Vomiting, Difficulty Swallowing, Anorexia Genitourinary: DENIES: Sexual dysfunction, Urinary frequency, Urinary incontinence, Urgency, Hematuria, Dysuria, Nocturia, Penile Discharge, Testicular Pain, Testicular Swelling Musculoskeletal: COMPLAINS OF: Joint pain, Muscle aches, Stiffness, Back pain, DENIES: Joint Swelling, Neck pain Integumentary: DENIES: Abnormal pigmentation, Nail changes, Pruritus, Rash Hematologic/lymphatic: DENIES: Bruising, Lymphadenopathy Immunologic/allergic: DENIES: Eczema, Urticaria Neurologic: COMPLAINS OF: Paresthesias Psychiatric: DENIES: Anxiety, Confusion, Mood changes, Depression, Hallucinations, Agitation, Suicidal Ideation, Homicidal Ideation, Delusions Past Family Social History Allergies: Coded Allergies: No Known Allergies (Unverified Allergy, Unknown, 09/12/17) Past Medical History MRSA bacteremia with MRSA discitis/osteomyelitis L23 L34 MRSA left psoas abscess Hep C History of A. fib with RVR History of IV drug abuse Reported Medications Acidophilus/l-Sporogenes (Lactobacillus Acidophilus) 35 Million Cell-25 Million Cell Tab 1 Tab PO TID Oxycodone-Acetaminophen 5-325 (Oxycodone HCl/Acetaminophen) 5 Mg-325 Mg Tablet 1 Tab PO Q6H PRN Methocarbamol 500 Mg Tab 500 Mg PO TID PRN Thera Tablet (Multivitamin with Folic Acid) 400 Mcg Tablet 1 Tab PO DAILY 30 Days Gnp Vitamin B-1 (Thiamine HCl) 100 Mg Tab 100 Mg PO DAILY 30 Days Folic Acid 1 Mg Tablet 1 Mg PO DAILY 30 Days Protonix (Pantoprazole Sodium) 20 Mg Tab 20 Mg PO DAILY 30 Days [Petrolat-Zinc Barrier Oint] 120 APPLIC/120 GM Oint 1 Applic TOPICAL BID 30 Days Celexa (Citalopram Hydrobromide) 20 Mg Tab 20 Mg PO DAILY 30 Days Diltiazem (Diltiazem HCl) 90 Mg Tab 90 Mg PO QID 30 Days Metoprolol Tartrate 25 Mg Tab 25 Mg PO Q8HR 30 Days Digoxin 0.125 Mg Tab 0.125 Mg PO DAILY 30 Days Ferosul (Ferrous Sulfate) 325 Mg (65 Mg Iron) Tablet 325 Mg PO BID@12,17 30 Days [Albuterol-Ipratropium Neb] 1 AMPULE Nebu 1 Ampule NEB Q4HR NEB PRN 30 Days Tgt Aspirin (Aspirin) 81 Mg Chw 81 Mg CHEW DAILY Social History He is single and drinks about 4 out of a rigid a day. Former smoker. Relates to me that he has stopped IV drug abuse since this infection. Physical Exam Vital Signs Vital Signs Date Time Temp Pulse Resp B/P (MAP) Pulse Ox O2 Delivery O2 Flow Rate FiO2 09/13/17 12:00 99.1 86 16 156/88 (110) 99 09/13/17 08:00 97.9 88 16 163/92 (115) 98 09/13/17 04:53 87 09/13/17 04:09 97.8 79 18 123/65 (84) 98 09/13/17 03:10 09/13/17 02:00 95 16 165/94 (117) 98 Room Air 09/13/17 00:55 90 16 170/90 (116) 97 Room Air 09/12/17 19:09 98.6 93 16 152/86 (108) 99 Physical Exam GENERAL: This is a well-nourished, well-developed elderly patient, in no apparent distress. SKIN: No rashes, ecchymoses or lesions. Cool and dry. HEAD: Atraumatic. Normocephalic. No temporal or scalp tenderness. EYES: Pupils equal round and reactive. Extraocular motions intact. No scleral icterus. No injection or drainage. ENT: Nose without bleeding, purulent drainage or septal hematoma. Throat without erythema, tonsillar hypertrophy or exudate. Uvula midline. Airway patent. NECK: Trachea midline. No JVD or lymphadenopathy. Supple, nontender, no meningeal signs. CARDIOVASCULAR: Regular rate and rhythm without murmurs, gallops, or rubs. RESPIRATORY: Clear to auscultation. Breath sounds equal bilaterally. No wheezes , rales, or rhonchi. GASTROINTESTINAL: Abdomen soft, non-tender, nondistended. No hepato-splenomegaly , or palpable masses. No guarding. MUSCULOSKELETAL: Extremities without clubbing, cyanosis, or edema. Complains of low back pain with elevation and hip flexion legs. No effusion, or edema noted. No calf tenderness. Negative Homans sign bilaterally. NEUROLOGICAL: Awake and alert. Cranial nerves II through XII intact. Motor and sensory grossly within normal limits. Five out of 5 muscle strength in all muscle groups. Normal speech. Laboratory Laboratory Tests Test 09/12/17 21:20 09/12/17 21:30 09/12/17 22:40 09/13/17 10:24 White Blood Count 19.0 Red Blood Count 3.62 Hemoglobin 11.5 Hematocrit 33.0 Mean Corpuscular Volume 91.3 Mean Corpuscular Hemoglobin 31.7 Mean Corpuscular Hemoglobin Concent 34.7 Red Cell Distribution Width 15.2 Platelet Count 189 Mean Platelet Volume 8.2 Neutrophils (%) (Auto) 74.2 Lymphocytes (%) (Auto) 12.4 Monocytes (%) (Auto) 12.7 Eosinophils (%) (Auto) 0.3 Basophils (%) (Auto) 0.4 Neutrophils # (Auto) 14.1 Lymphocytes # (Auto) 2.4 Monocytes # (Auto) 2.4 Eosinophils # (Auto) 0.1 Basophils # (Auto) 0.1 CBC Comment DIFF FINAL Differential Comment Prothrombin Time 10.9 Prothromb Time International Ratio 1.1 Activated Partial Thromboplast Time 35.7 Blood Urea Nitrogen 29 Creatinine 1.48 Random Glucose 134 Total Protein 7.2 Albumin 3.4 Calcium Level 8.9 Alkaline Phosphatase 108 Aspartate Amino Transf (AST/SGOT) 89 Alanine Aminotransferase (ALT/SGPT) 85 Total Bilirubin 1.0 Sodium Level 135 Potassium Level 3.4 Chloride Level 102 Carbon Dioxide Level 26.1 Anion Gap 7 Estimat Glomerular Filtration Rate 47 Urine Color YELLOW Urine Turbidity HAZY Urine pH 5.5 Urine Specific [place]ron 1.031 Urine Protein 30 Urine Glucose (UA) NEG Urine Ketones NEG Urine Occult Blood TRACE Urine Nitrite NEG Urine Bilirubin NEG Urine Urobilinogen 2.0 Urine Leukocyte Esterase SMALL Urine RBC 6 Urine WBC 6 Urine Squamous Epithelial Cells <1 Urine Bacteria RARE Urine Mucus FEW Microscopic Urinalysis Comment CULT NOT INDICATED Lactic Acid Level 0.7 Erythrocyte Sedimentation Rate 44 C-Reactive Protein 21.90 Date/Time Source Procedure Growth Status 09/12/17 22:40 Blood Peripheral Aerobic Blood Culture - Preliminary NO GROWTH IN 1 DAY Resulted 09/12/17 22:40 Blood Peripheral Anaerobic Blood Culture - Preliminary NO GROWTH IN 1 DAY Resulted Result Diagram: 09/12/17211909/12/172119 Imaging Last Impressions Abdomen/Pelvis CT 09/12/172114 Signed Impressions: Service Date/Time: Tuesday, September 12, 2017 22:42 - CONCLUSION: Progressive endplate and vertebral body destruction at the L2-L3 and L3-L4 levels with increased soft tissue density in the paraspinous regions and retroperitoneum with adenopathy all concerning for ongoing infection and discitis. The patient is scheduled for MRI examinations of the thoracic and lumbar spines. Giovanni Gomez MD Thoracic Spine MRI 09/12/17 0000 Signed Impressions: Service Date/Time: Wednesday, September 13, 2017 00:02 - CONCLUSION: No significant interval change. No evidence of abscess in the thoracic spine region. Scott Morfin MD Lumbar Spine MRI 09/12/17 Signed Impressions: Service Date/Time: Wednesday, September 13, 2017 00:02 - CONCLUSION: Evidence of osteomyelitis/discitis of the lumbar spine again seen. The defined anterior epidural fluid collection/abscess at L2-3 has decreased in size. However the ill-defined circumferential epidural soft tissue enhancement has increased in severity and extent. This results in increased central canal stenosis, most severe at L2-3. Slight increase in size of left psoas abscess and new small right psoas abscess also noted. Scott Morfin MD Assessment and Plan Assessment and Plan Recurrent and persistent lumbar discitis/osteomyelitis/epidural abscess with moderate spinal stenosis from L2-L4 levels with associated psoas abscesses. He' s undergone MRSA IV treatment since May 22, 2017 until mid-July and subsequent oral antibiotics until a couple weeks ago under the direction of infectious disease. Treatment options were discussed including lumbar laminectomy versus a CT-guided aspiration to obtain new cultures to ensure if the persistent/recurrent infection is MRSA or another organism. Patient relates that he's been followed by Dr. Krause and would prefer his opinion also in this aspect. Accordingly Dr. Krause will evaluate the patient tomorrow morning and will defer further neurosurgical management to him. Meantime continue with pain control along with increasing activity with physical therapy involvement to prevent deconditioning and DVT prophylaxis. Jacob Freeman MD Sep 13, 2017 13:34
--- NOTE | 2017-09-13 16:14 | HHI.PR ---
Subjective Remarks Patient reports pain in right side of back with radiation down right lower extremity Objective Vital Signs Date Time Temp Pulse Resp B/P (MAP) Pulse Ox O2 Delivery O2 Flow Rate FiO2 09/13/17 12:00 99.1 86 16 156/88 (110) 99 09/13/17 08:00 97.9 88 16 163/92 (115) 98 09/13/17 04:53 87 09/13/17 04:09 97.8 79 18 123/65 (84) 98 09/13/17 03:10 09/13/17 02:00 95 16 165/94 (117) 98 Room Air 09/13/17 00:55 90 16 170/90 (116) 97 Room Air 09/12/17 19:09 98.6 93 16 152/86 (108) 99 I/O 09/12/17 09/12/17 09/12/17 09/13/17 09/13/17 09/13/17 07:00 15:00 23:00 07:00 15:00 23:00 Intake Total 1667.5 ml 1100 ml Balance 1667.5 ml 1100 ml Intake IV Total 1667.5 ml 1100 ml Result Diagram: 09/12/17211909/12/172119 Imaging Last Impressions Abdomen/Pelvis CT 09/12/172114 Signed Impressions: Service Date/Time: Tuesday, September 12, 2017 22:42 - CONCLUSION: Progressive endplate and vertebral body destruction at the L2-L3 and L3-L4 levels with increased soft tissue density in the paraspinous regions and retroperitoneum with adenopathy all concerning for ongoing infection and discitis. The patient is scheduled for MRI examinations of the thoracic and lumbar spines. Giovanni Gomez MD Thoracic Spine MRI 09/12/17 0000 Signed Impressions: Service Date/Time: Wednesday, September 13, 2017 00:02 - CONCLUSION: No significant interval change. No evidence of abscess in the thoracic spine region. Scott Morfin MD Lumbar Spine MRI 09/12/17 0000 Signed Impressions: Service Date/Time: Wednesday, September 13, 2017 00:02 - CONCLUSION: Evidence of osteomyelitis/discitis of the lumbar spine again seen. The defined anterior epidural fluid collection/abscess at L2-3 has decreased in size. However the ill-defined circumferential epidural soft tissue enhancement has increased in severity and extent. This results in increased central canal stenosis, most severe at L2-3. Slight increase in size of left psoas abscess and new small right psoas abscess also noted. Scott Morfin MD Objective Remarks GENERAL: This is a well-nourished, well-developed patient, in no apparent distress. CARDIOVASCULAR: Regular rate and rhythm RESPIRATORY: Clear to auscultation. Breath sounds equal bilaterally. GASTROINTESTINAL: Abdomen soft, non-tender, nondistended. Normal active bowel sounds MUSCULOSKELETAL: Extremities without clubbing, cyanosis, or edema. Thoracic and lumbar spine nontender to palpation NEURO: Alert & Oriented x4 to person, place, time, situation. Moves all ext x4 A/P Assessment and Plan 1. L-Spine Discitis/Osteomyelitis: Recurrent. Patient was recently admitted 06/2017, followed by ID and Dr. Krause, recently completed antibiotics, presented again to ER 09/12 with worsening back pain. L-Spine MRI w/ osteomyelitis/discitis of the lumbar spine with increased central canal stenosis most severe at L2-L3. Blood Cultures obtained and pending IV Abx initially Cefepime and Vancomycin - DC 'd by ID 09/13 Follow up cultures, continue IV Abx. H/o MRSA from previous cultures Consult ID for further evaluation/recommendations. recommending holding systemic abx and follow cultures consult NxSx for eval and possible intervention. 2. Psoas Abscess: Previous Left Psoas Abscess s/p CT-guided drainage, now increase in size w/ new small right psoas abscess. Neurosurgery consulted for evaluation 3. Intractable Pain: secondary to above, reports no relief w/ Tramadol, will continue PO/IV as needed, caution with h/o drug-seeking behavior/drug abuse. 4. Renal Insufficiency: Creatinine 1.48. IVF for hydration, repeat labs in a.m. 5. A. fib: Resume home Digoxin, Metoprolol and Diltiazem. 6. IVDU: Denies recent use, last use May 2017 per patient, Ativan prn if needed. 7. DVT Prophylaxis: SCD/Teds 8. Social work for d/c planning as needed. Case discussed with Aranza Alberto Sep 13, 2017 16:14
[2017-09-13] MEDS: DAPTOmycin INJ 650 MG in SODIUM CHLORIDE 0.9% INJ 100 ML IV SCH (18:11)
--- NOTE | 2017-09-13 20:05 | EKG ---
Date Performed: 09/12/2017 Time Performed: 22:21:28 PTAGE: 66 years EKG: Sinus rhythm WITH OCCASIONAL VENTRICULAR PREMATURE COMPLEXES Compared to previous tracing, rhythm has changed fro m atrial fibrillation with rapid ventricular response to sinus rhythm. BORDERLINE ECG PREVIOUS TRACING : 05/25/17 @ 2018 DOCTOR: Owen Stephen Interpretating Date/Time 09/13/2017 20:04:16
[2017-09-13] MEDS: ALPRAZolam 0.5 MG TAB PO PRN (23:32)
[2017-09-14] VITALS (9 sets, daily range): BP systolic 100–134; BP diastolic 62–69; PULSE 16–70; RESP 16–19; TEMP 97.1–98.4; O2SAT 95–98
[2017-09-14] MEDS ORDERED: VANCOMYCIN 1,000 MG/NS 250 ML IV SCH ×2 (01:00)
[2017-09-14 07:31] LABS: AUTOMATED NEUTROPHIL # 8.8 TH/MM3 (1.8-7.7); BASOPHIL % 0.3 % (0.0-2.0); EOSINOPHIL # 0.2 TH/MM3 (0-0.4); EOSINOPHIL % 1.5 % (0.0-4.0); HEMATOCRIT 31.6 % (39.0-51.0); HEMOGLOBIN 10.5 GM/DL (13.0-17.0); LYMPH % 11.2 % (9.0-44.0); LYMPHOCYTE # 1.4 TH/MM3 (1.0-4.8); MEAN CELL VOLUME 92.5 FL (80.0-100.0); MEAN CORPUSCULAR HEMOGLOBIN 30.8 PG (27.0-34.0); MEAN CORPUSCULAR HGB CONC 33.3 % (32.0-36.0); MEAN PLATELET VOLUME 8.2 FL (7.0-11.0); MONO % 16.1 % (0.0-8.0); NEUT % 70.9 % (16.0-70.0); PLATELET COUNT 160 TH/MM3 (150-450); RED BLOOD COUNT 3.41 MIL/MM3 (4.50-5.90); RED CELL DISTRIBUTION WIDTH 15.5 % (11.6-17.2); WHITE BLOOD COUNT 12.5 TH/MM3 (4.0-11.0)
[2017-09-14 07:55] LABS: ALBUMIN 2.4 GM/DL (3.4-5.0); ALKALINE PHOSPHATASE 89 U/L (45-117); ALT (GPT) 74 U/L (12-78); AST (GOT) 86 U/L (15-37); BICARBONATE 21.3 MEQ/L (21.0-32.0); BLOOD UREA NITROGEN 16 MG/DL (7-18); CALCIUM 8.6 MG/DL (8.5-10.1); CHLORIDE 107 MEQ/L (98-107); CREATININE 1.01 MG/DL (0.60-1.30); GLOMERULAR FILTRATION RATE 73 ML/MIN (>89); GLUCOSE,RANDOM 82 MG/DL (74-106); SODIUM (NA) 138 MEQ/L (136-145); TOTAL BILIRUBIN ADULT 0.8 MG/DL (0.2-1.0); TOTAL PROTEIN 5.9 GM/DL (6.4-8.2)
[2017-09-14] MEDS: METOPROLOL TARTRATE 25 MG TAB PO SCH ×3 (08:17→23:56)
[2017-09-14] MEDS: MORPHINE SULFATE 2 MG/ML SYRINGE IV PUSH PRN ×4 (08:17→23:53)
[2017-09-14] MEDS: CITALOPRAM HYDROBROMIDE 20 MG TAB PO SCH (09:02)
[2017-09-14] MEDS: DIGOXIN 0.125 MG TAB PO SCH (09:02)
[2017-09-14] MEDS: FOLIC ACID 1 MG TAB PO SCH (09:02)
[2017-09-14] MEDS: THIAMINE HCL 100 MG TAB PO SCH (09:02)
[2017-09-14] MEDS: PANTOPRAZOLE SOD 20 MG DELAYED RELEASE TAB PO SCH (09:02)
[2017-09-14] MEDS: DILTIAZEM HCL 90 MG TAB PO SCH ×4 (09:03→20:26)
[2017-09-14] MEDS: MULTIVITAMIN TAB PO SCH (09:03)
[2017-09-14] MEDS: SODIUM CHLOR 0.9% 1000 ML INJ 1,000 ML IV SCH (09:03)
[2017-09-14] MEDS: SODIUM CHLORIDE 0.9% FLUSH 10 ML FLUSH IV FLUSH SCH ×2 (09:03→20:27)
[2017-09-14] MEDS: DOCUSATE SODIUM 50 MG/SENNA 8.6 MG TAB PO SCH ×2 (09:04→20:26)
--- NOTE | 2017-09-14 11:55 | HHI.PR ---
Subjective Remarks Follow up Discitis/Osteo 09/14/17-patient seen and examined; complains of Back pain but denies any lower extremities weakness or numbness. Afebrile. Seen by NSG Objective Vitals Vital Signs Date Time Temp Pulse Resp B/P (MAP) Pulse Ox O2 Delivery O2 Flow Rate FiO2 09/14/17 08:14 97.1 16 16 107/62 (77) 98 09/14/17 04:32 56 09/14/17 04:00 97.4 65 18 118/64 (82) 95 09/14/17 00:36 98.3 56 18 100/62 (75) 98 09/14/17 00:19 58 09/13/17 21:11 100.0 67 18 119/59 (79) 97 09/13/17 20:00 72 09/13/17 16:00 99.0 84 16 158/77 (104) 98 09/13/17 12:00 99.1 86 16 156/88 (110) 99 I/O 09/13/17 09/13/17 09/13/17 09/14/17 09/14/17 09/14/17 07:00 15:00 23:00 07:00 15:00 23:00 Intake Total 1667.5 ml 1100 ml 2000 ml Output Total 1350 ml 400 ml Balance 1667.5 ml 1100 ml 650 ml -400 ml Intake Oral 1250 ml IV Total 1667.5 ml 1100 ml 750 ml Output Urine Total 1350 ml 400 ml Result Diagram: 09/14/17 0655 09/14/17 0655 Imaging Last Impressions Abdomen/Pelvis CT 09/12/172114 Signed Impressions: Service Date/Time: Tuesday, September 12, 2017 22:42 - CONCLUSION: Progressive endplate and vertebral body destruction at the L2-L3 and L3-L4 levels with increased soft tissue density in the paraspinous regions and retroperitoneum with adenopathy all concerning for ongoing infection and discitis. The patient is scheduled for MRI examinations of the thoracic and lumbar spines. Giovanni Gomez MD Thoracic Spine MRI 09/12/17 0000 Signed Impressions: Service Date/Time: Wednesday, September 13, 2017 00:02 - CONCLUSION: No significant interval change. No evidence of abscess in the thoracic spine region. Scott Morfin MD Lumbar Spine MRI 09/12/17 0000 Signed Impressions: Service Date/Time: Wednesday, September 13, 2017 00:02 - CONCLUSION: Evidence of osteomyelitis/discitis of the lumbar spine again seen. The defined anterior epidural fluid collection/abscess at L2-3 has decreased in size. However the ill-defined circumferential epidural soft tissue enhancement has increased in severity and extent. This results in increased central canal stenosis, most severe at L2-3. Slight increase in size of left psoas abscess and new small right psoas abscess also noted. Scott Morfin MD Objective Remarks GENERAL: NAD SKIN: Warm and dry. HEAD: Normocephalic. EYES: No scleral icterus. No injection or drainage. NECK: Supple, trachea midline. No JVD or lymphadenopathy. CARDIOVASCULAR: Regular rate and rhythm without murmurs, gallops, or rubs. RESPIRATORY: Breath sounds equal bilaterally. No accessory muscle use. GASTROINTESTINAL: Abdomen soft, non-tender, nondistended. MUSCULOSKELETAL: No cyanosis, or edema. BACK: Nontender without obvious deformity. No CVA tenderness. A/P Problem List: (1) Discitis of lumbar region ICD Code: M46.46 - Discitis, unspecified, lumbar region (2) Psoas abscess ICD Code: K68.12 - Psoas muscle abscess (3) Intractable pain ICD Code: R52 - Pain, unspecified (4) Renal insufficiency ICD Code: N28.9 - Disorder of kidney and ureter, unspecified (5) A-fib ICD Code: I48.91 - Unspecified atrial fibrillation (6) IVDU (intravenous drug user) ICD Code: F19.90 - Other psychoactive substance use, unspecified, uncomplicated Assessment and Plan 66-year-old man with 1. L-Spine Discitis/Osteomyelitis: Recurrent. Appreciate input from neurosurgery and plan for surgical intervention this week Continue with Cubicin per ID and monitor culture report Pain management accordingly 2. Psoas Abscess: Previous Left Psoas Abscess s/p CT-guided drainage, now increase in size w/ new small right psoas abscess. appreciate input from neurosurgery 3. Intractable Pain: secondary to above, reports no relief w/ Tramadol, Continue PO/IV as needed, caution with h/o drug-seeking behavior/drug abuse. 4. Renal Insufficiency: resolved with IV fluid hydration 5. A. fib: continue home Digoxin, Metoprolol and Diltiazem. 6. IVDU: Denies recent use, last use May 2017 per patient, Ativan prn if needed. 7. DVT Prophylaxis: SCD/Teds Gm Hamilton MD Sep 14, 2017 11:55
--- NOTE | 2017-09-14 12:49 | HHI.NSPN ---
History Chief Complaint: back pain Interval History No significant change in back pain overnight. No ongoing pain and weakness or numbness in the lower extremities today. No complaints of bowel or bladder dysfunction. He states that his pain in the back, worse last week, with intermittent pain radiating to the lower extremities with ambulation. No neck pain or upper extremity pain weakness or numbness. Exam Results Vital Signs Date Time Temp Pulse Resp B/P (MAP) Pulse Ox O2 Delivery O2 Flow Rate FiO2 09/14/17 12:09 97.3 51 16 122/66 (84) 98 09/13/17 02:00 Room Air Intake and Output 09/14/17 09/14/17 09/15/17 08:00 16:00 00:00 Output Total 400 ml Balance -400 ml Physical Examination No apparent distress Respirations clear, nonlabored Abdomen soft, nontender Moderate lumbar tenderness Sensation intact light touch throughout the lower extremities Strength normal all major flexion extension good, inversion/eversion of the foot right and left lower extremity except for possible mild weakness left hamstrings but complains of low back pain with testing. No ankle clonus Plantar neutral bilateral Lab, Micro, Other Results Laboratory Tests Test 09/14/17 06:55 09/14/17 09:00 White Blood Count 12.5 TH/MM3 Red Blood Count 3.41 MIL/MM3 Hemoglobin 10.5 GM/DL Hematocrit 31.6 % Mean Corpuscular Volume 92.5 FL Mean Corpuscular Hemoglobin 30.8 PG Mean Corpuscular Hemoglobin Concent 33.3 % Red Cell Distribution Width 15.5 % Platelet Count 160 TH/MM3 Mean Platelet Volume 8.2 FL Neutrophils (%) (Auto) 70.9 % Lymphocytes (%) (Auto) 11.2 % Monocytes (%) (Auto) 16.1 % Eosinophils (%) (Auto) 1.5 % Basophils (%) (Auto) 0.3 % Neutrophils # (Auto) 8.8 TH/MM3 Lymphocytes # (Auto) 1.4 TH/MM3 Monocytes # (Auto) 2.0 TH/MM3 Eosinophils # (Auto) 0.2 TH/MM3 Basophils # (Auto) 0.0 TH/MM3 CBC Comment DIFF FINAL Differential Comment Blood Urea Nitrogen 16 MG/DL Creatinine 1.01 MG/DL Random Glucose 82 MG/DL Total Protein 5.9 GM/DL Albumin 2.4 GM/DL Calcium Level 8.6 MG/DL Alkaline Phosphatase 89 U/L Aspartate Amino Transf (AST/SGOT) 86 U/L Alanine Aminotransferase (ALT/SGPT) 74 U/L Total Bilirubin 0.8 MG/DL Sodium Level 138 MEQ/L Potassium Level 3.4 MEQ/L Chloride Level 107 MEQ/L Carbon Dioxide Level 21.3 MEQ/L Anion Gap 10 MEQ/L Estimat Glomerular Filtration Rate 73 ML/MIN Urine Opiates Screen POS Urine Barbiturates Screen NEG Urine Amphetamines Screen NEG Urine Benzodiazepines Screen POS Urine Cocaine Screen NEG Urine Cannabinoids Screen NEG Medical Decision Making Impression and Plan Impression: 1. Lumbar discitis and osteomyelitis. His most recent MRI imaging and CT scan of the abdomen images are reviewed by the undersigned today. There appears to be healing of the L3 4 disc space with possible spontaneous fusion across this level. At the L1-L2 level, there is diminished epidural abscess component compared to his previous MRI. At the L2-L3 level, there is significant destruction of the vertebral endplates and vertebral body adjacent to the L2-3 disc space. Previous epidural abscess component is resolved at this level, but there is increased granulation tissue with moderately severe canal stenosis. Significant bilateral psoas muscle abscess persists with a fluid component bilaterally, somewhat worse compared to the previous MRI scan. Recommendations: Findings were explained at length with the patient. Options of further conservative treatment versus surgical intervention discussed. Since he appears to have persistent significant psoas abscess with some persistent disc space involvement at the L2-3 level, now having had extensive treatment with intravenous and oral antibiotics, it is felt that he will require debridement of the L2-3 level with stabilization. Options of posterior versus lateral trans-psoas approach explained to the patient along with pros and cons of each. In order to avoid significant posterior element disruption and have better access to debride this psoas abscess bilaterally, a lateral trans-psoas approach would be reasonable. The risk of the surgery including risk of radiculopathy, nerve palsy, spinal fluid leak, failure of instrumentation or fusion, need for further surgery including possible revision if prolonged infection of the instrumented site occurs have all been discussed. Since he is neurologically stable with chronic infection, this will be scheduled on elective basis. Discussed with infectious disease José Antonio Krause MD Sep 14, 2017 12:49
--- NOTE | 2017-09-14 16:27 | HHI.IDPN ---
Subjective Subjective Remarks This is a 66-year-old male past medical history significant for IVDU, MRSA bacteremia, MRSA L2-L3 discitis, Hep C and A. fib with RVR secondary to withdrawal who was admitted May 22, 2017 with altered mental status and complaints of left-sided back pain. MRI of the thoracic and lumbar spine revealed degenerative changes but no evidence for abscess or fluid collection.. Blood cultures were obtained at that time and 4/4 bottles grew MRSA. Patient was seen in consultation by Dr. Hernandez. Patient had a lumbar puncture and CSF revealed total protein of 986 and glucose of 1. Gram stain revealed many white cells but no organisms were seen. Additionally, patient's drug screen was positive for cocaine. Due to concern for possible bacterial meningitis, patient was treated with IV ceftriaxone, vancomycin and ampicillin. CSF culture failed to show any growth. CT of the chest revealed moderate size bilateral pleural effusions with small areas of patchy consolidation concerning for infection. He underwent bilateral chest tube placement with pleural fluid analysis suggestive of transudative effusion. CT of abdomen and pelvis showed retroperitoneal inflammation around the abdominal aorta as well as extensive small lymph nodes throughout the retroperitoneum free fluid in both pericolic gutters right greater than left possible discitis at L2-3 with cystic changes noted in the endplates. He underwent a CT guided needle biopsy Dec of the L2L3 disc space aspirate grew MRSA which was resistant to penicillin and ceftriaxone but sensitive to vancomycin therefore, patient was continued on vancomycin alone. ESR was 140 and CRP was 26. [address] thoracic and lumbar spine obtained June 05 revealed progression of L2-3 discitis and interval development of multiple small psoas muscle loculations bilaterally characteristic abscesses with compression of the thecal sac. Patient was seen in consultation by Dr. Krause of neurosurgery who did not feel surgical intervention was warranted at that time. On 06/09/17, patient was admitted to [facility] for comprehensive rehabilitation. On 06/12/17, repeat MRI lumbar spine revealed worsening of marrow edema now involving L1 to L4 and a small epidural abscess at L2 to L3 as well as dural enhancement and nerve root enhancement character significant infectious radiculitis and multi-locular left psoas abscess. On 06/16/17, patient underwent CT-guided aspiration of left psoas abscess which was positive for MRSA. Repeat blood cultures 05/28 and 06/05 were negative. Patient underwent echocardiogram and LEXIE which failed to show any evidence of infectious endocarditis. Patient also had Pseudomonas UTI that was treated with IV cefepime and changed to Levaquin. Patient developed acute renal failure likely due to vancomycin which was discontinued and he was treated with daptomycin with an end date of 07/26/17. Patient was discharged from [facility] to [facility] where he continued another month of IV antibiotic treatment. He then followed with Dr. Snyder as an outpatient and continued to be managed with oral antibiotics the names of which he is not sure of but thinks one may have been Bactrim. He was seen in Dr. Snyder's office two weeks ago and was told he had normal labs and had completed his antibiotic treatment course. This past Thursday, patient went to see his PCP Dr. Hwang with complaints of "not feeling well" and increased low back pain. Patient states that Thursday he began having new right- sided back pain with extension into the right buttock and right inguinal area as well as numbness and tingling down the front of the right leg and an increase in left-sided back pain prompting him to come into the ED for further evaluation. Patient states he last used IV drugs May 2017. In the ED, patient is afebrile. White count is elevated at 19. Lactic acid is 0.7. He is tachycardic with heart rate of 95. Blood cultures are pending. MRI thoracic and lumbar spine shows evidence of osteomyelitis/discitis of lumbar spine, anterior epidural fluid collection/abscess at L2-3 that has decreased in size however circumferential epidural soft tissue enhancement has increased in severity and extent resulting in increased central canal stenosis most severe at L2-3. Also noted is a slight increase in size of left psoas abscess and new small right psoas abscess. CT of abdomen and pelvis reveals progressive endplate vertebral body destruction at L2-3 and L3 4 with increased soft tissue density paraspinous regions and retroperitoneum with adenopathy concerning for ongoing infections and discitis. Infectious disease has been consulted for evaluation and management of lumbar osteomyelitis/discitis. He was evaluated in CDU. He is asleep but easily awakens to voice. Appears comfortable while lying supine. He has no complaints of fever, chills, nausea, vomiting, dysuria or diarrhea. He denies any weakness of bilateral lower extremities, bowel or bladder incontinence or saddle anesthesia. He does report difficulty sitting up and turning over secondary to increase back and buttock pain. Neurosurgery has been consulted as well. Overnight events reviewed No fevers No rash No diarrhea. Antibiotics Cefepime IV Dapto IV Lines Line sites with no e.o infection Past Medical History reviewed Allergies: Coded Allergies: No Known Allergies (Unverified Allergy, Unknown, 09/12/17) Objective . Vital Signs Date Time Temp Pulse Resp B/P (MAP) Pulse Ox O2 Delivery O2 Flow Rate FiO2 09/14/17 12:09 97.3 51 16 122/66 (84) 98 09/14/17 08:14 97.1 16 16 107/62 (77) 98 09/14/17 04:32 56 09/14/17 04:00 97.4 65 18 118/64 (82) 95 09/14/17 00:36 98.3 56 18 100/62 (75) 98 09/14/17 00:19 58 09/13/17 21:11 100.0 67 18 119/59 (79) 97 09/13/17 20:00 72 . Laboratory Tests Test 09/12/17 21:20 09/13/17 10:24 09/14/17 06:55 White Blood Count 19.0 TH/MM3 12.5 TH/MM3 Red Blood Count 3.62 MIL/MM3 3.41 MIL/MM3 Hemoglobin 11.5 GM/DL 10.5 GM/DL Hematocrit 33.0 % 31.6 % Mean Corpuscular Volume 91.3 FL 92.5 FL Mean Corpuscular Hemoglobin 31.7 PG 30.8 PG Mean Corpuscular Hemoglobin Concent 34.7 % 33.3 % Red Cell Distribution Width 15.2 % 15.5 % Platelet Count 189 TH/MM3 160 TH/MM3 Mean Platelet Volume 8.2 FL 8.2 FL Neutrophils (%) (Auto) 74.2 % 70.9 % Lymphocytes (%) (Auto) 12.4 % 11.2 % Monocytes (%) (Auto) 12.7 % 16.1 % Eosinophils (%) (Auto) 0.3 % 1.5 % Basophils (%) (Auto) 0.4 % 0.3 % Neutrophils # (Auto) 14.1 TH/MM3 8.8 TH/MM3 Lymphocytes # (Auto) 2.4 TH/MM3 1.4 TH/MM3 Monocytes # (Auto) 2.4 TH/MM3 2.0 TH/MM3 Eosinophils # (Auto) 0.1 TH/MM3 0.2 TH/MM3 Basophils # (Auto) 0.1 TH/MM3 0.0 TH/MM3 CBC Comment DIFF FINAL DIFF FINAL Differential Comment Erythrocyte Sedimentation Rate 44 mm/hr Laboratory Tests Test 09/12/17 21:20 09/12/17 22:40 09/13/17 10:24 09/14/17 06:55 Blood Urea Nitrogen 29 MG/DL 16 MG/DL Creatinine 1.48 MG/DL 1.01 MG/DL Random Glucose 134 MG/DL 82 MG/DL Total Protein 7.2 GM/DL 5.9 GM/DL Albumin 3.4 GM/DL 2.4 GM/DL Calcium Level 8.9 MG/DL 8.6 MG/DL Alkaline Phosphatase 108 U/L 89 U/L Aspartate Amino Transf (AST/SGOT) 89 U/L 86 U/L Alanine Aminotransferase (ALT/SGPT) 85 U/L 74 U/L Total Bilirubin 1.0 MG/DL 0.8 MG/DL Sodium Level 135 MEQ/L 138 MEQ/L Potassium Level 3.4 MEQ/L 3.4 MEQ/L Chloride Level 102 MEQ/L 107 MEQ/L Carbon Dioxide Level 26.1 MEQ/L 21.3 MEQ/L Anion Gap 7 MEQ/L 10 MEQ/L Estimat Glomerular Filtration Rate 47 ML/MIN 73 ML/MIN Lactic Acid Level 0.7 mmol/L C-Reactive Protein 21.90 MG/DL Microbiology Date/Time Source Procedure Growth Status 09/12/17 22:40 Blood Peripheral Aerobic Blood Culture - Preliminary NO GROWTH IN 2 DAYS Resulted 09/12/17 22:40 Blood Peripheral Anaerobic Blood Culture - Preliminary NO GROWTH IN 2 DAYS Resulted 09/12/17 22:35 Blood Peripheral Aerobic Blood Culture - Preliminary NO GROWTH IN 2 DAYS Resulted 09/12/17 22:35 Blood Peripheral Anaerobic Blood Culture - Preliminary NO GROWTH IN 2 DAYS Resulted Imaging Last Impressions Abdomen/Pelvis CT 09/12/172114 Signed Impressions: Service Date/Time: Tuesday, September 12, 2017 22:42 - CONCLUSION: Progressive endplate and vertebral body destruction at the L2-L3 and L3-L4 levels with increased soft tissue density in the paraspinous regions and retroperitoneum with adenopathy all concerning for ongoing infection and discitis. The patient is scheduled for MRI examinations of the thoracic and lumbar spines. Giovanni Gomez MD Thoracic Spine MRI 09/12/17 Signed Impressions: Service Date/Time: Wednesday, September 13, 2017 00:02 - CONCLUSION: No significant interval change. No evidence of abscess in the thoracic spine region. Scott Morfin MD Lumbar Spine MRI 09/12/17 Signed Impressions: Service Date/Time: Wednesday, September 13, 2017 00:02 - CONCLUSION: Evidence of osteomyelitis/discitis of the lumbar spine again seen. The defined anterior epidural fluid collection/abscess at L2-3 has decreased in size. However the ill-defined circumferential epidural soft tissue enhancement has increased in severity and extent. This results in increased central canal stenosis, most severe at L2-3. Slight increase in size of left psoas abscess and new small right psoas abscess also noted. Scott Morfin MD Physical Exam GENERAL: This is a well-nourished, well-developed male patient, in no apparent distress. SKIN: No rashes, ecchymoses or lesions. Cool and dry. HEAD: Atraumatic. Normocephalic. No temporal or scalp tenderness. EYES: Pupils equal round and reactive. Extraocular motions intact. No scleral icterus. No injection or drainage. ENT: Nose without bleeding or purulent drainage. Throat without erythema, tonsillar hypertrophy or exudate. Uvula midline. Airway patent. No oral thrush. NECK: Trachea midline. No lymphadenopathy. Supple, nontender, no meningeal signs. CARDIOVASCULAR: Regular rate and rhythm without murmurs, gallops, or rubs. RESPIRATORY: Clear to auscultation. Breath sounds equal bilaterally. No wheezes , rales, or rhonchi. GASTROINTESTINAL: Abdomen soft, non-tender, nondistended. No hepato-splenomegaly , or palpable masses. No guarding. MUSCULOSKELETAL: Extremities without clubbing, cyanosis, or edema. No joint tenderness, effusion, or edema noted. No calf tenderness. Thoracic and lumbar spine nontender to palpation. Decreased range of motion lumbar spine surgery to pain. Pain elicited in the back and right inguinal area with knee flexion. NEUROLOGICAL: Awake and. Cranial nerves II through XII grossly intact. Motor and sensory grossly within normal limits. Five out of 5 muscle strength in all muscle groups. Normal speech. Psych cooperative Assessment & Plan Remarks Discitis/osteomyelitis L2 - L4 with subsequent central canal stenosis most severe L2-3 Psoas R muscle abscess. Acute renal failure: prerenal, sepsis. Abnormal LFts: Hepatitis, sepsis. Hyperglycemia uncontrolled DM, sepsis related. Elevated CRP Hx of MRSA bacteremia Hx of MRSA discitis Hx of MRSA left psoas abscess Hep C Hx of IVDU Atrial fibrillation Daily EtOH use Hx of renal failure while on Vancomycin Recs: Continue Cefepime IV Continue Daptomycin IV (ASP: failed Vanco, was on Dapto, may need further change based on cultures) diaz Waldron: Surgery on Thursday may have to team up with General Surgery. Follow cultures Follow clinically. Felicia Del Real MD Sep 14, 2017 16:27
[2017-09-14] MEDS: DAPTOmycin INJ 650 MG in SODIUM CHLORIDE 0.9% INJ 100 ML IV SCH (18:47)
[2017-09-14] MEDS: ALPRAZolam 0.5 MG TAB PO PRN (23:52)
[2017-09-15] VITALS (7 sets, daily range): BP systolic 129–151; BP diastolic 70–83; PULSE 66–77; RESP 16–18; TEMP 97.5–99.3; O2SAT 95–98
[2017-09-15] MEDS: METOPROLOL TARTRATE 25 MG TAB PO SCH ×3 (06:45→20:50)
[2017-09-15] MEDS: MORPHINE SULFATE 2 MG/ML SYRINGE IV PUSH PRN ×4 (06:52→19:22)
[2017-09-15] MEDS: MULTIVITAMIN TAB PO SCH (08:45)
[2017-09-15] MEDS: FOLIC ACID 1 MG TAB PO SCH (08:45)
[2017-09-15] MEDS: DIGOXIN 0.125 MG TAB PO SCH (08:45)
[2017-09-15] MEDS: CITALOPRAM HYDROBROMIDE 20 MG TAB PO SCH (08:45)
[2017-09-15] MEDS: DILTIAZEM HCL 90 MG TAB PO SCH ×4 (08:46→20:46)
[2017-09-15] MEDS: DOCUSATE SODIUM 50 MG/SENNA 8.6 MG TAB PO SCH ×2 (08:46→20:47)
[2017-09-15] MEDS: SODIUM CHLORIDE 0.9% FLUSH 10 ML FLUSH IV FLUSH SCH ×2 (08:46→20:46)
[2017-09-15] MEDS: PANTOPRAZOLE SOD 20 MG DELAYED RELEASE TAB PO SCH (08:46)
[2017-09-15] MEDS: THIAMINE HCL 100 MG TAB PO SCH (08:46)
[2017-09-15] MEDS: SODIUM CHLORIDE 0.9% FLUSH 10 ML FLUSH IV FLUSH PRN ×2 (10:18→19:22)
--- NOTE | 2017-09-15 11:21 | HHI.PR ---
Subjective Remarks Follow up Discitis/Osteo 09/14/17-patient seen and examined; complains of Back pain but denies any lower extremities weakness or numbness. Afebrile. Seen by NSG 09/15/17-patient seen and examined; still with back pain , but denies any bladder or bowel dysfunction. Objective Vitals Vital Signs Date Time Temp Pulse Resp B/P (MAP) Pulse Ox O2 Delivery O2 Flow Rate FiO2 09/15/17 08:54 68 09/15/17 08:21 97.5 77 17 145/73 (97) 95 09/15/17 04:00 99.3 72 18 135/76 (95) 96 09/15/17 00:00 99.2 66 18 129/70 (89) 96 09/14/17 20:00 98.4 70 19 134/69 (90) 96 09/14/17 16:23 97.5 57 18 130/66 (87) 97 09/14/17 12:09 97.3 51 16 122/66 (84) 98 09/14/17 12:00 52 I/O 09/14/17 09/14/17 09/14/17 09/15/17 09/15/17 09/15/17 07:00 15:00 23:00 07:00 15:00 23:00 Intake Total 240 ml Output Total 400 ml 350 ml 350 ml 650 ml Balance -400 ml -110 ml -350 ml -650 ml Intake Oral 240 ml Output Urine Total 400 ml 350 ml 350 ml 650 ml # Voids 1 # Bowel Movements 1 0 1 Result Diagram: 09/14/17 0655 09/14/17 0655 Imaging Last Impressions Abdomen/Pelvis CT 09/12/172114 Signed Impressions: Service Date/Time: Tuesday, September 12, 2017 22:42 - CONCLUSION: Progressive endplate and vertebral body destruction at the L2-L3 and L3-L4 levels with increased soft tissue density in the paraspinous regions and retroperitoneum with adenopathy all concerning for ongoing infection and discitis. The patient is scheduled for MRI examinations of the thoracic and lumbar spines. Giovanni Gomez MD Thoracic Spine MRI 09/12/17 0000 Signed Impressions: Service Date/Time: Wednesday, September 13, 2017 00:02 - CONCLUSION: No significant interval change. No evidence of abscess in the thoracic spine region. Scott Morfin MD Lumbar Spine MRI 09/12/17 0000 Signed Impressions: Service Date/Time: Wednesday, September 13, 2017 00:02 - CONCLUSION: Evidence of osteomyelitis/discitis of the lumbar spine again seen. The defined anterior epidural fluid collection/abscess at L2-3 has decreased in size. However the ill-defined circumferential epidural soft tissue enhancement has increased in severity and extent. This results in increased central canal stenosis, most severe at L2-3. Slight increase in size of left psoas abscess and new small right psoas abscess also noted. Scott Morfin MD Objective Remarks GENERAL: NAD SKIN: Warm and dry. HEAD: Normocephalic. EYES: No scleral icterus. No injection or drainage. NECK: Supple, trachea midline. No JVD or lymphadenopathy. CARDIOVASCULAR: Regular rate and rhythm without murmurs, gallops, or rubs. RESPIRATORY: Breath sounds equal bilaterally. No accessory muscle use. GASTROINTESTINAL: Abdomen soft, non-tender, nondistended. MUSCULOSKELETAL: No cyanosis, or edema. BACK: Nontender without obvious deformity. No CVA tenderness. A/P Problem List: (1) Discitis of lumbar region ICD Code: M46.46 - Discitis, unspecified, lumbar region (2) Psoas abscess ICD Code: K68.12 - Psoas muscle abscess (3) Intractable pain ICD Code: R52 - Pain, unspecified (4) Renal insufficiency ICD Code: N28.9 - Disorder of kidney and ureter, unspecified (5) A-fib ICD Code: I48.91 - Unspecified atrial fibrillation (6) IVDU (intravenous drug user) ICD Code: F19.90 - Other psychoactive substance use, unspecified, uncomplicated Assessment and Plan 66-year-old man with 1. L-Spine Discitis/Osteomyelitis: Recurrent. Appreciate input from neurosurgery and plan for surgical intervention this week Continue with Cubicin per ID and monitor culture report Pain management accordingly 2. Psoas Abscess: Previous Left Psoas Abscess s/p CT-guided drainage, now increase in size w/ new small right psoas abscess. appreciate input from neurosurgery 3. Intractable Pain: secondary to above, reports no relief w/ Tramadol, Continue PO/IV as needed 4. Renal Insufficiency: resolved 5. A. fib: continue home Digoxin, Metoprolol and Diltiazem. 6. IVDU: Denies recent use, last use May 2017 per patient, Ativan prn if needed. 7. DVT Prophylaxis: REY/Gm David MD Sep 15, 2017 11:21
--- NOTE | 2017-09-15 12:15 | HHI.NSPN ---
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 He has been followed by Dr. Krause from neurosurgery and infectious disease on inpatient and outpatient setting. Complains of recurrent and worsening back pain with intermittent pain rating down to the right leg and thigh and calf with intermittent numbness. Denies any weakness or incontinence. It is placed on tramadol but states this is not helping control his pain and therefore was scheduled to see a pain specialist later next week as well as a follow-up MRI scan. His back pain worsened and he presented to the emergency room last evening and MRI scan of the thoracic and lumbar spine obtained reveals extensive L1-2, L2-3 and L3-4 discitis with osteomyelitis along with a moderate spinal stenosis from epidural abscess along with psoas abscesses. When compared to the MRI scan in June of the stenosis appears to have progressed especially at the L2-3 level. He has been receiving Percocet and morphine for pain and appears to be comfortable with this regimen. 09/14: No significant change in back pain overnight. No ongoing pain and weakness or numbness in the lower extremities today. No complaints of bowel or bladder dysfunction. He states that his pain in the back, worse last week, with intermittent pain radiating to the lower extremities with ambulation. No neck pain or upper extremity pain weakness or numbness. 09/15: The patient is awake and alert in bed visiting with a friend when seen. He says he has pain to the back with movement. He did say last night he had some numbness and tingling going into the right lower extremity down to the toes after he came out of the MRI. He had severe pain to the back secondary to having to lay flat for the MRI. At present he has no numbness or tingling to the lower extremities and minimal back pain. His neuro exam is unchanged from yesterday. (Onur Montana) Exam Results 09/13/17 09/13/17 09/14/17 09/14/17 09/15/17 09/15/17 06:00 18:00 06:00 18:00 06:00 18:00 Intake Total 1667.5 ml 2500 ml 600 ml 240 ml Output Total 900 ml 450 ml 400 ml 350 ml 1000 ml Balance 1667.5 ml 1600 ml 150 ml -160 ml -350 ml -1000 ml Intake Oral 750 ml 500 ml 240 ml IV Total 1667.5 ml 1750 ml 100 ml Output Urine Total 900 ml 450 ml 400 ml 350 ml 1000 ml # Voids 1 # Bowel Movements 1 0 1 Vital Signs Date Time Temp Pulse Resp B/P (MAP) Pulse Ox O2 Delivery O2 Flow Rate FiO2 09/15/17 12:04 98.0 72 18 151/83 (105) 97 09/15/17 08:54 68 09/15/17 08:21 97.5 77 17 145/73 (97) 95 09/15/17 04:00 99.3 72 18 135/76 (95) 96 09/15/17 00:00 99.2 66 18 129/70 (89) 96 09/14/17 20:00 98.4 70 19 134/69 (90) 96 09/14/17 16:23 97.5 57 18 130/66 (87) 97 09/14/17 12:09 97.3 51 16 122/66 (84) 98 09/14/17 12:00 52 09/14/17 08:14 97.1 16 16 107/62 (77) 98 09/14/17 04:32 56 09/14/17 04:00 97.4 65 18 118/64 (82) 95 09/14/17 00:36 98.3 56 18 100/62 (75) 98 09/14/17 00:19 58 09/13/17 21:11 100.0 67 18 119/59 (79) 97 09/13/17 20:00 72 09/13/17 16:00 99.0 84 16 158/77 (104) 98 09/13/17 12:00 99.1 86 16 156/88 (110) 99 09/13/17 08:00 97.9 88 16 163/92 (115) 98 09/13/17 04:53 87 09/13/17 04:09 97.8 79 18 123/65 (84) 98 09/13/17 03:10 09/13/17 02:00 95 16 165/94 (117) 98 Room Air 09/13/17 00:55 90 16 170/90 (116) 97 Room Air 09/12/17 19:09 98.6 93 16 152/86 (108) 99 (Onur Montana) Physical Examination GENERAL: Awake & alert visiting with a friend. Normal affect. Readily interacts. No apparent distress. HEENT: Normocephalic. Atraumatic. MUSCULOSKELETAL: MCKEON spontaneously & purposefully w/o any difficulty. No evident clubbing or deformity. Midline thoracolumbar spine NTTP. NEUORLOGICAL: AAOx3. Speech clear & appropriate. Follow commands w/o difficulty. Sensation intact to light touch to the lower extremities. Muscle strength strong to all major flexion & extension muscle groups except for mild weakness to the left hamstring. (Onur Montana) Lab, Micro, Other Results Recent Impressions Abdomen/Pelvis CT 09/12/172114 Signed Impressions: Service Date/Time: Tuesday, September 12, 2017 22:42 - CONCLUSION: Progressive endplate and vertebral body destruction at the L2-L3 and L3-L4 levels with increased soft tissue density in the paraspinous regions and retroperitoneum with adenopathy all concerning for ongoing infection and discitis. The patient is scheduled for MRI examinations of the thoracic and lumbar spines. Giovanni Gomez MD Laboratory Tests Test 09/12/17 21:20 09/12/17 21:30 09/12/17 22:40 09/13/17 10:24 White Blood Count 19.0 TH/MM3 Red Blood Count 3.62 MIL/MM3 Hemoglobin 11.5 GM/DL Hematocrit 33.0 % Mean Corpuscular Volume 91.3 FL Mean Corpuscular Hemoglobin 31.7 PG Mean Corpuscular Hemoglobin Concent 34.7 % Red Cell Distribution Width 15.2 % Platelet Count 189 TH/MM3 Mean Platelet Volume 8.2 FL Neutrophils (%) (Auto) 74.2 % Lymphocytes (%) (Auto) 12.4 % Monocytes (%) (Auto) 12.7 % Eosinophils (%) (Auto) 0.3 % Basophils (%) (Auto) 0.4 % Neutrophils # (Auto) 14.1 TH/MM3 Lymphocytes # (Auto) 2.4 TH/MM3 Monocytes # (Auto) 2.4 TH/MM3 Eosinophils # (Auto) 0.1 TH/MM3 Basophils # (Auto) 0.1 TH/MM3 CBC Comment DIFF FINAL Differential Comment Prothrombin Time 10.9 SEC Prothromb Time International Ratio 1.1 RATIO Activated Partial Thromboplast Time 35.7 SEC Blood Urea Nitrogen 29 MG/DL Creatinine 1.48 MG/DL Random Glucose 134 MG/DL Total Protein 7.2 GM/DL Albumin 3.4 GM/DL Calcium Level 8.9 MG/DL Alkaline Phosphatase 108 U/L Aspartate Amino Transf (AST/SGOT) 89 U/L Alanine Aminotransferase (ALT/SGPT) 85 U/L Total Bilirubin 1.0 MG/DL Sodium Level 135 MEQ/L Potassium Level 3.4 MEQ/L Chloride Level 102 MEQ/L Carbon Dioxide Level 26.1 MEQ/L Anion Gap 7 MEQ/L Estimat Glomerular Filtration Rate 47 ML/MIN Urine Color YELLOW Urine Turbidity HAZY Urine pH 5.5 Urine Specific Darby 1.031 Urine Protein 30 mg/dL Urine Glucose (UA) NEG mg/dL Urine Ketones NEG mg/dL Urine Occult Blood TRACE Urine Nitrite NEG Urine Bilirubin NEG Urine Urobilinogen 2.0 MG/DL Urine Leukocyte Esterase SMALL Urine RBC 6 /hpf Urine WBC 6 /hpf Urine Squamous Epithelial Cells <1 /hpf Urine Bacteria RARE /hpf Urine Mucus FEW /lpf Microscopic Urinalysis Comment CULT NOT INDICATED Lactic Acid Level 0.7 mmol/L Erythrocyte Sedimentation Rate 44 mm/hr C-Reactive Protein 21.90 MG/DL Test 09/14/17 06:55 09/14/17 09:00 White Blood Count 12.5 TH/MM3 Red Blood Count 3.41 MIL/MM3 Hemoglobin 10.5 GM/DL Hematocrit 31.6 % Mean Corpuscular Volume 92.5 FL Mean Corpuscular Hemoglobin 30.8 PG Mean Corpuscular Hemoglobin Concent 33.3 % Red Cell Distribution Width 15.5 % Platelet Count 160 TH/MM3 Mean Platelet Volume 8.2 FL Neutrophils (%) (Auto) 70.9 % Lymphocytes (%) (Auto) 11.2 % Monocytes (%) (Auto) 16.1 % Eosinophils (%) (Auto) 1.5 % Basophils (%) (Auto) 0.3 % Neutrophils # (Auto) 8.8 TH/MM3 Lymphocytes # (Auto) 1.4 TH/MM3 Monocytes # (Auto) 2.0 TH/MM3 Eosinophils # (Auto) 0.2 TH/MM3 Basophils # (Auto) 0.0 TH/MM3 CBC Comment DIFF FINAL Differential Comment Blood Urea Nitrogen 16 MG/DL Creatinine 1.01 MG/DL Random Glucose 82 MG/DL Total Protein 5.9 GM/DL Albumin 2.4 GM/DL Calcium Level 8.6 MG/DL Alkaline Phosphatase 89 U/L Aspartate Amino Transf (AST/SGOT) 86 U/L Alanine Aminotransferase (ALT/SGPT) 74 U/L Total Bilirubin 0.8 MG/DL Sodium Level 138 MEQ/L Potassium Level 3.4 MEQ/L Chloride Level 107 MEQ/L Carbon Dioxide Level 21.3 MEQ/L Anion Gap 10 MEQ/L Estimat Glomerular Filtration Rate 73 ML/MIN Urine Opiates Screen POS Urine Barbiturates Screen NEG Urine Amphetamines Screen NEG Urine Benzodiazepines Screen POS Urine Cocaine Screen NEG Urine Cannabinoids Screen NEG (Onur Montana) Medical Decision Making Impression and Plan Impression: 1. Lumbar discitis and osteomyelitis. His most recent MRI imaging and CT scan of the abdomen images are reviewed by the undersigned today. There appears to be healing of the L3 4 disc space with possible spontaneous fusion across this level. At the L1-L2 level, there is diminished epidural abscess component compared to his previous MRI. At the L2-L3 level, there is significant destruction of the vertebral endplates and vertebral body adjacent to the L2-3 disc space. Previous epidural abscess component is resolved at this level, but there is increased granulation tissue with moderately severe canal stenosis. Significant bilateral psoas muscle abscess persists with a fluid component bilaterally, somewhat worse compared to the previous MRI scan. Patient is doing well. His pain is controlled on his current pain medication regimen. His neuro exam is stable. Plan: Primary management per Hospitalist. Antibiotics per Infectious Disease. Neuro checks. Plan to take the patient to the operating room on for debridement of the L2-3 level with stabilization. (Onur Montana) Attending Statement The exam, history, and the medical decision-making described in the above note were completed with the assistance of the mid-level provider. I reviewed and agree with the findings presented. I attest that I had a [id number] encounter with the patient on the same day, and personally performed and documented my assessment and findings in the medical record. After discussion with infectious disease yesterday, and considering the significant persistent paraspinous muscle abscess and persistent granulation tissue with stenosis at the primarily L2-3 level, I have recommended proceeding with L2-3 disc space debridement and intraoperative drainage of the psoas abscess. I discussed with him pros and cons of a posterior versus a lateral approach. He would like to proceed with surgery. Discussed with general surgery today. Plan is for surgery on 09/17/2017. Preoperative CT scan of the lumbar spine will be obtained. (José Antonio Krause MD) Onur Montana Sep 15, 2017 12:15 José Antonio Krause MD Sep 15, 2017 15:49
[2017-09-15] MEDS: DAPTOmycin INJ 650 MG in SODIUM CHLORIDE 0.9% INJ 100 ML IV SCH (17:36)
--- NOTE | 2017-09-15 20:17 | RADRPT ---
EXAM DATE/TIME: 09/15/2017 19:04 [facility] COMPARISON: MRI LUMBAR SPINE W & W/O CONTRAST, September 13, 2017, 0:02. INDICATIONS : Lower back pain, followup known osteomyelitis last discitis. RADIATION DOSE: 19.03 CTDIvol (mGy) MEDICAL HISTORY : Hypertension. Renal failure. Hep C. Substance abuse. Left psoas muscle abscess. SURGICAL HISTORY : None. ENCOUNTER: Subsequent ACUITY: 3 days PAIN SCALE: 10/10 LOCATION: Par[facility]inal TECHNIQUE: Volumetric scanning of the lumbar spine was performed. Multiplanar reconstructions in the sagittal, coronal and oblique axial planes were performed. Using automated exposure control and adjustment of the mA and/or kV according to patient size, radiation dose was kept as low as reasonably achievable t o obtain optimal diagnostic quality images. DICOM format image data is available electronically for review and comparison. FINDINGS: The sagittal reconstructions demonstrate mild reversal of the normal lumbar lordosis. Destructive harsh nges are again noted involving the L2, L3 and L4 vertebral bodies with patchy sclerosis, irregularity and apparent destructive change involving the endplates. Milder irregularity and sclerosis is noted involving the inferior endplate of L1 and the anterior superior aspect of L5. There is a mild scolios is again noted. The axial images again demonstrate a destructive change, sclerosis and irregularity. This is not appe ar significantly changed when compared to the recent MRI from 2 days ago. Paraspinal soft tissue swel ling is noted at the L2-L4 levels. There is a mild disc bulge at the L1-2 level with mild flattening of the anterior thecal sac. The L2 vertebral body is expanded with mass effect and flattening of the anterior thecal sac which is poorly defined. The anterior epidural fluid collection/abscess at the L2 -3 level on the MRI is not visualized.. At the L3-4 level there is a diffuse moderate disc bulge with apparent flattening of the thecal sac which is poorly defined. There are milder disc bulges at the L 4-5 and L5-S1 levels. The left psoas abscess is not well delineated The upper sacrum is intact. CONCLUSION: Osteomyelitis/discitis again noted which does not appear significantly changed from t he recent MRI but is not as well-visualized. This is greatest at the L2-3 level with mass effect on t he thecal sac which is poorly defined. On the MRI there was an anterior epidural fluid collection/abs cess at this level with mass effect on the thecal sac. Martin Desouza MD on September 15, 2017 at 20:02 Board Certified Radiologist. This report was verified electronically.
[2017-09-16] VITALS (8 sets, daily range): BP systolic 140–180; BP diastolic 76–94; PULSE 66–80; RESP 17–20; TEMP 97.2–99; O2SAT 96–99
[2017-09-16] MEDS ORDERED: PHARMACY ORDERED LAB ONE (00:45)
[2017-09-16] MEDS: PANTOPRAZOLE SOD 20 MG DELAYED RELEASE TAB PO SCH (08:45)
[2017-09-16] MEDS: METOPROLOL TARTRATE 25 MG TAB PO SCH ×3 (08:45→22:02)
[2017-09-16] MEDS: CITALOPRAM HYDROBROMIDE 20 MG TAB PO SCH (08:45)
[2017-09-16] MEDS: MORPHINE SULFATE 2 MG/ML SYRINGE IV PUSH PRN ×4 (08:46→22:05)
[2017-09-16] MEDS: MULTIVITAMIN TAB PO SCH (08:46)
[2017-09-16] MEDS: DIGOXIN 0.125 MG TAB PO SCH (08:46)
[2017-09-16] MEDS: DILTIAZEM HCL 90 MG TAB PO SCH ×4 (08:46→22:02)
[2017-09-16] MEDS: FOLIC ACID 1 MG TAB PO SCH (08:46)
[2017-09-16] MEDS: DOCUSATE SODIUM 50 MG/SENNA 8.6 MG TAB PO SCH ×2 (08:46→22:02)
[2017-09-16] MEDS: THIAMINE HCL 100 MG TAB PO SCH (08:46)
[2017-09-16] MEDS: SODIUM CHLORIDE 0.9% FLUSH 10 ML FLUSH IV FLUSH SCH ×3 (08:47→22:24)
--- NOTE | 2017-09-16 10:12 | HHI.PR ---
Subjective Remarks Follow up Discitis/Osteo 09/14/17-patient seen and examined; complains of Back pain but denies any lower extremities weakness or numbness. Afebrile. Seen by NSG 09/15/17-patient seen and examined; still with back pain , but denies any bladder or bowel dysfunction. 09/16/17-patient seen and examined; no change in the level of back pain. afebrile. States he is waiting to go to the OR tomorrow Objective Vitals Vital Signs Date Time Temp Pulse Resp B/P (MAP) Pulse Ox O2 Delivery O2 Flow Rate FiO2 09/16/17 09:28 97.2 78 20 180/94 (122) 98 09/16/17 04:00 97.4 74 18 169/86 (113) 96 09/16/17 00:17 99.0 66 18 146/77 (100) 97 09/15/17 20:44 18 09/15/17 20:00 98.4 68 18 146/71 (96) 97 09/15/17 16:39 98.7 69 16 141/80 (100) 98 09/15/17 12:04 98.0 72 18 151/83 (105) 97 I/O 09/15/17 09/15/17 09/15/17 09/16/17 09/16/17 09/16/17 07:00 15:00 23:00 07:00 15:00 23:00 Output Total 350 ml 650 ml 350 ml 200 ml Balance -350 ml -650 ml -350 ml -200 ml Output Urine Total 350 ml 650 ml 350 ml 200 ml # Bowel Movements 0 1 0 0 Result Diagram: 09/14/17 0655 09/14/17 0655 Objective Remarks GENERAL: NAD SKIN: Warm and dry. HEAD: Normocephalic. EYES: No scleral icterus. No injection or drainage. NECK: Supple, trachea midline. No JVD or lymphadenopathy. CARDIOVASCULAR: Regular rate and rhythm without murmurs, gallops, or rubs. RESPIRATORY: Breath sounds equal bilaterally. No accessory muscle use. GASTROINTESTINAL: Abdomen soft, non-tender, nondistended. MUSCULOSKELETAL: No cyanosis, or edema. BACK: Nontender without obvious deformity. No CVA tenderness. A/P Problem List: (1) Discitis of lumbar region ICD Code: M46.46 - Discitis, unspecified, lumbar region (2) Psoas abscess ICD Code: K68.12 - Psoas muscle abscess (3) Intractable pain ICD Code: R52 - Pain, unspecified (4) Renal insufficiency ICD Code: N28.9 - Disorder of kidney and ureter, unspecified (5) A-fib ICD Code: I48.91 - Unspecified atrial fibrillation (6) IVDU (intravenous drug user) ICD Code: F19.90 - Other psychoactive substance use, unspecified, uncomplicated Assessment and Plan 66-year-old man with 1. L-Spine Discitis/Osteomyelitis: Recurrent. Appreciate input from neurosurgery and plan for debridement of the L2-3 level with stabilization tomorrow 09/17/17 Continue with Cubicin per ID and monitor culture report Pain management accordingly 2. Psoas Abscess: Previous Left Psoas Abscess s/p CT-guided drainage, now increase in size w/ new small right psoas abscess. appreciate input from neurosurgery 3. Intractable Pain: secondary to above, reports no relief w/ Tramadol, Continue PO/IV as needed 4. Renal Insufficiency: resolved 5. A. fib: continue home Digoxin, Metoprolol and Diltiazem. 6. IVDU: Denies recent use, last use May 2017 per patient, Ativan prn if needed. 7. DVT Prophylaxis: SCD/Gm David MD Sep 16, 2017 10:12
--- NOTE | 2017-09-16 12:01 | HHI.NSPN ---
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 He has been followed by Dr. Krause from neurosurgery and infectious disease on inpatient and outpatient setting. Complains of recurrent and worsening back pain with intermittent pain rating down to the right leg and thigh and calf with intermittent numbness. Denies any weakness or incontinence. It is placed on tramadol but states this is not helping control his pain and therefore was scheduled to see a pain specialist later next week as well as a follow-up MRI scan. His back pain worsened and he presented to the emergency room last evening and MRI scan of the thoracic and lumbar spine obtained reveals extensive L1-2, L2-3 and L3-4 discitis with osteomyelitis along with a moderate spinal stenosis from epidural abscess along with psoas abscesses. When compared to the MRI scan in June of the stenosis appears to have progressed especially at the L2-3 level. He has been receiving Percocet and morphine for pain and appears to be comfortable with this regimen. 09/14: No significant change in back pain overnight. No ongoing pain and weakness or numbness in the lower extremities today. No complaints of bowel or bladder dysfunction. He states that his pain in the back, worse last week, with intermittent pain radiating to the lower extremities with ambulation. No neck pain or upper extremity pain weakness or numbness. 09/15: The patient is awake and alert in bed visiting with a friend when seen. He says he has pain to the back with movement. He did say last night he had some numbness and tingling going into the right lower extremity down to the toes after he came out of the MRI. He had severe pain to the back secondary to having to lay flat for the MRI. At present he has no numbness or tingling to the lower extremities and minimal back pain. His neuro exam is unchanged from yesterday. 09/16: This morning the patient continues to do well. He has low back pain with movement. He says he feels he is getting weaker. He denies any pain, numbness or tingling to the extremities. Upon examination he does seem slightly weaker to the left lower extremity. (Onur Montana) Exam Results 09/14/17 09/14/17 09/15/17 09/15/17 09/16/17 09/16/17 06:00 18:00 06:00 18:00 06:00 18:00 Intake Total 600 ml 240 ml Output Total 450 ml 400 ml 350 ml 1000 ml 550 ml Balance 150 ml -160 ml -350 ml -1000 ml -550 ml Intake Oral 500 ml 240 ml IV Total 100 ml Output Urine Total 450 ml 400 ml 350 ml 1000 ml 550 ml # Voids 1 # Bowel Movements 1 0 1 0 Vital Signs Date Time Temp Pulse Resp B/P (MAP) Pulse Ox O2 Delivery O2 Flow Rate FiO2 09/16/17 09:28 97.2 78 20 180/94 (122) 98 09/16/17 04:00 97.4 74 18 169/86 (113) 96 09/16/17 00:17 99.0 66 18 146/77 (100) 97 09/15/17 20:44 18 09/15/17 20:00 98.4 68 18 146/71 (96) 97 09/15/17 16:39 98.7 69 16 141/80 (100) 98 09/15/17 12:04 98.0 72 18 151/83 (105) 97 09/15/17 08:54 68 09/15/17 08:21 97.5 77 17 145/73 (97) 95 09/15/17 04:00 99.3 72 18 135/76 (95) 96 09/15/17 00:00 99.2 66 18 129/70 (89) 96 09/14/17 20:00 98.4 70 19 134/69 (90) 96 09/14/17 16:23 97.5 57 18 130/66 (87) 97 09/14/17 12:09 97.3 51 16 122/66 (84) 98 09/14/17 12:00 52 09/14/17 08:14 97.1 16 16 107/62 (77) 98 09/14/17 04:32 56 09/14/17 04:00 97.4 65 18 118/64 (82) 95 09/14/17 00:36 98.3 56 18 100/62 (75) 98 09/14/17 00:19 58 09/13/17 21:11 100.0 67 18 119/59 (79) 97 09/13/17 20:00 72 09/13/17 16:00 99.0 84 16 158/77 (104) 98 09/13/17 12:00 99.1 86 16 156/88 (110) 99 (Onur Montana) Physical Examination GENERAL: Awake & alert in bed. Affect slightly flat. Readily interacts. No apparent distress. HEENT: Normocephalic. Atraumatic. MUSCULOSKELETAL: MCKEON spontaneously & purposefully w/o any difficulty. No evident clubbing or deformity. Midline thoracolumbar spine NTTP. NEUORLOGICAL: AAOx3. Speech clear & appropriate. Follow commands w/o difficulty. Sensation intact to light touch to the lower extremities. Muscle strength 4 to 4+/5 to left hamstring & quadriceps o/w 5/5 to all major flexion & extension muscle groups of the lower extremities. (Onur Montana) Lab, Micro, Other Results Recent Impressions Lumbar Spine CT 09/15/17 0000 Signed Impressions: Service Date/Time: Friday, September 15, 2017 19:04 - CONCLUSION: Osteomyelitis/discitis again noted which does not appear significantly changed from the recent MRI but is not as well-visualized. This is greatest at the L2- 3 level with mass effect on the thecal sac which is poorly defined. On the MRI there was an anterior epidural fluid collection/abscess at this level with mass effect on the thecal sac. Martin Desouza MD Laboratory Tests Test 09/14/17 06:55 09/14/17 09:00 White Blood Count 12.5 TH/MM3 Red Blood Count 3.41 MIL/MM3 Hemoglobin 10.5 GM/DL Hematocrit 31.6 % Mean Corpuscular Volume 92.5 FL Mean Corpuscular Hemoglobin 30.8 PG Mean Corpuscular Hemoglobin Concent 33.3 % Red Cell Distribution Width 15.5 % Platelet Count 160 TH/MM3 Mean Platelet Volume 8.2 FL Neutrophils (%) (Auto) 70.9 % Lymphocytes (%) (Auto) 11.2 % Monocytes (%) (Auto) 16.1 % Eosinophils (%) (Auto) 1.5 % Basophils (%) (Auto) 0.3 % Neutrophils # (Auto) 8.8 TH/MM3 Lymphocytes # (Auto) 1.4 TH/MM3 Monocytes # (Auto) 2.0 TH/MM3 Eosinophils # (Auto) 0.2 TH/MM3 Basophils # (Auto) 0.0 TH/MM3 CBC Comment DIFF FINAL Differential Comment Blood Urea Nitrogen 16 MG/DL Creatinine 1.01 MG/DL Random Glucose 82 MG/DL Total Protein 5.9 GM/DL Albumin 2.4 GM/DL Calcium Level 8.6 MG/DL Alkaline Phosphatase 89 U/L Aspartate Amino Transf (AST/SGOT) 86 U/L Alanine Aminotransferase (ALT/SGPT) 74 U/L Total Bilirubin 0.8 MG/DL Sodium Level 138 MEQ/L Potassium Level 3.4 MEQ/L Chloride Level 107 MEQ/L Carbon Dioxide Level 21.3 MEQ/L Anion Gap 10 MEQ/L Estimat Glomerular Filtration Rate 73 ML/MIN Urine Opiates Screen POS Urine Barbiturates Screen NEG Urine Amphetamines Screen NEG Urine Benzodiazepines Screen POS Urine Cocaine Screen NEG Urine Cannabinoids Screen NEG (Onur Montana) Medical Decision Making Impression and Plan Impression: 1. Lumbar discitis and osteomyelitis. His most recent MRI imaging and CT scan of the abdomen images are reviewed by the undersigned today. There appears to be healing of the L3 4 disc space with possible spontaneous fusion across this level. At the L1-L2 level, there is diminished epidural abscess component compared to his previous MRI. At the L2-L3 level, there is significant destruction of the vertebral endplates and vertebral body adjacent to the L2-3 disc space. Previous epidural abscess component is resolved at this level, but there is increased granulation tissue with moderately severe canal stenosis. Significant bilateral psoas muscle abscess persists with a fluid component bilaterally, somewhat worse compared to the previous MRI scan. Patient continues to do well. His pain remains controlled. Slight weakness to hamstring & quadriceps on left o/w stable exam. CT lumbar spine demonstrated osteomyelitis/discitis w/o significant change. Greatest at L2-3 level w/mass effect poorly defined on the thecal sac. Plan: Primary management per Hospitalist. Antibiotics per Infectious Disease. Neuro checks. Plan to take the patient to the operating room on for L2-3 disc space debridement and intraoperative drainage of the psoas abscess. (Onur Montana) Attending Statement The exam, history, and the medical decision-making described in the above note were completed with the assistance of the mid-level provider. I reviewed and agree with the findings presented. I attest that I had a [id number] encounter with the patient on the same day, and personally performed and documented my assessment and findings in the medical record. (Peter Calix MD) Onur Montana Sep 16, 2017 12:01 Peter Calix MD Sep 20, 2017 20:35
[2017-09-16] MEDS: SODIUM CHLORIDE 0.9% FLUSH 10 ML FLUSH IV FLUSH PRN (12:38)
--- NOTE | 2017-09-16 12:52 | PD.CAR.PN ---
CVT Progress Note Subjective/Hospital Course: 09/16/2017 Patient evaluated Full consult dictated We will be available for surgery tomorrow Thanks J Objective: Vital Signs Date Time Temp Pulse Resp B/P (MAP) Pulse Ox O2 Delivery O2 Flow Rate FiO2 09/16/17 12:17 97.7 73 20 152/89 (110) 99 09/16/17 09:28 97.2 78 20 180/94 (122) 98 09/16/17 04:00 97.4 74 18 169/86 (113) 96 09/16/17 00:17 99.0 66 18 146/77 (100) 97 09/15/17 20:44 18 09/15/17 20:00 98.4 68 18 146/71 (96) 97 09/15/17 16:39 98.7 69 16 141/80 (100) 98 Result Diagram: 09/14/17 0655 09/14/17 0655 Caden Morales MD Sep 16, 2017 12:52
[2017-09-16] MEDS: DAPTOmycin INJ 650 MG in SODIUM CHLORIDE 0.9% INJ 100 ML IV SCH (18:11)
[2017-09-16] MEDS: ALPRAZolam 0.5 MG TAB PO PRN ×2 (22:23→22:24)
[2017-09-17] VITALS (7 sets, daily range): BP systolic 110–158; BP diastolic 64–90; PULSE 66–100; RESP 16–20; TEMP 97.6–98.2; O2SAT 97–98
[2017-09-17] MEDS: SODIUM CHLORIDE 0.9% FLUSH 10 ML FLUSH IV FLUSH PRN (02:41)
[2017-09-17] MEDS: MORPHINE SULFATE 2 MG/ML SYRINGE IV PUSH PRN ×2 (02:41→11:00)
[2017-09-17] MEDS ORDERED: CHLORHEXIDINE GLUCONATE 2 % 1 PACK (2 CLOTHS) TOPICAL PRN (05:15)
[2017-09-17] MEDS ORDERED: SODIUM CHLORID 0.9% 500 ML IV PRN (05:15)
[2017-09-17] MEDS ORDERED: LACTATED RINGER'S 1000 ML IV PRN (05:15)
[2017-09-17] MEDS ORDERED: POVIDONE IODINE 5% (ANTISEPSIS KIT) 4 APPLICATIONS EACH NARE PRN (05:15)
[2017-09-17] MEDS: METOPROLOL TARTRATE 25 MG TAB PO SCH ×2 (06:42→22:35)
[2017-09-17] MEDS: SODIUM CHLORIDE 0.9% FLUSH 10 ML FLUSH IV FLUSH SCH ×2 (09:00→22:47)
--- NOTE | 2017-09-17 10:24 | HHI.PR ---
Subjective Remarks Follow up Discitis/Osteo 09/14/17-patient seen and examined; complains of Back pain but denies any lower extremities weakness or numbness. Afebrile. Seen by NSG 09/15/17-patient seen and examined; still with back pain , but denies any bladder or bowel dysfunction. 09/16/17-patient seen and examined; no change in the level of back pain. afebrile. States he is waiting to go to the OR tomorrow 09/17/17-Patient seen and examined, NPO pending surgical intervention today. Still with back pain Objective Vitals Vital Signs Date Time Temp Pulse Resp B/P (MAP) Pulse Ox O2 Delivery O2 Flow Rate FiO2 09/17/17 08:09 98.1 66 20 139/79 (99) 98 09/17/17 04:15 98.2 68 16 123/66 (85) 97 09/17/17 00:00 97.6 74 17 110/64 (79) 97 09/16/17 23:57 68 09/16/17 20:45 98.2 80 17 140/79 (99) 98 09/16/17 20:00 78 09/16/17 15:40 97.6 74 20 148/76 (100) 97 09/16/17 12:17 97.7 73 20 152/89 (110) 99 I/O 09/16/17 09/16/17 09/16/17 09/17/17 09/17/17 09/17/17 07:00 15:00 23:00 07:00 15:00 23:00 Intake Total 1270 ml 600 ml Output Total 200 ml 300 ml 375 ml 625 ml Balance -200 ml -300 ml 895 ml -25 ml Intake Oral 1270 ml 500 ml IV Total 100 ml Output Urine Total 200 ml 300 ml 375 ml 625 ml # Bowel Movements 0 0 0 Result Diagram: 09/14/17 0655 09/14/17 0655 Imaging Last Impressions Lumbar Spine CT 09/15/17 0000 Signed Impressions: Service Date/Time: Friday, September 15, 2017 19:04 - CONCLUSION: Osteomyelitis/discitis again noted which does not appear significantly changed from the recent MRI but is not as well-visualized. This is greatest at the L2- 3 level with mass effect on the thecal sac which is poorly defined. On the MRI there was an anterior epidural fluid collection/abscess at this level with mass effect on the thecal sac. Martin Desouza MD Abdomen/Pelvis CT [id number] Signed Impressions: Service Date/Time: Tuesday, September 12, 2017 22:42 - CONCLUSION: Progressive endplate and vertebral body destruction at the L2-L3 and L3-L4 levels with increased soft tissue density in the paraspinous regions and retroperitoneum with adenopathy all concerning for ongoing infection and discitis. The patient is scheduled for MRI examinations of the thoracic and lumbar spines. Giovanni Gomez MD Thoracic Spine MRI 09/12/17 0000 Signed Impressions: Service Date/Time: Wednesday, September 13, 2017 00:02 - CONCLUSION: No significant interval change. No evidence of abscess in the thoracic spine region. Scott Morfin MD Lumbar Spine MRI 09/12/17 0000 Signed Impressions: Service Date/Time: Wednesday, September 13, 2017 00:02 - CONCLUSION: Evidence of osteomyelitis/discitis of the lumbar spine again seen. The defined anterior epidural fluid collection/abscess at L2-3 has decreased in size. However the ill-defined circumferential epidural soft tissue enhancement has increased in severity and extent. This results in increased central canal stenosis, most severe at L2-3. Slight increase in size of left psoas abscess and new small right psoas abscess also noted. Scott Morfin MD Objective Remarks GENERAL: NAD SKIN: Warm and dry. HEAD: Normocephalic. EYES: No scleral icterus. No injection or drainage. NECK: Supple, trachea midline. No JVD or lymphadenopathy. CARDIOVASCULAR: Regular rate and rhythm without murmurs, gallops, or rubs. RESPIRATORY: Breath sounds equal bilaterally. No accessory muscle use. GASTROINTESTINAL: Abdomen soft, non-tender, nondistended. MUSCULOSKELETAL: No cyanosis, or edema. BACK: Nontender without obvious deformity. No CVA tenderness. A/P Problem List: (1) Discitis of lumbar region ICD Code: M46.46 - Discitis, unspecified, lumbar region (2) Psoas abscess ICD Code: K68.12 - Psoas muscle abscess (3) Intractable pain ICD Code: R52 - Pain, unspecified (4) Renal insufficiency ICD Code: N28.9 - Disorder of kidney and ureter, unspecified (5) A-fib ICD Code: I48.91 - Unspecified atrial fibrillation (6) IVDU (intravenous drug user) ICD Code: F19.90 - Other psychoactive substance use, unspecified, uncomplicated Assessment and Plan 66-year-old man with 1. L-Spine Discitis/Osteomyelitis: Recurrent. Appreciate input from neurosurgery and plan for surgical intervention today 05/25 Continue with Cubicin per ID and monitor culture report Pain management accordingly 2. Psoas Abscess: Previous Left Psoas Abscess s/p CT-guided drainage, now increase in size w/ new small right psoas abscess. appreciate input from neurosurgery 3. Intractable Pain: secondary to above, reports no relief w/ Tramadol, Continue PO/IV as needed 4. Renal Insufficiency: resolved 5. A. fib: continue home Digoxin, Metoprolol and Diltiazem. 6. IVDU: Denies recent use, last use May 2017 per patient, Ativan prn if needed. 7. DVT Prophylaxis: SCD/Gm David MD Sep 17, 2017 10:24
[2017-09-17] MEDS: FOLIC ACID 1 MG TAB PO SCH (10:57)
[2017-09-17] MEDS: THIAMINE HCL 100 MG TAB PO SCH (10:57)
[2017-09-17] MEDS: MULTIVITAMIN TAB PO SCH (10:57)
[2017-09-17] MEDS: CITALOPRAM HYDROBROMIDE 20 MG TAB PO SCH (10:57)
[2017-09-17] MEDS: DOCUSATE SODIUM 50 MG/SENNA 8.6 MG TAB PO SCH ×2 (10:58→22:35)
[2017-09-17] MEDS: DIGOXIN 0.125 MG TAB PO SCH (10:58)
[2017-09-17] MEDS: PANTOPRAZOLE SOD 20 MG DELAYED RELEASE TAB PO SCH (10:58)
[2017-09-17] MEDS: DILTIAZEM HCL 90 MG TAB PO SCH ×2 (10:58→22:35)
[2017-09-17] MEDS ORDERED: ARTIFICIAL TEARS OPTH OINT 3.5 APPLIC/3.5 GM TUBO ONE (11:17)
[2017-09-17] MEDS ORDERED: BUPIVACAINE LIPOSOME PF 1.3% 20 ML VIAL ONE (11:50)
[2017-09-17] MEDS ORDERED: LACTATED RINGER'S 1000 ML INJ 5,000 ML IV ONE (12:00)
[2017-09-17] MEDS ORDERED: ePHEDrine/NS 25 MG/5 ML SYRINGE IV ONE (12:00)
[2017-09-17] MEDS ORDERED: ceFAZolin INJ 1,000 MG VIAL IV ONE (12:00)
[2017-09-17] MEDS ORDERED: PHENYLEPH/NS 1000 MCG/10 ML SYR IV ONE (12:00)
[2017-09-17] MEDS ORDERED: DEXAMETHASONE SOD PHOS 4 MG/ML VIAL IV ONE (12:00)
[2017-09-17] MEDS ORDERED: PROPOFOL 200 MG/20 ML AMP IV ONE (12:00)
[2017-09-17] MEDS ORDERED: LIDOCAINE HCL 1% PF 5 ML SYRINGE OTHER ONE (12:00)
[2017-09-17] MEDS ORDERED: ROCURONIUM INJ 50 MG/5 ML SYRINGE IV PUSH ONE (12:00)
[2017-09-17] MEDS ORDERED: GLYCOPYRROLATE 1 MG/5 ML SYRINGE IV PUSH ONE (12:00)
[2017-09-17] MEDS ORDERED: NEOSTIGMINE 5 MG/5 ML SYRINGE IV PUSH ONE (12:00)
[2017-09-17] MEDS ORDERED: LIDOCAINE 1%/EPINEPHrine 1:100,000 SOLN 30 ML VIAL ONE (12:08)
[2017-09-17] MEDS ORDERED: GELFOAM SIZE 100 ONE (12:08)
[2017-09-17] MEDS ORDERED: THROMBIN (TOPICAL) 5,000 UNIT VIAL ONE (12:08)
[2017-09-17] MEDS ORDERED: GENTAMICIN SULFATE 80 MG/2 ML VIAL ONE (12:08)
[2017-09-17] MEDS ORDERED: VANCOMYCIN HCL 1000 MG VIAL ONE (15:20)
[2017-09-17] MEDS ORDERED: PROPOFOL 500 MG/50 ML INJ 0 ML ONE (16:55)
[2017-09-17] MEDS ORDERED: fentaNYL CITRATE 250 MCG/5 ML AMP ONE (16:55)
[2017-09-17] MEDS ORDERED: MIDAZOLAM HCL 2 MG/2 ML VIAL ONE (17:08)
[2017-09-17] MEDS ORDERED: MORPHINE SULFATE 4 MG/ML INJ ONE (17:09)
[2017-09-17] MEDS: DAPTOmycin INJ 650 MG in SODIUM CHLORIDE 0.9% INJ 100 ML IV SCH (18:10)
[2017-09-17] MEDS ORDERED: DO NOT ADM ANY ANTICOAGULANT DRUGS PRN (20:04)
[2017-09-17] MEDS ORDERED: ONDANSETRON HCL 4 MG/2 ML VIAL IV PUSH PRN (20:30)
[2017-09-17] MEDS ORDERED: NALOXONE HCL 0.4 MG/ML AMP IV PUSH PRN (20:45)
[2017-09-17] MEDS ORDERED: MORPHINE SULFATE 2 MG/ML SYRINGE IV PUSH PRN (20:45)
[2017-09-17] MEDS ORDERED: *morphine SULFATE 4 MG/ML PERIprocedure ONLY ONE (21:22)
--- NOTE | 2017-09-17 21:30 | PD.OP ---
Operative Report Date of Surgery: Sep 17, 2017 Preoperative Diagnosis: (1) Septic discitis of lumbar region (2) Psoas abscess Lumbar discitis, residual at L2-L3 level Bilateral L2-3 level psoas muscle abscess Postoperative Diagnosis: (1) Septic discitis of lumbar region (2) Psoas abscess Lumbar discitis, residual at L2-L3 level Bilateral L2-3 level psoas muscle abscess Procedure: Procedure #1: 1. Extreme lateral, trans-psoas approach with left T11 rib resection, debridement [id number]-osteomyelitis 2. Extreme lateral approach to bilateral psoas muscle abscess evacuation. 3. L2-3 interbody fusion with PEEK lateral cage, left T11 rib autograft Procedure #2, via separate incision following repositionin. Bilateral L2-L4 posterior spinal instrumentation with percutaneous pedicle screw fixation. Anesthesia: General Surgeon: José Antonio Morales Stock Puller(s): Bijal Lo Operation and Findings: Findings: Large amount of loculated abscess bilateral L2-3 level psoas muscle Procedure in detail: Patient brought to the operating room general endotracheal anesthesia induced without difficulty. Lines were established for anesthesia SANA hose and sequential compression devices placed Beauchamp catheter in place Procedure #1: Patient was placed in lateral decubitus position with the right side down on the Sylvain table. The patient was secured to the operating room table with the hips flexed, and the bed flexed at the upper lumbar region to allow better access to the L2-3 level. The left back flank and abdomen were prepped and draped in a sterile fashion. Timeout procedure was performed with all personnel present in agreement. The intraoperative c arm was used to determine the midpoint of the C2-3 interspace on the lateral lumbar spine view and this was marked on the skin. Incision was made over this jodee. Dr Morales assisted with the initial rib removal and dissection down to the lateral left psoas muscle at the L2-3 level. The fibers of the superficial and deep oblique muscles and transversus abdominis were . The distal aspect of the 11th rib was obscuring the trajectory and was freed up from the surrounding tissue and removed and saved for allograft bone. Finger dissection through the retroperitoneal adipose tissue was utilized to expose the lateral margin of the left psoas muscle. The fibers were . At the mid to deep aspect of the muscle the capsule of the abscess was encountered and once opened a very large amount of purulent abscess drainage was encountered and removed with suction and irrigation. This was sent for routine microbiology specimen. The microscope was brought into place and use for direct visualization of the left psoas muscle dissection. Direct intraoperative EMG was utilized during the dissection to make certain that no motor nerve fibers were compromised. The lateral initial dilator was then docked at the midpoint of the lateral left L2-3 interspace and the dilators used to dilate the surrounding tissue followed by placement of the far lateral retractor which was secured with the mechanical arm. The retractor position was checked with AP and lateral C-arm imaging. Microscope was utilized to visualize the clean out extensive amount of debris at the L2-3 interspace including necrotic appearing disc tissue and bone fragments. This was performed with straight and angled curettes and disc space preparation tools. This was performed with C-arm visualization to determine the extent of the debridement. Once the disc space was cleaned of any debris, the right medial psoas muscle was dissected and additional portion of abscess evacuated with suction and irrigation until clear. The 12 mm by 45 x 18 Abacus PEEK cage filled with morcellated left 11th rib repaired in the bone mineral with additional vancomycin powder was then placed at the L2-3 interspace with AP and lateral C-arm imaging. Additional vancomycin powder was placed at the area of the left psoas muscle abscess. All structures were carefully checked. There is no evidence of violation of the peritoneum or the pleura. The region was closed with 2-0 Vicryl interrupted for the deep and superficial fascia, 3-0 Vicryl subcutaneous closure, 4-0 Vicryl running septicum closure. Dressing of sterile benzoin Steri-Strips Primapore applied. Procedure #2, via separate incision and positioning: The patient was repositioned, turned into prone position on the concentric Sylvain table with the side bolsters, all extremities appropriately padded. Lumbar region was prepped and draped in a sterile fashion 1% Xylocaine was used for local infiltration over the incision site which remained approximately 3-4 cm lateral to the midline at the bilateral L2 and L4 levels. The right L2 pedicle was very small, but an initial trajectory staying towards the lateral aspect of the pedicle was utilized to place a screw at this level. Using AP and lateral C-arm imaging, the Jamshidi needles were placed through the bilateral L2 and L4 pedicles. The guidewires were placed and the needle cannula removed. The pedicle was prepared with the 4 mm tap at each level. The 4.5 x 35 mm and 4.5 x 40 mm screws were placed at the L2 level with the 4.5 and 5.5 x 40 mm screws at the L4 level. 75 mm percutaneous indy was then placed across the pedicle screws at each level and the locking cap secured and final tightened with the torque ross carrier driver and antitorque device. The incisions were closed with 2-0 Vicryl for the deep and superficial fascia, 3 -0 Vicryl subcutaneous, 4-0 Vicryl running subcuticular. Dressings sterile Mastisol, Steri-Strips, bacteriocidal dressing applied. Patient was taken to recovery room in stable condition All counts correct at the end of the case Estimated blood loss 300 cc Specimen of the psoas abscess sent for routine microbiology. Intraoperative neuro monitoring including stimulation of the pedicle screws was satisfactory during the procedure. José Antonio Krause MD Sep 17, 2017 21:30
[2017-09-17] MEDS: 1/2 NS + KCL 20 MEQ INJ 1,000 ML IV SCH (22:46)
[2017-09-18] VITALS: BP 145/81; PULSE 83; RESP 18; TEMP 97.6; O2SAT 97
[2017-09-18] MEDS: ALPRAZolam 0.5 MG TAB PO PRN (00:59)
[2017-09-18] MEDS: MORPHINE SULFATE 2 MG/ML SYRINGE IV PUSH PRN (00:59)
[2017-09-18] MEDS: HYDROmorphone HCL 2 MG TAB PO PRN ×4 (03:37→20:44)
[2017-09-18 04:00] VITALS: BP 133/70; PULSE 88; RESP 18; TEMP 97.1; O2SAT 99
[2017-09-18] MEDS: METHOCARBAMOL 500 MG TAB PO PRN ×2 (05:46→20:44)
[2017-09-18] MEDS: METOPROLOL TARTRATE 25 MG TAB PO SCH ×3 (05:46→20:43)
[2017-09-18] MEDS: 1/2 NS + KCL 20 MEQ INJ 1,000 ML IV SCH ×2 (05:48→13:30)
[2017-09-18] MEDS: CEFEPIME INJ 1,000 MG in SODIUM CHLORIDE 0.9% INJ 100 ML IV SCH ×2 (05:52→16:29)
--- NOTE | 2017-09-18 07:00 | RADRPT ---
EXAM DATE/TIME: 09/17/2017 13:34 [facility] COMPARISON: CT LUMBAR SPINE W/O CONTRAST, September 15, 2017, 19:04. INDICATIONS : Abscess removal in operating room. MEDICAL HISTORY : Hypertension. Renal failure. Hep C. Substance abuse. Left psoas muscle abscess. SURGICAL HISTORY : None. ENCOUNTER: Initial ACUITY: 1 day PAIN SCORE: Non-responsive. LOCATION: L-spine FINDINGS: 2 spot intraoperative fluoroscopic views of the lumbar spine demonstrate cage hardware at the interve rtebral disc space level at the expected location of L2-3 with endplate irregularity corresponding to the findings on prior CT examination. CONCLUSION: Intervertebral fusion hardware placement. Bro Guo MD on September 18, 2017 at 6:58 Board Certified Radiologist. This report was verified electronically.
--- NOTE | 2017-09-18 07:01 | RADRPT ---
EXAM DATE/TIME: 09/17/2017 18:07 [facility] COMPARISON: No previous studies available for comparison. INDICATIONS : L2-L3 fusion in done operating room. MEDICAL HISTORY : Hypertension. Renal failure. Hep C. Substance abuse. Left psoas muscle abscess. SURGICAL HISTORY : None. ENCOUNTER: Initial ACUITY: 1 day PAIN SCORE: Non-responsive. LOCATION: L-spine FINDINGS: Posterior indy and transpedicular screw fixation hardware placement is noted at the expected location of L2 and L4 with intervertebral fusion hardware at L2-3. CONCLUSION: Postsurgical changes are Bro Guo MD on September 18, 2017 at 6:59 Board Certified Radiologist. This report was verified electronically.
[2017-09-18 08:00] VITALS: BP 132/70; PULSE 87; RESP 18; TEMP 97.2; O2SAT 97
[2017-09-18 08:06] LABS: AUTOMATED NEUTROPHIL # 11.1 TH/MM3 (1.8-7.7); BASOPHIL % 0.1 % (0.0-2.0); HEMATOCRIT 30.2 % (39.0-51.0); HEMOGLOBIN 10.4 GM/DL (13.0-17.0); LYMPH % 9.4 % (9.0-44.0); LYMPHOCYTE # 1.3 TH/MM3 (1.0-4.8); MEAN CELL VOLUME 89.1 FL (80.0-100.0); MEAN CORPUSCULAR HEMOGLOBIN 30.8 PG (27.0-34.0); MEAN CORPUSCULAR HGB CONC 34.6 % (32.0-36.0); MONO % 9.2 % (0.0-8.0); MONOCYTE # 1.3 TH/MM3 (0-0.9); NEUT % 81.3 % (16.0-70.0); PLATELET COUNT 272 TH/MM3 (150-450); RED BLOOD COUNT 3.39 MIL/MM3 (4.50-5.90); RED CELL DISTRIBUTION WIDTH 14.7 % (11.6-17.2); WHITE BLOOD COUNT 13.6 TH/MM3 (4.0-11.0)
[2017-09-18 08:44] LABS: CALCIUM 8.2 MG/DL (8.5-10.1)
[2017-09-18 08:55] LABS: BICARBONATE 24.4 MEQ/L (21.0-32.0); CREATININE 0.92 MG/DL (0.60-1.30)
[2017-09-18] MEDS: SODIUM CHLORIDE 0.9% FLUSH 10 ML FLUSH IV FLUSH SCH ×2 (09:55→20:42)
[2017-09-18] MEDS: DOCUSATE SODIUM 50 MG/SENNA 8.6 MG TAB PO SCH ×2 (09:59→20:43)
[2017-09-18] MEDS: DILTIAZEM HCL 90 MG TAB PO SCH ×4 (10:00→20:43)
[2017-09-18] MEDS: THIAMINE HCL 100 MG TAB PO SCH (10:01)
[2017-09-18] MEDS: FOLIC ACID 1 MG TAB PO SCH (10:01)
[2017-09-18] MEDS: MULTIVITAMIN TAB PO SCH (10:01)
[2017-09-18] MEDS: CITALOPRAM HYDROBROMIDE 20 MG TAB PO SCH (10:02)
[2017-09-18] MEDS: DIGOXIN 0.125 MG TAB PO SCH (10:02)
[2017-09-18] MEDS: PANTOPRAZOLE SOD 20 MG DELAYED RELEASE TAB PO SCH (10:03)
--- NOTE | 2017-09-18 10:16 | HHI.PR ---
Subjective Remarks Follow up Discitis/Osteo 09/14/17-patient seen and examined; complains of Back pain but denies any lower extremities weakness or numbness. Afebrile. Seen by NSG 09/15/17-patient seen and examined; still with back pain , but denies any bladder or bowel dysfunction. 09/16/17-patient seen and examined; no change in the level of back pain. afebrile. States he is waiting to go to the OR tomorrow 09/17/17-Patient seen and examined, NPO pending surgical intervention today. Still with back pain 09/18/17-Patient seen and examined, patient had a surgical procedure performed yesterday however states he is still having back pain. Afebrile Objective Vitals Vital Signs Date Time Temp Pulse Resp B/P (MAP) Pulse Ox O2 Delivery O2 Flow Rate FiO2 09/18/17 08:00 97.2 87 18 132/70 (90) 97 09/18/17 04:00 97.1 88 18 133/70 (91) 99 09/18/17 00:00 97.6 83 18 145/81 (102) 97 09/18/17 00:00 97.6 83 18 145/81 (102) 97 09/17/17 23:51 86 09/17/17 23:20 98.0 100 18 158/90 (112) 97 09/17/17 22:30 97 09/17/17 22:00 96 18 163/89 (113) 100 Nasal Cannula 2 09/17/17 21:30 94 22 138/82 (100) 100 Nasal Cannula 2 09/17/17 21:00 97 20 138/83 (101) 99 Nasal Cannula 2 09/17/17 20:45 85 16 127/77 (94) 96 Nasal Cannula 2 09/17/17 20:30 83 16 132/76 (94) 96 Nasal Cannula 2 09/17/17 20:15 83 16 111/65 (80) 96 Nasal Cannula 2 09/17/17 20:03 98.1 84 16 104/61 (75) 96 Nasal Cannula 4 09/17/17 11:39 98.2 78 20 135/72 (93) 98 I/O 09/17/17 09/17/17 09/17/17 09/18/17 09/18/17 09/18/17 07:00 15:00 23:00 07:00 15:00 23:00 Intake Total 600 ml 4200 ml 1000 ml Output Total 625 ml 250 ml 450 ml 800 ml Balance -25 ml -250 ml 3750 ml 1000 ml -800 ml Intake Oral 500 ml IV Total 100 ml 1000 ml Other 4200 ml Output Urine Total 625 ml 250 ml 150 ml 800 ml Estimated Blood Loss 300 ml # Bowel Movements 0 Result Diagram: 09/18/17 0553 09/18/17 0556 Imaging Last Impressions Lumbar Spine X-Ray 09/17/17 0000 Signed Impressions: Service Date/Time: September 13:34 - CONCLUSION: Intervertebral fusion hardware placement. Bro Guo MD Lumbar Spine CT 09/15/17 Signed Impressions: Service Date/Time: Friday, September 15, 2017 19:04 - CONCLUSION: Osteomyelitis/discitis again noted which does not appear significantly changed from the recent MRI but is not as well-visualized. This is greatest at the L2- 3 level with mass effect on the thecal sac which is poorly defined. On the MRI there was an anterior epidural fluid collection/abscess at this level with mass effect on the thecal sac. Martin Desouza MD Abdomen/Pelvis CT [id number]/12/[id number] Signed Impressions: Service Date/Time: Tuesday, September 12, 2017 22:42 - CONCLUSION: Progressive endplate and vertebral body destruction at the L2-L3 and L3-L4 levels with increased soft tissue density in the paraspinous regions and retroperitoneum with adenopathy all concerning for ongoing infection and discitis. The patient is scheduled for MRI examinations of the thoracic and lumbar spines. Giovanni Gomez MD Thoracic Spine MRI 09/12/17 Signed Impressions: Service Date/Time: Wednesday, September 13, 2017 00:02 - CONCLUSION: No significant interval change. No evidence of abscess in the thoracic spine region. Scott Morfin MD Lumbar Spine MRI 09/12/17 Signed Impressions: Service Date/Time: Wednesday, September 13, 2017 00:02 - CONCLUSION: Evidence of osteomyelitis/discitis of the lumbar spine again seen. The defined anterior epidural fluid collection/abscess at L2-3 has decreased in size. However the ill-defined circumferential epidural soft tissue enhancement has increased in severity and extent. This results in increased central canal stenosis, most severe at L2-3. Slight increase in size of left psoas abscess and new small right psoas abscess also noted. Scott Morfin MD Objective Remarks GENERAL: NAD SKIN: Warm and dry. HEAD: Normocephalic. EYES: No scleral icterus. No injection or drainage. NECK: Supple, trachea midline. No JVD or lymphadenopathy. CARDIOVASCULAR: Regular rate and rhythm without murmurs, gallops, or rubs. RESPIRATORY: Breath sounds equal bilaterally. No accessory muscle use. GASTROINTESTINAL: Abdomen soft, non-tender, nondistended. MUSCULOSKELETAL: No cyanosis, or edema. BACK: Nontender without obvious deformity. No CVA tenderness.dressing over inc Procedures 09/17/17 1. Extreme lateral, trans-psoas approach with left T11 rib resection, debridement [id number]-osteomyelitis 2. Extreme lateral approach to bilateral psoas muscle abscess evacuation. 3. L2-3 interbody fusion with PEEK lateral cage, left T11 rib autograft 4. Bilateral L2-L4 posterior spinal instrumentation with percutaneous pedicle screw fixation. A/P Problem List: (1) Discitis of lumbar region ICD Code: M46.46 - Discitis, unspecified, lumbar region (2) Psoas abscess ICD Code: K68.12 - Psoas muscle abscess (3) Intractable pain ICD Code: R52 - Pain, unspecified (4) Renal insufficiency ICD Code: N28.9 - Disorder of kidney and ureter, unspecified (5) A-fib ICD Code: I48.91 - Unspecified atrial fibrillation (6) IVDU (intravenous drug user) ICD Code: F19.90 - Other psychoactive substance use, unspecified, uncomplicated Assessment and Plan 66-year-old man with 1. L-Spine Discitis/Osteomyelitis: Recurrent. Appreciate input from neurosurgery and s/p I&D 09/17/17 Continue with Cubicin per ID and monitor culture report Pain management accordingly PT to treat and eval 2. Psoas Abscess: Previous Left Psoas Abscess s/p CT-guided drainage, now increase in size w/ new small right psoas abscess.s/p bilateral psoas muscle abscess evacuation 09/17/17 by NSG 3. Intractable Pain: secondary to above, reports no relief w/ Tramadol, Continue PO/IV as needed 4. Renal Insufficiency: resolved 5. A. fib: continue home Digoxin, Metoprolol and Diltiazem. 6. IVDU: Denies recent use, last use May 2017 per patient, Ativan prn if needed. 7. DVT Prophylaxis: REY/Gm David MD Sep 18, 2017 10:16
[2017-09-18 12:00] VITALS: BP 123/62; PULSE 72; RESP 18; TEMP 97.5; O2SAT 97
--- NOTE | 2017-09-18 12:35 | HHI.NSPN ---
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 He has been followed by Dr. Krause from neurosurgery and infectious disease on inpatient and outpatient setting. Complains of recurrent and worsening back pain with intermittent pain rating down to the right leg and thigh and calf with intermittent numbness. Denies any weakness or incontinence. It is placed on tramadol but states this is not helping control his pain and therefore was scheduled to see a pain specialist later next week as well as a follow-up MRI scan. His back pain worsened and he presented to the emergency room last evening and MRI scan of the thoracic and lumbar spine obtained reveals extensive L1-2, L2-3 and L3-4 discitis with osteomyelitis along with a moderate spinal stenosis from epidural abscess along with psoas abscesses. When compared to the MRI scan in June of the stenosis appears to have progressed especially at the L2-3 level. He has been receiving Percocet and morphine for pain and appears to be comfortable with this regimen. 09/14: No significant change in back pain overnight. No ongoing pain and weakness or numbness in the lower extremities today. No complaints of bowel or bladder dysfunction. He states that his pain in the back, worse last week, with intermittent pain radiating to the lower extremities with ambulation. No neck pain or upper extremity pain weakness or numbness. 09/15: The patient is awake and alert in bed visiting with a friend when seen. He says he has pain to the back with movement. He did say last night he had some numbness and tingling going into the right lower extremity down to the toes after he came out of the MRI. He had severe pain to the back secondary to having to lay flat for the MRI. At present he has no numbness or tingling to the lower extremities and minimal back pain. His neuro exam is unchanged from yesterday. 09/16: This morning the patient continues to do well. He has low back pain with movement. He says he feels he is getting weaker. He denies any pain, numbness or tingling to the extremities. Upon examination he does seem slightly weaker to the left lower extremity. 09/17: The patient went to the operating room for an extreme lateral, trans- psoas approach with left T11 rib resection for debridement of L2-3 discitis/ osteomyelitis with interbody fusion with PEEK lateral cage and bilateral L2-L4 posterior spinal instrumentation and pedicle screw fixation and left T11 rib autograft as well as an extreme lateral approach to evacuate a bilateral psoas muscle abscess. Post-operatively the patient returned to the med/surg floor for further care and monitoring. 09/18: When seen the patient is awake and visiting with a friend. He does say he has low back pain but denies any pain, numbness or tingling to the lower extremities. He states that they feel "pretty strong." Upon examination he had no pain or numbness to the lower extremities and his strength was good except he had mild weakness to the left hamstring. (Onur Montana) Exam Results 09/16/17 09/16/17 09/17/17 09/17/17 09/18/17 09/18/17 06:00 18:00 06:00 18:00 06:00 18:00 Intake Total 720 ml 1150 ml 5200 ml Output Total 550 ml 675 ml 625 ml 250 ml 450 ml 800 ml Balance -550 ml 45 ml 525 ml -250 ml 4750 ml -800 ml Intake Oral 720 ml 1050 ml IV Total 100 ml 1000 ml Other 4200 ml Output Urine Total 550 ml 675 ml 625 ml 250 ml 150 ml 800 ml Estimated Blood Loss 300 ml # Bowel Movements 0 0 0 Vital Signs Date Time Temp Pulse Resp B/P (MAP) Pulse Ox O2 Delivery O2 Flow Rate FiO2 09/18/17 12:00 97.5 72 18 123/62 (82) 97 09/18/17 08:00 97.2 87 18 132/70 (90) 97 09/18/17 04:00 97.1 88 18 133/70 (91) 99 09/18/17 00:00 97.6 83 18 145/81 (102) 97 09/18/17 00:00 97.6 83 18 145/81 (102) 97 09/17/17 23:51 86 09/17/17 23:20 98.0 100 18 158/90 (112) 97 09/17/17 22:30 97 09/17/17 22:00 96 18 163/89 (113) 100 Nasal Cannula 2 09/17/17 21:30 94 22 138/82 (100) 100 Nasal Cannula 2 09/17/17 21:00 97 20 138/83 (101) 99 Nasal Cannula 2 09/17/17 20:45 85 16 127/77 (94) 96 Nasal Cannula 2 09/17/17 20:30 83 16 132/76 (94) 96 Nasal Cannula 2 09/17/17 20:15 83 16 111/65 (80) 96 Nasal Cannula 2 09/17/17 20:03 98.1 84 16 104/61 (75) 96 Nasal Cannula 4 09/17/17 11:39 98.2 78 20 135/72 (93) 98 09/17/17 08:09 98.1 66 20 139/79 (99) 98 09/17/17 04:15 98.2 68 16 123/66 (85) 97 09/17/17 00:00 97.6 74 17 110/64 (79) 97 09/16/17 23:57 68 09/16/17 20:45 98.2 80 17 140/79 (99) 98 09/16/17 20:00 78 09/16/17 15:40 97.6 74 20 148/76 (100) 97 09/16/17 12:17 97.7 73 20 152/89 (110) 99 09/16/17 09:28 97.2 78 20 180/94 (122) 98 09/16/17 04:00 97.4 74 18 169/86 (113) 96 09/16/17 00:17 99.0 66 18 146/77 (100) 97 09/15/17 20:44 18 09/15/17 20:00 98.4 68 18 146/71 (96) 97 09/15/17 16:39 98.7 69 16 141/80 (100) 98 (Onur Montana) Physical Examination GENERAL: Awake & alert in bed visiting with a friend. Affect normal. Readily interacts. No apparent distress. HEENT: Normocephalic. Atraumatic. MUSCULOSKELETAL: MCKEON spontaneously & purposefully w/o any difficulty. No evident clubbing or deformity. Midline thoracolumbar spine NTTP. Right lateral and left posterolateral surgical incisions mildly TTP. NEUORLOGICAL: AAOx3. Speech clear & appropriate. Follow commands w/o difficulty. Sensation intact to light touch to the lower extremities. Muscle strength 4+/5 to left hamstring o/w 5/5 to all major flexion & extension muscle groups of the lower extremities. (Onur Montana) Lab, Micro, Other Results Recent Impressions Lumbar Spine X-Ray 09/17/17 0000 Signed Impressions: Service Date/Time: September 13:34 - CONCLUSION: Intervertebral fusion hardware placement. Bro Guo MD Lumbar Spine X-Ray 09/17/17 0000 Signed Impressions: Service Date/Time: September 18:07 - CONCLUSION: Postsurgical changes are Bro Guo MD Laboratory Tests Test 09/18/17 05:53 09/18/17 05:56 White Blood Count 13.6 TH/MM3 Red Blood Count 3.39 MIL/MM3 Hemoglobin 10.4 GM/DL Hematocrit 30.2 % Mean Corpuscular Volume 89.1 FL Mean Corpuscular Hemoglobin 30.8 PG Mean Corpuscular Hemoglobin Concent 34.6 % Red Cell Distribution Width 14.7 % Platelet Count 272 TH/MM3 Mean Platelet Volume 8.0 FL Neutrophils (%) (Auto) 81.3 % Lymphocytes (%) (Auto) 9.4 % Monocytes (%) (Auto) 9.2 % Eosinophils (%) (Auto) 0.0 % Basophils (%) (Auto) 0.1 % Neutrophils # (Auto) 11.1 TH/MM3 Lymphocytes # (Auto) 1.3 TH/MM3 Monocytes # (Auto) 1.3 TH/MM3 Eosinophils # (Auto) 0.0 TH/MM3 Basophils # (Auto) 0.0 TH/MM3 CBC Comment DIFF FINAL Differential Comment Blood Urea Nitrogen 17 MG/DL Creatinine 0.92 MG/DL Random Glucose 137 MG/DL Calcium Level 8.2 MG/DL Sodium Level 137 MEQ/L Potassium Level 4.2 MEQ/L Chloride Level 103 MEQ/L Carbon Dioxide Level 24.4 MEQ/L Anion Gap 10 MEQ/L Estimat Glomerular Filtration Rate 82 ML/MIN (Onur Monatna) Medical Decision Making Impression and Plan Impression: 1. Lumbar discitis and osteomyelitis. His most recent MRI imaging and CT scan of the abdomen images are reviewed by the undersigned today. There appears to be healing of the L3 4 disc space with possible spontaneous fusion across this level. At the L1-L2 level, there is diminished epidural abscess component compared to his previous MRI. At the L2-L3 level, there is significant destruction of the vertebral endplates and vertebral body adjacent to the L2-3 disc space. Previous epidural abscess component is resolved at this level, but there is increased granulation tissue with moderately severe canal stenosis. Significant bilateral psoas muscle abscess persists with a fluid component bilaterally, somewhat worse compared to the previous MRI scan. Postoperative Diagnosis: (1) Septic discitis of lumbar region (2) Psoas abscess Lumbar discitis, residual at L2-L3 level Bilateral L2-3 level psoas muscle abscess Patient doing well post-operatively. He has some low back pain that appears controlled. Slight weakness to the left hamstring o/w normal exam. Elevated SBP once yesterday evening. Reviewed labs for today. Increase in leukocytosis. Haemoglobin level essentially stable. Resolution of hypokalemia. Improvement in eGFR. POD #1 () s/p: 1. Extreme lateral, trans-psoas approach with left T11 rib resection, debridement L5-0-ullwnuav-osteomyelitis 2. Extreme lateral approach to bilateral psoas muscle abscess evacuation. 3. L2-3 interbody fusion with PEEK lateral cage, left T11 rib autograft 4. Bilateral L2-L4 posterior spinal instrumentation with percutaneous pedicle screw fixation. Plan: Primary management per Hospitalist. Antibiotics per Infectious Disease. Neuro checks. TLSO brace when OOB. Mobilise patient w/assistance. Physical Therapy eval & tx. (Onur Montana) Attending Statement The exam, history, and the medical decision-making described in the above note were completed with the assistance of the mid-level provider. I reviewed and agree with the findings presented. I attest that I had a [id number] encounter with the patient on the same day, and personally performed and documented my assessment and findings in the medical record. Patient seen postoperatively. Moderate back pain control with present medications. He is awake and alert. Sensation intact light touch throughout the lower extremities Strength is normal throughout the lower extremities Surgical findings discussed with patient. Extensive amount of purulent material encountered the bilateral L2-3 level psoas muscle. Mobilize out of bed as tolerated Discontinue [facility] Infectious disease following. (José Antonio Krause MD) Onur Montana Sep 18, 2017 12:35 José Antonio Krause MD Sep 18, 2017 20:51
[2017-09-18] MEDS: ACETAMINOPHEN/HYDROcodone 325 MG/10 MG TAB PO PRN (13:26)
--- NOTE | 2017-09-18 14:03 | HHI.IDPN ---
Subjective Subjective Remarks This is a 66-year-old male past medical history significant for IVDU, MRSA bacteremia, MRSA L2-L3 discitis, Hep C and A. fib with RVR secondary to withdrawal who was admitted May 22, 2017 with altered mental status and complaints of left-sided back pain. MRI of the thoracic and lumbar spine revealed degenerative changes but no evidence for abscess or fluid collection.. Blood cultures were obtained at that time and 4/4 bottles grew MRSA. Patient was seen in consultation by Dr. Hernandez. Patient had a lumbar puncture and CSF revealed total protein of 986 and glucose of 1. Gram stain revealed many white cells but no organisms were seen. Additionally, patient's drug screen was positive for cocaine. Due to concern for possible bacterial meningitis, patient was treated with IV ceftriaxone, vancomycin and ampicillin. CSF culture failed to show any growth. CT of the chest revealed moderate size bilateral pleural effusions with small areas of patchy consolidation concerning for infection. He underwent bilateral chest tube placement with pleural fluid analysis suggestive of transudative effusion. CT of abdomen and pelvis showed retroperitoneal inflammation around the abdominal aorta as well as extensive small lymph nodes throughout the retroperitoneum free fluid in both pericolic gutters right greater than left possible discitis at L2-3 with cystic changes noted in the endplates. He underwent a CT guided needle biopsy Dec of the L2L3 disc space aspirate grew MRSA which was resistant to penicillin and ceftriaxone but sensitive to vancomycin therefore, patient was continued on vancomycin alone. ESR was 140 and CRP was 26. [address] thoracic and lumbar spine obtained June 05 revealed progression of L2-3 discitis and interval development of multiple small psoas muscle loculations bilaterally characteristic abscesses with compression of the thecal sac. Patient was seen in consultation by Dr. Krause of neurosurgery who did not feel surgical intervention was warranted at that time. On 06/09/17, patient was admitted to [facility] for comprehensive rehabilitation. On 06/12/17, repeat MRI lumbar spine revealed worsening of marrow edema now involving L1 to L4 and a small epidural abscess at L2 to L3 as well as dural enhancement and nerve root enhancement character significant infectious radiculitis and multi-locular left psoas abscess. On 06/16/17, patient underwent CT-guided aspiration of left psoas abscess which was positive for MRSA. Repeat blood cultures 05/28 and 06/05 were negative. Patient underwent echocardiogram and LEXIE which failed to show any evidence of infectious endocarditis. Patient also had Pseudomonas UTI that was treated with IV cefepime and changed to Levaquin. Patient developed acute renal failure likely due to vancomycin which was discontinued and he was treated with daptomycin with an end date of 07/26/17. Patient was discharged from [facility] to [facility] where he continued another month of IV antibiotic treatment. He then followed with Dr. Snyder as an outpatient and continued to be managed with oral antibiotics the names of which he is not sure of but thinks one may have been Bactrim. He was seen in Dr. Snyder's office two weeks ago and was told he had normal labs and had completed his antibiotic treatment course. This past Thursday, patient went to see his PCP Dr. Hwang with complaints of "not feeling well" and increased low back pain. Patient states that Thursday he began having new right- sided back pain with extension into the right buttock and right inguinal area as well as numbness and tingling down the front of the right leg and an increase in left-sided back pain prompting him to come into the ED for further evaluation. Patient states he last used IV drugs May 2017. In the ED, patient is afebrile. White count is elevated at 19. Lactic acid is 0.7. He is tachycardic with heart rate of 95. Blood cultures are pending. MRI thoracic and lumbar spine shows evidence of osteomyelitis/discitis of lumbar spine, anterior epidural fluid collection/abscess at L2-3 that has decreased in size however circumferential epidural soft tissue enhancement has increased in severity and extent resulting in increased central canal stenosis most severe at L2-3. Also noted is a slight increase in size of left psoas abscess and new small right psoas abscess. CT of abdomen and pelvis reveals progressive endplate vertebral body destruction at L2-3 and L3 4 with increased soft tissue density paraspinous regions and retroperitoneum with adenopathy concerning for ongoing infections and discitis. Infectious disease has been consulted for evaluation and management of lumbar osteomyelitis/discitis. He was evaluated in CDU. He is asleep but easily awakens to voice. Appears comfortable while lying supine. He has no complaints of fever, chills, nausea, vomiting, dysuria or diarrhea. He denies any weakness of bilateral lower extremities, bowel or bladder incontinence or saddle anesthesia. He does report difficulty sitting up and turning over secondary to increase back and buttock pain. Neurosurgery has been consulted as well. Overnight events reviewed No fevers No rash No diarrhea. Antibiotics Cefepime IV Dapto IV Lines Line sites with no e.o infection Past Medical History reviewed Allergies: Coded Allergies: No Known Allergies (Unverified Allergy, Unknown, 09/12/17) Objective . Vital Signs Date Time Temp Pulse Resp B/P (MAP) Pulse Ox O2 Delivery O2 Flow Rate FiO2 09/18/17 12:00 97.5 72 18 123/62 (82) 97 09/18/17 08:00 97.2 87 18 132/70 (90) 97 09/18/17 04:00 97.1 88 18 133/70 (91) 99 09/18/17 00:00 97.6 83 18 145/81 (102) 97 09/18/17 00:00 97.6 83 18 145/81 (102) 97 09/17/17 23:51 86 09/17/17 23:20 98.0 100 18 158/90 (112) 97 09/17/17 22:30 97 09/17/17 22:00 96 18 163/89 (113) 100 Nasal Cannula 2 09/17/17 21:30 94 22 138/82 (100) 100 Nasal Cannula 2 09/17/17 21:00 97 20 138/83 (101) 99 Nasal Cannula 2 09/17/17 20:45 85 16 127/77 (94) 96 Nasal Cannula 2 09/17/17 20:30 83 16 132/76 (94) 96 Nasal Cannula 2 09/17/17 20:15 83 16 111/65 (80) 96 Nasal Cannula 2 09/17/17 20:03 98.1 84 16 104/61 (75) 96 Nasal Cannula 4 09/18/17 09/18/17 09/19/17 15:00 23:00 07:00 Output Total 800 ml Balance -800 ml Output Urine Total 800 ml . Laboratory Tests Test 09/18/17 05:53 White Blood Count 13.6 TH/MM3 Red Blood Count 3.39 MIL/MM3 Hemoglobin 10.4 GM/DL Hematocrit 30.2 % Mean Corpuscular Volume 89.1 FL Mean Corpuscular Hemoglobin 30.8 PG Mean Corpuscular Hemoglobin Concent 34.6 % Red Cell Distribution Width 14.7 % Platelet Count 272 TH/MM3 Mean Platelet Volume 8.0 FL Neutrophils (%) (Auto) 81.3 % Lymphocytes (%) (Auto) 9.4 % Monocytes (%) (Auto) 9.2 % Eosinophils (%) (Auto) 0.0 % Basophils (%) (Auto) 0.1 % Neutrophils # (Auto) 11.1 TH/MM3 Lymphocytes # (Auto) 1.3 TH/MM3 Monocytes # (Auto) 1.3 TH/MM3 Eosinophils # (Auto) 0.0 TH/MM3 Basophils # (Auto) 0.0 TH/MM3 CBC Comment DIFF FINAL Differential Comment Laboratory Tests Test 09/18/17 05:56 Blood Urea Nitrogen 17 MG/DL Creatinine 0.92 MG/DL Random Glucose 137 MG/DL Calcium Level 8.2 MG/DL Sodium Level 137 MEQ/L Potassium Level 4.2 MEQ/L Chloride Level 103 MEQ/L Carbon Dioxide Level 24.4 MEQ/L Anion Gap 10 MEQ/L Estimat Glomerular Filtration Rate 82 ML/MIN Microbiology Date/Time Source Procedure Growth Status 09/17/17 14:40 Wound Other Fungal Smear - Final NO FUNGAL ELEMENTS SEEN. Resulted 09/17/17 14:40 Wound Other Fungal Culture Pending Resulted 09/17/17 14:40 Wound Other Acid Fast Stain Pending Received 09/17/17 14:40 Wound Other Mycobacterial Culture Pending Received 09/17/17 14:40 Wound Other Gram Stain - Final Resulted 09/17/17 14:40 Wound Other Wound Culture Pending Resulted Imaging Last Impressions Abdomen/Pelvis CT 09/12/172114 Signed Impressions: Service Date/Time: Tuesday, September 12, 2017 22:42 - CONCLUSION: Progressive endplate and vertebral body destruction at the L2-L3 and L3-L4 levels with increased soft tissue density in the paraspinous regions and retroperitoneum with adenopathy all concerning for ongoing infection and discitis. The patient is scheduled for MRI examinations of the thoracic and lumbar spines. Giovanni Gomez MD Thoracic Spine MRI 09/12/17 0000 Signed Impressions: Service Date/Time: Wednesday, September 13, 2017 00:02 - CONCLUSION: No significant interval change. No evidence of abscess in the thoracic spine region. Scott Morfin MD Lumbar Spine MRI 09/12/17 0000 Signed Impressions: Service Date/Time: Wednesday, September 13, 2017 00:02 - CONCLUSION: Evidence of osteomyelitis/discitis of the lumbar spine again seen. The defined anterior epidural fluid collection/abscess at L2-3 has decreased in size. However the ill-defined circumferential epidural soft tissue enhancement has increased in severity and extent. This results in increased central canal stenosis, most severe at L2-3. Slight increase in size of left psoas abscess and new small right psoas abscess also noted. Scott Morfin MD Physical Exam GENERAL: This is a well-nourished, well-developed male patient, in no apparent distress. SKIN: No rashes, ecchymoses or lesions. Cool and dry. HEAD: Atraumatic. Normocephalic. No temporal or scalp tenderness. EYES: Pupils equal round and reactive. Extraocular motions intact. No scleral icterus. No injection or drainage. ENT: Nose without bleeding or purulent drainage. Throat without erythema, tonsillar hypertrophy or exudate. Uvula midline. Airway patent. No oral thrush. NECK: Trachea midline. No lymphadenopathy. Supple, nontender, no meningeal signs. CARDIOVASCULAR: Regular rate and rhythm without murmurs, gallops, or rubs. RESPIRATORY: Clear to auscultation. Breath sounds equal bilaterally. No wheezes , rales, or rhonchi. GASTROINTESTINAL: Abdomen soft, non-tender, nondistended. No hepato-splenomegaly , or palpable masses. No guarding. MUSCULOSKELETAL: Extremities without clubbing, cyanosis, or edema. No joint tenderness, effusion, or edema noted. No calf tenderness. Thoracic and lumbar spine nontender to palpation. Decreased range of motion lumbar spine surgery to pain. Pain elicited in the back and right inguinal area with knee flexion. NEUROLOGICAL: Awake and. Cranial nerves II through XII grossly intact. Motor and sensory grossly within normal limits. Five out of 5 muscle strength in all muscle groups. Normal speech. Psych cooperative Assessment & Plan Remarks Discitis/osteomyelitis L2 - L4 with subsequent central canal stenosis most severe L2-3 Psoas R muscle abscess. Acute renal failure: prerenal, sepsis. Abnormal LFts: Hepatitis, sepsis. Hyperglycemia uncontrolled DM, sepsis related. Elevated CRP Hx of MRSA bacteremia Hx of MRSA discitis Hx of MRSA left psoas abscess Hep C Hx of IVDU Atrial fibrillation Hx of renal failure while on Vancomycin Recs: Continue Cefepime IV (started after surgery, was on hold prior to surgery Continue Daptomycin IV (ASP: failed Vanco, was on Dapto, may need further change based on cultures) Follow cultures Follow clinically. to cover for me this weekend. to cover for me 09/21/17 to 09/22/17. Felicia Del Real MD Sep 18, 2017 14:03
[2017-09-18] MEDS: DAPTOmycin INJ 650 MG in SODIUM CHLORIDE 0.9% INJ 100 ML IV SCH (18:31)
[2017-09-18 21:00] VITALS: BP 148/80; PULSE 89; RESP 17; TEMP 98.3; O2SAT 98
[2017-09-19] VITALS (9 sets, daily range): BP systolic 136–160; BP diastolic 66–89; PULSE 65–88; RESP 18–19; TEMP 97.6–98.5; O2SAT 96–99
[2017-09-19] MEDS: HYDROmorphone HCL 2 MG TAB PO PRN ×6 (01:24→21:36)
[2017-09-19] MEDS: ALPRAZolam 0.5 MG TAB PO PRN ×2 (01:24→23:38)
[2017-09-19] MEDS: 1/2 NS + KCL 20 MEQ INJ 1,000 ML IV SCH ×3 (02:21→21:37)
[2017-09-19] MEDS: METOPROLOL TARTRATE 25 MG TAB PO SCH ×3 (05:46→21:36)
[2017-09-19] MEDS: CEFEPIME INJ 1,000 MG in SODIUM CHLORIDE 0.9% INJ 100 ML IV SCH ×2 (05:47→17:37)
[2017-09-19] MEDS: DOCUSATE SODIUM 50 MG/SENNA 8.6 MG TAB PO SCH ×2 (08:41→21:36)
[2017-09-19] MEDS: PANTOPRAZOLE SOD 20 MG DELAYED RELEASE TAB PO SCH (08:41)
[2017-09-19] MEDS: THIAMINE HCL 100 MG TAB PO SCH (08:41)
[2017-09-19] MEDS: FOLIC ACID 1 MG TAB PO SCH (08:41)
[2017-09-19] MEDS: SODIUM CHLORIDE 0.9% FLUSH 10 ML FLUSH IV FLUSH SCH ×2 (08:41→21:37)
[2017-09-19] MEDS: DILTIAZEM HCL 90 MG TAB PO SCH ×4 (08:42→21:36)
[2017-09-19] MEDS: CITALOPRAM HYDROBROMIDE 20 MG TAB PO SCH (08:42)
[2017-09-19] MEDS: MULTIVITAMIN TAB PO SCH (08:42)
[2017-09-19] MEDS: DIGOXIN 0.125 MG TAB PO SCH (08:42)
--- NOTE | 2017-09-19 11:07 | HHI.PR ---
Subjective Remarks Follow up Discitis/Osteo 09/14/17-patient seen and examined; complains of Back pain but denies any lower extremities weakness or numbness. Afebrile. Seen by NSG 09/15/17-patient seen and examined; still with back pain , but denies any bladder or bowel dysfunction. 09/16/17-patient seen and examined; no change in the level of back pain. afebrile. States he is waiting to go to the OR tomorrow 09/17/17-Patient seen and examined, NPO pending surgical intervention today. Still with back pain 09/18/17-Patient seen and examined, patient had a surgical procedure performed yesterday however states he is still having back pain. Afebrile 09/19/17-Patient seen and examined, states he is still having more back pain. Afebrile Objective Vitals Vital Signs Date Time Temp Pulse Resp B/P (MAP) Pulse Ox O2 Delivery O2 Flow Rate FiO2 09/19/17 10:34 16 09/19/17 08:00 65 09/19/17 05:30 97.6 88 19 136/66 (89) 98 09/19/17 00:20 98.0 80 18 142/67 (92) 99 09/18/17 21:00 98.3 89 17 148/80 (102) 98 09/18/17 12:00 97.5 72 18 123/62 (82) 97 I/O 09/18/17 09/18/17 09/18/17 09/19/17 09/19/17 09/19/17 06:59 14:59 22:59 06:59 14:59 22:59 Intake Total 1000 ml 950 ml 1800 ml Output Total 800 ml 4800 ml 2850 ml Balance 1000 ml -800 ml -3850 ml -1050 ml Intake Oral 950 ml 1800 ml IV Total 1000 ml Output Urine Total 800 ml 4800 ml 2850 ml # Bowel Movements 0 0 Result Diagram: 09/18/17 0553 09/18/17 0556 Imaging Last Impressions Lumbar Spine X-Ray 09/17/17 0000 Signed Impressions: Service Date/Time: September 13:34 - CONCLUSION: Intervertebral fusion hardware placement. Bro Guo MD Lumbar Spine CT 09/15/17 0000 Signed Impressions: Service Date/Time: Friday, September 15, 2017 19:04 - CONCLUSION: Osteomyelitis/discitis again noted which does not appear significantly changed from the recent MRI but is not as well-visualized. This is greatest at the L2- 3 level with mass effect on the thecal sac which is poorly defined. On the MRI there was an anterior epidural fluid collection/abscess at this level with mass effect on the thecal sac. Martin Desouza MD Abdomen/Pelvis CT [id number] Signed Impressions: Service Date/Time: Tuesday, September 12, 2017 22:42 - CONCLUSION: Progressive endplate and vertebral body destruction at the L2-L3 and L3-L4 levels with increased soft tissue density in the paraspinous regions and retroperitoneum with adenopathy all concerning for ongoing infection and discitis. The patient is scheduled for MRI examinations of the thoracic and lumbar spines. Giovanni Gomez MD Thoracic Spine MRI 09/12/17 0000 Signed Impressions: Service Date/Time: Wednesday, September 13, 2017 00:02 - CONCLUSION: No significant interval change. No evidence of abscess in the thoracic spine region. Scott Morfin MD Lumbar Spine MRI 09/12/17 0000 Signed Impressions: Service Date/Time: Wednesday, September 13, 2017 00:02 - CONCLUSION: Evidence of osteomyelitis/discitis of the lumbar spine again seen. The defined anterior epidural fluid collection/abscess at L2-3 has decreased in size. However the ill-defined circumferential epidural soft tissue enhancement has increased in severity and extent. This results in increased central canal stenosis, most severe at L2-3. Slight increase in size of left psoas abscess and new small right psoas abscess also noted. Scott Morfin MD Objective Remarks GENERAL: NAD SKIN: Warm and dry. HEAD: Normocephalic. EYES: No scleral icterus. No injection or drainage. NECK: Supple, trachea midline. No JVD or lymphadenopathy. CARDIOVASCULAR: Regular rate and rhythm without murmurs, gallops, or rubs. RESPIRATORY: Breath sounds equal bilaterally. No accessory muscle use. GASTROINTESTINAL: Abdomen soft, non-tender, nondistended. MUSCULOSKELETAL: No cyanosis, or edema. BACK: Nontender without obvious deformity. No CVA tenderness.dressing over inc Procedures 09/17/17 1. Extreme lateral, trans-psoas approach with left T11 rib resection, debridement R4-5-opomotum-osteomyelitis 2. Extreme lateral approach to bilateral psoas muscle abscess evacuation. 3. L2-3 interbody fusion with PEEK lateral cage, left T11 rib autograft 4. Bilateral L2-L4 posterior spinal instrumentation with percutaneous pedicle screw fixation. A/P Problem List: (1) Discitis of lumbar region ICD Code: M46.46 - Discitis, unspecified, lumbar region (2) Psoas abscess ICD Code: K68.12 - Psoas muscle abscess (3) Intractable pain ICD Code: R52 - Pain, unspecified (4) Renal insufficiency ICD Code: N28.9 - Disorder of kidney and ureter, unspecified (5) A-fib ICD Code: I48.91 - Unspecified atrial fibrillation (6) IVDU (intravenous drug user) ICD Code: F19.90 - Other psychoactive substance use, unspecified, uncomplicated Assessment and Plan 66-year-old man with 1. L-Spine Discitis/Osteomyelitis: Recurrent. Appreciate input from neurosurgery and s/p I&D 09/17/17 Continue with Cubicin and Cefepime per ID and monitor culture report Pain management accordingly PT to treat and eval 2. Psoas Abscess: Previous Left Psoas Abscess s/p CT-guided drainage, now increase in size w/ new small right psoas abscess.s/p bilateral psoas muscle abscess evacuation 09/17/17 by NSG. Continue with Cubicin and Cefepime 3. Intractable Pain: secondary to above, reports no relief w/ Tramadol, Continue PO/IV as needed 4. Renal Insufficiency: resolved 5. A. fib: continue home Digoxin, Metoprolol and Diltiazem. 6. IVDU: Denies recent use, last use May 2017 per patient, Ativan prn if needed. 7. DVT Prophylaxis: REY/Gm David MD Sep 19, 2017 11:07
--- NOTE | 2017-09-19 13:35 | HHI.NSPN ---
(Tamela Mackey) Note Status Status: Progress Note (Tamela Mackey) Interval History Interval History Mr. Hamlin s/p extreme lateral, trans-psoas approach with left T11 rib resection, debridement Z6-1-kjtrehrv-osteomyelitis, extreme lateral approach to bilateral psoas muscle abscess evacuation, L2-3 interbody fusion with PEEK lateral cage, left T11 rib autograft, bilateral L2-L4 posterior spinal instrumentation with percutaneous pedicle screw fixation on Sep 17, 2017 for septic discitis of lumbar region, Psoas abscess, Lumbar discitis, residual at L2 -L3 level, Bilateral L2-3 level psoas muscle abscess. 09/19: c/o moderate at times severe left side rib pain. Otherwise reports neuro stable. (Tamela Mackey) Labs, Micro, & Vital Signs Results Date Time Temp Pulse Resp B/P (MAP) Pulse Ox O2 Delivery O2 Flow Rate FiO2 09/19/17 12:20 98.1 76 18 146/75 (98) 96 09/19/17 12:00 69 09/19/17 10:34 16 09/19/17 08:00 65 09/19/17 05:30 97.6 88 19 136/66 (89) 98 09/19/17 00:20 98.0 80 18 142/67 (92) 99 09/18/17 21:00 98.3 89 17 148/80 (102) 98 Constitutional Vital Signs Date Time Temp Pulse Resp B/P (MAP) Pulse Ox O2 Delivery O2 Flow Rate FiO2 09/19/17 12:20 98.1 76 18 146/75 (98) 96 09/19/17 12:00 69 09/19/17 10:34 16 09/19/17 08:00 65 09/19/17 05:30 97.6 88 19 136/66 (89) 98 09/19/17 00:20 98.0 80 18 142/67 (92) 99 09/18/17 21:00 98.3 89 17 148/80 (102) 98 (Tamela Mackey) Review of Systems Constitutional: DENIES: Fever Musculoskeletal: COMPLAINS OF: Back pain (left side rib pain) (Tamela Mackey) Physical Exam Mr. Hamlin is alert, awake and oriented to time, place and person. Speech is fluent. Cranial nerve examination: pupils equal, round and reactive to light. Extra- ocular movements are intact. Facial motor a normal and symmetrical. Neck is soft and supple Motor: moving all major muscle groups of upper and lower extremities (Tamela Mackey) Medications Current Medications Current Medications Medications (Trade) Dose Ordered Sig/Frandy Route PRN Reason Start Time Stop Time Status Last Admin Dose Admin Sodium Chloride (NS Flush) 2 ml UNSCH PRN IV FLUSH FLUSH AFTER USING IV ACCESS 09/13/17 02:30 09/17/17 02:41 Sodium Chloride (NS Flush) 2 ml BID IV FLUSH 09/13/17 09:00 09/18/17 20:42 Ondansetron HCl (Zofran Inj) 4 mg Q6H PRN IVP NAUSEA OR VOMITING 09/13/17 02:30 Acetaminophen (Tylenol) 650 mg Q6H PRN PO FEVER/PAIN SCALE 1 TO 2 09/13/17 02:30 09/13/17 21:16 Senna/Docusate Sodium (Sabrina-Colace) 1 tab BID PO 09/13/17 09:00 09/19/17 08:41 Magnesium Hydroxide (Milk Of Magnesia Liq) 30 ml Q12H PRN PO Mild constipation 09/13/17 02:30 Sennosides (Senokot) 17.2 mg Q12H PRN PO Moderate constipation 09/13/17 02:30 09/13/17 06:04 Bisacodyl (Dulcolax Supp) 10 mg DAILY PRN RECTAL SEVERE CONSITIPATION 09/13/17 02:30 Lactulose (Lactulose Liq) 30 ml DAILY PRN PO SEVERE CONSITIPATION 09/13/17 02:30 Citalopram Hydrobromide (CeleXA) 20 mg DAILY PO 09/13/17 09:00 09/19/17 08:42 Digoxin (Lanoxin) 0.125 mg DAILY PO 09/13/17 09:00 09/19/17 08:42 Diltiazem HCl (Cardizem) 90 mg QID PO 09/13/17 09:00 09/19/17 12:19 Folic Acid (Folate) 1 mg DAILY PO 09/13/17 09:00 09/19/17 08:41 Methocarbamol (Robaxin) 500 mg TID PRN PO MUSCLE SPASM 09/13/17 02:30 09/18/17 20:44 Metoprolol Tartrate (Lopressor) 25 mg Q8HR PO 09/13/17 06:00 09/19/17 12:19 Multivitamins (Theragran) 1 tab DAILY PO 09/13/17 09:00 09/19/17 08:42 Pantoprazole Sodium (Protonix) 20 mg DAILY PO 09/13/17 09:00 09/19/17 08:41 Thiamine HCl (Vitamin B1) 100 mg DAILY PO 09/13/17 09:00 09/19/17 08:41 Albuterol/ Ipratropium (Duoneb Neb) 1 ampule Q4HR NEB PRN NEB SHORTNESS OF BREATH 09/13/17 03:00 Alprazolam (Xanax) 0.5 mg Q8H PRN PO ANXIETY 09/13/17 03:00 09/19/17 01:24 Daptomycin 650 mg/ Sodium Chloride 100 ml @ 200 mls/hr Q24H IV 09/13/17 18:00 09/18/17 18:31 Lactated Ringer's 1,000 ml @ 30 mls/hr Q24H PRN IV SEE LABEL COMMENTS 09/17/17 05:15 09/20/17 05:14 Sodium Chloride 500 ml @ 30 mls/hr [id number] PRN IV SEE LABEL COMMENTS 09/17/17 05:15 09/20/17 05:14 Povidone Iodine (Betadine 5% Antisepsis Kit) 1 applic [employer] PRN EACH NARE SEE LABEL COMMENTS 09/17/17 05:15 09/20/17 05:14 Chlorhexidine Gluconate (Chlorhexidine 2% Cloth) 3 pack [employer] PRN TOPICAL SEE LABEL COMMENTS 09/17/17 05:15 09/20/17 05:14 Cefepime HCl 1000 mg/Sodium Chloride 100 ml @ 200 mls/hr Q12H IV 09/17/17 17:00 09/19/17 05:47 Potassium Chloride/Sodium Chloride 1,000 ml @ 100 mls/hr Q10H IV 09/17/17 20:21 09/19/17 05:48 Ondansetron HCl (Zofran Inj) 4 mg Q6H PRN IV PUSH NAUSEA OR VOMITING 09/17/17 20:30 Acetaminophen/ Hydrocodone Bitart ([place] 10-325 Mg) 1 tab Q4H PRN PO PAIN SCALE 3 TO 5 09/17/17 20:45 09/18/17 13:26 Morphine Sulfate (Morphine Inj) 2 mg Q3H PRN IV PUSH Pain 3-5; if unable to take PO 09/17/17 20:45 09/18/17 00:59 Morphine Sulfate (Morphine Inj) 4 mg Q3H PRN IV PUSH BREAKTHROUGH PAIN 09/17/17 20:45 Hydromorphone HCl (Dilaudid) 2 mg Q4H PRN PO PAIN SCALE 6 TO 10 09/17/17 20:45 09/19/17 09:33 Naloxone HCl (Narcan Inj) 0.4 mg UNSCH PRN IV PUSH SEE LABEL COMMENTS 09/17/17 20:45 (Tamela Mackey) Medical Decision Making MDM Remarks 66 y/o male s/p extreme lateral, trans-psoas approach with left T11 rib resection, debridement Z3-5-vxikulxi-osteomyelitis, extreme lateral approach to bilateral psoas muscle abscess evacuation, L2-3 interbody fusion with PEEK lateral cage, left T11 rib autograft, bilateral L2-L4 posterior spinal instrumentation with percutaneous pedicle screw fixation on Sep 17, 2017 for septic discitis of lumbar region, Psoas abscess, Lumbar discitis, residual at L2 -L3 level, Bilateral L2-3 level psoas muscle abscess. (Tamela Mackey) Plan Plan Remarks cont pain control cont therapy cont antibiotic tx per ID following (Tamela Mackey) Attending Statement The exam, history, and the medical decision-making described in the above note were completed with the assistance of the mid-level provider. I reviewed and agree with the findings presented. I attest that I had a [id number] encounter with the patient on the same day, and personally performed and documented my assessment and findings in the medical record. (Peter Calix MD) Tamela Mackey Sep 19, 2017 13:35 Peter Calix MD Sep 20, 2017 21:26
[2017-09-19] MEDS: DAPTOmycin INJ 650 MG in SODIUM CHLORIDE 0.9% INJ 100 ML IV SCH (17:36)
[2017-09-19] MEDS: SENNOSIDES 8.6 MG TAB PO PRN (18:48)
[2017-09-20] VITALS (7 sets, daily range): BP systolic 124–163; BP diastolic 70–84; PULSE 55–70; RESP 18; TEMP 97.6–98.8; O2SAT 96–98
[2017-09-20] MEDS: HYDROmorphone HCL 2 MG TAB PO PRN ×5 (01:36→20:23)
[2017-09-20] MEDS: CEFEPIME INJ 1,000 MG in SODIUM CHLORIDE 0.9% INJ 100 ML IV SCH ×2 (05:41→16:36)
[2017-09-20] MEDS: METOPROLOL TARTRATE 25 MG TAB PO SCH ×3 (05:41→20:32)
[2017-09-20] MEDS: METHOCARBAMOL 500 MG TAB PO PRN ×2 (05:48→20:32)
[2017-09-20] MEDS: DIGOXIN 0.125 MG TAB PO SCH (09:00)
[2017-09-20] MEDS: CITALOPRAM HYDROBROMIDE 20 MG TAB PO SCH (09:00)
[2017-09-20] MEDS: FOLIC ACID 1 MG TAB PO SCH (09:00)
[2017-09-20] MEDS: PANTOPRAZOLE SOD 20 MG DELAYED RELEASE TAB PO SCH (09:00)
[2017-09-20] MEDS: DILTIAZEM HCL 90 MG TAB PO SCH ×4 (09:00→20:22)
[2017-09-20] MEDS: MULTIVITAMIN TAB PO SCH (09:00)
[2017-09-20] MEDS: SODIUM CHLORIDE 0.9% FLUSH 10 ML FLUSH IV FLUSH SCH ×2 (09:00→20:23)
[2017-09-20] MEDS: THIAMINE HCL 100 MG TAB PO SCH (09:00)
[2017-09-20] MEDS: DOCUSATE SODIUM 50 MG/SENNA 8.6 MG TAB PO SCH ×2 (09:00→20:22)
--- NOTE | 2017-09-20 10:20 | HHI.PR ---
Subjective Remarks Follow up Discitis/Osteo 09/14/17-patient seen and examined; complains of Back pain but denies any lower extremities weakness or numbness. Afebrile. Seen by NSG 09/15/17-patient seen and examined; still with back pain , but denies any bladder or bowel dysfunction. 09/16/17-patient seen and examined; no change in the level of back pain. afebrile. States he is waiting to go to the OR tomorrow 09/17/17-Patient seen and examined, NPO pending surgical intervention today. Still with back pain 09/18/17-Patient seen and examined, patient had a surgical procedure performed yesterday however states he is still having back pain. Afebrile 09/19/17-Patient seen and examined, states he is still having more back pain. Afebrile 09/20/17-Patient seen and examined; Stable despite complaint of back pain. Afebrile. No bladder or bowel dysfunction Objective Vitals Vital Signs Date Time Temp Pulse Resp B/P (MAP) Pulse Ox O2 Delivery O2 Flow Rate FiO2 09/20/17 08:19 97.6 65 18 124/70 (88) 97 09/20/17 05:22 97.9 65 18 163/76 (105) 96 09/20/17 01:26 97.7 63 18 163/84 (110) 97 09/19/17 21:32 97 21 09/19/17 20:44 97.6 75 18 160/89 (112) 96 09/19/17 20:08 65 09/19/17 18:47 16 09/19/17 16:00 98.5 68 18 141/84 (103) 97 09/19/17 12:20 98.1 76 18 146/75 (98) 96 09/19/17 12:00 69 I/O 09/19/17 09/19/17 09/19/17 09/20/17 09/20/17 09/20/17 07:00 15:00 23:00 07:00 15:00 23:00 Intake Total 1800 ml 1200 ml 742 ml Output Total 2850 ml 600 ml 600 ml Balance -1050 ml 600 ml 142 ml Intake Oral 1800 ml IV Total 1200 ml 742 ml Output Urine Total 2850 ml 600 ml 600 ml # Bowel Movements 0 Result Diagram: 09/18/17 0553 09/18/17 0556 Objective Remarks GENERAL: NAD SKIN: Warm and dry. HEAD: Normocephalic. EYES: No scleral icterus. No injection or drainage. NECK: Supple, trachea midline. No JVD or lymphadenopathy. CARDIOVASCULAR: Regular rate and rhythm without murmurs, gallops, or rubs. RESPIRATORY: Breath sounds equal bilaterally. No accessory muscle use. GASTROINTESTINAL: Abdomen soft, non-tender, nondistended. MUSCULOSKELETAL: No cyanosis, or edema. BACK: Nontender without obvious deformity. No CVA tenderness.dressing over inc Procedures 09/17/17 1. Extreme lateral, trans-psoas approach with left T11 rib resection, debridement W2-1-fbgdahcu-osteomyelitis 2. Extreme lateral approach to bilateral psoas muscle abscess evacuation. 3. L2-3 interbody fusion with PEEK lateral cage, left T11 rib autograft 4. Bilateral L2-L4 posterior spinal instrumentation with percutaneous pedicle screw fixation. A/P Problem List: (1) Discitis of lumbar region ICD Code: M46.46 - Discitis, unspecified, lumbar region (2) Psoas abscess ICD Code: K68.12 - Psoas muscle abscess (3) Intractable pain ICD Code: R52 - Pain, unspecified (4) Renal insufficiency ICD Code: N28.9 - Disorder of kidney and ureter, unspecified (5) A-fib ICD Code: I48.91 - Unspecified atrial fibrillation (6) IVDU (intravenous drug user) ICD Code: F19.90 - Other psychoactive substance use, unspecified, uncomplicated Assessment and Plan 66-year-old man with 1. L-Spine Discitis/Osteomyelitis: Recurrent. Appreciate input from neurosurgery and s/p I&D 09/17/17 Continue with Cubicin and Cefepime per ID and monitor culture report Pain management accordingly PT to treat and eval 2. Psoas Abscess: Previous Left Psoas Abscess s/p CT-guided drainage, now increase in size w/ new small right psoas abscess.s/p bilateral psoas muscle abscess evacuation 09/17/17 by NSG. Continue with Cubicin and Cefepime 3. Intractable Pain: secondary to above, reports no relief w/ Tramadol, Continue PO/IV as needed 4. Renal Insufficiency: resolved 5. A. fib: continue home Digoxin, Metoprolol and Diltiazem. 6. IVDU: Denies recent use, last use May 2017 per patient, Ativan prn if needed. 7. DVT Prophylaxis: REY/Gm David MD Sep 20, 2017 10:20
--- NOTE | 2017-09-20 10:25 | HHI.NSPN ---
(Tamela Mackey) Note Status Status: Progress Note (Tamela Mackey) Interval History Interval History Mr. Hamlin s/p extreme lateral, trans-psoas approach with left T11 rib resection, debridement T2-2-emzjvcpk-osteomyelitis, extreme lateral approach to bilateral psoas muscle abscess evacuation, L2-3 interbody fusion with PEEK lateral cage, left T11 rib autograft, bilateral L2-L4 posterior spinal instrumentation with percutaneous pedicle screw fixation on Sep 17, 2017 for septic discitis of lumbar region, Psoas abscess, Lumbar discitis, residual at L2 -L3 level, Bilateral L2-3 level psoas muscle abscess. 09/19: c/o moderate at times severe left side rib pain. Otherwise reports neuro stable. 09/20: currently being cleaned due to bowel accident in bed. reports otherwise no changes today in his symptoms. (Tamela Mackey) Labs, Micro, & Vital Signs Results Date Time Temp Pulse Resp B/P (MAP) Pulse Ox O2 Delivery O2 Flow Rate FiO2 09/20/17 08:19 97.6 65 18 124/70 (88) 97 09/20/17 05:22 97.9 65 18 163/76 (105) 96 09/20/17 01:26 97.7 63 18 163/84 (110) 97 09/19/17 21:32 97 21 09/19/17 20:44 97.6 75 18 160/89 (112) 96 09/19/17 20:08 65 09/19/17 18:47 16 09/19/17 16:00 98.5 68 18 141/84 (103) 97 09/19/17 12:20 98.1 76 18 146/75 (98) 96 09/19/17 12:00 69 Constitutional Vital Signs Date Time Temp Pulse Resp B/P (MAP) Pulse Ox O2 Delivery O2 Flow Rate FiO2 09/20/17 08:19 97.6 65 18 124/70 (88) 97 09/20/17 05:22 97.9 65 18 163/76 (105) 96 09/20/17 01:26 97.7 63 18 163/84 (110) 97 09/19/17 21:32 97 21 09/19/17 20:44 97.6 75 18 160/89 (112) 96 09/19/17 20:08 65 09/19/17 18:47 16 09/19/17 16:00 98.5 68 18 141/84 (103) 97 09/19/17 12:20 98.1 76 18 146/75 (98) 96 09/19/17 12:00 69 (Tamela Mackey) Physical Exam Mr. Hamlin is alert, awake and oriented to time, place and person. Speech is fluent. Cranial nerve examination: pupils equal, round and reactive to light. Extra- ocular movements are intact. Facial motor a normal and symmetrical. Neck is soft and supple Motor: moving all major muscle groups of upper and lower extremities (Tamela Mackey) Medications Current Medications Current Medications Medications (Trade) Dose Ordered Sig/Frandy Route PRN Reason Start Time Stop Time Status Last Admin Dose Admin Sodium Chloride (NS Flush) 2 ml UNSCH PRN IV FLUSH FLUSH AFTER USING IV ACCESS 09/13/17 02:30 09/17/17 02:41 Sodium Chloride (NS Flush) 2 ml BID IV FLUSH 09/13/17 09:00 09/19/17 21:37 Ondansetron HCl (Zofran Inj) 4 mg Q6H PRN IVP NAUSEA OR VOMITING 09/13/17 02:30 Acetaminophen (Tylenol) 650 mg Q6H PRN PO FEVER/PAIN SCALE 1 TO 2 09/13/17 02:30 09/13/17 21:16 Senna/Docusate Sodium (Sabrina-Colace) 1 tab BID PO 09/13/17 09:00 09/19/17 21:36 Magnesium Hydroxide (Milk Of Magnesia Liq) 30 ml Q12H PRN PO Mild constipation 09/13/17 02:30 09/19/17 18:48 Sennosides (Senokot) 17.2 mg Q12H PRN PO Moderate constipation 09/13/17 02:30 09/19/17 18:48 Bisacodyl (Dulcolax Supp) 10 mg DAILY PRN RECTAL SEVERE CONSITIPATION 09/13/17 02:30 Lactulose (Lactulose Liq) 30 ml DAILY PRN PO SEVERE CONSITIPATION 09/13/17 02:30 09/19/17 18:48 Citalopram Hydrobromide (CeleXA) 20 mg DAILY PO 09/13/17 09:00 09/19/17 08:42 Digoxin (Lanoxin) 0.125 mg DAILY PO 09/13/17 09:00 09/19/17 08:42 Diltiazem HCl (Cardizem) 90 mg QID PO 09/13/17 09:00 09/19/17 21:36 Folic Acid (Folate) 1 mg DAILY PO 09/13/17 09:00 09/19/17 08:41 Methocarbamol (Robaxin) 500 mg TID PRN PO MUSCLE SPASM 09/13/17 02:30 09/20/17 05:48 Metoprolol Tartrate (Lopressor) 25 mg Q8HR PO 09/13/17 06:00 09/20/17 05:41 Multivitamins (Theragran) 1 tab DAILY PO 09/13/17 09:00 09/19/17 08:42 Pantoprazole Sodium (Protonix) 20 mg DAILY PO 09/13/17 09:00 09/19/17 08:41 Thiamine HCl (Vitamin B1) 100 mg DAILY PO 09/13/17 09:00 09/19/17 08:41 Albuterol/ Ipratropium (Duoneb Neb) 1 ampule Q4HR NEB PRN NEB SHORTNESS OF BREATH 09/13/17 03:00 Alprazolam (Xanax) 0.5 mg Q8H PRN PO ANXIETY 09/13/17 03:00 09/19/17 23:38 Daptomycin 650 mg/ Sodium Chloride 100 ml @ 200 mls/hr Q24H IV 09/13/17 18:00 09/19/17 17:36 Cefepime HCl 1000 mg/Sodium Chloride 100 ml @ 200 mls/hr Q12H IV 09/17/17 17:00 09/20/17 05:41 Ondansetron HCl (Zofran Inj) 4 mg Q6H PRN IV PUSH NAUSEA OR VOMITING 09/17/17 20:30 Acetaminophen/ Hydrocodone Bitart ([place] 10-325 Mg) 1 tab Q4H PRN PO PAIN SCALE 3 TO 5 09/17/17 20:45 09/18/17 13:26 Morphine Sulfate (Morphine Inj) 2 mg Q3H PRN IV PUSH Pain 3-5; if unable to take PO 09/17/17 20:45 09/18/17 00:59 Morphine Sulfate (Morphine Inj) 4 mg Q3H PRN IV PUSH BREAKTHROUGH PAIN 09/17/17 20:45 Hydromorphone HCl (Dilaudid) 2 mg Q4H PRN PO PAIN SCALE 6 TO 10 09/17/17 20:45 09/20/17 05:41 Naloxone HCl (Narcan Inj) 0.4 mg UNSCH PRN IV PUSH SEE LABEL COMMENTS 09/17/17 20:45 (Tamela Mackey) Medical Decision Making MDM Remarks 66 y/o male s/p extreme lateral, trans-psoas approach with left T11 rib resection, debridement K5-4-pehikcne-osteomyelitis, extreme lateral approach to bilateral psoas muscle abscess evacuation, L2-3 interbody fusion with PEEK lateral cage, left T11 rib autograft, bilateral L2-L4 posterior spinal instrumentation with percutaneous pedicle screw fixation on Sep 17, 2017 for septic discitis of lumbar region, Psoas abscess, Lumbar discitis, residual at L2 -L3 level, Bilateral L2-3 level psoas muscle abscess. (Tamela Mackey) Plan Plan Remarks cont pain control cont therapy cont antibiotic tx per ID following (Tamela Mackey) Attending Statement The exam, history, and the medical decision-making described in the above note were completed with the assistance of the mid-level provider. I reviewed and agree with the findings presented. I attest that I had a [id number] encounter with the patient on the same day, and personally performed and documented my assessment and findings in the medical record. (Peter Calix MD) Tamela Mackey Sep 20, 2017 10:25 Peter Calix MD Sep 22, 2017 17:56
[2017-09-20] MEDS: DAPTOmycin INJ 650 MG in SODIUM CHLORIDE 0.9% INJ 100 ML IV SCH (17:47)
[2017-09-20] MEDS: ALPRAZolam 0.5 MG TAB PO PRN (20:32)
[2017-09-21] VITALS (10 sets, daily range): BP systolic 108–148; BP diastolic 58–80; PULSE 54–80; RESP 18–22; TEMP 97.7–98.6; O2SAT 95–97
[2017-09-21] MEDS: HYDROmorphone HCL 2 MG TAB PO PRN ×5 (00:26→16:30)
[2017-09-21] MEDS: CEFEPIME INJ 1,000 MG in SODIUM CHLORIDE 0.9% INJ 100 ML IV SCH ×2 (04:12→16:30)
[2017-09-21] MEDS: METOPROLOL TARTRATE 25 MG TAB PO SCH ×3 (06:41→21:39)
[2017-09-21] MEDS: DILTIAZEM HCL 90 MG TAB PO SCH ×4 (08:18→21:00)
[2017-09-21] MEDS: CITALOPRAM HYDROBROMIDE 20 MG TAB PO SCH (08:18)
[2017-09-21] MEDS: DOCUSATE SODIUM 50 MG/SENNA 8.6 MG TAB PO SCH ×2 (08:18→21:41)
[2017-09-21] MEDS: MULTIVITAMIN TAB PO SCH (08:18)
[2017-09-21] MEDS: FOLIC ACID 1 MG TAB PO SCH (08:18)
[2017-09-21] MEDS: THIAMINE HCL 100 MG TAB PO SCH (08:18)
[2017-09-21] MEDS: PANTOPRAZOLE SOD 20 MG DELAYED RELEASE TAB PO SCH (08:19)
[2017-09-21] MEDS: DIGOXIN 0.125 MG TAB PO SCH (08:19)
[2017-09-21] MEDS: SODIUM CHLORIDE 0.9% FLUSH 10 ML FLUSH IV FLUSH SCH ×2 (08:22→21:41)
[2017-09-21 10:28] LABS: AUTOMATED NEUTROPHIL # 8.7 TH/MM3 (1.8-7.7); BASOPHIL # 0.1 TH/MM3 (0-0.2); BASOPHIL % 0.7 % (0.0-2.0); EOSINOPHIL # 0.4 TH/MM3 (0-0.4); EOSINOPHIL % 3.2 % (0.0-4.0); HEMATOCRIT 31.4 % (39.0-51.0); HEMOGLOBIN 10.7 GM/DL (13.0-17.0); LYMPH % 18.2 % (9.0-44.0); LYMPHOCYTE # 2.3 TH/MM3 (1.0-4.8); MEAN CORPUSCULAR HEMOGLOBIN 30.1 PG (27.0-34.0); MEAN CORPUSCULAR HGB CONC 34.2 % (32.0-36.0); MEAN PLATELET VOLUME 7.4 FL (7.0-11.0); MONO % 10.8 % (0.0-8.0); MONOCYTE # 1.4 TH/MM3 (0-0.9); NEUT % 67.1 % (16.0-70.0); PLATELET COUNT 416 TH/MM3 (150-450); RED BLOOD COUNT 3.57 MIL/MM3 (4.50-5.90); RED CELL DISTRIBUTION WIDTH 14.5 % (11.6-17.2); WHITE BLOOD COUNT 12.9 TH/MM3 (4.0-11.0)
[2017-09-21 10:55] LABS: BICARBONATE 26.6 MEQ/L (21.0-32.0); CALCIUM 9.1 MG/DL (8.5-10.1); CREATININE 0.85 MG/DL (0.60-1.30)
--- NOTE | 2017-09-21 11:12 | HHI.PR ---
Subjective Remarks Follow up Discitis/Osteo 09/14/17-patient seen and examined; complains of Back pain but denies any lower extremities weakness or numbness. Afebrile. Seen by NSG 09/15/17-patient seen and examined; still with back pain , but denies any bladder or bowel dysfunction. 09/16/17-patient seen and examined; no change in the level of back pain. afebrile. States he is waiting to go to the OR tomorrow 09/17/17-Patient seen and examined, NPO pending surgical intervention today. Still with back pain 09/18/17-Patient seen and examined, patient had a surgical procedure performed yesterday however states he is still having back pain. Afebrile 09/19/17-Patient seen and examined, states he is still having more back pain. Afebrile 09/20/17-Patient seen and examined; Stable despite complaint of back pain. Afebrile. No bladder or bowel dysfunction 09/21/17-Patient seen and examined; patient is requesting some Shake ; does not move much from bed. Some back pain Objective Vitals Vital Signs Date Time Temp Pulse Resp B/P (MAP) Pulse Ox O2 Delivery O2 Flow Rate FiO2 09/21/17 08:05 77 09/21/17 07:50 97.8 78 18 139/80 (99) 97 09/21/17 07:00 70 09/21/17 05:21 98.0 65 18 148/75 (99) 97 09/21/17 01:11 98.2 54 18 115/62 (79) 97 09/21/17 01:10 115/62 (79) 09/20/17 20:39 98.3 70 18 146/75 (98) 97 09/20/17 15:55 98.8 66 18 141/73 (95) 97 09/20/17 12:21 97.7 69 18 132/77 (95) 98 09/20/17 11:22 55 I/O 09/20/17 09/20/17 09/20/17 09/21/17 09/21/17 09/21/17 06:59 14:59 22:59 06:59 14:59 22:59 Intake Total 742 ml Output Total 600 ml 350 ml 600 ml Balance 142 ml -350 ml -600 ml IV Total 742 ml Output Urine Total 600 ml 350 ml 600 ml Result Diagram: 09/21/17 0701 09/21/17 0701 Objective Remarks GENERAL: NAD SKIN: Warm and dry. HEAD: Normocephalic. EYES: No scleral icterus. No injection or drainage. NECK: Supple, trachea midline. No JVD or lymphadenopathy. CARDIOVASCULAR: Regular rate and rhythm without murmurs, gallops, or rubs. RESPIRATORY: Breath sounds equal bilaterally. No accessory muscle use. GASTROINTESTINAL: Abdomen soft, non-tender, nondistended. MUSCULOSKELETAL: No cyanosis, or edema. BACK: Nontender without obvious deformity. No CVA tenderness.dressing over inc Procedures 09/17/17 1. Extreme lateral, trans-psoas approach with left T11 rib resection, debridement A3-5-lhbfuxra-osteomyelitis 2. Extreme lateral approach to bilateral psoas muscle abscess evacuation. 3. L2-3 interbody fusion with PEEK lateral cage, left T11 rib autograft 4. Bilateral L2-L4 posterior spinal instrumentation with percutaneous pedicle screw fixation. A/P Problem List: (1) Discitis of lumbar region ICD Code: M46.46 - Discitis, unspecified, lumbar region (2) Psoas abscess ICD Code: K68.12 - Psoas muscle abscess (3) Intractable pain ICD Code: R52 - Pain, unspecified (4) Renal insufficiency ICD Code: N28.9 - Disorder of kidney and ureter, unspecified (5) A-fib ICD Code: I48.91 - Unspecified atrial fibrillation (6) IVDU (intravenous drug user) ICD Code: F19.90 - Other psychoactive substance use, unspecified, uncomplicated Assessment and Plan 66-year-old man with 1. L-Spine Discitis/Osteomyelitis: Recurrent. Appreciate input from neurosurgery and s/p I&D 09/17/17 Continue with Cubicin and Cefepime per ID Pain management accordingly PT to treat and eval 2. Psoas Abscess: Previous Left Psoas Abscess s/p CT-guided drainage, now increase in size w/ new small right psoas abscess.s/p bilateral psoas muscle abscess evacuation 09/17/17 by NSG. Continue with Cubicin and Cefepime 3. Intractable Pain: secondary to above, reports no relief w/ Tramadol, Continue PO/IV as needed 4. Renal Insufficiency: resolved 5. A. fib: continue home Digoxin, Metoprolol and Diltiazem. 6. IVDU: Denies recent use, last use May 2017 per patient, Ativan prn if needed. 7. DVT Prophylaxis: REY/Gm David MD Sep 21, 2017 11:12
[2017-09-21] MEDS: METHOCARBAMOL 500 MG TAB PO PRN (12:19)
--- NOTE | 2017-09-21 13:43 | HHI.IDPN ---
Subjective Subjective Remarks This is a 66-year-old male past medical history significant for IVDU, MRSA bacteremia, MRSA L2-L3 discitis, Hep C and A. fib with RVR secondary to withdrawal who was admitted May 22, 2017 with altered mental status and complaints of left-sided back pain. MRI of the thoracic and lumbar spine revealed degenerative changes but no evidence for abscess or fluid collection.. Blood cultures were obtained at that time and 4/4 bottles grew MRSA. Patient was seen in consultation by Dr. Hernandez. Patient had a lumbar puncture and CSF revealed total protein of 986 and glucose of 1. Gram stain revealed many white cells but no organisms were seen. Additionally, patient's drug screen was positive for cocaine. Due to concern for possible bacterial meningitis, patient was treated with IV ceftriaxone, vancomycin and ampicillin. CSF culture failed to show any growth. CT of the chest revealed moderate size bilateral pleural effusions with small areas of patchy consolidation concerning for infection. He underwent bilateral chest tube placement with pleural fluid analysis suggestive of transudative effusion. CT of abdomen and pelvis showed retroperitoneal inflammation around the abdominal aorta as well as extensive small lymph nodes throughout the retroperitoneum free fluid in both pericolic gutters right greater than left possible discitis at L2-3 with cystic changes noted in the endplates. He underwent a CT guided needle biopsy Dec of the L2L3 disc space aspirate grew MRSA which was resistant to penicillin and ceftriaxone but sensitive to vancomycin therefore, patient was continued on vancomycin alone. ESR was 140 and CRP was 26. CT thoracic and lumbar spine obtained June 05 revealed progression of L2-3 discitis and interval development of multiple small psoas muscle loculations bilaterally characteristic abscesses with compression of the thecal sac. Patient was seen in consultation by Dr. Krause of neurosurgery who did not feel surgical intervention was warranted at that time. On 06/09/17, patient was admitted to [facility] for comprehensive rehabilitation. On 06/12/17, repeat MRI lumbar spine revealed worsening of marrow edema now involving L1 to L4 and a small epidural abscess at L2 to L3 as well as dural enhancement and nerve root enhancement character significant infectious radiculitis and multi-locular left psoas abscess. On 06/16/17, patient underwent CT-guided aspiration of left psoas abscess which was positive for MRSA. Repeat blood cultures 05/28 and 06/05 were negative. Patient underwent echocardiogram and LEXIE which failed to show any evidence of infectious endocarditis. Patient also had Pseudomonas UTI that was treated with IV cefepime and changed to Levaquin. Patient developed acute renal failure likely due to vancomycin which was discontinued and he was treated with daptomycin with an end date of 07/26/17. Patient was discharged from [facility] to [facility] where he continued another month of IV antibiotic treatment. He then followed with Dr. Snyder as an outpatient and continued to be managed with oral antibiotics the names of which he is not sure of but thinks one may have been Bactrim. He was seen in Dr. Snyder's office two weeks ago and was told he had normal labs and had completed his antibiotic treatment course. This past Thursday, patient went to see his PCP Dr. Hwang with complaints of "not feeling well" and increased low back pain. Patient states that Thursday he began having new right- sided back pain with extension into the right buttock and right inguinal area as well as numbness and tingling down the front of the right leg and an increase in left-sided back pain prompting him to come into the ED for further evaluation. Patient states he last used IV drugs May 2017. In the ED, patient is afebrile. White count is elevated at 19. Lactic acid is 0.7. He is tachycardic with heart rate of 95. Blood cultures are pending. MRI thoracic and lumbar spine shows evidence of osteomyelitis/discitis of lumbar spine, anterior epidural fluid collection/abscess at L2-3 that has decreased in size however circumferential epidural soft tissue enhancement has increased in severity and extent resulting in increased central canal stenosis most severe at L2-3. Also noted is a slight increase in size of left psoas abscess and new small right psoas abscess. CT of abdomen and pelvis reveals progressive endplate vertebral body destruction at L2-3 and L3 4 with increased soft tissue density paraspinous regions and retroperitoneum with adenopathy concerning for ongoing infections and discitis. Infectious disease has been consulted for evaluation and management of lumbar osteomyelitis/discitis. He was evaluated in CDU. He is asleep but easily awakens to voice. Appears comfortable while lying supine. He has no complaints of fever, chills, nausea, vomiting, dysuria or diarrhea. He denies any weakness of bilateral lower extremities, bowel or bladder incontinence or saddle anesthesia. He does report difficulty sitting up and turning over secondary to increase back and buttock pain. Neurosurgery has been consulted as well. Notes reviewed Temps ok NO diarrhea No itching AMbulating in room Labs reviewed Cultures reviewed Antibiotics Cefepime IV Dapto IV Current Medications Medications (Trade) Dose Ordered Sig/Frandy Route Start Time Stop Time Status Last Admin (NS Flush) 2 ml UNSCH PRN IV FLUSH 09/13/17 02:30 09/17/17 02:41 (NS Flush) 2 ml BID IV FLUSH 09/13/17 09:00 09/21/17 08:22 (Zofran Inj) 4 mg Q6H PRN IVP 09/13/17 02:30 (Tylenol) 650 mg Q6H PRN PO 09/13/17 02:30 09/13/17 21:16 (Sabrina-Colace) 1 tab BID PO 09/13/17 09:00 09/21/17 08:18 (Milk Of Magnesia Liq) 30 ml Q12H PRN PO 09/13/17 02:30 09/19/17 18:48 (Senokot) 17.2 mg Q12H PRN PO 09/13/17 02:30 09/19/17 18:48 (Dulcolax Supp) 10 mg DAILY PRN RECTAL 09/13/17 02:30 (Lactulose Liq) 30 ml DAILY PRN PO 09/13/17 02:30 09/19/17 18:48 (CeleXA) 20 mg DAILY PO 09/13/17 09:00 09/21/17 08:18 (Lanoxin) 0.125 mg DAILY PO 09/13/17 09:00 09/21/17 08:19 (Cardizem) 90 mg QID PO 09/13/17 09:00 09/21/17 08:18 (Folate) 1 mg DAILY PO 09/13/17 09:00 09/21/17 08:18 (Robaxin) 500 mg TID PRN PO 09/13/17 02:30 09/21/17 12:19 (Lopressor) 25 mg Q8HR PO 09/13/17 06:00 09/21/17 06:41 (Theragran) 1 tab DAILY PO 09/13/17 09:00 09/21/17 08:18 (Protonix) 20 mg DAILY PO 09/13/17 09:00 09/21/17 08:19 (Vitamin B1) 100 mg DAILY PO 09/13/17 09:00 09/21/17 08:18 (Duoneb Neb) 1 ampule Q4HR NEB PRN NEB 09/13/17 03:00 (Xanax) 0.5 mg Q8H PRN PO 09/13/17 03:00 09/20/17 20:32 Daptomycin 650 mg/ Sodium Chloride 100 ml @ 200 mls/hr Q24H IV 09/13/17 18:00 09/20/17 17:47 Cefepime HCl 1000 mg/Sodium Chloride 100 ml @ 200 mls/hr Q12H IV 09/17/17 17:00 09/21/17 04:12 (Zofran Inj) 4 mg Q6H PRN IV PUSH 09/17/17 20:30 (Everly 10-325 Mg) 1 tab Q4H PRN PO 09/17/17 20:45 09/18/17 13:26 (Morphine Inj) 2 mg Q3H PRN IV PUSH 09/17/17 20:45 09/18/17 00:59 (Morphine Inj) 4 mg Q3H PRN IV PUSH 09/17/17 20:45 (Dilaudid) 2 mg Q4H PRN PO 09/17/17 20:45 09/21/17 12:20 (Narcan Inj) 0.4 mg UNSCH PRN IV PUSH 09/17/17 20:45 Lines Line sites with no e.o infection Past Medical History reviewed Allergies: Coded Allergies: No Known Allergies (Unverified Allergy, Unknown, 09/12/17) Objective . Vital Signs Date Time Temp Pulse Resp B/P (MAP) Pulse Ox O2 Delivery O2 Flow Rate FiO2 09/21/17 13:15 73 09/21/17 08:05 77 09/21/17 07:50 97.8 78 18 139/80 (99) 97 09/21/17 07:00 70 09/21/17 05:21 98.0 65 18 148/75 (99) 97 09/21/17 01:11 98.2 54 18 115/62 (79) 97 09/21/17 01:10 115/62 (79) 09/20/17 20:39 98.3 70 18 146/75 (98) 97 09/20/17 15:55 98.8 66 18 141/73 (95) 97 09/21/17 09/21/17 09/22/17 15:00 23:00 07:00 Output Total 300 ml Balance -300 ml Output Urine Total 300 ml . Laboratory Tests Test 09/21/17 07:01 White Blood Count 12.9 TH/MM3 Red Blood Count 3.57 MIL/MM3 Hemoglobin 10.7 GM/DL Hematocrit 31.4 % Mean Corpuscular Volume 88.0 FL Mean Corpuscular Hemoglobin 30.1 PG Mean Corpuscular Hemoglobin Concent 34.2 % Red Cell Distribution Width 14.5 % Platelet Count 416 TH/MM3 Mean Platelet Volume 7.4 FL Neutrophils (%) (Auto) 67.1 % Lymphocytes (%) (Auto) 18.2 % Monocytes (%) (Auto) 10.8 % Eosinophils (%) (Auto) 3.2 % Basophils (%) (Auto) 0.7 % Neutrophils # (Auto) 8.7 TH/MM3 Lymphocytes # (Auto) 2.3 TH/MM3 Monocytes # (Auto) 1.4 TH/MM3 Eosinophils # (Auto) 0.4 TH/MM3 Basophils # (Auto) 0.1 TH/MM3 CBC Comment AUTO DIFF Differential Comment AUTO DIFF CONFIRMED Platelet Estimate NORMAL Platelet Morphology Comment NORMAL Red Cell Morphology Comment NORMAL Laboratory Tests Test 09/21/17 07:01 Blood Urea Nitrogen 11 MG/DL Creatinine 0.85 MG/DL Random Glucose 67 MG/DL Calcium Level 9.1 MG/DL Sodium Level 135 MEQ/L Potassium Level 3.8 MEQ/L Chloride Level 100 MEQ/L Carbon Dioxide Level 26.6 MEQ/L Anion Gap 8 MEQ/L Estimat Glomerular Filtration Rate 90 ML/MIN Imaging Last Impressions Abdomen/Pelvis CT 09/12/172114 Signed Impressions: Service Date/Time: Tuesday, September 12, 2017 22:42 - CONCLUSION: Progressive endplate and vertebral body destruction at the L2-L3 and L3-L4 levels with increased soft tissue density in the paraspinous regions and retroperitoneum with adenopathy all concerning for ongoing infection and discitis. The patient is scheduled for MRI examinations of the thoracic and lumbar spines. Giovanni Gomez MD Thoracic Spine MRI 09/12/17 0000 Signed Impressions: Service Date/Time: Wednesday, September 13, 2017 00:02 - CONCLUSION: No significant interval change. No evidence of abscess in the thoracic spine region. Scott Morfin MD Lumbar Spine MRI 09/12/17 0000 Signed Impressions: Service Date/Time: Wednesday, September 13, 2017 00:02 - CONCLUSION: Evidence of osteomyelitis/discitis of the lumbar spine again seen. The defined anterior epidural fluid collection/abscess at L2-3 has decreased in size. However the ill-defined circumferential epidural soft tissue enhancement has increased in severity and extent. This results in increased central canal stenosis, most severe at L2-3. Slight increase in size of left psoas abscess and new small right psoas abscess also noted. Scott Morfin MD Physical Exam GENERAL: This is a well-nourished, well-developed male, in no apparent distress. SKIN: Cool and dry. No generalized rash HEAD: Atraumatic. Normocephalic. No temporal or scalp tenderness. EYES: [place] conjunctivae, no petechia or hemorrhage or injection. EOMs full and intact. No scleral icterus. ENT: Nose without bleeding or purulent drainage. Moist oral mucosa, no oral thrush noted. NECK: Trachea midline. No lymphadenopathy. Supple, nontender, no meningeal signs. CARDIOVASCULAR: Regular rate and rhythm without murmurs, gallops, or rubs. RESPIRATORY: Clear to auscultation. Breath sounds equal bilaterally. No wheezes , rales, or rhonchi. GASTROINTESTINAL: Abdomen soft, non-tender, nondistended. No hepato-splenomegaly , or palpable masses. No guarding. MUSCULOSKELETAL: Extremities without clubbing, cyanosis, or edema. No joint tenderness, effusion, or edema noted. No calf tenderness. Thoracic and lumbar spine nontender to palpation. NEUROLOGICAL: Grossly nonfocal PSYCH: Calm and cooperative LINE: No evidence of infection Assessment & Plan Remarks Discitis/osteomyelitis L2 - L4 with subsequent central canal stenosis most severe L2-3 - last surgery 09/17 Psoas R muscle abscess. Acute renal failure: prerenal, sepsis. Abnormal LFts: Hepatitis, sepsis. Hyperglycemia uncontrolled DM, sepsis related. Elevated CRP Hx of MRSA bacteremia Hx of MRSA discitis Hx of MRSA left psoas abscess Hep C Hx of IVDU Atrial fibrillation Hx of renal failure while on Vancomycin Recs: Continue Cefepime IV (started after surgery, was on hold prior to surgery) Continue Daptomycin IV (ASP: failed Vanco, was on Dapto, may need further change based on cultures) Check CPK Follow cultures Monitor progress Lizbeth Pitt MD Sep 21, 2017 13:43
--- NOTE | 2017-09-21 16:35 | HHI.NSPN ---
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 He has been followed by Dr. Krause from neurosurgery and infectious disease on inpatient and outpatient setting. Complains of recurrent and worsening back pain with intermittent pain rating down to the right leg and thigh and calf with intermittent numbness. Denies any weakness or incontinence. It is placed on tramadol but states this is not helping control his pain and therefore was scheduled to see a pain specialist later next week as well as a follow-up MRI scan. His back pain worsened and he presented to the emergency room last evening and MRI scan of the thoracic and lumbar spine obtained reveals extensive L1-2, L2-3 and L3-4 discitis with osteomyelitis along with a moderate spinal stenosis from epidural abscess along with psoas abscesses. When compared to the MRI scan in June of the stenosis appears to have progressed especially at the L2-3 level. He has been receiving Percocet and morphine for pain and appears to be comfortable with this regimen. 09/14: No significant change in back pain overnight. No ongoing pain and weakness or numbness in the lower extremities today. No complaints of bowel or bladder dysfunction. He states that his pain in the back, worse last week, with intermittent pain radiating to the lower extremities with ambulation. No neck pain or upper extremity pain weakness or numbness. 09/15: The patient is awake and alert in bed visiting with a friend when seen. He says he has pain to the back with movement. He did say last night he had some numbness and tingling going into the right lower extremity down to the toes after he came out of the MRI. He had severe pain to the back secondary to having to lay flat for the MRI. At present he has no numbness or tingling to the lower extremities and minimal back pain. His neuro exam is unchanged from yesterday. 09/16: This morning the patient continues to do well. He has low back pain with movement. He says he feels he is getting weaker. He denies any pain, numbness or tingling to the extremities. Upon examination he does seem slightly weaker to the left lower extremity. 09/17: The patient went to the operating room for an extreme lateral, trans- psoas approach with left T11 rib resection for debridement of L2-3 discitis/ osteomyelitis with interbody fusion with PEEK lateral cage and bilateral L2-L4 posterior spinal instrumentation and pedicle screw fixation and left T11 rib autograft as well as an extreme lateral approach to evacuate a bilateral psoas muscle abscess. Post-operatively the patient returned to the med/surg floor for further care and monitoring. 09/18: When seen the patient is awake and visiting with a friend. He does say he has low back pain but denies any pain, numbness or tingling to the lower extremities. He states that they feel "pretty strong." Upon examination he had no pain or numbness to the lower extremities and his strength was good except he had mild weakness to the left hamstring. 09/19: c/o moderate at times severe left side rib pain. Otherwise reports neuro stable. 09/20: currently being cleaned due to bowel accident in bed. reports otherwise no changes today in his symptoms. 09/21: This afternoon the patient is awake and alert in bed watching TV. He does say that he has some low back pain as well as pain when taking a deep breath. He denies any headache or dizziness. He has no pain, numbness or tingling to the lower extremities. He is moving all extremities without any difficulty when seen. He does comment that he isn't certain if hydromorphone 2 mg will be sufficient to manage his pain but says he will see how it goes. (Onur Montana) Exam Results 09/19/17 09/19/17 09/20/17 09/20/17 09/21/17 09/21/17 06:00 18:00 06:00 18:00 06:00 18:00 Intake Total 2750 ml 1942 ml Output Total 4650 ml 1000 ml 200 ml 950 ml 300 ml Balance -1900 ml 942 ml -200 ml -950 ml -300 ml Intake Oral 2750 ml IV Total 1942 ml Output Urine Total 4650 ml 1000 ml 200 ml 950 ml 300 ml # Bowel Movements 0 Vital Signs Date Time Temp Pulse Resp B/P (MAP) Pulse Ox O2 Delivery O2 Flow Rate FiO2 09/21/17 13:15 73 09/21/17 08:05 77 09/21/17 07:50 97.8 78 18 139/80 (99) 97 09/21/17 07:00 70 09/21/17 05:21 98.0 65 18 148/75 (99) 97 09/21/17 01:11 98.2 54 18 115/62 (79) 97 09/21/17 01:10 115/62 (79) 09/20/17 20:39 98.3 70 18 146/75 (98) 97 09/20/17 15:55 98.8 66 18 141/73 (95) 97 09/20/17 12:21 97.7 69 18 132/77 (95) 98 09/20/17 11:22 55 09/20/17 08:19 97.6 65 18 124/70 (88) 97 09/20/17 05:22 97.9 65 18 163/76 (105) 96 09/20/17 01:26 97.7 63 18 163/84 (110) 97 09/19/17 21:32 97 21 09/19/17 20:44 97.6 75 18 160/89 (112) 96 09/19/17 20:08 65 09/19/17 18:47 16 09/19/17 16:00 98.5 68 18 141/84 (103) 97 09/19/17 12:20 98.1 76 18 146/75 (98) 96 09/19/17 12:00 69 09/19/17 08:00 65 09/19/17 05:30 97.6 88 19 136/66 (89) 98 09/19/17 00:20 98.0 80 18 142/67 (92) 99 09/18/17 21:00 98.3 89 17 148/80 (102) 98 (Onur Montana) Physical Examination GENERAL: Awake & alert in bed watching TV. Affect normal. Readily interacts. No apparent distress. HEENT: Normocephalic. Atraumatic. MUSCULOSKELETAL: MCKEON spontaneously & purposefully w/o any difficulty. No evident clubbing or deformity. Midline thoracolumbar spine TTP at incision. Right lateral and left posterolateral surgical incisions NTTP. All dressings dry & intact w/o any shadowing. NEUORLOGICAL: AAOx3. Speech clear & appropriate. Follow commands w/o difficulty. Sensation intact to light touch to the lower extremities. Muscle strength 5/5 to all major flexion & extension muscle groups of the lower extremities. (Onur Montana) Lab, Micro, Other Results Laboratory Tests Test 09/21/17 07:01 White Blood Count 12.9 TH/MM3 Red Blood Count 3.57 MIL/MM3 Hemoglobin 10.7 GM/DL Hematocrit 31.4 % Mean Corpuscular Volume 88.0 FL Mean Corpuscular Hemoglobin 30.1 PG Mean Corpuscular Hemoglobin Concent 34.2 % Red Cell Distribution Width 14.5 % Platelet Count 416 TH/MM3 Mean Platelet Volume 7.4 FL Neutrophils (%) (Auto) 67.1 % Lymphocytes (%) (Auto) 18.2 % Monocytes (%) (Auto) 10.8 % Eosinophils (%) (Auto) 3.2 % Basophils (%) (Auto) 0.7 % Neutrophils # (Auto) 8.7 TH/MM3 Lymphocytes # (Auto) 2.3 TH/MM3 Monocytes # (Auto) 1.4 TH/MM3 Eosinophils # (Auto) 0.4 TH/MM3 Basophils # (Auto) 0.1 TH/MM3 CBC Comment AUTO DIFF Differential Comment AUTO DIFF CONFIRMED Platelet Estimate NORMAL Platelet Morphology Comment NORMAL Red Cell Morphology Comment NORMAL Blood Urea Nitrogen 11 MG/DL Creatinine 0.85 MG/DL Random Glucose 67 MG/DL Calcium Level 9.1 MG/DL Sodium Level 135 MEQ/L Potassium Level 3.8 MEQ/L Chloride Level 100 MEQ/L Carbon Dioxide Level 26.6 MEQ/L Anion Gap 8 MEQ/L Estimat Glomerular Filtration Rate 90 ML/MIN (Onur Montana) Medical Decision Making Impression and Plan Impression: 1. Lumbar discitis and osteomyelitis. His most recent MRI imaging and CT scan of the abdomen images are reviewed by the undersigned today. There appears to be healing of the L3 4 disc space with possible spontaneous fusion across this level. At the L1-L2 level, there is diminished epidural abscess component compared to his previous MRI. At the L2-L3 level, there is significant destruction of the vertebral endplates and vertebral body adjacent to the L2-3 disc space. Previous epidural abscess component is resolved at this level, but there is increased granulation tissue with moderately severe canal stenosis. Significant bilateral psoas muscle abscess persists with a fluid component bilaterally, somewhat worse compared to the previous MRI scan. Postoperative Diagnosis: (1) Septic discitis of lumbar region (2) Psoas abscess Lumbar discitis, residual at L2-L3 level Bilateral L2-3 level psoas muscle abscess Patient continues to do well. He continues to have low back pain and rib pain but appears comfortable. No evident sensorimotor deficits to the lower extremities. Reviewed labs for today. Improvement in leukocytosis. Haemoglobin level essentially stable. Hyponatremia. Improvement in eGFR. Wound culture positive for Staphylococcus aureus on final . POD #4 () s/p: 1. Extreme lateral, trans-psoas approach with left T11 rib resection, debridement [id number]-vwtsbors-osteomyelitis 2. Extreme lateral approach to bilateral psoas muscle abscess evacuation. 3. L2-3 interbody fusion with PEEK lateral cage, left T11 rib autograft 4. Bilateral L2-L4 posterior spinal instrumentation with percutaneous pedicle screw fixation. Plan: Primary management per Hospitalist. Antibiotics per Infectious Disease. Neuro checks. TLSO brace when OOB. Mobilise patient w/assistance. Physical Therapy eval & tx. (Onur Montana) Attending Statement The exam, history, and the medical decision-making described in the above note were completed with the assistance of the mid-level provider. I reviewed and agree with the findings presented. I attest that I had a [id number] encounter with the patient on the same day, and personally performed and documented my assessment and findings in the medical record. My examination on 09/21/2017 reveal patient awake and alert, moderate back pain. Sensory light touch and motor function intact lower extremities Dressing dry Stable postop Adjust pain meds Therapy Infectious disease following (José Antonio Krause MD) Onur Montana Sep 21, 2017 16:35 José Antonio Krause MD Sep 23, 2017 22:37
[2017-09-21] MEDS: DAPTOmycin INJ 650 MG in SODIUM CHLORIDE 0.9% INJ 100 ML IV SCH (17:37)
[2017-09-21] MEDS: MORPHINE SULFATE 2 MG/ML SYRINGE IV PUSH PRN (21:43)
[2017-09-21] MEDS: ALPRAZolam 0.5 MG TAB PO PRN (21:48)
[2017-09-22] VITALS (7 sets, daily range): BP systolic 110–120; BP diastolic 57–68; PULSE 53–76; RESP 18–21; TEMP 97.7–97.8; O2SAT 96–98
[2017-09-22] MEDS: METOPROLOL TARTRATE 25 MG TAB PO SCH ×3 (05:15→22:00)
[2017-09-22] MEDS: CEFEPIME INJ 1,000 MG in SODIUM CHLORIDE 0.9% INJ 100 ML IV SCH ×2 (05:15→17:30)
[2017-09-22] MEDS: HYDROmorphone HCL 2 MG TAB PO PRN ×5 (05:16→22:21)
[2017-09-22] MEDS: PANTOPRAZOLE SOD 20 MG DELAYED RELEASE TAB PO SCH (09:10)
[2017-09-22] MEDS: CITALOPRAM HYDROBROMIDE 20 MG TAB PO SCH (09:10)
[2017-09-22] MEDS: THIAMINE HCL 100 MG TAB PO SCH (09:10)
[2017-09-22] MEDS: DILTIAZEM HCL 90 MG TAB PO SCH ×4 (09:10→21:00)
[2017-09-22] MEDS: DIGOXIN 0.125 MG TAB PO SCH (09:10)
[2017-09-22] MEDS: MULTIVITAMIN TAB PO SCH (09:10)
[2017-09-22] MEDS: DOCUSATE SODIUM 50 MG/SENNA 8.6 MG TAB PO SCH ×2 (09:11→22:21)
[2017-09-22] MEDS: SODIUM CHLORIDE 0.9% FLUSH 10 ML FLUSH IV FLUSH SCH ×2 (09:11→22:23)
[2017-09-22] MEDS: FOLIC ACID 1 MG TAB PO SCH (09:11)
--- NOTE | 2017-09-22 10:45 | HHI.PR ---
Subjective Remarks Follow up Discitis/Osteo 09/14/17-patient seen and examined; complains of Back pain but denies any lower extremities weakness or numbness. Afebrile. Seen by NSG 09/15/17-patient seen and examined; still with back pain , but denies any bladder or bowel dysfunction. 09/16/17-patient seen and examined; no change in the level of back pain. afebrile. States he is waiting to go to the OR tomorrow 09/17/17-Patient seen and examined, NPO pending surgical intervention today. Still with back pain 09/18/17-Patient seen and examined, patient had a surgical procedure performed yesterday however states he is still having back pain. Afebrile 09/19/17-Patient seen and examined, states he is still having more back pain. Afebrile 09/20/17-Patient seen and examined; Stable despite complaint of back pain. Afebrile. No bladder or bowel dysfunction 09/21/17-Patient seen and examined; patient is requesting some Shake ; does not move much from bed. Some back pain September 22, 2017-patient seen and examined, he was able to ambulate yesterday without any significant pain to his back. Stable today Objective Vitals Vital Signs Date Time Temp Pulse Resp B/P (MAP) Pulse Ox O2 Delivery O2 Flow Rate FiO2 09/22/17 10:37 67 09/22/17 06:25 18 09/22/17 02:09 18 09/22/17 00:00 70 09/21/17 22:16 18 09/21/17 20:00 70 09/21/17 20:00 97.7 71 18 120/67 (84) 95 09/21/17 16:56 98.6 80 18 126/74 (91) 97 09/21/17 13:15 73 09/21/17 12:00 98.0 79 22 133/77 (95) 97 I/O 09/21/17 09/21/17 09/21/17 09/22/17 09/22/17 09/22/17 07:00 15:00 23:00 07:00 15:00 23:00 Output Total 600 ml 300 ml Balance -600 ml -300 ml Output Urine Total 600 ml 300 ml # Voids 6 # Bowel Movements 1 Result Diagram: 09/21/17 0709/21/17 07 Objective Remarks GENERAL: NAD SKIN: Warm and dry. HEAD: Normocephalic. EYES: No scleral icterus. No injection or drainage. NECK: Supple, trachea midline. No JVD or lymphadenopathy. CARDIOVASCULAR: Regular rate and rhythm without murmurs, gallops, or rubs. RESPIRATORY: Breath sounds equal bilaterally. No accessory muscle use. GASTROINTESTINAL: Abdomen soft, non-tender, nondistended. MUSCULOSKELETAL: No cyanosis, or edema. BACK: Nontender without obvious deformity. No CVA tenderness.dressing over inc Procedures 09/17/17 1. Extreme lateral, trans-psoas approach with left T11 rib resection, debridement [id number]-osteomyelitis 2. Extreme lateral approach to bilateral psoas muscle abscess evacuation. 3. L2-3 interbody fusion with PEEK lateral cage, left T11 rib autograft 4. Bilateral L2-L4 posterior spinal instrumentation with percutaneous pedicle screw fixation. A/P Problem List: (1) Discitis of lumbar region ICD Code: M46.46 - Discitis, unspecified, lumbar region (2) Psoas abscess ICD Code: K68.12 - Psoas muscle abscess (3) Intractable pain ICD Code: R52 - Pain, unspecified (4) Renal insufficiency ICD Code: N28.9 - Disorder of kidney and ureter, unspecified (5) A-fib ICD Code: I48.91 - Unspecified atrial fibrillation (6) IVDU (intravenous drug user) ICD Code: F19.90 - Other psychoactive substance use, unspecified, uncomplicated Assessment and Plan 66-year-old man with 1. L-Spine Discitis/Osteomyelitis: Recurrent. Appreciate input from neurosurgery and s/p I&D 09/17/17 Continue with Cubicin and Cefepime pending final culture report per ID Pain management accordingly TLSO brace when out of bed PT to treat and eval 2. Psoas Abscess: Previous Left Psoas Abscess s/p CT-guided drainage, now increase in size w/ new small right psoas abscess.s/p bilateral psoas muscle abscess evacuation 09/17/17 by NSG. Continue with Cubicin and Cefepime pending final culture report 3. Intractable Pain: secondary to above, reports no relief w/ Tramadol, Continue PO/IV as needed 4. Renal Insufficiency: resolved 5. A. fib: continue home Digoxin, Metoprolol and Diltiazem. 6. IVDU: Denies recent use, last use May 2017 per patient, Ativan prn if needed. 7. DVT Prophylaxis: REY/Gm David MD Sep 22, 2017 10:45
[2017-09-22] MEDS: DAPTOmycin INJ 650 MG in SODIUM CHLORIDE 0.9% INJ 100 ML IV SCH (18:15)
[2017-09-22] MEDS: ALPRAZolam 0.5 MG TAB PO PRN (22:21)
[2017-09-23] VITALS: BP 112/62; PULSE 62; PULSE 63; RESP 16; TEMP 97.8; O2SAT 99
[2017-09-23] MEDS: HYDROmorphone HCL 2 MG TAB PO PRN ×5 (03:08→20:40)
[2017-09-23 04:00] VITALS: BP 112/65; PULSE 65; PULSE 69; RESP 18; TEMP 98.2; O2SAT 97
[2017-09-23] MEDS: METOPROLOL TARTRATE 25 MG TAB PO SCH ×3 (04:42→20:40)
[2017-09-23] MEDS: CEFEPIME INJ 1,000 MG in SODIUM CHLORIDE 0.9% INJ 100 ML IV SCH (04:51)
[2017-09-23] MEDS: THIAMINE HCL 100 MG TAB PO SCH (08:10)
[2017-09-23] MEDS: MULTIVITAMIN TAB PO SCH (08:10)
[2017-09-23] MEDS: DOCUSATE SODIUM 50 MG/SENNA 8.6 MG TAB PO SCH ×2 (08:11→20:40)
[2017-09-23] MEDS: PANTOPRAZOLE SOD 20 MG DELAYED RELEASE TAB PO SCH (08:11)
[2017-09-23] MEDS: DIGOXIN 0.125 MG TAB PO SCH (08:11)
[2017-09-23] MEDS: FOLIC ACID 1 MG TAB PO SCH (08:11)
[2017-09-23] MEDS: CITALOPRAM HYDROBROMIDE 20 MG TAB PO SCH (08:11)
[2017-09-23] MEDS: DILTIAZEM HCL 90 MG TAB PO SCH ×4 (08:13→20:40)
[2017-09-23] MEDS: SODIUM CHLORIDE 0.9% FLUSH 10 ML FLUSH IV FLUSH SCH ×2 (08:13→20:40)
[2017-09-23 08:26] VITALS: BP 106/65; PULSE 69; RESP 20; TEMP 97.3; O2SAT 97
--- NOTE | 2017-09-23 09:42 | HHI.IDPN ---
Subjective Subjective Remarks Patient seen and examined with Dr. Del Real This is a 66-year-old male past medical history significant for IVDU, MRSA bacteremia, MRSA L2-L3 discitis, Hep C and A. fib with RVR secondary to withdrawal who was admitted May 22, 2017 with altered mental status and complaints of left-sided back pain. MRI of the thoracic and lumbar spine revealed degenerative changes but no evidence for abscess or fluid collection.. Blood cultures were obtained at that time and 4/4 bottles grew MRSA. Patient was seen in consultation by Dr. Hernandez. Patient had a lumbar puncture and CSF revealed total protein of 986 and glucose of 1. Gram stain revealed many white cells but no organisms were seen. Additionally, patient's drug screen was positive for cocaine. Due to concern for possible bacterial meningitis, patient was treated with IV ceftriaxone, vancomycin and ampicillin. CSF culture failed to show any growth. CT of the chest revealed moderate size bilateral pleural effusions with small areas of patchy consolidation concerning for infection. He underwent bilateral chest tube placement with pleural fluid analysis suggestive of transudative effusion. CT of abdomen and pelvis showed retroperitoneal inflammation around the abdominal aorta as well as extensive small lymph nodes throughout the retroperitoneum free fluid in both pericolic gutters right greater than left possible discitis at L2-3 with cystic changes noted in the endplates. He underwent a CT guided needle biopsy Dec of the L2L3 disc space aspirate grew MRSA which was resistant to penicillin and ceftriaxone but sensitive to vancomycin therefore, patient was continued on vancomycin alone. ESR was 140 and CRP was 26. CT thoracic and lumbar spine obtained June 05 revealed progression of L2-3 discitis and interval development of multiple small psoas muscle loculations bilaterally characteristic abscesses with compression of the thecal sac. Patient was seen in consultation by Dr. Krause of neurosurgery who did not feel surgical intervention was warranted at that time. On 06/09/17, patient was admitted to [facility] for comprehensive rehabilitation. On 06/12/17, repeat MRI lumbar spine revealed worsening of marrow edema now involving L1 to L4 and a small epidural abscess at L2 to L3 as well as dural enhancement and nerve root enhancement character significant infectious radiculitis and multi-locular left psoas abscess. On 06/16/17, patient underwent CT-guided aspiration of left psoas abscess which was positive for MRSA. Repeat blood cultures 05/28 and 06/05 were negative. Patient underwent echocardiogram and LEXIE which failed to show any evidence of infectious endocarditis. Patient also had Pseudomonas UTI that was treated with IV cefepime and changed to Levaquin. Patient developed acute renal failure likely due to vancomycin which was discontinued and he was treated with daptomycin with an end date of 07/26/17. Patient was discharged from [facility] to [facility] where he continued another month of IV antibiotic treatment. He then followed with Dr. Snyder as an outpatient and continued to be managed with oral antibiotics the names of which he is not sure of but thinks one may have been Bactrim. He was seen in Dr. Snyder's office two weeks ago and was told he had normal labs and had completed his antibiotic treatment course. This past Thursday, patient went to see his PCP Dr. Hwang with complaints of "not feeling well" and increased low back pain. Patient states that Thursday he began having new right- sided back pain with extension into the right buttock and right inguinal area as well as numbness and tingling down the front of the right leg and an increase in left-sided back pain prompting him to come into the ED for further evaluation. Patient states he last used IV drugs May 2017. In the ED, patient is afebrile. White count is elevated at 19. Lactic acid is 0.7. He is tachycardic with heart rate of 95. Blood cultures are pending. MRI thoracic and lumbar spine shows evidence of osteomyelitis/discitis of lumbar spine, anterior epidural fluid collection/abscess at L2-3 that has decreased in size however circumferential epidural soft tissue enhancement has increased in severity and extent resulting in increased central canal stenosis most severe at L2-3. Also noted is a slight increase in size of left psoas abscess and new small right psoas abscess. CT of abdomen and pelvis reveals progressive endplate vertebral body destruction at L2-3 and L3 4 with increased soft tissue density paraspinous regions and retroperitoneum with adenopathy concerning for ongoing infections and discitis. Infectious disease has been consulted for evaluation and management of lumbar osteomyelitis/discitis. He was evaluated in CDU. He is asleep but easily awakens to voice. Appears comfortable while lying supine. He has no complaints of fever, chills, nausea, vomiting, dysuria or diarrhea. He denies any weakness of bilateral lower extremities, bowel or bladder incontinence or saddle anesthesia. He does report difficulty sitting up and turning over secondary to increase back and buttock pain. Neurosurgery has been consulted as well. Notes reviewed patient states he feels well does report left sided rib pain s/p resection and lumbar pain, controlled with current narcotic regimen patient denies any fever or chills denies any rash denies any N/V, abdominal pain denies any dysuria or diarrhea afebrile Last WBC 09/21 - 12.9 Left psoas abscess MRSA BCX with no growth Antibiotics Cefepime IV Dapto IV Current Medications Medications (Trade) Dose Ordered Sig/Frandy Route Start Time Stop Time Status Last Admin (NS Flush) 2 ml UNSCH PRN IV FLUSH 09/13/17 02:30 09/17/17 02:41 (NS Flush) 2 ml BID IV FLUSH 09/13/17 09:00 09/23/17 08:13 (Zofran Inj) 4 mg Q6H PRN IVP 09/13/17 02:30 (Tylenol) 650 mg Q6H PRN PO 09/13/17 02:30 09/13/17 21:16 (Sabrina-Colace) 1 tab BID PO 09/13/17 09:00 09/23/17 08:11 (Milk Of Magnesia Liq) 30 ml Q12H PRN PO 09/13/17 02:30 09/19/17 18:48 (Senokot) 17.2 mg Q12H PRN PO 09/13/17 02:30 09/19/17 18:48 (Dulcolax Supp) 10 mg DAILY PRN RECTAL 09/13/17 02:30 (Lactulose Liq) 30 ml DAILY PRN PO 09/13/17 02:30 09/19/17 18:48 (CeleXA) 20 mg DAILY PO 09/13/17 09:00 09/23/17 08:11 (Lanoxin) 0.125 mg DAILY PO 09/13/17 09:00 09/23/17 08:11 (Cardizem) 90 mg QID PO 09/13/17 09:00 09/22/17 17:29 (Folate) 1 mg DAILY PO 09/13/17 09:00 09/23/17 08:11 (Robaxin) 500 mg TID PRN PO 09/13/17 02:30 09/21/17 12:19 (Lopressor) 25 mg Q8HR PO 09/13/17 06:00 09/22/17 13:29 (Theragran) 1 tab DAILY PO 09/13/17 09:00 09/23/17 08:10 (Protonix) 20 mg DAILY PO 09/13/17 09:00 09/23/17 08:11 (Vitamin B1) 100 mg DAILY PO 09/13/17 09:00 09/23/17 08:10 (Duoneb Neb) 1 ampule Q4HR NEB PRN NEB 09/13/17 03:00 (Xanax) 0.5 mg Q8H PRN PO 09/13/17 03:00 09/22/17 22:21 Daptomycin 650 mg/ Sodium Chloride 100 ml @ 200 mls/hr Q24H IV 09/13/17 18:00 09/22/17 18:15 (Zofran Inj) 4 mg Q6H PRN IV PUSH 09/17/17 20:30 ([place] 10-325 Mg) 1 tab Q4H PRN PO 09/17/17 20:45 09/18/17 13:26 (Morphine Inj) 2 mg Q3H PRN IV PUSH 09/17/17 20:45 09/21/17 21:43 (Morphine Inj) 4 mg Q3H PRN IV PUSH 09/17/17 20:45 09/22/17 02:00 (Narcan Inj) 0.4 mg UNSCH PRN IV PUSH 09/17/17 20:45 (Dilaudid) 4 mg Q4H PRN PO 09/22/17 00:45 09/23/17 08:11 Lines Line sites with no e.o infection Past Medical History reviewed (Sarai Larson) Allergies: Coded Allergies: No Known Allergies (Unverified Allergy, Unknown, 09/12/17) Objective . Vital Signs Date Time Temp Pulse Resp B/P (MAP) Pulse Ox O2 Delivery O2 Flow Rate FiO2 09/23/17 08:26 97.3 69 20 106/65 (79) 97 09/23/17 04:27 18 09/23/17 04:00 98.2 69 18 112/65 (81) 97 09/23/17 04:00 65 09/23/17 00:00 97.8 62 16 112/62 (79) 99 09/23/17 00:00 63 09/22/17 20:00 58 09/22/17 20:00 97.8 59 18 110/58 (75) 97 09/22/17 16:10 53 09/22/17 12:10 75 09/22/17 12:00 97.8 76 21 114/57 (76) 98 09/22/17 10:37 67 . Laboratory Tests Test 09/22/17 05:55 Total Creatine Kinase 36 U/L Laboratory Tests Test 09/21/17 07:01 09/22/17 05:55 White Blood Count 12.9 TH/MM3 Red Blood Count 3.57 MIL/MM3 Hemoglobin 10.7 GM/DL Hematocrit 31.4 % Mean Corpuscular Volume 88.0 FL Mean Corpuscular Hemoglobin 30.1 PG Mean Corpuscular Hemoglobin Concent 34.2 % Red Cell Distribution Width 14.5 % Platelet Count 416 TH/MM3 Mean Platelet Volume 7.4 FL Neutrophils (%) (Auto) 67.1 % Lymphocytes (%) (Auto) 18.2 % Monocytes (%) (Auto) 10.8 % Eosinophils (%) (Auto) 3.2 % Basophils (%) (Auto) 0.7 % Neutrophils # (Auto) 8.7 TH/MM3 Lymphocytes # (Auto) 2.3 TH/MM3 Monocytes # (Auto) 1.4 TH/MM3 Eosinophils # (Auto) 0.4 TH/MM3 Basophils # (Auto) 0.1 TH/MM3 CBC Comment AUTO DIFF Differential Comment AUTO DIFF CONFIRMED Platelet Estimate NORMAL Platelet Morphology Comment NORMAL Red Cell Morphology Comment NORMAL Blood Urea Nitrogen 11 MG/DL Creatinine 0.85 MG/DL Random Glucose 67 MG/DL Calcium Level 9.1 MG/DL Sodium Level 135 MEQ/L Potassium Level 3.8 MEQ/L Chloride Level 100 MEQ/L Carbon Dioxide Level 26.6 MEQ/L Anion Gap 8 MEQ/L Estimat Glomerular Filtration Rate 90 ML/MIN Total Creatine Kinase 36 U/L Imaging Last Impressions Abdomen/Pelvis CT 09/12/172114 Signed Impressions: Service Date/Time: Tuesday, September 12, 2017 22:42 - CONCLUSION: Progressive endplate and vertebral body destruction at the L2-L3 and L3-L4 levels with increased soft tissue density in the paraspinous regions and retroperitoneum with adenopathy all concerning for ongoing infection and discitis. The patient is scheduled for MRI examinations of the thoracic and lumbar spines. Giovanni Gomez MD Thoracic Spine MRI 09/12/17 Signed Impressions: Service Date/Time: Wednesday, September 13, 2017 00:02 - CONCLUSION: No significant interval change. No evidence of abscess in the thoracic spine region. Scott Morfin MD Lumbar Spine MRI 09/12/17 Signed Impressions: Service Date/Time: Wednesday, September 13, 2017 00:02 - CONCLUSION: Evidence of osteomyelitis/discitis of the lumbar spine again seen. The defined anterior epidural fluid collection/abscess at L2-3 has decreased in size. However the ill-defined circumferential epidural soft tissue enhancement has increased in severity and extent. This results in increased central canal stenosis, most severe at L2-3. Slight increase in size of left psoas abscess and new small right psoas abscess also noted. Scott Morfin MD Physical Exam GENERAL: This is a well-nourished, well-developed male patient, in no apparent distress. Awake and alert. Lying in hospital bed, appears comfortable. SKIN: Cool and dry. No generalized rash. HEAD: Atraumatic. Normocephalic. EYES: EOMI. Capac conjunctivae, no petechia or hemorrhage or injection. No scleral icterus. ENT: Nose without bleeding or purulent drainage. NECK: Trachea midline. CARDIOVASCULAR: Regular rate and rhythm without murmurs, gallops, or rubs. RESPIRATORY: Clear to auscultation. Breath sounds equal bilaterally. No wheezes , rales, or rhonchi. GASTROINTESTINAL: Abdomen soft, non-tender, nondistended. MUSCULOSKELETAL: Extremities without clubbing, cyanosis, or edema. No calf tenderness. Some tenderness to palpation illicited around lumbar incision sites. Lumbar incisions appear to be healing well, no drainage, edema or surrounding erythema. Left sided posterolateral incision healing well, steristrips in place. NEUROLOGICAL: Grossly nonfocal PSYCH: Calm and cooperative. Appropriate mood and affect. LINE: No evidence of infection (Sarai Larson) Assessment & Plan Remarks Discitis/osteomyelitis L2 - L4 with subsequent central canal stenosis most severe L2-3 - last surgery 09/17 s/p left T11 rib resection, L23 discitis/osteo debridement, evacuation of left bilateral psoas evacuation, L23 interbody fusion with PEEK cage and T11 rib autograft Psoas R muscle abscess Psoas L muscle abscess + MRSA Acute renal failure: prerenal, sepsis. Abnormal LFts: Hepatitis, sepsis. Hyperglycemia uncontrolled DM, sepsis related. Elevated CRP 21.90, ESR 44 Hx of MRSA bacteremia Hx of MRSA discitis Hx of MRSA left psoas abscess Hep C Hx of IVDU Atrial fibrillation Hx of renal failure while on Vancomycin Recs: Discontinue Cefepime Continue Daptomycin IV (ASP: failed Vanco, was on Dapto, may need further change based on cultures) Check CPK - last CPK 36 09/22 Follow cultures Monitor progress Further recommendations to follow (Sarai Larson) Remarks The exam, history, and the medical decision-making described in the above note were completed with the assistance of the mid-level provider. I reviewed and agree with the findings presented. I attest that I had a [id number] encounter with the patient on the same day, and personally performed and documented my assessment and findings in the medical record. Discussed with patient as well as case management that he will need IV daptomycin for an extended period of time possibly 8-10 weeks IV followed by oral suppression. Await input from case management as to whether the patient would be accepted to receive daptomycin IV at home, or an infusion center or will need placement in rehab Continue daptomycin IV for now (Felicia Del Real MD) Sarai Larson Sep 23, 2017 09:42 Felicia Del Real MD Sep 23, 2017 17:28
[2017-09-23 12:00] VITALS: BP 120/67; PULSE 80; RESP 20; TEMP 97.4; O2SAT 99
--- NOTE | 2017-09-23 15:23 | HHI.PR ---
Subjective Remarks Patient is doing PT session Denied acute complain He expressed his wish to go home and have antibiotic finished there Objective Vitals Vital Signs Date Time Temp Pulse Resp B/P (MAP) Pulse Ox O2 Delivery O2 Flow Rate FiO2 09/23/17 12:00 97.4 80 20 120/67 (84) 99 09/23/17 09:11 17 09/23/17 08:26 97.3 69 20 106/65 (79) 97 09/23/17 04:00 98.2 69 18 112/65 (81) 97 09/23/17 04:00 65 09/23/17 00:00 97.8 62 16 112/62 (79) 99 09/23/17 00:00 63 09/22/17 20:00 58 09/22/17 20:00 97.8 59 18 110/58 (75) 97 09/22/17 16:10 53 I/O 09/22/17 09/22/17 09/22/17 09/23/17 09/23/17 09/23/17 06:59 14:59 22:59 06:59 14:59 22:59 Intake Total 100 ml Output Total 500 ml 250 ml Balance -500 ml -150 ml IV Total 100 ml Output Urine Total 500 ml 250 ml # Voids 6 # Bowel Movements 1 Result Diagram: 09/21/17 0701 09/21/17 07 Objective Remarks GENERAL: This is a well-nourished, well-developed patient, in no apparent distress. CARDIOVASCULAR: RRR, no gallops, or rubs. RESPIRATORY: Fair air entry bilaterally. No W, R, or R GASTROINTESTINAL: Abdomen soft, non-tender, nondistended. Positive bowel sounds MUSCULOSKELETAL: Extremities without clubbing, cyanosis, or edema. Pedal pulses appreciated NEUROLOGICAL: Awake and alert. Moves all extremity. Normal speech.no focal neurological deficit, brace in place Procedures 09/17/17 1. Extreme lateral, trans-psoas approach with left T11 rib resection, debridement [id number]-osteomyelitis 2. Extreme lateral approach to bilateral psoas muscle abscess evacuation. 3. L2-3 interbody fusion with PEEK lateral cage, left T11 rib autograft 4. Bilateral L2-L4 posterior spinal instrumentation with percutaneous pedicle screw fixation. A/P Problem List: (1) Discitis of lumbar region ICD Code: M46.46 - Discitis, unspecified, lumbar region (2) Psoas abscess ICD Code: K68.12 - Psoas muscle abscess (3) Intractable pain ICD Code: R52 - Pain, unspecified (4) Renal insufficiency ICD Code: N28.9 - Disorder of kidney and ureter, unspecified (5) A-fib ICD Code: I48.91 - Unspecified atrial fibrillation (6) IVDU (intravenous drug user) ICD Code: F19.90 - Other psychoactive substance use, unspecified, uncomplicated Assessment and Plan 66-year-old man with 1. L-Spine Discitis/Osteomyelitis: Recurrent. Appreciate input from neurosurgery and s/p I&D 09/17/17 Continue with Cubicin and Cefepime pending final culture report per ID Pain management accordingly TLSO brace when out of bed PT to treat and eval 2. Psoas Abscess: Previous Left Psoas Abscess s/p CT-guided drainage, now increase in size w/ new small right psoas abscess.s/p bilateral psoas muscle abscess evacuation 09/17/17 by NSG. Continue with Cubicin and Cefepime pending final culture report 3. Intractable Pain: secondary to above, reports no relief w/ Tramadol, Continue PO/IV as needed 4. Renal Insufficiency: resolved 5. A. fib: continue home Digoxin, Metoprolol and Diltiazem. 6. IVDU: Denies recent use, last use May 2017 per patient, Ativan prn if needed. 7. DVT Prophylaxis: SCD/Teds Ethan Montalvo MD Sep 23, 2017 15:22
--- NOTE | 2017-09-23 16:44 | HHI.NSPN ---
(Onur [place]) History Chief Complaint: Mild low back pain (Onur [place]) Interval History 09/13: 66-year-old gentleman with a diagnosis of lumbar discitis with osteomyelitis and psoas abscesses was found to have MRSA wound after CT guided aspiration and blood cultures and treated with IV antibiotics from mid May to mid July and subsequently another month of oral antibiotics. He has been followed by Dr. Krause from neurosurgery and infectious disease on inpatient and outpatient setting. Complains of recurrent and worsening back pain with intermittent pain rating down to the right leg and thigh and calf with intermittent numbness. Denies any weakness or incontinence. It is placed on tramadol but states this is not helping control his pain and therefore was scheduled to see a pain specialist later next week as well as a follow-up MRI scan. His back pain worsened and he presented to the emergency room last evening and MRI scan of the thoracic and lumbar spine obtained reveals extensive L1-2, L2-3 and L3-4 discitis with osteomyelitis along with a moderate spinal stenosis from epidural abscess along with psoas abscesses. When compared to the MRI scan in June of the stenosis appears to have progressed especially at the L2-3 level. He has been receiving Percocet and morphine for pain and appears to be comfortable with this regimen. 09/14: No significant change in back pain overnight. No ongoing pain and weakness or numbness in the lower extremities today. No complaints of bowel or bladder dysfunction. He states that his pain in the back, worse last week, with intermittent pain radiating to the lower extremities with ambulation. No neck pain or upper extremity pain weakness or numbness. 09/15: The patient is awake and alert in bed visiting with a friend when seen. He says he has pain to the back with movement. He did say last night he had some numbness and tingling going into the right lower extremity down to the toes after he came out of the MRI. He had severe pain to the back secondary to having to lay flat for the MRI. At present he has no numbness or tingling to the lower extremities and minimal back pain. His neuro exam is unchanged from yesterday. 09/16: This morning the patient continues to do well. He has low back pain with movement. He says he feels he is getting weaker. He denies any pain, numbness or tingling to the extremities. Upon examination he does seem slightly weaker to the left lower extremity. 09/17: The patient went to the operating room for an extreme lateral, trans- psoas approach with left T11 rib resection for debridement of L2-3 discitis/ osteomyelitis with interbody fusion with PEEK lateral cage and bilateral L2-L4 posterior spinal instrumentation and pedicle screw fixation and left T11 rib autograft as well as an extreme lateral approach to evacuate a bilateral psoas muscle abscess. Post-operatively the patient returned to the med/surg floor for further care and monitoring. 09/18: When seen the patient is awake and visiting with a friend. He does say he has low back pain but denies any pain, numbness or tingling to the lower extremities. He states that they feel "pretty strong." Upon examination he had no pain or numbness to the lower extremities and his strength was good except he had mild weakness to the left hamstring. 09/19: c/o moderate at times severe left side rib pain. Otherwise reports neuro stable. 09/20: currently being cleaned due to bowel accident in bed. reports otherwise no changes today in his symptoms. 09/21: This afternoon the patient is awake and alert in bed watching TV. He does say that he has some low back pain as well as pain when taking a deep breath. He denies any headache or dizziness. He has no pain, numbness or tingling to the lower extremities. He is moving all extremities without any difficulty when seen. He does comment that he isn't certain if hydromorphone 2 mg will be sufficient to manage his pain but says he will see how it goes. 09/23: The patient is awake and alert watching TV. He has some low back pain but is able to turn on his side without any difficulty to have his back examined. He has no sensorimotor deficits to the lower extremities upon examination. (Onur Montana) Exam Results 09/21/17 09/21/17 09/22/17 09/22/17 09/23/17 09/23/17 06:00 18:00 06:00 18:00 06:00 18:00 Intake Total 100 ml 100 ml 100 ml Output Total 950 ml 300 ml 750 ml Balance -950 ml -200 ml 100 ml -750 ml 100 ml IV Total 100 ml 100 ml 100 ml Output Urine Total 950 ml 300 ml 750 ml # Voids 6 # Bowel Movements 1 Vital Signs Date Time Temp Pulse Resp B/P (MAP) Pulse Ox O2 Delivery O2 Flow Rate FiO2 09/23/17 12:00 97.4 80 20 120/67 (84) 99 09/23/17 09:11 17 09/23/17 08:26 97.3 69 20 106/65 (79) 97 09/23/17 04:00 98.2 69 18 112/65 (81) 97 09/23/17 04:00 65 09/23/17 00:00 97.8 62 16 112/62 (79) 99 09/23/17 00:00 63 09/22/17 20:00 58 09/22/17 20:00 97.8 59 18 110/58 (75) 97 09/22/17 16:10 53 09/22/17 12:10 75 09/22/17 12:00 97.8 76 21 114/57 (76) 98 09/22/17 10:37 67 09/22/17 08:00 97.8 73 18 118/68 (85) 97 09/22/17 02:09 18 09/22/17 00:00 70 09/21/17 22:16 18 09/21/17 20:00 70 09/21/17 20:00 97.7 71 18 120/67 (84) 95 09/21/17 16:56 98.6 80 18 126/74 (91) 97 09/21/17 13:15 73 09/21/17 12:00 98.0 79 22 133/77 (95) 97 09/21/17 08:05 77 09/21/17 07:50 97.8 78 18 139/80 (99) 97 09/21/17 07:00 70 09/21/17 05:21 98.0 65 18 148/75 (99) 97 09/21/17 01:11 98.2 54 18 115/62 (79) 97 09/21/17 01:10 115/62 (79) 09/20/17 20:39 98.3 70 18 146/75 (98) 97 ([place],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 Affect normal. Readily interacts. No apparent distress. HEENT: Normocephalic. Atraumatic. MUSCULOSKELETAL: MCKEON spontaneously & purposefully w/o any difficulty. No evident clubbing or deformity. Midline thoracolumbar spine minimally TTP at incision. Right lateral and left posterolateral surgical incisions minimally TTP. All dressings dry & intact w/o any shadowing. NEUORLOGICAL: AAOx3. Speech clear & appropriate. Follow commands w/o difficulty. Sensation intact to light touch to the lower extremities. Muscle strength 5/5 to all major flexion & extension muscle groups of the lower extremities. (Onur Montana) Lab, Micro, Other Results Laboratory Tests Test 09/21/17 07:01 09/22/17 05:55 White Blood Count 12.9 TH/MM3 Red Blood Count 3.57 MIL/MM3 Hemoglobin 10.7 GM/DL Hematocrit 31.4 % Mean Corpuscular Volume 88.0 FL Mean Corpuscular Hemoglobin 30.1 PG Mean Corpuscular Hemoglobin Concent 34.2 % Red Cell Distribution Width 14.5 % Platelet Count 416 TH/MM3 Mean Platelet Volume 7.4 FL Neutrophils (%) (Auto) 67.1 % Lymphocytes (%) (Auto) 18.2 % Monocytes (%) (Auto) 10.8 % Eosinophils (%) (Auto) 3.2 % Basophils (%) (Auto) 0.7 % Neutrophils # (Auto) 8.7 TH/MM3 Lymphocytes # (Auto) 2.3 TH/MM3 Monocytes # (Auto) 1.4 TH/MM3 Eosinophils # (Auto) 0.4 TH/MM3 Basophils # (Auto) 0.1 TH/MM3 CBC Comment AUTO DIFF Differential Comment AUTO DIFF CONFIRMED Platelet Estimate NORMAL Platelet Morphology Comment NORMAL Red Cell Morphology Comment NORMAL Blood Urea Nitrogen 11 MG/DL Creatinine 0.85 MG/DL Random Glucose 67 MG/DL Calcium Level 9.1 MG/DL Sodium Level 135 MEQ/L Potassium Level 3.8 MEQ/L Chloride Level 100 MEQ/L Carbon Dioxide Level 26.6 MEQ/L Anion Gap 8 MEQ/L Estimat Glomerular Filtration Rate 90 ML/MIN Total Creatine Kinase 36 U/L (Onur Montana) Medical Decision Making Impression and Plan Impression: 1. Lumbar discitis and osteomyelitis. His most recent MRI imaging and CT scan of the abdomen images are reviewed by the undersigned today. There appears to be healing of the L3 4 disc space with possible spontaneous fusion across this level. At the L1-L2 level, there is diminished epidural abscess component compared to his previous MRI. At the L2-L3 level, there is significant destruction of the vertebral endplates and vertebral body adjacent to the L2-3 disc space. Previous epidural abscess component is resolved at this level, but there is increased granulation tissue with moderately severe canal stenosis. Significant bilateral psoas muscle abscess persists with a fluid component bilaterally, somewhat worse compared to the previous MRI scan. Postoperative Diagnosis: (1) Septic discitis of lumbar region (2) Psoas abscess Lumbar discitis, residual at L2-L3 level Bilateral L2-3 level psoas muscle abscess Patient is doing well. He does have mild low back pain and rib pain but appears comfortable. He is able to turn onto his side w/o any difficulty or complaint of pain. No evident sensorimotor deficits to the lower extremities. Intermittent bradycardia yesterday. Wound culture positive for Staphylococcus aureus on final . POD #6 () s/p: 1. Extreme lateral, trans-psoas approach with left T11 rib resection, debridement [id number]-osteomyelitis 2. Extreme lateral approach to bilateral psoas muscle abscess evacuation. 3. L2-3 interbody fusion with PEEK lateral cage, left T11 rib autograft 4. Bilateral L2-L4 posterior spinal instrumentation with percutaneous pedicle screw fixation. Plan: Primary management per Hospitalist. Antibiotics per Infectious Disease. Neuro checks. TLSO brace when OOB. Mobilise patient w/assistance. Physical Therapy eval & tx. Patient is able to be discharged from Neurosurgery's perspective. (Onur Montana) Attending Statement The exam, history, and the medical decision-making described in the above note were completed with the assistance of the mid-level provider. I reviewed and agree with the findings presented. I attest that I had a [id number] encounter with the patient on the same day, and personally performed and documented my assessment and findings in the medical record. Postoperative pain continues to improve Much more comfortable today Sensory motor function remains intact lower extremities Dressing dry Continuing therapy Stable postop (José Antonio Krause MD) Onur Montana Sep 23, 2017 16:44 José Antonio Krause MD Sep 23, 2017 22:38
[2017-09-23 16:46] VITALS: BP 134/73; PULSE 76; RESP 20; TEMP 97.9; O2SAT 99
[2017-09-23] MEDS: DAPTOmycin INJ 650 MG in SODIUM CHLORIDE 0.9% INJ 100 ML IV SCH (19:00)
[2017-09-23 20:00] VITALS: BP 130/74; PULSE 65; PULSE 66; RESP 18; TEMP 98.9; O2SAT 98
[2017-09-23] MEDS: ALPRAZolam 0.5 MG TAB PO PRN (20:53)
[2017-09-24] VITALS (8 sets, daily range): BP systolic 108–124; BP diastolic 58–70; PULSE 46–61; RESP 18–20; TEMP 97.7–98.5; O2SAT 97–99
[2017-09-24] MEDS: HYDROmorphone HCL 2 MG TAB PO PRN ×6 (00:31→22:37)
[2017-09-24] MEDS: METOPROLOL TARTRATE 25 MG TAB PO SCH ×3 (06:41→21:38)
[2017-09-24] MEDS: MULTIVITAMIN TAB PO SCH (09:29)
[2017-09-24] MEDS: SODIUM CHLORIDE 0.9% FLUSH 10 ML FLUSH IV FLUSH SCH ×2 (09:30→21:37)
[2017-09-24] MEDS: THIAMINE HCL 100 MG TAB PO SCH (09:30)
[2017-09-24] MEDS: FOLIC ACID 1 MG TAB PO SCH (09:30)
[2017-09-24] MEDS: DIGOXIN 0.125 MG TAB PO SCH (09:30)
[2017-09-24] MEDS: DILTIAZEM HCL 90 MG TAB PO SCH ×4 (09:30→21:37)
[2017-09-24] MEDS: PANTOPRAZOLE SOD 20 MG DELAYED RELEASE TAB PO SCH (09:30)
[2017-09-24] MEDS: CITALOPRAM HYDROBROMIDE 20 MG TAB PO SCH (09:30)
[2017-09-24] MEDS: DOCUSATE SODIUM 50 MG/SENNA 8.6 MG TAB PO SCH ×2 (09:35→21:37)
[2017-09-24] MEDS ORDERED: OXYC1TAB63 PO (16:50)
[2017-09-24] MEDS: DAPTOmycin INJ 650 MG in SODIUM CHLORIDE 0.9% INJ 100 ML IV SCH (18:23)
--- NOTE | 2017-09-24 18:30 | HHI.PR ---
Subjective Remarks Resting comfortably in bed No event overnight Denied chest and or short of breath No fever or chills Objective Vitals Vital Signs Date Time Temp Pulse Resp B/P (MAP) Pulse Ox O2 Delivery O2 Flow Rate FiO2 09/24/17 16:22 97.8 51 18 118/67 (84) 99 09/24/17 11:44 97.7 59 18 121/69 (86) 97 09/24/17 08:00 50 09/24/17 07:44 97.8 56 18 124/70 (88) 99 09/24/17 06:26 97.7 48 18 108/58 (75) 98 09/24/17 04:00 46 09/24/17 00:00 61 09/24/17 00:00 98.5 61 20 122/68 (86) 98 09/23/17 20:00 66 09/23/17 20:00 98.9 65 18 130/74 (92) 98 I/O 09/23/17 09/23/17 09/23/17 09/24/17 09/24/17 09/24/17 07:00 15:00 23:00 07:00 15:00 23:00 Intake Total 480 ml 340 ml 600 ml Output Total 400 ml 400 ml Balance 80 ml 340 ml 200 ml Intake Oral 480 ml 240 ml 600 ml IV Total 100 ml Output Urine Total 400 ml 400 ml # Voids 2 # Bowel Movements 1 Result Diagram: 09/21/1770009/21/17700 Objective Remarks GENERAL: This is a well-nourished, well-developed patient, in no apparent distress. CARDIOVASCULAR: RRR, no gallops, or rubs. RESPIRATORY: Fair air entry bilaterally. No W, R, or R GASTROINTESTINAL: Abdomen soft, non-tender, nondistended. Positive bowel sounds MUSCULOSKELETAL: Extremities without clubbing, cyanosis, or edema. Pedal pulses appreciated NEUROLOGICAL: Awake and alert. Moves all extremity. Normal speech.no focal neurological deficit, brace in place Procedures 09/17/17 1. Extreme lateral, trans-psoas approach with left T11 rib resection, debridement [id number]-hrgutiod-osteomyelitis 2. Extreme lateral approach to bilateral psoas muscle abscess evacuation. 3. L2-3 interbody fusion with PEEK lateral cage, left T11 rib autograft 4. Bilateral L2-L4 posterior spinal instrumentation with percutaneous pedicle screw fixation. A/P Problem List: (1) Discitis of lumbar region ICD Code: M46.46 - Discitis, unspecified, lumbar region (2) Psoas abscess ICD Code: K68.12 - Psoas muscle abscess (3) Intractable pain ICD Code: R52 - Pain, unspecified (4) Renal insufficiency ICD Code: N28.9 - Disorder of kidney and ureter, unspecified (5) A-fib ICD Code: I48.91 - Unspecified atrial fibrillation (6) IVDU (intravenous drug user) ICD Code: F19.90 - Other psychoactive substance use, unspecified, uncomplicated Assessment and Plan 66-year-old man with 09/24: Continue current antibiotic per ID recommendation, discussed with vocational case manager regarding transfer to rehab when bed is available, also discussed with ID regarding post discharge antibiotic plan A/P: 1. L-Spine Discitis/Osteomyelitis: Recurrent. Appreciate input from neurosurgery and s/p I&D 09/17/17 Continue with Cubicin and Cefepime pending final culture report per ID Pain management accordingly TLSO brace when out of bed PT to treat and eval 2. Psoas Abscess: Previous Left Psoas Abscess s/p CT-guided drainage, now increase in size w/ new small right psoas abscess.s/p bilateral psoas muscle abscess evacuation 09/17/17 by NSG. Continue with Cubicin and Cefepime pending final culture report 3. Intractable Pain: secondary to above, reports no relief w/ Tramadol, Continue PO/IV as needed 4. Renal Insufficiency: resolved 5. A. fib: continue home Digoxin, Metoprolol and Diltiazem. 6. IVDU: Denies recent use, last use May 2017 per patient, Ativan prn if needed. 7. DVT Prophylaxis: SCD/Teds Ethan Montalvo MD Sep 24, 2017 18:29
[2017-09-25] VITALS (11 sets, daily range): BP systolic 113–130; BP diastolic 60–77; PULSE 51–75; RESP 18–20; TEMP 97.5–98.9; O2SAT 97–99
[2017-09-25] MEDS: HYDROmorphone HCL 2 MG TAB PO PRN ×5 (04:34→20:54)
[2017-09-25] MEDS: METOPROLOL TARTRATE 25 MG TAB PO SCH ×3 (05:21→20:53)
[2017-09-25] MEDS: MULTIVITAMIN TAB PO SCH (08:29)
[2017-09-25] MEDS: CITALOPRAM HYDROBROMIDE 20 MG TAB PO SCH (08:29)
[2017-09-25] MEDS: THIAMINE HCL 100 MG TAB PO SCH (08:29)
[2017-09-25] MEDS: SODIUM CHLORIDE 0.9% FLUSH 10 ML FLUSH IV FLUSH SCH ×2 (08:29→20:53)
[2017-09-25] MEDS: FOLIC ACID 1 MG TAB PO SCH (08:29)
[2017-09-25] MEDS: DOCUSATE SODIUM 50 MG/SENNA 8.6 MG TAB PO SCH ×2 (08:29→20:53)
[2017-09-25] MEDS: PANTOPRAZOLE SOD 20 MG DELAYED RELEASE TAB PO SCH (08:30)
[2017-09-25] MEDS: DIGOXIN 0.125 MG TAB PO SCH (08:32)
[2017-09-25] MEDS: DILTIAZEM HCL 90 MG TAB PO SCH ×4 (08:32→20:53)
[2017-09-25] MEDS ORDERED: EPIN1INJ21 SQ (15:11)
[2017-09-25] MEDS ORDERED: DAPT500P IV (15:11)
[2017-09-25] MEDS ORDERED: SOLU250I IV PUSH (15:11)
[2017-09-25] MEDS ORDERED: EPIN1INJ21 IV PUSH (15:11)
--- NOTE | 2017-09-25 15:14 | HHI.FF ---
cc: Kiki Snyder MD Infusion Therapy Location of Infusion Therapy: [facility] Infusion Therapy Order Patient Information Appointment Date: Sep 25, 2017 Patient Weight 62.9 kg Diagnosis: Coded Allergies: No Known Allergies (Unverified Allergy, Unknown, 09/12/17) Administer Medication Daptomycin 650 mg IV every 24 hours Start Treatment: Sep 25, 2017 Stop Treatment: November 05, 2017 Additional Information Venous access: PICC Line Additional Instructions [x] Peripheral flush and dressing changes per protocol [x] Implanted port and central linen clerk: * Implanted port: 10 ml Normal Saline followed by 5 ml Heparin 100 units/ml Heparin flush after each use and monthly to maintain. [] May leave port accessed during therapy. [] May leave peripheral site accessed for duration of therapy. [x] If patient has SOB or respiratory distress, check oxygen saturation. If less than 90% or clinical signs of respiratory distress, administer oxygen at 2 L/min. via nasal cannula and notify physician. [x] Anaphylaxis/Reaction orders: * Stop infusion. * Keep IV line open with saline flush. * Notify physician. * Monitor vital signs every 15 minutes until symptoms resolve. * Check Oxygen saturation; Oxygen at 2 L/min. via nasal cannula if less than 90% or clinical signs of respiratory distress. * Administer diphenhydramine (Benadryl) 25 mg IV STAT, (unless patient has received as pre-med). May repeat once, if necessary. * Solu-Cortef 250 mg IVP over 30-60 seconds, use 100 mg vials for each dissolution. * Epinephrine (1mg/1 ml) 0.3 mg subcutaneously or IVP now with any signs of respiratory distress. * Check with physician for new additional pre-med orders if patient is re- challenged or re-treated. [x] May remove PICC line when treatment complete, after confirming with Physician. [x] If the patient is admitted to the hospital, the ED, or transferred via [facility] , complete transfer form including medication reconciliation order sheet. Laboratory Tests Weekly Labs: CBC w/diff, Creatinine, CRP, LFT's (Hepatic function test), Serum CK Levels Additional Information Please draw weekly labs, fax to Dr.Reba Snyder office. Please call with abnormals , change in clinical condition or problems to: Dr.Reba Snyder or or covering ID Physician Follow up appt: Patient or alf to schedule follow up appt with Dr.Reba Snyder within 2 weeks post discharge. Follow up with PCP Follow up with other MDs as planned. Counseling: Counseled about medication side effects Counseled about PICC line care and hand hygiene. Felicia Del Real MD Sep 25, 2017 15:14
[2017-09-25] MEDS: DAPTOmycin INJ 650 MG in SODIUM CHLORIDE 0.9% INJ 100 ML IV SCH (16:36)
--- NOTE | 2017-09-25 19:41 | HHI.PR ---
Subjective Remarks Resting comfortably in bed No acute overnight issue Objective Vitals Vital Signs Date Time Temp Pulse Resp B/P (MAP) Pulse Ox O2 Delivery O2 Flow Rate FiO2 09/25/17 16:00 51 09/25/17 15:53 98.1 53 20 119/63 (81) 97 09/25/17 12:47 97.5 64 20 116/60 (78) 99 09/25/17 12:27 58 09/25/17 09:18 53 09/25/17 08:25 62 09/25/17 05:00 98.9 75 18 130/77 (94) 97 09/25/17 04:00 57 09/25/17 00:00 59 09/25/17 00:00 98.3 60 18 130/75 (93) 99 09/24/17 20:00 55 09/24/17 20:00 98.1 55 18 118/66 (83) 98 I/O 09/24/17 09/24/17 09/24/17 09/25/17 09/25/17 09/25/17 07:00 15:00 23:00 07:00 15:00 23:00 Intake Total 600 ml 820 ml Output Total 400 ml 500 ml Balance 200 ml -500 ml 820 ml Intake Oral 600 ml 720 ml IV Total 100 ml Output Urine Total 400 ml 500 ml # Voids 2 2 3 # Bowel Movements 1 Result Diagram: 09/21/1770009/21/17 07 Objective Remarks GENERAL: This is a well-nourished, well-developed patient, in no apparent distress. CARDIOVASCULAR: RRR, no gallops, or rubs. RESPIRATORY: Fair air entry bilaterally. No W, R, or R GASTROINTESTINAL: Abdomen soft, non-tender, nondistended. Positive bowel sounds MUSCULOSKELETAL: Extremities without clubbing, cyanosis, or edema. Pedal pulses appreciated NEUROLOGICAL: Awake and alert. Moves all extremity. Normal speech.no focal neurological deficit, brace in place Procedures 09/17/17 1. Extreme lateral, trans-psoas approach with left T11 rib resection, debridement X6-4-wiwboqmc-osteomyelitis 2. Extreme lateral approach to bilateral psoas muscle abscess evacuation. 3. L2-3 interbody fusion with PEEK lateral cage, left T11 rib autograft 4. Bilateral L2-L4 posterior spinal instrumentation with percutaneous pedicle screw fixation. A/P Problem List: (1) Discitis of lumbar region ICD Code: M46.46 - Discitis, unspecified, lumbar region (2) Psoas abscess ICD Code: K68.12 - Psoas muscle abscess (3) Intractable pain ICD Code: R52 - Pain, unspecified (4) Renal insufficiency ICD Code: N28.9 - Disorder of kidney and ureter, unspecified (5) A-fib ICD Code: I48.91 - Unspecified atrial fibrillation (6) IVDU (intravenous drug user) ICD Code: F19.90 - Other psychoactive substance use, unspecified, uncomplicated Assessment and Plan 66-year-old man with 09/25: No acute issue awaiting acceptance from a rehab to be transferred on IV antibiotic, ID will place order for post discharge IV antibiotic 1. L-Spine Discitis/Osteomyelitis: Recurrent. Appreciate input from neurosurgery and s/p I&D 09/17/17 Continue with Cubicin and Cefepime pending final culture report per ID Pain management accordingly TLSO brace when out of bed PT to treat and eval 2. Psoas Abscess: Previous Left Psoas Abscess s/p CT-guided drainage, now increase in size w/ new small right psoas abscess.s/p bilateral psoas muscle abscess evacuation 09/17/17 by NSG. Continue with Cubicin and Cefepime pending final culture report 3. Intractable Pain: secondary to above, reports no relief w/ Tramadol, Continue PO/IV as needed 4. Renal Insufficiency: resolved 5. A. fib: continue home Digoxin, Metoprolol and Diltiazem. 6. IVDU: Denies recent use, last use May 2017 per patient, Ativan prn if needed. 7. DVT Prophylaxis: SCD/Teds Ethan Montalvo MD Sep 25, 2017 19:41
--- NOTE | 2017-09-25 20:29 | HHI.PR ---
Addendum to Inpatient Note Addendum Reason: Additional Documentation Additional Information Post hospital infusion orders in chart. recycling manager informing the patient will go to a rehab facility. We will sign off please call back if any change in clinical condition or questions. Felicia Del Real MD Sep 25, 2017 20:29
[2017-09-25] MEDS: ALPRAZolam 0.5 MG TAB PO PRN (21:43)
[2017-09-26] VITALS (9 sets, daily range): BP systolic 107–130; BP diastolic 56–69; PULSE 48–77; RESP 17–20; TEMP 97.3–98.7; O2SAT 96–99
[2017-09-26] MEDS: HYDROmorphone HCL 2 MG TAB PO PRN ×4 (01:32→20:30)
[2017-09-26] MEDS: METOPROLOL TARTRATE 25 MG TAB PO SCH ×3 (06:17→20:32)
[2017-09-26] MEDS: DILTIAZEM HCL 90 MG TAB PO SCH ×4 (09:49→20:31)
[2017-09-26] MEDS: DIGOXIN 0.125 MG TAB PO SCH (09:49)
[2017-09-26] MEDS: MULTIVITAMIN TAB PO SCH (09:49)
[2017-09-26] MEDS: PANTOPRAZOLE SOD 20 MG DELAYED RELEASE TAB PO SCH (09:49)
[2017-09-26] MEDS: THIAMINE HCL 100 MG TAB PO SCH (09:49)
[2017-09-26] MEDS: CITALOPRAM HYDROBROMIDE 20 MG TAB PO SCH (09:49)
[2017-09-26] MEDS: FOLIC ACID 1 MG TAB PO SCH (09:49)
[2017-09-26] MEDS: DOCUSATE SODIUM 50 MG/SENNA 8.6 MG TAB PO SCH ×2 (09:50→20:30)
[2017-09-26] MEDS: SODIUM CHLORIDE 0.9% FLUSH 10 ML FLUSH IV FLUSH SCH ×2 (09:50→20:31)
--- NOTE | 2017-09-26 18:15 | HHI.PR ---
Subjective Remarks Resting comfortably in bed No event overnight Denied chest and or short of breath No fever or chills Objective Vitals Vital Signs Date Time Temp Pulse Resp B/P (MAP) Pulse Ox O2 Delivery O2 Flow Rate FiO2 09/26/17 16:06 97.8 48 20 123/61 (81) 99 09/26/17 12:30 61 09/26/17 11:28 97.6 68 20 130/65 (86) 98 09/26/17 08:26 97.3 63 20 115/63 (80) 97 09/26/17 08:00 63 09/26/17 05:00 97.5 61 18 117/56 (76) 99 09/26/17 00:37 98.7 77 18 130/69 (89) 96 09/25/17 20:00 97.7 63 18 113/66 (82) 97 09/25/17 19:48 65 I/O 09/25/17 09/25/17 09/25/17 09/26/17 09/26/17 09/26/17 07:00 15:00 23:00 07:00 15:00 23:00 Intake Total 820 ml 600 ml Output Total 500 ml Balance -500 ml 820 ml 600 ml Intake Oral 720 ml 600 ml IV Total 100 ml Output Urine Total 500 ml # Voids 2 3 3 3 2 # Bowel Movements 1 Objective Remarks GENERAL: This is a well-nourished, well-developed patient, in no apparent distress. CARDIOVASCULAR: RRR, no gallops, or rubs. RESPIRATORY: Fair air entry bilaterally. No W, R, or R GASTROINTESTINAL: Abdomen soft, non-tender, nondistended. Positive bowel sounds MUSCULOSKELETAL: Extremities without clubbing, cyanosis, or edema. Pedal pulses appreciated NEUROLOGICAL: Awake and alert. Moves all extremity. Normal speech.no focal neurological deficit, brace in place Procedures 09/17/17 1. Extreme lateral, trans-psoas approach with left T11 rib resection, debridement R5-9-lhokzzav-osteomyelitis 2. Extreme lateral approach to bilateral psoas muscle abscess evacuation. 3. L2-3 interbody fusion with PEEK lateral cage, left T11 rib autograft 4. Bilateral L2-L4 posterior spinal instrumentation with percutaneous pedicle screw fixation. A/P Problem List: (1) Discitis of lumbar region ICD Code: M46.46 - Discitis, unspecified, lumbar region (2) Psoas abscess ICD Code: K68.12 - Psoas muscle abscess (3) Intractable pain ICD Code: R52 - Pain, unspecified (4) Renal insufficiency ICD Code: N28.9 - Disorder of kidney and ureter, unspecified (5) A-fib ICD Code: I48.91 - Unspecified atrial fibrillation (6) IVDU (intravenous drug user) ICD Code: F19.90 - Other psychoactive substance use, unspecified, uncomplicated Assessment and Plan 66-year-old man with 09/25: No acute issue awaiting acceptance from a rehab to be transferred on IV antibiotic, ID will place order for post discharge IV antibiotic 09/26: ID sign off, IV antibiotic as recommended, awaiting accepting facility for rehab to take patient with IV antibiotic 1. L-Spine Discitis/Osteomyelitis: Recurrent. Appreciate input from neurosurgery and s/p I&D 09/17/17 Continue with Cubicin and Cefepime pending final culture report per ID Pain management accordingly TLSO brace when out of bed PT to treat and eval 2. Psoas Abscess: Previous Left Psoas Abscess s/p CT-guided drainage, now increase in size w/ new small right psoas abscess.s/p bilateral psoas muscle abscess evacuation 09/17/17 by NSG. Continue with Cubicin and Cefepime pending final culture report 3. Intractable Pain: secondary to above, reports no relief w/ Tramadol, Continue PO/IV as needed 4. Renal Insufficiency: resolved 5. A. fib: continue home Digoxin, Metoprolol and Diltiazem. 6. IVDU: Denies recent use, last use May 2017 per patient, Ativan prn if needed. 7. DVT Prophylaxis: SCD/Teds Ethan Montalvo MD Sep 26, 2017 18:15
[2017-09-26] MEDS: DAPTOmycin INJ 650 MG in SODIUM CHLORIDE 0.9% INJ 100 ML IV SCH (18:51)
[2017-09-26] MEDS: METHOCARBAMOL 500 MG TAB PO PRN (18:51)
[2017-09-26] MEDS: ALPRAZolam 0.5 MG TAB PO PRN (22:44)
[2017-09-27] VITALS (7 sets, daily range): BP systolic 111–163; BP diastolic 57–74; PULSE 51–67; RESP 16–20; TEMP 97.7–98.2; O2SAT 96–99
[2017-09-27] MEDS: HYDROmorphone HCL 2 MG TAB PO PRN ×5 (04:47→22:35)
[2017-09-27] MEDS: METOPROLOL TARTRATE 25 MG TAB PO SCH ×3 (05:19→20:52)
[2017-09-27] MEDS: MULTIVITAMIN TAB PO SCH (09:54)
[2017-09-27] MEDS: FOLIC ACID 1 MG TAB PO SCH (09:54)
[2017-09-27] MEDS: DIGOXIN 0.125 MG TAB PO SCH (09:55)
[2017-09-27] MEDS: DOCUSATE SODIUM 50 MG/SENNA 8.6 MG TAB PO SCH ×2 (09:55→20:51)
[2017-09-27] MEDS: PANTOPRAZOLE SOD 20 MG DELAYED RELEASE TAB PO SCH (09:55)
[2017-09-27] MEDS: THIAMINE HCL 100 MG TAB PO SCH (09:55)
[2017-09-27] MEDS: CITALOPRAM HYDROBROMIDE 20 MG TAB PO SCH (09:55)
[2017-09-27] MEDS: DILTIAZEM HCL 90 MG TAB PO SCH ×4 (09:55→20:51)
[2017-09-27] MEDS: SODIUM CHLORIDE 0.9% FLUSH 10 ML FLUSH IV FLUSH SCH ×2 (09:56→20:51)
--- NOTE | 2017-09-27 14:09 | HHI.PR ---
Subjective Remarks Resting comfortably in bed no acute issue no fever or chills awaiting placement Objective Vitals Vital Signs Date Time Temp Pulse Resp B/P (MAP) Pulse Ox O2 Delivery O2 Flow Rate FiO2 09/27/17 11:34 97.9 67 20 130/71 (90) 99 09/27/17 09:43 97.8 67 20 121/63 (82) 97 09/27/17 04:44 98.0 64 20 117/68 (84) 96 09/27/17 01:15 98.1 59 19 163/74 (103) 96 09/26/17 21:45 97.8 57 17 107/59 (75) 98 09/26/17 19:47 55 09/26/17 16:06 97.8 48 20 123/61 (81) 99 I/O 09/26/17 09/26/17 09/26/17 09/27/17 09/27/17 09/27/17 07:00 15:00 23:00 07:00 15:00 23:00 Intake Total 1500 ml 500 ml Output Total 300 ml Balance 1200 ml 500 ml Intake Oral 1500 ml 500 ml Output Urine Total 300 ml # Voids 3 3 2 3 1 # Bowel Movements 1 0 0 1 Objective Remarks GENERAL: This is a well-nourished, well-developed patient, in no apparent distress. CARDIOVASCULAR: RRR, no gallops, or rubs. RESPIRATORY: Fair air entry bilaterally. No W, R, or R GASTROINTESTINAL: Abdomen soft, non-tender, nondistended. Positive bowel sounds MUSCULOSKELETAL: Extremities without clubbing, cyanosis, or edema. Pedal pulses appreciated NEUROLOGICAL: Awake and alert. Moves all extremity. Normal speech.no focal neurological deficit, brace in place Procedures 09/17/17 1. Extreme lateral, trans-psoas approach with left T11 rib resection, debridement [id number]-osteomyelitis 2. Extreme lateral approach to bilateral psoas muscle abscess evacuation. 3. L2-3 interbody fusion with PEEK lateral cage, left T11 rib autograft 4. Bilateral L2-L4 posterior spinal instrumentation with percutaneous pedicle screw fixation. A/P Problem List: (1) Discitis of lumbar region ICD Code: M46.46 - Discitis, unspecified, lumbar region (2) Psoas abscess ICD Code: K68.12 - Psoas muscle abscess (3) Intractable pain ICD Code: R52 - Pain, unspecified (4) Renal insufficiency ICD Code: N28.9 - Disorder of kidney and ureter, unspecified (5) A-fib ICD Code: I48.91 - Unspecified atrial fibrillation (6) IVDU (intravenous drug user) ICD Code: F19.90 - Other psychoactive substance use, unspecified, uncomplicated Assessment and Plan 66-year-old man with 09/27: Continue IV antibiotic, ID placed therapy post discharge antibiotic referral, awaiting accepting facility 1. L-Spine Discitis/Osteomyelitis: Recurrent. Appreciate input from neurosurgery and s/p I&D 09/17/17 Continue with Cubicin and Cefepime pending final culture report per ID Pain management accordingly TLSO brace when out of bed PT to treat and eval 2. Psoas Abscess: Previous Left Psoas Abscess s/p CT-guided drainage, now increase in size w/ new small right psoas abscess.s/p bilateral psoas muscle abscess evacuation 09/17/17 by NSG. Continue with Cubicin and Cefepime pending final culture report 3. Intractable Pain: secondary to above, reports no relief w/ Tramadol, Continue PO/IV as needed 4. Renal Insufficiency: resolved 5. A. fib: continue home Digoxin, Metoprolol and Diltiazem. 6. IVDU: Denies recent use, last use May 2017 per patient, Ativan prn if needed. 7. DVT Prophylaxis: SCD/Ethan Coleman MD Sep 27, 2017 14:09
[2017-09-27] MEDS: DAPTOmycin INJ 650 MG in SODIUM CHLORIDE 0.9% INJ 100 ML IV SCH (18:28)
[2017-09-28] VITALS (7 sets, daily range): BP systolic 84–154; BP diastolic 49–69; PULSE 41–72; RESP 16–21; TEMP 97.7–98; O2SAT 96–100
[2017-09-28] MEDS: METOPROLOL TARTRATE 25 MG TAB PO SCH ×3 (06:07→21:23)
[2017-09-28] MEDS: HYDROmorphone HCL 2 MG TAB PO PRN ×4 (06:09→21:24)
[2017-09-28] MEDS: CITALOPRAM HYDROBROMIDE 20 MG TAB PO SCH (09:00)
[2017-09-28] MEDS: DILTIAZEM HCL 90 MG TAB PO SCH ×4 (09:07→21:22)
[2017-09-28] MEDS: DOCUSATE SODIUM 50 MG/SENNA 8.6 MG TAB PO SCH ×2 (09:07→21:23)
[2017-09-28] MEDS: THIAMINE HCL 100 MG TAB PO SCH (09:07)
[2017-09-28] MEDS: DIGOXIN 0.125 MG TAB PO SCH (09:07)
[2017-09-28] MEDS: MULTIVITAMIN TAB PO SCH (09:07)
[2017-09-28] MEDS: PANTOPRAZOLE SOD 20 MG DELAYED RELEASE TAB PO SCH (09:07)
[2017-09-28] MEDS: FOLIC ACID 1 MG TAB PO SCH (09:08)
[2017-09-28] MEDS: SODIUM CHLORIDE 0.9% FLUSH 10 ML FLUSH IV FLUSH SCH ×2 (09:08→21:22)
--- NOTE | 2017-09-28 11:58 | HHI.NSPN ---
(Onur Montana) History Chief Complaint: Left side rib pain is much better. (Onur Montana) Interval History 09/13: 66-year-old gentleman with a diagnosis of lumbar discitis with osteomyelitis and psoas abscesses was found to have MRSA wound after CT guided aspiration and blood cultures and treated with IV antibiotics from mid May to mid July and subsequently another month of oral antibiotics. He has been followed by Dr. Krause from neurosurgery and infectious disease on inpatient and outpatient setting. Complains of recurrent and worsening back pain with intermittent pain rating down to the right leg and thigh and calf with intermittent numbness. Denies any weakness or incontinence. It is placed on tramadol but states this is not helping control his pain and therefore was scheduled to see a pain specialist later next week as well as a follow-up MRI scan. His back pain worsened and he presented to the emergency room last evening and MRI scan of the thoracic and lumbar spine obtained reveals extensive L1-2, L2-3 and L3-4 discitis with osteomyelitis along with a moderate spinal stenosis from epidural abscess along with psoas abscesses. When compared to the MRI scan in June of the stenosis appears to have progressed especially at the L2-3 level. He has been receiving Percocet and morphine for pain and appears to be comfortable with this regimen. 09/14: No significant change in back pain overnight. No ongoing pain and weakness or numbness in the lower extremities today. No complaints of bowel or bladder dysfunction. He states that his pain in the back, worse last week, with intermittent pain radiating to the lower extremities with ambulation. No neck pain or upper extremity pain weakness or numbness. 09/15: The patient is awake and alert in bed visiting with a friend when seen. He says he has pain to the back with movement. He did say last night he had some numbness and tingling going into the right lower extremity down to the toes after he came out of the MRI. He had severe pain to the back secondary to having to lay flat for the MRI. At present he has no numbness or tingling to the lower extremities and minimal back pain. His neuro exam is unchanged from yesterday. 09/16: This morning the patient continues to do well. He has low back pain with movement. He says he feels he is getting weaker. He denies any pain, numbness or tingling to the extremities. Upon examination he does seem slightly weaker to the left lower extremity. 09/17: The patient went to the operating room for an extreme lateral, trans- psoas approach with left T11 rib resection for debridement of L2-3 discitis/ osteomyelitis with interbody fusion with PEEK lateral cage and bilateral L2-L4 posterior spinal instrumentation and pedicle screw fixation and left T11 rib autograft as well as an extreme lateral approach to evacuate a bilateral psoas muscle abscess. Post-operatively the patient returned to the med/surg floor for further care and monitoring. 09/18: When seen the patient is awake and visiting with a friend. He does say he has low back pain but denies any pain, numbness or tingling to the lower extremities. He states that they feel "pretty strong." Upon examination he had no pain or numbness to the lower extremities and his strength was good except he had mild weakness to the left hamstring. 09/19: c/o moderate at times severe left side rib pain. Otherwise reports neuro stable. 09/20: currently being cleaned due to bowel accident in bed. reports otherwise no changes today in his symptoms. 09/21: This afternoon the patient is awake and alert in bed watching TV. He does say that he has some low back pain as well as pain when taking a deep breath. He denies any headache or dizziness. He has no pain, numbness or tingling to the lower extremities. He is moving all extremities without any difficulty when seen. He does comment that he isn't certain if hydromorphone 2 mg will be sufficient to manage his pain but says he will see how it goes. 09/23: The patient is awake and alert watching TV. He has some low back pain but is able to turn on his side without any difficulty to have his back examined. He has no sensorimotor deficits to the lower extremities upon examination. 09/28: When seen the patient is awake and alert watching TV. He reports that the left side rib pain is much better. He had no other complaints and says his back is doing good. He denies any pain, numbness or tingling to the lower extremities. He has no sensorimotor deficits to the lower extremities. The surgical wounds are healing without any complication. The patient does state that he is to be discharged soon. (Onur Montana) Exam Results 09/26/17 09/26/17 09/27/17 09/27/17 09/28/17 09/28/17 06:00 18:00 06:00 18:00 06:00 18:00 Intake Total 600 ml 1400 ml 600 ml Output Total 300 ml Balance 600 ml 1100 ml 600 ml Intake Oral 600 ml 1400 ml 600 ml Output Urine Total 300 ml # Voids 2 6 3 4 # Bowel Movements 1 0 2 Vital Signs Date Time Temp Pulse Resp B/P (MAP) Pulse Ox O2 Delivery O2 Flow Rate FiO2 09/28/17 08:00 97.7 65 18 116/61 (79) 97 09/28/17 04:00 97.8 72 16 154/69 (97) 96 09/28/17 00:00 97.7 59 16 107/62 (77) 97 09/27/17 20:00 97.7 57 16 112/59 (76) 99 09/27/17 19:50 57 09/27/17 15:42 98.2 51 20 111/57 (75) 97 09/27/17 11:34 97.9 67 20 130/71 (90) 99 09/27/17 09:43 97.8 67 20 121/63 (82) 97 09/27/17 04:44 98.0 64 20 117/68 (84) 96 09/27/17 01:15 98.1 59 19 163/74 (103) 96 09/26/17 21:45 97.8 57 17 107/59 (75) 98 09/26/17 19:47 55 09/26/17 16:06 97.8 48 20 123/61 (81) 99 09/26/17 12:30 61 09/26/17 11:28 97.6 68 20 130/65 (86) 98 09/26/17 08:26 97.3 63 20 115/63 (80) 97 09/26/17 08:00 63 09/26/17 05:00 97.5 61 18 117/56 (76) 99 09/26/17 00:37 98.7 77 18 130/69 (89) 96 09/25/17 20:00 97.7 63 18 113/66 (82) 97 09/25/17 19:48 65 09/25/17 16:00 51 09/25/17 15:53 98.1 53 20 119/63 (81) 97 09/25/17 12:47 97.5 64 20 116/60 (78) 99 09/25/17 12:27 58 (Onur Montana) Physical Examination GENERAL: Awake & alert in bed watching TV. Affect normal. Readily interacts. No apparent distress. HEENT: Normocephalic. Atraumatic. MUSCULOSKELETAL: MCKEON spontaneously & purposefully w/o any difficulty. No evident clubbing or deformity. Midline thoracolumbar spine NTTP. The left posterolateral, both superior lateral lumbar and the left inferior lateral lumbar surgical incisions are NTTP, the right inferior lateral lumbar incision is minimally tender. All incisions are well approximated w/intact steri-strips w /dried blood under them, no erythema, streaking or active drainage noted from any incision. NEUORLOGICAL: AAOx3. Speech clear & appropriate. Follow commands w/o difficulty. Sensation intact to light touch to the lower extremities. Muscle strength 5/5 to all major flexion & extension muscle groups of the lower extremities. (Onur Montana) Medical Decision Making Impression and Plan Impression: 1. Lumbar discitis and osteomyelitis. His most recent MRI imaging and CT scan of the abdomen images are reviewed by the undersigned today. There appears to be healing of the L3 4 disc space with possible spontaneous fusion across this level. At the L1-L2 level, there is diminished epidural abscess component compared to his previous MRI. At the L2-L3 level, there is significant destruction of the vertebral endplates and vertebral body adjacent to the L2-3 disc space. Previous epidural abscess component is resolved at this level, but there is increased granulation tissue with moderately severe canal stenosis. Significant bilateral psoas muscle abscess persists with a fluid component bilaterally, somewhat worse compared to the previous MRI scan. Postoperative Diagnosis: (1) Septic discitis of lumbar region (2) Psoas abscess Lumbar discitis, residual at L2-L3 level Bilateral L2-3 level psoas muscle abscess Patient continues to do well. No complaints of back pain and says the rib is doing much better. No difficulty with turning self. Surgical incisions healing w /o any complications. No evident sensorimotor deficits to the lower extremities. Intermittent bradycardia. Wound culture positive for Staphylococcus aureus on final . POD #11 () s/p: 1. Extreme lateral, trans-psoas approach with left T11 rib resection, debridement R1-5-[id number]-osteomyelitis 2. Extreme lateral approach to bilateral psoas muscle abscess evacuation. 3. L2-3 interbody fusion with PEEK lateral cage, left T11 rib autograft 4. Bilateral L2-L4 posterior spinal instrumentation with percutaneous pedicle screw fixation. Plan: Primary management per Hospitalist. Antibiotics per Infectious Disease. Neuro checks. TLSO brace when OOB. Mobilise patient w/assistance. Physical Therapy eval & tx. Patient is able to be discharged from Neurosurgery's perspective. (Onur Montana) Attending Statement The exam, history, and the medical decision-making described in the above note were completed with the assistance of the mid-level provider. I reviewed and agree with the findings presented. I attest that I had a [id number] encounter with the patient on the same day, and personally performed and documented my assessment and findings in the medical record. Ambulating well with walker Discussed discharge plan and instructions with patient Stable for discharge from NS standpoint (José Antonio Krause MD) Onur Montana Sep 28, 2017 11:58 José Antonio Krause MD Sep 28, 2017 22:45
[2017-09-28] MEDS ORDERED: SODIUM CHLORIDE 0.9% FLUSH 10 ML FLUSH IV FLUSH PRN (16:45)
--- NOTE | 2017-09-28 16:59 | RADRPT ---
EXAM DATE/TIME: 09/28/2017 16:36 [facility] COMPARISON: CHEST SINGLE AP, June 09, 2017, 18:27. INDICATIONS : PICC line placement verification MEDICAL HISTORY : Hypertension. Renal failure. Hep C. Substance abuse. Left psoas muscle abscess SURGICAL HISTORY : None. ENCOUNTER: Subsequent ACUITY: 2 weeks PAIN SCORE: 0/10 LOCATION: chest FINDINGS: A single AP portable expiratory view the chest was obtained and demonstrates a right-sided PICC line with the tip near the junction of right atrium and superior vena cava with no pneumothorax. There is mild hazy opacity at the left lung base. The heart size is within normal limits. There is a minimal l eft apical pneumothorax now identified measuring up to approximately 3-4 mm. CONCLUSION: 1. Minimal left apical pneumothorax now identified 2. Right-sided PICC line in place. Martin Desouza MD on September 28, 2017 at 16:54 Board Certified Radiologist. This report was verified electronically.
[2017-09-28] MEDS: DAPTOmycin INJ 650 MG in SODIUM CHLORIDE 0.9% INJ 100 ML IV SCH (17:11)
--- NOTE | 2017-09-28 19:04 | HHI.PR ---
Subjective Remarks Resting comfortably in bed I was told by the case work aide patient got accepted by [facility] Objective Vitals Vital Signs Date Time Temp Pulse Resp B/P (MAP) Pulse Ox O2 Delivery O2 Flow Rate FiO2 09/28/17 12:00 98.0 58 21 107/57 (74) 97 09/28/17 08:00 97.7 65 18 116/61 (79) 97 09/28/17 04:00 97.8 72 16 154/69 (97) 96 09/28/17 00:00 97.7 59 16 107/62 (77) 97 09/27/17 20:00 97.7 57 16 112/59 (76) 99 09/27/17 19:50 57 I/O 09/27/17 09/27/17 09/27/17 09/28/17 09/28/17 09/28/17 07:00 15:00 23:00 07:00 15:00 23:00 Intake Total 500 ml 600 ml Balance 500 ml 600 ml Intake Oral 500 ml 600 ml # Voids 3 1 3 # Bowel Movements 0 1 1 Objective Remarks GENERAL: This is a well-nourished, well-developed patient, in no apparent distress. CARDIOVASCULAR: RRR, no gallops, or rubs. RESPIRATORY: Fair air entry bilaterally. No W, R, or R GASTROINTESTINAL: Abdomen soft, non-tender, nondistended. Positive bowel sounds MUSCULOSKELETAL: Extremities without clubbing, cyanosis, or edema. Pedal pulses appreciated NEUROLOGICAL: Awake and alert. Moves all extremity. Normal speech.no focal neurological deficit, brace in place Procedures 09/17/17 1. Extreme lateral, trans-psoas approach with left T11 rib resection, debridement [id number]-osteomyelitis 2. Extreme lateral approach to bilateral psoas muscle abscess evacuation. 3. L2-3 interbody fusion with PEEK lateral cage, left T11 rib autograft 4. Bilateral L2-L4 posterior spinal instrumentation with percutaneous pedicle screw fixation. A/P Problem List: (1) Discitis of lumbar region ICD Code: M46.46 - Discitis, unspecified, lumbar region (2) Psoas abscess ICD Code: K68.12 - Psoas muscle abscess (3) Intractable pain ICD Code: R52 - Pain, unspecified (4) Renal insufficiency ICD Code: N28.9 - Disorder of kidney and ureter, unspecified (5) A-fib ICD Code: I48.91 - Unspecified atrial fibrillation (6) IVDU (intravenous drug user) ICD Code: F19.90 - Other psychoactive substance use, unspecified, uncomplicated Assessment and Plan 66-year-old man with 09/28: Plan to discharge today dispensed to continue IV antibiotic per ID recommendation 1. L-Spine Discitis/Osteomyelitis: Recurrent. Appreciate input from neurosurgery and s/p I&D 09/17/17 Continue with Cubicin and Cefepime pending final culture report per ID Pain management accordingly TLSO brace when out of bed PT to treat and eval 2. Psoas Abscess: Previous Left Psoas Abscess s/p CT-guided drainage, now increase in size w/ new small right psoas abscess.s/p bilateral psoas muscle abscess evacuation 09/17/17 by NSG. Continue with Cubicin and Cefepime pending final culture report 3. Intractable Pain: secondary to above, reports no relief w/ Tramadol, Continue PO/IV as needed 4. Renal Insufficiency: resolved 5. A. fib: continue home Digoxin, Metoprolol and Diltiazem. 6. IVDU: Denies recent use, last use May 2017 per patient, Ativan prn if needed. 7. DVT Prophylaxis: SCD/Teds Discharge Planning Addendum discharge has been held used to incidental finding of left apical pneumothorax while patient had a chest x-ray to check on the PICC line, pulmonary consulted will reassess chest x-ray in a.m. Ethan Montalvo MD Sep 28, 2017 19:04
--- NOTE | 2017-09-28 19:18 | RADRPT ---
EXAM DATE/TIME: 09/28/2017 18:56 [facility] COMPARISON: No previous studies available for comparison. INDICATIONS : Pneumothorax. MEDICAL HISTORY : Hypertension. Renal failure. Hep C. SURGICAL HISTORY : None. ENCOUNTER: Subsequent ACUITY: 1 day PAIN SCORE: 110 LOCATION: Left chest FINDINGS: Tiny apical pneumothorax again seen and not significantly changed. Mild consolidation and small effus ion at the left base also stable. Right lung remains clear. Right arm PICC with tip at the atriocaval junction again seen. CONCLUSION: No significant change. There is a tiny left apical pneumothorax again noted. Giovanni Banda MD on September 28, 2017 at 19:15 Board Certified Radiologist. This report was verified electronically.
--- NOTE | 2017-09-28 21:23 | MB ---
cc: Kenan Pereira MD DATE: 09/28/2017 REQUESTING PHYSICIAN: Ethan Montalvo MD REASON FOR CONSULTATION: Evaluation for pneumothorax. HISTORY OF PRESENT ILLNESS: Mr. Hamlin is a 66-year-old white male with history of IV drug use, MRSA bacteremia, MRSA L2-3 diskitis, hepatitis C, atrial fibrillation. The patient was admitted in the hospital with increased back pain. He has seen neurosurgeon and he had a surgery done before. He has MRSA infection, being treated with antibiotic and the plan was to let him go with outpatient antibiotic. He had a PICC line done. Chest x-ray shows he has a small tiny apical pneumothorax. Repeat chest x-ray shows no change in the pneumothorax. He had no fever or chills. No night sweats. No nausea or vomiting. PAST MEDICAL HISTORY: Significant for history of IV drug use, MRSA infection, diskitis hepatitis C, atrial fibrillation. MEDICATIONS: He is currently taking morphine p.r.n., daptomycin IV, Celexa 20 mg a day, digoxin 0.125 mg, diltiazem 90 mg a day, Protonix 40 mg a day, thiamine 100 mg a day, metoprolol 25 mg q. 8 hours, albuterol and Atrovent nebulizer treatment, Xanax p.r.n. ALLERGIES: NO KNOWN DRUG ALLERGIES. SOCIAL HISTORY: He was before, now he is . He worked for [employer]. 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 Has history of smoking in the past and drinks. Has history of drug use in the past. FAMILY HISTORY: He has 5 children, one of them is doing residency in [employer]. REVIEW OF SYSTEMS: Normally, he is up, around, active, and very athletic. No seizure, stroke, epilepsy. No DVT or pulmonary embolism. PHYSICAL EXAMINATION: GENERAL: Pleasant, elderly male, not in acute distress. VITAL SIGNS: Blood pressure 107/57, heart rate 50, respirations 21, temperature 98. HEENT: Pupils are equal and reactive to light. Oral mucosa and nasal mucosa normal. NECK: Supple. JVP not raised. CHEST: Equal bilaterally. No rhonchi or wheeze. CARDIAC: S1, S2 normal. ABDOMEN: Benign. EXTREMITIES: No edema. IMPRESSION: 1. Small tiny apical pneumothorax. The patient is clinically stable. 2. Methicillin-resistant Staphylococcus aureus infection. 3. History of intravenous drug abuse. 4. Hepatitis. 5. Atrial fibrillation. PLAN: Discussed with the patient. Clinically, he is stable. Continue antibiotic per ID recommendation. Repeat a chest x-ray in the morning. If x-rays remain stable, no further intervention will be needed. Further treatment pending the course in the hospital. Thank you, Dr. Montalvo, for this consult. MD ADOLFO Maria/SB , 08:38 PM , 09:22 PM
[2017-09-28] MEDS: ALPRAZolam 0.5 MG TAB PO PRN (21:24)
[2017-09-29] VITALS: BP 111/62; PULSE 63; RESP 18; TEMP 97.2; O2SAT 98
[2017-09-29 04:00] VITALS: BP 120/60; PULSE 60; RESP 16; O2SAT 98
[2017-09-29] MEDS: METOPROLOL TARTRATE 25 MG TAB PO SCH ×2 (05:44→13:34)
[2017-09-29] MEDS: HYDROmorphone HCL 2 MG TAB PO PRN ×2 (05:45→09:57)
[2017-09-29 07:50] VITALS: BP 117/68; PULSE 55; RESP 20; TEMP 97.8; O2SAT 97
[2017-09-29] MEDS: CITALOPRAM HYDROBROMIDE 20 MG TAB PO SCH (08:15)
[2017-09-29] MEDS: FOLIC ACID 1 MG TAB PO SCH (08:15)
[2017-09-29] MEDS: DOCUSATE SODIUM 50 MG/SENNA 8.6 MG TAB PO SCH (08:15)
[2017-09-29] MEDS: PANTOPRAZOLE SOD 20 MG DELAYED RELEASE TAB PO SCH (08:15)
[2017-09-29] MEDS: MULTIVITAMIN TAB PO SCH (08:15)
[2017-09-29] MEDS: THIAMINE HCL 100 MG TAB PO SCH (08:15)
[2017-09-29] MEDS: DIGOXIN 0.125 MG TAB PO SCH (08:16)
[2017-09-29] MEDS: DILTIAZEM HCL 90 MG TAB PO SCH ×2 (08:16→13:34)
[2017-09-29] MEDS: SODIUM CHLORIDE 0.9% FLUSH 10 ML FLUSH IV FLUSH SCH (08:21)
[2017-09-29] MEDS ORDERED: SODIUM CHLORIDE 0.9% FLUSH 10 ML FLUSH IV FLUSH SCH (09:00)
--- NOTE | 2017-09-29 10:52 | RADRPT ---
EXAM DATE/TIME: 09/29/2017 10:33 [facility] COMPARISON: CHEST SINGLE AP, September 28, 2017, 18:56. INDICATIONS : Evaluate left pneumothorax. MEDICAL HISTORY : Hypertension. Renal failure. Hep C. Substance abuse. Left psoas muscle abcess. SURGICAL HISTORY : Lumbar fusion. ENCOUNTER: Subsequent ACUITY: 2 days PAIN SCORE: 0/10 LOCATION: Left chest FINDINGS: Single AP view of the chest. Right-sided PICC line in place with the tip of the catheter at the cavoa trial junction. Minimal left apical pneumothorax again seen measuring 2 mm. Lungs are clear. Cardiome diastinal silhouette within normal limits. No evidence of pleural effusion or pneumothorax. CONCLUSION: Decrease in size of tiny left apical pneumothorax. Scott Morfin MD on September 29, 2017 at 10:49 Board Certified Radiologist. This report was verified electronically.
[2017-09-29 12:17] VITALS: BP 121/59; PULSE 54; RESP 20; TEMP 97.5; O2SAT 100
[2017-09-29] MEDS: ACETAMINOPHEN/HYDROcodone 325 MG/10 MG TAB PO PRN (13:34)
--- NOTE | 2017-09-30 07:51 | HHI.DS ---
Discharge Summary Admission Date Sep 13, 2017 at 02:16 Discharge Date: Sep 29, 2017 Admitting Diagnosis discitis, psoas muscle abscess (1) Discitis of lumbar region ICD Code: M46.46 - Discitis, unspecified, lumbar region (2) Psoas abscess ICD Code: K68.12 - Psoas muscle abscess (3) Intractable pain ICD Code: R52 - Pain, unspecified (4) Renal insufficiency ICD Code: N28.9 - Disorder of kidney and ureter, unspecified (5) A-fib ICD Code: I48.91 - Unspecified atrial fibrillation (6) IVDU (intravenous drug user) ICD Code: F19.90 - Other psychoactive substance use, unspecified, uncomplicated Procedures 09/17/17 1. Extreme lateral, trans-psoas approach with left T11 rib resection, debridement [id number]-osteomyelitis 2. Extreme lateral approach to bilateral psoas muscle abscess evacuation. 3. L2-3 interbody fusion with PEEK lateral cage, left T11 rib autograft 4. Bilateral L2-L4 posterior spinal instrumentation with percutaneous pedicle screw fixation. picc /line /placemet / Brief History - From Admission This is a 66-year-old male with a PMH of Anxiety, Depression, IVDU and h/o L- Spine Discitis w/ Psoas Abscess who presented to the ER w/ complaints of severe back pain x1 wk. Notes pain is constant, severe, 10/10, worse w/ movement, radiation down right leg. Denies incontinence or weakness. Previous admit 2017 w/ prolonged hospitalization for L-Spine Discitis and Left Psoas Abscess s/ p CT-guided drainage, followed by Dr. Hernandez and Dr. Krause. States he completed antibiotics recently and was seen by ID approx 2wks ago w/ normal lab work. Presented to PCP's office earlier this week for pain complaints and given Tramadol which he states has given him no relief, was told to return to office on Thursday, however states pain was too severe and decided to come to the ER. Denies fever, chills, chest pain or cough. Denies recent IVDU, last use was May 2017. On arrival, BP 152/86, HR 93, O2 sat 99% RA, Afebrile. WBC 19.0. Chemistry essentially at baseline. LFTs mildly elevated in comparison to previous labs from 06/20/2017. INR 1.1. UA with small LE, mild bacteriuria. CT Abdomen/Pelvis with progressive endplate and vertebral body destruction at L2-L3 and L3-L4 with increased soft tissue density paraspinous regions and retroperitoneum with adenopathy concerning for ongoing infection and discitis. MRI T-spine with no significant change, no evidence of abscess in thoracic spine region. MRI L-spine with evidence of osteomyelitis/discitis of lumbar spine, L2-L3 collection decreased in size however epidural soft tissue enhancement has increased in severity and extent, with increased central canal stenosis. Slight increase in size of left psoas abscess and new small right psoas abscess. s/p Blood Cultures and Vanco/Clinda/Cefepime in ER. PE at Discharge GENERAL: This is a well-nourished, well-developed patient, in no apparent distress. CARDIOVASCULAR: RRR, no gallops, or rubs. RESPIRATORY: Fair air entry bilaterally. No W, R, or R GASTROINTESTINAL: Abdomen soft, non-tender, nondistended. Positive bowel sounds MUSCULOSKELETAL: Extremities without clubbing, cyanosis, or edema. Pedal pulses appreciated NEUROLOGICAL: Awake and alert. Moves all extremity. Normal speech.no focal neurological deficit, brace in place Hospital Course 66-year-old man with admitted with L-Spine Discitis/Osteomyelitis: Recurrent. neurosurgery patient had s/p I&D 09/17/17 Started on IV antibiotic per ID, discharged on daptomycin as per the recommendation Pain management provided TLSO brace when out of bed PT to treat and eval Psoas Abscess: Previous Left Psoas Abscess s/p CT-guided drainage, now increase in size w/ new small right psoas abscess.s/p bilateral psoas muscle abscess evacuation 09/17/17 by NSG. Continue with Cubicin and Cefepime pending final culture report Intractable Pain: secondary to above, reports no relief w/ Tramadol, Continue PO/IV as needed Renal Insufficiency: resolved A. fib: continue home Digoxin, Metoprolol and Diltiazem. On day of discharge 09/28 patient had a PICC line, chest x-ray followed the PICC line showed incidental left apical small aneurysm, discharge was held, pulmonary consulted, recommended repeating x-ray in the next day morning if it is stable or decreasing he can be discharged on his IV antibiotic, the next day x-ray showing decreased size of the pneumothorax, patient was continued to proceed with discharge to sniff [id number] encounter performed with the patient on discharge day, as well as physical exam, summary of hospitalization course and postdischarge plan has been D/W the patient. D/W nurse D/W manager rn case. Discharge medications reviewed and printed and signed, post discharge follow up visit with PCP and other specialist as well as Brief hospital course and discharge summary has been placed. Pt Condition on Discharge: Fair Discharge Disposition: Discharge to SNF Discharge Time: > 30 minutes Discharge Instructions DIET: Follow Instructions for: Heart Healthy Diet Activities you can perform: See Additionl Instruction Other Activity Instructions: pt Follow up Referrals: Appointment for Follow Up - 2 Weeks @ [facility] with Kiki Snyder MD New Medications: Daptomycin Inj (Cubicin Inj) 500 Mg Bag 650 MG IV Q24H for Infection for 42 Days, BAG 0 Refills Must dilute in appropriate IV Fluid prior to administration Epinephrine Inj (Epinephrine Inj) 1 Mg/Ml (1 Ml) Inj 0.3 MG IV PUSH ONCE PRN for ALLERGIC REACTION, #1 VIAL Epinephrine Inj (Epinephrine Inj) 1 Mg/Ml (1 Ml) Inj 0.3 MG SQ ONCE PRN for ALLERGIC REACTION, #1 VIAL Give with any signs of respiratory distress. Hydrocortisone Inj (Solu-Cortef Inj) 250 Mg/2 Ml Inj 250 MG IV PUSH ONCE PRN for ALLERGIC REACTION, #1 VIAL 0 Refills Give over 30-60 seconds. Continued Medications: Aspirin (Tgt Aspirin) 81 Mg Chw 81 MG CHEW DAILY for Blood Clot Prevention, #30 EA Citalopram (Celexa) 20 Mg Tab 20 MG PO DAILY for 30 Days, TAB Digoxin (Digoxin) 0.125 Mg Tab 0.125 MG PO DAILY for 30 Days, TAB Diltiazem (Diltiazem) 90 Mg Tab 90 MG PO QID for 30 Days, TAB Ferrous Sulfate (Ferosul) 325 Mg (65 Mg Iron) Tablet 325 MG PO BID@12,17 for 30 Days Folic Acid (Folic Acid) 1 Mg Tablet 1 MG PO DAILY for 30 Days Lactobacillus Acidophilus (Acidophilus/l-Sporogenes) 35 Million Cell-25 Million Cell Tab 1 TAB PO TID for Probiotic, #180 TAB Methocarbamol (Methocarbamol) 500 Mg Tab 500 MG PO TID PRN for MUSCLE SPASM, #60 TAB Metoprolol Tartrate (Metoprolol Tartrate) 25 Mg Tab 25 MG PO Q8HR for 30 Days, TAB Multivitamin with Folic Acid (Thera Tablet) 400 Mcg Tablet 1 TAB PO DAILY for 30 Days Oxycodone HCl/Acetaminophen (Oxycodone-Acetaminophen 5-325) 5 Mg-325 Mg Tablet 1 TAB PO Q6H PRN for Pain, #25 TAB (This prescription has been renewed) Pantoprazole (Protonix) 20 Mg Tab 20 MG PO DAILY for 30 Days, TAB Thiamine HCl (Gnp Vitamin B-1) 100 Mg Tab 100 MG PO DAILY for 30 Days, TAB [Albuterol-Ipratropium Neb] () 1 AMPULE NEBU 1 AMPULE NEB Q4HR NEB PRN for SHORTNESS OF BREATH for 30 Days [Petrolat-Zinc Barrier Oint] () 120 APPLIC/120 GM OINT 1 APPLIC TOPICAL BID for 30 Days Ethan Montalvo MD Sep 30, 2017 07:51
== END 2017-09-29 14:05 | DRG 456 ==
LOC: NEPC 18:33 → NEDA 09-13 02:16 → NEPFCDU 09-13 03:16 → N05A 09-14 03:29
PROVIDERS: ADMIT Hospitalist; ATTEND Hospitalist
PROC: 0K9P0ZX Drainage of Left Hip Muscle, Open Approach, Diagnostic (ICD-10-PCS; 2017-09-17)
PROC: 0QB00ZZ Excision of Lumbar Vertebra, Open Approach (ICD-10-PCS; 2017-09-17)
PROC: 0K9 Muscles, Drainage (ICD-10-PCS; 2017-09-17)
PROC: 0SB20ZX Excision of Lumbar Vertebral Disc, Open Approach, Diagnostic (ICD-10-PCS; 2017-09-17)
PROC: 0SG00AJ Fusion of Lumbar Vertebral Joint with Interbody Fusion Device, Posterior Approach, Anterior Column, Open Approach (ICD-10-PCS; principal; 2017-09-17 12:48)
PROC: 05HY33Z Insertion of Infusion Device into Upper Vein, Percutaneous Approach (ICD-10-PCS; 2017-09-28)
DX: M46.26 Osteomyelitis of vertebra, lumbar region (principal); K68.12 Psoas muscle abscess; N17.9 Acute kidney failure, unspecified; I48.91 Unspecified atrial fibrillation; R00.1 Bradycardia, unspecified; E87.1 Hypo-osmolality and hyponatremia; J93.9 Pneumothorax, unspecified; E11.65 Type 2 diabetes mellitus with hyperglycemia; M46.46 Discitis, unspecified, lumbar region; Z87.440 Personal history of urinary (tract) infections; Z86.14 Personal history of Methicillin resistant Staphylococcus aureus infection; M48.061 Spinal stenosis, lumbar region without neurogenic claudication; B19.20 Unspecified viral hepatitis C without hepatic coma; R00.0 Tachycardia, unspecified; I10 Essential (primary) hypertension; Z87.891 Personal history of nicotine dependence; B95.62 Methicillin resistant Staphylococcus aureus infection as the cause of diseases classified elsewhere
CPT/HCPCS: 36430; 36569; 71045; 72100; 72131; 72157; 72158; 74176; 76000; 76937; 80048; 80053; 80307; 81001; 82550; 83605; 85025; 85610; 85652; 85730; 86140; 86403; 86850; 86900; 86901; 86920; 87015; 87040; 87070; 87102; 87116; 87147; 87186; 87205; 87206; 93005; 94150; 96361; 96365; 96367; 96368; 96375; A9579; C1713; C9290; J0690; J0692; J0878; J1100; J1580; J1642; J2250; J2270; J2370; J2710; J3010; J3370; J7030; J7040; J7120; L0200; L0484; P9016